=== PATIENT | male | born 1945 | race Caucasian/White ===

== ENCOUNTER → 2017-06-20 12:13 | Outpatient (CLI) | payer MEDICARE, SELFPAY ==
[2017-06-20 13:10] LABS: Basophils # 0.1 K/mm3 (0-0.2); Basophils % 1.2 % (0.1-2.0); Eosinophils # 0.4 K/mm3 (0.0-0.4); Eosinophils % 4.8 % (0.1-12.0); Hematocrit 44.7 % (42.0-52.0); Hemoglobin 14.5 g/dL (14.1-18.0); Lymphocytes # 2.6 K/mm3 (0.7-4.5); Lymphocytes % 34.3 K/mm3 (10-50); Mean Corpuscular HGB Conc 32.4 g/dL (31.8-35.4); Mean Corpuscular Hemoglobin 31.9 pg (27.0-31.2); Mean Corpuscular Volume 98.4 fl (80-94); Mean Platelet Volume 7.7 fl (7.4-10.4); Monocytes # 0.5 K/mm3 (0.1-1.0); Monocytes % 6.8 % (1.7-9.3); Neutrophils # 3.9 K/mm3 (1.8-7.8); Neutrophils % 52.9 % (37.0-80.0); Platelet Count 237 K/mm3 (142-424); Red Blood Count 4.54 M/mm3 (4.60-6.20); Red Cell Distribution Width 12.9 % (11.5-17.5); White Blood Count 7.4 K/mm3 (4.8-10.8)
[2017-06-20 14:25] LABS: Alanine Aminotransferase 46 U/L (12-78); Albumin Level 4.1 gm/dL (3.4-5.0); Albumin/Globulin Ratio 1.5 (1.1-1.8); Alkaline Phosphatase 57 U/L (46-116); Anion Gap 10.2 mEq/L (5-15); Aspartate Amino Transferase 19 U/L (15-37); Bilirubin,Total 0.4 mg/dL (0.2-1.0); Blood Urea Nitrogen 15 mg/dL (7-18); Calcium 9.1 mg/dL (8.5-10.1); Carbon Dioxide 32 mmol/L (21.0-32.0); Chloride 103 mmol/L (98-107); Chol/HDL Ratio 3.3 (1-3.5); Cholesterol 135 mg/dL (140-200); Creatinine,Serum 0.95 mg/dL (0.70-1.30); Estimated Glomerular Filt Rate 78 ml/min (>60); GFR (African American) 95 ML/MIN (>60); Globulin 2.8 gm/dl (1.3-3.2); Glucose 106 mg/dL (74-106); HDL Cholesterol 41 mg/dL (27-67); LDL Cholesterol 72 mg/dL (0-130); Potassium 4.2 mmoL/L (3.5-5.1); Sodium 141 mmol/L (136-145); Total Protein,Serum 6.9 gm/dL (6.4-8.2); Triglycerides 111 mg/dL (30-200); VLDL Cholesterol 22 mg/dL (0-40)
== END ==
PROVIDERS: Visit Provider Internal Medicine Adolescent Medicine
DX: R20.9 Unspecified disturbances of skin sensation (principal); R73.9 Hyperglycemia, unspecified; I25.10 Atherosclerotic heart disease of native coronary artery without angina pectoris
CPT/HCPCS: 36415; 80053; 80061; 83036; 85025

== ENCOUNTER → 2017-06-22 11:08 | Outpatient (CLI) | payer MEDICARE, OTHER, SELFPAY ==
--- NOTE | 2017-06-22 11:14 | MR_ITS ---
MR head/brain wo/w con Ordering Physician: Curtis Montes MD Patient Age: 72 years: Male HISTORY: ITS.REASON: FACIAL PARESTHESIAfacial paresthesia left jaw pain 1 week ago pain is improved TECHNIQUE: Precontrast Multiplanar FLAIR, T1, T2 weighted images along with axial diffusion/ADC imaging performed on 1.5 T. Siemens, MRI. Postcontrast imaging [id number] ProHance T1-weighted images axial & coronal plane performed COMPARISON :No previous head CT for relevant studies FINDINGS Diffusion images show no acute infarct or ischemia Postcontrast images show no abnormal areas of enhancement. No mass lesion. No subdural collection Mild diffuse cerebral atrophy. There are scattered small high signal foci throughout the cerebral hemispheres bilaterally as seen on both the sensitive FLAIR and T2 weighted images. These are diffusely scattered attending to be more subcortical and peripherally than typically seen for deep white matter disease. These are more numerous superiorly & with sparing of the temporal lobes. However I see no enhancing characteristics at these lesions to raise concern regarding other process or metastatic disease at these foci. Thus at this point more likely favor small vessel ischemic gliotic changes which has a right more peripheral distribution of the small vessel ischemic gliotic foci in this patient.. Is or history of vascular disease or vascular risk factors Also note slight increased signal of the central leanne bilaterally which most likely reflects some early white matter gliotic changes at the leanne, & extending the cerebellar peduncles bilateral.. No focal lacunar infarct. Although less likely, Minimal expression of Central pontine myelolysis changes could also yield similar pattern as might be considered if patient has history or risk factors to suggest such. Posterior fossa otherwise satisfactory. cerebellar hemisphere unremarkable well-maintained. CP angles are clear. IACs unremarkable. Increased signal, opacification of numerous mastoid air cells bilaterally particularly towards the mastoid tip region. This reflects mild/moderate bilateral mastoid effusion feature-slightly more evident on right. The paranasal sinuses are well-developed and clear. Orbits satisfactory/ unremarkable. Minor deviation nasal septum. Mid septum slight convex.. Laure bullosa of middle turbinate on right. . ===IMPRESSION ==== 1.. Scattered high signal foci throughout cerebral hemispheres bilaterally. These demonstrate slightly more peripheral distribution than typical seen before microangiopathic small vessel ischemic etiology however there is no enhancement nor other features]. Continue r favor small vessel disease etiology for these foci in this age patient.. 2. Also note slightly increased signal at the central leanne which most likely reflects similar small vessel ischemic gliotic changes as well.. (Unlikely Subtle central pontine myelolysis, although might be considered if appropriate history) 3. No mass lesion. No abnormal areas of enhancement. No territorial infarct. 4. Incidental Mild mastoid effusions bilaterally .
--- NOTE | 2017-06-22 12:21 | HMH.ITSHM ---
ATENOLOL ISOSORB MONO ER FOLI ACID LOSARTAN ATORVASTATIN ANORO ELLIPTA ACETAMINOPHIN BABY ASPIRIN MULTI VITAMIN
== END ==
PROVIDERS: PCP Internal Medicine Adolescent Medicine; Visit Provider Internal Medicine Adolescent Medicine
DX: R20.9 Unspecified disturbances of skin sensation (principal)
CPT/HCPCS: 70553; A9576

== ENCOUNTER → 2018-03-13 07:55 | Outpatient (CLI) | payer MEDICARE, OTHER, SELFPAY ==
--- NOTE | 2018-03-13 07:58 | CI_ITS ---
Cerebrovascular Exam Indications: 785.9 Bruit. IMPRESSIONS 1. The bilateral vertebral arteries are patent with normal antegrade flow. 2. Study suggests 20-49% stenosis involving the right internal carotid artery. No change from the study of 01-Jun-2016. 3. Study suggests 50-69% stenosis involving the right external carotid artery. No change from the study of 01-Jun-2016. 4. Study suggests 70-99% stenosis involving the left internal carotid artery. Disease progression from the study of 01-Jun-2016. 5. Study suggests 70-99% stenosis involving the left common carotid artery. Carotid duplex study. Complete study and Doppler flow study including spectral analysis, color and sheridan scale imaging. Height: Height: 167.6cm. Height: 66in. Weight: Weight: 68kg. Weight: 149.7lb. Body mass index: BMI: 24.2kg/m^2. Body surface area: BSA: 1.79m^2. Location: Vascular laboratory. Patient status: Outpatient. Tables: Arterial flow: + +--------+---------+ Location V sys V ed + +--------+---------+ Right CCA - proximal 44.8cm/s 13.4cm/s + +--------+---------+ Right CCA - distal 47.1cm/s 14.1cm/s + +--------+---------+ Right ECA 423cm/s -98.2cm/s + +--------+---------+ Right ICA - proximal 116cm/s 32.2cm/s + +--------+---------+ Right ICA - mid 130cm/s 33.8cm/s + +--------+---------+ Right ICA - distal 89.6cm/s 25.9cm/s + +--------+---------+ Right vertebral 80.8cm/s 24.7cm/s + +--------+---------+ Left CCA - proximal 324cm/s 33.4cm/s + +--------+---------+ Left CCA - mid 117cm/s 28.1cm/s + +--------+---------+ Left CCA - distal 91.2cm/s 18.2cm/s + +--------+---------+ Left ECA 140cm/s 18.2cm/s + +--------+---------+ Left ICA - proximal 254cm/s 53.3cm/s + +--------+---------+ Left ICA - mid 152cm/s 44.9cm/s + +--------+---------+ Left ICA - distal 123cm/s 42.1cm/s + +--------+---------+ Left vertebral 73cm/s 19.6cm/s + +--------+---------+ Velocity ratios: + + + + + + Right, V sys Right, V ed Left, V sys Left, V ed + + + + + + Max ICA/mid CCA 2.17 1.9 + + + + + + Max ICA/dist CCA 2.76 2.4 2.79 2.93 + + + + + + Distal ICA/mid CCA 1.05 1.5 + + + + + + (Report amended ) Electronically signed by: Tariq Castillo [id number]
== END ==
PROVIDERS: PCP Internal Medicine Adolescent Medicine; Visit Provider Internal Medicine
DX: E78.2 Mixed hyperlipidemia (principal); F17.200 Nicotine dependence, unspecified, uncomplicated; I10 Essential (primary) hypertension; I25.810 Atherosclerosis of coronary artery bypass graft(s) without angina pectoris; I73.9 Peripheral vascular disease, unspecified; I77.9 Disorder of arteries and arterioles, unspecified; R01.1 Cardiac murmur, unspecified; R09.89 Other specified symptoms and signs involving the circulatory and respiratory systems
CPT/HCPCS: 93880

== ENCOUNTER → 2018-07-15 10:05 | Outpatient (CLI) | payer MEDICARE, OTHER, SELFPAY ==
[2018-07-15 11:03] LABS: Basophils # 0.1 K/mm3 (0-0.2); Basophils % 0.8 % (0.1-2.0); Eosinophils # 0.4 K/mm3 (0.0-0.4); Eosinophils % 5.2 % (0.1-12.0); Hematocrit 41.5 % (42.0-52.0); Hemoglobin 13.8 g/dL (14.1-18.0); Lymphocytes # 2.5 K/mm3 (0.7-4.5); Mean Corpuscular HGB Conc 33.3 g/dL (31.8-35.4); Mean Corpuscular Hemoglobin 31.7 pg (27.0-31.2); Mean Corpuscular Volume 95.2 fl (80-94); Mean Platelet Volume 7.1 fl (7.4-10.4); Monocytes # 0.5 K/mm3 (0.1-1.0); Monocytes % 5.9 % (1.7-9.3); Neutrophils # 4.4 K/mm3 (1.8-7.8); Neutrophils % 56.2 % (37.0-80.0); Platelet Count 271 K/mm3 (142-424); Red Blood Count 4.36 M/mm3 (4.60-6.20); Red Cell Distribution Width 13.5 % (11.5-17.5); White Blood Count 7.8 K/mm3 (4.8-10.8)
[2018-07-15 11:58] LABS: Alanine Aminotransferase 42 U/L (12-78); Albumin Level 4.3 gm/dL (3.4-5.0); Albumin/Globulin Ratio 1.5 (1.1-1.8); Alkaline Phosphatase 57 U/L (46-116); Anion Gap 13.4 mEq/L (5-15); Aspartate Amino Transferase 24 U/L (15-37); Bilirubin,Total 0.5 mg/dL (0.2-1.0); Blood Urea Nitrogen 18 mg/dL (7-18); Calcium 9.9 mg/dL (8.5-10.1); Carbon Dioxide 30 mmol/L (21.0-32.0); Chloride 101 mmol/L (98-107); Chol/HDL Ratio 3.5 (1-3.5); Cholesterol 145 mg/dL (140-200); Creatinine,Serum 1.02 mg/dL (0.70-1.30); Estimated Glomerular Filt Rate 72 ml/min (>60); GFR (African American) 87 ML/MIN (>60); Globulin 2.9 gm/dl (1.3-3.2); Glucose 103 mg/dL (74-106); HDL Cholesterol 41 mg/dL (27-67); LDL Cholesterol 71 mg/dL (0-130); Potassium 4.4 mmoL/L (3.5-5.1); Sodium 140 mmol/L (136-145); Thyroid Stimulating Hormone 1.65 uIU/ml (0.358-3.740); Total Protein,Serum 7.2 gm/dL (6.4-8.2); Triglycerides 166 mg/dL (30-200); VLDL Cholesterol 33 mg/dL (0-40)
[2018-07-15 12:11] LABS: Erythrocyte Sedimentation Rate 11 mm/hr (0-20)
[2018-07-16 08:12] LABS: Vitamin B12 538 pg/mL (232-1245)
== END ==
PROVIDERS: Visit Provider Internal Medicine Adolescent Medicine
DX: M54.16 Radiculopathy, lumbar region (principal); R73.9 Hyperglycemia, unspecified; I10 Essential (primary) hypertension
CPT/HCPCS: 36415; 80053; 80061; 82607; 83036; 84443; 85025; 85651

== ENCOUNTER → 2018-07-22 08:56 | Outpatient (CLI) | payer MEDICARE, OTHER, SELFPAY ==
--- NOTE | 2018-07-22 09:07 | CT_ITS ---
CT angio abdomen/femoral INDICATION: Claudication, left-sided calf pain ITS.REASON: CLAUDICATION,PVD ORDERING PHYSICIAN: Curtis Montes MD PATIENT AGE: 73 years COMPARISON: None TECHNIQUE: Axial images are obtained following the bolus administration of 120 mg of Optiray 350 contrast. Sagittal and coronal reformatted images are reviewed as well. All CT scans at the facility use one or more dose reduction, viz: automated exposure control, ma/kV adjustment per patient size (including targeted exams where dose is matched to indication, i.e. head), or iterative reconstruction technique. FINDINGS: CT angiographic findings: Diffuse calcific atheromatous plaque is noted throughout. Moderate stenosis involves the ostium of the celiac artery of 50%. Severe stenosis involves the ostium of the superior mesenteric artery of 90% or greater. The inferior mesenteric artery is patent with high-grade stenosis at the ostium. Calcific plaque involves the proximal aspect of the right renal artery may be a stent in this area. No significant stenosis. There is high-grade stenosis at the ostium of the left renal artery of 70%. No evidence of aortic aneurysm. Severe atheromatous calcific plaque involves the iliac arteries. A patent stent is present at the proximal aspect of the right iliac. There is severe stenosis involving the right common femoral artery of 70%. Scattered atheromatous plaque with subsegmental stenoses involves the superficial femoral artery on the right with 70% stenosis involving the proximal right SFA short segment. There is 70% stenosis of the mid aspect of the right SFA and 75% short segment stenosis of the distal right SFA. Severe stenosis involves the distal right SFA proximal to the popliteal due to calcific plaque of 75-80%. Severe atheromatous changes involving the right popliteal and tibial peroneal trunk with scattered areas of 70-80% stenosis. Posterior tibial and dorsalis pedis arteries are patent at the ankle on the right. On the left there is a patent external iliac artery stent proximally. There is an area of 60-70% stenosis of the left common femoral artery. Segmental stenoses also involves the left superficial femoral artery with a longer area of high-grade stenosis involving the mid left SFA at 90%. This measures approximately 8 cm in length. The distal left SFA is occluded at Jimmy's canal with reconstitution of the popliteal with scattered segmental stenoses of the popliteal and tibial peroneal trunk. Severe stenosis involves the proximal tibial peroneal throughout the greater. Segmental stenoses involves the runoff vessels which are difficult to evaluate due to the small size. The posterior tibial artery is patent at the ankle on the left. Nonvascular findings: Bilateral renal cysts. Colonic diverticulosis. No evidence of diverticulitis Bilateral hernias containing fat. IMPRESSION: Abnormal CT angiogram of the abdominal aorta and bilateral runoffs. Significant arterial findings include: 1. 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 Severe calcific atherosclerotic changes of the lower extremities on both sides. There is severe left SFA long segment narrowing with occlusion distally with severe atherosclerotic changes of the tibial peroneal trunk on both sides. Severe stenosis of the right SFA and tibial peroneal trunk as well. Please see above for detailed description.
--- NOTE | 2018-07-22 09:37 | HMH.ITSHM ---
Current Home Medications as stated by this patient Lawrence Alonso or dental detail representative. []METOPROLOL,LOSATTIN,PLAVIX FLOIC ACID ATORVASTATIN,INHARANISA ASPIRIIN
== END ==
PROVIDERS: PCP Internal Medicine Adolescent Medicine; Visit Provider Internal Medicine Adolescent Medicine
DX: I70.213 Atherosclerosis of native arteries of extremities with intermittent claudication, bilateral legs (principal)
CPT/HCPCS: 75635; Q9967

== ENCOUNTER 2018-08-05 08:02 | Day surgery (SDC) | payer MEDICARE, OTHER, SELFPAY ==
[2018-08-05] VITALS (42 sets, daily range): BP systolic 91–180; BP diastolic 45–83; PULSE 53–69; RESP 16–20; TEMP 37.1; O2SAT 91–100; BMI 25.2
--- NOTE | 2018-08-05 | IR_ITS ---
DATE OF CATHETERIZATION:08/05/2018 10:47 AM PROCEDURE: 1. Left femoral arterial access 2. Left retrograde femoral angiogram 3. Catheter placement in the left common iliac artery 4. Left common iliac artery retrograde angiogram 5. Catheter placement in the abdominal aorta 6. Abdominal aortography with bilateral iliofemoral angiography 7. Bilateral iliofemoral runoff 8. Bare-metal stent deployment to the left common iliac artery INDICATION: 1. Peripheral artery disease 2. Coamo class III and IV claudication 3. 60 mm transstenotic gradient from the aorta to the left common femoral artery secondary to left common iliac artery stenosis Left common iliac artery stenosis Informed consent was obtained prior to the procedure. COMPLICATIONS: None ESTIMATED BLOOD LOSS: Blood loss less than 10 cc. TECHNIQUE:1% lidocaine used to anesthetize the right groin. The right femoral artery could not be accessed due to extensive and severe calcifications. At this point one percent lidocaine was then used to anesthetize the left groin and left femoral artery was accessed via the Seldinger technique. A 5 Chadian sheath was placed in the left femoral artery. Significant calcification was present which would not allow a J-wire to pass. An advantage wire was then used to traverse the iliofemoral system. Following this a JR4 catheter was advanced into the left common iliac artery where angiography was performed to determine the best route for passing the wire. After significant manipulation I was eventually able to pass the wire through the severe iliac artery stenosis. The pigtail catheter was in placed in the abdominal aorta and aortic pressure was measured. A 60 to 70 mm transstenotic gradient was identified. Following iliofemoral angiography and bilateral iliofemoral runoff 5 Chadian sheath was exchanged for a 6 Chadian sheath. Retrograde angiography was performed through the sheath and an 8 mm x 37 mm Medtronic EV 3 stents was deployed at 20 benito reducing the critical stenosis to 0%. Following this procedure no transstenotic gradient was identified. Closing ACT was 286 seconds. At the end of the procedure the patient transferred the postop holding are stable condition for sheath removal The distal abdominal aorta is severely calcified with no stenosis greater than 20% The right common iliac artery is severely calcified with the stent in its proximal through mid segment. This stent is widely patent with mild in-stent restenosis. The left common iliac artery has dense severe calcifications with severe ostial stenosis. The remaining stent has mild intimal hyperplasia with no significant stenosis greater than 30% Bilateral external iliac arteries are moderately calcified with no stenosis greater than 30% The right internal iliac artery is occluded while the left internal iliac artery has an ostial 80% stenosis but is patent. Distally the vessel has 90% tandem stenoses The right common iliac artery is severely densely calcified subtotally occluded with very scant antegrade flow supplying the SFA and profundus. The left common femoral artery has a distal 80% concentric stenosis proximal to the SFA The bilateral profunda femoris arteries are patent The bilateral superficial femoral arteries are severely densely calcified but are patent with slow antegrade flow the left popliteal artery appears to be subtotally occluded and densely calcified with collaterals from the profunda femoris. The right popliteal artery has 80% eccentric stenoses but is patent with antegrade flow. Distally the vasculature is severely diseased and calcified. With very slow antegrade flow to the foot Impression: Dense extensive calcification as described above Severe ostial left common iliac artery stenosis which was succes
[2018-08-05 09:05] LABS: Basophils # 0.1 K/mm3 (0-0.2); Basophils % 0.9 % (0.1-2.0); Eosinophils # 0.4 K/mm3 (0.0-0.4); Eosinophils % 6.1 % (0.1-12.0); Hematocrit 38.2 % (42.0-52.0); Hemoglobin 13.1 g/dL (14.1-18.0); Lymphocytes # 2.3 K/mm3 (0.7-4.5); Lymphocytes % 31.9 % (10-50); Mean Corpuscular HGB Conc 34.3 g/dL (31.8-35.4); Mean Corpuscular Hemoglobin 32.1 pg (27.0-31.2); Mean Corpuscular Volume 93.7 fl (80-94); Mean Platelet Volume 7.1 fl (7.4-10.4); Monocytes # 0.4 K/mm3 (0.1-1.0); Monocytes % 5.7 % (1.7-9.3); Neutrophils % 55.4 % (37.0-80.0); Platelet Count 260 K/mm3 (142-424); Red Blood Count 4.07 M/mm3 (4.60-6.20); Red Cell Distribution Width 13.3 % (11.5-17.5); White Blood Count 7.1 K/mm3 (4.8-10.8)
[2018-08-05 09:12] LABS: Anion Gap 10.5 mEq/L (5-15); Blood Urea Nitrogen 18 mg/dL (7-18); Calcium 9.4 mg/dL (8.5-10.1); Carbon Dioxide 31 mmol/L (21.0-32.0); Chloride 101 mmol/L (98-107); Creatinine Clearance Estimated 63 mL/min (50-200); Creatinine,Serum 1.06 mg/dL (0.70-1.30); Estimated Glomerular Filt Rate 69 ml/min (>60); GFR (African American) 83 ML/MIN (>60); Glucose 96 mg/dL (74-106); Potassium 3.5 mmoL/L (3.5-5.1); Sodium 139 mmol/L (136-145)
[2018-08-05 12:49] LABS: CATHL Activated Clotting Time 289 SEC (74-125)
--- NOTE | 2018-08-05 13:57 | HMH.PHACLD ---
Lawrence Alonso has received discharge medication counseling on the following medications: PATIENT ALREADY TAKING ASPIRIN, PLAVIX, METOPROLOL, LOSARTAN/HCTZ, AND ATORVASTATIN AT HOME. NO NEW HOME MEDICATIONS THIS TIME. PATIENT ASKED ABOUT PAIN MEDICATION DUE TO LEG PAIN AND BLOCKAGE. THIS WAS REFERRED ON TO [facility] WHO IS CALLING [facility].
== END 2018-08-05 19:40 | disposition home or self-care (01) ==
LOC: CATHLAB 08:03
PROVIDERS: PCP Internal Medicine Adolescent Medicine; Visit Provider Internal Medicine
DX: I70.213 Atherosclerosis of native arteries of extremities with intermittent claudication, bilateral legs (principal); I70.223 Atherosclerosis of native arteries of extremities with rest pain, bilateral legs; I70.92 Chronic total occlusion of artery of the extremities; Z95.820 Peripheral vascular angioplasty status with implants and grafts; I10 Essential (primary) hypertension; Z72.0 Tobacco use; I25.810 Atherosclerosis of coronary artery bypass graft(s) without angina pectoris; Z88.0 Allergy status to penicillin; Z88.8 Allergy status to other drugs, medicaments and biological substances; Z79.82 Long term (current) use of aspirin; Z79.51 Long term (current) use of inhaled steroids; Z79.899 Other long term (current) drug therapy; I77.1 Stricture of artery
CPT/HCPCS: 37221; 80048; 85025; 85347; 99152; 99153; C1725; C1769; C1876; C1894; J1644; J2720; Q9967

== ENCOUNTER → 2018-08-14 08:45 | Outpatient (CLI) | payer MEDICARE, OTHER, SELFPAY ==
[2018-08-14 09:13] LABS: Basophils # 0.1 K/mm3 (0-0.2); Basophils % 1.1 % (0.1-2.0); Eosinophils # 0.5 K/mm3 (0.0-0.4); Eosinophils % 6.9 % (0.1-12.0); Hematocrit 37.7 % (42.0-52.0); Hemoglobin 12.7 g/dL (14.1-18.0); Lymphocytes # 2.6 K/mm3 (0.7-4.5); Lymphocytes % 36.8 % (10-50); Mean Corpuscular HGB Conc 33.8 g/dL (31.8-35.4); Mean Corpuscular Hemoglobin 31.5 pg (27.0-31.2); Mean Corpuscular Volume 93.2 fl (80-94); Mean Platelet Volume 6.9 fl (7.4-10.4); Monocytes # 0.5 K/mm3 (0.1-1.0); Monocytes % 6.4 % (1.7-9.3); Neutrophils # 3.4 K/mm3 (1.8-7.8); Neutrophils % 48.9 % (37.0-80.0); Platelet Count 284 K/mm3 (142-424); Red Blood Count 4.04 M/mm3 (4.60-6.20); Red Cell Distribution Width 13.2 % (11.5-17.5); White Blood Count 7.1 K/mm3 (4.8-10.8)
[2018-08-14 11:20] LABS: Anion Gap 14.4 mEq/L (5-15); Blood Urea Nitrogen 16 mg/dL (7-18); Calcium 10.1 mg/dL (8.5-10.1); Carbon Dioxide 30 mmol/L (21.0-32.0); Chloride 100 mmol/L (98-107); Creatinine,Serum 0.93 mg/dL (0.70-1.30); Estimated Glomerular Filt Rate 80 ml/min (>60); GFR (African American) 97 ML/MIN (>60); Glucose 105 mg/dL (74-106); Potassium 4.4 mmoL/L (3.5-5.1); Sodium 140 mmol/L (136-145)
== END ==
PROVIDERS: Visit Provider Internal Medicine
DX: I25.10 Atherosclerotic heart disease of native coronary artery without angina pectoris (principal)
CPT/HCPCS: 36415; 80048; 85025

== ENCOUNTER 2019-09-05 23:43 | Emergency (ER) | payer MEDICARE, OTHER, SELFPAY ==
[2019-09-05 23:56] VITALS: BP 168/89; RESP 18; TEMP 36.6; O2SAT 98; BMI 24.2
--- NOTE | 2019-09-05 23:56 | ECG_ITS ---
APPROVED REPORT Exam: Resting ECG HR:78 bpm ECG Measurements Heart Rate 78 AXES ND 154 P 84 QRSd 98 QRS 70 QT 414 T 67 QTc 471 <Conclusion> Normal sinus rhythm with PAC'S Consider inferolateral ischemia Abnormal ECG Electronically signed by : Jason Menezes, 09/09/2019 08:51:39
[2019-09-06 00:28] VITALS: PULSE 70; PULSE 74
--- NOTE | 2019-09-06 00:43 | XR_ITS ---
PROCEDURE: XR CHEST 2V Patient Age:74Y CLINICAL HISTORY: shortness of air, dyspnea patient has COPD quit smoking regularly 1 year ago. 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 COMPARISON: CXR CHEST(2 VIEWS-NOT PORTABLE) from 03/02/2016 CXR CHEST(2 VIEWS-NOT PORTABLE) from 03/03/2016 FINDINGS: Upright PA and lateral chest performed. Nothing definitely acute. Lungs hyperexpansion with flattening of diaphragm evident of reflecting COPD. The slight blunting at the CP angles is similar to previous studies in reflect such as well. No focal consolidation or pneumonia on Only some scant linear scarring atelectasis towards lung bases most likely right. . A previous sternotomy, CABG. Heart normal size zack and mediastinal structures satisfactory Chest wall and T-spine satisfactory stable. Again the slight protruding protruding tip of sternum noted and likely correlates with the clinically palpable prominent right rib beneath the right breast IMPRESSION: Stable chest with nothing definitely acute COPD/hyperexpansion again noted. Sternotomy/CABG again noted Dictated by: Дмитрий He MD 09/06/2019 09:00 Electronically signed by Дмитрий He MD in [place] 09/06/2019 09:00
[2019-09-06 00:48] LABS: Basophils # 0.3 K/mm3 (0-0.2); Basophils % 2.3 % (0.1-2.0); Eosinophils # 1.5 K/mm3 (0.0-0.4); Eosinophils % 12.5 % (0.1-12.0); Hematocrit 45.8 % (42.0-52.0); Hemoglobin 15.5 g/dL (14.1-18.0); Lymphocytes % 25.3 % (10-50); Mean Corpuscular HGB Conc 33.8 g/dL (31.8-35.4); Mean Corpuscular Hemoglobin 33.6 pg (27.0-31.2); Mean Corpuscular Volume 99.4 fl (80-94); Mean Platelet Volume 7.5 fl (7.4-10.4); Monocytes # 0.7 K/mm3 (0.1-1.0); Monocytes % 6.2 % (1.7-9.3); Neutrophils # 6.4 K/mm3 (1.8-7.8); Neutrophils % 53.6 % (37.0-80.0); Platelet Count 243 K/mm3 (142-424); Red Blood Count 4.61 M/mm3 (4.60-6.20); Red Cell Distribution Width 13.9 % (11.5-17.5); White Blood Count 11.9 K/mm3 (4.8-10.8)
[2019-09-06 00:56] LABS: Alanine Aminotransferase 36 U/L (12-78); Albumin Level 5.2 g/dl (3.5-5.0); Albumin/Globulin Ratio 1.6 (1.1-1.8); Alkaline Phosphatase 73 U/L (38-126); Anion Gap 9.8 mEq/L (5-15); Aspartate Amino Transferase 41 U/L (17-59); Bilirubin,Total 0.4 mg/dl (0.2-1.3); Blood Urea Nitrogen 16 mg/dl (9-20); Calcium 10.3 mg/dl (8.4-10.2); Carbon Dioxide 33 mmol/L (22.0-30.0); Chloride 99 mmol/L (98-107); Creatinine Clearance Estimated 63 mL/min (50-200); Estimated Glomerular Filt Rate 95 ml/min (>60); GFR (African American) 115 ML/MIN (>60); Globulin 3.2 g/dL (1.3-3.2); Glucose 114 mg/dl (74-100); Potassium 3.8 mmoL/L (3.5-5.1); Sodium 138 mmol/L (136-145); Total Protein,Serum 8.4 g/dl (6.3-8.2)
--- NOTE | 2019-09-06 01:03 | HMH.EDSOB ---
ED Disposition Clinical Impression: Acute exacerbation of chronic obstructive airways disease Disposition: Home, Self-Care Condition on Discharge: Good Instructions: DI for Chronic Obstructive Pulmonary Disease Prescriptions: Azithromycin 250 mg PO DAILY 5 Days #6 tab Transmission Status: Pending to [id number] methylPREDNISolone [Medrol 4mg tab] 4 mg PO DIRECTED #21 tab Transmission Status: Pending to [id number] Referrals: Curtis Montes MD [Primary Care Provider] - - Critical Care Critical Care Time: No Attestation: On 09/05/19, the high probability of a clinically significant, sudden or life threatening deterioration of the following system(s) required my full and direct attention, intervention and personal management. The time I documented below is in addition to time spent performing reported procedures but includes the following listed in this critical care notation. Medical Decision Making - Medical Records Medical records reviewed: Yes: I reviewed the patient's medical records. - Ricardo Inquiry Pt receiving controlled substance: No Vital Signs: 09/05/19 23:56 09/06/19 00:28 Temperature 97.8 F Temperature Source Oral Pulse Rate 74 Respiratory Rate 18 Blood Pressure [Right Arm] 168/89 H Blood Pressure Mean [Right Arm] 115 Blood Pressure Source [Right Arm] Automatic Cuff Blood Pressure Position [Right Arm] Sitting 02 Sat by Pulse Oximetry 98 Oxygen Delivery Method Room Air - Lab Data Lab results reviewed: Yes: I reviewed the patient's lab results. Lab Results 09/06/19 00:02: WBC 11.9 H, RBC 4.61, Hgb 15.5, Hct 45.8, MCV 99.4 H, MCH 33.6 H, MCHC 33.8, RDW 13.9, Plt Count 243, MPV 7.5, Neut % (Auto) 53.6, Lymph % (Auto) 25.3, [place] % (Auto) 6.2, Eos % (Auto) 12.5 H, Baso % (Auto) 2.3 H, Neut # (Auto) 6.4, Lymph # (Auto) 3.0, [place] # (Auto) 0.7, Eos # (Auto) 1.5 H, Baso # (Auto) 0.3 H 09/06/19 00:02: Sodium 138, Potassium 3.8, Chloride 99, Carbon Dioxide 33 H, Anion Gap 9.8, BUN 16, Creatinine 0.80, Estimated Creat Clear 63, Estimated GFR 95, Est GFR ( Amer) 115, Glucose 114 H, Calcium 10.3 H, Total Bilirubin 0.4, AST 41, ALT 36, Alkaline Phosphatase 73, Total Protein 8.4 H, Albumin 5.2 H, Globulin 3.2, Albumin/Globulin Ratio 1.6 Result diagrams: 09/06/19 00:02 09/06/19 00:02 Orders (Tests/Meds): ED MEDICATIONS Generic Name Dose Route Start Last Admin Trade Name Freq PRN Reason Stop Dose Admin Sodium Chloride 1,000 mls @ 999 mls/hr 09/06/19 00:15 09/06/19 00:10 Sod Chlor 0.9% 1000ml Bag IV 09/06/19 01:15 999 mls/hr .Q1H1M RADHA Administration Sodium Chloride 10 ml 09/06/19 00:32 Sodium Chloride 0.9% 10ml Vial IV 10/06/19 00:31 NEEDED PRN dilute protonix Discontinued Medications Generic Name Dose Route Start Last Admin Trade Name Freq PRN Reason Stop Dose Admin Methylprednisolone Sodium Succinate 125 mg 09/06/19 00:07 09/06/19 00:09 Solu-Medrol 125mg/2ml Vial IV 09/06/19 00:08 125 mg ONCE ONE Administration Pantoprazole Sodium 40 mg 09/06/19 00:32 Protonix 40mg Vial IV 09/06/19 00:33 ONCE ONE ORDERS Category Date Time Status Chest XR 2 view (NOT portable) [XR chest 2V] Stat Exams 09/06/19 00:43 Ordered Comprehensive Metabolic Panel Stat Lab 09/06/19 00:02 Results Troponin I Q3H Lab 09/06/19 03:45 Ordered Troponin I Q3H Lab 09/06/19 06:45 Ordered Troponin I Stat Lab 09/06/19 00:02 Results - Radiology Data #1 Image(s): Chest Preliminary Findings: Normal/NAD - ECG Data Tracing #1 I reviewed this ECG and interpreted as documented below: Normal Sinus Rhythm: Yes Resp/SOB HPI - General Chief Complaint: Shortness of Breath/Dyspnea Stated Complaint: Difficulty breathing Time Seen by Provider: 09/06/19 01:04 Mode of Arrival: Family Vehicle Limitations: No Limitations Description of Symptoms (Recalled from ER Triage Doc. by RN): shortness of air
[2019-09-06 01:08] LABS: Troponin I 0.02 ng/ml (0.00-0.034)
[2019-09-06 01:28] VITALS: BP 174/71; PULSE 72; RESP 17; TEMP 36.6; O2SAT 98
== END 2019-09-06 01:31 | disposition home or self-care (01) ==
PROVIDERS: Emergency Provider Family Medicine; PCP Internal Medicine Adolescent Medicine
DX: J44.1 Chronic obstructive pulmonary disease with (acute) exacerbation (principal); I25.10 Atherosclerotic heart disease of native coronary artery without angina pectoris; Z95.1 Presence of aortocoronary bypass graft; Z87.891 Personal history of nicotine dependence; Z88.0 Allergy status to penicillin; Z79.899 Other long term (current) drug therapy
CPT/HCPCS: 71046; 80053; 84484; 85025; 93005; 96365; 96375; 99282; 99283

== ENCOUNTER → 2019-10-20 09:47 | Outpatient (CLI) | payer MEDICARE, OTHER, SELFPAY ==
[2019-10-20 10:30] VITALS: PULSE 75; PULSE 76
== END ==
PROVIDERS: PCP Internal Medicine Adolescent Medicine; Visit Provider Internal Medicine Adolescent Medicine
DX: J44.1 Chronic obstructive pulmonary disease with (acute) exacerbation (principal)
CPT/HCPCS: 94060; 94618; 94640; 94726; 94729

== ENCOUNTER → 2020-02-26 15:49 | Outpatient (CLI) | payer MEDICARE, OTHER, SELFPAY ==
--- NOTE | 2020-02-26 15:55 | XR_ITS ---
PROCEDURE: XR CHEST 2V CLINICAL HISTORY: COPD W/ ACUTE EXACERBATION COMPARISON: CR CXR CHEST(2 VIEWS-NOT PORTABLE) from 03/02/2016 CR CXR CHEST(2 VIEWS-NOT PORTABLE) from 03/03/2016 CR XR CHEST 2V from 09/06/2019 FINDINGS: Prior CABG. Normal heart size. COPD. Hyperexpansion of the lungs with eventration of the diaphragm. No lobar consolidation or collapse. There are surgical clips in the neck on the left. No acute bony abnormalities. IMPRESSION: COPD. No change with no acute finding Dictated by: Tariq Castillo MD 02/26/2020 16:18 Tariq Castillo MD in [place] 02/26/2020 16:18
== END ==
PROVIDERS: PCP Internal Medicine Adolescent Medicine; Visit Provider Internal Medicine Adolescent Medicine
DX: J44.1 Chronic obstructive pulmonary disease with (acute) exacerbation (principal)
CPT/HCPCS: 71046

== ENCOUNTER → 2020-02-27 10:05 | Outpatient (CLI) | payer MEDICARE, OTHER, SELFPAY ==
[2020-02-27 11:46] LABS: Basophils % 0.3 % (0.1-2.0); Eosinophils % 0.1 % (0.1-12.0); Hematocrit 48.1 % (42.0-52.0); Hemoglobin 15.8 g/dL (14.1-18.0); Lymphocytes # 1.2 K/mm3 (0.7-4.5); Lymphocytes % 11.7 % (10-50); Mean Corpuscular HGB Conc 32.9 g/dL (31.8-35.4); Mean Corpuscular Hemoglobin 31.9 pg (27.0-31.2); Mean Corpuscular Volume 97.1 fl (80-94); Mean Platelet Volume 7.3 fl (7.4-10.4); Monocytes # 0.3 K/mm3 (0.1-1.0); Monocytes % 2.8 % (1.7-9.3); Neutrophils # 8.8 K/mm3 (1.8-7.8); Neutrophils % 85.1 % (37.0-80.0); Platelet Count 351 K/mm3 (142-424); Red Blood Count 4.95 M/mm3 (4.60-6.20); Red Cell Distribution Width 13.6 % (11.5-17.5); White Blood Count 10.3 K/mm3 (4.8-10.8)
[2020-02-27 11:50] LABS: MANUAL DIFFERENTIAL MANUAL DIFFERENTIAL (MANUAL DIFF)
[2020-02-27 13:13] LABS: Erythrocyte Sedimentation Rate 7 mm/hr (0-20)
[2020-02-27 14:40] LABS: Alanine Aminotransferase 28 U/L (12-78); Alkaline Phosphatase 88 U/L (38-126); Anion Gap 14.7 mEq/L (5-15); Aspartate Amino Transferase 29 U/L (17-59); Bilirubin,Total 0.6 mg/dl (0.2-1.3); Blood Urea Nitrogen 15 mg/dl (9-20); Calcium 10.5 mg/dl (8.4-10.2); Carbon Dioxide 30 mmol/L (22.0-30.0); Chloride 96 mmol/L (98-107); Chol/HDL Ratio 2.6 (1-3.5); Cholesterol 155 mg/dl (140-200); Estimated Glomerular Filt Rate 95 ml/min (>60); GFR (African American) 115 ML/MIN (>60); Globulin 2.5 g/dL (1.3-3.2); Glucose 128 mg/dl (74-100); HDL Cholesterol 60 mg/dl (40-60); Potassium 4.7 mmoL/L (3.5-5.1); Sodium 136 mmol/L (136-145); Total Protein,Serum 7.5 g/dl (6.3-8.2); Triglycerides 64 mg/dl (30-150); VLDL Cholesterol 13 mg/dL (0-40)
[2020-02-27 14:43] LABS: Lymphocytes % 17 % (10-50); Neutrophils % 83 % (42-76); Platelet Estimate Normal; RBC Morphology Normal; Total Cells Counted 100
[2020-02-27 14:50] LABS: Direct LDL Cholesterol 85.21 mg/dL (100-129)
== END ==
PROVIDERS: Visit Provider Internal Medicine Adolescent Medicine
DX: L40.50 Arthropathic psoriasis, unspecified (principal); R73.9 Hyperglycemia, unspecified
CPT/HCPCS: 36415; 80053; 80061; 85007; 85025; 85651

== ENCOUNTER → 2020-03-02 09:10 | Outpatient (CLI) | payer MEDICARE, OTHER, SELFPAY | PROVIDERS: Visit Provider Internal Medicine Adolescent Medicine | DX: R73.9 Hyperglycemia, unspecified (principal) | CPT/HCPCS: 36415; 83036 ==

== ENCOUNTER → 2020-03-15 08:26 | Outpatient (CLI) | payer MEDICARE, OTHER, SELFPAY ==
--- NOTE | 2020-03-15 08:30 | CT_ITS ---
PROCEDURE: CT LUNG SCREENING CLINICAL INDICATION: H/O NICOTINE DEPENDENCE Former Smoker Quit smoking 1 year ago 75 pack year smoking history COMPARISON: No exams were available for comparison TECHNIQUE: The exam was performed on a GE Light Speed [address] scanner using 2.90 mGy CTDI. A low dose helical CT CHEST was performed on a multi-detector scanner. All CT scans at the facility use one or more dose reduction, viz: automated exposure control, ma/kV adjustment per patient size (including targeted exams where dose is matched to indication, i.e. head), or iterative reconstruction technique. The LDCT was performed in a facility that meets the criteria for the screening program. Data regarding this exam was submitted to ACR which is an approved registry. The order for this exam indicates that it came as a result of a lung cancer screening counseling shard decision-making visit that included all the elements required of such a visit including smoking cessation. The radiologist interpreting this exam meets the CMS criteria for the LDCT lung cancer screening program. The exam is reported using the Lung-RADS classification scale and reported to the ACR registry. NOTE: This study was performed for the specific purposes of lung cancer screening and is not an alternative to diagnostic chest CT. RADIATION DOSE: CTDI vol(CT dose Index-volume) = 2.90mG DLP (Dose Length Product) = 117.50 mGcm FINDINGS: COPD changes. There is a 4 mm sub solid nodular opacity in the left upper lobe medially. There is a faint area of ground-glass density in the lingula nonspecific. OTHER FINDINGS: Prior CABG. Degenerative changes thoracic spine. Atherosclerotic changes aorta. Extensive coronary artery calcification. There is scattered small nodes in the mediastinum. Small hypodensity is present in the right lobe of the liver inferiorly at 9 mm nonspecific. Cannot further evaluate on this exam. There is a left renal cyst at 3 cm. IMPRESSION: Lung-RADS Category 2 Benign Appearance or Behavior Follow-up: Continue annual screening with LDCT in 12 months Dictated by: Tariq Castillo MD 03/29/2020 09:48 Tariq Castillo MD in [place] 03/29/2020 09:48
== END ==
PROVIDERS: PCP Internal Medicine Adolescent Medicine; Visit Provider Internal Medicine Adolescent Medicine
DX: Z87.891 Personal history of nicotine dependence (principal); Z12.2 Encounter for screening for malignant neoplasm of respiratory organs

== ENCOUNTER → 2020-06-18 13:31 | Outpatient (CLI) | payer MEDICARE, OTHER, SELFPAY | PROVIDERS: PCP Internal Medicine Adolescent Medicine; Visit Provider Internal Medicine Adolescent Medicine | DX: I35.0 Nonrheumatic aortic (valve) stenosis (principal) | CPT/HCPCS: 93306 ==

== ENCOUNTER → 2020-09-07 09:36 | Outpatient (POV) | payer MEDICARE, OTHER, SELFPAY ==
[2020-09-07 09:55] LABS: Basophils # 0.1 K/mm3 (0-0.2); Basophils % 0.9 % (0.1-2.0); Eosinophils # 0.6 K/mm3 (0.0-0.4); Eosinophils % 6.2 % (0.1-12.0); Hematocrit 39.3 % (42.0-52.0); Hemoglobin 12.9 g/dL (14.1-18.0); Lymphocytes # 2.1 K/mm3 (0.7-4.5); Lymphocytes % 22.3 % (10-50); Mean Corpuscular HGB Conc 32.8 g/dL (31.8-35.4); Mean Corpuscular Hemoglobin 31.4 pg (27.0-31.2); Mean Corpuscular Volume 95.6 fl (80-94); Mean Platelet Volume 7.6 fl (7.4-10.4); Monocytes # 0.5 K/mm3 (0.1-1.0); Monocytes % 5.5 % (1.7-9.3); Platelet Count 267 K/mm3 (142-424); Red Blood Count 4.11 M/mm3 (4.60-6.20); Red Cell Distribution Width 14.5 % (11.5-17.5); White Blood Count 9.3 K/mm3 (4.8-10.8)
[2020-09-07 10:30] LABS: Chloride 102 mmol/L (98-107)
[2020-09-07 10:31] LABS: Potassium 4.4 mmoL/L (3.5-5.1); Sodium 141 mmol/L (136-145)
[2020-09-07 10:33] LABS: Alanine Aminotransferase 26 U/L (12-78); Alkaline Phosphatase 66 U/L (38-126); Anion Gap 13.4 mEq/L (5-15); Aspartate Amino Transferase 29 U/L (17-59); Bilirubin,Total 0.9 mg/dl (0.2-1.3); Blood Urea Nitrogen 21 mg/dl (9-20); Carbon Dioxide 30 mmol/L (22.0-30.0); Estimated Glomerular Filt Rate 65 ml/min (>60); GFR (African American) 79 ML/MIN (>60)
[2020-09-07 10:34] LABS: Albumin Level 4.6 g/dl (3.5-5.0); Albumin/Globulin Ratio 2.1 (1.1-1.8); Calcium 9.7 mg/dl (8.4-10.2); Globulin 2.2 g/dL (1.3-3.2); Glucose 103 mg/dl (74-100); Total Protein,Serum 6.8 g/dl (6.3-8.2)
== END ==
PROVIDERS: PCP Internal Medicine Adolescent Medicine; Visit Provider Dermatology
DX: I10 Essential (primary) hypertension (principal)
CPT/HCPCS: 36415; 80053; 85025

== ENCOUNTER → 2020-09-21 14:35 | Outpatient (POV) | payer MEDICARE, OTHER, SELFPAY | PROVIDERS: Visit Provider Dermatology | DX: Z00.00 Encounter for general adult medical examination without abnormal findings (principal) ==

== ENCOUNTER → 2020-09-27 06:55 | Outpatient (CLI) | payer MEDICARE, OTHER, SELFPAY ==
--- NOTE | 2020-09-27 06:56 | NM_ITS ---
APPROVED REPORT Exam: Nuclear Stress Test Indication: CAD, CABG, HTN, High cholesterol, Tobacco use, SOB, Fatigue Patient Location: Outpatient Stress Tech: Mare Cronin MS Tech:Linda Levi, ARRT, RT (R)(N) Ht: 5 ft 6 in Wt: 150 lbs HR: 63 bpm BP: 149/67 mmHg BSA: 1.77 m2 BMI: 24.2 History: CAD, CABG, HTN, High cholesterol, Tobacco use, SOB, Fatigue Procedure: Patient received a 0.4 mg of intravenous Lexiscan, resting heart rate 63 bpm, resting blood pressure 149/67 mmHg, with Lexiscan maximum heart rate achived was 80 bpm which is Less than 85 % of the maximum predicted heart rate and blood pressure was 120/61 mmHg. With Lexiscan, patient denied any complaint of chest pain. Electrocardiogram Resting electrocardiogram showed sinus rhythm, with Lexiscan there is less than 1.[address] segment depression noted from the baseline EKG. The EKG portion of the Lexiscan is nondiagnostic. Cardiac Stress and Resting SPECT Images: Cardiac Stress and Resting SPECT images were obtained using technetium 99m Myoview 32.3 mCi stress and 9.83 mCi at rest. Gated SPECT for analysis of segmental wall motion and calculation of the ejection fraction also done. Prone images were also obtained. Cardiac stress and rest SPECT images show uniform myocardial activity without segmental perfusion abnormality, computer derived ejection fraction is 48% with no regional wall motion abnormality, however there is transient ischemic dilatation of the left ventricle seen, raising the concerns for presence of balanced ischemia. Conclusion: 1. The EKG portion of the Lexiscan is nondiagnostic 2. No scintigraphic evidence of reversible ischemia seen, computer derived ejection fraction 48% with no regional wall motion abnormality, however there is transient ischemic dilatation of the left ventricle seen, raising the concerns for presence of balanced ischemia. 3. Other causes for transient ischemic dilatation include hypertensive heart disease, microvascular disease, diabetes mellitus. Clinical correlation is recommended. 4. Abnormal Lexiscan Myoview study. Electronically signed by : Sean Nicole, 09/27/2020 19:39:02
--- NOTE | 2020-09-27 06:56 | CA_ITS ---
APPROVED REPORT Exam: Pharmacologic Technologist: Mare Cronin, Ht: 5 ft 6 in Wt: 158 lbs BSA: 1.81 m2 HR: 63 bpm BP: 149/67 mmHg Medical History Medications: Aspirin,,,,, Losartan,,,,, FOLIC ACID,,,,, Albuterol,,,,, CloPIdogrel,,,,, Toprol XL,,,,, AtorvaASTATIN,,,,, Multivitamin,,,,, PantoprazLE,,,,, ANora ELIPTA,,,,, Stress Test Details Test: LEXISCAN HR Resting HR: 58 bpm Max Heart Rate (APMHR): 146.057704 bpm Max HR Achieved: 88 bpm Target HR (85% APMHR): 124.868727 bpm % of APMHR: 60.27 Recovery HR: 74 bpm BP Resting BP: 149/67 mmHg Max BP: 149/67 mmHg Recovery BP: 111.0/55.0 mmHg ECG Clinical Exercise duration: 04:01 min Highest Stage Achieved: Stress ECG Conclusion Lexiscan portion completed. Pt c/o shortness of breath during peak infusion. Symptoms: No CP (+)SOB during peak infusion. Resolved in recovery. Arrhythmias/Ectopy: Occ PVC Occ PAC. ST-T Changes: Greater than 1.5mm ST Depression. Conclusion: Images to follow. Test Summary RECOVERY 04:00 . . 75 . 111/ 55 . . Stage 1 . . . . . . . Myoview Injected Stage 1 01:00 . . 82 . . . . Stage 2 01:00 . . 85 . 120/ 61 . . Stage 3 01:00 . . 82 . 131/ 54 . . Stage 4 01:00 . . 81 . 118/ 52 . . Stage 4 01:01 . . 81 . 118/ 52 . Stop exercise at 04:01 RECOVERY 01:00 . . 80 . 110/ 57 . . RECOVERY 02:00 . . 75 . 112/ 60 . . RECOVERY 03:00 . . 76 . 118/ 56 . . RECOVERY 04:00 . . 75 . 111/ 55 . . Electronically signed by : Sean Nicole, 09/27/2020 19:26:42
--- NOTE | 2020-09-27 08:46 | HMH.ITSHM ---
Current Home Medications as stated by this patient Lawrence Alonso or customer account representative. []METOPROLOL CLOPIDOGREL LOSARTAN FOLIC ACID ATORVASTATIN ASA MULTIVITAMIN PANTOPRAZOLE ALVARADO STRINGER
[2020-09-27 18:17] LABS: Vitamin B12 424 pg/mL (239-931)
[2020-10-29 07:14] LABS: 1,25 Dihydroxy Vitamin D 45; 1,25-Dihydroxy, Vitamin D-2 <10; 1,25-Dihydroxy, Vitamin D-3 44
== END ==
PROVIDERS: PCP Internal Medicine Adolescent Medicine; Visit Provider Urology
DX: E78.5 Hyperlipidemia, unspecified (principal); I10 Essential (primary) hypertension; I25.10 Atherosclerotic heart disease of native coronary artery without angina pectoris; I73.9 Peripheral vascular disease, unspecified; I77.9 Disorder of arteries and arterioles, unspecified; R06.00 Dyspnea, unspecified; R42 Dizziness and giddiness; Z95.1 Presence of aortocoronary bypass graft
CPT/HCPCS: 78452; 82607; 82652; 93017; A9502; J2785

== ENCOUNTER → 2020-09-27 16:12 | Outpatient (CLI) | payer MEDICARE, OTHER, SELFPAY | PROVIDERS: Visit Provider Urology | DX: R06.02 Shortness of breath (principal); R42 Dizziness and giddiness; I10 Essential (primary) hypertension; I25.810 Atherosclerosis of coronary artery bypass graft(s) without angina pectoris | CPT/HCPCS: 78452; 82607; 82652; 93017; A9502; J2785 ==

== ENCOUNTER → 2020-10-26 10:05 | Outpatient (CLI) | payer MEDICARE, OTHER, SELFPAY ==
--- NOTE | 2020-10-26 10:05 | CA_ITS ---
APPROVED REPORT Anodiser: CT Laterality: Bilateral Indications: MIMI Risk Factors Hypertension: Hyperlipidemia Smoking Surgery/Intervention Carotid Stent: left Doppler Spectral Velocity Analysis ECA (R) 557.70/ cm/s ECA (L) 185.80/ cm/s dICA (R) 76.40/22.20 cm/s dICA (L) 92.50/28.90 cm/s Tom (R) 74.60/22.00 cm/s Tom (L) 79.70/23.00 cm/s pICA (R) 76.40/15.80 cm/s pICA (L) 82.30/29.90 cm/s dCCA (R) 39.70/12.00 cm/s dCCA (L) 85.40/17.00 cm/s pCCA (R) 63.60/8.20 cm/s pCCA (L) 65.50/15.40 cm/s Vert (R) 55.10/ cm/s Vert (L) 62.40/ cm/s ICA/CCA 1.90 ICA/CCA 1.10 Findings Duplex evaluation demonstrates stenosis of the right proximal internal carotid artery in the range of 20-49%. Duplex evaluation demonstrates stenosis of the left proximal internal carotid artery in the range of 20-49%. Duplex evaluation demonstrates >70-99% stenosis of the left Common Carotid Artery. Duplex evaluation demonstrates antegrade flow of the bilateral Vertebral Arteries. Conclusion Duplex evaluation demonstrates stenosis of the right proximal internal carotid artery in the range of 20-49%. Duplex evaluation demonstrates stenosis of the left proximal internal carotid artery in the range of 20-49%. Duplex evaluation demonstrates >70-99% stenosis of the left Common Carotid Artery. Duplex evaluation demonstrates antegrade flow of the bilateral Vertebral Arteries. Electronically signed by : Tariq Castillo MD 10/26/2020 16:32:37
== END ==
PROVIDERS: PCP Internal Medicine Adolescent Medicine; Visit Provider Urology
DX: R42 Dizziness and giddiness (principal)
CPT/HCPCS: 93880

== ENCOUNTER → 2020-11-08 15:32 | Outpatient (CLI) | payer MEDICARE, OTHER, SELFPAY ==
[2020-11-08 16:40] LABS: Blood Urea Nitrogen 14 mg/dl (9-20); Estimated Glomerular Filt Rate 82 ml/min (>60); GFR (African American) 100 ML/MIN (>60)
== END ==
PROVIDERS: Visit Provider Internal Medicine
DX: Z01.818 Encounter for other preprocedural examination (principal)
CPT/HCPCS: 82565; 84520

== ENCOUNTER → 2020-11-10 13:38 | Outpatient (CLI) | payer MEDICARE, OTHER, SELFPAY ==
--- NOTE | 2020-11-10 13:39 | CT_ITS ---
Procedure: CT ANGIO NECK CLINICAL HISTORY: Carotid artery disease, abn CNI MIMI Previous surgery on lt side Abnormal finding COMPARISON: XA CARBILAT CL carotid BI from 03/19/2018 TECHNIQUE: IV Contrast: 100ml Isovue 370 Axial images obtained with sagittal and coronal reformats. All CT scans at the facility use one or more dose reduction, viz: automated exposure control, ma/kV adjustment per patient size (including targeted exams where dose is matched to indication, i.e. head), or iterative reconstruction technique. FINDINGS: Calcific plaque is present involving the aortic arch. The right brachiocephalic artery shows no significant stenosis. Calcific plaque is present in the distal right brachiocephalic region. Right carotid: The proximal aspect of the left common carotid artery shows no significant stenosis. Moderate to severe amount of calcific plaque is present at the right distal common carotid/bulb region causing approximately 50 percent stenosis of the proximal ICA and 90 percent stenosis of the proximal external carotid. Left carotid: Calcific plaque is present at the ostium. There is dense calcific plaque in the mid aspect of the left common carotid artery medially with approximately 40 percent diameter stenosis. There has been prior left carotid endarterectomy with the lumen widely patent. There is some calcific plaque in the mid aspect of the left internal carotid with 30 percent stenosis. Calcific plaque is present within the vertebrals on both sides with severe stenosis involving the left vertebral at C6-C7 level. This stenosis is approximately 80-90 percent. There is a short segment of severe stenosis involving the right vertebral at the C1 level. This area of stenosis is approximately 80 percent. Scattered calcific plaque is present involving the intracranial vessels within the cavernous portion of the carotids as well as the supraclinoid portion of both carotids. There is mild dilatation of the proximal aspect of the right posterior communicating artery at approximately 3 by 1 mm. There is mild dilatation of the proximal left posterior communicating artery as well at 3 x 2 mm consistent with bilateral infundibulum I. no AVM or intracranial enhancing lesion is evident. Small amount fluid is present in the mastoid sinuses on both sides. IMPRESSION: There is diffuse atherosclerotic disease of the carotid and vertebral vessels with resulting 50 percent stenosis of the proximal right ICA, 90 percent stenosis of the proximal right external carotid, 40 percent diameter stenosis involving the mid aspect of the left common carotid and 30 percent stenosis of the mid aspect of the left ICA. There is 80-90 percent stenosis involving the left vertebral to C6-C7 level an 80 percent stenosis involving the right vertebral at the C1 level. Intracranial atherosclerotic changes Prominent proximal aspect of the posterior communicating artery on both sides which is felt to be due to infundibulum I as opposed to aneurysms. Six-month follow-up suggested to confirm stability. Dictated by: Tariq Casitllo MD 11/11/2020 09:58 Tariq Castillo MD in [place] 11/11/2020 09:58
== END ==
PROVIDERS: PCP Internal Medicine Adolescent Medicine; Visit Provider Urology
DX: I65.23 Occlusion and stenosis of bilateral carotid arteries (principal)
CPT/HCPCS: 70498; Q9967

== ENCOUNTER → 2021-04-19 14:20 | Outpatient (CLI) | payer MEDICARE, OTHER, SELFPAY ==
[2021-04-19 15:53] LABS: Alanine Aminotransferase 28 U/L (12-78); Albumin Level 4.5 g/dl (3.5-5.0); Alkaline Phosphatase 60 U/L (38-126); Aspartate Amino Transferase 32 U/L (17-59); Bilirubin,Direct 0.2 mg/dl (0.0-0.4); Bilirubin,Indirect 0.2 mg/dL (0.0-0.9); Bilirubin,Total 0.4 mg/dl (0.2-1.3); Bilirubin,Unconjugated 0.2 mg/dL (0.0-1.1); Chol/HDL Ratio 2.7 (1-3.5); Cholesterol 128 mg/dl (140-200); HDL Cholesterol 47 mg/dl (40-60); Total Protein,Serum 6.8 g/dl (6.3-8.2); Triglycerides 242 mg/dl (30-150); VLDL Cholesterol 48 mg/dL (0-40)
[2021-04-19 16:05] LABS: Direct LDL Cholesterol 66.12 mg/dL (100-129)
== END ==
PROVIDERS: Visit Provider Urology
DX: E78.2 Mixed hyperlipidemia (principal); I10 Essential (primary) hypertension; I25.810 Atherosclerosis of coronary artery bypass graft(s) without angina pectoris; I73.9 Peripheral vascular disease, unspecified; I77.9 Disorder of arteries and arterioles, unspecified; R06.00 Dyspnea, unspecified; Z95.1 Presence of aortocoronary bypass graft
CPT/HCPCS: 36415; 80061; 80076

== ENCOUNTER → 2021-05-10 11:35 | Outpatient (CLI) | payer MEDICARE, OTHER, SELFPAY | PROVIDERS: PCP Internal Medicine Adolescent Medicine; Visit Provider Nurse Practitioner | DX: U07.1 COVID-19 (principal) | CPT/HCPCS: C9803; U0003; U0005 ==

== ENCOUNTER → 2021-07-22 06:45 | Outpatient (CLI) | payer MEDICARE, OTHER, SELFPAY ==
--- NOTE | 2021-07-22 06:57 | CT_ITS ---
FINAL REPORT CLINICAL HISTORY: NICOTINE DEPENDENCE smoker, 1/2 ppd x 55 years. copd, CAD FINDINGS: CTDI vol (mGy): 2.[address] images of the chest were obtained using the low-dose protocol for screening. There has been interval development of several enlarged AP window lymph nodes measuring 18 mm as well as new left hilar adenopathy. On the lung window images, there is mild emphysematous change and scarring. A new, spiculated nodule is seen in the medial left lower lobe measuring 19 mm. There are several right renal masses including an 8 mm mass in the posterior right kidney which does not appear to be a simple cyst. There is mild, nonspecific left adrenal enlargement, favor adenoma. IMPRESSION: Lung RADS category 4 X. findings very worrisome for lung neoplasm with metastatic adenopathy. Recommend PET CT as well as CT-guided FNA. Reviewed, Interpreted and Dictated by Karri Roldan III, MD Transcribed by Rach Sotomayor Authenticated by Karri Roldan III, MD on 07/22/2021 09:18:47 AM [facility]
== END ==
PROVIDERS: PCP Internal Medicine Adolescent Medicine; Visit Provider Internal Medicine Adolescent Medicine
DX: Z87.891 Personal history of nicotine dependence (principal); Z12.2 Encounter for screening for malignant neoplasm of respiratory organs
CPT/HCPCS: 71271

== ENCOUNTER → 2021-08-23 10:10 | Outpatient (POV) | payer MEDICARE, OTHER, SELFPAY | PROVIDERS: Visit Provider Dermatology | DX: Z00.00 Encounter for general adult medical examination without abnormal findings (principal) ==

== ENCOUNTER → 2021-08-24 14:40 | Outpatient (CLI) | payer MEDICARE, OTHER, SELFPAY | PROVIDERS: PCP Internal Medicine Adolescent Medicine; Visit Provider Internal Medicine Pulmonary Disease | DX: Z01.812 Encounter for preprocedural laboratory examination (principal); Z11.52 Encounter for screening for COVID-19 | CPT/HCPCS: C9803; U0003; U0005 ==

== ENCOUNTER 2021-08-26 10:11 | Day surgery (SDC) | payer MEDICARE, OTHER, SELFPAY ==
[2021-08-24 09:47] VITALS: BMI 25.0
--- NOTE | 2021-08-24 09:48 | SUR.PREOP ---
During pre-op phone call pt stated that he was unaware that he needed to stop ASA and plavix 5 days prior to procedure. Pt states last time he took both was on 08/23/21 @ 0700. Made Dr[address] Finch's office aware of this. Criselda states she will speak to Dr. Finch when he comes back from rounds on the floor and call pt back.
[2021-08-26] VITALS (11 sets, daily range): BP systolic 122–177; BP diastolic 62–76; PULSE 68–76; RESP 16–18; TEMP 36.2–43; O2SAT 92–98
--- NOTE | 2021-08-26 11:01 | P.PN_ITS ---
[facility] [place] Anesthesia Checklist - Patient Identification Patient Identification: Arm Band - Structural Data Admitted From: Home Planned Operative Procedure/s: Bronchoscopy with EBUS Consent for Planned Operative Procedure(s) Verified: Yes Verified Documents: Surgical Consent, History and Physical - NPO Status Verified Time NPO: 00:00 - Additional verifications Anesthesia Reactions: No Hx Blood Transfusions: Yes Blood Transfusion Reaction: No - Airway Assessment C-Spine Mobility Assessed: Yes (mp2) TMJ Mobility Assessed: Yes Dentition: Edentulous - Neurological Assessment Level of Consciousness: Awake, Alert - Anesthesia Plan Anesthesia Risk discussed: Yes Anesthesia Plan: Verified ASA Class: III Anesthesia Type: General [facility] [place] History I have reviewed the patient's past medical history: Yes Medical History: Reports:: Chronic Obstructive Pulmonary Disease (COPD), Coronary Artery Disease, Hyperlipidemia, Hypertension, Peripheral Artery Disease Denies:: Cancer, Diabetes Mellitus Type 1, Diabetes Mellitus Type 2, MRSA, Seizures *Have you ever received a pneumonia vaccine?: Yes *Have you received a flu vaccine this season?: Yes Other Medical History: Reports: Anemia, Arthritis. Denies: Blood Transfusion Reaction Anesthesia experience/problems:: nac Laterality Cases: Bilateral: Carpal Tunnel Release Other Surgeries: Yes: Angioplasty, CABG, Cardiac Catheterization, Cardiac Surgery Amputation: No - *Social History Last grade of school completed: Advanced degree Smoking Status: Current every day smoker Tobacco Type: cigarettes # Packs/Day (cigarettes): 1 Alcohol Intake: never Alcohol Intake Frequency:: holidays/special occasions only Substance Use Type: denies use *Occupational Status:: retired Housing: house Household Members: spouse *Travel in the last 8 weeks: None Family Hx:: Coronary Artery Disease, Hyperlipidemia, Hypertension
--- NOTE | 2021-08-26 13:19 | HMH.BRONCH ---
- Procedure: Date: 08/26/21 Patient Date of :: 1945 Procedure Performed:: Bronchoscopy endobronchial ultrasound guided fine-needle aspirate Indications:: Mediastinal and hilar lymphadenopathy Performing Provider:: Lexis Finch MD Referring Provider:: : Curtis Montes MD Sedation:: General anesthesia Procedure:: Endobronchial ultrasound-guided fine-needle aspiration: Including EBUS scope was advanced the ET tube and lymph node surveillance was performed. Patient noted to lymphadenopathy at stations 10 L and neck conglomerate of mass and lymph node at 4L. No other specific lymphadenopathy is noted on lymph node surveillance. EBUS FNA was performed at stations 10 L and 4L. Total of 6 passes were performed at each station samples were sent in CytoLyt for cytological examination. Pathology not at bedside for pulmonary evaluation. Tolerated the procedure well with no immediate complications. F/U clinic in 7 days with the results Findings:: Please see the procedure note Recommendations:: Please see the procedure note Complications:: None Estimated blood obtained (mL): 10
--- NOTE | 2021-08-26 13:22 | P.PN_ITS ---
[facility] Anesthesia Record Part I Intake, IV Amount: 1,200 Estimated blood loss (mL): 0 Urine output (mL): 0 Blood Pressure: 122/65 SaO2: 98 Pulse Rate: 75 Respiratory Rate: 16 Temperature: 97.2 F Patient is:: Drowsy, Stable Stable to PACU at:: 13:20
--- NOTE | 2021-08-29 07:18 | HMH.ANESII ---
[facility] Anesthesia Record Part II Discharge Time: 13:50 Destination: Home PACU nurse assessment reviewed?: Yes Patient Condition:: Good Anesthesia Complications:: None Swallowing reflex intact?: Yes Cyanosis?: No Blood Pressure: 124/62 Pulse Rate: 73 Temperature: 97.2 F Mental Status: Alert & Oriented Pain level:: 0 Nausea and/or vomitting:: None Intake, IV Amount: 0
[2021-08-29 07:19] VITALS: BP 124/62; PULSE 73; TEMP 36.2
== END 2021-08-26 14:34 | disposition home or self-care (01) ==
LOC: OR 10:12
PROVIDERS: PCP Internal Medicine Adolescent Medicine; Visit Provider Internal Medicine Pulmonary Disease
DX: C34.32 Malignant neoplasm of lower lobe, left bronchus or lung (principal); R59.0 Localized enlarged lymph nodes; R91.1 Solitary pulmonary nodule; F17.210 Nicotine dependence, cigarettes, uncomplicated; J44.9 Chronic obstructive pulmonary disease, unspecified; Z95.1 Presence of aortocoronary bypass graft; Z79.02 Long term (current) use of antithrombotics/antiplatelets; I25.10 Atherosclerotic heart disease of native coronary artery without angina pectoris; Z95.5 Presence of coronary angioplasty implant and graft
CPT/HCPCS: 31652; 88173; 88305; 88342; J2405

== ENCOUNTER → 2021-09-01 14:31 | Outpatient (CLI) | payer MEDICARE, OTHER, SELFPAY ==
[2021-09-01 15:57] LABS: Basophils # 0.1 K/mm3 (0-0.2); Basophils % 1.2 % (0.1-2.0); Eosinophils # 0.2 K/mm3 (0.0-0.4); Eosinophils % 1.4 % (0.1-12.0); Hematocrit 36.3 % (42.0-52.0); Hemoglobin 12.1 g/dL (14.1-18.0); Lymphocytes # 1.9 K/mm3 (0.7-4.5); Lymphocytes % 15.7 % (10-50); Mean Corpuscular HGB Conc 33.5 g/dL (31.8-35.4); Mean Corpuscular Hemoglobin 29.6 pg (27.0-31.2); Mean Corpuscular Volume 88.4 fl (80-94); Mean Platelet Volume 7.4 fl (7.4-10.4); Monocytes # 0.8 K/mm3 (0.1-1.0); Monocytes % 6.6 % (1.7-9.3); Neutrophils # 8.9 K/mm3 (1.8-7.8); Neutrophils % 75.2 % (37.0-80.0); Platelet Count 413 K/mm3 (142-424); Red Cell Distribution Width 14.8 % (11.5-17.5); White Blood Count 11.8 K/mm3 (4.8-10.8)
[2021-09-01 16:41] LABS: Alanine Aminotransferase 26 U/L (12-78); Albumin Level 4.2 g/dl (3.5-5.0); Albumin/Globulin Ratio 1.8 (1.1-1.8); Alkaline Phosphatase 78 U/L (38-126); Anion Gap 13.2 mEq/L (5-15); Aspartate Amino Transferase 25 U/L (17-59); Bilirubin,Total 0.2 mg/dl (0.2-1.3); Blood Urea Nitrogen 13 mg/dl (9-20); Calcium 9.7 mg/dl (8.4-10.2); Carbon Dioxide 31 mmol/L (22.0-30.0); Chloride 95 mmol/L (98-107); Estimated Glomerular Filt Rate 94 ml/min (>60); GFR (African American) 114 ML/MIN (>60); Globulin 2.3 g/dL (1.3-3.2); Glucose 93 mg/dl (74-100); Potassium 4.2 mmoL/L (3.5-5.1); Sodium 135 mmol/L (136-145); Total Protein,Serum 6.5 g/dl (6.3-8.2)
== END ==
PROVIDERS: Visit Provider Internal Medicine Medical Oncology
DX: C34.92 Malignant neoplasm of unspecified part of left bronchus or lung (principal)
CPT/HCPCS: 36415; 80053; 85025

== ENCOUNTER → 2021-09-03 10:24 | Outpatient (CLI) | payer MEDICARE, OTHER, SELFPAY ==
--- NOTE | 2021-09-03 10:32 | MR_ITS ---
PROCEDURE INFORMATION: Exam: MR Head Without and With Contrast Exam date and time: 09/03/2021 10:41 AM Age: 76 years old Clinical indication: Lung cancer staging. TECHNIQUE: Imaging protocol: MR of the head without and with intravenous contrast. Contrast material: PROHANCE; Contrast volume: 14 ml; Contrast route: IV; COMPARISON: BRAINWW MR head/brain wo/w con 06/22/2017 11:45 AM FINDINGS: Brain: There are occasional nonspecific foci of high signal abnormality in the bagley radiata and centrum semiovale. These are best seen on the flair images. These foci may represent areas of gliosis, demyelination, and/or chronic ischemic change. There are chronic brainstem ischemic changes. Cerebral ventricles: Normal. No ventriculomegaly. Bones/joints: Unremarkable. Paranasal sinuses: Normal as visualized. No acute sinusitis. Mastoid air cells: There is moderate bilateral mastoid disease. Orbital cavities: Unremarkable. Soft tissues: Unremarkable. Other findings: There is no abnormal enhancement. IMPRESSION: 1. There are occasional nonspecific foci of high signal abnormality in the bagley radiata and centrum semiovale. These are best seen on the flair images. These foci may represent areas of gliosis, demyelination, and/or chronic ischemic change. No acute infarct is identified. 2. There are chronic brainstem ischemic changes. 3. There is moderate bilateral mastoid disease. 4. No intracranial masses or abnormal enhancement to suggest metastatic disease.
== END ==
PROVIDERS: PCP Internal Medicine Adolescent Medicine; Visit Provider Internal Medicine Medical Oncology
DX: C34.92 Malignant neoplasm of unspecified part of left bronchus or lung (principal); Z03.89 Encounter for observation for other suspected diseases and conditions ruled out
CPT/HCPCS: 70553; A9576

== ENCOUNTER 2021-09-06 08:56 | Outpatient (CLI) | payer MEDICARE, OTHER, SELFPAY ==
[2021-09-06] VITALS (13 sets, daily range): BP systolic 119–163; BP diastolic 43–65; PULSE 56–83; RESP 18; TEMP 36.4; O2SAT 97–98; BMI 24.7
[2021-09-06 09:47] LABS: Magnesium 1.7 mg/dl (1.6-2.3)
== END 2021-09-06 16:25 | disposition home or self-care (01) ==
LOC: INF 08:57
PROVIDERS: PCP Internal Medicine Adolescent Medicine; Visit Provider Internal Medicine Medical Oncology
DX: C34.92 Malignant neoplasm of unspecified part of left bronchus or lung (principal); Z51.11 Encounter for antineoplastic chemotherapy
CPT/HCPCS: 83735; 96413; 96415; 96417; J2469; J8501; J9060; J9181

== ENCOUNTER 2021-09-07 09:00 | Outpatient (CLI) | payer MEDICARE, OTHER, SELFPAY ==
[2021-09-07 09:10] VITALS: BP 135/53; PULSE 84; RESP 18; TEMP 36.4; O2SAT 98
[2021-09-07 09:50] VITALS: BP 138/51; PULSE 88; RESP 18; O2SAT 98
[2021-09-07 10:20] VITALS: BP 144/54; PULSE 82; RESP 18; O2SAT 97
[2021-09-07 10:50] VITALS: BP 152/50; PULSE 84; RESP 18; O2SAT 98
[2021-09-07 11:35] VITALS: BP 135/56; PULSE 87; RESP 18; O2SAT 97
== END 2021-09-07 11:35 | disposition home or self-care (01) ==
LOC: INF 09:01
PROVIDERS: PCP Internal Medicine Adolescent Medicine; Visit Provider Internal Medicine Medical Oncology
DX: Z51.11 Encounter for antineoplastic chemotherapy (principal); C34.92 Malignant neoplasm of unspecified part of left bronchus or lung
CPT/HCPCS: 96415; J9181

== ENCOUNTER 2021-09-08 08:51 | Outpatient (CLI) | payer MEDICARE, OTHER, SELFPAY ==
[2021-09-08] VITALS (8 sets, daily range): BP systolic 121–159; BP diastolic 55–75; PULSE 62–73; RESP 16; O2SAT 96
--- NOTE | 2021-09-08 13:37 | DIET.NUTRFU ---
contacted patient to review any dietary concerns. He had no issues. Denied any nausea or wt loss. Provided contact information if anything arises.
== END 2021-09-08 11:35 | disposition home or self-care (01) ==
LOC: INF 08:51
PROVIDERS: PCP Internal Medicine Adolescent Medicine; Visit Provider Internal Medicine Medical Oncology
DX: Z51.11 Encounter for antineoplastic chemotherapy (principal); C34.92 Malignant neoplasm of unspecified part of left bronchus or lung
CPT/HCPCS: 96413; 96415; J9181

== ENCOUNTER → 2021-09-22 13:57 | Outpatient (CLI) | payer MEDICARE, OTHER, SELFPAY ==
[2021-09-22 14:03] VITALS: BMI 24.8
--- NOTE | 2021-09-22 14:06 | PC.NURSE ---
1405 CBC/CMP labs collected per L AC x1 stick per Barak Valverde RN. Patient here for appointment with Dr. Vaughan.
[2021-09-22 14:18] LABS: Basophils % 1.6 % (0.1-2.0); Chloride 99 mmol/L (98-107); Eosinophils # 0.1 K/mm3 (0.0-0.4); Eosinophils % 6.2 % (0.1-12.0); Hematocrit 30.6 % (42.0-52.0); Hemoglobin 10.2 g/dL (14.1-18.0); Lymphocytes # 1.1 K/mm3 (0.7-4.5); Mean Corpuscular HGB Conc 33.3 g/dL (31.8-35.4); Mean Corpuscular Hemoglobin 29.3 pg (27.0-31.2); Mean Corpuscular Volume 88.2 fl (80-94); Mean Platelet Volume 8.1 fl (7.4-10.4); Monocytes # 0.3 K/mm3 (0.1-1.0); Monocytes % 16.1 % (1.7-9.3); Neutrophils # 0.1 K/mm3 (1.8-7.8); Platelet Count 327 K/mm3 (142-424); Red Blood Count 3.47 M/mm3 (4.60-6.20); Red Cell Distribution Width 17.7 % (11.5-17.5); Sodium 133 mmol/L (136-145); White Blood Count 1.6 K/mm3 (4.8-10.8)
[2021-09-22 14:19] LABS: Potassium 3.9 mmoL/L (3.5-5.1)
[2021-09-22 14:21] LABS: Alanine Aminotransferase 32 U/L (12-78); Alkaline Phosphatase 78 U/L (38-126); Aspartate Amino Transferase 32 U/L (17-59); Blood Urea Nitrogen 10 mg/dl (9-20); Creatinine Clearance Estimated 63 mL/min (50-200); Estimated Glomerular Filt Rate 94 ml/min (>60); GFR (African American) 114 ML/MIN (>60)
[2021-09-22 14:22] LABS: Albumin Level 4.2 g/dl (3.5-5.0); Albumin/Globulin Ratio 1.7 (1.1-1.8); Anion Gap 8.9 mEq/L (5-15); Bilirubin,Total 0.1 mg/dl (0.2-1.3); Calcium 9.2 mg/dl (8.4-10.2); Carbon Dioxide 29 mmol/L (22.0-30.0); Globulin 2.5 g/dL (1.3-3.2); Glucose 123 mg/dl (74-100); Total Protein,Serum 6.7 g/dl (6.3-8.2)
[2021-09-22 14:23] LABS: Neutrophils % 5.1 % (37.0-80.0)
[2021-09-22 14:24] LABS: MANUAL DIFFERENTIAL MANUAL DIFFERENTIAL (MANUAL DIFF)
[2021-09-22 17:05] LABS: Anisocytosis 1+; Eosinophils % 2 % (0-3); Hypochromasia 2+; Lymphocytes % 28 % (10-50); Microcytosis 1+; Monocytes % 7 % (2-9); Neutrophils % 63 % (42-76); Ovalocytes 1+; Platelet Estimate Normal; Total Cells Counted 100
== END ==
PROVIDERS: PCP Internal Medicine Adolescent Medicine; Visit Provider Internal Medicine Medical Oncology
DX: C34.92 Malignant neoplasm of unspecified part of left bronchus or lung (principal)
CPT/HCPCS: 36415; 80053; 85007; 85025

== ENCOUNTER 2021-09-27 10:17 | Outpatient (CLI) | payer MEDICARE, OTHER, SELFPAY ==
[2021-09-27] VITALS (13 sets, daily range): BP systolic 145–180; BP diastolic 60–94; PULSE 66–78; RESP 20; TEMP 36.7–36.9; O2SAT 95; BMI 25.3
[2021-09-27 10:45] LABS: Basophils # 0.1 K/mm3 (0-0.2); Basophils % 1.2 % (0.1-2.0); Eosinophils # 0.1 K/mm3 (0.0-0.4); Eosinophils % 1.2 % (0.1-12.0); Hematocrit 31.5 % (42.0-52.0); Hemoglobin 10.5 g/dL (14.1-18.0); Lymphocytes # 1.9 K/mm3 (0.7-4.5); Lymphocytes % 22.5 % (10-50); Mean Corpuscular HGB Conc 33.4 g/dL (31.8-35.4); Mean Corpuscular Hemoglobin 29.2 pg (27.0-31.2); Mean Corpuscular Volume 87.4 fl (80-94); Mean Platelet Volume 7.6 fl (7.4-10.4); Monocytes # 0.9 K/mm3 (0.1-1.0); Monocytes % 10.6 % (1.7-9.3); Neutrophils # 5.3 K/mm3 (1.8-7.8); Neutrophils % 64.5 % (37.0-80.0); Platelet Count 521 K/mm3 (142-424); Red Cell Distribution Width 18.3 % (11.5-17.5); White Blood Count 8.2 K/mm3 (4.8-10.8)
[2021-09-27 10:47] LABS: Chloride 96 mmol/L (98-107); Sodium 131 mmol/L (136-145)
[2021-09-27 10:48] LABS: Potassium 4.4 mmoL/L (3.5-5.1)
[2021-09-27 10:50] LABS: Alanine Aminotransferase 38 U/L (12-78); Albumin Level 4.4 g/dl (3.5-5.0); Albumin/Globulin Ratio 1.5 (1.1-1.8); Alkaline Phosphatase 77 U/L (38-126); Anion Gap 11.4 mEq/L (5-15); Aspartate Amino Transferase 47 U/L (17-59); Bilirubin,Total 0.4 mg/dl (0.2-1.3); Blood Urea Nitrogen 13 mg/dl (9-20); Carbon Dioxide 28 mmol/L (22.0-30.0); Creatinine Clearance Estimated 64 mL/min (50-200); Estimated Glomerular Filt Rate 110 ml/min (>60); GFR (African American) 133 ML/MIN (>60); Globulin 2.9 g/dL (1.3-3.2); Total Protein,Serum 7.3 g/dl (6.3-8.2)
[2021-09-27 10:51] LABS: Calcium 9.4 mg/dl (8.4-10.2); Glucose 134 mg/dl (74-100)
== END 2021-09-27 17:34 | disposition home or self-care (01) ==
LOC: INF 10:17
PROVIDERS: Visit Provider Internal Medicine Medical Oncology
DX: Z51.11 Encounter for antineoplastic chemotherapy (principal); C34.90 Malignant neoplasm of unspecified part of unspecified bronchus or lung
CPT/HCPCS: 80053; 85025; 96413; 96415; 96417; J2469; J9060; J9181

== ENCOUNTER 2021-09-28 10:13 | Outpatient (CLI) | payer MEDICARE, OTHER, SELFPAY ==
[2021-09-28 11:35] VITALS: BP 160/59; PULSE 75; RESP 18; TEMP 36.4; O2SAT 98
[2021-09-28 12:00] VITALS: BP 150/63; PULSE 74; RESP 18; O2SAT 99
[2021-09-28 12:30] VITALS: BP 167/66; PULSE 76; RESP 18; O2SAT 99
[2021-09-28 13:00] VITALS: BP 158/66; PULSE 70; RESP 17; O2SAT 98
[2021-09-28 13:05] VITALS: BP 155/61; PULSE 70; RESP 19; O2SAT 97
== END 2021-09-28 13:10 | disposition home or self-care (01) ==
LOC: INF 10:13
PROVIDERS: PCP Internal Medicine Adolescent Medicine; Visit Provider Internal Medicine Medical Oncology
DX: Z51.11 Encounter for antineoplastic chemotherapy (principal); C34.90 Malignant neoplasm of unspecified part of unspecified bronchus or lung
CPT/HCPCS: 96413; 96415; J9181

== ENCOUNTER 2021-09-29 09:41 | Outpatient (CLI) | payer MEDICARE, OTHER, SELFPAY ==
[2021-09-29] VITALS (8 sets, daily range): BP systolic 159–180; BP diastolic 56–72; PULSE 66–72; RESP 16; O2SAT 97
--- NOTE | 2021-10-05 10:50 | DIET.NUTRFU ---
Rd consulted d/t receiving chemo tx. Called via phone, no concerns. Eating habit about the same as before. i large meal and a bunch of snacks. Wt stable. Provider contact information for any future concerns
== END 2021-09-29 12:20 | disposition home or self-care (01) ==
LOC: INF 09:42
PROVIDERS: PCP Internal Medicine Adolescent Medicine; Visit Provider Internal Medicine Medical Oncology
DX: Z51.11 Encounter for antineoplastic chemotherapy (principal); C34.92 Malignant neoplasm of unspecified part of left bronchus or lung
CPT/HCPCS: 96413; 96415; J9181

== ENCOUNTER 2021-10-07 15:00 | Outpatient (RCR) | payer MEDICARE, OTHER, SELFPAY | END 2021-10-07 15:05 | disposition home or self-care (01) | LOC: PT 15:00 | PROVIDERS: PCP Internal Medicine Adolescent Medicine | DX: R53.1 Weakness (principal) | CPT/HCPCS: 97110; 97163 ==

== ENCOUNTER 2021-10-13 13:28 | Outpatient (CLI) | payer MEDICARE, OTHER, SELFPAY ==
[2021-10-13 13:35] VITALS: BMI 25.2
[2021-10-13 13:57] LABS: Basophils % 0.8 % (0.1-2.0); Eosinophils % 0.3 % (0.1-12.0); Hematocrit 22.6 % (42.0-52.0); Hemoglobin 7.6 g/dL (14.1-18.0); Lymphocytes # 0.5 K/mm3 (0.7-4.5); Lymphocytes % 68.6 % (10-50); Mean Corpuscular HGB Conc 33.5 g/dL (31.8-35.4); Mean Corpuscular Hemoglobin 28.6 pg (27.0-31.2); Mean Corpuscular Volume 85.4 fl (80-94); Mean Platelet Volume 7.7 fl (7.4-10.4); Monocytes # 0.1 K/mm3 (0.1-1.0); Monocytes % 18.6 % (1.7-9.3); Neutrophils # 0.1 K/mm3 (1.8-7.8); Platelet Count 224 K/mm3 (142-424); Red Blood Count 2.65 M/mm3 (4.60-6.20); Red Cell Distribution Width 20.7 % (11.5-17.5)
[2021-10-13 13:58] LABS: Neutrophils % 11.8 % (37.0-80.0)
[2021-10-13 14:01] LABS: Alanine Aminotransferase 22 U/L (12-78); Albumin Level 3.6 g/dl (3.5-5.0); Albumin/Globulin Ratio 1.4 (1.1-1.8); Alkaline Phosphatase 75 U/L (38-126); Anion Gap 10.6 mEq/L (5-15); Aspartate Amino Transferase 24 U/L (17-59); Bilirubin,Total < 0.1 mg/dl (0.2-1.3); Blood Urea Nitrogen 14 mg/dl (9-20); Calcium 8.8 mg/dl (8.4-10.2); Carbon Dioxide 28 mmol/L (22.0-30.0); Chloride 100 mmol/L (98-107); Creatinine Clearance Estimated 64 mL/min (50-200); Estimated Glomerular Filt Rate 94 ml/min (>60); GFR (African American) 114 ML/MIN (>60); Globulin 2.5 g/dL (1.3-3.2); Glucose 158 mg/dl (74-100); Potassium 3.6 mmoL/L (3.5-5.1); Sodium 135 mmol/L (136-145); Total Protein,Serum 6.1 g/dl (6.3-8.2)
[2021-10-13 14:07] LABS: White Blood Count 0.7 K/mm3 (4.8-10.8)
[2021-10-13 14:09] LABS: MANUAL DIFFERENTIAL MANUAL DIFFERENTIAL (MANUAL DIFF)
--- NOTE | 2021-10-13 14:32 | PC.NURSE ---
Kalina Miranda called RN at 1358 to report wbc-0.7. RN repeated and verified pt name, , and lab value. Result called to Dr. Lezama in specialty clinic-pt is there for appt. No new orders noted at this time.
[2021-10-13 15:00] LABS: Corrected White Blood Count 0.7 K/mm3 (4.8-10.8); Eosinophils % 1 % (0-3); Lymphocytes % 80 % (10-50); Monocytes % 10 % (2-9); Neutrophils % 7 % (42-76); Nucleated Red Blood Cells 4; Total Cells Counted 100
[2021-10-13 15:02] LABS: Acanthocytes 1+; Anisocytosis 1+; Ovalocytes 1+
[2021-10-13 15:03] LABS: Giant Platelets 1+; Platelet Estimate Normal
== END 2021-10-13 13:40 | disposition home or self-care (01) ==
LOC: INF 13:29
PROVIDERS: PCP Internal Medicine Adolescent Medicine; Visit Provider Internal Medicine Medical Oncology
DX: C34.90 Malignant neoplasm of unspecified part of unspecified bronchus or lung (principal)
CPT/HCPCS: 36415; 80053; 85007; 85025

== ENCOUNTER 2021-10-18 09:47 | Outpatient (CLI) | payer MEDICARE, OTHER, SELFPAY ==
[2021-10-18] VITALS (10 sets, daily range): BP systolic 131–195; BP diastolic 55–97; PULSE 60–87; RESP 18; TEMP 35.6–35.7; O2SAT 97; BMI 25.2
--- NOTE | 2021-10-18 10:10 | PC.NURSE ---
1005-notified with pt concern for gout;new orders to draw uric acid with repeat labs.
[2021-10-18 10:21] LABS: Basophils % 0.9 % (0.1-2.0); Eosinophils % 0.3 % (0.1-12.0); Hematocrit 26.4 % (42.0-52.0); Hemoglobin 9.1 g/dL (14.1-18.0); Lymphocytes # 0.8 K/mm3 (0.7-4.5); Lymphocytes % 23.8 % (10-50); Mean Corpuscular HGB Conc 34.4 g/dL (31.8-35.4); Mean Corpuscular Hemoglobin 30.2 pg (27.0-31.2); Mean Corpuscular Volume 87.7 fl (80-94); Mean Platelet Volume 6.6 fl (7.4-10.4); Monocytes # 0.5 K/mm3 (0.1-1.0); Monocytes % 15.6 % (1.7-9.3); Neutrophils # 1.9 K/mm3 (1.8-7.8); Neutrophils % 59.4 % (37.0-80.0); Platelet Count 461 K/mm3 (142-424); Red Blood Count 3.01 M/mm3 (4.60-6.20); Red Cell Distribution Width 22.6 % (11.5-17.5); White Blood Count 3.2 K/mm3 (4.8-10.8)
[2021-10-18 10:25] LABS: Chloride 103 mmol/L (98-107); Potassium 4.1 mmoL/L (3.5-5.1); Sodium 138 mmol/L (136-145)
[2021-10-18 10:28] LABS: Alanine Aminotransferase 21 U/L (12-78); Albumin Level 4.3 g/dl (3.5-5.0); Albumin/Globulin Ratio 1.5 (1.1-1.8); Alkaline Phosphatase 94 U/L (38-126); Anion Gap 10.1 mEq/L (5-15); Aspartate Amino Transferase 32 U/L (17-59); Bilirubin,Total 0.4 mg/dl (0.2-1.3); Blood Urea Nitrogen 12 mg/dl (9-20); Calcium 9.4 mg/dl (8.4-10.2); Carbon Dioxide 29 mmol/L (22.0-30.0); Creatinine Clearance Estimated 64 mL/min (50-200); Estimated Glomerular Filt Rate 94 ml/min (>60); GFR (African American) 114 ML/MIN (>60); Globulin 2.8 g/dL (1.3-3.2); Glucose 107 mg/dl (74-100); Total Protein,Serum 7.1 g/dl (6.3-8.2)
[2021-10-18 10:56] LABS: Uric Acid 3.7 mg/dl (3.5-8.5)
--- NOTE | 2021-10-18 11:10 | PC.NURSE ---
1110-notified with lab results and questioning about pt's right 4 th toes redness and sweelling with small cut; ok to proceed with chemo as long as wbc is normal, pt not running a fever and pt to see pcp this week.
--- NOTE | 2021-10-18 11:45 | PC.NURSE ---
1115-called to get an appointment with 's office;for pt to been seen about right foot; pt to see 10/19/21 at 1145.
== END 2021-10-18 14:35 | disposition home or self-care (01) ==
LOC: INF 09:48
PROVIDERS: PCP Internal Medicine Adolescent Medicine; Visit Provider Internal Medicine Medical Oncology
DX: Z51.11 Encounter for antineoplastic chemotherapy (principal); C34.90 Malignant neoplasm of unspecified part of unspecified bronchus or lung
CPT/HCPCS: 80053; 84550; 85025; 96413; 96415; 96417; J2469; J8501; J9045; J9181

== ENCOUNTER 2021-10-19 09:28 | Outpatient (CLI) | payer MEDICARE, OTHER, SELFPAY ==
[2021-10-19 10:15] VITALS: BP 142/98; PULSE 88; RESP 18; TEMP 36.1; O2SAT 97
[2021-10-19 10:30] VITALS: BP 131/59; PULSE 81; RESP 18
[2021-10-19 11:00] VITALS: BP 126/53; PULSE 79; RESP 18
[2021-10-19 11:30] VITALS: RESP 18
[2021-10-19 11:40] VITALS: BP 142/76; PULSE 81; RESP 18
== END 2021-10-19 11:40 | disposition home or self-care (01) ==
LOC: INF 09:30
PROVIDERS: PCP Internal Medicine Adolescent Medicine; Visit Provider Internal Medicine Medical Oncology
DX: Z51.11 Encounter for antineoplastic chemotherapy (principal); C34.92 Malignant neoplasm of unspecified part of left bronchus or lung
CPT/HCPCS: 96413; 96415; J9181

== ENCOUNTER 2021-10-20 09:43 | Outpatient (CLI) | payer MEDICARE, OTHER, SELFPAY ==
[2021-10-20 10:27] VITALS: BP 148/53; PULSE 81; RESP 18; TEMP 36.3; O2SAT 100
[2021-10-20 10:45] VITALS: BP 132/49; PULSE 62; RESP 18
[2021-10-20 11:00] VITALS: BP 127/46; PULSE 64; RESP 18
[2021-10-20 11:15] VITALS: BP 141/48; PULSE 66; RESP 18
[2021-10-20 11:30] VITALS: BP 142/49; PULSE 63; RESP 18
[2021-10-20 12:00] VITALS: BP 145/50; PULSE 63; RESP 18
== END 2021-10-20 12:00 | disposition home or self-care (01) ==
LOC: INF 09:43
PROVIDERS: PCP Internal Medicine Adolescent Medicine; Visit Provider Internal Medicine Medical Oncology
DX: Z51.11 Encounter for antineoplastic chemotherapy (principal); C34.90 Malignant neoplasm of unspecified part of unspecified bronchus or lung; Z45.2 Encounter for adjustment and management of vascular access device
CPT/HCPCS: 96413; 96415; J9181

== ENCOUNTER → 2021-10-25 10:46 | Outpatient (CLI) | payer MEDICARE, OTHER, SELFPAY ==
--- NOTE | 2021-10-25 10:47 | US_ITS ---
FINAL REPORT CLINICAL HISTORY: abdominal bruit; aaa screening FINDINGS: ULTRASOUND AORTA Limited sonographic images were obtained of the abdomen to evaluate the abdominal aorta and iliac vessels. The abdominal aorta measures up to 2.2 cm in greatest dimensions. The iliac vessels are within normal limits. IMPRESSION: No evidence of abdominal aortic aneurysm. Reviewed, Interpreted and Dictated by Jakub Jansen MD Transcribed by Mitchel Payne Authenticated and [facility]
--- NOTE | 2021-10-25 11:25 | CA_ITS ---
APPROVED REPORT EXAM: Comprehensive 2D, Doppler, and color-flow Echocardiogram Operating System Designer: Chastity Contreras RT(R) Ht: 5 ft 6 in Wt: 155lbs BSA: 1.79 BP: 101/62 mmHg Indications: COPD, Murmur, smoker, fatigue, HTN, hyperlipidemia, AAA, murmur, CAD, PAD, CABG, Small cell lung CA, undergoing chemo and radiation currently 2D Dimensions LVOT 2.02 cm (M/F) 1.5-2.5 LVEF (Ram's) 51.50 % M: 52 - 72 LV Volume 115.10 mL M: 62 - 150 LV Volume Index 64.30 mL/m2 M: 34 - 74 LA Volume 37.00 mL LA Volume Index 20.67 mL/m2 (M/F) 16-34 M-Mode Dimensions RVDd 2.17 cm (0.9-2.6) LA Diam 2.74 cm (1.9-4.0) LVDd 5.47 cm (3.5-5.7) Ao Diam 2.34 cm (2.0-3.7) LVDs 4.14 cm (3.5-5.7) IVSd 1.04 cm (0.6-1.1) PWd 1.25 cm (0.6-1.1) EF (Teich) 47.90% FS 24.30% EDV (Teich) 145.60 mL ESV (Teich) 75.90 mL LV Diastology E Decel Time 333.00 (160-240 msec) E/A Ratio 0.61 MED E' 5.00 (< 7 cm/sec) E'/MED E' Ratio 14.76 (>14) LAT E' 7.60 (<10 cm/sec) E/LAT E' Ratio 9.71 (>14) Aortic Valve LVOT Max 106.00 (70-110 cm/s) LVOT VTI 21.90 cm AoV Peak Moises. 270.00 (50-130 cm/s) AO Peak GR. 29.50 mmHg AO Mean GR. 14.40 (<5 mmHg) AO VTI 52.53 (18-25 cm) RELL (VTI) 1.34 (2.5-4.5 cm2) Mitral Valve MV A Velocity 121.00 (40-130 cm/s) E/A Ratio 0.61 MV Decel. Time 333.00 (160-240 ms) Left Ventricle Left atrium is mildly enlarged, left ventricle is normal size, mild concentric left ventricular hypertrophy, estimated ejection fraction 55% with no regional wall motion abnormality, grade 1 diastolic dysfunction seen without tissue Doppler evidence of reduced left atrial pressure. Right Ventricle Right atrium and right ventricle mildly enlarged with normal contractility. Aortic Valve Aortic valve is thickened and calcified mean gradient across aortic valve is 13 mmHg, valve area is 1.5 cm appearance mild aortic stenosis, there is no significant aortic insufficiency seen. Mitral Valve Mitral valve has mitral calcification, leaflets are minimally thickened, there is no mitral stenosis, there is mild mitral regurgitation. Tricuspid Valve Tricuspid valve grossly normal, there is mild tricuspid regurgitation, tricuspid regurgitation jet velocity is inadequate for calculation of the right ventricular systolic pressure. Pulmonic Valve Pulmonic valve is poorly visualized. Great Vessels Aortic root is normal size. Inferior vena cava is poorly visualized. Pericardium No significant pericardial effusion noted. Conclusion 1. Mild biatrial enlargement, normal left ventricular size, mild concentric left ventricular hypertrophy, estimated ejection [id number]% with no regional wall motion abnormality, grade 1 diastolic dysfunction seen without tissue Doppler evidence of raise left atrial pressure. 2. Thickened and calcified aortic valve with mild aortic stenosis, there is no significant aortic insufficiency. 3. Mild mitral and tricuspid regurgitation. 4. No significant pericardial effusion noted 5. Inferior vena cava is poorly visualized. Electronically signed by : Sean Nicole MD 10/25/2021 19:21:55
== END ==
PROVIDERS: PCP Internal Medicine Adolescent Medicine; Visit Provider Nurse Practitioner Family
DX: E78.2 Mixed hyperlipidemia (principal); F17.200 Nicotine dependence, unspecified, uncomplicated; I10 Essential (primary) hypertension; I25.810 Atherosclerosis of coronary artery bypass graft(s) without angina pectoris; I73.9 Peripheral vascular disease, unspecified; I77.9 Disorder of arteries and arterioles, unspecified; R01.1 Cardiac murmur, unspecified; R09.89 Other specified symptoms and signs involving the circulatory and respiratory systems; Z95.1 Presence of aortocoronary bypass graft
CPT/HCPCS: 76770; 93306

== ENCOUNTER 2021-10-26 09:40 | Outpatient (CLI) | payer MEDICARE, OTHER, SELFPAY ==
[2021-10-26 09:45] VITALS: BMI 25.8
[2021-10-26 10:21] LABS: Basophils % 1.1 % (0.1-2.0); Eosinophils # 0.1 K/mm3 (0.0-0.4); Eosinophils % 1.2 % (0.1-12.0); Hemoglobin 9.1 g/dL (14.1-18.0); Lymphocytes # 0.4 K/mm3 (0.7-4.5); Lymphocytes % 10.1 % (10-50); Mean Corpuscular HGB Conc 31.4 g/dL (31.8-35.4); Mean Corpuscular Hemoglobin 29.6 pg (27.0-31.2); Mean Corpuscular Volume 94.3 fl (80-94); Mean Platelet Volume 8.1 fl (7.4-10.4); Monocytes # 0.1 K/mm3 (0.1-1.0); Monocytes % 1.4 % (1.7-9.3); Neutrophils # 3.5 K/mm3 (1.8-7.8); Neutrophils % 86.3 % (37.0-80.0); Platelet Count 334 K/mm3 (142-424); Red Blood Count 3.08 M/mm3 (4.60-6.20); Red Cell Distribution Width 23.1 % (11.5-17.5); White Blood Count 4.1 K/mm3 (4.8-10.8)
[2021-10-26 10:24] LABS: MANUAL DIFFERENTIAL MANUAL DIFFERENTIAL (MANUAL DIFF)
[2021-10-26 10:29] LABS: Alanine Aminotransferase 27 U/L (12-78); Albumin Level 4.4 g/dl (3.5-5.0); Albumin/Globulin Ratio 1.7 (1.1-1.8); Alkaline Phosphatase 69 U/L (38-126); Aspartate Amino Transferase 45 U/L (17-59); Bilirubin,Total 0.8 mg/dl (0.2-1.3); Blood Urea Nitrogen 38 mg/dl (9-20); Calcium 9.5 mg/dl (8.4-10.2); Carbon Dioxide 22 mmol/L (22.0-30.0); Chloride 103 mmol/L (98-107); Creatinine Clearance Estimated 60 mL/min (50-200); Estimated Glomerular Filt Rate 65 ml/min (>60); GFR (African American) 79 ML/MIN (>60); Globulin 2.6 g/dL (1.3-3.2); Glucose 86 mg/dl (74-100); Sodium 134 mmol/L (136-145)
[2021-10-26 10:49] LABS: Lymphocytes % 10 % (10-50); Monocytes % 3 % (2-9); Neutrophils % 87 % (42-76); Platelet Estimate Normal; RBC Morphology Normal; Total Cells Counted 100
[2021-10-26 11:00] VITALS: BP 124/51; PULSE 67; RESP 18; O2SAT 99
[2021-10-26 12:05] VITALS: BP 145/55; PULSE 63; RESP 18; O2SAT 98
[2021-10-26 15:17] LABS: Adenovirus F 40/41, stool Not Detected (NotDetected); Astrovirus Not Detected (NotDetected); Campylobacter Not Detected (NotDetected); Clostridium Difficile A/B, PCR Not Detected (NotDetected); Cryptosporidium Not Detected (NotDetected); Cyclospora Cayetanesis Not Detected (NotDetected); Entamoeba histolytica Not Detected (NotDetected); Enteroaggregative E coli Not Detected (NotDetected); Enteropathogenic E coli Not Detected (NotDetected); Enterotoxigenic E coli Not Detected (NotDetected); Giardia lamblia Not Detected (NotDetected); Norovirus Not Detected (NotDetected); Plesimonas Shigalloides, PCR Not Detected (NotDetected); Rotavirus A Not Detected (NotDetected); Salmonella, PCR Not Detected (NotDetected); Sapovirus Not Detected (NotDetected); Shiga-like toxin E coli Not Detected (NotDetected); Shigella Enterovasive E coli Not Detected (NotDetected); Vibrio Cholerae Not Detected (NotDetected); Vibrio, PCR Not Detected (NotDetected); Yersinia Entercolitica, PCR Not Detected (NotDetected)
== END 2021-10-26 12:05 | disposition home or self-care (01) ==
LOC: INF 09:41
PROVIDERS: PCP Internal Medicine Adolescent Medicine; Visit Provider Internal Medicine Medical Oncology
DX: C34.90 Malignant neoplasm of unspecified part of unspecified bronchus or lung (principal); R19.7 Diarrhea, unspecified; E86.0 Dehydration
CPT/HCPCS: 80053; 85007; 85025; 87506; 96360

== ENCOUNTER 2021-11-03 13:06 | Outpatient (CLI) | payer MEDICARE, OTHER, SELFPAY ==
[2021-11-03 13:10] VITALS: BMI 25.2
--- NOTE | 2021-11-03 13:15 | PC.NURSE ---
pt here for venipuncture to collect blood for labs as ordered per md. venipuncture performed per hunter shanks rn to rt ac, blood obtained and specimen sent to lab for analysis. pt to attend md appt in clinic and return next week for planned chemo tx.
[2021-11-03 13:30] LABS: Basophils % 0.4 % (0.1-2.0); Eosinophils % 6.9 % (0.1-12.0); Lymphocytes # 0.3 K/mm3 (0.7-4.5); Lymphocytes % 57.2 % (10-50); Mean Corpuscular Hemoglobin 29.8 pg (27.0-31.2); Mean Corpuscular Volume 87.7 fl (80-94); Mean Platelet Volume 7.7 fl (7.4-10.4); Monocytes # 0.1 K/mm3 (0.1-1.0); Neutrophils # 0.1 K/mm3 (1.8-7.8); Neutrophils % 24.5 % (37.0-80.0); Red Blood Count 2.32 M/mm3 (4.60-6.20); Red Cell Distribution Width 22.9 % (11.5-17.5)
[2021-11-03 13:35] LABS: Alanine Aminotransferase 23 U/L (12-78); Albumin Level 4.1 g/dl (3.5-5.0); Albumin/Globulin Ratio 1.6 (1.1-1.8); Alkaline Phosphatase 79 U/L (38-126); Anion Gap 11.7 mEq/L (5-15); Aspartate Amino Transferase 25 U/L (17-59); Blood Urea Nitrogen 17 mg/dl (9-20); Calcium 9.4 mg/dl (8.4-10.2); Carbon Dioxide 29 mmol/L (22.0-30.0); Chloride 100 mmol/L (98-107); Creatinine Clearance Estimated 64 mL/min (50-200); Estimated Glomerular Filt Rate 82 ml/min (>60); GFR (African American) 100 ML/MIN (>60); Globulin 2.6 g/dL (1.3-3.2); Glucose 115 mg/dl (74-100); Potassium 3.7 mmoL/L (3.5-5.1); Sodium 137 mmol/L (136-145); Total Protein,Serum 6.7 g/dl (6.3-8.2)
[2021-11-03 13:37] LABS: Bilirubin,Total < 0.1 mg/dl (0.2-1.3)
[2021-11-03 13:39] LABS: White Blood Count 0.5 K/mm3 (4.8-10.8)
[2021-11-03 13:40] LABS: Hematocrit 20.3 % (42.0-52.0); Hemoglobin 6.9 g/dL (14.1-18.0); Platelet Count 34 K/mm3 (142-424)
[2021-11-03 13:41] LABS: MANUAL DIFFERENTIAL MANUAL DIFFERENTIAL (MANUAL DIFF)
--- NOTE | 2021-11-03 13:41 | PC.NURSE ---
Kalina Miranda called RN at 1334 to report wbc-0.5, hgb-6.9, hct-20.3, plt-34. RN repeated and verified pt name, , and lab values. Results called to Dr. Emilia Vaughan, no new orders received at this time.
[2021-11-03 13:57] LABS: Eosinophils % 12 % (0-3); Lymphocytes % 76 % (10-50); Monocytes % 4 % (2-9); Neutrophils % 8 % (42-76); Total Cells Counted 25
[2021-11-03 13:58] LABS: Acanthocytes 1+; Ovalocytes 1+; Platelet Estimate Marked Decrease
--- NOTE | 2021-11-03 14:31 | PC.NURSE ---
reviewed pt labs and ordered pt to receive a transfusion of 1 unit of blood. pt returned to outpt setting to get type and crossmatch performed. pt to return tomorrow for transfusion. venipuncture performed per lab staff, blood obtained and confirmation stick performed as well. pt ambulated self with to car.
== END 2021-11-03 13:18 | disposition home or self-care (01) ==
LOC: INF 13:07
PROVIDERS: PCP Internal Medicine Adolescent Medicine; Visit Provider Internal Medicine Medical Oncology
DX: C34.92 Malignant neoplasm of unspecified part of left bronchus or lung (principal)
CPT/HCPCS: 36415; 80053; 85007; 85025; 86850

== ENCOUNTER 2021-11-04 09:39 | Outpatient (CLI) | payer MEDICARE, OTHER, SELFPAY ==
[2021-11-04] VITALS (10 sets, daily range): BP systolic 130–165; BP diastolic 59–80; PULSE 68–74; RESP 16–18; TEMP 35.6–36.1; O2SAT 96–98; BMI 24.7
--- NOTE | 2021-11-04 10:27 | PC.NURSE ---
1023 - BLOOD TRANSFUSION STARTED AT 100 ML/HR AT THIS TIME.
--- NOTE | 2021-11-04 10:58 | PC.NURSE ---
1053 - INCREASED RATE TO 150 ML/HR AT THIS TIME.
--- NOTE | 2021-11-04 11:57 | PC.NURSE ---
1123 - INCREASED RATE TO 200 ML/HR AT THIS TIME.
--- NOTE | 2021-11-04 12:42 | PC.NURSE ---
INCREASED RATE TO 250 ML/HR AT 1153.
[2021-11-04 13:39] LABS: Hematocrit 27.1 % (42.0-52.0); Hemoglobin 9.5 g/dL (14.1-18.0)
== END 2021-11-04 13:37 | disposition home or self-care (01) ==
LOC: INF 09:39
PROVIDERS: PCP Internal Medicine Adolescent Medicine; Visit Provider Internal Medicine Medical Oncology
DX: C34.92 Malignant neoplasm of unspecified part of left bronchus or lung (principal)
CPT/HCPCS: 36430; 85014; 85018; P9016

== ENCOUNTER 2021-11-08 09:37 | Outpatient (CLI) | payer MEDICARE, OTHER, SELFPAY ==
[2021-11-08 09:38] VITALS: BMI 24.7
[2021-11-08 10:34] LABS: Basophils % 0.1 % (0.1-2.0); Eosinophils % 2.2 % (0.1-12.0); Hematocrit 25.9 % (42.0-52.0); Lymphocytes # 0.5 K/mm3 (0.7-4.5); Lymphocytes % 30.1 % (10-50); Mean Corpuscular HGB Conc 34.6 g/dL (31.8-35.4); Mean Corpuscular Hemoglobin 30.6 pg (27.0-31.2); Mean Corpuscular Volume 88.3 fl (80-94); Monocytes # 0.3 K/mm3 (0.1-1.0); Monocytes % 16.4 % (1.7-9.3); Neutrophils # 0.8 K/mm3 (1.8-7.8); Neutrophils % 51.2 % (37.0-80.0); Platelet Count 61 K/mm3 (142-424); Red Blood Count 2.93 M/mm3 (4.60-6.20); Red Cell Distribution Width 23.2 % (11.5-17.5); White Blood Count 1.6 K/mm3 (4.8-10.8)
[2021-11-08 10:49] LABS: Chloride 103 mmol/L (98-107); Potassium 4.4 mmoL/L (3.5-5.1); Sodium 138 mmol/L (136-145)
[2021-11-08 10:52] LABS: Alanine Aminotransferase 21 U/L (12-78); Albumin Level 4.3 g/dl (3.5-5.0); Albumin/Globulin Ratio 1.7 (1.1-1.8); Alkaline Phosphatase 88 U/L (38-126); Anion Gap 12.4 mEq/L (5-15); Aspartate Amino Transferase 29 U/L (17-59); Bilirubin,Total 0.5 mg/dl (0.2-1.3); Carbon Dioxide 27 mmol/L (22.0-30.0); Creatinine Clearance Estimated 63 mL/min (50-200); Estimated Glomerular Filt Rate 110 ml/min (>60); GFR (African American) 133 ML/MIN (>60); Globulin 2.5 g/dL (1.3-3.2); Glucose 107 mg/dl (74-100); Total Protein,Serum 6.8 g/dl (6.3-8.2)
[2021-11-08 10:59] LABS: Blood Urea Nitrogen 14 mg/dl (9-20)
== END 2021-11-08 11:25 | disposition home or self-care (01) ==
LOC: INF 09:38
PROVIDERS: PCP Internal Medicine Adolescent Medicine; Visit Provider Internal Medicine Medical Oncology
DX: C34.92 Malignant neoplasm of unspecified part of left bronchus or lung (principal)
CPT/HCPCS: 36415; 80053; 85025

== ENCOUNTER 2021-11-15 08:57 | Outpatient (CLI) | payer MEDICARE, OTHER, SELFPAY ==
[2021-11-15] VITALS (8 sets, daily range): BP systolic 151–168; BP diastolic 62–77; PULSE 66–76; RESP 18; TEMP 36.6; O2SAT 97–98; BMI 24.7
[2021-11-15 09:32] LABS: Basophils % 0.9 % (0.1-2.0); Chloride 103 mmol/L (98-107); Eosinophils % 0.7 % (0.1-12.0); Hematocrit 29.5 % (42.0-52.0); Hemoglobin 9.6 g/dL (14.1-18.0); Lymphocytes # 0.5 K/mm3 (0.7-4.5); Mean Corpuscular HGB Conc 32.7 g/dL (31.8-35.4); Mean Corpuscular Hemoglobin 31.6 pg (27.0-31.2); Mean Corpuscular Volume 96.4 fl (80-94); Mean Platelet Volume 8.5 fl (7.4-10.4); Monocytes # 0.3 K/mm3 (0.1-1.0); Monocytes % 9.8 % (1.7-9.3); Neutrophils # 2.1 K/mm3 (1.8-7.8); Neutrophils % 72.7 % (37.0-80.0); Platelet Count 231 K/mm3 (142-424); Red Blood Count 3.06 M/mm3 (4.60-6.20); Red Cell Distribution Width 25.2 % (11.5-17.5)
[2021-11-15 09:33] LABS: Sodium 138 mmol/L (136-145)
[2021-11-15 09:35] LABS: Alanine Aminotransferase 27 U/L (12-78); Alkaline Phosphatase 75 U/L (38-126); Aspartate Amino Transferase 40 U/L (17-59); Bilirubin,Total 0.2 mg/dl (0.2-1.3); Blood Urea Nitrogen 13 mg/dl (9-20); Carbon Dioxide 27 mmol/L (22.0-30.0); Creatinine Clearance Estimated 63 mL/min (50-200); Estimated Glomerular Filt Rate 131 ml/min (>60); GFR (African American) 159 ML/MIN (>60)
[2021-11-15 09:36] LABS: Albumin Level 4.4 g/dl (3.5-5.0); Albumin/Globulin Ratio 1.7 (1.1-1.8); Calcium 9.6 mg/dl (8.4-10.2); Globulin 2.6 g/dL (1.3-3.2); Glucose 129 mg/dl (74-100)
== END 2021-11-15 12:55 | disposition home or self-care (01) ==
LOC: INF 08:58
PROVIDERS: PCP Internal Medicine Adolescent Medicine; Visit Provider Internal Medicine Medical Oncology
DX: Z51.11 Encounter for antineoplastic chemotherapy (principal); C34.92 Malignant neoplasm of unspecified part of left bronchus or lung
CPT/HCPCS: 80053; 85025; 96413; 96415; 96417; J2469; J8501; J9045; J9181

== ENCOUNTER 2021-11-16 08:58 | Outpatient (CLI) | payer MEDICARE, OTHER, SELFPAY ==
[2021-11-16 09:13] VITALS: BP 155/46; PULSE 78; RESP 18; TEMP 36.6; O2SAT 98
[2021-11-16 09:50] VITALS: BP 158/61; PULSE 75; RESP 18; O2SAT 98
[2021-11-16 10:20] VITALS: BP 151/58; PULSE 75; RESP 18; O2SAT 98
[2021-11-16 10:50] VITALS: BP 144/57; PULSE 72; RESP 18; O2SAT 99
[2021-11-16 11:20] VITALS: BP 145/51; PULSE 76; RESP 18; O2SAT 98
[2021-11-16 11:40] VITALS: BP 146/55; PULSE 74; RESP 18; O2SAT 99
== END 2021-11-16 11:40 | disposition home or self-care (01) ==
LOC: INF 08:59
PROVIDERS: PCP Internal Medicine Adolescent Medicine; Visit Provider Internal Medicine Medical Oncology
DX: Z51.11 Encounter for antineoplastic chemotherapy (principal); C34.92 Malignant neoplasm of unspecified part of left bronchus or lung
CPT/HCPCS: 96413; J9181

== ENCOUNTER 2021-11-17 08:48 | Outpatient (CLI) | payer MEDICARE, OTHER, SELFPAY ==
[2021-11-17 09:28] VITALS: BP 140/76; PULSE 72; RESP 18; TEMP 36.2; O2SAT 97
[2021-11-17 10:00] VITALS: BP 135/75; PULSE 63; RESP 18
[2021-11-17 10:30] VITALS: BP 135/51; PULSE 71; RESP 18
[2021-11-17 11:00] VITALS: BP 146/59; PULSE 72; RESP 18
[2021-11-17 11:05] VITALS: RESP 18
[2021-11-17 11:15] VITALS: BP 129/44; PULSE 74; RESP 18; O2SAT 97
== END 2021-11-17 11:15 | disposition home or self-care (01) ==
LOC: INF 08:49
PROVIDERS: PCP Internal Medicine Adolescent Medicine; Visit Provider Internal Medicine Medical Oncology
DX: Z51.11 Encounter for antineoplastic chemotherapy (principal); C34.92 Malignant neoplasm of unspecified part of left bronchus or lung
CPT/HCPCS: 96413; J9181

== ENCOUNTER 2021-11-22 13:30 | Outpatient (CLI) | payer MEDICARE, OTHER, SELFPAY ==
[2021-11-22 13:35] VITALS: BMI 24.7
[2021-11-22 13:45] VITALS: BP 117/55; PULSE 83; RESP 18; O2SAT 96
[2021-11-22 13:56] LABS: Albumin/Globulin Ratio 1.7 (1.1-1.8); Chloride 103 mmol/L (98-107); Globulin 2.3 g/dL (1.3-3.2); Glucose 109 mg/dl (74-100); Potassium 3.6 mmoL/L (3.5-5.1); Total Protein,Serum 6.3 g/dl (6.3-8.2)
[2021-11-22 13:57] LABS: Alanine Aminotransferase 25 U/L (12-78); Alkaline Phosphatase 71 U/L (38-126); Anion Gap 8.6 mEq/L (5-15); Aspartate Amino Transferase 29 U/L (17-59); Bilirubin,Total 0.9 mg/dl (0.2-1.3); Blood Urea Nitrogen 30 mg/dl (9-20); Calcium 9.2 mg/dl (8.4-10.2); Carbon Dioxide 28 mmol/L (22.0-30.0); Creatinine Clearance Estimated 63 mL/min (50-200); Estimated Glomerular Filt Rate 94 ml/min (>60); GFR (African American) 114 ML/MIN (>60); Sodium 136 mmol/L (136-145)
[2021-11-22 14:01] LABS: Basophils % 0.4 % (0.1-2.0); Eosinophils # 0.1 K/mm3 (0.0-0.4); Eosinophils % 2.2 % (0.1-12.0); Hematocrit 26.7 % (42.0-52.0); Hemoglobin 8.7 g/dL (14.1-18.0); Lymphocytes # 0.3 K/mm3 (0.7-4.5); Lymphocytes % 9.9 % (10-50); Mean Corpuscular HGB Conc 32.7 g/dL (31.8-35.4); Mean Corpuscular Hemoglobin 32.3 pg (27.0-31.2); Mean Corpuscular Volume 98.7 fl (80-94); Mean Platelet Volume 7.5 fl (7.4-10.4); Neutrophils # 2.3 K/mm3 (1.8-7.8); Neutrophils % 86.4 % (37.0-80.0); Platelet Count 205 K/mm3 (142-424); Red Blood Count 2.71 M/mm3 (4.60-6.20); White Blood Count 2.6 K/mm3 (4.8-10.8)
[2021-11-22 14:15] LABS: Red Cell Distribution Width 25.1 % (11.5-17.5)
[2021-11-22 14:16] LABS: MANUAL DIFFERENTIAL MANUAL DIFFERENTIAL (MANUAL DIFF)
[2021-11-22 14:57] VITALS: BP 121/61; PULSE 68; RESP 18
[2021-11-22 14:58] LABS: Eosinophils % 1 % (0-3); Lymphocytes % 12 % (10-50); Neutrophils % 86 % (42-76); Platelet Estimate Normal; RBC Morphology Normal; Total Cells Counted 100
== END 2021-11-22 14:57 | disposition home or self-care (01) ==
LOC: INF 13:31
PROVIDERS: PCP Internal Medicine Adolescent Medicine; Visit Provider Internal Medicine Medical Oncology
DX: C34.92 Malignant neoplasm of unspecified part of left bronchus or lung (principal); E86.0 Dehydration
CPT/HCPCS: 80053; 85007; 85025; 96360

== ENCOUNTER 2021-12-05 09:47 | Outpatient (CLI) | payer MEDICARE, OTHER, SELFPAY ==
[2021-12-05 09:51] VITALS: BMI 24.5
[2021-12-05 10:24] LABS: Alanine Aminotransferase 33 U/L (12-78); Albumin Level 3.6 g/dl (3.5-5.0); Albumin/Globulin Ratio 1.3 (1.1-1.8); Alkaline Phosphatase 90 U/L (38-126); Anion Gap 11.5 mEq/L (5-15); Aspartate Amino Transferase 32 U/L (17-59); Blood Urea Nitrogen 10 mg/dl (9-20); Calcium 9.3 mg/dl (8.4-10.2); Carbon Dioxide 27 mmol/L (22.0-30.0); Chloride 102 mmol/L (98-107); Creatinine Clearance Estimated 62 mL/min (50-200); Estimated Glomerular Filt Rate 110 ml/min (>60); GFR (African American) 133 ML/MIN (>60); Globulin 2.7 g/dL (1.3-3.2); Glucose 110 mg/dl (74-100); Potassium 3.5 mmoL/L (3.5-5.1); Sodium 137 mmol/L (136-145); Total Protein,Serum 6.3 g/dl (6.3-8.2)
[2021-12-05 10:26] LABS: Bilirubin,Total < 0.1 mg/dl (0.2-1.3)
[2021-12-05 10:30] LABS: Basophils % 0.5 % (0.1-2.0); Eosinophils % 1.2 % (0.1-12.0); Hematocrit 22.5 % (42.0-52.0); Hemoglobin 7.3 g/dL (14.1-18.0); Lymphocytes # 0.6 K/mm3 (0.7-4.5); Lymphocytes % 18.9 % (10-50); Mean Corpuscular HGB Conc 32.5 g/dL (31.8-35.4); Mean Corpuscular Hemoglobin 33.4 pg (27.0-31.2); Mean Corpuscular Volume 102.8 fl (80-94); Mean Platelet Volume 8.8 fl (7.4-10.4); Monocytes # 0.4 K/mm3 (0.1-1.0); Monocytes % 12.6 % (1.7-9.3); Neutrophils % 66.9 % (37.0-80.0); Platelet Count 153 K/mm3 (142-424); Red Blood Count 2.19 M/mm3 (4.60-6.20)
[2021-12-05 10:51] LABS: Red Cell Distribution Width 25.3 % (11.5-17.5)
[2021-12-05 11:50] VITALS: BP 148/58; PULSE 73; RESP 16; TEMP 36.4; O2SAT 97
== END 2021-12-05 12:55 | disposition home or self-care (01) ==
LOC: INF 09:47
PROVIDERS: PCP Internal Medicine Adolescent Medicine; Visit Provider Internal Medicine Medical Oncology
DX: C34.92 Malignant neoplasm of unspecified part of left bronchus or lung (principal); E86.0 Dehydration
CPT/HCPCS: 36415; 80053; 85025; 96360

== ENCOUNTER 2021-12-12 08:55 | Outpatient (CLI) | payer MEDICARE, OTHER, SELFPAY ==
[2021-12-12 08:59] VITALS: BMI 24.2
--- NOTE | 2021-12-12 09:13 | PC.NURSE ---
pt here for repeat labs as ordered per md today. venipuncture performed to lt ac and blood drawn per order. specimen sent to lab for analysis. will await results to determine poc.
[2021-12-12 09:21] LABS: Eosinophils % 0.7 % (0.1-12.0); Hematocrit 25.3 % (42.0-52.0); Hemoglobin 7.8 g/dL (14.1-18.0); Lymphocytes # 0.5 K/mm3 (0.7-4.5); Lymphocytes % 16.2 % (10-50); Mean Corpuscular HGB Conc 30.9 g/dL (31.8-35.4); Mean Corpuscular Hemoglobin 32.6 pg (27.0-31.2); Mean Corpuscular Volume 105.6 fl (80-94); Mean Platelet Volume 9.2 fl (7.4-10.4); Monocytes # 0.3 K/mm3 (0.1-1.0); Monocytes % 9.5 % (1.7-9.3); Neutrophils # 2.4 K/mm3 (1.8-7.8); Neutrophils % 72.6 % (37.0-80.0); Platelet Count 318 K/mm3 (142-424); White Blood Count 3.4 K/mm3 (4.8-10.8)
[2021-12-12 09:23] LABS: Red Cell Distribution Width 26.1 % (11.5-17.5)
[2021-12-12 09:27] LABS: Alanine Aminotransferase 28 U/L (12-78); Albumin Level 3.8 g/dl (3.5-5.0); Albumin/Globulin Ratio 1.6 (1.1-1.8); Alkaline Phosphatase 83 U/L (38-126); Anion Gap 11.2 mEq/L (5-15); Aspartate Amino Transferase 29 U/L (17-59); Blood Urea Nitrogen 8 mg/dl (9-20); Carbon Dioxide 27 mmol/L (22.0-30.0); Chloride 105 mmol/L (98-107); Creatinine Clearance Estimated 61 mL/min (50-200); Estimated Glomerular Filt Rate 110 ml/min (>60); GFR (African American) 133 ML/MIN (>60); Globulin 2.4 g/dL (1.3-3.2); Glucose 169 mg/dl (74-100); Potassium 3.2 mmoL/L (3.5-5.1); Sodium 140 mmol/L (136-145); Total Protein,Serum 6.2 g/dl (6.3-8.2)
[2021-12-12 09:28] LABS: Bilirubin,Total < 0.1 mg/dl (0.2-1.3)
== END 2021-12-12 09:40 | disposition home or self-care (01) ==
LOC: INF 08:56
PROVIDERS: PCP Internal Medicine Adolescent Medicine; Visit Provider Internal Medicine Medical Oncology
DX: C34.92 Malignant neoplasm of unspecified part of left bronchus or lung (principal)
CPT/HCPCS: 36415; 80053; 85025

== ENCOUNTER → 2022-01-02 08:08 | Outpatient (CLI) | payer MEDICARE, OTHER, SELFPAY ==
[2022-01-02 08:12] VITALS: BMI 24.2
--- NOTE | 2022-01-02 08:24 | PC.NURSE ---
20g PIV initiated to left forearm (per 2 attempts) for CT scan. PIV left in place for CT. Labs drawn. Pt tolerated well.
[2022-01-02 08:25] VITALS: O2SAT 98
[2022-01-02 08:29] LABS: Basophils # 0.1 K/mm3 (0-0.2); Basophils % 1.1 % (0.1-2.0); Eosinophils # 0.5 K/mm3 (0.0-0.4); Eosinophils % 8.2 % (0.1-12.0); Hemoglobin 13.1 g/dL (14.1-18.0); Lymphocytes # 0.8 K/mm3 (0.7-4.5); Lymphocytes % 12.3 % (10-50); Mean Corpuscular HGB Conc 31.9 g/dL (31.8-35.4); Mean Corpuscular Hemoglobin 34.9 pg (27.0-31.2); Mean Corpuscular Volume 109.3 fl (80-94); Mean Platelet Volume 7.9 fl (7.4-10.4); Monocytes # 0.5 K/mm3 (0.1-1.0); Neutrophils # 4.3 K/mm3 (1.8-7.8); Neutrophils % 70.4 % (37.0-80.0); Platelet Count 224 K/mm3 (142-424); Red Blood Count 3.75 M/mm3 (4.60-6.20); Red Cell Distribution Width 19.8 % (11.5-17.5); White Blood Count 6.1 K/mm3 (4.8-10.8)
[2022-01-02 08:36] LABS: Alanine Aminotransferase 32 U/L (12-78); Albumin Level 5.1 g/dl (3.5-5.0); Albumin/Globulin Ratio 1.6 (1.1-1.8); Alkaline Phosphatase 71 U/L (38-126); Anion Gap 17.1 mEq/L (5-15); Aspartate Amino Transferase 77 U/L (17-59); Bilirubin,Total 1.1 mg/dl (0.2-1.3); Blood Urea Nitrogen 12 mg/dl (9-20); Calcium 9.5 mg/dl (8.4-10.2); Carbon Dioxide 28 mmol/L (22.0-30.0); Chloride 96 mmol/L (98-107); Creatinine Clearance Estimated 61 mL/min (50-200); Estimated Glomerular Filt Rate 110 ml/min (>60); GFR (African American) 133 ML/MIN (>60); Globulin 3.2 g/dL (1.3-3.2); Glucose 93 mg/dl (74-100); Potassium 5.1 mmoL/L (3.5-5.1); Sodium 136 mmol/L (136-145); Total Protein,Serum 8.3 g/dl (6.3-8.2)
--- NOTE | 2022-01-02 08:45 | CT_ITS ---
FINAL REPORT TECHNIQUE: Pre and post contrast axial imaging of the chest was obtained. Reformatted images were also obtained and reviewed. This study was performed with techniques to keep radiation doses as low as reasonably achievable (ALARA). Individualized dose reduction techniques using automated exposure control or adjustment of mA and/or kV according to the patient's size were employed. CLINICAL HISTORY: LUNG CANCER FINDINGS: There are postoperative changes of CABG. Previously noted AP window lymph node and left hilar adenopathy has significantly decreased in size. Also decrease in size is a spiculated left lower lobe lesion now measuring 11 mm. There is new linear density in the posterior right middle lobe seen on image number [id number] of series 8. There are mild changes of centrilobular emphysema. IMPRESSION: Improved mediastinal and left hilar adenopathy with decreased size of left lower lobe mass. New, posterior right middle lobe density, favor atelectasis. Reviewed, Interpreted and Dictated by Jakub Jansen MD Transcribed by Rach Sotomayor Authenticated and [facility]
--- NOTE | 2022-01-02 08:45 | CT_ITS ---
FINAL REPORT TECHNIQUE: Pre and post contrast axial imaging of the abdomen and pelvis was obtained. Reformatted images were also obtained and reviewed. This study was performed with techniques to keep radiation doses as low as reasonably achievable (ALARA). Individualized dose reduction techniques using automated exposure control or adjustment of mA and/or kV according to the patient's size were employed. CLINICAL HISTORY: LUNG CANCER FINDINGS: The liver is normal in size and attenuation. The spleen is unremarkable. The adrenals are normal. The pancreas is unremarkable. Pre contrast imaging demonstrates vascular calcifications seen in the renal hilum. Dense vascular calcification is noted of the abdominal aorta and iliac vessels. Postcontrast imaging demonstrates tiny benign cysts in the liver measuring up 8 mm. The gallbladder is present. There is bilateral adrenal hyperplasia. Benign-appearing renal cysts are seen measuring up to 3.2 cm in diameter, several appear to represent complex, benign cysts. There is extensive sigmoid diverticulosis. Mild wall thickening is seen of the sigmoid colon which may be due to colitis. The appendix is not visualized. There is trace free fluid in the pelvis. A bladder is unremarkable. There is no adenopathy. IMPRESSION: Adrenal hyperplasia. Benign-appearing renal cysts. Mucosal thickening of the sigmoid colon likely due to colitis. Reviewed, Interpreted and Dictated by Jakub Jansen MD Transcribed by Rach Sotomayor Authenticated and [facility]
== END ==
PROVIDERS: PCP Internal Medicine Adolescent Medicine; Visit Provider Internal Medicine Medical Oncology
DX: C34.92 Malignant neoplasm of unspecified part of left bronchus or lung (principal); Z03.89 Encounter for observation for other suspected diseases and conditions ruled out
CPT/HCPCS: 36415; 71270; 74178; 80053; 85025; Q9967

== ENCOUNTER → 2022-03-11 11:00 | Outpatient (CLI) | payer MEDICARE, OTHER, SELFPAY ==
[2022-03-11 11:39] LABS: Basophils % 0.7 % (0.1-2.0); Hematocrit 41.2 % (42.0-52.0); Hemoglobin 12.5 g/dL (14.1-18.0); Lymphocytes # 0.5 K/mm3 (0.7-4.5); Lymphocytes % 11.7 % (10-50); Mean Corpuscular HGB Conc 30.4 g/dL (31.8-35.4); Mean Corpuscular Hemoglobin 30.8 pg (27.0-31.2); Mean Corpuscular Volume 101.2 fl (80-94); Mean Platelet Volume 7.1 fl (7.4-10.4); Monocytes # 0.4 K/mm3 (0.1-1.0); Monocytes % 9.8 % (1.7-9.3); Neutrophils # 3.1 K/mm3 (1.8-7.8); Neutrophils % 76.8 % (37.0-80.0); Platelet Count 173 K/mm3 (142-424); Red Blood Count 4.07 M/mm3 (4.60-6.20); Red Cell Distribution Width 14.8 % (11.5-17.5); White Blood Count 4.1 K/mm3 (4.8-10.8)
[2022-03-11 13:48] LABS: Chloride 99 mmol/L (98-107)
[2022-03-11 13:49] LABS: Potassium 4.6 mmoL/L (3.5-5.1); Sodium 136 mmol/L (136-145)
[2022-03-11 13:51] LABS: Blood Urea Nitrogen 23 mg/dl (9-20); Estimated Glomerular Filt Rate 82 ml/min (>60); GFR (African American) 100 ML/MIN (>60)
[2022-03-11 13:52] LABS: Alanine Aminotransferase 26 U/L (12-78); Albumin Level 4.6 g/dl (3.5-5.0); Albumin/Globulin Ratio 1.8 (1.1-1.8); Alkaline Phosphatase 73 U/L (38-126); Anion Gap 13.6 mEq/L (5-15); Aspartate Amino Transferase 37 U/L (17-59); Bilirubin,Total 0.3 mg/dl (0.2-1.3); Calcium 9.8 mg/dl (8.4-10.2); Carbon Dioxide 28 mmol/L (22.0-30.0); Globulin 2.5 g/dL (1.3-3.2); Glucose 85 mg/dl (74-100); Total Protein,Serum 7.1 g/dl (6.3-8.2)
== END ==
PROVIDERS: PCP Internal Medicine Adolescent Medicine; Visit Provider Nurse Practitioner Family
DX: R11.0 Nausea (principal); R05.1 Acute cough; C34.92 Malignant neoplasm of unspecified part of left bronchus or lung
CPT/HCPCS: 36415; 80053; 85025

== ENCOUNTER → 2022-03-20 11:50 | Outpatient (CLI) | payer MEDICARE, OTHER, SELFPAY ==
--- NOTE | 2022-03-20 11:53 | XR_ITS ---
FINAL REPORT CLINICAL HISTORY: COUGH, APPLE PT HAS SMALL CELL LUNG CANCER COMPARISON: 01/02/2022 FINDINGS: 2 views of the chest were obtained . Patient is status post median sternotomy. The heart is normal in size. The mediastinum is within normal limits. The lungs are hyperexpanded consistent with COPD. There is no pneumothorax. Osseous structures are unremarkable. IMPRESSION: COPD without acute cardiopulmonary process. Reviewed, Interpreted and Dictated by Karri Roldan III, MD Transcribed by Rach Sotomayor Authenticated and [facility]
== END ==
PROVIDERS: PCP Nurse Practitioner Family; Visit Provider Nurse Practitioner Family
DX: R06.09 Other forms of dyspnea (principal); R05.1 Acute cough
CPT/HCPCS: 71046

== ENCOUNTER → 2022-03-30 09:00 | Outpatient (CLI) | payer MEDICARE, OTHER, SELFPAY ==
--- NOTE | 2022-03-30 09:07 | CT_ITS ---
FINAL REPORT TECHNIQUE: Axial CT images of the abdomen and pelvis were obtained before and after the administration of IV contrast. Oral contrast was administered.This study was performed with techniques to keep radiation doses as low as reasonably achievable (ALARA). Individualized dose reduction techniques using automated exposure control or adjustment of mA and/or kV according to the patient''s size were employed. CLINICAL HISTORY: LUNG CANCER FINDINGS: Abdomen: The heart is normal in size. There are several, small hepatic cysts which are stable from prior exam. No new hepatic mass is seen. . The spleen is unremarkable. There is mild adrenal enlargement, favor hyperplasia, stable from prior exam. The pancreas has an unremarkable appearance. There are multiple bilateral renal cysts which are visually stable. The aorta is normal in caliber. There is no free fluid or adenopathy. No new mass or abnormal fluid collection is seen. Precontrast images demonstrate no evidence of nephrolithiasis. Pelvis: The appendix is normal. There is widespread sigmoid diverticulosis. There are bilateral inguinal hernias containing fat. The urinary bladder is unremarkable. No inflammatory process is seen. There is no adenopathy. There is no evidence of bowel obstruction. There is a small lytic focus of the right L5 vertebral body which is stable but of uncertain significance. There is no new bony abnormality. IMPRESSION: No evidence of acute intra-abdominal process. Reviewed, Interpreted and Dictated by Karri Roldan III, MD Transcribed by Rach Sotomayor Authenticated and [facility]
--- NOTE | 2022-03-30 09:07 | CT_ITS ---
FINAL REPORT TECHNIQUE: Axial imaging of the chest was obtained with and without contrast. Reformatted images were also obtained and reviewed. Low-dose technique was utilized. CLINICAL HISTORY: LUNG CANCER COMPARISON: 01/02/2022 FINDINGS: There are small mediastinal lymph nodes. There is no adenopathy. Patient is status post median sternotomy. There is no axillary mass or adenopathy. There are mild emphysematous changes. Again seen is a left lower lobe nodule measuring 12 mm, previously measured 11 mm. Slight difference may be due to imaging variation. There are multifocal ground-glass opacities some of which are stable, some of which are worse. There are multiple new, small right lung nodules measuring less than 5 mm of uncertain etiology. Favor infectious/inflammatory over neoplastic. There is no pleural or pericardial effusion. IMPRESSION: Multifocal ground-glass opacities, some of which are worse from prior exam. Multiple, new, small right lung nodules measuring less than 5 mm. Favor infectious/inflammatory over neoplastic. Findings could be further evaluated with follow-up CT in 3 months. Reviewed, Interpreted and Dictated by Karri Roldan III, MD Transcribed by Rach Sotomayor Authenticated and [facility]
== END ==
PROVIDERS: PCP Nurse Practitioner Family; Visit Provider Internal Medicine Medical Oncology
DX: C34.32 Malignant neoplasm of lower lobe, left bronchus or lung (principal); Z03.89 Encounter for observation for other suspected diseases and conditions ruled out
CPT/HCPCS: 71270; 74178; Q9967

== ENCOUNTER → 2022-06-16 13:06 | Outpatient (CLI) | payer MEDICARE, OTHER, SELFPAY ==
--- NOTE | 2022-06-16 13:12 | XR_ITS ---
FINAL REPORT CLINICAL HISTORY: COPD EXACERBATION. hx lung cancer. COMPARISON: 03/20/2022 FINDINGS: PA and lateral views of the chest were obtained. The cardiac silhouette is normal. The patient is status post median sternotomy. There are changes of emphysema and evidence of old granulomatous disease. The lungs are otherwise clear. There is no pleural effusion or pneumothorax. No acute osseous abnormality is identified. IMPRESSION: No radiographic evidence of acute cardiac or pulmonary disease. Reviewed, Interpreted and Dictated by Yas Coe MD Transcribed by Bernadette Nolasco Authenticated and [facility]
== END ==
PROVIDERS: PCP Internal Medicine Adolescent Medicine; Visit Provider Physician Assistant
DX: J44.1 Chronic obstructive pulmonary disease with (acute) exacerbation (principal)
CPT/HCPCS: 71046

== ENCOUNTER 2022-06-23 13:20 | Outpatient (CLI) | payer MEDICARE, OTHER, SELFPAY ==
[2022-06-23 13:35] VITALS: BMI 25.4
[2022-06-23 13:59] LABS: Chloride 101 mmol/L (98-107); Potassium 3.5 mmoL/L (3.5-5.1); Sodium 137 mmol/L (136-145)
[2022-06-23 14:02] LABS: Alanine Aminotransferase 25 U/L (12-78); Albumin Level 4.5 g/dl (3.5-5.0); Albumin/Globulin Ratio 1.4 (1.1-1.8); Alkaline Phosphatase 90 U/L (38-126); Anion Gap 11.5 mEq/L (5-15); Aspartate Amino Transferase 27 U/L (17-59); Bilirubin,Total 0.5 mg/dl (0.2-1.3); Blood Urea Nitrogen 19 mg/dl (9-20); Calcium 9.2 mg/dl (8.4-10.2); Carbon Dioxide 28 mmol/L (22.0-30.0); Creatinine Clearance Estimated 64 mL/min (50-200); Estimated Glomerular Filt Rate 82 ml/min (>60); GFR (African American) 99 ML/MIN (>60); Globulin 3.2 g/dL (1.3-3.2); Glucose 110 mg/dl (74-100); Total Protein,Serum 7.7 g/dl (6.3-8.2)
[2022-06-23 14:07] LABS: Basophils # 0.1 K/mm3 (0-0.2); Basophils % 0.9 % (0.1-2.0); Eosinophils # 1.1 K/mm3 (0.0-0.4); Eosinophils % 10.5 % (0.1-12.0); Hematocrit 42.1 % (42.0-52.0); Hemoglobin 13.7 g/dL (14.1-18.0); Lymphocytes # 0.7 K/mm3 (0.7-4.5); Mean Corpuscular HGB Conc 32.5 g/dL (31.8-35.4); Mean Corpuscular Hemoglobin 30.3 pg (27.0-31.2); Mean Corpuscular Volume 93.2 fl (80-94); Mean Platelet Volume 7.3 fl (7.4-10.4); Monocytes # 0.8 K/mm3 (0.1-1.0); Monocytes % 8.2 % (1.7-9.3); Neutrophils # 7.5 K/mm3 (1.8-7.8); Neutrophils % 73.4 % (37.0-80.0); Platelet Count 307 K/mm3 (142-424); Red Blood Count 4.52 M/mm3 (4.60-6.20); Red Cell Distribution Width 16.2 % (11.5-17.5); White Blood Count 10.2 K/mm3 (4.8-10.8)
== END 2022-06-23 14:00 | disposition home or self-care (01) ==
LOC: INF 13:21
PROVIDERS: PCP Internal Medicine Adolescent Medicine; Visit Provider Internal Medicine Medical Oncology
DX: C34.92 Malignant neoplasm of unspecified part of left bronchus or lung (principal)
CPT/HCPCS: 36415; 80053; 85025

== ENCOUNTER → 2022-06-26 08:52 | Outpatient (CLI) | payer MEDICARE, OTHER, SELFPAY ==
--- NOTE | 2022-06-26 08:57 | CT_ITS ---
FINAL REPORT TECHNIQUE: Postcontrast axial images through the abdomen and pelvis were performed. Oral contrast was administered. This study was performed with techniques to keep radiation doses as low as reasonably achievable, (ALARA). Individualized dose reduction techniques using automated exposure control or adjustment of mA and/or kV according to the patient's size were employed. CLINICAL HISTORY: LUNG CANCER, followup COMPARISON: March 2022 FINDINGS: Abdomen: There are several small hepatic cysts. There is mild nonspecific gallbladder wall thickening. The spleen is unremarkable. Bilateral adrenal gland enlargement is stable and favors adenomas or hyperplasia. The pancreas is unremarkable. There are multiple bilateral renal cysts many of which do not appear to represent simple cysts better stable as compared to prior. The aorta is normal in caliber. No free fluid or adenopathy is identified. No findings for mechanical bowel obstruction are identified. Pelvis: The appendix is normal. There is diverticulosis of the sigmoid colon. The urinary bladder is unremarkable. No free fluid, free air, abscess or adenopathy is identified. There are bilateral inguinal hernias containing fat. There is a 5 mm lytic lesion in the right side of L5 of uncertain significance that is stable from prior. IMPRESSION: No acute process identified. Stable exam. Reviewed, Interpreted and Dictated by Karri Roldan III, MD Transcribed by Mitchel Payne Authenticated and [facility]
--- NOTE | 2022-06-26 08:57 | CT_ITS ---
FINAL REPORT TECHNIQUE: After the administration of intravenous contrast, axial images through the chest were performed by computed tomography.This study was performed with techniques to keep radiation doses as low as reasonably achievable, (ALARA). Individualized dose reduction techniques using automated exposure control or adjustment of mA and/or kV according to the patient''s size were employed. CLINICAL HISTORY: LUNG CANCER followup COMPARISON: March 2022 FINDINGS: There has been sternotomy. There is no axillary adenopathy. There are small mediastinal lymph nodes. The heart size is normal. There is no pericardial or pleural effusion. There are moderate changes of emphysema. A 5 mm right upper lobe nodule on image 13 previously measured 2 mm. An 11 mm left lower lobe nodule previously measured 11 mm. There is a new 5 mm nodule in the lateral left lower lobe. There are multiple other pulmonary nodules many of which are stable. IMPRESSION: Multiple pulmonary nodules some of which are stable while others are new and/or worse. Findings are nonspecific and could be inflammatory or neoplastic. Recommend follow-up CT or PET-CT. Reviewed, Interpreted and Dictated by Karri Roldan III, MD Transcribed by Mitchel Payne Authenticated and [facility]
== END ==
PROVIDERS: PCP Internal Medicine Adolescent Medicine; Visit Provider Internal Medicine Medical Oncology
DX: C34.92 Malignant neoplasm of unspecified part of left bronchus or lung (principal)
CPT/HCPCS: 71260; 74177; Q9967

== ENCOUNTER 2022-07-12 09:33 | Day surgery (SDC) | payer MEDICARE, OTHER, SELFPAY ==
[2022-07-12] VITALS (20 sets, daily range): BP systolic 125–222; BP diastolic 64–86; PULSE 70–85; RESP 16–20; TEMP 36.1–36.6; O2SAT 77–100; BMI 25.0
--- NOTE | 2022-07-12 07:07 | IR_ITS ---
APPROVED REPORT Patient Location: Outpatient PROCEDURES Left heart catheterization Left ventriculogram Selective coronary angiogram Left internal mammary angiography INDICATION Coronary artery disease, Angina pectoris, History of coronary bypass surgery Informed consent was obtained prior to the procedure. COMPLICATIONS None Estimated Blood Loss: Less than 10 mls TECHNIQUE One percent lidocaine used to anesthetize the right groin. The right femoral artery was accessed via the Seldinger technique and a 5 Swiss sheath was placed in the right femoral artery. A JL 4, JR4 catheter were used to perform left heart catheterization, left ventriculogram selective coronary angiography as well as nonselective engagement of the left internal mammary artery. At the end of the procedure the patient was transferred to the postop holding area in stable condition for sheath removal. ANGIOGRAPHIC RESULTS The left main artery Normal The left anterior descending artery Has a proximal concentric 90% stenosis followed by 2 diagonal arteries with 1 diagonal artery having a proximal 90% stenosis and an additional 2 mm diagonal artery being patent with minimal disease. The circumflex artery Socrates is rise to ramus intermedius which was moderate in size and has a proximal eccentric 60% stenosis the circumflex artery has a proximal eccentric 40 to 50% stenosis The right coronary artery Ostially occluded The EUBANKS ventriculogram reveals Normal 65% The left ventricular end-diastolic pressure 10 mmHg FRIAS to LAD is patent Both saphenous vein grafts are known to be occluded from previous angiography IMPRESSION Coronary disease as described above Normal ejection fraction Normal left ventricular end-diastolic pressure Patent FRIAS to LAD 2 occluded saphenous vein graft known to be occluded from previous heart cath PLAN 1. Patient has coronary artery disease which could be stented if angina becomes absolutely recalcitrant. The angiogram is not changed in the last couple of years. The proximal LAD could be stented which would supply the diagonal arteries however I do favor medical management at this time. Likewise the ramus intermedius could be stented but this is probably not producing the angina although it is possible. I do recommend medical management of both of these lesions at this time and trying to further maximize antianginal medications. If angina becomes absolutely recalcitrant he will be brought back to the C[facility]adder will undergo LAD stenting as well as ramus intermedius stent 2. Aggressive risk factor modification 3. Aggressive antianginal medication Electronically signed by : Servando Davila MD 07/12/2022 13:37:13
[2022-07-12 10:32] LABS: Anion Gap 7.9 mEq/L (5-15); Basophils # 0.1 K/mm3 (0-0.2); Basophils % 0.9 % (0.1-2.0); Blood Urea Nitrogen 14 mg/dl (9-20); Calcium 9.1 mg/dl (8.4-10.2); Carbon Dioxide 32 mmol/L (22.0-30.0); Chloride 98 mmol/L (98-107); Creatinine Clearance Estimated 62 mL/min (50-200); Eosinophils # 0.7 K/mm3 (0.0-0.4); Eosinophils % 10.3 % (0.1-12.0); Estimated Glomerular Filt Rate 94 ml/min (>60); GFR (African American) 114 ML/MIN (>60); Glucose 109 mg/dl (74-100); Hematocrit 43.4 % (42.0-52.0); Hemoglobin 13.2 g/dL (14.1-18.0); Lymphocytes % 14.4 % (10-50); Mean Corpuscular HGB Conc 30.3 g/dL (31.8-35.4); Mean Corpuscular Hemoglobin 28.7 pg (27.0-31.2); Mean Corpuscular Volume 94.8 fl (80-94); Mean Platelet Volume 6.6 fl (7.4-10.4); Monocytes # 0.5 K/mm3 (0.1-1.0); Monocytes % 6.9 % (1.7-9.3); Neutrophils # 4.6 K/mm3 (1.8-7.8); Neutrophils % 67.6 % (37.0-80.0); Platelet Count 294 K/mm3 (142-424); Potassium 3.9 mmoL/L (3.5-5.1); Red Blood Count 4.58 M/mm3 (4.60-6.20); Sodium 134 mmol/L (136-145); White Blood Count 6.8 K/mm3 (4.8-10.8)
[2022-07-12 12:28] LABS: CATHL Activated Clotting Time 322 SEC (74-125)
== END 2022-07-12 15:15 | disposition home or self-care (01) ==
LOC: CATHLAB 09:34
PROVIDERS: PCP Internal Medicine Adolescent Medicine; Visit Provider Internal Medicine
DX: E78.2 Mixed hyperlipidemia (principal); I10 Essential (primary) hypertension; I70.213 Atherosclerosis of native arteries of extremities with intermittent claudication, bilateral legs; I77.1 Stricture of artery; J44.9 Chronic obstructive pulmonary disease, unspecified; R06.09 Other forms of dyspnea; R94.30 Abnormal result of cardiovascular function study, unspecified; Z85.118 Personal history of other malignant neoplasm of bronchus and lung; Z95.1 Presence of aortocoronary bypass graft; I25.118 Atherosclerotic heart disease of native coronary artery with other forms of angina pectoris; I25.719 Atherosclerosis of autologous vein coronary artery bypass graft(s) with unspecified angina pectoris; I25.82 Chronic total occlusion of coronary artery
CPT/HCPCS: 80048; 85025; 85347; 93459; 99152; C1725; C1769; C1894; J1644; Q9967

== ENCOUNTER → 2022-07-13 11:54 | Outpatient (CLI) | payer MEDICARE, OTHER, SELFPAY ==
--- NOTE | 2022-07-13 12:02 | XR_ITS ---
FINAL REPORT CLINICAL HISTORY: SOB, hx lung cancer LLL COMPARISON: 06/16/2022 FINDINGS: PA and lateral views of the chest were obtained. The cardiac silhouette is within normal limits. The patient is status post median sternotomy. No focal infiltrate is identified. There is underlying emphysema. There is no pleural effusion or pneumothorax. No acute osseous abnormality is identified. IMPRESSION: No radiographic evidence of acute cardiac or pulmonary disease. Reviewed, Interpreted and Dictated by Yas Coe MD Transcribed by Bernadette Nolasco Authenticated and [facility]
== END ==
PROVIDERS: PCP Internal Medicine Adolescent Medicine; Visit Provider Internal Medicine Pulmonary Disease
DX: R06.02 Shortness of breath (principal)
CPT/HCPCS: 71046

== ENCOUNTER → 2022-07-17 08:23 | Outpatient (CLI) | payer MEDICARE, OTHER, SELFPAY | PROVIDERS: PCP Internal Medicine Adolescent Medicine; Visit Provider Nurse Practitioner Family | DX: E78.2 Mixed hyperlipidemia (principal); I10 Essential (primary) hypertension; I20.8 Other forms of angina pectoris; I73.9 Peripheral vascular disease, unspecified; I77.9 Disorder of arteries and arterioles, unspecified; J44.9 Chronic obstructive pulmonary disease, unspecified; R06.09 Other forms of dyspnea; R94.30 Abnormal result of cardiovascular function study, unspecified; Z85.118 Personal history of other malignant neoplasm of bronchus and lung; Z95.1 Presence of aortocoronary bypass graft | CPT/HCPCS: 93306 ==

== ENCOUNTER → 2022-07-19 09:40 | Outpatient (CLI) | payer MEDICARE, OTHER, SELFPAY ==
[2022-07-19 10:03] LABS: Adenovirus,PCR Not Detected (NotDetected); Bordetella Pertussis Not Detected (NotDetected); Chlamydophila Pneumoniae, PCR Not Detected (NotDetected); Coronavirus 19, PCR Not Detected (NotDetected); Coronavirus 229E Not Detected (NotDetected); Coronavirus NL63 Not Detected (NotDetected); Coronavirus OC43 Not Detected (NotDetected); Coronovirus HKU1,PCR Not Detected (NotDetected); Human Metapneumovirus Not Detected (NotDetected); Influenza A, PCR Not Detected (NotDetected); Influenza AH1, 2009 Not Detected (NotDetected); Influenza AH1, PCR Not Detected (NotDetected); Influenza AH3,PCR Not Detected (NotDetected); Influenza B, PCR Not Detected (NotDetected); Mycoplasma Pneumoniae, PCR Not Detected (NotDetected); Parainfluenza 1, PCR Not Detected (NotDetected); Parainfluenza 2, PCR Not Detected (NotDetected); Parainfluenza 3, PCR Not Detected (NotDetected); Parainfluenza 4, PCR Not Detected (NotDetected); Respiratory Syncytial Virus Not Detected (NotDetected); Rhinovirus/Enterovirus Not Detected (NotDetected)
== END ==
PROVIDERS: PCP Internal Medicine Adolescent Medicine; Visit Provider Nurse Practitioner
DX: Z20.828 Contact with and (suspected) exposure to other viral communicable diseases (principal); R06.09 Other forms of dyspnea
CPT/HCPCS: 87581; 87632; 87798; C9803; U0003; U0005

== ENCOUNTER 2022-08-18 11:08 | Day surgery (SDC) | payer MEDICARE, OTHER, SELFPAY ==
[2022-08-16 12:41] VITALS: BMI 24.2
[2022-08-18 11:32] VITALS: BP 158/63; PULSE 78; RESP 18; TEMP 36.2; O2SAT 97
--- NOTE | 2022-08-18 11:32 | EXP.ANES.CKL ---
[facility] Disclaimer: The information contained in this section may have been updated after the patient was seen, as this information can be updated by other users. Medical History Abdominal bruit Allergic rhinitis CAD (coronary artery disease) Cardiac murmur Carotid artery disease Chronic cough Claudication COPD (chronic obstructive pulmonary disease) COPD exacerbation COPD mixed type Dyspnea on exertion Hearing Loss Hemoptysis Impacted cerumen Laceration of right ear canal Lung nodule Peripheral arterial disease Small cell lung cancer Smoker Smoking greater than 30 pack years Surgical History H/O angioplasty History of cardiac cath History of carpal tunnel release Family History Other Asthma Social History Smoking Status: Former smoker alcohol intake: never substance use type: denies use current occupational status: retired Travel in the last 8 weeks: Inside the [place] household members: spouse housing: house [facility] Anesthesia Checklist Patient Identification Patient Identification: Arm Band and Verbal (Name & ) Structural Data Admitted From: Home Planned Operative Procedure/s: Colonoscopy Consent for Planned Operative Procedure(s) Verified: Yes NPO Status Verified Time NPO: 00:00 Additional verifications Anesthesia Reactions: No Hx Blood Transfusions: Yes Blood Transfusion Reaction: No Airway Assessment C-Spine Mobility Assessed: Yes TMJ Mobility Assessed: Yes Dentition: Edentulous Neurological Assessment Level of Consciousness: Awake Hx Seizures: No Numbness or tingling in extremities: No Anesthesia Plan Anesthesia Risk discussed: Yes Anesthesia Plan: Verified ASA Class: III Anesthesia Type: MAC
[2022-08-18 12:11] VITALS: O2SAT 97
--- NOTE | 2022-08-18 12:36 | HMH.SCOPE ---
Procedure: Date: 08/18/22 Patient Date of :: 1945 Procedure Performed:: Proctosigmoidoscopy Indications:: Patient is a 77-year-old with history of small cell lung cancer referred by Dr. Curtis Montes for colonoscopy. Patient apparently does have a family history of colon cancer in his mother. He had undergone colonoscopy with Dr. Stiles in 2004 and had diverticulosis. He had undergone Cologuard testing which was positive and Dr. Stiles performed a colonoscopy on 09/18/2016. He had findings consistent with right-sided NSAID induced colopathy and had a polyp in the descending and rectosigmoid colon measuring 6 to 7 mm. It was recommended he undergo follow-up colonoscopy in 5 years given family history and findings of polyps. Performing Provider:: Karri Alarcon MD Referring Provider:: Curtis Montes MD Sedation:: MAC sedation Procedure:: Patient history was obtained and appropriate physical examination was performed. Patient's medications and allergies were reviewed. Informed consent was obtained after explaining the benefits, alternatives, and risks of the procedure including, but not limited to, bleeding, perforation, missed lesions, and adverse reaction to anesthesia medications. Patient was transported to endoscopy procedure room. Patient was connected to monitoring devices. Throughout the procedure the patient's blood pressure, pulse, and oxygen saturations were monitored continuously. Patient identification and planned procedure were verified by the staff. Patient was positioned in lateral decubitus position. Digital anorectal exam was performed. Variable stiffness Olympus colonoscope was inserted. With difficulty it was only able to be advanced to the distal sigmoid colon as he had profound diverticulosis. Procedure was carried out for about 20 minutes and despite multiple efforts and manipulation of the colonoscope it could not be advanced at this time due to his significant chronic diverticular disease. Due to potential for possible perforation with continued instrumentation of the colon the colonoscope was withdrawn. Findings:: Severe diverticulosis Recommendations:: May consider contrast enema with Cologuard testing. May consider colonoscopy with gastroenterology. Complications:: None immediately apparent Estimated blood obtained (mL): 0
[2022-08-18 12:40] VITALS: BP 91/38; PULSE 66; RESP 14; TEMP 36.6; O2SAT 95
[2022-08-18 12:50] VITALS: BP 123/47; PULSE 63; RESP 15; O2SAT 96
[2022-08-18 13:00] VITALS: BP 124/72; PULSE 60; RESP 16; O2SAT 95
[2022-08-18 13:10] VITALS: BP 141/68; PULSE 60; RESP 16; O2SAT 96
== END 2022-08-18 13:20 | disposition home or self-care (01) ==
PROVIDERS: PCP Internal Medicine Adolescent Medicine; Visit Provider Surgery
PROC: 0DJD8ZZ Inspection of Lower Intestinal Tract, Via Natural or Artificial Opening Endoscopic (ICD-10-PCS; principal; 2022-08-18 12:30)
DX: Z12.11 Encounter for screening for malignant neoplasm of colon (principal); Z86.010 Personal history of colon polyps; K57.30 Diverticulosis of large intestine without perforation or abscess without bleeding; Z79.899 Other long term (current) drug therapy; Z80.0 Family history of malignant neoplasm of digestive organs
CPT/HCPCS: 45330; J2704

== ENCOUNTER → 2022-08-25 10:36 | Outpatient (CLI) | payer MEDICARE, OTHER, SELFPAY ==
--- NOTE | 2022-08-25 10:36 | FL_ITS ---
FINAL REPORT CLINICAL HISTORY: DIVERTICULITIS - UNSUCESSFUL SCOPE FINDINGS: BARIUM ENEMA HISTORY: Incomplete colonoscopy. PROCEDURE: Barium contrast was instilled into the patient's colon via a rectal tube, using gravity drip. Spot and overhead films were performed. A total of 31 images were saved. FINDINGS: [place] film is unremarkable. Mucosal detail is limited by retained stool. There is scattered diverticular disease, predominantly in the sigmoid colon. There are no constricting or obstructing lesions identified to the level of the cecum. The appendix fills with contrast. FLUOROSCOPY TIME: 1 minute 32 seconds IMPRESSION: No constricting or obstructing lesions to the level of the cecum. Diverticulosis. Reviewed, Interpreted and Dictated by Carol Jolly MD Transcribed by Brisa Pedroza PA-C Authenticated and [facility]
== END ==
PROVIDERS: PCP Internal Medicine Adolescent Medicine; Visit Provider Surgery
DX: K57.92 Diverticulitis of intestine, part unspecified, without perforation or abscess without bleeding (principal)
CPT/HCPCS: 74270

== ENCOUNTER 2022-09-01 09:27 | Inpatient (IN) | payer MEDICARE, OTHER, SELFPAY ==
[2022-09-01] VITALS (12 sets, daily range): BP systolic 99–145; BP diastolic 36–69; PULSE 72–102; RESP 16–20; TEMP 36.4–39.3; O2SAT 88–99; BMI 24.2; BMI 24.0
--- NOTE | 2022-09-01 09:40 | HMH.EDGENADL ---
Discharge Plan Disposition Patient Disposition: Admitted As Inpatient Clinical Impressions Clinical Impression: Cellulitis of lower leg, LO (acute kidney injury) Discharge ED Provider: Christianne Ling General Adult HPI General Chief complaint: PAIN Stated complaint: RT leg inflammation w/pain, possible dehydration Time Seen by Provider: 09/01/22 09:40 History of Present Illness HPI narrative: Patient is a 77-year-old male present with right lower extremity erythema and pain. States that he was playing golf for the last 5 days and then yesterday evening began feeling relatively sick feeling significant pain in his right lower extremities and having severe chills to the point where he turned on the fireplace. Was very warm last night outside. Patient states that the pain has significantly worsened overnight and this morning noticed that there is significant erythema his right lower extremity is not exactly sure when the erythema began. No significant swelling in the right lower extremity. No dyspnea or shortness of breath or chest pain. He does have a history of lung cancer but is no longer on any radiation or chemotherapy. He is not on any immunosuppressants and has no immune suppressing diseases. States he still having significant chills and pain is severe. Additionally does have peripheral arterial disease but has not had any changes in sensation motor functioning temperature or color to his distal foot. Related Data Home Medications Medication Instructions Recorded Confirmed albuterol sulfate 90 mcg/actuation 2 puff inhalation Q4-6H PRN copd 08/27/17 08/18/22 aerosol inhaler (Ventolin HFA) aspirin 81 mg tablet,delayed 81 mg PO DAILY Blood thinner 08/27/17 08/18/22 release (Adult Low Dose Aspirin) folic acid 1 mg tablet 1 mg PO DAILY Supplement 08/27/17 08/18/22 multivitamin 1 tab PO QAM Supplement 08/27/17 08/18/22 acetaminophen 300 mg-codeine 30 mg 1 tab PO Q12H PRN pain 04/11/21 08/18/22 tablet fluticasone fur. 100 mcg-umeclid 1 inh inhalation DAILY COPD 09/06/21 08/18/22 62.5 mcg-vilant 25 mcg inhalat.powder mirtazapine 7.5 mg tablet 7.5 mg PO DAILY Depression 04/17/22 08/18/22 albuterol sulfate 1.25 mg/3 mL 1.25 mg inhalation Q6H PRN copd 07/10/22 08/18/22 solution for nebulization azelastine 205.5 mcg (0.15 %) 2 spray intranasal BID allergies 08/18/22 08/18/22 nasal spray fluticasone propionate 50 2 spray intranasal DAILY allergies 08/18/22 08/18/22 mcg/actuation nasal spray,suspension (Flonase Allergy Relief) isosorbide mononitrate 30 mg 30 mg PO DAILY htn 08/18/22 08/18/22 tablet,extended release 24 hr metoprolol succinate 100 mg 100 mg PO DAILY htn 08/18/22 08/18/22 tablet,extended release 24 hr montelukast 10 mg tablet 10 mg PO DAILY allergies 08/18/22 08/18/22 Previous Rx's Medication Instructions Recorded pantoprazole 40 mg tablet,delayed 40 mg PO DAILY GERD #90 tabs 02/20/22 release atorvastatin 80 mg tablet 80 mg PO DAILY HLD #90 tabs 03/27/22 clopidogrel 75 mg tablet 75 mg PO DAILY Blood thinner #30 05/08/22 tabs ipratropium 0.5 mg-albuterol 3 mg 3 ml inhalation QID PRN shortness 06/29/22 (2.5 mg base)/3 mL nebulization of breath or wheezing 90 days #270 soln mL cetirizine 10 mg capsule (Zyrtec) 10 mg PO DAILY PRN allergic 08/04/22 symptoms #30 caps Allergies Allergy/AdvReac Type Severity Reaction Status Date / Time Penicillins Allergy Intermediate I-ITCHING; Verified 07/19/22 09:17 SWELLING Antihistamines - Ethanolamine Allergy Unknown Unknown Verified 07/19/22 09:17 allergy reaction doxycycline AdvReac Mild Rash Verified 07/19/22 09:17 [facility] Disclaimer: The information contained in this section may have been updated after the patient was seen, as this information can be updated by other users. Medical History Abdominal bruit Allergic rhinitis CAD (coronary artery disease) Cardiac murmur Carotid artery disease Chroni
--- NOTE | 2022-09-01 09:48 | CA_ITS ---
FINAL REPORT TECHNIQUE: Color Doppler, duplex Doppler and compression sonography of the right lower extremity venous system was performed. CLINICAL HISTORY: RLE swelling, erythema knee down, PAD, lung CA,copd FINDINGS: There is no evidence of deep venous thrombosis from the level of the groin to the calf. The veins are patent and compressible. IMPRESSION: No evidence of deep venous thrombosis right lower extremity. Reviewed, Interpreted and Dictated by Karri Roldan III, MD Transcribed by Bernadette Nolasco [facility]henticated [facility]
--- NOTE | 2022-09-01 09:48 | XR_ITS ---
FINAL REPORT CLINICAL HISTORY: infection, r/o gas COMPARISON: None FINDINGS: Two views of the right tibia/fibula were obtained. There is no acute fracture or dislocation. There is mild degenerative change. There are multiple small radiodense foreign bodies in the proximal lower leg. Diffuse vascular calcifications are noted. IMPRESSION: No acute bony abnormality. Multiple small radiodense foreign bodies proximal lower leg. Reviewed, Interpreted and Dictated by Karri Roldan III, MD Transcribed by Nichelle Pearson Authenticated and [facility]
--- NOTE | 2022-09-01 10:00 | EXP.PHA.CONS ---
Pharmacy Consult Date: 09/01/22 Time: 10:00 Referring provider: DR. MARTINEZ Reason for Consult:: VANCOMYCIN DOSING Allergies Allergy/AdvReac Type Severity Reaction Status Date / Time Penicillins Allergy Intermediate I-ITCHING; Verified 07/19/22 09:17 SWELLING Antihistamines - Ethanolamine Allergy Unknown Unknown Verified 07/19/22 09:17 allergy reaction doxycycline AdvReac Mild Rash Verified 07/19/22 09:17 Home Medications Medication Instructions Recorded Confirmed Type albuterol sulfate 90 mcg/actuation 2 puff inhalation Q4-6H PRN copd 08/27/17 08/18/22 History aerosol inhaler (Ventolin HFA) aspirin 81 mg tablet,delayed 81 mg PO DAILY Blood thinner 08/27/17 08/18/22 History release (Adult Low Dose Aspirin) folic acid 1 mg tablet 1 mg PO DAILY Supplement 08/27/17 08/18/22 History multivitamin 1 tab PO QAM Supplement 08/27/17 08/18/22 History acetaminophen 300 mg-codeine 30 mg 1 tab PO Q12H PRN pain 04/11/21 08/18/22 History tablet fluticasone fur. 100 mcg-umeclid 1 inh inhalation DAILY COPD 09/06/21 08/18/22 History 62.5 mcg-vilant 25 mcg inhalat.powder pantoprazole 40 mg tablet,delayed 40 mg PO DAILY GERD #90 tabs 02/20/22 08/18/22 Rx release atorvastatin 80 mg tablet 80 mg PO DAILY HLD #90 tabs 03/27/22 08/18/22 Rx mirtazapine 7.5 mg tablet 7.5 mg PO DAILY Depression 04/17/22 08/18/22 History clopidogrel 75 mg tablet 75 mg PO DAILY Blood thinner #30 05/08/22 08/18/22 Rx tabs ipratropium 0.5 mg-albuterol 3 mg 3 ml inhalation QID PRN shortness 06/29/22 08/18/22 Rx (2.5 mg base)/3 mL nebulization of breath or wheezing 90 days #270 soln mL albuterol sulfate 1.25 mg/3 mL 1.25 mg inhalation Q6H PRN copd 07/10/22 08/18/22 History solution for nebulization cetirizine 10 mg capsule (Zyrtec) 10 mg PO DAILY PRN allergic 08/04/22 08/18/22 Rx symptoms #30 caps azelastine 205.5 mcg (0.15 %) 2 spray intranasal BID allergies 08/18/22 08/18/22 History nasal spray fluticasone propionate 50 2 spray intranasal DAILY allergies 08/18/22 08/18/22 History mcg/actuation nasal spray,suspension (Flonase Allergy Relief) isosorbide mononitrate 30 mg 30 mg PO DAILY htn 08/18/22 08/18/22 History tablet,extended release 24 hr metoprolol succinate 100 mg 100 mg PO DAILY htn 08/18/22 08/18/22 History tablet,extended release 24 hr montelukast 10 mg tablet 10 mg PO DAILY allergies 08/18/22 08/18/22 History New Prescriptions to Start Prescriptions: Height: 1.68 m Weight: 68.039 kg Laboratory Results:: USED PREVIOUS SRCR FOR FIRST DOSE. Medical History: Medical History Abdominal bruit Allergic rhinitis CAD (coronary artery disease) Cardiac murmur Carotid artery disease Chronic cough Claudication COPD (chronic obstructive pulmonary disease) COPD exacerbation COPD mixed type Dyspnea on exertion Hearing Loss Hemoptysis Impacted cerumen Laceration of right ear canal Lung nodule Peripheral arterial disease Small cell lung cancer Smoker Smoking greater than 30 pack years Assessment and Plan Assessment and plan all Dx Assessment and Plan for all problems:: Pharmacokinetic dosing service Objective: Patient: Floor: Age: 77 yo Serum creatinine: 1 mg/dL Height: 66.1 Inches Weight (kg): 68 Assessment: IBW (kg): 64.03 Dosing wt(kg): 68 Estimated Creatinine clearance (ml/min): 56.9 CRCL method: Cockcroft and Gault using ibw(default). Drug selected: Vancomycin Loading dose (mg): 0 Vd (liters): 54.4 (factor used: 0.8 L/kg) Shahriar (hr-1): 0.052 Half life (hrs): 13.33 Recommended dose: 1250 mg Interval: 18 hrs Infusion time (hrs): 2.0 Predicted peak (mcg/mL): 35.9 Predicted trough (mcg/mL): 15.62 Total body weight is being used for vancomycin dosing. Recommendations: Give Vancomycin 1250 mg q 18 hrs wi
--- NOTE | 2022-09-01 10:16 | PC.NURSE ---
Family at . Devi Aguero RN at to start IV
--- NOTE | 2022-09-01 10:32 | PC.NURSE ---
2nd Blood Culture obtained from RT forearm and sent to lab
[2022-09-01 10:43] LABS: Basophils % 0.2 % (0.1-2.0); Eosinophils # 0.1 K/mm3 (0.0-0.4); Eosinophils % 0.7 % (0.1-12.0); Hemoglobin 11.3 g/dL (14.1-18.0); Lymphocytes # 0.3 K/mm3 (0.7-4.5); Mean Corpuscular HGB Conc 32.2 g/dL (31.8-35.4); Mean Corpuscular Hemoglobin 28.5 pg (27.0-31.2); Mean Corpuscular Volume 88.3 fl (80-94); Mean Platelet Volume 8.3 fl (7.4-10.4); Monocytes # 0.3 K/mm3 (0.1-1.0); Monocytes % 2.4 % (1.7-9.3); Neutrophils # 13.3 K/mm3 (1.8-7.8); Neutrophils % 94.7 % (37.0-80.0); Platelet Count 247 K/mm3 (142-424); Red Blood Count 3.97 M/mm3 (4.60-6.20); Red Cell Distribution Width 18.1 % (11.5-17.5); White Blood Count 14.1 K/mm3 (4.8-10.8)
[2022-09-01 10:45] LABS: MANUAL DIFFERENTIAL MANUAL DIFFERENTIAL (MANUAL DIFF)
[2022-09-01 10:57] LABS: Alanine Aminotransferase 48 U/L (12-78); Albumin Level 4.4 g/dl (3.5-5.0); Albumin/Globulin Ratio 1.3 (1.1-1.8); Alkaline Phosphatase 42 U/L (38-126); Anion Gap 24.5 mEq/L (5-15); Aspartate Amino Transferase 78 U/L (17-59); Bilirubin,Total 1.2 mg/dl (0.2-1.3); Blood Urea Nitrogen 24 mg/dl (9-20); Calcium 8.6 mg/dl (8.4-10.2); Carbon Dioxide 21 mmol/L (22.0-30.0); Chloride 95 mmol/L (98-107); Creatinine Clearance Estimated 40 mL/min (50-200); Estimated Glomerular Filt Rate 46 ml/min (>60); GFR (African American) 55 ML/MIN (>60); Globulin 3.3 g/dL (1.3-3.2); Glucose 151 mg/dl (74-100); Potassium 5.5 mmoL/L (3.5-5.1); Sodium 135 mmol/L (136-145); Total Protein,Serum 7.7 g/dl (6.3-8.2)
[2022-09-01 11:03] LABS: C-Reactive Protein 117.6 mg/L (0-4)
[2022-09-01 11:09] LABS: Burr Cells 1+; Hypochromasia 1+; Lymphocytes % 6 % (10-50); Monocytes % 2 % (2-9); Neutrophils % 77 % (42-76); Ovalocytes 1+; Total Cells Counted 100
[2022-09-01 11:10] LABS: Platelet Estimate Normal
[2022-09-01 11:16] LABS: Lactic Acid 5.1 mmol/L (0.7-2.1)
--- NOTE | 2022-09-01 11:16 | PC.NURSE ---
lab called critical lactic of 5.1, aware
--- NOTE | 2022-09-01 11:17 | PC.NURSE ---
spoke to care management for bed assignment.
--- NOTE | 2022-09-01 11:17 | PC.NURSE ---
paged for Dr Montes, advised Lisa would call back
--- NOTE | 2022-09-01 11:20 | PC.NURSE ---
covid swab sent to lab; pt given a bag for all of his belongings. family at BS. no other needs at this time, call jon within reach
[2022-09-01 11:21] LABS: Coronavirus 19, PCR Not Detected (NotDetected); Influenza A, PCR Not Detected (NotDetected); Influenza B, PCR Not Detected (NotDetected)
--- NOTE | 2022-09-01 11:37 | PC.NURSE ---
Addendum entered by Balbir Truong RN 09/01/22 11:38: verbal order from MD for 4mg morphine IV to be given to patient for pain management after scan. Original Note: verbal order from MD for 4mg morphine to be given to patient for pain management after scan.
--- NOTE | 2022-09-01 11:47 | PC.NURSE ---
Dr Ling speaking with Lisa for Dr Montes for admission
--- NOTE | 2022-09-01 11:58 | PC.NURSE ---
Report received from Balbir. Requested temporary bridge orders to be placed, she stated she would notify
--- NOTE | 2022-09-01 12:11 | PC.NURSE ---
Notified by ER that activity and diet order was placed
--- NOTE | 2022-09-01 12:13 | PC.NURSE ---
Dr. Ling speaking with patient at this time regarding POC
--- NOTE | 2022-09-01 12:33 | PC.NURSE ---
patient arrived by stretcher from ED
--- NOTE | 2022-09-01 13:46 | CT_ITS ---
FINAL REPORT TECHNIQUE: Axial images of the head were obtained without contrast. Coronal reformatted images were also obtained. This study was performed with techniques to keep radiation doses as low as reasonably achievable (ALARA). Individualized dose reduction techniques using automated exposure control or adjustment of mA and/or kV according to the patient's size were employed. CLINICAL HISTORY: MS changes COMPARISON: None FINDINGS: There is mild generalized age appropriate atrophy. There is no evidence of intracranial hemorrhage or mass. The ventricular size is within normal limits. There is no evidence of shift of the midline structures. No skull abnormality is seen on the bone window images. There is opacification of several mastoid air cells bilaterally. IMPRESSION: No acute intracranial abnormality. Reviewed, Interpreted and Dictated by Karri Roldan III, MD Transcribed by Nichelle Pearson Authenticated and [facility]
--- NOTE | 2022-09-01 13:47 | XR_ITS ---
FINAL REPORT CLINICAL HISTORY: fever, sepsis w/u COMPARISON: 07/13/2022 FINDINGS: A single portable view of the chest was obtained. The heart size and pulmonary vascularity are within normal limits. There is evidence of prior median sternotomy. There are mild left lung opacities worrisome for pneumonia. The bony thorax is intact. IMPRESSION: Findings worrisome for pneumonia. Reviewed, Interpreted and Dictated by Karri Roldan III, MD Transcribed by Nichelle Pearson Authenticated and [facility]
--- NOTE | 2022-09-01 13:51 | EXP.HP ---
History of Present Illness *Admission Date: 09/01/22 *Reason for visit:: Fever/confusion *History of present illness: 77-year-old male with history of severe COPD, cardiac atherosclerosis and peripheral atherosclerosis, ex heavy smoker, status post lung cancer treatment with chemotherapy and radiation therapy is currently out of therapy with no noted disease and is in the surveillance phase, who was feeling good over the past week, playing golf and doing some yard work, when yesterday evening he began to feel very tired and lost his appetite and could not eat supper. He reports that he became very chilled and even turned on his fireplace even though it was very warm outside. This morning he became even more chilled and feverish and weak. Was brought to the emergency department. He is unclear about how he got to the ER. His is not with him at this point-she went home to get medications-and he is unable to really complete sentences which is a very unusual finding for him. He reports that his leg has been somewhat painful and tender over the past 24 hours but has not really looked at it. In the ER he was found to meet sepsis criteria with high lactate, high WBC counts, elevated creatinine and source of infection was found to be his right anterior holt. She was admitted for further observation and vancomycin was started in the ER. [facility] Disclaimer: The information contained in this section may have been updated after the patient was seen, as this information can be updated by other users. Medical History Abdominal bruit Allergic rhinitis CAD (coronary artery disease) Cardiac murmur Carotid artery disease Chronic cough Claudication COPD (chronic obstructive pulmonary disease) COPD exacerbation COPD mixed type Dyspnea on exertion Hearing Loss Hemoptysis Impacted cerumen Laceration of right ear canal Lung nodule Peripheral arterial disease Small cell lung cancer Smoker Smoking greater than 30 pack years Surgical History (Updated 09/01/22 @ 13:03 by Esha Alvares RN) H/O angioplasty H/O endarterectomy History of cardiac cath History of carpal tunnel release Status post insertion of iliac artery stent Family History Other Asthma Social History (Updated 09/01/22 @ 13:04 by Esha Alvares RN) Smoking Status: Former smoker alcohol intake: never substance use type: denies use current occupational status: retired Travel in the last 8 weeks: Inside the [place] household members: spouse housing: house caffeine: Yes Review of Systems Review of Systems Review of systems:: pertinent systems reviewed and negative unless documented below Meds Home Medications and Allergies Home Medications Medication Instructions Recorded Confirmed Type albuterol sulfate 90 mcg/actuation 2 puff inhalation Q4-6H PRN copd 08/27/17 08/18/22 History aerosol inhaler (Ventolin HFA) aspirin 81 mg tablet,delayed 81 mg PO DAILY Blood thinner 08/27/17 08/18/22 History release (Adult Low Dose Aspirin) folic acid 1 mg tablet 1 mg PO DAILY Supplement 08/27/17 09/01/22 History multivitamin 1 tab PO QAM Supplement 08/27/17 08/18/22 History acetaminophen 300 mg-codeine 30 mg 1 tab PO Q12H PRN pain 04/11/21 08/18/22 History tablet fluticasone fur. 100 mcg-umeclid 1 inh inhalation DAILY COPD 09/06/21 09/01/22 History 62.5 mcg-vilant 25 mcg inhalat.powder pantoprazole 40 mg tablet,delayed 40 mg PO DAILY GERD #90 tabs 02/20/22 09/01/22 Rx release atorvastatin 80 mg tablet 80 mg PO DAILY HLD #90 tabs 03/27/22 09/01/22 Rx mirtazapine 7.5 mg tablet 7.5 mg PO DAILY Depression 04/17/22 08/18/22 History clopidogrel 75 mg tablet 75 mg PO DAILY Blood thinner #30 05/08/22 09/01/22 Rx tabs ipratropium 0.5 mg-albuterol 3 mg 3 ml inhalation QID PRN shortness 06/29/22 09/01/22 Rx (2.5 mg base)/3 mL nebulization of breath or wheezing 90 days #270
--- NOTE | 2022-09-01 13:58 | EXP.SEPSISRE ---
[facility] Tissue Perfusion Eval Sepsis Re-Evaluation Performed: Yes Date Performed: 09/01/22 Time Performed: 13:58
[2022-09-01 14:40] LABS: Reflex Lactic Add Lactic Reflex
--- NOTE | 2022-09-01 14:42 | [facility].PHAINT1 ---
Pharmacy Intervention Comments: MEDICATION RECONCILIATION COMPLETED ON PATIENT USING EXTERNAL FILL HISTORY FROM PHARMACY AND LIST FROM PULMONOLOGY OFFICE. -JOSH SPRINGERD
[2022-09-01 15:02] LABS: Thyroid Stimulating Hormone 3.46 uIU/mL (0.465-4.68)
[2022-09-01 15:21] LABS: Vitamin B12 363 pg/mL (239-931)
[2022-09-01 15:23] LABS: Ammonia < 9 umol/L (9-30)
[2022-09-01 15:24] LABS: Lactic Acid Follow Up (RFLX 1) 3.8 mmol/L (0.7-2.1)
--- NOTE | 2022-09-01 16:02 | PC.NURSE ---
Pt is alert and oriented x4 with occasional moments of confusion. Lungs are clear, he remains on RA and tolerating well. Bowel sounds active x4. Abdomen is slightly distended. He reports having a poor appetite. He is very [place], hearing aid noted to left ear. Erythema noted to RLE holt from below the knee to top of his foot. Pics on chart. +1 pedal pulses noted bilaterally. Urinal at bedside, patient instructed on the need for a specimen. is at bedside. Bed is locked and in the lowest position, call light is within reach.
[2022-09-01 17:10] LABS: Reflex Lactic (2 hrs) Add Lactic Reflex
[2022-09-01 17:53] LABS: Lactic Acid Follow up (RFLX 2) 2.5 mmol/L (0.7-2.1)
--- NOTE | 2022-09-01 20:43 | PC.NURSE ---
Patient's temp orally 102.8. dr carson paged via air control electronics operator.
--- NOTE | 2022-09-01 20:48 | PC.NURSE ---
new orders from dr carson for tylenol 650mg po every 6 hrs as needed and motrin 400 mg po every 8 hrs as needed.
[2022-09-01 21:53] LABS: Microscopic, Urine URINE MICROSCOPIC (MICROSCOPIC)
[2022-09-01 22:20] LABS: Appearance,Urine CLEAR (Clear); Bilirubin,Urine Negative (Negative); Blood, Urine 1+ (Negative); Color,Urine YELLOW (Yellow); Glucose,Urine (UA) Negative (Negative); Ketones,Urine Negative (Negative); Leukocyte Esterase,Urine Negative (Negative); Nitrate,Urine Negative (Negative); PH,Urine 5.5 (5.0-8.5); Protein,Urine 1+ (Negative); Specific Gravity, Urine 1.025 (1.005-1.030); Urobilinogen,Urine 0.2 EU/dl (0.2)
[2022-09-01 23:04] LABS: Squamous Epithelial Cell,Urine Occasional #/hpf (0-5); WBC,Urine Occasional #/hpf (0-3)
--- NOTE | 2022-09-01 23:07 | PC.NURSE ---
Dr Johnson paged for positive blood cultures: see micro.
--- NOTE | 2022-09-02 03:21 | PC.NURSE ---
PATIENT GOT UP OOB. DID NOT USE CALL [facility]. wAS INCONTINENT LARGE AMT OF BROWN SEMI LIQUID STOOL ALL OVER THE FLOOR., RECEIVED BATH. LINENS CHANGED. DURING BATH SRNA FOUND AN ULCERATION ON INNER ASPECT OF 4TH TOE ON RIGHT FOOT. pATIENT STATES HAS BEEN BATTLING THID ULCERATION FOR 1-2 YRS.
[2022-09-02 04:00] VITALS: BMI 24.2
[2022-09-02 04:39] VITALS: BP 97/54; PULSE 78
[2022-09-02 06:03] VITALS: TEMP 36.6
[2022-09-02 07:58] VITALS: BP 111/58; PULSE 72; RESP 17; TEMP 36.6; O2SAT 98
--- NOTE | 2022-09-02 09:13 | EXP.ACUTE.PN ---
Subjective *Date: 09/02/22 *Time: 09:13 Interval history: Patient slept well overnight. His reports that he is much clearer vis-?-vis mental status this morning. He also gives me a history that a couple nights ago after he his leg was hurting he took a couple of Tylenol 3 that he had leftover from his cancer pain syndrome when he was actively being treated for lung cancer. Medical Exam Vital signs and Labs for Last 24 Hours: Vital Signs Temp Pulse Pulse Resp BP BP Pulse Ox 09/02/22 07:58 97.9 F 72 17 111/58 L 98 09/02/22 06:03 97.9 F 09/02/22 04:39 78 97/54 L 09/01/22 11:42 96 09/01/22 22:20 96 09/01/22 22:20 99.4 F 09/01/22 20:00 102.8 F H 102 H 18 99/52 L 88 L 09/01/22 20:00 88 L 09/01/22 16:00 98.6 F 102 H 18 111/69 89 L 09/01/22 14:18 100.2 F H 73 18 121/58 L 96 09/01/22 12:51 97.9 F 72 16 120/63 09/01/22 12:01 79 120/60 97 09/01/22 11:31 72 19 120/63 99 09/01/22 11:01 77 135/55 L 98 09/01/22 10:30 78 20 100/36 L 09/01/22 10:01 75 20 123/56 L 09/01/22 09:28 97.5 F L 82 16 145/65 H 96 Intake and Output 09/01/22 09/02/22 09/02/22 19:59 03:59 11:59 Intake Total 1575 / 3744 1100 / 3744 1069 / 3744 Output Total 50 / 50 Balance 1575 / 3694 1050 / 3694 1069 / 3694 Intake: Intake, Oral Amount 240 / 480 240 / 480 Intake, Total IV Amount 1575 / 3264 860 / 3264 829 / 3264 0.9 % Sodium Chloride 1000ML 1, 1575 / 3114 810 / 3114 729 / 3114 000 ml @ 100 mls/hr IV .Q10H [facility] Rx#:[id number] Clindamycin Phosphate/D5w 900 50 / 50 mg In 50 ml @ 100 mls/hr IV Q8H [facility] Rx#:[id number] Clindamycin Phosphate/D5w 900 100 / 100 mg In 50 ml @ 100 mls/hr IV Q8H [facility] Rx#:[id number] Output: Output, Urine Amount 50 / 50 Other: Number of Unmeasured Voids 1 Number of Bowel Movements 1 1 Weight 149 lb 1 oz 150 lb 11.2 oz Patient Weight 09/02/22 11:59 Weight 150 lb 11.2 oz Laboratory Results - last 24 hr 09/01/22 10:30: WBC 14.1 H, RBC 3.97 L, Hgb 11.3 L, Hct 35.0 L, MCV 88.3, MCH 28.5, MCHC 32.2, RDW 18.1 H, Plt Count 247, MPV 8.3, Neut % (Auto) 94.7 H, Lymph % (Auto) 2.0 L, [place] % (Auto) 2.4, Eos % (Auto) 0.7, Baso % (Auto) 0.2, Neut # (Auto) 13.3 H, Lymph # (Auto) 0.3 L, [place] # (Auto) 0.3, Eos # (Auto) 0.1, Baso # (Auto) 0.0, Total Counted 100, Neutrophils % (Manual) 77 H, Band Neutrophils % 15.0 H, Lymphocytes % (Manual) 6 L, Monocytes % (Manual) 2, Platelet Estimate Normal, Hypochromasia 1+, Ovalocytes 1+, [place] Cells 1+ 09/01/22 10:30: Sodium 135 L, Potassium 5.5 H, Chloride 95 L, Carbon Dioxide 21 L, Anion Gap 24.5 H, BUN 24 H, Creatinine 1.50 H, Estimated Creat Clear 40, Estimated GFR 46 L, Est GFR ( Amer) 55 L, Glucose 151 H, Calcium 8.6, Total Bilirubin 1.2, AST 78 H, ALT 48, Alkaline Phosphatase 42, C-Reactive Protein 117.6 H, Total Protein 7.7, Albumin 4.4, Globulin 3.3 H, Albumin/Globulin Ratio 1.3 09/01/22 10:30: Lactate 5.1 H 09/01/22 10:30: Vitamin B12 363, TSH 3.46 09/01/22 11:16: SARS-CoV-2 (PCR) Not detected, Influenza A Untype (PCR) Not detected, Influenza Type B (PCR) Not detected 09/01/22 15:04: Ammonia < 9 L 09/01/22 15:04: Lactate 3.8 H 09/01/22 17:20: Lactate 2.5 H 09/01/22 20:30: Urine Color Yellow, Urine Appearance Clear, Urine pH 5.5, Ur Specific [place] 1.025, Urine Protein 1+, Urine Glucose (UA) Negative, Urine Ketones Negative, Urine Blood 1+, Urine Nitrate Negative, Urine Bilirubin Negative, Urine Urobilinogen 0.2, Ur Leukocyte Esterase Negative, Urine RBC 3-5, Urine WBC Occasional, Ur Squamous Epith Cells Occasional, Urine Bacteria None I & O for Labs for Last 24 Hours: Intake & Output 08/30/22 08/31/22 09/01/22 09/02/22 11:59 11:59 11:59 11:59 Intake Total 3744 / 3744 Output Total 50 / 50 Balance 3694 / 3694 Weight 150 lb 150 lb 11.2 oz Microbiology Reports for the Last 24
[2022-09-02 09:46] LABS: Basophils % 0.3 % (0.1-2.0); Eosinophils # 0.1 K/mm3 (0.0-0.4); Eosinophils % 0.8 % (0.1-12.0); Hematocrit 32.7 % (42.0-52.0); Hemoglobin 10.2 g/dL (14.1-18.0); Lymphocytes # 0.4 K/mm3 (0.7-4.5); Lymphocytes % 4.6 % (10-50); Mean Corpuscular HGB Conc 31.1 g/dL (31.8-35.4); Mean Corpuscular Hemoglobin 28.1 pg (27.0-31.2); Mean Corpuscular Volume 90.3 fl (80-94); Mean Platelet Volume 8.2 fl (7.4-10.4); Monocytes # 0.2 K/mm3 (0.1-1.0); Monocytes % 2.4 % (1.7-9.3); Platelet Count 175 K/mm3 (142-424); Red Blood Count 3.62 M/mm3 (4.60-6.20); Red Cell Distribution Width 18.2 % (11.5-17.5); White Blood Count 9.7 K/mm3 (4.8-10.8)
[2022-09-02 09:49] LABS: MANUAL DIFFERENTIAL MANUAL DIFFERENTIAL (MANUAL DIFF)
[2022-09-02 10:18] LABS: Anisocytosis 1+; Hypochromasia 1+; Lymphocytes % 8 % (10-50); Monocytes % 3 % (2-9); Neutrophils % 89 % (42-76); Platelet Estimate Normal; Total Cells Counted 100
[2022-09-02 10:47] LABS: Anion Gap 18.6 mEq/L (5-15); Blood Urea Nitrogen 34 mg/dl (9-20); Calcium 7.5 mg/dl (8.4-10.2); Carbon Dioxide 21 mmol/L (22.0-30.0); Chloride 99 mmol/L (98-107); Creatinine Clearance Estimated 55 mL/min (50-200); Estimated Glomerular Filt Rate 65 ml/min (>60); GFR (African American) 79 ML/MIN (>60); Glucose 108 mg/dl (74-100); Potassium 3.6 mmoL/L (3.5-5.1); Sodium 135 mmol/L (136-145)
--- NOTE | 2022-09-02 15:18 | PC.NURSE ---
pts bed alarm is on and functioning. pt has made multiple attempts to get up independently. his gait is unsteady and he is confused.
--- NOTE | 2022-09-02 15:25 | PC.NURSE ---
sputum specimen collected
[2022-09-02 15:37] VITALS: BP 103/51; PULSE 77; RESP 18; TEMP 36.6; O2SAT 95
--- NOTE | 2022-09-02 17:24 | PC.NURSE ---
pt has tolerated RA well this afternoon. He denies any SOA. saturation is stable >95%. confusion continues however pt is easily redirectable. bed alarm still in place.
[2022-09-02 20:00] VITALS: BP 92/48; PULSE 80; RESP 18; TEMP 37.7; O2SAT 92
[2022-09-03] VITALS (7 sets, daily range): BP systolic 117–133; BP diastolic 53–64; PULSE 72–88; RESP 16–18; TEMP 36.5–37.3; O2SAT 93–98; BMI 25.6
--- NOTE | 2022-09-03 03:58 | PC.NURSE ---
PATIENT HAS RESTED IN BED THIS SHIFT. MEDICATED WITH TYLENOL FOR RLE PAIN AT SHIFT CHANGE, NO FURTHER C/O PAIN VOICED. REMAINS MILDLY CONFUSED.
[2022-09-03 08:17] LABS: Blood Urea Nitrogen 28 mg/dl (9-20); Calcium 7.4 mg/dl (8.4-10.2); Carbon Dioxide 22 mmol/L (22.0-30.0); Chloride 101 mmol/L (98-107); Creatinine Clearance Estimated 64 mL/min (50-200); Estimated Glomerular Filt Rate 94 ml/min (>60); GFR (African American) 114 ML/MIN (>60); Glucose 98 mg/dl (74-100); Sodium 137 mmol/L (136-145)
--- NOTE | 2022-09-03 08:47 | EXP.ACUTE.PN ---
Subjective *Date: 09/03/22 *Time: 08:47 Interval history: Patient does not feel good because he had significant diarrhea and is actually been incontinent of stool. He reports that it started almost as soon as he got into the hospital. Denies blood. Denies fevers. Breathing is better, he was able to cough up a fairly significant mucus amount earlier this morning from his chest. Medical Exam Vital signs and Labs for Last 24 Hours: Vital Signs Temp Pulse Resp BP Pulse Ox 09/03/22 07:58 98.1 F 78 16 124/62 93 L 09/03/22 06:50 98 09/03/22 04:00 99.2 F 88 18 124/64 94 L 09/02/22 20:00 92 L 09/02/22 20:00 99.9 F H 80 18 92/48 L 92 L 09/02/22 15:37 97.8 F 77 18 103/51 L 95 Intake and Output 09/02/22 09/03/22 09/03/22 19:59 03:59 11:59 Intake Total 480 / 2698 2218 / 2698 Output Total 0 / 0 0 / 0 0 / 0 Balance 480 / 2698 0 / 2698 2218 / 2698 Intake: Intake, Oral Amount 480 / 540 60 / 540 Intake, Total IV Amount 2158 / 2158 0.9 % Sodium Chloride 1000ML 1, 1719 / 1719 000 ml @ 100 mls/hr IV .Q10H [facility] Rx#:[id number] Clindamycin Phosphate/D5w 900 439 / 439 mg In 50 ml @ 100 mls/hr IV Q8H [facility] Rx#:[id number] Output: Output, Urine Amount 0 / 0 0 / 0 0 / 0 Other: Number of Unmeasured Voids 1 0 1 Number of Bowel Movements 1 2 1 Weight 159 lb 8 oz Patient Weight 09/03/22 11:59 Weight 159 lb 8 oz Laboratory Results - last 24 hr 09/02/22 09:35: WBC 9.7 D, RBC 3.62 L, Hgb 10.2 L, Hct 32.7 L, MCV 90.3, MCH 28.1, MCHC 31.1 L, RDW 18.2 H, Plt Count 175 D, MPV 8.2, Neut % (Auto) 92.0 H, Lymph % (Auto) 4.6 L, [place] % (Auto) 2.4, Eos % (Auto) 0.8, Baso % (Auto) 0.3, Neut # (Auto) 9.0 H, Lymph # (Auto) 0.4 L, [place] # (Auto) 0.2, Eos # (Auto) 0.1, Baso # (Auto) 0.0, Total Counted 100, Neutrophils % (Manual) 89 H, Lymphocytes % (Manual) 8 L, Monocytes % (Manual) 3, Platelet Estimate Normal, Hypochromasia 1+, Anisocytosis 1+ 09/02/22 09:35: Sodium 135 L, Potassium 3.6 D, Chloride 99, Carbon Dioxide 21 L, Anion Gap 18.6 H, BUN 34 H D, Creatinine 1.10 D, Estimated Creat Clear 55, Estimated GFR 65, Est GFR ( Amer) 79 D, Glucose 108 H D, Calcium 7.5 L 09/03/22 07:37: Sodium 137, Potassium 3.0 L, Chloride 101, Carbon Dioxide 22, Anion Gap 17.0 H, BUN 28 H, Creatinine 0.80 D, Estimated Creat Clear 64, Estimated GFR 94, Est GFR ( Amer) 114 D, Glucose 98, Calcium 7.4 L I & O for Labs for Last 24 Hours: Intake & Output 08/31/22 09/01/22 09/02/22 09/03/22 11:59 11:59 11:59 11:59 Intake Total 3744 / 3744 2698 / 2698 Output Total 50 / 50 0 / 0 Balance 3694 / 3694 2698 / 2698 Weight 150 lb 150 lb 11.2 oz 159 lb 8 oz Microbiology Reports for the Last 24 Hours: Microbiology 09/02/22 00:00 Sputum - Expectorated Sputum Gram Stain - Final 09/02/22 00:00 Sputum - Expectorated Sputum Sputum Culture - Preliminary Gram Negative Rods 09/01/22 10:30 Blood Blood Culture - Preliminary Gram Positive Cocci 09/01/22 10:30 Blood Blood Culture - Preliminary Gram Positive Cocci Constitutional: Present no acute distress Respiratory: Present rhonchi and normal respiratory effort Comment:: In right base., Good air movement, no crackles Cardiac: Present Reg Rate and Rhythm GI: Present normal bowel sounds; Absent tenderness Extremities: Present normal inspection and full ROM Skin: Present intact and erythema Comment:: On right holt is improving. No spreading redness, redness area is smaller and less intense Neuro: Present Grossly Intact and moves all extremities Assessment and Plan *Assessment and plan (1) Cellulitis of lower leg: Status: Acute Category: Medical Code(s): L03.119 - Cellulitis of unspecified part of limb (2) LO (acute kidney injury): Status: Acute Category: Medical Code(s): N17.9 -
[2022-09-03 11:34] LABS: Adenovirus F 40/41, stool Not Detected (NotDetected); Astrovirus Not Detected (NotDetected); Campylobacter Not Detected (NotDetected); Clostridium Difficile A/B, PCR Not Detected (NotDetected); Cryptosporidium Not Detected (NotDetected); Cyclospora Cayetanesis Not Detected (NotDetected); Entamoeba histolytica Not Detected (NotDetected); Enteroaggregative E coli Not Detected (NotDetected); Enteropathogenic E coli Not Detected (NotDetected); Enterotoxigenic E coli Not Detected (NotDetected); Giardia lamblia Not Detected (NotDetected); Plesimonas Shigalloides, PCR Not Detected (NotDetected); Rotavirus A Not Detected (NotDetected); Salmonella, PCR Not Detected (NotDetected); Sapovirus Not Detected (NotDetected); Shiga-like toxin E coli Not Detected (NotDetected); Shigella Enterovasive E coli Not Detected (NotDetected); Vibrio Cholerae Not Detected (NotDetected); Vibrio, PCR Not Detected (NotDetected); Yersinia Entercolitica, PCR Not Detected (NotDetected)
[2022-09-03 13:25] LABS: Norovirus Detected (NotDetected)
--- NOTE | 2022-09-03 18:40 | PC.NURSE ---
MEDICATED WITH TYLENOL AND MOTRIN ONE TIME EACH THIS SHIFT WITH GOOD EFFECTIVENESS. DIARRHEA PANEL POSITIVE FOR [place]. NO ACUTE CHANGES
[2022-09-04] VITALS: BP 142/71; PULSE 82; RESP 18; TEMP 36.7; O2SAT 96
[2022-09-04 04:00] VITALS: BP 110/45; BP 110/46; PULSE 74; RESP 16; TEMP 36.9; O2SAT 93; BMI 25.1
[2022-09-04 07:11] LABS: Anion Gap 10.4 mEq/L (5-15); Blood Urea Nitrogen 18 mg/dl (9-20); Calcium 7.8 mg/dl (8.4-10.2); Carbon Dioxide 20 mmol/L (22.0-30.0); Chloride 112 mmol/L (98-107); Creatinine Clearance Estimated 63 mL/min (50-200); Estimated Glomerular Filt Rate 131 ml/min (>60); GFR (African American) 159 ML/MIN (>60); Glucose 83 mg/dl (74-100); Potassium 3.4 mmoL/L (3.5-5.1); Sodium 139 mmol/L (136-145)
[2022-09-04 07:12] LABS: Basophils % 0.1 % (0.1-2.0); Eosinophils # 0.1 K/mm3 (0.0-0.4); Eosinophils % 0.4 % (0.1-12.0); Hematocrit 29.5 % (42.0-52.0); Hemoglobin 9.4 g/dL (14.1-18.0); Lymphocytes # 0.8 K/mm3 (0.7-4.5); Lymphocytes % 5.9 % (10-50); Mean Corpuscular HGB Conc 31.8 g/dL (31.8-35.4); Mean Corpuscular Hemoglobin 27.7 pg (27.0-31.2); Mean Platelet Volume 8.9 fl (7.4-10.4); Monocytes # 0.6 K/mm3 (0.1-1.0); Neutrophils # 12.4 K/mm3 (1.8-7.8); Neutrophils % 89.7 % (37.0-80.0); Platelet Count 156 K/mm3 (142-424); Red Blood Count 3.39 M/mm3 (4.60-6.20); Red Cell Distribution Width 18.3 % (11.5-17.5); White Blood Count 13.9 K/mm3 (4.8-10.8)
[2022-09-04 07:20] LABS: MANUAL DIFFERENTIAL MANUAL DIFFERENTIAL (MANUAL DIFF)
[2022-09-04 08:00] VITALS: BP 166/67; PULSE 84; RESP 20; TEMP 36.4; O2SAT 96
--- NOTE | 2022-09-04 08:50 | EXP.ACUTE.PN ---
Subjective *Date: 09/04/22 *Time: 08:50 Interval history: Patient's main concern today is his diarrhea. He is very embarrassed about his need to have nurses help clean him after his liquid stools and he reports that he is very anxious about it. His also endorses that he is very anxious. Otherwise he is afebrile, feels like his breathing is better and has good urine output. Medical Exam Vital signs and Labs for Last 24 Hours: Vital Signs Temp Pulse Resp BP Pulse Ox 09/04/22 04:00 98.4 F 74 16 110/45 L 93 L 09/04/22 00:00 98.0 F 82 18 142/71 H 96 09/04/22 04:00 98.4 F 74 16 110/46 L 93 L 09/03/22 20:00 98.2 F 73 18 133/63 97 09/03/22 20:00 95 09/03/22 15:08 97.8 F 72 16 122/53 L 94 L 09/03/22 11:04 97.7 F 74 18 117/58 L 97 09/03/22 10:14 17 Intake and Output 09/03/22 09/04/22 09/04/22 19:59 03:59 11:59 Intake Total 480 / 1905 1425 / 1905 Output Total 0 / 0 0 / 0 0 / 0 Balance 480 / 1905 0 / 1905 1425 / 1905 Intake: Intake, Oral Amount 480 / 480 Intake, Total IV Amount 1425 / 1425 0.9 % Sodium Chloride 1000ML 1, 1425 / 1425 000 ml @ 100 mls/hr IV .Q10H [facility] Rx#:[id number] Output: Output, Urine Amount 0 / 0 0 / 0 0 / 0 Other: Number of Unmeasured Voids 1 1 1 Number of Bowel Movements 1 1 Weight 156 lb 5 oz Patient Weight 09/04/22 11:59 Weight 156 lb 5 oz Laboratory Results - last 24 hr 09/03/22 11:30: Stl Aeromonas (PCR) Not detected, Stl C. cayetanensis PCR Not detected, Stool Rotavirus (PCR) Not detected, Stl Adenov F 40/41 PCR Not detected, Stool Astrovirus (PCR) Not detected, Stool Campylobacter PCR Not detected, Stl C.difficile Tox PCR Not detected, Stool Cryptosporidium PCR Not detected, Stl E.coli Shiga Tox PCR Not detected, Stool E coli O157 PCR Not detected, Stl Enterotoxigenic E PCR Not detected, Stool EPEC (PCR) Not detected, Stool EAEC (PCR) Not detected, Stl E. histolytica PCR Not detected, Stool Giardia Lamblia PCR Not detected, Stool Salmonella PCR Not detected, Stool Sapovirus (PCR) Not detected, Stl P. shigelloides PCR Not detected, Stl Shigella/EIEC PCR Not detected, St Y.enterocolitica PCR Not detected, Stool Vibrio (PCR) Not detected, Stl Vibrio cholerae PCR Not detected, Stl Norovirus GI/GII PCR Detected A 09/04/22 06:30: WBC 13.9 H D, RBC 3.39 L, Hgb 9.4 L, Hct 29.5 L, MCV 87.0, MCH 27.7, MCHC 31.8, RDW 18.3 H, Plt Count 156, MPV 8.9, Neut % (Auto) 89.7 H, Lymph % (Auto) 5.9 L, [place] % (Auto) 4.0, Eos % (Auto) 0.4, Baso % (Auto) 0.1, Neut # (Auto) 12.4 H, Lymph # (Auto) 0.8, [place] # (Auto) 0.6, Eos # (Auto) 0.1, Baso # (Auto) 0.0 09/04/22 06:30: Sodium 139, Potassium 3.4 L, Chloride 112 H, Carbon Dioxide 20 L, Anion Gap 10.4, BUN 18 D, Creatinine 0.60 L D, Estimated Creat Clear 63, Estimated GFR 131, Est GFR ( Amer) 159 D, Glucose 83, Calcium 7.8 L I & O for Labs for Last 24 Hours: Intake & Output 09/01/22 09/02/22 09/03/22 09/04/22 11:59 11:59 11:59 11:59 Intake Total 3744 / 3744 2697 / 2697 Output Total 50 / 50 0 / 0 0 / 0 Balance 3694 / 3694 2697 / 2697 Weight 150 lb 150 lb 11.2 oz 159 lb 8 oz 156 lb 5 oz Microbiology Reports for the Last 24 Hours: Microbiology 09/03/22 10:10 Sputum - Expectorated Sputum Gram Stain - Final 09/03/22 10:10 Sputum - Expectorated Sputum Sputum Culture - Preliminary 09/02/22 00:00 Sputum - Expectorated Sputum Gram Stain - Final 09/02/22 00:00 Sputum - Expectorated Sputum Sputum Culture - Preliminary Gram Negative Rods 09/01/22 10:30 Blood Blood Culture - Preliminary Gram Positive Cocci 09/01/22 10:30 Blood Blood Culture - Preliminary Gram Positive Cocci Constitutional: Present no acute distress Respiratory: Present rhonchi and normal respiratory effort Comment:: In right base., Good air movement, no crackles Cardiac:
[2022-09-04 08:55] LABS: Lymphocytes % 8 % (10-50); Monocytes % 5 % (2-9); Neutrophils % 87 % (42-76); Platelet Estimate Normal; RBC Morphology Normal; Total Cells Counted 100
--- NOTE | 2022-09-04 09:00 | EXP.PHA.CONS ---
Pharmacy Consult Date: 09/04/22 Time: 09:00 Referring provider: DR. HOFF Reason for Consult:: VANCOMYCIN DOSING Allergies Allergy/AdvReac Type Severity Reaction Status Date / Time Penicillins Allergy Intermediate I-ITCHING; Verified 07/19/22 09:17 SWELLING Antihistamines - Ethanolamine Allergy Unknown Unknown Verified 07/19/22 09:17 allergy reaction [place] nut Allergy Rash Verified 09/01/22 13:20 doxycycline AdvReac Mild Rash Verified 07/19/22 09:17 Home Medications Medication Instructions Recorded Confirmed Type albuterol sulfate 90 mcg/actuation 2 puff inhalation Q4HP PRN 08/27/17 09/01/22 History aerosol inhaler (Ventolin HFA) Shortness Of Breath aspirin 81 mg tablet,delayed 81 mg PO DAILY HEART HEALTH 08/27/17 09/01/22 History release (Adult Low Dose Aspirin) folic acid 1 mg tablet 1 mg PO DAILY Supplement 08/27/17 09/01/22 History atorvastatin 80 mg tablet 80 mg PO DAILY HLD #90 tabs 03/27/22 09/01/22 Rx albuterol sulfate 1.25 mg/3 mL 1.25 mg inhalation Q6HP PRN 07/10/22 09/01/22 History solution for nebulization Shortness Of Breath fluticasone propionate 50 2 spray intranasal DAILY allergies 08/18/22 09/01/22 History mcg/actuation nasal spray,suspension (Flonase Allergy Relief) isosorbide mononitrate 30 mg 30 mg PO DAILY Hypertension 08/18/22 09/01/22 History tablet,extended release 24 hr metoprolol succinate 100 mg 100 mg PO DAILY Hypertension 08/18/22 09/01/22 History tablet,extended release 24 hr clopidogrel 75 mg tablet 75 mg PO DAILY PLATELET INHIBITOR 09/01/22 09/01/22 History fluticasone fur. 100 mcg-umeclid 1 inh inhalation DAILY COPD 09/01/22 09/01/22 History 62.5 mcg-vilant 25 mcg inhalat.powder (Trelegy Ellipta) mirtazapine 15 mg tablet 7.5 mg PO HS MOOD 09/01/22 09/01/22 History pantoprazole 40 mg tablet,delayed 40 mg PO DAILY Acid reflux 09/01/22 09/01/22 History release New Prescriptions to Start Prescriptions: Height: 1.68 m Weight: 70.902 kg Laboratory Results:: Laboratory Results - last 24 hr 09/03/22 11:30: Stl Aeromonas (PCR) Not detected, Stl C. cayetanensis PCR Not detected, Stool Rotavirus (PCR) Not detected, Stl Adenov F 40/41 PCR Not detected, Stool Astrovirus (PCR) Not detected, Stool Campylobacter PCR Not detected, Stl C.difficile Tox PCR Not detected, Stool Cryptosporidium PCR Not detected, Stl E.coli Shiga Tox PCR Not detected, Stool E coli O157 PCR Not detected, Stl Enterotoxigenic E PCR Not detected, Stool EPEC (PCR) Not detected, Stool EAEC (PCR) Not detected, Stl E. histolytica PCR Not detected, Stool Giardia Lamblia PCR Not detected, Stool Salmonella PCR Not detected, Stool Sapovirus (PCR) Not detected, Stl P. shigelloides PCR Not detected, Stl Shigella/EIEC PCR Not detected, St Y.enterocolitica PCR Not detected, Stool Vibrio (PCR) Not detected, Stl Vibrio cholerae PCR Not detected, Stl Norovirus GI/GII PCR Detected A 09/04/22 06:30: WBC 13.9 H D, RBC 3.39 L, Hgb 9.4 L, Hct 29.5 L, MCV 87.0, MCH 27.7, MCHC 31.8, RDW 18.3 H, Plt Count 156, MPV 8.9, Neut % (Auto) 89.7 H, Lymph % (Auto) 5.9 L, [place] % (Auto) 4.0, Eos % (Auto) 0.4, Baso % (Auto) 0.1, Neut # (Auto) 12.4 H, Lymph # (Auto) 0.8, [place] # (Auto) 0.6, Eos # (Auto) 0.1, Baso # (Auto) 0.0, Total Counted 100, Neutrophils % (Manual) 87 H, Lymphocytes % (Manual) 8 L, Monocytes % (Manual) 5, Platelet Estimate Normal, RBC Morphology Normal 09/04/22 06:30: Sodium 139, Potassium 3.4 L, Chloride 112 H, Carbon Dioxide 20 L, Anion Gap 10.4, BUN 18 D, Creatinine 0.60 L D, Estimated Creat Clear 63, Estimated GFR 131, Est GFR ( Amer) 159 D, Glucose 83, Calcium 7.8 L Medical History: Medical History Abdominal bruit Allergic rhinitis CAD (coronary artery disease) Cardiac murmur Carotid artery disease Chronic cough Claudication COPD (chronic obstructive pulmonary disease) COPD exacerbation COPD mixed type Dyspnea on exertion Hearing Loss Hemoptysis Impacted cerumen Laceration of
[2022-09-04 10:47] VITALS: BMI 25.1
[2022-09-04 12:00] VITALS: BP 125/61; PULSE 85; RESP 20; TEMP 37.1; O2SAT 99
[2022-09-04 15:57] VITALS: BP 142/70; PULSE 79; RESP 18; TEMP 36.9; O2SAT 96
--- NOTE | 2022-09-04 18:27 | PC.NURSE ---
pt has 20g RFA with NS at 100ml/hr. prior 20g in the LFA infiltrated, little swelling noted, with no c/o pain per pt. A&Ox4. RA, Had 2L NC for 30 minutes near 1100 r/t to soa/anxiety after ambulating back from the bathroom. Besson recommended a lower residue diet and lamotil r/t frequent episodes of diarrhea, pt has had a poor appetite. ambulates with assist to the bathroom. 1+ pitting edema and redness noted in the RLE.
[2022-09-04 20:00] VITALS: BP 144/64; PULSE 83; RESP 20; TEMP 37.1; O2SAT 94
[2022-09-05] VITALS (10 sets, daily range): BP systolic 130–177; BP diastolic 64–77; PULSE 70–96; RESP 16–20; TEMP 36.4–37.1; O2SAT 88–100; BMI 25.7
--- NOTE | 2022-09-05 04:29 | PC.NURSE ---
Pt calls out stating he feels SOA, RA sat 88% stating he had just used the urinal. Pt placed on 2 L nc, sat up to 96%. Rechecked pt after 30 mins and removed nc, RA sat 90% and pt stating he feels SOA. 2 L nc reapplied at this time.
[2022-09-05 06:11] LABS: Basophils % 0.3 % (0.1-2.0); Eosinophils # 0.1 K/mm3 (0.0-0.4); Eosinophils % 0.4 % (0.1-12.0); Hematocrit 30.3 % (42.0-52.0); Hemoglobin 9.3 g/dL (14.1-18.0); Lymphocytes # 0.6 K/mm3 (0.7-4.5); Lymphocytes % 5.2 % (10-50); Mean Corpuscular HGB Conc 30.6 g/dL (31.8-35.4); Mean Corpuscular Hemoglobin 28.5 pg (27.0-31.2); Mean Corpuscular Volume 92.9 fl (80-94); Mean Platelet Volume 8.8 fl (7.4-10.4); Monocytes # 0.6 K/mm3 (0.1-1.0); Monocytes % 5.1 % (1.7-9.3); Neutrophils # 9.8 K/mm3 (1.8-7.8); Neutrophils % 88.9 % (37.0-80.0); Platelet Count 114 K/mm3 (142-424); Red Blood Count 3.27 M/mm3 (4.60-6.20); Red Cell Distribution Width 18.3 % (11.5-17.5); White Blood Count 11.1 K/mm3 (4.8-10.8)
[2022-09-05 06:23] LABS: MANUAL DIFFERENTIAL MANUAL DIFFERENTIAL (MANUAL DIFF)
[2022-09-05 06:31] LABS: Anion Gap 19.7 mEq/L (5-15); Blood Urea Nitrogen 12 mg/dl (9-20); Calcium 7.5 mg/dl (8.4-10.2); Carbon Dioxide 17 mmol/L (22.0-30.0); Chloride 106 mmol/L (98-107); Creatinine Clearance Estimated 65 mL/min (50-200); Estimated Glomerular Filt Rate 131 ml/min (>60); GFR (African American) 159 ML/MIN (>60); Glucose 68 mg/dl (74-100); Potassium 3.7 mmoL/L (3.5-5.1); Sodium 139 mmol/L (136-145)
[2022-09-05 06:55] LABS: Anisocytosis 1+; Hypochromasia 1+; Lymphocytes % 4 % (10-50); Macrocytosis 1+; Monocytes % 6 % (2-9); Neutrophils % 90 % (42-76); Ovalocytes 1+; Platelet Estimate Slight Decrease; Total Cells Counted 100
--- NOTE | 2022-09-05 08:21 | CA_ITS ---
FINAL REPORT TECHNIQUE: Color Doppler, duplex Doppler and compression sonography of the right lower extremity venous system was performed. CLINICAL HISTORY: leg swelling, redness, erythema knee down, Lung CA Pt on lovenox. Venous doppler negative COMPARISON: 09/01/2022 FINDINGS: There is no evidence of deep venous thrombosis from the level of the groin to the calf. There is superficial venous thrombus of a venous varicosity near the ankle. The veins are otherwise patent and compressible. IMPRESSION: No evidence of deep venous thrombosis right lower extremity. Reviewed, Interpreted and Dictated by Karri Roldan III, MD Transcribed by Bernadette Nolasco Authenticated and [facility]
--- NOTE | 2022-09-05 08:27 | EXP.ACUTE.PN ---
Subjective *Date: 09/05/22 *Time: 08:27 Interval history: Overall patient is states that he feels some better, did require some oxygen through the night because of low sats and some dyspnea. He notes this has improved. He is little concerned about the appearance of his right leg. Medical Exam Vital signs and Labs for Last 24 Hours: Vital Signs Temp Pulse Resp BP Pulse Ox 09/05/22 06:14 99 09/05/22 04:00 98.1 F 96 H 20 177/77 H 96 09/05/22 04:25 95 09/05/22 04:20 90 L 09/05/22 03:50 88 L 09/05/22 00:00 95 09/04/22 20:00 94 L 09/05/22 00:00 97.5 F L 79 18 151/71 H 95 09/04/22 20:00 98.7 F 83 20 144/64 H 94 L 09/04/22 15:57 98.4 F 79 18 142/70 H 96 09/04/22 12:00 98.8 F 85 20 125/61 99 Intake and Output 09/04/22 09/05/22 09/05/22 19:59 03:59 11:59 Intake Total 1036 / 1036 Output Total 0 / 1000 200 / 1000 800 / 1000 Balance 1036 / 36 -200 / 36 -800 / 36 Intake: Intake, Oral Amount 480 / 480 Intake, Total IV Amount 556 / 556 0.9 % Sodium Chloride 1000ML 1, 256 / 256 000 ml @ 100 mls/hr IV .Q10H RADHA Rx#:[id number] Ceftriaxone 1 gm 1 gm In 0.9 % 50 / 50 Sodium Chloride 50 ml @ 100 mls /hr IV DAILY RADHA Rx#:[id number] Vancomycin/Water For Inj (Peg) 250 / 250 1.25 gm In 250 ml @ 125 mls/hr IV Q18H RADHA Rx#:[id number] Output: Output, Urine Amount 0 / 1000 200 / 1000 800 / 1000 Other: Number of Unmeasured Voids 1 Number of Bowel Movements 4 Weight 160 lb 6.4 oz Patient Weight 09/05/22 11:59 Weight 160 lb 6.4 oz Laboratory Results - last 24 hr 09/04/22 06:30: Total Counted 100, Neutrophils % (Manual) 87 H, Lymphocytes % (Manual) 8 L, Monocytes % (Manual) 5, Platelet Estimate Normal, RBC Morphology Normal 09/05/22 05:27: WBC 11.1 H, RBC 3.27 L, Hgb 9.3 L, Hct 30.3 L, MCV 92.9, MCH 28.5, MCHC 30.6 L, RDW 18.3 H, Plt Count 114 L D, MPV 8.8, Neut % (Auto) 88.9 H, Lymph % (Auto) 5.2 L, [place] % (Auto) 5.1, Eos % (Auto) 0.4, Baso % (Auto) 0.3, Neut # (Auto) 9.8 H, Lymph # (Auto) 0.6 L, [place] # (Auto) 0.6, Eos # (Auto) 0.1, Baso # (Auto) 0.0, Total Counted 100, Neutrophils % (Manual) 90 H, Lymphocytes % (Manual) 4 L, Monocytes % (Manual) 6, Platelet Estimate Slight decrease, Hypochromasia 1+, Anisocytosis 1+, Macrocytosis 1+, Ovalocytes 1+ 09/05/22 05:27: Sodium 139, Potassium 3.7, Chloride 106, Carbon Dioxide 17 L, Anion Gap 19.7 H, BUN 12 D, Creatinine 0.60 L, Estimated Creat Clear 65, Estimated GFR 131, Est GFR ( Amer) 159, Glucose 68 L, Calcium 7.5 L I & O for Labs for Last 24 Hours: Intake & Output 09/02/22 09/03/22 09/04/22 09/05/22 11:59 11:59 11:59 11:59 Intake Total 3744 / 3744 2698 / 2698 2385 / 2385 1036 / 1036 Output Total 50 / 50 0 / 0 0 / 0 1000 / 1000 Balance 3694 / 3694 2698 / 2698 2385 / 2385 36 / 36 Weight 150 lb 11.2 oz 159 lb 8 oz 156 lb 4.924 oz 160 lb 6.4 oz Microbiology Reports for the Last 24 Hours: Microbiology 09/03/22 10:10 Sputum - Expectorated Sputum Gram Stain - Final 09/03/22 10:10 Sputum - Expectorated Sputum Sputum Culture - Preliminary 09/02/22 00:00 Sputum - Expectorated Sputum Gram Stain - Final 09/02/22 00:00 Sputum - Expectorated Sputum Sputum Culture - Final Escherichia coli 09/01/22 10:30 Blood Blood Culture - Preliminary Strep pyogenes (grp a) 09/01/22 10:30 Blood Blood Culture - Preliminary Strep pyogenes (grp a) Comment:: Patient is alert. Talkative. Pleasant. Anterior lung nation are clear, he is has some rhonchi in the posterior nation. Heart rate regular. Abdomen soft. His right leg does have increasing redness more than yesterday, with a red spot on the medial aspect of the right heel just below the right malleolus. It is somewhat tender. Assessment and Plan *Assessment and plan (1) Cellulitis of lower le
--- NOTE | 2022-09-05 08:52 | EXP.PHA.PN ---
Subjective *Date: 09/05/22 *Time: 08:52 Medical Exam Vital signs and Labs for Last 24 Hours: Vital Signs Temp Pulse Resp BP Pulse Ox 09/05/22 08:00 97.7 F 89 18 176/76 H 99 09/05/22 06:14 99 09/05/22 04:00 98.1 F 96 H 20 177/77 H 96 09/05/22 04:25 95 09/05/22 04:20 90 L 09/05/22 03:50 88 L 09/05/22 00:00 95 09/04/22 20:00 94 L 09/05/22 00:00 97.5 F L 79 18 151/71 H 95 09/04/22 20:00 98.7 F 83 20 144/64 H 94 L 09/04/22 15:57 98.4 F 79 18 142/70 H 96 09/04/22 12:00 98.8 F 85 20 125/61 99 Intake and Output 09/04/22 09/05/22 09/05/22 23:59 07:59 15:59 Intake Total 796 / 2941 60 / 60 Output Total 0 / 200 1000 / 1000 Balance 796 / 2741 -1000 / -940 60 / -940 Intake: Intake, Oral Amount 240 / 960 60 / 60 Intake, Total IV Amount 6 1980 0.9 % Sodium Chloride 1000ML 1, 256 / 1681 000 ml @ 100 mls/hr IV .Q10H RADHA Rx#:[id number] Ceftriaxone 1 gm 1 gm In 0.9 % 50 / 50 Sodium Chloride 50 ml @ 100 mls /hr IV DAILY RADHA Rx#:[id number] Vancomycin/Water For Inj (Peg) 250 / 250 1.25 gm In 250 ml @ 125 mls/hr IV Q18H RADHA Rx#:[id number] Output: Output, Urine Amount 0 / 200 1000 / 1000 Other: Weight 72.756 kg Patient Weight 09/05/22 23:59 Weight 72.756 kg Laboratory Results - last 24 hr 09/04/22 06:30: Total Counted 100, Neutrophils % (Manual) 87 H, Lymphocytes % (Manual) 8 L, Monocytes % (Manual) 5, Platelet Estimate Normal, RBC Morphology Normal 09/05/22 05:27: WBC 11.1 H, RBC 3.27 L, Hgb 9.3 L, Hct 30.3 L, MCV 92.9, MCH 28.5, MCHC 30.6 L, RDW 18.3 H, Plt Count 114 L D, MPV 8.8, Neut % (Auto) 88.9 H, Lymph % (Auto) 5.2 L, [place] % (Auto) 5.1, Eos % (Auto) 0.4, Baso % (Auto) 0.3, Neut # (Auto) 9.8 H, Lymph # (Auto) 0.6 L, [place] # (Auto) 0.6, Eos # (Auto) 0.1, Baso # (Auto) 0.0, Total Counted 100, Neutrophils % (Manual) 90 H, Lymphocytes % (Manual) 4 L, Monocytes % (Manual) 6, Platelet Estimate Slight decrease, Hypochromasia 1+, Anisocytosis 1+, Macrocytosis 1+, Ovalocytes 1+ 09/05/22 05:27: Sodium 139, Potassium 3.7, Chloride 106, Carbon Dioxide 17 L, Anion Gap 19.7 H, BUN 12 D, Creatinine 0.60 L, Estimated Creat Clear 65, Estimated GFR 131, Est GFR ( Amer) 159, Glucose 68 L, Calcium 7.5 L I & O for Labs for Last 24 Hours: Intake & Output 09/02/22 09/03/22 09/04/22 09/05/22 23:59 23:59 23:59 23:59 Intake Total 2649 / 2649 2698 / 2698 2941 / 2941 60 / 60 Output Total 0 / 0 0 / 0 0 / 200 1000 / 1000 Balance 2649 / 2649 2698 / 2698 2941 / 2741 -940 / -940 Weight 68.356 kg 72.348 kg 70.9 kg 72.756 kg Microbiology Reports for the Last 24 Hours: Microbiology 09/03/22 10:10 Sputum - Expectorated Sputum Gram Stain - Final 09/03/22 10:10 Sputum - Expectorated Sputum Sputum Culture - Preliminary 09/02/22 00:00 Sputum - Expectorated Sputum Gram Stain - Final 09/02/22 00:00 Sputum - Expectorated Sputum Sputum Culture - Final Escherichia coli 09/01/22 10:30 Blood Blood Culture - Preliminary Strep pyogenes (grp a) 09/01/22 10:30 Blood Blood Culture - Preliminary Strep pyogenes (grp a) The patient's infection will respond to the chosen ABx?: Yes (GROUP B STREP IN BLOOD CULTURE X2, SENSITIVE.) Is the patient receiving the right drug, dose, and route?: Yes Could a more targeted ABx be ordered?: No
--- NOTE | 2022-09-05 16:28 | PC.NURSE ---
Pt was SOB this AM upon assessment. With breath sounds deminished and crackles. Dr Montes was notifed and fluids were stopped and IV lasix was given. Pt has since voided 3000ml and back on Room air. Pt states he feels much better and not Short of Breath. He is stating around 93 on RA upon assesment. Pt is resting comfortable in bed this afternoon.
[2022-09-05 22:10] LABS: Vancomycin,Trough 7.4 ug/mL (5.0-10.0)
--- NOTE | 2022-09-05 22:55 | PC.NURSE ---
Cynthia Jacobo states it is ok to give 2200 dose Vancomycin at this time.
[2022-09-06] VITALS: BP 118/57; PULSE 65; RESP 16; TEMP 36.4; O2SAT 90
[2022-09-06 02:53] LABS: Vancomycin,Peak 14.6 ug/ml (11-39)
[2022-09-06 04:00] VITALS: BP 141/72; PULSE 68; RESP 16; TEMP 36.7; O2SAT 91; BMI 24.4
--- NOTE | 2022-09-06 05:52 | PC.NURSE ---
Pt has c/o pain in his right leg 2x t/o shift requiring prn medication. Pt has remained on ra t/o shift with sats >90%. Call light within reach.
[2022-09-06 06:43] LABS: Basophils % 0.2 % (0.1-2.0); Eosinophils # 0.1 K/mm3 (0.0-0.4); Eosinophils % 1.5 % (0.1-12.0); Hematocrit 28.3 % (42.0-52.0); Hemoglobin 9.4 g/dL (14.1-18.0); Lymphocytes # 0.8 K/mm3 (0.7-4.5); Lymphocytes % 8.7 % (10-50); Mean Corpuscular HGB Conc 33.3 g/dL (31.8-35.4); Mean Corpuscular Hemoglobin 28.1 pg (27.0-31.2); Mean Corpuscular Volume 84.3 fl (80-94); Mean Platelet Volume 8.9 fl (7.4-10.4); Monocytes # 0.7 K/mm3 (0.1-1.0); Monocytes % 7.8 % (1.7-9.3); Neutrophils # 7.6 K/mm3 (1.8-7.8); Neutrophils % 81.8 % (37.0-80.0); Platelet Count 146 K/mm3 (142-424); Red Blood Count 3.36 M/mm3 (4.60-6.20); Red Cell Distribution Width 18.7 % (11.5-17.5); White Blood Count 9.4 K/mm3 (4.8-10.8)
[2022-09-06 07:03] LABS: Anion Gap 16.4 mEq/L (5-15); Blood Urea Nitrogen 12 mg/dl (9-20); Calcium 7.8 mg/dl (8.4-10.2); Carbon Dioxide 24 mmol/L (22.0-30.0); Chloride 99 mmol/L (98-107); Creatinine Clearance Estimated 61 mL/min (50-200); Estimated Glomerular Filt Rate 131 ml/min (>60); GFR (African American) 159 ML/MIN (>60); Glucose 76 mg/dl (74-100); Potassium 3.4 mmoL/L (3.5-5.1); Sodium 136 mmol/L (136-145)
[2022-09-06 08:00] VITALS: BP 166/84; PULSE 80; RESP 18; TEMP 36.7; O2SAT 93
--- NOTE | 2022-09-06 08:22 | EXP.ACUTE.PN ---
Subjective *Date: 09/06/22 *Time: 08:22 Interval history: Patient feels very good. His breathing is much better after diuresis yesterday. Slept well and he and his report that his mental status is back to normal. Continues to have right-sided leg swelling but less pain. Medical Exam Vital signs and Labs for Last 24 Hours: Vital Signs Temp Pulse Resp BP Pulse Ox FiO2 09/06/22 08:00 98.1 F 80 18 166/84 H 93 L 09/06/22 04:00 98.1 F 68 16 141/72 H 91 L 09/06/22 00:00 90 L 09/06/22 00:00 97.6 F 65 16 118/57 L 90 L 09/05/22 20:00 98.6 F 70 16 155/67 H 96 09/05/22 20:23 28 09/05/22 16:00 98.8 F 78 18 130/64 94 L 09/05/22 12:00 98.3 F 82 20 146/77 H 100 Intake and Output 09/05/22 09/06/22 09/06/22 19:59 03:59 11:59 Intake Total 300 / 1731 1431 / 1731 Output Total 2350 / 2850 400 / 2850 100 / 2850 Balance -2050 / -1119 1031 / -1119 -100 / -1119 Intake: Intake, Oral Amount 300 / 300 Intake, Total IV Amount 1431 / 1431 0.9 % Sodium Chloride 1000ML 1, 1134 / 1134 000 ml @ 100 mls/hr IV .Q10H RADHA Rx#:[id number] Clindamycin Phosphate/D5w 900 50 / 50 mg In 50 ml @ 100 mls/hr IV Q8H RADHA Rx#:[id number] Vancomycin/Water For Inj (Peg) 247 / 247 1.25 gm In 250 ml @ 125 mls/hr IV Q18H RADHA Rx#:[id number] Output: Output, Urine Amount 2350 / 2850 400 / 2850 100 / 2850 Other: Number of Unmeasured Voids 1 Number of Bowel Movements 1 1 Weight 151 lb 14.4 oz Patient Weight 09/06/22 11:59 Weight 151 lb 14.4 oz Laboratory Results - last 24 hr 09/05/22 21:08: Vancomycin Trough 7.4 09/06/22 02:15: Vancomycin Peak 14.6 09/06/22 06:21: WBC 9.4, RBC 3.36 L, Hgb 9.4 L, Hct 28.3 L, MCV 84.3, MCH 28.1, MCHC 33.3, RDW 18.7 H, Plt Count 146 D, MPV 8.9, Neut % (Auto) 81.8 H, Lymph % (Auto) 8.7 L, [place] % (Auto) 7.8, Eos % (Auto) 1.5, Baso % (Auto) 0.2, Neut # (Auto) 7.6, Lymph # (Auto) 0.8, [place] # (Auto) 0.7, Eos # (Auto) 0.1, Baso # (Auto) 0.0 09/06/22 06:21: Sodium 136, Potassium 3.4 L, Chloride 99, Carbon Dioxide 24, Anion Gap 16.4 H, BUN 12, Creatinine 0.60 L, Estimated Creat Clear 61, Estimated GFR 131, Est GFR ( Amer) 159, Glucose 76, Calcium 7.8 L I & O for Labs for Last 24 Hours: Intake & Output 09/03/22 09/04/22 09/05/22 09/06/22 11:59 11:59 11:59 11:59 Intake Total 2698 / 2698 2385 / 2385 1096 / 1096 1731 / 1731 Output Total 0 / 0 0 / 0 2150 / 2150 2850 / 2850 Balance 2698 / 2698 2385 / 2385 -1054 / -1054 -1119 / -1119 Weight 159 lb 8 oz 156 lb 4.924 oz 160 lb 6.4 oz 151 lb 14.4 oz Microbiology Reports for the Last 24 Hours: Microbiology 09/03/22 10:10 Sputum - Expectorated Sputum Gram Stain - Final 09/03/22 10:10 Sputum - Expectorated Sputum Sputum Culture - Preliminary Comment:: Patient is alert. Talkative. Pleasant. Anterior lung nation are clear, he is has some rhonchi in the posterior nation. Heart rate regular. Abdomen soft. His right leg does have redness more than yesterday, with a red spot on the medial aspect of the right heel just below the right malleolus. It is somewhat tender. Assessment and Plan *Assessment and plan (1) Cellulitis of lower leg: Status: Acute Category: Medical Code(s): L03.119 - Cellulitis of unspecified part of limb (2) LO (acute kidney injury): Status: Acute Category: Medical Code(s): N17.9 - Acute kidney failure, unspecified (3) Mental status alteration: Status: Acute Category: Medical Code(s): R41.82 - Altered mental status, unspecified (4) SIRS due to infectious process with acute organ dysfunction: Status: Acute Category: Medical Code(s): A41.9 - Sepsis, unspecified organism; R65.20 - Severe sepsis without septic shock (5) COPD (chronic obstructive pulmonary disease): Status: Chronic Category: Medical Code(s): J44.9 -
--- NOTE | 2022-09-06 10:35 | EXP.PHA.CONS ---
Pharmacy Consult Date: 09/06/22 Time: 10:35 Referring provider: DR. HOFF Reason for Consult:: VANCOMYCIN TROUGH/PEAK LEVELS Allergies Allergy/AdvReac Type Severity Reaction Status Date / Time Penicillins Allergy Intermediate I-ITCHING; Verified 07/19/22 09:17 SWELLING Antihistamines - Ethanolamine Allergy Unknown Unknown Verified 07/19/22 09:17 allergy reaction [place] nut Allergy Rash Verified 09/01/22 13:20 doxycycline AdvReac Mild Rash Verified 07/19/22 09:17 Home Medications Medication Instructions Recorded Confirmed Type albuterol sulfate 90 mcg/actuation 2 puff inhalation Q4HP PRN 08/27/17 09/01/22 History aerosol inhaler (Ventolin HFA) Shortness Of Breath aspirin 81 mg tablet,delayed 81 mg PO DAILY HEART HEALTH 08/27/17 09/01/22 History release (Adult Low Dose Aspirin) folic acid 1 mg tablet 1 mg PO DAILY Supplement 08/27/17 09/01/22 History atorvastatin 80 mg tablet 80 mg PO DAILY HLD #90 tabs 03/27/22 09/01/22 Rx albuterol sulfate 1.25 mg/3 mL 1.25 mg inhalation Q6HP PRN 07/10/22 09/01/22 History solution for nebulization Shortness Of Breath fluticasone propionate 50 2 spray intranasal DAILY allergies 08/18/22 09/01/22 History mcg/actuation nasal spray,suspension (Flonase Allergy Relief) isosorbide mononitrate 30 mg 30 mg PO DAILY Hypertension 08/18/22 09/01/22 History tablet,extended release 24 hr metoprolol succinate 100 mg 100 mg PO DAILY Hypertension 08/18/22 09/01/22 History tablet,extended release 24 hr clopidogrel 75 mg tablet 75 mg PO DAILY PLATELET INHIBITOR 09/01/22 09/01/22 History fluticasone fur. 100 mcg-umeclid 1 inh inhalation DAILY COPD 09/01/22 09/01/22 History 62.5 mcg-vilant 25 mcg inhalat.powder (Trelegy Ellipta) mirtazapine 15 mg tablet 7.5 mg PO HS MOOD 09/01/22 09/01/22 History pantoprazole 40 mg tablet,delayed 40 mg PO DAILY Acid reflux 09/01/22 09/01/22 History release New Prescriptions to Start Prescriptions: Height: 1.68 m Weight: 68.901 kg Laboratory Results:: Laboratory Results - last 24 hr 09/05/22 21:08: Vancomycin Trough 7.4 09/06/22 02:15: Vancomycin Peak 14.6 09/06/22 06:21: WBC 9.4, RBC 3.36 L, Hgb 9.4 L, Hct 28.3 L, MCV 84.3, MCH 28.1, MCHC 33.3, RDW 18.7 H, Plt Count 146 D, MPV 8.9, Neut % (Auto) 81.8 H, Lymph % (Auto) 8.7 L, [place] % (Auto) 7.8, Eos % (Auto) 1.5, Baso % (Auto) 0.2, Neut # (Auto) 7.6, Lymph # (Auto) 0.8, [place] # (Auto) 0.7, Eos # (Auto) 0.1, Baso # (Auto) 0.0 09/06/22 06:21: Sodium 136, Potassium 3.4 L, Chloride 99, Carbon Dioxide 24, Anion Gap 16.4 H, BUN 12, Creatinine 0.60 L, Estimated Creat Clear 61, Estimated GFR 131, Est GFR ( Amer) 159, Glucose 76, Calcium 7.8 L Medical History: Medical History Abdominal bruit Allergic rhinitis CAD (coronary artery disease) Cardiac murmur Carotid artery disease Chronic cough Claudication COPD (chronic obstructive pulmonary disease) COPD exacerbation COPD mixed type Dyspnea on exertion Hearing Loss Hemoptysis Impacted cerumen Laceration of right ear canal Lung nodule Peripheral arterial disease Small cell lung cancer Smoker Smoking greater than 30 pack years Assessment and Plan Assessment and plan all Dx Assessment and Plan for all problems:: BASED ON PATIENT FACTORS AND VANCOMYCIN TROUGH/PEAKS LEVELS OF 7.4/14.6 RESPECTIVELY, RECOMMEND CHANGING VANCOMYCIN DOSING INTERVAL TO Q12H. DOSE WILL REMAIN THE SAME AT 1,250MG. CALCULATED AUC IS 579.0. PHARMACY WILL CONTINUE TO MONITOR. -MORGAN SOARES PHARMD
--- NOTE | 2022-09-06 10:49 | HMH.PTWOUND ---
Rehab Inpt Wound Evaluation Rehab IP Wound Evaluation Start: 09/06/22 10:35 Freq: Status: Active Protocol: Document 09/06/22 10:35 CHRISTEL (Rec: 09/06/22 10:49 CHRISTEL [id number]) Rehab PT Wound Assessment Subjective Subjective 77 yowm who presented to hospital with R LE cellulitis, LO, and poss sepsis upon adm . He reports no c/o pain at rest or with mobility currently. He does have mild tenderness to palpation throughout R ankle and foot, 1 /. He reports he is generally independent with all mobility at home without AD, lives with , 1 step to enter the home. He presents this am with 1+ pitting edema to R lower leg and 3+ pitting edema to R ankle and foot. Increased R medial ankle erythema. Blood cultures from 09/01/22 were positive for group A strep. Plan/Recommendation Comment Pt was instructed in ankle pumps to aid LE circulation and given a double layer size D tubigrip compression sleeve to decrease R LE pitting edema . Pt instructed in wear schedule for tubigrip. No current open sores noted and no weeping or drainge. Pt and spouse agree with treatment and will follow-up as needed as outpatient in the Lymphedema clinic. Eval Complexity Eval Charge Codes 66898 - Moderate Complexity PHYSICIAN CERTIFICATION: I certify the specified therapy services for Lawrence Alonso are required, authorized, and reviewed every 30 days.
[2022-09-06 11:31] VITALS: BP 123/54; PULSE 76; RESP 18; TEMP 36.8; O2SAT 95
--- NOTE | 2022-09-06 13:01 | XR_ITS ---
FINAL REPORT CLINICAL HISTORY: Confirm PICC line placement COMPARISON: 09/01/2022 FINDINGS: SINGLE-VIEW CHEST The heart size is normal. The patient is status post median sternotomy. The lungs are hyperinflated consistent with COPD. Left PICC line tip terminates in the upper SVC. There is no pneumothorax. IMPRESSION: PICC line as above. Reviewed, Interpreted and Dictated by Karri Roldan III, MD Transcribed by Bernadette Nolasco Authenticated and [facility]
--- NOTE | 2022-09-06 14:17 | DIET.NUTRFU ---
Meal intake for lunch showed some improvement, consumed 1/2 sandwich and 1/2 banana. Continued to have 2 BM today but not as loose. Plans to discharge with PICC line for ABT tx. Reviewed meal intake at home, he was drinking 3 Ensure/week and taking remeron for about 3 months and feels appetite has improved. Encouraged yogurt during and after ABT tx is completed. Provided ensure during visit. He did drink the Boost clear yesterday for additional calories and protein
--- NOTE | 2022-09-06 15:55 | EXP.DC.SUM ---
General Admission date:: 09/01/22 Discharge date: 09/06/22 HPI HPI HPI: 77-year-old male with history of severe COPD, cardiac atherosclerosis and peripheral atherosclerosis, ex heavy smoker, status post lung cancer treatment with chemotherapy and radiation therapy is currently out of therapy with no noted disease and is in the surveillance phase, who was feeling good over the past week, playing golf and doing some yard work, when yesterday evening he began to feel very tired and lost his appetite and could not eat supper. He reports that he became very chilled and even turned on his fireplace even though it was very warm outside. This morning he became even more chilled and feverish and weak. Was brought to the emergency department. He is unclear about how he got to the ER. His is not with him at this point-she went home to get medications-and he is unable to really complete sentences which is a very unusual finding for him. He reports that his leg has been somewhat painful and tender over the past 24 hours but has not really looked at it. In the ER he was found to meet sepsis criteria with high lactate, high WBC counts, elevated creatinine and source of infection was found to be his right anterior holt. She was admitted for further observation and vancomycin was started in the ER. Hospital Course Hospital Course Hospital Course: Patient was admitted, placed on broad-spectrum antibiotics with vancomycin initially but this was stopped because of his acute kidney injury. LO resolved with fluids and treatment for sepsis. I started clindamycin because of the gram-positive probability from the right leg. However sputum culture grew E. coli and we added ceftriaxone for this coverage. Clindamycin was stopped because of diarrhea but this turned out to be norovirus. It resolved spontaneously. Blood culture showed strep pyogenes in both bottles, most likely from the skin infection. Given patient's penicillin allergy Invanz was started for both E. coli and gram-positive coverage Concern was for the development of necrotizing fasciitis and although patient had absolutely no clinical evidence of this during his hospital stay -we will arrange aggressive intravenous and p.o. antibiotic therapy and close follow-up to make sure that he does not develop fasciitis in the near future. Patient improved in regards to mental status, lung issues, etc. And he will be discharged home today on Invanz intravenously through a PICC line that was placed today and clindamycin 3 times daily for the next 7 days. I will follow him as an outpatient as well physical therapy for lymphedema and swelling and the infusion department nurses tomorrow. Exam Data for Last 24 hours Vital signs and Labs for Last 24 Hours: Temp Pulse Resp BP Pulse Ox FiO2 98.2 F 76 18 123/54 L 95 28 09/06/22 11:31 09/06/22 11:31 09/06/22 11:09/06/22 11:09/06/22 11:09/05/22 20:23 Laboratory Results - last 24 hr 09/05/22 21:08: Vancomycin Trough 7.4 09/06/22 02:15: Vancomycin Peak 14.6 09/06/22 06:21: WBC 9.4, RBC 3.36 L, Hgb 9.4 L, Hct 28.3 L, MCV 84.3, MCH 28.1, MCHC 33.3, RDW 18.7 H, Plt Count 146 D, MPV 8.9, Neut % (Auto) 81.8 H, Lymph % (Auto) 8.7 L, Desha % (Auto) 7.8, Eos % (Auto) 1.5, Baso % (Auto) 0.2, Neut # (Auto) 7.6, Lymph # (Auto) 0.8, Desha # (Auto) 0.7, Eos # (Auto) 0.1, Baso # (Auto) 0.0 09/06/22 06:21: Sodium 136, Potassium 3.4 L, Chloride 99, Carbon Dioxide 24, Anion Gap 16.4 H, BUN 12, Creatinine 0.60 L, Estimated Creat Clear 61, Estimated GFR 131, Est GFR ( Amer) 159, Glucose 76, Calcium 7.8 L I & O for Last 24 hours: Intake & Output 09/04/22 09/05/22 09/06/22 09/07/22 11:59 11:59 11:59 11:59 Intake Total 2385 / 2385 1096 / 1096 1731 / 1731 Output Total 0 / 0 2150 / 2150 2850 / 2850 Balance 2385 / 2385 -1054 / -1054 -1119 / -1119 Weight 156 lb 4.924 oz 160 lb 6.4 oz 151 lb 14.4 oz Microbiology Reports for the Last 24 Hours
--- NOTE | 2022-09-06 16:47 | PC.NURSE ---
per Jana PICC line ok to use
--- NOTE | 2022-09-07 12:28 | CARE MANAGER ---
Patient's states he is doing well and denies any questions or concerns. He is getting ready to come to [facility] for infusion and did machine operator picker prescription yesterday. Aware of follow up appointment with MD on 09/13. JYOTI Main
== END 2022-09-06 18:17 | disposition home or self-care (01) | DRG 871 ==
LOC: ER 11:20 → 2ND 11:46
PROVIDERS: Admitting Provider Internal Medicine Adolescent Medicine; Emergency Provider Student in an Organized Health Care Education/Training Program; PCP Internal Medicine Adolescent Medicine; Visit Provider Internal Medicine Adolescent Medicine
DX: A40.1 Sepsis due to streptococcus, group B (principal); J15.5 Pneumonia due to Escherichia coli; A08.11 Acute gastroenteropathy due to Norwalk agent; L03.115 Cellulitis of right lower limb; N17.9 Acute kidney failure, unspecified; J44.0 Chronic obstructive pulmonary disease with (acute) lower respiratory infection; C34.90 Malignant neoplasm of unspecified part of unspecified bronchus or lung; I25.10 Atherosclerotic heart disease of native coronary artery without angina pectoris; I73.9 Peripheral vascular disease, unspecified; Z87.891 Personal history of nicotine dependence; E87.6 Hypokalemia; E83.51 Hypocalcemia
CPT/HCPCS: 36569; 36410; 36415; 70450; 71045; 73590; 80048; 80053; 80202; 81001; 82140; 82607; 83605; 84443; 85007; 85025; 86140; 87040; 87070; 87077; 87186; 87205; 87506; 87636; 93971; 94640; 99285; C1751; C9803; J0696; J1335; J3370; U0003; U0005

== ENCOUNTER 2022-09-07 12:59 | Outpatient (CLI) | payer MEDICARE, OTHER, SELFPAY ==
[2022-09-07 13:07] VITALS: BP 123/67; PULSE 84; RESP 18; TEMP 36.6; O2SAT 96
[2022-09-07 13:55] VITALS: BP 130/76; PULSE 81; RESP 18; O2SAT 97
== END 2022-09-07 14:00 | disposition home or self-care (01) ==
LOC: INF 13:00
PROVIDERS: PCP Internal Medicine Adolescent Medicine; Visit Provider Internal Medicine Adolescent Medicine
DX: L03.115 Cellulitis of right lower limb (principal); Z45.2 Encounter for adjustment and management of vascular access device
CPT/HCPCS: 96365; J1335

== ENCOUNTER 2022-09-08 12:46 | Outpatient (CLI) | payer MEDICARE, OTHER, SELFPAY ==
[2022-09-08 13:20] VITALS: BP 131/58; PULSE 74; RESP 18; TEMP 36.6
[2022-09-08 13:50] VITALS: BP 139/69; PULSE 69; RESP 16
== END 2022-09-08 14:05 | disposition home or self-care (01) ==
LOC: INF 12:48
PROVIDERS: PCP Internal Medicine Adolescent Medicine; Visit Provider Internal Medicine Adolescent Medicine
DX: L03.115 Cellulitis of right lower limb (principal)
CPT/HCPCS: 96365; J1335

== ENCOUNTER 2022-09-09 13:24 | Outpatient (CLI) | payer MEDICARE, OTHER, SELFPAY ==
[2022-09-09 13:25] VITALS: BP 134/60; PULSE 73; RESP 18; TEMP 36.6; O2SAT 97
--- NOTE | 2022-09-09 14:11 | PC.NURSE ---
notified Dr Montes that pt was in room 200. Dr Montes requested that pt pulses be checked/dopplered on r foot. LAST REPAIRER HELPER present on r foot, DPA present as well. unable to position pt to doppler peroneal. aware.
== END 2022-09-09 14:20 | disposition home or self-care (01) ==
PROVIDERS: PCP Internal Medicine Adolescent Medicine; Visit Provider Internal Medicine Adolescent Medicine
DX: L03.115 Cellulitis of right lower limb (principal); Z45.2 Encounter for adjustment and management of vascular access device
CPT/HCPCS: 96365; J1335

== ENCOUNTER 2022-09-10 12:53 | Outpatient (CLI) | payer MEDICARE, OTHER, SELFPAY ==
[2022-09-10 13:10] VITALS: BP 126/57; PULSE 66; RESP 18; O2SAT 97
--- NOTE | 2022-09-10 13:16 | PC.NURSE ---
pulses dopplered in r leg. + in CENTER CONSULTANT and DPA. no change in swelling from previous assessment on 09/09. Notified Dr Montes at [id number]
[2022-09-10 13:45] VITALS: BP 110/76; PULSE 64; RESP 18
== END 2022-09-10 13:45 | disposition home or self-care (01) ==
LOC: INF 12:54
PROVIDERS: PCP Internal Medicine Adolescent Medicine; Visit Provider Internal Medicine Adolescent Medicine
DX: L03.115 Cellulitis of right lower limb (principal); Z45.2 Encounter for adjustment and management of vascular access device
CPT/HCPCS: 96365; J1335

== ENCOUNTER 2022-09-11 14:03 | Outpatient (CLI) | payer MEDICARE, OTHER, SELFPAY | END 2022-09-11 15:10 | disposition home or self-care (01) | LOC: INF 14:04 | PROVIDERS: PCP Internal Medicine Adolescent Medicine; Visit Provider Internal Medicine Adolescent Medicine | DX: L03.115 Cellulitis of right lower limb (principal); Z45.2 Encounter for adjustment and management of vascular access device | CPT/HCPCS: 96365; J1335 ==

== ENCOUNTER 2022-09-12 14:01 | Outpatient (CLI) | payer MEDICARE, OTHER, SELFPAY ==
[2022-09-12 14:30] VITALS: BP 137/58; PULSE 59; RESP 18; TEMP 36.7; O2SAT 99
[2022-09-12 15:18] VITALS: BP 148/61; PULSE 56; RESP 18; O2SAT 98
== END 2022-09-12 15:18 | disposition home or self-care (01) ==
PROVIDERS: PCP Internal Medicine Adolescent Medicine; Visit Provider Internal Medicine Adolescent Medicine
DX: L03.115 Cellulitis of right lower limb (principal); Z45.2 Encounter for adjustment and management of vascular access device
CPT/HCPCS: 96365; J1335

== ENCOUNTER 2022-09-13 14:06 | Outpatient (CLI) | payer MEDICARE, OTHER, SELFPAY ==
[2022-09-13 14:40] VITALS: BP 128/75; PULSE 72; RESP 18; O2SAT 99
[2022-09-13 15:11] VITALS: BP 131/76; PULSE 74; RESP 18
== END 2022-09-13 15:12 | disposition home or self-care (01) ==
LOC: INF 14:07
PROVIDERS: PCP Internal Medicine Adolescent Medicine; Visit Provider Internal Medicine Adolescent Medicine
DX: L03.115 Cellulitis of right lower limb (principal); Z45.2 Encounter for adjustment and management of vascular access device
CPT/HCPCS: 96365; J1335

== ENCOUNTER 2022-09-14 13:32 | Outpatient (CLI) | payer MEDICARE, OTHER, SELFPAY ==
[2022-09-14 13:53] VITALS: BP 127/52; PULSE 62; RESP 18; O2SAT 95
[2022-09-14 14:45] VITALS: BP 127/50; PULSE 57; RESP 18
== END 2022-09-14 14:45 | disposition home or self-care (01) ==
LOC: INF 13:33
PROVIDERS: PCP Internal Medicine Adolescent Medicine; Visit Provider Internal Medicine Adolescent Medicine
DX: L03.115 Cellulitis of right lower limb (principal); Z45.2 Encounter for adjustment and management of vascular access device
CPT/HCPCS: 96365; J1335

== ENCOUNTER → 2022-09-15 13:55 | Outpatient (CLI) | payer MEDICARE, OTHER, SELFPAY ==
[2022-09-15 14:24] VITALS: BP 120/60; PULSE 62; RESP 18; O2SAT 95
[2022-09-15 15:05] VITALS: BP 125/47; PULSE 59; RESP 18
== END | disposition home or self-care (01) ==
PROVIDERS: PCP Internal Medicine Adolescent Medicine; Visit Provider Internal Medicine Adolescent Medicine
DX: L03.115 Cellulitis of right lower limb (principal); Z45.2 Encounter for adjustment and management of vascular access device
CPT/HCPCS: 96365; J1335

== ENCOUNTER → 2022-09-16 08:44 | Outpatient (CLI) | payer MEDICARE, OTHER, SELFPAY ==
--- NOTE | 2022-09-16 | MR_ITS ---
PROCEDURE INFORMATION: Exam: MR Right Lower Extremity Other Than Joint Without Contrast; Foot Exam date and time: 09/16/2022 8:51 AM Age: 77 years old Clinical indication: Cellulitis; Foot; Right; Additional info: Cellulitis of right foot. Swelling. Started September 01. TECHNIQUE: Imaging protocol: Magnetic resonance imaging of the right lower extremity without contrast. Exam focused on the foot. COMPARISON: 1. CR XR TIBIA FIBULA RT 2V 09/01/2022 9:56 AM 2. CA VENOUS DOPPLER LE RT 09/05/2022 9:15 AM 3. CA VENOUS DOPPLER LE RT 09/01/2022 10:51 AM FINDINGS: Limitations: Motion artifact. Bones/joints: There is no evidence of osteomyelitis. There is no acute fracture or dislocation. No aggressive bone lesions are present. An os trigonum accessory bone is present along the dorsal aspect of the talus. The ossicle has a normal appearance. There is no evidence of posterior impingement. 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 LIGAMENTS: Lisfranc ligament: Unremarkable. No evidence of tear. TENDONS: Flexor tendons of foot: Unremarkable. No evidence of tear. Tibialis posterior tendon: Unremarkable as visualized. Peroneal tendons: Unremarkable as visualized. Extensor tendons of foot: Unremarkable. No evidence of tear. Tibialis anterior tendon: Unremarkable as visualized. Achilles tendon: There is no tear or significant tendinosis involving the Achilles tendon. Tarsal canal (Sinus tarsi): Abnormal signal intensity material nearly obliterates the fat in the sinus tarsi. The cervical ligament is poorly defined and may be partially torn. The appearance suggests sinus tarsi syndrome. Tarsal tunnel: Unremarkable. Soft tissues: There is a prominent amount of edema in the subcutaneous fat. There is no soft tissue gas or focal fluid collection in the soft tissues to suggest an abscess. Mild atrophy of the abductor digiti minimi muscle suggests possible entrapment of the inferior calcaneal nerve (Willard nerve). Plantar fascia: Unremarkable as visualized. IMPRESSION: 1. No abscess or osteomyelitis. 2. Severe subcutaneous edema consistent with cellulitis. 3. Findings suggestive of sinus tarsi syndrome. 4. 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 5. 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
--- NOTE | 2022-09-16 | MR_ITS ---
PROCEDURE INFORMATION: Exam: MR Right Lower Extremity Joint Without Contrast; Ankle Exam date and time: 09/16/2022 8:51 AM Age: 77 years old Clinical indication: Cellulitis; Ankle; Right; Additional info: Cellulitis of right foot. Swelling. Started on September 01 TECHNIQUE: Imaging protocol: Magnetic resonance imaging of the right lower extremity without contrast. Exam focused on the ankle. COMPARISON: 1. CR XR TIBIA FIBULA RT 2V 09/01/2022 9:56 AM 2. CA VENOUS DOPPLER LE RT 09/05/2022 9:15 AM 3. CA VENOUS DOPPLER LE RT 09/01/2022 10:51 AM FINDINGS: Limitations: Motion artifact. Bones/joints: There is no evidence of osteomyelitis. There is no acute fracture or dislocation. No aggressive bone lesions are present. An os trigonum accessory bone is present along the dorsal aspect of the talus. The ossicle has a normal appearance. There is no evidence of posterior impingement. A 2 mm focus of full-thickness cartilage loss involves the anterior aspect of the tibial plafond medial to the midline (series 7/image 50). LIGAMENTS: Distal tibiofibular syndesmosis: Unremarkable. No tear. Anterior talofibular ligament: Unremarkable. No tear. Posterior talofibular ligament: Unremarkable. No tear. Calcaneofibular ligament: Unremarkable. No tear. Deltoid ligament complex: Unremarkable. No tear. TENDONS: Flexor tendons of foot: Unremarkable as visualized. Tibialis posterior tendon: Unremarkable as visualized. Peroneal tendons: Unremarkable as visualized. Extensor tendons of foot: Unremarkable as visualized. Tibialis anterior tendon: Unremarkable. Achilles tendon: There is no tear or significant tendinosis involving the Achilles tendon. Tarsal canal (Sinus tarsi): Abnormal signal intensity material nearly obliterates the fat in the sinus tarsi. The cervical ligament is poorly defined and may be partially torn. The appearance suggests sinus tarsi syndrome. Tarsal tunnel: Unremarkable. Soft tissues: There is a prominent amount of edema in the subcutaneous fat. There is no soft tissue gas or focal fluid collection in the soft tissues to suggest an abscess. Mild atrophy of the abductor digiti minimi muscle suggests possible entrapment of the inferior calcaneal nerve (Willard nerve). Plantar fascia: Unremarkable. IMPRESSION: 1. No abscess or osteomyelitis. 2. Severe subcutaneous edema consistent with cellulitis. 3. Findings suggestive of sinus tarsi syndrome. 4. 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
== END ==
PROVIDERS: PCP Internal Medicine Adolescent Medicine; Visit Provider Internal Medicine Adolescent Medicine
DX: L03.115 Cellulitis of right lower limb (principal)
CPT/HCPCS: 73718; 73721

== ENCOUNTER 2022-09-16 11:40 | Outpatient (CLI) | payer MEDICARE, OTHER, SELFPAY ==
[2022-09-16 11:57] VITALS: BMI 22.4
[2022-09-16 12:33] LABS: Chloride 96 mmol/L (98-107); Potassium 3.9 mmoL/L (3.5-5.1); Sodium 135 mmol/L (136-145)
[2022-09-16 12:35] LABS: Basophils % 0.3 % (0.1-2.0); Eosinophils # 0.1 K/mm3 (0.0-0.4); Eosinophils % 1.8 % (0.1-12.0); Hematocrit 29.6 % (42.0-52.0); Hemoglobin 9.4 g/dL (14.1-18.0); Lymphocytes # 0.8 K/mm3 (0.7-4.5); Lymphocytes % 11.8 % (10-50); Mean Corpuscular HGB Conc 31.9 g/dL (31.8-35.4); Mean Corpuscular Hemoglobin 26.8 pg (27.0-31.2); Mean Corpuscular Volume 83.9 fl (80-94); Mean Platelet Volume 7.8 fl (7.4-10.4); Monocytes # 0.5 K/mm3 (0.1-1.0); Monocytes % 7.4 % (1.7-9.3); Neutrophils # 5.6 K/mm3 (1.8-7.8); Neutrophils % 78.7 % (37.0-80.0); Platelet Count 348 K/mm3 (142-424); Red Blood Count 3.53 M/mm3 (4.60-6.20); Red Cell Distribution Width 19.3 % (11.5-17.5); White Blood Count 7.1 K/mm3 (4.8-10.8)
[2022-09-16 12:36] LABS: Anion Gap 12.9 mEq/L (5-15); Blood Urea Nitrogen 9 mg/dl (9-20); Calcium 8.7 mg/dl (8.4-10.2); Carbon Dioxide 30 mmol/L (22.0-30.0); Creatinine Clearance Estimated 56 mL/min (50-200); Estimated Glomerular Filt Rate 110 ml/min (>60); GFR (African American) 133 ML/MIN (>60); Glucose 109 mg/dl (74-100)
[2022-09-16 13:13] LABS: Erythrocyte Sedimentation Rate 124 mm/hr (0-20)
--- NOTE | 2022-09-16 14:03 | PC.NURSE ---
Dr Montes notified of lab results
== END 2022-09-16 13:29 | disposition home or self-care (01) ==
PROVIDERS: PCP Internal Medicine Adolescent Medicine; Visit Provider Internal Medicine Adolescent Medicine
DX: E86.0 Dehydration (principal); L03.115 Cellulitis of right lower limb; Z45.2 Encounter for adjustment and management of vascular access device
CPT/HCPCS: 73718; 73721; 80048; 85025; 85651; 96360; 96365; G0463; J1335

== ENCOUNTER → 2022-09-18 19:32 | Outpatient (CLI) | payer MEDICARE, OTHER, SELFPAY | PROVIDERS: PCP Internal Medicine Adolescent Medicine; Visit Provider Nurse Practitioner Family | DX: M79.671 Pain in right foot; S91.101A Unspecified open wound of right great toe without damage to nail, initial encounter; B37.89 Other sites of candidiasis | CPT/HCPCS: 87070; 87106; 87205 ==

== ENCOUNTER → 2022-09-20 11:15 | Outpatient (CLI) | payer MEDICARE, OTHER, SELFPAY ==
--- NOTE | 2022-09-20 11:18 | CT_ITS ---
FINAL REPORT CLINICAL HISTORY: bilateral occipital neuralgia cognitive changes COMPARISON: 09/01/2022 FINDINGS: Mild atrophy. No cortical edema is present. There is no mass or hemorrhage. Ventricles are normal. Bone windows show no skull fracture or obvious obstructive lesion. IMPRESSION: 1. No acute intracranial abnormality or obvious mass. 2. Atrophy Reviewed, Interpreted and Dictated by Carol Jolly MD Transcribed by Valeria Boyle Authenticated and [facility]
== END ==
PROVIDERS: PCP Internal Medicine Adolescent Medicine; Visit Provider Internal Medicine Adolescent Medicine
DX: M54.81 Occipital neuralgia (principal); R41.89 Other symptoms and signs involving cognitive functions and awareness
CPT/HCPCS: 70450

== ENCOUNTER 2022-09-21 10:18 | Outpatient (RCR) | payer MEDICARE, OTHER, SELFPAY ==
--- NOTE | 2022-09-21 16:44 | HMH.PTOPWND ---
Rehab Outpt Wound Evaluation Rehab OP Wound Evaluation Start: 09/21/22 14:55 Freq: Status: Active Protocol: Document 09/21/22 16:24 PHORMELITON (Rec: 09/21/22 16:44 PHORNE [id number]) E-signed By Gordo Delatorre, PT Subjective/History History History This is the initial PT eval for Lawrence Alonso, 77 yowm who presents with R lower leg wound, edema, skin discoloration, and pain x ~ 4 wks with indsious onset of symptoms. He was recently hospitalized with cellulitis, sepsis, norovirus x ~ 6 days and with 14 days of IV abx. Blood cultures were positive for Strep A during hospitalization. He reports significant pain is his worst problem and he has R medial ankle wound. He has PMH of PAD , COPD, carotid endarterectomy , B LE arterial stents, SCLC with chemo and XRT. He reports since his hospital stay he had loss of appetite and his reports several episodes of episodes where he kind of blacks out, and he talks to people who aren't there since he was in the hospital. He had recent head CT which shows cerebral atrophy only, R ankle MRI which shows cellulitis without osteomyelitis, and wound culture of his R 4th toe that is growing unknown variety of yeast. Subjective Subjective Pain throughout R lower leg 7/ 10 currently, 10/10 at worst. 3/4 TTP noted around medial R ankle. Significant discoloration with black superficial tissue throughout the medial R lower leg and large amts of blanchable erythema. 2+ pitting edema noted to R foot only. During treatment pt had a syncopal type episode lasting ~ 15-30
== END 2022-09-21 10:20 | disposition home or self-care (01) ==
LOC: PT 10:18
PROVIDERS: PCP Internal Medicine Adolescent Medicine; Visit Provider Internal Medicine Adolescent Medicine
DX: I73.9 Peripheral vascular disease, unspecified (principal); M79.661 Pain in right lower leg; L03.115 Cellulitis of right lower limb
CPT/HCPCS: 97163; 97597

== ENCOUNTER 2022-09-21 11:22 | Emergency (ER) | payer MEDICARE, OTHER, SELFPAY ==
[2022-09-21] VITALS (8 sets, daily range): BP systolic 94–168; BP diastolic 46–76; PULSE 44–56; RESP 15–18; TEMP 36.4; O2SAT 94–99; BMI 22.8
--- NOTE | 2022-09-21 11:28 | ECG_ITS ---
APPROVED REPORT Exam: Resting ECG HR:44 bpm ECG Measurements Heart Rate 44 AXES DC 145 P 1 QRSd 109 QRS 59 QT 499 T 71 QTc 448 Conclusion SINUS BRADYCARDIA MINIMAL ST DEPRESSION [0.025+ mV ST DEPRESSION] BORDERLINE ECG UNCONFIRMED REPORT Electronically signed by : Curtis Montes MD 09/21/2022 13:29:24
--- NOTE | 2022-09-21 11:33 | HMH.EDSYNC ---
Discharge Plan Disposition Patient Disposition: Home, Self-Care Condition: Good Prescriptions Prescriptions: No Action aspirin [Adult Low Dose Aspirin] 81 mg tablet,delayed release (DR/EC) 81 mg PO DAILY folic acid 1 mg tablet 1 mg PO DAILY albuterol sulfate [Ventolin HFA] 90 mcg/actuation HFA aerosol inhaler 2 puff IH Q4HP PRN (Reason: Shortness Of Breath) albuterol sulfate 1.25 mg/3 mL solution for nebulization 1.25 mg inhalation Q6HP PRN (Reason: Shortness Of Breath) Label Comments: USE 1 VIAL IN NEBULIZER EVERY 6 HOURS NEEDED FOR SHORTNESS OF BREATH FOR WHEEZING atorvastatin 80 mg tablet 80 mg PO DAILY Qty: 90 3RF isosorbide mononitrate 30 mg tablet extended release 24 hr 30 mg PO DAILY metoprolol succinate 100 mg tablet extended release 24 hr 100 mg PO DAILY fluticasone propionate [Flonase Allergy Relief] 50 mcg/actuation spray,suspension 2 spray intranasal DAILY Rx Instructions: administer into each nostril ertapenem [Invanz] 1 gram recon soln 1 g IV Q24H clopidogrel 75 mg tablet 75 mg PO DAILY Label Comments: TAKE 1 TABLET BY MOUTH ONCE DAILY FOR BLOOD THINNER pantoprazole 40 mg tablet,delayed release (DR/EC) 40 mg PO DAILY Label Comments: TAKE 1 TABLET BY MOUTH ONCE DAILY mirtazapine 15 mg tablet 7.5 mg PO HS Trelegy Ellipta 100-62.5-25 mcg blister with device 1 inh INHALATION DAILY Label Comments: INHALE 1 PUFF BY MOUTH ONCE DAILY FOR 90 DAYS Referrals Follow up/Referrals: Provider,Referral, MD [Referring] - See instructions Activity Restrictions/Add. Instructions Additional Instructions/Restrictions: Reduce your metoprolol to one half. If your tablets have a scoring line cut the tablet in half and only take 1/2/day for the next few days. If your tablet does not have a line, then call your procurement assistant and they will call in a new prescription for 50 mg. Please return to the emergency department immediately if you feel worse in any way. Follow-up with your procurement assistant even if you feel better within about 1 week. Clinical Impressions Clinical Impression: Syncope, vasovagal, Bradycardia, sinus Instructions Patient Instructions: DI for Syncope in Adults (Fainting) Discharge ED Provider: Nolan Epps Syncope [facility] General Chief Complaint: Syncope Stated Complaint: syncope Time Seen by Provider: 09/21/22 11:33 Mode of Arrival: Wheelchair Source of Information: Patient and Spouse History of Present Illness HPI narrative: The patient presents to the emergency department from physical therapy department because the patient sustained a syncopal episode. This was a witnessed episode and lasted approximately 15 seconds. This occurred while the patient right lower leg wound was being debrided. The patient states that he was experiencing severe pain from the debridement just prior to the syncopal episode. He feels well now. He noticed a warm feeling just prior to his syncopal episode. MD complaint: loss of consciousness Related Data Home Medications Medication Instructions Recorded Confirmed albuterol sulfate 90 mcg/actuation 2 puff inhalation Q4HP PRN 08/27/17 09/18/22 aerosol inhaler (Ventolin HFA) Shortness Of Breath aspirin 81 mg tablet,delayed 81 mg PO DAILY [facility] 08/27/17 09/18/22 release (Adult Low Dose Aspirin) folic acid 1 mg tablet 1 mg PO DAILY Supplement 08/27/17 09/18/22 albuterol sulfate 1.25 mg/3 mL 1.25 mg inhalation Q6HP PRN 07/10/22 09/18/22 solution for nebulization Shortness Of Breath fluticasone propionate 50 2 spray intranasal DAILY allergies 08/18/22 09/18/22 mcg/actuation nasal spray,suspension (Flonase Allergy Relief) isosorbide mononitrate 30 mg 30 mg PO DAILY Hypertension 08/18/22 09/18/22 tablet,extended release 24 hr metoprolol succinate 100 mg 100 mg PO DAILY Hypertension 08/18/22 09/18/22 tablet,extended release 24 hr clopido
--- NOTE | 2022-09-21 11:55 | PC.NURSE ---
Pt assisted to bedside commode. Large BM. Pt tolerated pivoting.
[2022-09-21 12:09] LABS: Basophils % 0.3 % (0.1-2.0); Eosinophils # 0.4 K/mm3 (0.0-0.4); Eosinophils % 4.6 % (0.1-12.0); Hemoglobin 9.9 g/dL (14.1-18.0); Lymphocytes # 0.7 K/mm3 (0.7-4.5); Lymphocytes % 7.9 % (10-50); Mean Corpuscular Hemoglobin 26.8 pg (27.0-31.2); Mean Corpuscular Volume 86.3 fl (80-94); Mean Platelet Volume 7.6 fl (7.4-10.4); Monocytes # 0.5 K/mm3 (0.1-1.0); Monocytes % 5.1 % (1.7-9.3); Neutrophils # 7.3 K/mm3 (1.8-7.8); Neutrophils % 82.1 % (37.0-80.0); Platelet Count 383 K/mm3 (142-424); Red Blood Count 3.71 M/mm3 (4.60-6.20); Red Cell Distribution Width 19.1 % (11.5-17.5); White Blood Count 8.9 K/mm3 (4.8-10.8)
--- NOTE | 2022-09-21 12:28 | PC.NURSE ---
IVF'S INFUSING, WARM BLANKET PROVIDED. NO NEEDS AT THIS TIME. AT BEDSIDE
--- NOTE | 2022-09-21 12:58 | PC.NURSE ---
DR ROLAND AT BEDSIDE TO REEVALUATE PT
--- NOTE | 2022-09-21 14:04 | PC.NURSE ---
ROUNDED ON PT, ADDITIONAL WARM BLANKET PROVIDED. AT BEDSIDE. NO NEEDS AT THIS TIME
--- NOTE | 2022-09-21 14:22 | PC.NURSE ---
pt ambulated approx 50ft in room with some pain with the ankle with wound. Denies any other issues at this time. Pt states he is ok to go home. at bs
== END 2022-09-21 14:35 | disposition home or self-care (01) ==
PROVIDERS: Emergency Provider Emergency Medicine; PCP Internal Medicine Adolescent Medicine
DX: R55 Syncope and collapse (principal); R00.1 Bradycardia, unspecified; I25.10 Atherosclerotic heart disease of native coronary artery without angina pectoris; J44.9 Chronic obstructive pulmonary disease, unspecified; I73.9 Peripheral vascular disease, unspecified; Z87.891 Personal history of nicotine dependence
CPT/HCPCS: 85025; 93005; 96360; 99284; 99285

== ENCOUNTER → 2022-09-25 09:56 | Outpatient (CLI) | payer MEDICARE, OTHER, SELFPAY ==
--- NOTE | 2022-09-25 10:02 | US_ITS ---
FINAL REPORT CLINICAL HISTORY: Decreased pulses in lower extremities, cellulitis RLE, previous smoker, peripheral stents, bilateral claudication. FINDINGS: ANKLE-BRACHIAL PRESSURE INDICES Pressure indices are as follows: RIGHT LOWER EXTREMITY: Ankle-brachial pressure index: 0.41 LEFT LOWER EXTREMITY: Ankle-brachial pressure index: 0.56 IMPRESSION: Moderate peripheral vascular disease. Reviewed, Interpreted and Dictated by Karri Roldan III, MD Transcribed by Rach Sotomayor Authenticated and [facility]
== END ==
PROVIDERS: PCP Internal Medicine Adolescent Medicine; Visit Provider Nurse Practitioner Family
DX: I73.9 Peripheral vascular disease, unspecified (principal)
CPT/HCPCS: 93923

== ENCOUNTER → 2022-09-26 11:54 | Outpatient (CLI) | payer MEDICARE, OTHER, SELFPAY ==
[2022-09-26 14:03] LABS: Vitamin B12 663 pg/mL (239-931)
[2022-09-30 12:10] LABS: Vitamin B1 162.1 nmol/L (66.5-200.0)
== END ==
PROVIDERS: PCP Internal Medicine Adolescent Medicine; Visit Provider Nurse Practitioner Family
DX: G93.40 Encephalopathy, unspecified (principal)
CPT/HCPCS: 36415; 82607; 84425

== ENCOUNTER 2022-09-27 13:30 | Observation (INO) | payer MEDICARE, OTHER, SELFPAY ==
[2022-09-27] VITALS (41 sets, daily range): BP systolic 62–164; BP diastolic 32–82; PULSE 55–80; RESP 12–20; TEMP 36.4; O2SAT 91–100; BMI 22.6; BMI 22.8
--- NOTE | 2022-09-27 07:05 | IR_ITS ---
APPROVED REPORT Patient Location: Outpatient PROCEDURES Left femoral arterial retrograde angiogram Catheter placed in the abdominal aorta Abdominal aortography Repositioning the catheter abdominal aorta Bilateral iliofemoral runoff Angioplasty followed by drug-coated balloon angioplasty of the right superficial femoral artery INDICATION Alger claudication class V, Right foot ulcers, Limb threatening ischemia, Peripheral artery disease, Right SFA high-grade stenosis Informed consent was obtained prior to the procedure. COMPLICATIONS None Estimated Blood Loss: Less than 10 mls TECHNIQUE 1% lidocaine used to anesthetize the left femoral groin. The left femoral artery was accessed via the Seldinger technique. A 5 Solomon Islander sheath was placed in the right femoral artery. Using an advantage wire a pigtail catheter was advanced to the abdominal aorta and abdominal aortography was performed. The catheter was then repositioned and bilateral iliofemoral foot was performed. Following this a 5 [place] Islander rim catheter was placed in the right common iliac artery and the advantage wire was placed distally into the right SFA. 5 [place] Islander sheath was exchanged and a 45 cm destination sheath was advanced. The destination sheath would not go beyond 2 cm in the proximal right common iliac artery. After the sheath did make the turn in the aortic bifurcation therapeutic heparin was administered giving a therapeutic ACT. A 7 mm x 20 mm balloon was deployed at 6 benito reducing the critical high-grade focal calcified stenosis in the proximal SFA. Following this a 7 mm x 40 mm drug-coated balloon was deployed at 8 benito for 3 minutes to further treat the critical stenosis. Excellent angiographic results were obtained with wide patency of the right superficial femoral artery at the end the procedure. Repeat angiography of the right popliteal artery demonstrated severe dense calcifications which is subtotally occluded and fills distally via extensive pregeniculate collaterals. At the end of the procedure the apparatus was removed the long 6 [place] Islander sheath was exchanged for short 6 [place] Islander sheath and the patient was transferred the postop putting in stable condition ANGIOGRAPHIC RESULTS Distal abdominal aorta is extensively calcified with nonflow limiting atheromatous plaque Bilateral common iliac have stents which are patent. Right external iliac artery stent is patent. Left external iliac artery has an eccentric 50% stenosis Bilateral common femoral arteries are patent but calcified Bilateral profunda femoris arteries are patent Right superficial femoral artery has a proximal calcified napkin ring 90% stenosis and is then patent with diffuse calcification. At Jimmy's canal the vessel was subtotally occluded due to dense calcifications. The popliteal artery is occluded at the pre and post geniculate level. There is three-vessel runoff below the knee from pregeniculate collateralization. Left superficial femoral artery is extensively calcified and subtotally occluded at Jimmy's canal. There is extensive calcification throughout the left popliteal artery. There is poor contrast visualization below the SFA on the left side likely due to sheath operating the left external iliac artery IMPRESSION Severe to critical napkin ring stenosis in the proximal right SFA Successful drug-coated balloon angioplasty to the proximal right SFA critical disease reduced to less than 10% producing excellent angiographic results and significantly improving inline flow distally Chronically subtotally occluded distal right SFA and right popliteal artery with extensive pregeniculate collaterals which provide three-vessel runoff below the right knee Subt
[2022-09-27 10:53] LABS: Basophils % 0.4 % (0.1-2.0); Eosinophils # 0.5 K/mm3 (0.0-0.4); Eosinophils % 4.6 % (0.1-12.0); Hematocrit 33.7 % (42.0-52.0); Hemoglobin 10.3 g/dL (14.1-18.0); Lymphocytes # 0.9 K/mm3 (0.7-4.5); Lymphocytes % 9.7 % (10-50); Mean Corpuscular HGB Conc 30.6 g/dL (31.8-35.4); Mean Corpuscular Hemoglobin 26.5 pg (27.0-31.2); Mean Corpuscular Volume 86.7 fl (80-94); Mean Platelet Volume 7.3 fl (7.4-10.4); Monocytes # 0.4 K/mm3 (0.1-1.0); Monocytes % 4.5 % (1.7-9.3); Neutrophils # 7.8 K/mm3 (1.8-7.8); Neutrophils % 80.7 % (37.0-80.0); Platelet Count 388 K/mm3 (142-424); Red Blood Count 3.88 M/mm3 (4.60-6.20); Red Cell Distribution Width 19.2 % (11.5-17.5); White Blood Count 9.7 K/mm3 (4.8-10.8)
[2022-09-27 10:56] LABS: Blood Urea Nitrogen 10 mg/dl (9-20); Calcium 8.7 mg/dl (8.4-10.2); Carbon Dioxide 28 mmol/L (22.0-30.0); Chloride 95 mmol/L (98-107); Creatinine Clearance Estimated 56 mL/min (50-200); Estimated Glomerular Filt Rate 131 ml/min (>60); GFR (African American) 159 ML/MIN (>60); Glucose 106 mg/dl (74-100); Sodium 133 mmol/L (136-145)
[2022-09-27 12:06] LABS: INR 1.01 (0.9-1.1); Prothrombin Time 10.9 seconds (10.1-12.5)
--- NOTE | 2022-09-27 13:13 | SUR.PHASEII ---
MD notified of pt drop in BP after protamine administration and pt complained of pain in his legs, MD came to assess, stated to give 500ml of fluid bolus and 10mg of percocet, see mar for details.
[2022-09-27 13:33] LABS: CATHL Activated Clotting Time 252 SEC (74-125)
--- NOTE | 2022-09-27 13:39 | SUR.PHASEII ---
Pt vomited up percocets, 4mg of zofran given per VO from MD
--- NOTE | 2022-09-27 13:43 | SUR.PHASEII ---
stated to give 4mg of morphine for patients pain
--- NOTE | 2022-09-27 14:33 | HMH.PHAINT1 ---
Pharmacy Intervention Comments: MEDICATION RECONCILIATION COMPLETED USING EXTERNAL FILL HISTORY FROM OUTSIDE PHARMACY AND MED LIST FROM RECENT CARDIOLOGY OFFICE VISIT
--- NOTE | 2022-09-27 14:51 | PC.NURSE ---
arrived to floor by stretcher from microbiological laboratory technician
[2022-09-27 15:37] LABS: Coronavirus 19, PCR Not Detected (NotDetected); Influenza A, PCR Not Detected (NotDetected); Influenza B, PCR Not Detected (NotDetected)
--- NOTE | 2022-09-27 18:41 | PC.NURSE ---
pt has rested since arriving to floor, educated on lying flat until 2029, verbalized understanding, pulse palpable in left foot, doppler use to obtain pulse in right foot, L femoral cath site with dressing in place, no drainage of hematoma noted, no pain reported this shift
[2022-09-28] VITALS: BP 145/52; PULSE 53; PULSE 55; RESP 16; TEMP 37.1; O2SAT 92
--- NOTE | 2022-09-28 03:00 | PC.NURSE ---
pt given tylenol at 0236 for pain in right leg, pt reports decrease in pain.
[2022-09-28 04:00] VITALS: BP 153/60; PULSE 56; PULSE 70; RESP 18; TEMP 36.7; O2SAT 92; BMI 22.9
[2022-09-28 08:00] VITALS: BP 175/82; PULSE 69; PULSE 70; RESP 18; TEMP 36.3; O2SAT 96
--- NOTE | 2022-09-28 08:10 | EXP.HPDC ---
General Admission date:: 09/27/22 Discharge date: 09/28/22 *Admission Date: 09/27/22 *Chief complaint: Leg pain, status post angioplasty of SFA. *History of present illness: 77-year-old male with recent strep pyogenes cellulitis and sepsis. Since that time he had some pain and swelling in the foot. Has been seen by podiatry. MRI showed no evidence of osteomyelitis, cellulitis has improved but patient had persistent pain and podiatry ordered JUSTICE which was markedly abnormal, transitioned over to cardiology care who did a leg catheterization procedure yesterday and did a balloon angioplasty. Please see cardiology notes for details. Patient did well and felt better in regards to pain afterwards. Given his significant calcified vessels appropriate Angio-Seal devices were not able to be deployed and patient required overnight observation stay to lay flat and monitor for bleeding from the site. Please see cardiology notes for details [facility] Disclaimer: The information contained in this section may have been updated after the patient was seen, as this information can be updated by other users. Medical History Abdominal bruit Abnormal ankle brachial index (JUSTICE) Allergic rhinitis CAD (coronary artery disease) Cardiac murmur Carotid artery disease Chronic cough Claudication Claudication COPD (chronic obstructive pulmonary disease) COPD exacerbation COPD mixed type Dyspnea on exertion Hearing Loss Hemoptysis Impacted cerumen Laceration of right ear canal Lung nodule Non-healing wound PAD (peripheral artery disease) Peripheral arterial disease Small cell lung cancer Smoker Smoking greater than 30 pack years Surgical History H/O angioplasty H/O endarterectomy History of cardiac cath History of carpal tunnel release Status post insertion of iliac artery stent Family History Other Asthma Social History (Updated 09/27/22 @ 10:19 by Joan Rosenberg RN) Smoking Status: Former smoker alcohol intake: current substance use type: denies use current occupational status: retired Travel in the last 8 weeks: None household members: spouse housing: house marital status: caffeine: Yes Exam Data for Last 24 hours Vital signs and Labs for Last 24 Hours: Temp Pulse Resp BP Pulse Ox 98.1 F 56 L 18 153/60 H 92 L 09/28/22 04:00 09/28/22 04:00 09/28/22 04:00 09/28/22 04:00 09/28/22 04:00 Laboratory Results - last 24 hr 09/27/22 10:15: WBC 9.7, RBC 3.88 L, Hgb 10.3 L, Hct 33.7 L, MCV 86.7, MCH 26.5 L, MCHC 30.6 L, RDW 19.2 H, Plt Count 388, MPV 7.3 L, Neut % (Auto) 80.7 H, Lymph % (Auto) 9.7 L, [place] % (Auto) 4.5, Eos % (Auto) 4.6, Baso % (Auto) 0.4, Neut # (Auto) 7.8, Lymph # (Auto) 0.9, [place] # (Auto) 0.4, Eos # (Auto) 0.5 H, Baso # (Auto) 0.0 09/27/22 10:15: PT 10.9, INR 1.01 09/27/22 10:15: Sodium 133 L, Potassium 4.0, Chloride 95 L, Carbon Dioxide 28, Anion Gap 14.0, BUN 10, Creatinine 0.60 L, Estimated Creat Clear 56, Estimated GFR 131, Est GFR ( Amer) 159, Glucose 106 H, Calcium 8.7 09/27/22 12:38: Activated Clotting Time 252 H* 09/27/22 15:30: SARS-CoV-2 (PCR) Not detected, Influenza A Untype (PCR) Not detected, Influenza Type B (PCR) Not detected I & O for Last 24 hours: Intake & Output 09/25/22 09/26/22 09/27/22 09/28/22 11:59 11:59 11:59 11:59 Output Total 1150 / 1150 Balance -1150 / -1150 Weight 140 lb 142 lb 12.8 oz Constitutional Constitutional: no acute distress *Routine HEENT Exam Head: Present normocephalic Eye: Present EOMI and PERRL ENT: Present mucous membranes dry and oropharynx clear *Routine Neck Exam Neck: Present supple; Absent lymphadenopathy *Routine Respiratory Exam Respiratory: Present CTA bilaterally *Routine Cardiovascular Exam Cardiovascular: Present RRR *Routine Abdominal Exam Abdominal: Present soft and distended
--- NOTE | 2022-09-28 08:48 | PC.NURSE ---
Pt's bp of 175/82 P: 69 Simon called to see if he would like the patient to get any meds before he is leaving today.
--- NOTE | 2022-09-28 09:08 | HMH.PHACL ---
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 DISCUSSED ATORVASTATIN 80 MG HS, ASPIRIN DR 81 MG DAILY, PLAVIX 75 MG DAILY, AND METOPROLOL SUCCINATE 50 MG DAILY.
--- NOTE | 2022-09-28 10:19 | EXP.CARD.PN ---
Subjective Subjective Date: 09/28/22 Time: 09:00 Principal diagnosis: PAD Interval history: This is a 77-year-old white gentleman who presented to the hospital for an outpatient runoff. The patient had successful angioplasty to the right SFA. The left external iliac artery was left alone and left he was to have [place] claudication 5 or 6. The patient will be on aspirin and Plavix for dual antiplatelet therapy. He states his pain in his lower extremities has improved significantly. He denies any chest pain or pressure. Denies any shortness of breath or edema. He denies any fever, chills, nausea, vomiting, diarrhea, PND orthopnea. runoff shows: Severe to critical napkin ring stenosis in the proximal right SFA Successful drug-coated balloon angioplasty to the proximal right SFA critical disease reduced to less than 10% producing excellent angiographic results and significantly improving inline flow distally Chronically subtotally occluded distal right SFA and right popliteal artery with extensive pregeniculate collaterals which provide three-vessel runoff below the right knee Subtotally occluded left SFA with poor angiographic runoff distally likely due to sheath obturation at the left external iliac artery PLAN 1. Continue medical management 2. At this time I do not recommend any manipulation of the left external iliac artery unless patient has [place] claudication class IV 5 or 6 3. Continue supportive care of the right lower extremity ulcer 4. Increasing inflow to the right leg should significantly improve the likelihood of ulcer healing.? Only in the event of limb threatening ischemia when I consider opening the right popliteal artery.? If this artery were going to be opened an right groin antegrade approach would be most appropriate 5. Continue risk factor modification 6. Consider hyperbaric chamber Exam Data for Last 24 hours Vital signs and Labs for Last 24 Hours: Temp Pulse Resp BP Pulse Ox 97.3 F L 69 18 175/82 H 96 09/28/22 08:00 09/28/22 08:00 09/28/22 08:00 09/28/22 08:00 09/28/22 08:00 Laboratory Results - last 24 hr 09/27/22 10:15: WBC 9.7, RBC 3.88 L, Hgb 10.3 L, Hct 33.7 L, MCV 86.7, MCH 26.5 L, MCHC 30.6 L, RDW 19.2 H, Plt Count 388, MPV 7.3 L, Neut % (Auto) 80.7 H, Lymph % (Auto) 9.7 L, [place] % (Auto) 4.5, Eos % (Auto) 4.6, Baso % (Auto) 0.4, Neut # (Auto) 7.8, Lymph # (Auto) 0.9, [place] # (Auto) 0.4, Eos # (Auto) 0.5 H, Baso # (Auto) 0.0 09/27/22 10:15: PT 10.9, INR 1.01 09/27/22 10:15: Sodium 133 L, Potassium 4.0, Chloride 95 L, Carbon Dioxide 28, Anion Gap 14.0, BUN 10, Creatinine 0.60 L, Estimated Creat Clear 56, Estimated GFR 131, Est GFR ( Amer) 159, Glucose 106 H, Calcium 8.7 09/27/22 12:38: Activated Clotting Time 252 H* 09/27/22 15:30: SARS-CoV-2 (PCR) Not detected, Influenza A Untype (PCR) Not detected, Influenza Type B (PCR) Not detected I & O for Last 24 hours: Intake & Output 09/25/22 09/26/22 09/27/22 09/28/22 23:59 23:59 23:59 23:59 Intake Total 0 / 0 Output Total 700 / 1150 450 / 450 Balance -700 / -1150 -450 / -450 Weight 142 lb 142 lb 12.8 oz Constitutional Constitutional: no acute distress and average body habitus *Routine HEENT Exam Head: Present normocephalic and atraumatic ENT: Present mucous membranes moist *Routine Neck Exam Neck: Present supple, full ROM and normal carotid upstroke; Absent JVD, carotid bruit or lymphadenopathy *Routine Respiratory Exam Respiratory: Present CTA bilaterally, normal respiratory effort, able to speak in complete sentences and symmetric chest movement *Routine Cardiovascular Exam Cardiovascular: Present RRR, Normal S1 and Normal S2; Absent murmur or gallop *Routine Abdominal Exam Abdominal: Present soft and normoactive bowel sounds; Absent tenderness, distended or organomegaly *Routine Extremities Exam Extremities: Present full ROM; Absent cyanosis, clubbing or edema *Routine Skin Exam Skin: Present warm 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
--- NOTE | 2022-09-28 10:41 | PC.NURSE ---
COURTESY TECH NOTE; ROUNDED ON PT 0825, PT DENIED NEED FOR ASSISTANCE WITH RESTROOM, DRINK, AND NEED TO REPOSITION IN BED. CALL LIGHT WITHIN REACH, NO FURTHER REQUESTS AT THIS TIME MELLO FOY
--- NOTE | 2022-09-29 13:32 | CARE MANAGER ---
Spoke with patient for post-discharge phone interview, no issues noted.
== END 2022-09-28 10:36 | disposition home or self-care (01) ==
LOC: 2ND 13:30
PROVIDERS: Internal Medicine; Admitting Provider Internal Medicine Adolescent Medicine; PCP Internal Medicine Adolescent Medicine; Visit Provider Internal Medicine Adolescent Medicine
DX: I70.235 Atherosclerosis of native arteries of right leg with ulceration of other part of foot; L97.512 Non-pressure chronic ulcer of other part of right foot with fat layer exposed; I77.1 Stricture of artery; Z95.1 Presence of aortocoronary bypass graft; M19.071 Primary osteoarthritis, right ankle and foot; I70.92 Chronic total occlusion of artery of the extremities; I11.0 Hypertensive heart disease with heart failure; I25.10 Atherosclerotic heart disease of native coronary artery without angina pectoris; Z79.899 Other long term (current) drug therapy; J44.9 Chronic obstructive pulmonary disease, unspecified; I25.810 Atherosclerosis of coronary artery bypass graft(s) without angina pectoris
CPT/HCPCS: G0378; 37224; 80048; 85025; 85347; 85610; 87635; 87636; 99152; 99153; C1725; C1766; C1769; C1894; C9803; J1644; J2405; J2720; Q9967; U0003; U0005

== ENCOUNTER → 2022-10-05 07:41 | Outpatient (CLI) | payer MEDICARE, OTHER, SELFPAY ==
--- NOTE | 2022-10-05 07:48 | CT_ITS ---
FINAL REPORT TECHNIQUE: After the administration of oral and intravenous contrast, axial images were obtained through the abdomen and pelvis by computed tomography. The study was performed with techniques to keep radiation dose as low as reasonably achievable, (ALARA). Individual dose reduction techniques using automated exposure control or adjustment of mA and/or kV according to the patient's size were employed. CLINICAL HISTORY: LUNG CANCER COMPARISON: 06/26/2022 FINDINGS: Abdomen: The lung bases are clear. There are multiple decreased attenuation cysts in the liver unchanged since the prior exam of 06/26. A few small gallstones are noted in the gallbladder.. The spleen and pancreas appear unremarkable. The bilateral adrenal enlargement, more prominent on the left than on the right, remains present and most likely represents either adenomas or adrenal hyperplasia. Multiple cysts are once again noted in the kidneys, unchanged. There is dense vascular calcification noted in the abdominal aorta. Bilateral iliac artery stents are present. The aorta is normal in caliber. There is no free fluid or adenopathy. Pelvis: The appendix is not identified. The urinary bladder is unremarkable. Extensive diverticulosis is noted in the sigmoid colon. There is no free fluid or adenopathy. The small right L5 area of low-density is unchanged since the prior CT of June 26. IMPRESSION: No acute intra-abdominal process. Small gallstones present in the gallbladder. No significant change noted since the prior CT of June 26, 2022. Reviewed, Interpreted and Dictated by Jakub Jansen MD Transcribed by Loreto Gonzalez Authenticated and [facility]
--- NOTE | 2022-10-05 08:03 | CT_ITS ---
FINAL REPORT TECHNIQUE: Routine axial images were obtained from the lung apices to below the diaphragm following IV contrast administration. Individualized dose reduction techniques using automated exposure control or adjustment of the mA and/or kV according to the patient size were employed. CLINICAL HISTORY: LUNG CANCER COMPARISON: 06/26/2022 FINDINGS: Mild centrilobular emphysema is once again noted. The 5 mm right upper lobe nodule noted on the prior CT of June 26 is stable in appearance. There are 2 new nodules, immediately adjacent, in the posterior left upper lobe measuring up to 6 mm in diameter. These are best seen on images 16 and 17 of series 4. The previously mentioned 11 density in the left lower lobe seen on the prior exam now measures 8 mm, with associated adjacent stranding. No new infiltrates or effusions are identified. No significant hilar or mediastinal adenopathy is present. IMPRESSION: 5 mm right upper lobe nodule noted previously is stable. Two new small nodules measuring up to 6 mm in the posterior left upper lobe since the prior exam. Previously mentioned left lower lobe 11 mm density now measures 8 mm. Reviewed, Interpreted and Dictated by Jakub Jansen MD Transcribed by Loreto Gonzalez Authenticated and [facility]
== END ==
PROVIDERS: PCP Internal Medicine Adolescent Medicine; Visit Provider Internal Medicine Medical Oncology
DX: R06.02 Shortness of breath (principal); C34.92 Malignant neoplasm of unspecified part of left bronchus or lung
CPT/HCPCS: 71260; 74177; Q9967

== ENCOUNTER → 2022-10-09 16:34 | Outpatient (CLI) | payer MEDICARE, OTHER, SELFPAY ==
[2022-10-09 17:56] LABS: Basophils % 0.4 % (0.1-2.0); Eosinophils # 0.4 K/mm3 (0.0-0.4); Hematocrit 30.5 % (42.0-52.0); Hemoglobin 9.8 g/dL (14.1-18.0); Lymphocytes % 11.6 % (10-50); Mean Corpuscular Hemoglobin 26.6 pg (27.0-31.2); Mean Corpuscular Volume 83.2 fl (80-94); Mean Platelet Volume 7.4 fl (7.4-10.4); Monocytes # 0.7 K/mm3 (0.1-1.0); Monocytes % 8.4 % (1.7-9.3); Neutrophils # 6.4 K/mm3 (1.8-7.8); Neutrophils % 74.5 % (37.0-80.0); Platelet Count 294 K/mm3 (142-424); Red Blood Count 3.67 M/mm3 (4.60-6.20); Red Cell Distribution Width 18.6 % (11.5-17.5); White Blood Count 8.6 K/mm3 (4.8-10.8)
[2022-10-09 18:11] LABS: Alanine Aminotransferase 24 U/L (12-78); Alkaline Phosphatase 97 U/L (38-126); Anion Gap 15.7 mEq/L (5-15); Aspartate Amino Transferase 31 U/L (17-59); Bilirubin,Total 0.3 mg/dl (0.2-1.3); Blood Urea Nitrogen 18 mg/dl (9-20); Calcium 8.9 mg/dl (8.4-10.2); Carbon Dioxide 28 mmol/L (22.0-30.0); Chloride 89 mmol/L (98-107); Estimated Glomerular Filt Rate 131 ml/min (>60); GFR (African American) 159 ML/MIN (>60); Globulin 3.9 g/dL (1.3-3.2); Glucose 80 mg/dl (74-100); Potassium 4.7 mmoL/L (3.5-5.1); Sodium 128 mmol/L (136-145); Total Protein,Serum 7.9 g/dl (6.3-8.2)
[2022-10-09 18:15] LABS: C-Reactive Protein 10.7 mg/L (0-4)
[2022-10-09 18:47] LABS: Erythrocyte Sedimentation Rate 100 mm/hr (0-20)
== END ==
PROVIDERS: PCP Internal Medicine Adolescent Medicine; Visit Provider Podiatrist
DX: Z51.89 Encounter for other specified aftercare (principal); Z85.118 Personal history of other malignant neoplasm of bronchus and lung
CPT/HCPCS: 80053; 85025; 85651; 86140

== ENCOUNTER 2022-10-18 10:55 | Outpatient (CLI) | payer MEDICARE, OTHER, SELFPAY | END 2022-10-18 11:10 | disposition home or self-care (01) | LOC: INF 10:56 | PROVIDERS: PCP Internal Medicine Adolescent Medicine; Visit Provider Internal Medicine Medical Oncology | DX: Z45.2 Encounter for adjustment and management of vascular access device (principal) | CPT/HCPCS: G0463 ==

== ENCOUNTER → 2022-10-26 14:34 | Outpatient (CLI) | payer MEDICARE, OTHER, SELFPAY ==
--- NOTE | 2022-10-26 | CA_ITS ---
FINAL REPORT CLINICAL HISTORY: .pad with hx-bypass stentings and recent angioplasty, cellulitis, Lung CA, Edema FINDINGS: Color Doppler, duplex Doppler and compression sonography of the bilateral lower extremities was performed. There is no evidence of deep venous thrombosis from the level of the groin to the calf. The deep veins are patent and compressible. IMPRESSION: No evidence of deep venous thrombosis bilateral lower extremities. Reviewed, Interpreted and Dictated by Karri Roldan III, MD Transcribed by Bernadette Nolasco Authenticated and [facility]
== END ==
PROVIDERS: PCP Internal Medicine Adolescent Medicine; Visit Provider Nurse Practitioner Family
DX: R60.0 Localized edema (principal)
CPT/HCPCS: 93970

== ENCOUNTER → 2022-11-03 13:00 | Outpatient (CLI) | payer MEDICARE, OTHER, SELFPAY ==
[2022-11-03 13:45] LABS: Anion Gap 14.8 mEq/L (5-15); Blood Urea Nitrogen 13 mg/dl (9-20); Calcium 9.1 mg/dl (8.4-10.2); Carbon Dioxide 25 mmol/L (22.0-30.0); Chloride 97 mmol/L (98-107); Estimated Glomerular Filt Rate 110 ml/min (>60); GFR (African American) 133 ML/MIN (>60); Glucose 89 mg/dl (74-100); Potassium 3.8 mmoL/L (3.5-5.1); Sodium 133 mmol/L (136-145)
[2022-11-03 13:48] LABS: Basophils % 0.2 % (0.1-2.0); Eosinophils # 0.4 K/mm3 (0.0-0.4); Eosinophils % 5.4 % (0.1-12.0); Hematocrit 30.2 % (42.0-52.0); Hemoglobin 10.3 g/dL (14.1-18.0); Lymphocytes # 0.8 K/mm3 (0.7-4.5); Lymphocytes % 9.8 % (10-50); Mean Corpuscular HGB Conc 34.3 g/dL (31.8-35.4); Mean Corpuscular Volume 84.6 fl (80-94); Mean Platelet Volume 6.3 fl (7.4-10.4); Monocytes # 0.6 K/mm3 (0.1-1.0); Monocytes % 7.3 % (1.7-9.3); Neutrophils % 77.2 % (37.0-80.0); Platelet Count 254 K/mm3 (142-424); Red Blood Count 3.57 M/mm3 (4.60-6.20); Red Cell Distribution Width 17.6 % (11.5-17.5); White Blood Count 7.8 K/mm3 (4.8-10.8)
== END ==
PROVIDERS: Surgery; PCP Nurse Practitioner Family
DX: R60.9 Edema, unspecified (principal)
CPT/HCPCS: 36415; 80048; 85025

== ENCOUNTER 2023-01-03 08:32 | Outpatient (CLI) | payer MEDICARE, OTHER, SELFPAY ==
[2023-01-03 08:30] VITALS: BMI 24.7
--- NOTE | 2023-01-03 08:50 | CT_ITS ---
FINAL REPORT TECHNIQUE: Axial CT images of the abdomen and pelvis were obtained before and after the administration of IV contrast. Oral contrast was administered.This study was performed with techniques to keep radiation doses as low as reasonably achievable (ALARA). Individualized dose reduction techniques using automated exposure control or adjustment of mA and/or kV according to the patient's size were employed. CLINICAL HISTORY: LUNG CANCER COMPARISON: 10/05/2022 FINDINGS: Abdomen: There is a new focus of linear density in the left lung base, likely scar or atelectasis. The heart is normal in size. There are multiple low-attenuation foci in the liver which have an appearance most compatible with hepatic cysts, which are stable. Gallstones are once again noted in the gallbladder. . The spleen is unremarkable. There is mild adrenal hyperplasia present bilaterally, unchanged. The pancreas has an unremarkable appearance. There are multiple bilateral nonenhancing low densities in the kidneys, compatible with multiple bilateral cysts. These are more prominent in the left kidney than the right. There is another density in the left kidney measuring 9 mm in diameter, best seen on image #19 of series 9, that may represent a small adenoma. There is dense vascular calcification of the aorta and abdominal vessels. There is no free fluid or adenopathy. No mass or abnormal fluid collection is seen. Pelvis: The appendix is not well visualized. The urinary bladder is unremarkable. Bilateral iliac stents are present. There is mild right inguinal stranding that may be the sequela of prior surgery. There is no evidence of mass or adenopathy. There is no evidence of bowel obstruction. IMPRESSION: No acute intra-abdominal process. Multiple bilateral renal cysts are once again noted, and gallstones are present in the gallbladder, also unchanged. Reviewed, Interpreted and Dictated by Jakub Jansen MD Transcribed by Loreto Gonzalez Authenticated and [facility]
--- NOTE | 2023-01-03 08:50 | CT_ITS ---
FINAL REPORT TECHNIQUE: Before and after the administration of intravenous contrast, axial images through the chest were performed by computed tomography. This study was performed with techniques to keep radiation doses as low as reasonably achievable, (ALARA). Individualized dose reduction techniques using automated exposure control or adjustment of mA and/or kV according to the patient's size were employed. CLINICAL HISTORY: LUNG CANCER COMPARISON: 10/05/2022 FINDINGS: CT CHEST WITH AND WITHOUT CONTRAST: When compared to the prior exam of September 2022, the 2 nodules in the medial left upper lobe remain present. The larger more medial nodule now measures 12.3 mm, was 6 mm on the prior exam, best seen on image #18 of series 4. The smaller more lateral nodule remains unchanged in appearance. The right upper lobe nodule noted previously is stable as well. There is an abnormal opacity in the left suprahilar region, also stable, and likely post inflammatory. No evidence of mediastinal or hilar adenopathy is noted. There is new linear density present in the left lung base when compared to the prior exam, with an appearance most suggestive of scar or atelectasis. IMPRESSION: One of the left upper lobe nodules noted on the previous CT is significantly larger, now measuring 12.3 mm in diameter. The significant increase in size is concerning for recurrent neoplasm. This lesion may not be amenable to biopsy secondary to its size, and PET CT might be helpful for further evaluation. Reviewed, Interpreted and Dictated by Jakub Jansen MD Transcribed by Loreto Gonzalez Authenticated and [facility]
[2023-01-03 09:22] LABS: Basophils % 0.4 % (0.1-2.0); Eosinophils # 0.7 K/mm3 (0.0-0.4); Eosinophils % 10.9 % (0.1-12.0); Hematocrit 38.5 % (42.0-52.0); Hemoglobin 11.9 g/dL (14.1-18.0); Lymphocytes # 1.1 K/mm3 (0.7-4.5); Lymphocytes % 16.5 % (10-50); Mean Corpuscular HGB Conc 30.8 g/dL (31.8-35.4); Mean Corpuscular Hemoglobin 26.4 pg (27.0-31.2); Mean Corpuscular Volume 85.7 fl (80-94); Mean Platelet Volume 7.6 fl (7.4-10.4); Monocytes # 0.5 K/mm3 (0.1-1.0); Monocytes % 7.4 % (1.7-9.3); Neutrophils # 4.2 K/mm3 (1.8-7.8); Neutrophils % 64.8 % (37.0-80.0); Platelet Count 225 K/mm3 (142-424); Red Blood Count 4.49 M/mm3 (4.60-6.20); Red Cell Distribution Width 18.2 % (11.5-17.5); White Blood Count 6.5 K/mm3 (4.8-10.8)
[2023-01-03 09:27] LABS: Alanine Aminotransferase 28 U/L (12-78); Albumin Level 4.4 g/dl (3.5-5.0); Albumin/Globulin Ratio 1.1 (1.1-1.8); Alkaline Phosphatase 94 U/L (38-126); Anion Gap 13.2 mEq/L (5-15); Aspartate Amino Transferase 40 U/L (17-59); Bilirubin,Total 0.4 mg/dl (0.2-1.3); Blood Urea Nitrogen 19 mg/dl (9-20); Calcium 9.5 mg/dl (8.4-10.2); Carbon Dioxide 27 mmol/L (22.0-30.0); Chloride 102 mmol/L (98-107); Creatinine Clearance Estimated 62 mL/min (50-200); Estimated Glomerular Filt Rate 94 ml/min (>60); GFR (African American) 114 ML/MIN (>60); Globulin 3.9 g/dL (1.3-3.2); Glucose 101 mg/dl (74-100); Potassium 4.2 mmoL/L (3.5-5.1); Sodium 138 mmol/L (136-145); Total Protein,Serum 8.3 g/dl (6.3-8.2)
== END 2023-01-03 08:45 | disposition home or self-care (01) ==
LOC: RAD 08:32
PROVIDERS: PCP Nurse Practitioner Family; Visit Provider Internal Medicine Medical Oncology
DX: Z85.118 Personal history of other malignant neoplasm of bronchus and lung (principal); C34.92 Malignant neoplasm of unspecified part of left bronchus or lung
CPT/HCPCS: 36415; 71270; 74178; 80053; 85025; Q9967

== ENCOUNTER 2023-02-25 09:03 | Inpatient (IN) | payer MEDICARE, OTHER, SELFPAY ==
[2023-02-25] VITALS (34 sets, daily range): BP systolic 73–193; BP diastolic 37–74; PULSE 62–99; RESP 14–21; TEMP 36.5–36.9; O2SAT 88–99; BMI 24.2; BMI 25.0
--- NOTE | 2023-02-25 09:21 | HMH.EDGENADL ---
Discharge Plan Disposition Patient Disposition: Admitted Chief Complaint: Abdominal Pain Prescriptions Prescriptions: No Action Trelegy Ellipta 100-62.5-25 mcg blister with device 1 inh inhalation DAILY 90 Days Qty: 90 2RF isosorbide mononitrate 60 mg tablet extended release 24 hr 60 mg PO DAILY metoprolol tartrate 25 mg tablet 50 mg PO DAILY aspirin [Adult Low Dose Aspirin] 81 mg tablet,delayed release (DR/EC) 81 mg PO DAILY folic acid 1 mg tablet 1 mg PO DAILY albuterol sulfate [Ventolin HFA] 90 mcg/actuation HFA aerosol inhaler 2 puff IH Q6HP PRN (Reason: Shortness Of Breath) albuterol sulfate 1.25 mg/3 mL solution for nebulization 1.25 mg inhalation Q6HP PRN (Reason: Shortness Of Breath Or Wheezing) Patient Comments: USE 1 VIAL IN NEBULIZER EVERY 6 HOURS NEEDED FOR SHORTNESS OF BREATH FOR WHEEZING multivitamin Tablet 1 tab PO DAILY clopidogrel 75 mg tablet See Rx Instructions .ROUTE .COMPLEX Qty: 90 3RF Dose Instruction: TAKE 1 TABLET BY MOUTH ONCE DAILY FOR BLOOD THINNER Rx Instructions: TAKE 1 TABLET BY MOUTH ONCE DAILY FOR BLOOD THINNER fluticasone propionate [Flonase Allergy Relief] 50 mcg/actuation spray,suspension 2 spray intranasal DAILY Rx Instructions: administer into each nostril pantoprazole 40 mg tablet,delayed release (DR/EC) 40 mg PO DAILY Patient Comments: TAKE 1 TABLET BY MOUTH ONCE DAILY mirtazapine 15 mg tablet 7.5 mg PO HS Trelegy Ellipta 100-62.5-25 mcg blister with device 1 inh INHALATION DAILY Patient Comments: INHALE 1 PUFF BY MOUTH ONCE DAILY FOR 90 DAYS atorvastatin 80 mg tablet 80 mg PO DAILY clonazepam 0.5 mg tablet 0.5 mg PO HS PRN (Reason: sleep) Qty: 10 0RF Rx Instructions: administer 30 minutes before bedtime Referrals Follow up/Referrals: Curtis Montes MD [Primary Care Provider] - See instructions Clinical Impressions Clinical Impression: Cecum perforation, Acute abdomen, Sepsis Instructions Patient Instructions: DI for Acute Abdominal Pain Discharge ED Provider: Pedro Lewis General Adult HPI General Chief complaint: Abdominal Pain Stated complaint: lower side pain,abd pain, vomiting Time Seen by Provider: 02/25/23 09:07 History of Present Illness HPI narrative: 77-year-old male, history of hypertension, hyperlipidemia, PAD, CAD status post CABG, COPD presenting with abdominal pain. Patient states that abdominal pain started last night, 02/24 in the late evening. Took 2 Tylenol, this was able to help him go to sleep, but he woke up early this a.m. on 02/25 with acute abdominal pain. Was initially 4 out of 10, now 6 or 7 out of 10. Sore, does not radiate. Not made worse by anything in particular, including food. Not made better by anything in particular. Not associated with urinary symptoms, GI symptoms, but patient has had decreased p.o. intake today due to lack of appetite. Denies fevers or chills, abdominal surgical history, or any other concerns. Related Data Home Medications Medication Instructions Recorded Confirmed albuterol sulfate 90 mcg/actuation 2 puff inhalation Q6HP PRN 08/27/17 01/18/23 aerosol inhaler (Ventolin HFA) Shortness Of Breath aspirin 81 mg tablet,delayed 81 mg PO DAILY Heart health 08/27/17 01/18/23 release (Adult Low Dose Aspirin) folic acid 1 mg tablet 1 mg PO DAILY Supplement 08/27/17 01/18/23 albuterol sulfate 1.25 mg/3 mL 1.25 mg inhalation Q6HP PRN 07/10/22 01/18/23 solution for nebulization Shortness Of Breath Or Wheezing fluticasone propionate 50 2 spray intranasal DAILY Allergies 08/18/22 01/18/23 mcg/actuation nasal spray,suspension (Flonase Allergy Relief) fluticasone fur. 100 mcg-umeclid 1 inh inhalation DAILY COPD 09/01/22 01/18/23 62.5 mcg-vilant 25 mcg inhalat.powder (Trelegy Ellipta) mirtazapine 15 mg tablet 7.5 mg PO HS Mood 09/01/22 01/18/23 pantoprazo
[2023-02-25 09:39] LABS: Microscopic, Urine URINE MICROSCOPIC (MICROSCOPIC)
[2023-02-25 09:40] LABS: Appearance,Urine CLEAR (Clear); Bilirubin,Urine Negative (Negative); Blood, Urine Negative (Negative); Color,Urine YELLOW (Yellow); Glucose,Urine (UA) Negative (Negative); Ketones,Urine Negative (Negative); Leukocyte Esterase,Urine Negative (Negative); Nitrate,Urine Negative (Negative); PH,Urine 6.5 (5.0-8.5); Protein,Urine 1+ (Negative); Urobilinogen,Urine 0.2 EU/dl (0.2)
[2023-02-25 10:03] LABS: Squamous Epithelial Cell,Urine Occasional #/hpf (0-5); WBC,Urine Occasional #/hpf (0-3)
[2023-02-25 10:32] LABS: Basophils % 0.2 % (0.1-2.0); Eosinophils # 0.1 K/mm3 (0.0-0.4); Eosinophils % 0.8 % (0.1-12.0); Hematocrit 33.9 % (42.0-52.0); Hemoglobin 11.1 g/dL (14.1-18.0); Lymphocytes # 0.4 K/mm3 (0.7-4.5); Lymphocytes % 2.5 % (10-50); Mean Corpuscular HGB Conc 32.7 g/dL (31.8-35.4); Mean Corpuscular Hemoglobin 27.6 pg (27.0-31.2); Mean Corpuscular Volume 84.4 fl (80-94); Mean Platelet Volume 7.7 fl (7.4-10.4); Monocytes # 0.5 K/mm3 (0.1-1.0); Monocytes % 3.1 % (1.7-9.3); Neutrophils # 15.1 K/mm3 (1.8-7.8); Neutrophils % 93.4 % (37.0-80.0); Platelet Count 269 K/mm3 (142-424); Red Blood Count 4.01 M/mm3 (4.60-6.20); Red Cell Distribution Width 18.4 % (11.5-17.5); White Blood Count 16.2 K/mm3 (4.8-10.8)
[2023-02-25 10:40] LABS: MANUAL DIFFERENTIAL MANUAL DIFFERENTIAL (MANUAL DIFF)
[2023-02-25 10:42] LABS: Alanine Aminotransferase 34 U/L (12-78); Albumin Level 4.3 g/dl (3.5-5.0); Albumin/Globulin Ratio 1.2 (1.1-1.8); Alkaline Phosphatase 107 U/L (38-126); Anion Gap 16.2 mEq/L (5-15); Aspartate Amino Transferase 36 U/L (17-59); Bilirubin,Total 0.6 mg/dl (0.2-1.3); Blood Urea Nitrogen 18 mg/dl (9-20); Calcium 9.1 mg/dl (8.4-10.2); Carbon Dioxide 26 mmol/L (22.0-30.0); Chloride 99 mmol/L (98-107); Creatinine Clearance Estimated 60 mL/min (50-200); Estimated Glomerular Filt Rate 110 ml/min (>60); GFR (African American) 133 ML/MIN (>60); Globulin 3.7 g/dL (1.3-3.2); Glucose 146 mg/dl (74-100); Lipase 37 U/L (23-300); Potassium 4.2 mmoL/L (3.5-5.1); Sodium 137 mmol/L (136-145)
--- NOTE | 2023-02-25 10:56 | CT_ITS ---
PROCEDURE INFORMATION: Exam: CT Abdomen And Pelvis With Contrast Exam date and time: 02/25/2023 12:12 PM Age: 77 years old Clinical indication: Abdominal pain; Additional info: Rlq pain and guarding <24h. History of lung CA TECHNIQUE: Imaging protocol: Computed tomography of the abdomen and pelvis with contrast. Radiation optimization: All CT scans at this facility use at least one of these dose optimization techniques: automated exposure control; mA and/or kV adjustment per patient size (includes targeted exams where dose is matched to clinical indication); or iterative reconstruction. Contrast material: ISOVUE; Contrast volume: 75 ml; Contrast route: IV; REPORTING DATA: Count of CT and Cardiac NM exams in prior 12 months: This patient has received 10 known [address]s and 0 known cardiac nuclear medicine studies in the 12 months prior to the current study. COMPARISON: CT ABDOMEN PELVIS WO/W CON 01/03/2023 9:42 AM FINDINGS: Liver: Subcentimeter hypodensities throughout the liver are too small to accurately characterize, but not substantially changed, therefore likely benign. Subcentimeter hyperenhancing foci throughout the liver also small to accurately characterize Gallbladder and bile ducts: Gallbladder is distended without radiopaque cholelithiasis. No biliary ductal dilation. Pancreas: No peripancreatic fluid stranding. No main pancreatic ductal dilation. Spleen: No splenomegaly. Adrenal glands: The adrenal glands are normal. Kidneys and ureters: Scattered subcentimeter hypodensities in both kidneys are too small to accurately characterize. There are variably-sized renal cysts. Nephrograms are symmetric. No nephrolithiasis or hydroureteronephrosis on either side. No solid lesions Stomach and bowel: There are moderate inflammatory changes encompassing the cecum and proximal ascending colon. Scattered colonic diverticula noted. Appendix: A normal appendix is identified. Intraperitoneal space: There is no evidence of free intraperitoneal or pelvic fluid. Vasculature: The aorta demonstrates severe atherosclerotic calcification. Severe stenosis at superior mesenteric artery origin Lymph nodes: No lymphadenopathy. Urinary bladder: Urinary bladder is unremarkable. Urinary bladder is unremarkable. Reproductive: Prostate is enlarged. Bones/joints: No definitive osseous lesions. Soft tissues: Unremarkable. IMPRESSION: 1. Moderate inflammatory changes encompassing the cecum and proximal ascending colon suspicious for infectios/inflammatory colitis/diverticulitis. Appendix is normal As an underlying colonic malignancy cannot be excluded, a follow-up examination after a course of treatment is recommended if clinically warranted. 2. Severe aortoiliac atherosclerosis COMMENTS: Consistent with the [employer]'s Incidental Findings Committee white paper (J Am Benjie Radiol 2018): Any incidental renal lesion less than 1 cm or classified as too small to characterize, or any incidental cystic renal lesion characterized as simple-appearing, is likely benign. No follow-up imaging is recommended for these lesions per consensus recommendations based on imaging criteria.
[2023-02-25 11:03] LABS: Coronavirus 19, PCR Not Detected (NotDetected); Influenza A, PCR Not Detected (NotDetected); Influenza B, PCR Not Detected (NotDetected)
--- NOTE | 2023-02-25 11:08 | PC.NURSE ---
pt to ct
[2023-02-25 11:27] LABS: Lymphocytes % 4 % (10-50); Monocytes % 5 % (2-9); Neutrophils % 91 % (42-76); Total Cells Counted 100
[2023-02-25 11:32] LABS: Hypochromasia 1+; Platelet Estimate Normal
--- NOTE | 2023-02-25 13:28 | EXP.GEN.HP ---
HPI HPI HPI: 77yo man presents with RLQ abdominal pain since last night. He admits to progressively worsening pain that awakened him out of sleep. Worse with time. Pain medicine makes it some better but now it hurts on both sides of the abdomen. Never had any episodes like this in the past. Incomplete colonoscopy in the past. Last BM yesterday. [facility] Disclaimer: The information contained in this section may have been updated after the patient was seen, as this information can be updated by other users. Medical History Abdominal bruit Abnormal ankle brachial index (JUSTICE) Allergic rhinitis CAD (coronary artery disease) Cardiac murmur Carotid artery disease Chronic cough Claudication Claudication COPD (chronic obstructive pulmonary disease) COPD exacerbation COPD mixed type Dyspnea on exertion Hearing Loss Hemoptysis Impacted cerumen Laceration of right ear canal Lung nodule Non-healing wound PAD (peripheral artery disease) Peripheral arterial disease PVD (peripheral vascular disease) Small cell lung cancer Smoker Smoking greater than 30 pack years Surgical History H/O angioplasty H/O endarterectomy History of cardiac cath History of carpal tunnel release Status post insertion of iliac artery stent Family History Other Asthma Social History Smoking Status: Never smoker alcohol intake: current substance use type: denies use current occupational status: retired Travel in the last 8 weeks: None household members: spouse housing: house marital status: caffeine: Yes Review of Systems Review of Systems Review of systems:: pertinent systems reviewed and negative unless documented below *Cardiovascular Cardiovascular: Denies chest pain at rest, Denies chest pain with activity and Reports claudication *Respiratory Respiratory: Reports system reviewed and no additional complaints, except as documented *Gastrointestinal Gastrointestinal: Reports system reviewed and no additional complaints, except as documented Meds Home Medications and Allergies Home Medications Medication Instructions Recorded Confirmed Type albuterol sulfate 90 mcg/actuation 2 puff inhalation Q6HP PRN 08/27/17 01/18/23 History aerosol inhaler (Ventolin HFA) Shortness Of Breath aspirin 81 mg tablet,delayed 81 mg PO DAILY Heart health 08/27/17 01/18/23 History release (Adult Low Dose Aspirin) folic acid 1 mg tablet 1 mg PO DAILY Supplement 08/27/17 01/18/23 History albuterol sulfate 1.25 mg/3 mL 1.25 mg inhalation Q6HP PRN 07/10/22 01/18/23 History solution for nebulization Shortness Of Breath Or Wheezing fluticasone propionate 50 2 spray intranasal DAILY Allergies 08/18/22 01/18/23 History mcg/actuation nasal spray,suspension (Flonase Allergy Relief) fluticasone fur. 100 mcg-umeclid 1 inh inhalation DAILY COPD 09/01/22 01/18/23 History 62.5 mcg-vilant 25 mcg inhalat.powder (Trelegy Ellipta) mirtazapine 15 mg tablet 7.5 mg PO HS Mood 09/01/22 01/18/23 History pantoprazole 40 mg tablet,delayed 40 mg PO DAILY Acid reflux 09/01/22 01/18/23 History release multivitamin 1 tab PO DAILY Supplement 09/25/22 01/18/23 History atorvastatin 80 mg tablet 80 mg PO DAILY High cholesterol 09/27/22 01/18/23 History clonazepam 0.5 mg tablet 0.5 mg PO HS PRN sleep #10 tabs 09/28/22 01/18/23 Rx fluticasone fur. 100 mcg-umeclid 1 inh inhalation DAILY 90 days #90 01/18/23 01/18/23 Rx 62.5 mcg-vilant 25 mcg ea inhalat.powder (Trelegy Ellipta) isosorbide mononitrate 60 mg 60 mg PO DAILY 01/18/23 01/18/23 History tablet,extended release 24 hr metoprolol tartrate 25 mg tablet 50 mg PO DAILY 01/18/23 01/18/23 History clopidogrel 75 mg tablet See Rx Instructions .Route 02/07/23 Rx .COMPLEX #90 tabs New Prescriptions to Start Prescriptions: Allergies
--- NOTE | 2023-02-25 13:45 | PC.NURSE ---
pt was shave from upper chest area to lower abdomen and tape was taken around area shaved to collect loose hairs placed in a pt gown and non skid socks now waiting to go to surgery
--- NOTE | 2023-02-25 15:03 | P.PNANES_ITS ---
[facility] Disclaimer: The information contained in this section may have been updated after the patient was seen, as this information can be updated by other users. Medical History Abdominal bruit Abnormal ankle brachial index (JUSTICE) Allergic rhinitis CAD (coronary artery disease) Cardiac murmur Carotid artery disease Chronic cough Claudication Claudication COPD (chronic obstructive pulmonary disease) COPD exacerbation COPD mixed type Dyspnea on exertion Hearing Loss Hemoptysis Impacted cerumen Laceration of right ear canal Lung nodule Non-healing wound PAD (peripheral artery disease) Peripheral arterial disease PVD (peripheral vascular disease) Small cell lung cancer Smoker Smoking greater than 30 pack years Surgical History H/O angioplasty H/O endarterectomy History of cardiac cath History of carpal tunnel release Status post insertion of iliac artery stent Family History Other Asthma Social History Smoking Status: Never smoker alcohol intake: current substance use type: denies use current occupational status: retired Travel in the last 8 weeks: None household members: spouse housing: house marital status: caffeine: Yes [facility] Anesthesia Checklist Patient Identification Patient Identification: Arm Band, Family and Verbal (Name & ) Structural Data Admitted From: Emergency Dept Planned Operative Procedure/s: Expl. Laparotomy Consent for Planned Operative Procedure(s) Verified: Yes Verified Documents: Surgical Consent and History and Physical NPO Status Verified Time NPO: 09:00 Chart Verification Results Verified: CBC, BMP, ECG and Chest Xray Additional verifications Patient : No Anesthesia Reactions: No Hx Blood Transfusions: Yes Blood Transfusion Reaction: No Cephalosporin Allergy: No Cardiovascular Assessment Heart Sounds: S1 & S2 Pulse Rhythm: Irregular Peripheral Edema: No Airway Assessment Mallampati Score:: Class II C-Spine Mobility Assessed: Yes TMJ Mobility Assessed: Yes Dentition: Edentulous Neurological Assessment Level of Consciousness: Awake (Profoundly [place]), Alert, Appropriate and Follows Commands Hx Seizures: No Numbness or tingling in extremities: No Anesthesia Plan Anesthesia Risk discussed: Yes Anesthesia Plan: Verified ASA Class: III Anesthesia Type: General
--- NOTE | 2023-02-25 16:24 | P.OP_ITS ---
Date of procedure: 02/25/23 Pre-op Diagnosis:: Colitis, acute abdomen Post-op Diagnosis:: Ischemic right colon with microperforation Procedure performed:: Exploratory Laparotomy with Right hemicolectomy Surgeon:: Servando Dasilva MD [employer]IL[employer]AT[employer] SUPERVISOR:: Other (Jenny Zayas) Anesthesia: GETA Estimated blood loss (mL): 100 Operative findings:: Ischemic right colon Operative note:: Patient taken to the operating room and placed in the supine position. General anesthesia instituted without complication. Abdomen was prepped and draped in usual sterile fashion and a brief surgical pause was performed. I began the procedure with a midline laparotomy incision. I dissected down through the subcutaneous tissue to the fascia and the fascia was opened with cautery and the peritoneum opened bluntly. I placed a [place]. I then began the mobilization of the right colon by dividing the white line of Toldt on the right side and mobilizing the hepatic flexure. I was able to visualize the duodenum and it was swept out of the way. I then dissected around the ileocolic vessels and clamped them. The right colon was ischemic with evidence of microperforation with purulence surrounding the cecum. I then divided the ileocolic vessels and suture-ligated both sides. I then used a Enseal device and divided the mesentery up to the terminal ileum. Terminal ileum was then divided with a LELA 75 stapler. I then divided the transverse colon with a LELA 75 stapler as well. Both ends appeared healthy and well vascularized and there was punctate bleeding at the staple line. I decided to perform a arps-tu-coxq anastomosis. Using 3-0 Nurolon I sutured the terminal ileum to the transverse colon. I then made 2 small enterotomies. I then performed a stapled [id number] anastomosis with the LELA stapler. I closed the common enterotomy with a layer of 3-0 chromic suture and a layer of interrupted Nurolon Lembert sutures. I then closed the common mesenteric defect with 3-0 Nurolon in [id number] fashion. I then did a thorough examination of the abdomen and there were no other concerning processes. I irrigated with warm saline and closed the fascia with #1 looped PDS suture x2 and multiple #1 interrupted Vicryl's. I irrigated the subcu space and closed with skin apurva and a sterile dressing was applied. He tolerated the procedure very well and was awoken from anesthesia and transferred to the PACU in stable condition. Condition: stable Disposition: floor Specimens:: Right colectomy Complications:: None
--- NOTE | 2023-02-25 16:46 | P.PNANES_ITS ---
[facility] Anesthesia Record Part I Anesthesia Record I Intake, IV Amount: 1,500 Hydration: Adequate Estimated blood loss (mL): 100 Urine output (mL): 250 Blood Products used (#): none Blood Pressure: 128/65 SaO2: 94 Pulse Rate: 79 Airway Patency: Patent Respiratory Rate: 16 Temperature: 97.7 F Patient is:: Awake (Talking) Stable to PACU at:: 16:20
--- NOTE | 2023-02-25 16:53 | PC.NURSE ---
arrived from surgery by frank
--- OUTSIDE RECORDS SUMMARY | 2023-02-25 16:53 | XMS_ITS | Clinical Summary ---
Author Name Unknown Address [address] [place] [address] Phone Organization [facility] Address [address] [place] [phone] Phone Care Team Providers Care Art Psychotherapist Name Role Phone Pino Pope Unavailable Unavailable Conditions or Problems No information available. Medications No information available. Medications Administered No information available. Allergies, Adverse Reactions, Alerts No information available. Results No information available. Plan of Care No information available. Procedures No information available. Vital Signs No information available. Immunizations No information available. Advance Directives No information available.
--- NOTE | 2023-02-25 18:14 | PC.WOUNDNOTE ---
wound to right inner ankle 3.5 cm/3cm
--- NOTE | 2023-02-25 18:15 | PC.WOUNDNOTE ---
3cm x 2 cm wound to right holt
[2023-02-26] VITALS (9 sets, daily range): BP systolic 104–183; BP diastolic 45–84; PULSE 74–100; RESP 14–22; TEMP 36.6–36.9; O2SAT 91–100; BMI 25.6
--- NOTE | 2023-02-26 01:38 | PC.NURSE ---
Handed off report to JYOTI Chadwick,
--- NOTE | 2023-02-26 06:45 | PC.NURSE ---
TANK CALIBRATOR pump cleared, 6mg morphine cleared for shift
[2023-02-26 07:00] LABS: Basophils % 0.1 % (0.1-2.0); Eosinophils % 0.1 % (0.1-12.0); Lymphocytes # 0.6 K/mm3 (0.7-4.5); Lymphocytes % 5.4 % (10-50); Mean Corpuscular HGB Conc 33.2 g/dL (31.8-35.4); Mean Corpuscular Hemoglobin 28.3 pg (27.0-31.2); Mean Corpuscular Volume 85.2 fl (80-94); Mean Platelet Volume 8.1 fl (7.4-10.4); Monocytes # 0.6 K/mm3 (0.1-1.0); Monocytes % 5.3 % (1.7-9.3); Neutrophils # 9.3 K/mm3 (1.8-7.8); Neutrophils % 89.1 % (37.0-80.0); Platelet Count 206 K/mm3 (142-424); Red Blood Count 3.09 M/mm3 (4.60-6.20); Red Cell Distribution Width 18.7 % (11.5-17.5); White Blood Count 10.4 K/mm3 (4.8-10.8)
[2023-02-26 07:07] LABS: Hematocrit 26.3 % (42.0-52.0); Hemoglobin 8.7 g/dL (14.1-18.0)
[2023-02-26 07:08] LABS: MANUAL DIFFERENTIAL MANUAL DIFFERENTIAL (MANUAL DIFF)
[2023-02-26 07:14] LABS: Anion Gap 12.8 mEq/L (5-15); Blood Urea Nitrogen 16 mg/dl (9-20); Calcium 7.9 mg/dl (8.4-10.2); Carbon Dioxide 24 mmol/L (22.0-30.0); Chloride 103 mmol/L (98-107); Creatinine Clearance Estimated 64 mL/min (50-200); Estimated Glomerular Filt Rate 110 ml/min (>60); GFR (African American) 133 ML/MIN (>60); Glucose 109 mg/dl (74-100); Potassium 3.8 mmoL/L (3.5-5.1); Sodium 136 mmol/L (136-145)
[2023-02-26 07:26] LABS: Anisocytosis 1+; Lymphocytes % 3 % (10-50); Monocytes % 8 % (2-9); Neutrophils % 89 % (42-76); Platelet Estimate Normal; RBC Morphology NO; Total Cells Counted 100
[2023-02-26 07:27] LABS: Ovalocytes 1+
--- NOTE | 2023-02-26 08:54 | EXP.MED.CON ---
History of Present Illness *Admission Date: 02/25/23 *Reason for visit:: Abdominal pain *History of present illness: Mr. Zeb lam is a 77-year-old male with history of hypertension, hyperlipidemia, PAD, CAD status post CABG, COPD presenting with abdominal pain. States the pain began night before admission. Took some Tylenol with improvement in his pain and ability to sleep. However woke early in the morning with acute worsening. Progressed from a 4 out of 10 to a 7 out of 10. Did not radiate. Poor p.o. intake due to pain. No diarrhea but was having some nausea. Came to the ER for further evaluation because of the character and onset of the his pain. Denies any fever or chills. On evaluation in the ER, found to have inflammatory changes encompassing the cecum and proximal ascending colon. Concern for possible perforation, infection, underlying malignancy. Surgery was consulted and patient was taken urgently to the ER for evaluation. Partial colectomy of the cecum performed. Admitted to surgery after procedure. Medicine consulted for comanagement of patient. On my evaluation this morning, patient has pain but it is somewhat improving. States it gets to burning at times and the KETTLE ROOM HELPER pump does help. No nausea or vomiting. No flatus as of yet. Afebrile overnight. Sitting on bedside. [facility] Disclaimer: The information contained in this section may have been updated after the patient was seen, as this information can be updated by other users. Medical History Abdominal bruit Abnormal ankle brachial index (JUSTICE) Allergic rhinitis CAD (coronary artery disease) Cardiac murmur Carotid artery disease Chronic cough Claudication Claudication COPD (chronic obstructive pulmonary disease) COPD exacerbation COPD mixed type Dyspnea on exertion Hearing Loss Hemoptysis Hyperlipidemia Hypertension Impacted cerumen Laceration of right ear canal Lung nodule Non-healing wound PAD (peripheral artery disease) Peripheral arterial disease PVD (peripheral vascular disease) Small cell lung cancer Smoker Smoking greater than 30 pack years Surgical History (Updated 02/26/23 @ 19:51 by Lawrence Fitzgerald MD) H/O angioplasty H/O endarterectomy History of cardiac cath History of carpal tunnel release S/P femoral-popliteal bypass surgery Status post insertion of iliac artery stent Family History Other Asthma Social History (Updated 02/25/23 @ 18:34 by Yue Sierra RN) Smoking Status: Never smoker alcohol intake: current substance use type: denies use current occupational status: retired Travel in the last 8 weeks: None household members: spouse housing: house marital status: caffeine: Yes Review of Systems Review of Systems Review of systems (narrative): 14 point review of systems performed, pertinent positives and negatives as per HPI Exam Data for Last 24 hours Vital signs and Labs for Last 24 Hours: Temp Pulse Resp BP Pulse Ox O2 Del Method O2 Flow Rate 98.3 F 85 22 104/45 L 95 Nasal Cannula 2 02/26/23 08:00 02/26/23 08:00 02/26/23 08:00 02/26/23 08:00 02/26/23 08:00 02/26/23 08:00 02/26/23 06:40 Laboratory Results - last 24 hr 02/25/23 09:07: Urine Color Yellow, Urine Appearance Clear, Urine pH 6.5, Ur Specific [place] 1.020, Urine Protein 1+, Urine Glucose (UA) Negative, Urine Ketones Negative, Urine Blood Negative, Urine Nitrate Negative, Urine Bilirubin Negative, Urine Urobilinogen 0.2, Ur Leukocyte Esterase Negative, Urine RBC None, Urine WBC Occasional, Ur Squamous Epith Cells Occasional, Urine Bacteria None 02/25/23 10:21: WBC 16.2 H, RBC 4.01 L, Hgb 11.1 L, Hct 33.9 L, MCV 84.4, MCH 27.6, MCHC 32.7, RDW 18.4 H, Plt Count 269, MPV 7.7, Neut % (Auto) 93.4 H, Lymph % (Auto) 2.5 L, [place] % (Auto) 3.1, Eos % (Auto) 0.8, Baso % (Auto) 0.2, Neut # (Auto) 15.1 H, Lymph # (Auto) 0.4 L, [place] # (Auto) 0.5, Eos # (Auto) 0.1, Baso #
--- NOTE | 2023-02-26 10:13 | HMH.PHAINT1 ---
Pharmacy Intervention Comments: Med reconciliation completed using pharmacy fill history, md office list, patient interview, and patient-made home list. Pt brought an anoro to the hospital but states that he has switched from anoro to trelegy
--- NOTE | 2023-02-26 10:43 | HMH.PTEV ---
Physical Therapy Evaluation Rehab PT IP Evaluation Start: 02/25/23 16:49 Freq: ONCE Status: Active Protocol: Document 02/26/23 10:37 CHRISTEL (Rec: 02/26/23 10:43 PHOIVETTE [id number]) Subjective/History History History 77 yowm adm to [facility] with abdominal pain now S/P ex-lap with partial colectomy. He reports he lives with , 1 EUGENE the home, and he is generally independent with all mobility and ADLs without an AD. Subjective Subjective Pt reports expected post-op pain this am. Agrees to mobility assessment. New diagnosis of cancer in past 12 No months? Rehab PT IP Eval Objective Appearance Patient Behavior Appropriate Patient Orientation Person,Place,Time Difficulty following instructions none Speech Pattern Clear Ambulation Patient Able to Ambulate Yes Ambulation Observation IP General Gait Pattern Observation Shuffling Step Ambulation Distance (feet) 10 Ambulation Assistive Device None Ambulation Ability Contact Guard/Hand Hold Balance Ability to Arise Able, uses arms to help Sitting Balance Steady, safe Standing Balance Steady, wide stance Dynamic Sitting Balance Ability Good Transfers Bed Transfer Ability Contact Guard/Hand Hold Chair Transfer Ability Contact Guard/Hand Hold Sit to Stand Bed Transfer Ability Contact Guard/Hand Hold Sit to Stand Chair Transfer Ability Contact Guard/Hand Hold Rehab PT IP prob,goals,plan Problems Date of Evaluation: 02/26/23 PT IP Problems Bed Mobility,Transfers,Gait Rehab Potential Rehab Potential Good Plan PT Intervention Plan Bed Mobility,Transfers,Gait, Therapeutic Exercise PT Plan Frequency Daily Duration LOS Discharge Goals Bed Transfer Ability Supervision/Stand by Sit to Stand Chair Transfer Ability Supervision/Stand by Ambulation Assistive Device None Ambulation Distance (feet) 40 Discharge Plan PT Discharge Plan Pt is appropriate to return home once medically stable for d/c. Eval Complexity Eval Charge Codes 51372 - High Complexity PHYSICIAN CERTIFICATION: I certify the specified therapy services for Lawrence Alonso are required, authorized, and reviewed every 30 days.
--- NOTE | 2023-02-26 12:04 | EXP.SURG.PN ---
Subjective Narrative: Patient is postoperative day #1 after right hemicolectomy for ischemic colitis. Doing quite well. No nausea. Pain controlled. Exam Data for Last 24 hours Vital signs and Labs for Last 24 Hours: Temp Pulse Resp BP Pulse Ox O2 Del Method O2 Flow Rate 98.3 F 83 16 144/58 H 92 L Nasal Cannula 2 02/26/23 08:00 02/26/23 10:00 02/26/23 10:00 02/26/23 10:00 02/26/23 10:00 02/26/23 10:00 02/26/23 10:00 Laboratory Results - last 24 hr 02/25/23 11:00: SARS-CoV-2 (PCR) Not detected, Influenza A Untype (PCR) Not detected, Influenza Type B (PCR) Not detected 02/26/23 06:09: WBC 10.4 D, RBC 3.09 L, Hgb 8.7 L D, Hct 26.3 L, MCV 85.2, MCH 28.3, MCHC 33.2, RDW 18.7 H, Plt Count 206, MPV 8.1, Neut % (Auto) 89.1 H, Lymph % (Auto) 5.4 L, [place] % (Auto) 5.3, Eos % (Auto) 0.1, Baso % (Auto) 0.1, Neut # (Auto) 9.3 H, Lymph # (Auto) 0.6 L, [place] # (Auto) 0.6, Eos # (Auto) 0.0, Baso # (Auto) 0.0, Total Counted 100, Neutrophils % (Manual) 89 H, Lymphocytes % (Manual) 3 L, Monocytes % (Manual) 8, Platelet Estimate Normal, RBC Morphology No, Anisocytosis 1+, Ovalocytes 1+, Sodium 136, Potassium 3.8, Chloride 103, Carbon Dioxide 24, Anion Gap 12.8, BUN 16, Creatinine 0.70, Estimated Creat Clear 64, Estimated GFR 110, Est GFR ( Amer) 133, Glucose 109 H D, Calcium 7.9 L I & O for Last 24 hours: Intake & Output 02/24/23 02/25/23 02/26/23 02/27/23 11:59 11:59 11:59 11:59 Intake Total 3703 / 3703 Output Total 1250 / 1250 Balance 2453 / 2453 Weight 150 lb 159 lb 7 oz *Routine Abdominal Exam Abdominal: Present soft Comments: Dressing dry. Incision clean dry and intact. Progress Note: A&P Assessment and plan (1) Abdominal pain: Status: Acute (2) PAD (peripheral artery disease): Status: Acute Assessment and Plan Assessment and Plan for All Diagnoses:: DC Metcalf catheter.
--- NOTE | 2023-02-26 12:43 | PC.NURSE ---
removed vega catheter, pt trying to use urinal at this time
[2023-02-27] VITALS (9 sets, daily range): BP systolic 95–156; BP diastolic 60–71; PULSE 16–115; RESP 14–19; TEMP 36.6–36.7; O2SAT 91–98; BMI 25.6
--- NOTE | 2023-02-27 06:22 | ECG_ITS ---
APPROVED REPORT Exam: Resting ECG HR:124 bpm ECG Measurements Heart Rate 124 AXES QRSd 110 QRS 71 QT 323 T -9 QTc 397 Conclusion ATRIAL FIBRILLATION WITH RAPID VENTRICULAR RESPONSE NONSPECIFIC ST & T-WAVE ABNORMALITY ABNORMAL ECG UNCONFIRMED REPORT Electronically signed by : Curtis Montes MD 02/27/2023 20:10:19
--- NOTE | 2023-02-27 06:36 | PC.NURSE ---
At 0600 when sitting on the side of the bed to use the urinal pt noted to go into Atrial Fib RVR with HR sustaining 130-160. Pt c/o SOB and a fluttering feeling in the chest. EKG obtained and confirmed Atrial Fib, Romero SUPPORT ARCHITECT notified and stated to give metoprolol PO dose early.
--- NOTE | 2023-02-27 06:43 | PC.NURSE ---
WET PAN OPERATOR dose cleared, 10.5mg given this shift.
[2023-02-27 07:33] LABS: Basophils % 0.2 % (0.1-2.0); Eosinophils # 0.2 K/mm3 (0.0-0.4); Eosinophils % 1.7 % (0.1-12.0); Hematocrit 28.8 % (42.0-52.0); Hemoglobin 9.5 g/dL (14.1-18.0); Lymphocytes # 0.5 K/mm3 (0.7-4.5); Mean Corpuscular HGB Conc 33.1 g/dL (31.8-35.4); Mean Corpuscular Hemoglobin 28.3 pg (27.0-31.2); Mean Corpuscular Volume 85.4 fl (80-94); Mean Platelet Volume 8.5 fl (7.4-10.4); Monocytes # 0.5 K/mm3 (0.1-1.0); Monocytes % 5.2 % (1.7-9.3); Neutrophils # 7.6 K/mm3 (1.8-7.8); Neutrophils % 86.8 % (37.0-80.0); Platelet Count 205 K/mm3 (142-424); Red Blood Count 3.37 M/mm3 (4.60-6.20); Red Cell Distribution Width 18.5 % (11.5-17.5); White Blood Count 8.8 K/mm3 (4.8-10.8)
[2023-02-27 07:35] LABS: MANUAL DIFFERENTIAL MANUAL DIFFERENTIAL (MANUAL DIFF)
[2023-02-27 07:40] LABS: Alanine Aminotransferase 21 U/L (12-78); Albumin Level 3.4 g/dl (3.5-5.0); Albumin/Globulin Ratio 1.1 (1.1-1.8); Alkaline Phosphatase 78 U/L (38-126); Anion Gap 14.6 mEq/L (5-15); Aspartate Amino Transferase 35 U/L (17-59); Bilirubin,Total 0.4 mg/dl (0.2-1.3); Blood Urea Nitrogen 12 mg/dl (9-20); Calcium 8.1 mg/dl (8.4-10.2); Carbon Dioxide 23 mmol/L (22.0-30.0); Chloride 105 mmol/L (98-107); Creatinine Clearance Estimated 64 mL/min (50-200); Estimated Glomerular Filt Rate 131 ml/min (>60); GFR (African American) 159 ML/MIN (>60); Globulin 3.2 g/dL (1.3-3.2); Glucose 88 mg/dl (74-100); Magnesium 1.8 mg/dl (1.6-2.3); Potassium 3.6 mmoL/L (3.5-5.1); Sodium 139 mmol/L (136-145); Total Protein,Serum 6.6 g/dl (6.3-8.2)
[2023-02-27 07:55] LABS: Eosinophils % 3 % (0-3); Lymphocytes % 2 % (10-50); Monocytes % 4 % (2-9); Neutrophils % 91 % (42-76); Total Cells Counted 100
[2023-02-27 07:56] LABS: Anisocytosis 1+; Microcytosis 1+; Platelet Estimate Normal
[2023-02-27 07:57] LABS: Hypochromasia 1+; Ovalocytes 1+
--- NOTE | 2023-02-27 08:12 | EXP.SURG.PN ---
Subjective Narrative: Patient states he had a rough night . Describes significant bloating which he attributes to surgical gas . Not passing gas. On clear liquid diet. Since 0630 monitor has shown significant irregular tachycardia (cardiology consult pending). Exam Data for Last 24 hours Vital signs and Labs for Last 24 Hours: Temp Pulse Resp BP Pulse Ox O2 Del Method O2 Flow Rate 97.9 F 115 H 17 95/60 L 96 Nasal Cannula 2 02/27/23 07:44 02/27/23 07:44 02/27/23 07:44 02/27/23 07:44 02/27/23 07:44 02/27/23 07:44 02/27/23 07:44 Laboratory Results - last 24 hr 02/27/23 05:53: WBC 8.8, RBC 3.37 L, Hgb 9.5 L, Hct 28.8 L, MCV 85.4, MCH 28.3, MCHC 33.1, RDW 18.5 H, Plt Count 205, MPV 8.5, Neut % (Auto) 86.8 H, Lymph % (Auto) 6.0 L, [place] % (Auto) 5.2, Eos % (Auto) 1.7, Baso % (Auto) 0.2, Neut # (Auto) 7.6, Lymph # (Auto) 0.5 L, [place] # (Auto) 0.5, Eos # (Auto) 0.2, Baso # (Auto) 0.0, Total Counted 100, Neutrophils % (Manual) 91 H, Lymphocytes % (Manual) 2 L, Monocytes % (Manual) 4, Eosinophils % (Manual) 3, Platelet Estimate Normal, Hypochromasia 1+, Anisocytosis 1+, Microcytosis 1+, Ovalocytes 1+, Sodium 139, Potassium 3.6, Chloride 105, Carbon Dioxide 23, Anion Gap 14.6, BUN 12, Creatinine 0.60 L, Estimated Creat Clear 64, Estimated GFR 131, Est GFR ( Amer) 159, Glucose 88, Calcium 8.1 L, Magnesium 1.8, Total Bilirubin 0.4, AST 35, ALT 21 D, Alkaline Phosphatase 78, Total Protein 6.6, Albumin 3.4 L, Globulin 3.2, Albumin/Globulin Ratio 1.1 I & O for Last 24 hours: Intake & Output 11/11/23 11/12/23 11/13/23 11/14/23 11:59 11:59 11:59 11:59 Intake Total 3703 / 3703 1565 / 1565 Output Total 1250 / 1250 2250 / 2250 Balance 2453 / 2453 -685 / -685 Weight 150 lb 159 lb 7 oz 159 lb 7.013 oz *Routine Abdominal Exam Comments: Distended. Dressing intact. Progress Note: A&P Assessment and plan (1) Abdominal pain: Status: Acute (2) S/P right hemicolectomy: Status: Acute (3) Ischemic colitis: Status: Acute (4) Hx of coronary artery bypass graft: Status: Chronic (5) H/O: lung cancer: Status: Acute (6) CAD (coronary artery disease): Status: Acute (7) PAD (peripheral artery disease): Status: Acute (8) COPD (chronic obstructive pulmonary disease): Status: Chronic Assessment and Plan Assessment and Plan for All Diagnoses:: NPO for significant pos-operative ileus. May have few ice chips. Needs close monitoring to evaluate for possible anastomotic leak.
--- NOTE | 2023-02-27 09:26 | CA_ITS ---
APPROVED REPORT EXAM: Comprehensive 2D, Doppler, and color-flow Echocardiogram Dispatch Associate: Radha Rogel RVT Ht: 5 ft 6 in Wt: 159lbs BSA: 1.81 BP: 104/45 mmHg Indications: ABN EKG,A-FIB,CAD,CABG,COPD,HTN,HLD,,MURMUR TDS-PT S/P BOWEL SURGERY 2D Dimensions LVOT 2.38 cm (M/F) 1.5-2.5 LA Volume 73.40 mL LA Volume Index 40.33 mL/m2 (M/F) 16-34 M-Mode Dimensions RVDd 2.50 cm (0.9-2.6) LA Diam 3.94 cm (1.9-4.0) LVDd 4.50 cm (3.5-5.7) Ao Diam 3.64 cm (2.0-3.7) LVDs 3.10 cm (3.5-5.7) IVSd 1.83 cm (0.6-1.1) PWd 0.75 cm (0.6-1.1) EF (Teich) 59.00% FS 31.10% EDV (Teich) 92.40 mL TAPSE 2.04 (<1.7) ESV (Teich) 37.90 mL LV Diastology E Decel Time 227.00 (160-240 msec) E/A Ratio 0.7 MED E' 6.60 (< 7 cm/sec) E'/MED E' Ratio 16.09 (>14) LAT E' 7.40 (<10 cm/sec) E/LAT E' Ratio 14.35 (>14) Aortic Valve LVOT Max 100.00 (70-110 cm/s) LVOT VTI 20.01 cm AoV Peak Moises. 300.00 (50-130 cm/s) AO Peak GR. 35.90 mmHg AO Mean GR. 21.90 (<5 mmHg) AO VTI 66.38 (18-25 cm) RELL (VTI) 1.34 (2.5-4.5 cm2) Mitral Valve MV E Max Moises. 106.00 (40-130 cm/s) MV A Velocity 143.00 (40-130 cm/s) E/A Ratio 0.74 MV Decel. Time 227.00 (160-240 ms) MV PHT 66.00 ms Pulmonary Valve PV Peak Velocity 82.00 (50-150 cm/s) Left Ventricle The left ventricle is normal size. Left ventricular systolic function is mild to moderately decreased. There is marked increase in LV wall thickness (IVSd 1.6 cm). There is mild to moderate global hypokinesis present. There is severe hypokinesis of the mid to distal septal LV wall. Grade 2 diastolic dysfunction is present. LVEF is 40%. Right Ventricle The right ventricle is normal size. The right ventricular systolic function is normal. Atria Left atrium is moderately dilated. The right atrium size is normal. Aortic Valve The aortic valve leaflets are moderately thickened. There is moderate aortic stenosis. AV area is 1.2 cm2. Mean AV gradient is 24 mmHg. Max AV gradient is 40 mmHg. Peak velocity 3.2 m/s. Trace aortic regurgitation. Mitral Valve The MV leaflets are mildly thickened. No evidence of mitral valve stenosis. Mild mitral regurgitation. Tricuspid Valve The tricuspid valve leaflets are thin and pliable. Trace tricuspid regurgitation. There is insufficient TR jet to estimate RVSP. Pulmonic Valve The pulmonary valve is normal in structure. Trace pulmonic regurgitation. Great Vessels The aortic root is normal in size. The ascending aorta is normal in size. IVC is normal in size and collapses >50% with inspiration. Pericardium There is no pericardial effusion. Other Information Study Quality: Fair Conclusion Mild to moderate reduction in LV systolic function (LVEF 40%). Markedly increased LV wall thickness - IVSd 1.7 cm. Moderate moderate aortic stenosis. AV area is 1.2 cm2. Mean AV gradient is 24 mmHg. Max AV gradient is 40 mmHg. Peak velocity 3.2 m/s. Mild MR. Electronically signed by : Mainsha Gonzalez MD 02/27/2023 19:02:36
--- NOTE | 2023-02-27 13:02 | EXP.CARD.CON ---
History of Present Illness History of Present Illness Consult date: 02/27/23 Requesting physician: Lawrence Fitzgerald Consult reason: atrial fibrillation Chief complaint: abdominal pain History of present illness: 77-year-old male with a past medical history of hypertension, hyperlipidemia, PAD, CAD status post CABG and COPD is s/p partial colectomy of cecum for ischemic colitis. Patient presented to emergency department on 02/25/2023 with complaints of generalized abdominal pain 7 out of 10 x 24 hours. Patient reports that at that time nothing really made the pain better or worse including eating. Patient states had decreased appetite and denies having a history of fever, chills, nausea or vomiting. A CT abdomen and pelvis with contrast was obtained which showed moderate inflammatory changes encompassing the cecum and proximal ascending colon suspicious for infectious/inflammatory colitis/diverticulitis and severe aortoiliac atherosclerosis. Patient was taken to OR from the emergency department and then was admitted postop. During hospital stay patient developed A-fib with RVR with a rate in the 120s. Of note, patient had not been receiving his home dose of metoprolol during hospital stay. Patient denies a history of A-fib. Patient denies chest pain or shortness of breath. Patient's home dose of metoprolol was restarted with rate improvement. Upon examination this morning patient was A-fib with a rate in the low 100s. Patient was given 5 of Lopressor and an additional 50 mg of metoprolol p.o. and is currently normal sinus rhythm with a rate in the 70s. Echocardiogram is pending. [facility] Disclaimer: The information contained in this section may have been updated after the patient was seen, as this information can be updated by other users. Medical History Abdominal bruit Abnormal ankle brachial index (JUSTICE) Allergic rhinitis CAD (coronary artery disease) Cardiac murmur Carotid artery disease Chronic cough Claudication Claudication COPD (chronic obstructive pulmonary disease) COPD exacerbation COPD mixed type Dyspnea on exertion Hearing Loss Hemoptysis Hyperlipidemia Hypertension Impacted cerumen Laceration of right ear canal Lung nodule Non-healing wound PAD (peripheral artery disease) Peripheral arterial disease PVD (peripheral vascular disease) Small cell lung cancer Smoker Smoking greater than 30 pack years Surgical History (Updated 02/26/23 @ 19:51 by Lawrence Fitzgerald MD) H/O angioplasty H/O endarterectomy History of cardiac cath History of carpal tunnel release S/P femoral-popliteal bypass surgery Status post insertion of iliac artery stent Family History Other Asthma Social History (Updated 02/25/23 @ 18:34 by Yue Sierra RN) Smoking Status: Never smoker alcohol intake: current substance use type: denies use current occupational status: retired Travel in the last 8 weeks: None household members: spouse housing: house marital status: caffeine: Yes Review of Systems Review of Systems Review of systems:: pertinent systems reviewed and negative unless documented below *Gastrointestinal Gastrointestinal: Reports abdominal pain Exam Data for Last 24 hours Vital signs and Labs for Last 24 Hours: Temp Pulse Resp BP Pulse Ox O2 Del Method O2 Flow Rate 98.0 F 82 19 100/65 L 98 Nasal Cannula 2 02/27/23 11:32 02/27/23 11:32 02/27/23 11:32 02/27/23 11:32 02/27/23 11:32 02/27/23 12:32 02/27/23 12:32 Laboratory Results - last 24 hr 02/27/23 05:53: WBC 8.8, RBC 3.37 L, Hgb 9.5 L, Hct 28.8 L, MCV 85.4, MCH 28.3, MCHC 33.1, RDW 18.5 H, Plt Count 205, MPV 8.5, Neut % (Auto) 86.8 H, Lymph % (Auto) 6.0 L, [place] % (Auto) 5.2, Eos % (Auto) 1.7, Baso % (Auto) 0.2, Neut # (Auto) 7.6, Lymph # (Auto) 0.5 L, [place] # (Auto) 0.5, Eos # (Auto) 0.2, Baso # (Auto) 0.0, Total Counted 100, Neutrophils % (Manual) 91 H, Lymphocytes % (
--- NOTE | 2023-02-27 15:16 | EXP.PN ---
Subjective *Date: 02/27/23 *Time: 15:16 Interval history: Patient seen and evaluated at the bedside. he sill has abdominal pain, discussed with at bedside, Patient denied chest pain nausea vomiting diarrhea constipation dysuria fevers chills shortness of breath. Exam Data for Last 24 hours Vital signs and Labs for Last 24 Hours: Temp Pulse Resp BP Pulse Ox O2 Del Method O2 Flow Rate 98.0 F 82 19 100/65 L 98 Nasal Cannula 2 02/27/23 11:32 02/27/23 11:32 02/27/23 11:32 02/27/23 11:32 02/27/23 11:32 02/27/23 12:32 02/27/23 12:32 Laboratory Results - last 24 hr 02/27/23 05:53: WBC 8.8, RBC 3.37 L, Hgb 9.5 L, Hct 28.8 L, MCV 85.4, MCH 28.3, MCHC 33.1, RDW 18.5 H, Plt Count 205, MPV 8.5, Neut % (Auto) 86.8 H, Lymph % (Auto) 6.0 L, [place] % (Auto) 5.2, Eos % (Auto) 1.7, Baso % (Auto) 0.2, Neut # (Auto) 7.6, Lymph # (Auto) 0.5 L, [place] # (Auto) 0.5, Eos # (Auto) 0.2, Baso # (Auto) 0.0, Total Counted 100, Neutrophils % (Manual) 91 H, Lymphocytes % (Manual) 2 L, Monocytes % (Manual) 4, Eosinophils % (Manual) 3, Platelet Estimate Normal, Hypochromasia 1+, Anisocytosis 1+, Microcytosis 1+, Ovalocytes 1+, Sodium 139, Potassium 3.6, Chloride 105, Carbon Dioxide 23, Anion Gap 14.6, BUN 12, Creatinine 0.60 L, Estimated Creat Clear 64, Estimated GFR 131, Est GFR ( Amer) 159, Glucose 88, Calcium 8.1 L, Magnesium 1.8, Total Bilirubin 0.4, AST 35, ALT 21 D, Alkaline Phosphatase 78, Total Protein 6.6, Albumin 3.4 L, Globulin 3.2, Albumin/Globulin Ratio 1.1 Temp Pulse Resp BP Pulse Ox O2 Del Method O2 Flow Rate 98.3 F 85 22 104/45 L 95 Nasal Cannula 2 02/26/23 08:00 02/26/23 08:00 02/26/23 08:00 02/26/23 08:00 02/26/23 08:00 02/26/23 08:00 02/26/23 06:40 Laboratory Results - last 24 hr 02/25/23 09:07: Urine Color Yellow, Urine Appearance Clear, Urine pH 6.5, Ur Specific [place] 1.020, Urine Protein 1+, Urine Glucose (UA) Negative, Urine Ketones Negative, Urine Blood Negative, Urine Nitrate Negative, Urine Bilirubin Negative, Urine Urobilinogen 0.2, Ur Leukocyte Esterase Negative, Urine RBC None, Urine WBC Occasional, Ur Squamous Epith Cells Occasional, Urine Bacteria None 02/25/23 10:21: WBC 16.2 H, RBC 4.01 L, Hgb 11.1 L, Hct 33.9 L, MCV 84.4, MCH 27.6, MCHC 32.7, RDW 18.4 H, Plt Count 269, MPV 7.7, Neut % (Auto) 93.4 H, Lymph % (Auto) 2.5 L, [place] % (Auto) 3.1, Eos % (Auto) 0.8, Baso % (Auto) 0.2, Neut # (Auto) 15.1 H, Lymph # (Auto) 0.4 L, [place] # (Auto) 0.5, Eos # (Auto) 0.1, Baso # (Auto) 0.0, Total Counted 100, Neutrophils % (Manual) 91 H, Lymphocytes % (Manual) 4 L, Monocytes % (Manual) 5, Platelet Estimate Normal, Hypochromasia 1+, Sodium 137, Potassium 4.2, Chloride 99, Carbon Dioxide 26, Anion Gap 16.2 H, BUN 18, Creatinine 0.70, Estimated Creat Clear 60, Estimated GFR 110, Est GFR ( Amer) 133, Glucose 146 H, Calcium 9.1, Total Bilirubin 0.6, AST 36, ALT 34, Alkaline Phosphatase 107, Total Protein 8.0, Albumin 4.3, Globulin 3.7 H, Albumin/Globulin Ratio 1.2, Lipase 37 02/25/23 11:00: SARS-CoV-2 (PCR) Not detected, Influenza A Untype (PCR) Not detected, Influenza Type B (PCR) Not detected 02/26/23 06:09: WBC 10.4 D, RBC 3.09 L, Hgb 8.7 L D, Hct 26.3 L, MCV 85.2, MCH 28.3, MCHC 33.2, RDW 18.7 H, Plt Count 206, MPV 8.1, Neut % (Auto) 89.1 H, Lymph % (Auto) 5.4 L, [place] % (Auto) 5.3, Eos % (Auto) 0.1, Baso % (Auto) 0.1, Neut # (Auto) 9.3 H, Lymph # (Auto) 0.6 L, [place] # (Auto) 0.6, Eos # (Auto) 0.0, Baso # (Auto) 0.0, Total Counted 100, Neutrophils % (Manual) 89 H, Lymphocytes % (Manual) 3 L, Monocytes % (Manual) 8, Platelet Estimate Normal, RBC Morphology No, Anisocytosis 1+, Ovalocytes 1+, Sodium 136, Potassium 3.8, Chloride 103, Carbon Dioxide 24, Anion Gap 12.8, BUN 16, Creatinine 0.70, Estimated Creat Clear 64, Estimated GFR 110, Est GFR ( Amer) 133, Glucose 109 H D, Calcium 7.9 L I & O for Last 24 hours: Intake & Output 02/24/23 02/25/23 02/26/23 02/27/23 23:59 23:59 23:59 23:59 Intake Total 1560
--- NOTE | 2023-02-27 17:07 | PC.NURSE ---
A&OX4. HAS BEEN ON 2LNC MAJORITY OF SHIFT, WEANED TO RA AT THIS TIME, TOLERATING WELL. PT HAS BEEN UP TO CHAIR AND AMBULATING IN ROOM THIS SHIFT. HAS BURPED SOME BUT STILL HAS HAD NO GAS AND CONTINUES TO FEEL BLOATED, BUT STATES IT IS SLIGHTLY BETTER THAN THIS MORNING. DRESSING IN PLACE TO ABD, CDI. DRESSING ALSO IN PLACE TO R FOOT, CDI. PT STATES HIS HAS BEEN ASSISTING WITH DRESSING CHANGES. MEDIHONEY AT BEDSIDE. RECEIVING IV ABX PER JUN. PT HAS BEEN ICE CHIPS ONLY THIS SHIFT FOR BOWEL REST. NEW IV PLACED THIS SHIFT ALSO, PT TOLERATED WELL. PT CONVERTED TO NSR ON TELE, RUNNING MID 70S AFTER ADMINISTRATION OF METOPROLOL PER CARDIOLOGY. NO OTHER NEEDS OR C/O NOTED THUS FAR, RESTING COMFORTABLY IN BED, VSS.
--- NOTE | 2023-02-27 18:07 | PC.NURSE ---
PT AMBULATED WITH WALKER AND STANDBY ASSISTANCE TO THE END OF HALLWAY AND BACK, TOLERATED WELL.
--- NOTE | 2023-02-27 19:04 | PC.NURSE ---
LEGAL RECORDS MANAGER CLEARED, 5MG ADMINISTERED THIS SHIFT.
[2023-02-28] VITALS (9 sets, daily range): BP systolic 108–181; BP diastolic 45–81; PULSE 60–87; RESP 16–18; TEMP 36.3–36.9; O2SAT 91–100; BMI 26.0
--- NOTE | 2023-02-28 03:10 | PC.NURSE ---
Pt is alert and oriented x4, Pt began the shift on RA and has since required 2L of O2 due to O2 sats. Pt midline incision dressing is clean and intact. Pt right leg remains swollen and wrapped in gauze. Pt has C/O of restlessness, toradol given and Pt has been resting well. Pt denies pain and remains on a WINDOW CLEANER with morphine for pain, Pt denies needs at this time.
--- NOTE | 2023-02-28 06:03 | PC.NURSE ---
REFUSE AND RECYCLING WORKER cleared. 3.5 mg administered this shift.
--- NOTE | 2023-02-28 07:18 | EXP.SURG.PN ---
Subjective Patient reports: feels better, flatus and no bowel movement Narrative: The patient states that he definitely feel(s) better than yesterday . He has passed a small amount of flatus but does continue to burp up air . Exam Data for Last 24 hours Vital signs and Labs for Last 24 Hours: Temp Pulse Resp BP Pulse Ox O2 Del Method O2 Flow Rate 97.6 F 62 16 142/80 H 99 Nasal Cannula 2 02/28/23 04:00 02/28/23 04:00 02/28/23 04:00 02/28/23 04:00 02/28/23 04:00 02/28/23 06:37 02/28/23 06:37 Laboratory Results - last 24 hr 02/27/23 05:53: WBC 8.8, RBC 3.37 L, Hgb 9.5 L, Hct 28.8 L, MCV 85.4, MCH 28.3, MCHC 33.1, RDW 18.5 H, Plt Count 205, MPV 8.5, Neut % (Auto) 86.8 H, Lymph % (Auto) 6.0 L, [place] % (Auto) 5.2, Eos % (Auto) 1.7, Baso % (Auto) 0.2, Neut # (Auto) 7.6, Lymph # (Auto) 0.5 L, [place] # (Auto) 0.5, Eos # (Auto) 0.2, Baso # (Auto) 0.0, Total Counted 100, Neutrophils % (Manual) 91 H, Lymphocytes % (Manual) 2 L, Monocytes % (Manual) 4, Eosinophils % (Manual) 3, Platelet Estimate Normal, Hypochromasia 1+, Anisocytosis 1+, Microcytosis 1+, Ovalocytes 1+, Sodium 139, Potassium 3.6, Chloride 105, Carbon Dioxide 23, Anion Gap 14.6, BUN 12, Creatinine 0.60 L, Estimated Creat Clear 64, Estimated GFR 131, Est GFR ( Amer) 159, Glucose 88, Calcium 8.1 L, Magnesium 1.8, Total Bilirubin 0.4, AST 35, ALT 21 D, Alkaline Phosphatase 78, Total Protein 6.6, Albumin 3.4 L, Globulin 3.2, Albumin/Globulin Ratio 1.1 I & O for Last 24 hours: Intake & Output 02/25/23 02/26/23 02/27/2323 11:59 11:59 11:59 11:59 Intake Total 3703 / 3703 1805 / 1805 723 / 723 Output Total 1250 / 1250 2250 / 2250 400 / 400 Balance 2453 / 2453 -445 / -445 323 / 323 Weight 150 lb 159 lb 7 oz 159 lb 7.013 oz 162 lb 3.2 oz Constitutional Constitutional: no acute distress *Routine Respiratory Exam Respiratory: Absent respiratory distress *Routine Cardiovascular Exam Cardiovascular: Absent tachycardia *Routine Abdominal Exam Comments: Incision healing without evidence of infection Progress Note: A&P Assessment and plan (1) Postoperative ileus: Status: Acute Assessment and plan: Beginning to show evidence of slow resolution Continue sips/chips for now Limited clear liquids without carbonation likely later today (2) S/P right hemicolectomy: Status: Acute Assessment and plan: Increase ambulation Increase incentive spirometer use Increase use of SCDs (3) Ischemic colitis: Status: Acute
[2023-02-28 07:38] LABS: Alanine Aminotransferase 21 U/L (12-78); Albumin Level 3.5 g/dl (3.5-5.0); Albumin/Globulin Ratio 1.1 (1.1-1.8); Alkaline Phosphatase 73 U/L (38-126); Anion Gap 12.6 mEq/L (5-15); Aspartate Amino Transferase 34 U/L (17-59); Bilirubin,Total 0.5 mg/dl (0.2-1.3); Blood Urea Nitrogen 16 mg/dl (9-20); Calcium 8.4 mg/dl (8.4-10.2); Carbon Dioxide 25 mmol/L (22.0-30.0); Chloride 104 mmol/L (98-107); Creatinine Clearance Estimated 65 mL/min (50-200); Estimated Glomerular Filt Rate 110 ml/min (>60); GFR (African American) 133 ML/MIN (>60); Globulin 3.3 g/dL (1.3-3.2); Glucose 73 mg/dl (74-100); Potassium 3.6 mmoL/L (3.5-5.1); Sodium 138 mmol/L (136-145); Total Protein,Serum 6.8 g/dl (6.3-8.2)
--- NOTE | 2023-02-28 09:48 | EXP.CARD.PN ---
Subjective Subjective Date: 02/28/23 Time: 08:00 Principal diagnosis: Colitis, postop Interval history: Patient resting this morning. Denies any chest pain, shortness of breath, palpitations. Morning labs reviewed. Patient has remained in normal sinus rhythm since yesterday. Exam Data for Last 24 hours Vital signs and Labs for Last 24 Hours: Temp Pulse Resp BP Pulse Ox O2 Del Method O2 Flow Rate 98.1 F 76 17 181/69 H 95 Room Air 2 02/28/23 08:00 02/28/23 08:00 02/28/23 08:00 02/28/23 08:00 02/28/23 08:00 02/28/23 08:00 02/28/23 06:37 Laboratory Results - last 24 hr 02/28/23 06:10: Sodium 138, Potassium 3.6, Chloride 104, Carbon Dioxide 25, Anion Gap 12.6, BUN 16 D, Creatinine 0.70, Estimated Creat Clear 65, Estimated GFR 110, Est GFR ( Amer) 133, Glucose 73 L, Calcium 8.4, Total Bilirubin 0.5, AST 34, ALT 21, Alkaline Phosphatase 73, Total Protein 6.8, Albumin 3.5, Globulin 3.3 H, Albumin/Globulin Ratio 1.1 I & O for Last 24 hours: Intake & Output 02/25/23 02/26/23 02/27/23 02/28/23 23:59 23:59 23:59 23:59 Intake Total 1560 / 1560 2983 / 3708 965 / 1025 723 / 723 Output Total 0 / 850 2950 / 2950 550 / 950 650 / 650 Balance 1560 / 710 33 / 758 415 / 75 73 / 73 Weight 155 lb 4 oz 159 lb 7 oz 159 lb 7.013 oz 162 lb 3.2 oz Constitutional Constitutional: no acute distress *Routine Respiratory Exam Respiratory: Present CTA bilaterally and symmetric chest movement *Routine Cardiovascular Exam Cardiovascular: Present RRR, Normal S1 and Normal S2 *Routine Abdominal Exam Abdominal: Present soft and normoactive bowel sounds; Absent tenderness *Routine Extremities Exam Extremities: Present full ROM and normal capillary refill; Absent edema *Routine Skin Exam Skin: Present intact, dry and warm Detailed Neck Exam: Thyroids Thyroid: Absent bruit Progress Note: A&P Assessment and plan (1) Postoperative ileus: Status: Acute (2) S/P right hemicolectomy: Status: Acute (3) Ischemic colitis: Status: Acute Assessment and Plan Assessment and Plan for All Diagnoses:: Paroxysmal atrial fibrillation Chadsvasc score of 4 -Currently normal sinus rhythm with a rate in the 70s. Continue metoprolol 50 mg daily. -Echocardiogram 02/27/2023: Mild to moderate reduction in LV systolic function 40%, markedly increased LV wall thickness, moderate AAS, mild MR. -Continue Lovenox for now 02/28/2023: Patient has remained in normal sinus rhythm since yesterday afternoon. We will transition patient to Xarelto 20 mg p.o. daily. Recommend discharging patient home with a 2-week event monitor to further evaluate for A-fib. Continue metoprolol succinate ER 50 mg p.o. daily. New Dx of HFrEF-no signs of volume overload at this time Grade 2? -Mild to moderate reduction in systolic function noted on most recent echo, EF 40%. EF was normal for 2022 per [facility] read. -Start Entresto 24/26 mg p.o. twice daily, Jardiance 10 mg p.o. daily, Aldactone 25 mg p.o. daily and continue beta-natalio as above. -Patient will need a stress test outpatient to further evaluate for ischemic change Coronary artery disease History of coronary artery bypass graft -[facility]-medical management 06/2022 -Continue Plavix 75 mg daily, atorvastatin 80 mg daily, metoprolol succinate ER 50 mg daily Ischemic colitis Status post right hemicolectomy Severe stenosis of SMA -CT abdomen pelvis with contrast 02/25/2023: The aorta demonstrates severe atherosclerotic calcification and severe stenosis at the superior mesenteric artery origin. -Patient will need further evaluation of SMA stenosis on an outpatient basis. History of peripheral artery disease -09/2022 angiogram with runoff- drug-coated balloon angioplasty to proximal right SFA. Chronically occluded distal right SFA and right popliteal artery with collaterals which are provide three-vessel runoff below the right knee. Chronically occluded left SFA with poor angiographic runoff distally lik
--- NOTE | 2023-02-28 10:27 | P.PNANES_ITS ---
[facility] Anesthesia Record Part II Anesthesia Record Part II Discharge Time: 16:45 Destination: Second Floor PACU nurse assessment reviewed?: Yes Patient Condition:: Good Anesthesia Complications:: None Swallowing reflex intact?: Yes Airway Patency: Patent Cyanosis?: No Blood Pressure: 134/64 SaO2: 99 Respiratory Rate: 17 Pulse Rate: 83 Temperature: 97.7 F Mental Status: Alert & Oriented Pain level:: 0 Nausea and/or vomitting:: None Intake, IV Amount: 0 Hydration: Adequate
--- NOTE | 2023-02-28 17:24 | EXP.PN ---
Subjective *Date: 02/28/23 *Time: 17:24 Interval history: Patient seen and evaluated at the bedside. he sill has abdominal pain, discussed with at bedside, Patient denied chest pain nausea vomiting diarrhea constipation dysuria fevers chills shortness of breath. Exam Data for Last 24 hours Vital signs and Labs for Last 24 Hours: Temp Pulse Resp BP Pulse Ox O2 Del Method O2 Flow Rate 98.1 F 78 16 156/81 H 91 L Room Air 3 02/28/23 15:53 02/28/23 15:53 02/28/23 15:53 02/28/23 15:53 02/28/23 15:53 02/28/23 15:53 02/28/23 11:00 Laboratory Results - last 24 hr 02/28/23 06:10: Sodium 138, Potassium 3.6, Chloride 104, Carbon Dioxide 25, Anion Gap 12.6, BUN 16 D, Creatinine 0.70, Estimated Creat Clear 65, Estimated GFR 110, Est GFR ( Amer) 133, Glucose 73 L, Calcium 8.4, Total Bilirubin 0.5, AST 34, ALT 21, Alkaline Phosphatase 73, Total Protein 6.8, Albumin 3.5, Globulin 3.3 H, Albumin/Globulin Ratio 1.1 Temp Pulse Resp BP Pulse Ox O2 Del Method O2 Flow Rate 98.3 F 85 22 104/45 L 95 Nasal Cannula 2 02/26/23 08:00 02/26/23 08:00 02/26/23 08:00 02/26/23 08:00 02/26/23 08:00 02/26/23 08:00 02/26/23 06:40 Laboratory Results - last 24 hr 02/25/23 09:07: Urine Color Yellow, Urine Appearance Clear, Urine pH 6.5, Ur Specific [place] 1.020, Urine Protein 1+, Urine Glucose (UA) Negative, Urine Ketones Negative, Urine Blood Negative, Urine Nitrate Negative, Urine Bilirubin Negative, Urine Urobilinogen 0.2, Ur Leukocyte Esterase Negative, Urine RBC None, Urine WBC Occasional, Ur Squamous Epith Cells Occasional, Urine Bacteria None 02/25/23 10:21: WBC 16.2 H, RBC 4.01 L, Hgb 11.1 L, Hct 33.9 L, MCV 84.4, MCH 27.6, MCHC 32.7, RDW 18.4 H, Plt Count 269, MPV 7.7, Neut % (Auto) 93.4 H, Lymph % (Auto) 2.5 L, [place] % (Auto) 3.1, Eos % (Auto) 0.8, Baso % (Auto) 0.2, Neut # (Auto) 15.1 H, Lymph # (Auto) 0.4 L, [place] # (Auto) 0.5, Eos # (Auto) 0.1, Baso # (Auto) 0.0, Total Counted 100, Neutrophils % (Manual) 91 H, Lymphocytes % (Manual) 4 L, Monocytes % (Manual) 5, Platelet Estimate Normal, Hypochromasia 1+, Sodium 137, Potassium 4.2, Chloride 99, Carbon Dioxide 26, Anion Gap 16.2 H, BUN 18, Creatinine 0.70, Estimated Creat Clear 60, Estimated GFR 110, Est GFR ( Amer) 133, Glucose 146 H, Calcium 9.1, Total Bilirubin 0.6, AST 36, ALT 34, Alkaline Phosphatase 107, Total Protein 8.0, Albumin 4.3, Globulin 3.7 H, Albumin/Globulin Ratio 1.2, Lipase 37 02/25/23 11:00: SARS-CoV-2 (PCR) Not detected, Influenza A Untype (PCR) Not detected, Influenza Type B (PCR) Not detected 02/26/23 06:09: WBC 10.4 D, RBC 3.09 L, Hgb 8.7 L D, Hct 26.3 L, MCV 85.2, MCH 28.3, MCHC 33.2, RDW 18.7 H, Plt Count 206, MPV 8.1, Neut % (Auto) 89.1 H, Lymph % (Auto) 5.4 L, [place] % (Auto) 5.3, Eos % (Auto) 0.1, Baso % (Auto) 0.1, Neut # (Auto) 9.3 H, Lymph # (Auto) 0.6 L, [place] # (Auto) 0.6, Eos # (Auto) 0.0, Baso # (Auto) 0.0, Total Counted 100, Neutrophils % (Manual) 89 H, Lymphocytes % (Manual) 3 L, Monocytes % (Manual) 8, Platelet Estimate Normal, RBC Morphology No, Anisocytosis 1+, Ovalocytes 1+, Sodium 136, Potassium 3.8, Chloride 103, Carbon Dioxide 24, Anion Gap 12.8, BUN 16, Creatinine 0.70, Estimated Creat Clear 64, Estimated GFR 110, Est GFR ( Amer) 133, Glucose 109 H D, Calcium 7.9 L I & O for Last 24 hours: Intake & Output 02/25/23 02/26/23 02/27/23 02/28/23 23:59 23:59 23:59 23:59 Intake Total 1560 / 1560 2983 / 3708 965 / 1025 723 / 723 Output Total 0 / 850 2950 / 2950 550 / 950 650 / 650 Balance 1560 / 710 33 / 758 415 / 75 73 / 73 Weight 70.42 kg 72.32 kg 72.32 kg 73.573 kg Intake & Output 02/23/23 02/24/23 02/25/23 02/26/23 23:59 23:59 23:59 23:59 Intake Total 1560 / 1560 2143 / 2143 Output Total 0 / 850 1250 / 1250 Balance 1560 / 710 893 / 893 Weight 70.42 kg 72.32 kg Constitutional Constitutional: no acute distress and average body habitus *Routine HEENT Exam Head: Present normocephalic and atraumatic
[2023-03-01 04:00] VITALS: BP 141/66; PULSE 71; RESP 16; TEMP 36.4; O2SAT 95; BMI 25.7
--- NOTE | 2023-03-01 05:26 | PC.NURSE ---
Patient has had a good night complained of pain early in the shift but has not complained since. Was asleep at the beginning of the shift but did get up and walk the halls in the middle of the shift. No complaints of nausea. No other issues noted
[2023-03-01 06:32] LABS: Alanine Aminotransferase 21 U/L (12-78); Albumin Level 3.4 g/dl (3.5-5.0); Albumin/Globulin Ratio 1.1 (1.1-1.8); Alkaline Phosphatase 71 U/L (38-126); Anion Gap 15.3 mEq/L (5-15); Aspartate Amino Transferase 36 U/L (17-59); Bilirubin,Total 0.5 mg/dl (0.2-1.3); Blood Urea Nitrogen 16 mg/dl (9-20); Calcium 8.4 mg/dl (8.4-10.2); Carbon Dioxide 22 mmol/L (22.0-30.0); Chloride 104 mmol/L (98-107); Creatinine Clearance Estimated 65 mL/min (50-200); Estimated Glomerular Filt Rate 94 ml/min (>60); GFR (African American) 114 ML/MIN (>60); Globulin 3.2 g/dL (1.3-3.2); Glucose 81 mg/dl (74-100); Potassium 3.3 mmoL/L (3.5-5.1); Sodium 138 mmol/L (136-145); Total Protein,Serum 6.6 g/dl (6.3-8.2)
[2023-03-01 08:00] VITALS: BP 148/63; PULSE 68; RESP 18; TEMP 36.6; O2SAT 92
--- NOTE | 2023-03-01 08:20 | EXP.SURG.PN ---
Subjective Narrative: Patient states that he had a rough night . He describes some abdominal pain mostly in the lower abdomen. He is passing some gas. He is taking some clear liquids. Exam Data for Last 24 hours Vital signs and Labs for Last 24 Hours: Temp Pulse Resp BP Pulse Ox O2 Del Method O2 Flow Rate 98 F 68 18 148/63 H 92 L Room Air 3 03/01/23 08:00 03/01/23 08:00 03/01/23 08:00 03/01/23 08:00 03/01/23 08:00 03/01/23 08:00 02/28/23 11:00 Laboratory Results - last 24 hr 03/01/23 06:15: Sodium 138, Potassium 3.3 L, Chloride 104, Carbon Dioxide 22, Anion Gap 15.3 H, BUN 16, Creatinine 0.80, Estimated Creat Clear 65, Estimated GFR 94, Est GFR ( Amer) 114, Glucose 81, Calcium 8.4, Total Bilirubin 0.5, AST 36, ALT 21, Alkaline Phosphatase 71, Total Protein 6.6, Albumin 3.4 L, Globulin 3.2, Albumin/Globulin Ratio 1.1 I & O for Last 24 hours: Intake & Output 02/26/23 02/27/23 02/28/23 03/01/23 11:59 11:59 11:59 11:59 Intake Total 3703 / 3703 1805 / 1805 723 / 723 Output Total 1250 / 1250 2250 / 2250 650 / 650 300 / 300 Balance 2453 / 2453 -445 / -445 73 / 73 -300 / -300 Weight 159 lb 7 oz 159 lb 7.013 oz 162 lb 3.2 oz 160 lb *Routine Abdominal Exam Abdominal: Present soft Comments: Appears nondistended. Abdomen is soft with minor incisional tenderness. Incision clean dry and intact. Progress Note: A&P Assessment and plan (1) Abdominal pain: Status: Acute (2) S/P right hemicolectomy: Status: Acute (3) Ischemic colitis: Status: Acute (4) Hx of coronary artery bypass graft: Status: Chronic (5) H/O: lung cancer: Status: Acute (6) CAD (coronary artery disease): Status: Acute (7) PAD (peripheral artery disease): Status: Acute (8) COPD (chronic obstructive pulmonary disease): Status: Chronic Assessment and Plan Assessment and Plan for All Diagnoses:: Likely slowly resolving ileus. I would not perform follow-up CT scan as of yet. I will check an acute abdominal series however to assess his bowel gas pattern.
--- NOTE | 2023-03-01 08:23 | XR_ITS ---
FINAL REPORT CLINICAL HISTORY: ABDOMINAL PAIN COMPARISON: None FINDINGS: A PA view of the chest was obtained. There is evidence of a prior midline sternotomy. The cardiac and mediastinal silhouettes are within normal limits. The lungs are clear. There is no free air beneath the diaphragm. Upright and supine views of the abdomen reveal surgical apurva over the mid abdomen and pelvis, as well as the presence of bilateral iliac stents. There is moderate distention of multiple loops of small bowel measuring up to 3.4 cm in diameter. There are no pathologic calcifications. No acute osseous abnormalities identified. IMPRESSION: Moderate distention of multiple loops of small bowel as described, favor postoperative ileus. Reviewed, Interpreted and Dictated by Jakub Jansen MD Transcribed by Loreto Gonzalez Authenticated and [facility]
--- NOTE | 2023-03-01 10:07 | EXP.PHA.PN ---
Subjective *Date: 03/01/23 *Time: 10:07 Medical Exam Vital signs and Labs for Last 24 Hours: Vital Signs Temp Pulse Pulse Resp BP Pulse Ox O2 Del Method 03/01/23 09:00 Room Air 03/01/23 08:00 98 F 68 18 148/63 H 92 L Room Air 03/01/23 06:57 Room Air 03/01/23 05:00 Room Air 03/01/23 04:00 97.6 F 71 16 141/66 H 95 Room Air 03/01/23 03:00 Room Air 03/01/23 01:00 Room Air 02/28/23 23:00 Room Air 02/28/23 21:00 Room Air 02/28/23 20:00 Room Air 02/28/23 20:00 98.4 F 87 16 135/57 L 91 L Room Air 02/28/23 19:00 Room Air 02/28/23 16:00 60 02/28/23 17:00 Room Air 02/28/23 15:53 98.1 F 78 16 156/81 H 91 L Room Air 02/28/23 12:00 70 02/28/23 13:00 Room Air 02/28/23 11:00 Nasal Cannula 02/28/23 11:48 97.4 F L 70 17 108/45 L 91 L Room Air 02/28/23 10:28 17 O2 Flow Rate 03/01/23 09:00 03/01/23 08:00 03/01/23 06:57 03/01/23 05:00 03/01/23 04:00 03/01/23 03:00 03/01/23 01:00 02/28/23 23:00 02/28/23 21:00 02/28/23 20:00 02/28/23 20:00 02/28/23 19:00 02/28/23 16:00 02/28/23 17:00 02/28/23 15:53 02/28/23 12:00 02/28/23 13:00 02/28/23 11:00 3 02/28/23 11:48 02/28/23 10:28 Intake and Output 02/28/23 03/01/23 03/01/23 23:59 07:59 15:59 Output Total 300 / 300 Balance -300 / -300 Output: Output, Urine Amount 300 / 300 Other: Number of Unmeasured Voids 0 Weight 72.575 kg Patient Weight 03/01/23 23:59 Weight 72.575 kg Laboratory Results - last 24 hr 03/01/23 06:15: Sodium 138, Potassium 3.3 L, Chloride 104, Carbon Dioxide 22, Anion Gap 15.3 H, BUN 16, Creatinine 0.80, Estimated Creat Clear 65, Estimated GFR 94, Est GFR ( Amer) 114, Glucose 81, Calcium 8.4, Total Bilirubin 0.5, AST 36, ALT 21, Alkaline Phosphatase 71, Total Protein 6.6, Albumin 3.4 L, Globulin 3.2, Albumin/Globulin Ratio 1.1 I & O for Labs for Last 24 Hours: Intake & Output 02/26/23 02/27/23 02/28/23 03/01/23 23:59 23:59 23:59 23:59 Intake Total 2983 / 3708 965 / 1025 723 / 723 Output Total 2950 / 2950 550 / 950 650 / 650 300 / 300 Balance 33 / 758 415 / 75 73 / 73 -300 / -300 Weight 72.32 kg 72.32 kg 73.573 kg 72.575 kg The patient's infection will respond to the chosen ABx?: Yes Is the patient receiving the right drug, dose, and route?: Yes Could a more targeted ABx be ordered?: No (WBC DECREASED TO WNL, NO GROWTH IN BLD CX.)
--- NOTE | 2023-03-01 13:41 | EXP.PN ---
Subjective *Date: 03/01/23 *Time: 13:44 Interval history: Patient seen and evaluated at the bedside. 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 Exam Data for Last 24 hours Vital signs and Labs for Last 24 Hours: Temp Pulse Resp BP Pulse Ox O2 Del Method O2 Flow Rate 98 F 68 18 148/63 H 92 L Room Air 3 03/01/23 08:00 03/01/23 08:00 03/01/23 08:00 03/01/23 08:00 03/01/23 08:00 03/01/23 13:00 02/28/23 11:00 Laboratory Results - last 24 hr 03/01/23 06:15: Sodium 138, Potassium 3.3 L, Chloride 104, Carbon Dioxide 22, Anion Gap 15.3 H, BUN 16, Creatinine 0.80, Estimated Creat Clear 65, Estimated GFR 94, Est GFR ( Amer) 114, Glucose 81, Calcium 8.4, Total Bilirubin 0.5, AST 36, ALT 21, Alkaline Phosphatase 71, Total Protein 6.6, Albumin 3.4 L, Globulin 3.2, Albumin/Globulin Ratio 1.1 Temp Pulse Resp BP Pulse Ox O2 Del Method O2 Flow Rate 98 F 68 18 148/63 H 92 L Room Air 3 03/01/23 08:00 03/01/23 08:00 03/01/23 08:00 03/01/23 08:00 03/01/23 08:00 03/01/23 08:00 02/28/23 11:00 Laboratory Results - last 24 hr 03/01/23 06:15: Sodium 138, Potassium 3.3 L, Chloride 104, Carbon Dioxide 22, Anion Gap 15.3 H, BUN 16, Creatinine 0.80, Estimated Creat Clear 65, Estimated GFR 94, Est GFR ( Amer) 114, Glucose 81, Calcium 8.4, Total Bilirubin 0.5, AST 36, ALT 21, Alkaline Phosphatase 71, Total Protein 6.6, Albumin 3.4 L, Globulin 3.2, Albumin/Globulin Ratio 1.1 I & O for Last 24 hours: Intake & Output 02/26/23 02/27/23 02/28/23 03/01/23 23:59 23:59 23:59 23:59 Intake Total 2983 / 3708 965 / 1025 723 / 723 420 / 420 Output Total 2950 / 2950 550 / 950 650 / 650 300 / 300 Balance 33 / 758 415 / 75 73 / 73 120 / 120 Weight 72.32 kg 72.32 kg 73.573 kg 72.575 kg Intake & Output 02/26/23 02/27/23 02/28/23 03/01/23 11:59 11:59 11:59 11:59 Intake Total 3703 / 3703 1805 / 1805 723 / 723 Output Total 1250 / 1250 2250 / 2250 650 / 650 300 / 300 Balance 2453 / 2453 -445 / -445 73 / 73 -300 / -300 Weight 159 lb 7 oz 159 lb 7.013 oz 162 lb 3.2 oz 160 lb *Routine Abdominal Exam Abdominal: Present soft Comments: Appears nondistended. Abdomen is soft with minor incisional tenderness. Incision clean dry and intact. Assessment and Plan *Assessment and plan (1) Abdominal pain: Status: Acute Category: Medical Code(s): R10.9 - Unspecified abdominal pain (2) S/P right hemicolectomy: Status: Acute Category: Surgical Code(s): Z90.49 - Acquired absence of other specified parts of digestive tract (3) Ischemic colitis: Status: Acute Category: Medical Code(s): K55.9 - Vascular disorder of intestine, unspecified (4) Hx of coronary artery bypass graft: Status: Chronic Category: Surgical Code(s): Z95.1 - Presence of aortocoronary bypass graft (5) H/O: lung cancer: Status: Acute Category: Medical Code(s): Z85.118 - Personal history of other malignant neoplasm of bronchus and lung (6) CAD (coronary artery disease): Status: Acute Qualifiers: Coronary Disease-Associated Artery/Lesion type: bypass graft [place] vs. transplanted heart: [place] heart Associated angina: without angina Qualified Code(s): I25.810 - Atherosclerosis of coronary artery bypass graft(s) without angina pectoris Category: Medical Code(s): I25.10 - Atherosclerotic heart disease of [place] coronary artery without angina pectoris (7) PAD (peripheral artery disease): Status: Acute Category: Medical Code(s): I73.9 - Peripheral vascular disease, unspecified (8) COPD (chronic obstructive pulmonary disease): Status: Chronic Qualifiers: COPD type: unspecified COPD Qualified Code(s): J44.9 - Chronic obstructive pulmonary disease, unspecified Category
[2023-03-01 15:16] VITALS: BP 142/61; PULSE 74; RESP 18; TEMP 36.6; O2SAT 94
--- NOTE | 2023-03-01 18:31 | PC.NURSE ---
Pt A&Ox4, pt has ambulated through the diaz several times this shift, tolerated well. Patient has complained of pain 2 times this shift, treated per MAR. Pt lung sounds clear. Abdominal incision clean and dry, open to air. Pt has complained that it is sore. Pt did not receive full dose of flagyl due to IV going bad, multiple attempts to get new one, including ultrasound attempt. Pt is passing some gas.
[2023-03-01 20:00] VITALS: BP 175/77; PULSE 75; RESP 17; TEMP 36.4; O2SAT 96
[2023-03-02] VITALS (14 sets, daily range): BP systolic 56–173; BP diastolic 30–74; PULSE 62–131; RESP 16–20; TEMP 36.4–36.7; O2SAT 92–100; BMI 27.5
--- NOTE | 2023-03-02 06:45 | EXP.SURG.PN ---
Subjective Narrative: Patient have issues with IV access overnight. Tolerating clear liquids without nausea. He states he has passed lots of gas . No bowel movement. Acute abdominal series yesterday showed findings consistent with postoperative ileus. Exam Data for Last 24 hours Vital signs and Labs for Last 24 Hours: Temp Pulse Resp BP Pulse Ox O2 Del Method O2 Flow Rate 97.6 F 70 18 173/74 H 95 Room Air 3 03/02/23 04:00 03/02/23 04:00 03/02/23 04:00 03/02/23 04:00 03/02/23 04:00 03/02/23 06:33 02/28/23 11:00 I & O for Last 24 hours: Intake & Output 02/27/23 02/28/23 03/01/23 03/02/23 11:59 11:59 11:59 11:59 Intake Total 1805 / 1805 723 / 723 1034 / 1034 Output Total 2250 / 2250 650 / 650 300 / 300 0 / 0 Balance -445 / -445 73 / 73 -300 / -300 1034 / 1034 Weight 159 lb 7.013 oz 162 lb 3.2 oz 160 lb 171 lb 3.2 oz *Routine Abdominal Exam Abdominal: Present soft; Absent tenderness Progress Note: A&P Assessment and plan (1) Abdominal pain: Status: Acute (2) S/P right hemicolectomy: Status: Acute (3) Ischemic colitis: Status: Acute (4) Hx of coronary artery bypass graft: Status: Chronic (5) H/O: lung cancer: Status: Acute (6) CAD (coronary artery disease): Status: Acute (7) PAD (peripheral artery disease): Status: Acute (8) COPD (chronic obstructive pulmonary disease): Status: Chronic Assessment and Plan Assessment and Plan for All Diagnoses:: I will go ahead and give him full liquids at this time. Hopeful discharge soon
--- NOTE | 2023-03-02 07:33 | ECG_ITS ---
APPROVED REPORT Exam: Resting ECG HR:131 bpm ECG Measurements Heart Rate 131 AXES QRSd 114 QRS 63 QT 304 T 27 QTc 381 Conclusion ATRIAL FIBRILLATION WITH RAPID VENTRICULAR RESPONSE WITH ABERRANT CONDUCTION OR VENTRICULAR PREMATURE COMPLEXES MODERATE INTRAVENTRICULAR CONDUCTION DELAY [110+ ms QRS DURATION] NONSPECIFIC ST & T-WAVE ABNORMALITY ABNORMAL RHYTHM ECG UNCONFIRMED REPORT Electronically signed by : Curtis Montes MD 03/02/2023 16:07:32
--- NOTE | 2023-03-02 07:45 | XR_ITS ---
FINAL REPORT TECHNIQUE: Single view chest CLINICAL HISTORY: sob COMPARISON: 09/01/2022 FINDINGS: A single view of the chest was obtained. The heart is at the upper limits of normal. Patient is status post median sternotomy. There is chronic scarring. The lungs are otherwise clear. There is no pneumothorax. Osseous structures are unremarkable. IMPRESSION: No acute cardiopulmonary process. Reviewed, Interpreted and Dictated by Jakub Jansen MD Transcribed by Rach Sotomayor Authenticated and . [facility]
--- NOTE | 2023-03-02 08:04 | PC.NURSE ---
0734-THIS RN MADE AWARE OF PATIENT C/O CHEST PAIN. ENTERED ROOM TO ASSESS PT. FULL SET VITAL SIGNS OBTAINED. STAT EKG OBTAINED. 0738- MD TYSON MADE AWARE OF PT SYMPTOMS AND VITALS SIGNS. NS BOLUS 250 ML/HR, STAT CXRAY, STAT TROPONINS. 0742- MD Nina FONSECA MADE AWARE OF PT CONDITION. V/O FOR 200MCG PHENYLEPHRINE IV PUSH AND 10 MG IV DILTIAZEM. 0745- MD TYSON MADE AWARE OF CARDIOLOGY RECOMMENDATIONS. THIS RN INSTRUCTED TO HOLD OFF ON ADMINISTRATION OF IV DILT AND IV PHENYLEPHERINE UNTIL BOLUS COMPLETED.
[2023-03-02 08:51] LABS: Troponin I 0.46 ng/ml (0.00-0.034)
--- NOTE | 2023-03-02 12:28 | PC.NURSE ---
courtesy tech note: patient rounded on. patient resting in bed. call light w/in reach
[2023-03-02 14:59] LABS: Troponin I 1.57 ng/ml (0.00-0.034)
--- NOTE | 2023-03-02 15:12 | EXP.PN ---
Subjective *Date: 03/03/23 *Time: 16:38 Interval history: seen at bedside, called by RN for BP. arrived at bedside, patient is sitting in bed, complaining of dull chest pain, patientdenied Exam Data for Last 24 hours Vital signs and Labs for Last 24 Hours: Temp Pulse Resp BP Pulse Ox O2 Del Method O2 Flow Rate 97.6 F 131 H 18 56/30 L 92 L Room Air 3 03/02/23 11:14 03/02/23 08:00 03/02/23 07:50 03/02/23 07:50 03/02/23 07:50 03/02/23 11:00 02/28/23 11:00 Laboratory Results - last 24 hr 03/02/23 08:06: Troponin I 0.46 H 03/02/23 13:42: Troponin I 1.57 H I & O for Last 24 hours: Intake & Output 02/27/23 02/28/23 03/01/23 03/02/23 23:59 23:59 23:59 23:59 Intake Total 965 / 1025 723 / 723 904 / 904 610 / 610 Output Total 550 / 950 650 / 650 300 / 300 0 / 0 Balance 415 / 75 73 / 73 604 / 604 610 / 610 Weight 72.32 kg 73.573 kg 72.575 kg 77.655 kg Assessment and Plan *Assessment and plan (1) Abdominal pain: Status: Acute Category: Medical Code(s): R10.9 - Unspecified abdominal pain (2) S/P right hemicolectomy: Status: Acute Category: Surgical Code(s): Z90.49 - Acquired absence of other specified parts of digestive tract (3) Ischemic colitis: Status: Acute Category: Medical Code(s): K55.9 - Vascular disorder of intestine, unspecified (4) Hx of coronary artery bypass graft: Status: Chronic Category: Surgical Code(s): Z95.1 - Presence of aortocoronary bypass graft (5) H/O: lung cancer: Status: Acute Category: Medical Code(s): Z85.118 - Personal history of other malignant neoplasm of bronchus and lung (6) CAD (coronary artery disease): Status: Acute Qualifiers: Coronary Disease-Associated Artery/Lesion type: bypass graft [place] vs. transplanted heart: [place] heart Associated angina: without angina Qualified Code(s): I25.810 - Atherosclerosis of coronary artery bypass graft(s) without angina pectoris Category: Medical Code(s): I25.10 - Atherosclerotic heart disease of [place] coronary artery without angina pectoris (7) PAD (peripheral artery disease): Status: Acute Category: Medical Code(s): I73.9 - Peripheral vascular disease, unspecified (8) COPD (chronic obstructive pulmonary disease): Status: Chronic Qualifiers: COPD type: unspecified COPD Qualified Code(s): J44.9 - Chronic obstructive pulmonary disease, unspecified Category: Medical Code(s): J44.9 - Chronic obstructive pulmonary disease, unspecified Plan Patient is a 77-year-old male with a history of hypertension hyperlipidemia, CAD status post CABG who presents to the hospital due to abdominal distention, abdominal pain. Medicine has been consulted for medical management. Assessment Abdominal pain, status post hemicolectomy Ischemic colitis CAD PAD Hypertension COPD Plan Pain control, repeat xrays does show post operative ileus cardiology consulted for Afib RVR, on metoprolol advance as tolerated per primary team Ambulate as tolerated Up to chair Continue antibiotics with cefepime and flagyl Continue Lipitor, aspirin, Plavix Continue metoprolol, isosorbide, mirtazapine, montelukast, Trelegy inhaler, DuoNebs every 6 hours as needed DVT prophylaxis-Per primary team
--- NOTE | 2023-03-02 16:03 | DIET.NUTRFU ---
Ptarobert was advnced to full liquid diet today, tolerating better. He has been on clear liquids or NPO since admit on 02/25 secondary to sx. Will add ensure with meals to help meet nutritional needs. Patient is not noted to have BM during stay, lots of gas noted. Acute abdominal series yesterday showed findings consistent with postoperative ileus.
--- NOTE | 2023-03-02 18:55 | PC.NURSE ---
Pt HR and BP has remained stable since moving to Step Down. Has c/o some discomfort to abdomen. Midline incision is FARIDEH. No drainage noted. Medications administered per mar. Call light within reach.
[2023-03-03] VITALS (15 sets, daily range): BP systolic 85–150; BP diastolic 48–74; PULSE 51–80; RESP 14–18; TEMP 36.3–36.9; O2SAT 91–98; BMI 27.3
--- NOTE | 2023-03-03 03:41 | PC.NURSE ---
VS stable. 2LNC added as patient would drop to 87-88% oxygen saturation while sleeping. Abdominal pain reported, prn pain medication given with relief noted. Abdomen soft, bowel sounds active. Some bleeding noted after patient began to cough. Site intact and quickly stopped bleeding. Dressing applied and no other episodes of bleeding noted.
--- NOTE | 2023-03-03 10:22 | P.PN_ITS ---
Subjective Narrative: No acute events overnight. He is now in sinus rhythm with heart rate of 78. He denies chest pain. He reports that he feels a lot better today, about 80% well . He has passed lots of flatus but has not had a bowel movement, although he feels that he will have one soon. He is tolerating his full liquid diet wit hout issues today. He did have vomiting yesterday during his episode of atrial fibrillation. He would like to get up and walk. The nurses note that he had some old bloody drainage from his wound where he thought he may have popped a staple when he was coughing. No further drainage today. Exam Data for Last 24 hours Vital signs and Labs for Last 24 Hours: Temp Pulse Resp BP Pulse Ox O2 Del Method O2 Flow Rate 98.4 F 70 16 136/62 98 Room Air 2 03/03/23 07:46 03/03/23 08:00 03/03/23 06:00 03/03/23 06:00 03/03/23 06:00 03/03/23 07:42 03/03/23 06:31 Laboratory Results - last 24 hr 03/02/23 13:42: Troponin I 1.57 H I & O for Last 24 hours: Intake & Output 02/28/23 03/01/23 03/02/23 03/03/23 23:59 23:59 23:59 23:59 Intake Total 723 / 723 904 / 904 950 / 950 200 / 200 Output Total 650 / 650 300 / 300 1575 / 1575 200 / 200 Balance 73 / 73 604 / 604 -625 / -625 0 / 0 Weight 162 lb 3.2 oz 160 lb 171 lb 3.2 oz 170 lb 6.4 oz Constitutional Constitutional: no acute distress and cooperative *Routine Respiratory Exam Respiratory: Present CTA bilaterally; Absent accessory muscle use *Routine Cardiovascular Exam Cardiovascular: Present RRR and Normal S1 Comments: Sinus rhythm on monitor *Routine Abdominal Exam Abdominal: Present soft; Absent distended Comments: Absent bowel sounds. Midline incision with apurva without surrounding erythema. There is a small amount of old bloody drainage on an ABD pad and on his clothing. I tried to express more drainage from the wound but is not able to. There may be 1 staple missing from the upper part of the wound. Progress Note: A&P Assessment and plan (1) Abdominal pain: Status: Acute (2) S/P right hemicolectomy: Status: Acute Assessment and plan: Postoperative ileus. He is tolerating diet, but does not have good bowel sounds. Repeat KUB in the morning. If he has a favorable x-ray and bowel sounds, can advance diet. Continue with full liquids for now. He may have expressed a small hematoma while coughing, but he does not seem to have any residual. I do not feel that he had any signs of fascial dehiscence on my exam today. Continue dressing to wound as needed for any drainage. Okay to continue Eliquis (this will serve as DVT plexus). Okay to ambulate in halls from my standpoint if okay with cardiology and hospitalist service. Encourage pulmonary toilet (I-S was only 1500).He has apparently converted to sinus rhythm. Appreciate consultants further management of atrial fibrillation.Did not have CBC and CMP yesterday. Check CBC and CMP now, and tomorrow. He was hypokalemic the day before last and I would like to make sure his electrolytes are optimized so does not predispose to further arrhythmia. (3) Ischemic colitis: Status: Acute (4) Hx of coronary artery bypass graft: Status: Chronic (5) H/O: lung cancer: Status: Acute (6) CAD (coronary artery disease): Status: Acute (7) PAD (peripheral artery disease): Status: Acute (8) COPD (chronic obstructive pulmonary disease): Status: Chronic
[2023-03-03 10:42] LABS: Basophils % 0.2 % (0.1-2.0); Eosinophils # 0.6 K/mm3 (0.0-0.4); Eosinophils % 7.3 % (0.1-12.0); Hemoglobin 10.3 g/dL (14.1-18.0); Lymphocytes # 0.5 K/mm3 (0.7-4.5); Lymphocytes % 5.8 % (10-50); Mean Corpuscular HGB Conc 33.1 g/dL (31.8-35.4); Mean Corpuscular Hemoglobin 27.5 pg (27.0-31.2); Mean Platelet Volume 9.2 fl (7.4-10.4); Monocytes # 0.5 K/mm3 (0.1-1.0); Monocytes % 5.5 % (1.7-9.3); Neutrophils % 81.2 % (37.0-80.0); Platelet Count 291 K/mm3 (142-424); Red Blood Count 3.74 M/mm3 (4.60-6.20); Red Cell Distribution Width 18.8 % (11.5-17.5); White Blood Count 8.6 K/mm3 (4.8-10.8)
[2023-03-03 10:44] LABS: Chloride 103 mmol/L (98-107); Potassium 3.3 mmoL/L (3.5-5.1); Sodium 138 mmol/L (136-145)
[2023-03-03 10:47] LABS: Alanine Aminotransferase 31 U/L (12-78); Albumin Level 3.3 g/dl (3.5-5.0); Albumin/Globulin Ratio 1.1 (1.1-1.8); Alkaline Phosphatase 62 U/L (38-126); Anion Gap 10.3 mEq/L (5-15); Aspartate Amino Transferase 48 U/L (17-59); Bilirubin,Total 0.2 mg/dl (0.2-1.3); Blood Urea Nitrogen 12 mg/dl (9-20); Carbon Dioxide 28 mmol/L (22.0-30.0); Creatinine Clearance Estimated 69 mL/min (50-200); Estimated Glomerular Filt Rate 82 ml/min (>60); GFR (African American) 99 ML/MIN (>60); Globulin 2.9 g/dL (1.3-3.2); Glucose 175 mg/dl (74-100); Total Protein,Serum 6.2 g/dl (6.3-8.2)
--- NOTE | 2023-03-03 16:44 | EXP.PN ---
Subjective *Date: 03/03/23 *Time: 16:44 Interval history: Patient seen and evaluated at the bedside. 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 Exam Data for Last 24 hours Vital signs and Labs for Last 24 Hours: Temp Pulse Resp BP Pulse Ox O2 Del Method O2 Flow Rate 97.8 F 69 18 92/49 L 91 L Room Air 2 03/03/23 11:55 03/03/23 13:00 03/03/23 13:00 03/03/23 13:00 03/03/23 13:00 03/03/23 15:00 03/03/23 06:31 Laboratory Results - last 24 hr 03/03/23 10:15: WBC 8.6, RBC 3.74 L, Hgb 10.3 L, Hct 31.0 L, MCV 83.0, MCH 27.5, MCHC 33.1, RDW 18.8 H, Plt Count 291, MPV 9.2, Neut % (Auto) 81.2 H, Lymph % (Auto) 5.8 L, [place] % (Auto) 5.5, Eos % (Auto) 7.3, Baso % (Auto) 0.2, Neut # (Auto) 7.0, Lymph # (Auto) 0.5 L, [place] # (Auto) 0.5, Eos # (Auto) 0.6 H, Baso # (Auto) 0.0, Sodium 138, Potassium 3.3 L, Chloride 103, Carbon Dioxide 28, Anion Gap 10.3, BUN 12, Creatinine 0.90, Estimated Creat Clear 69, Estimated GFR 82, Est GFR ( Amer) 99, Glucose 175 H, Calcium 8.0 L, Total Bilirubin 0.2, AST 48 D, ALT 31 D, Alkaline Phosphatase 62, Total Protein 6.2 L, Albumin 3.3 L, Globulin 2.9, Albumin/Globulin Ratio 1.1 Temp Pulse Resp BP Pulse Ox O2 Del Method O2 Flow Rate 98 F 68 18 148/63 H 92 L Room Air 3 03/01/23 08:00 03/01/23 08:00 03/01/23 08:00 03/01/23 08:00 03/01/23 08:00 03/01/23 08:00 02/28/23 11:00 Laboratory Results - last 24 hr 03/01/23 06:15: Sodium 138, Potassium 3.3 L, Chloride 104, Carbon Dioxide 22, Anion Gap 15.3 H, BUN 16, Creatinine 0.80, Estimated Creat Clear 65, Estimated GFR 94, Est GFR ( Amer) 114, Glucose 81, Calcium 8.4, Total Bilirubin 0.5, AST 36, ALT 21, Alkaline Phosphatase 71, Total Protein 6.6, Albumin 3.4 L, Globulin 3.2, Albumin/Globulin Ratio 1.1 I & O for Last 24 hours: Intake & Output 02/28/23 03/01/23 03/02/23 03/03/23 23:59 23:59 23:59 23:59 Intake Total 723 / 723 904 / 904 950 / 950 980 / 980 Output Total 650 / 650 300 / 300 1575 / 1575 200 / 200 Balance 73 / 73 604 / 604 -625 / -625 780 / 780 Weight 73.573 kg 72.575 kg 77.655 kg 77.292 kg Intake & Output 02/26/23 02/27/23 02/28/23 03/01/23 11:59 11:59 11:59 11:59 Intake Total 3703 / 3703 1805 / 1805 723 / 723 Output Total 1250 / 1250 2250 / 2250 650 / 650 300 / 300 Balance 2453 / 2453 -445 / -445 73 / 73 -300 / -300 Weight 159 lb 7 oz 159 lb 7.013 oz 162 lb 3.2 oz 160 lb *Routine Abdominal Exam Abdominal: Present soft Comments: Appears nondistended. Abdomen is soft with minor incisional tenderness. Incision clean dry and intact. Assessment and Plan *Assessment and plan (1) Abdominal pain: Status: Acute Category: Medical Code(s): R10.9 - Unspecified abdominal pain (2) S/P right hemicolectomy: Status: Acute Category: Surgical Code(s): Z90.49 - Acquired absence of other specified parts of digestive tract (3) Ischemic colitis: Status: Acute Category: Medical Code(s): K55.9 - Vascular disorder of intestine, unspecified (4) Hx of coronary artery bypass graft: Status: Chronic Category: Surgical Code(s): Z95.1 - Presence of aortocoronary bypass graft (5) H/O: lung cancer: Status: Acute Category: Medical Code(s): Z85.118 - Personal history of other malignant neoplasm of bronchus and lung (6) CAD (coronary artery disease): Status: Acute Qualifiers: Coronary Disease-Associated Artery/Lesion type: bypass graft [place] vs. transplanted heart: [place] heart Associated angina: without angina Qualified Code(s): I25.810 - Atherosclerosis of coronary artery bypass graft(s) without angina pectoris Category: Medical Code(s): I25.10 - Atherosclerotic heart disease of [place] coronary artery without angina pectoris (7) PAD (peripheral artery
--- NOTE | 2023-03-03 18:53 | PC.NURSE ---
Increased drainage noted from pt's incision site noted. MD Leary notified. DSG placed to abdomen. Decrease ambulation overnight and notify her of changes. Labs also discussed. New orders received to give K+ 60 meq total IV.
[2023-03-04] VITALS (10 sets, daily range): BP systolic 107–167; BP diastolic 44–82; PULSE 60–80; RESP 16–18; TEMP 36.4–37.2; O2SAT 94–96; BMI 27.3
--- NOTE | 2023-03-04 06:00 | XR_ITS ---
PROCEDURE INFORMATION: Exam: XR Abdomen Exam date and time: 03/04/2023 5:48 AM Age: 77 years old Clinical indication: Abdominal pain; Additional info: Follow up ileus TECHNIQUE: Imaging protocol: Radiologic exam of the abdomen. Views: Frontal supine view of the abdomen. 1 View. COMPARISON: CR XR ACUTE ABDOMEN SERIES 03/01/2023 9:47 AM FINDINGS: Gastrointestinal tract: Mildly dilated loops of bowel in the left abdomen may represent ileus or obstruction. No significant change.. Bones/joints: Median sternotomy IMPRESSION: Mildly dilated loops of bowel in the left abdomen may represent ileus or obstruction. No significant change..
[2023-03-04 07:46] LABS: Basophils % 0.2 % (0.1-2.0); Eosinophils # 0.7 K/mm3 (0.0-0.4); Eosinophils % 9.2 % (0.1-12.0); Hematocrit 28.9 % (42.0-52.0); Hemoglobin 9.5 g/dL (14.1-18.0); Lymphocytes # 0.7 K/mm3 (0.7-4.5); Lymphocytes % 9.7 % (10-50); Mean Corpuscular Hemoglobin 27.2 pg (27.0-31.2); Mean Corpuscular Volume 82.5 fl (80-94); Mean Platelet Volume 8.2 fl (7.4-10.4); Monocytes # 0.5 K/mm3 (0.1-1.0); Monocytes % 6.4 % (1.7-9.3); Neutrophils # 5.5 K/mm3 (1.8-7.8); Neutrophils % 74.5 % (37.0-80.0); Platelet Count 286 K/mm3 (142-424); Red Blood Count 3.51 M/mm3 (4.60-6.20); White Blood Count 7.4 K/mm3 (4.8-10.8)
[2023-03-04 07:50] LABS: Alanine Aminotransferase 24 U/L (12-78); Albumin Level 3.1 g/dl (3.5-5.0); Albumin/Globulin Ratio 1.1 (1.1-1.8); Alkaline Phosphatase 60 U/L (38-126); Anion Gap 8.7 mEq/L (5-15); Aspartate Amino Transferase 41 U/L (17-59); Bilirubin,Total 0.3 mg/dl (0.2-1.3); Blood Urea Nitrogen 11 mg/dl (9-20); Calcium 7.7 mg/dl (8.4-10.2); Carbon Dioxide 28 mmol/L (22.0-30.0); Chloride 103 mmol/L (98-107); Creatinine Clearance Estimated 69 mL/min (50-200); Estimated Glomerular Filt Rate 110 ml/min (>60); GFR (African American) 133 ML/MIN (>60); Globulin 2.9 g/dL (1.3-3.2); Glucose 100 mg/dl (74-100); Potassium 3.7 mmoL/L (3.5-5.1); Sodium 136 mmol/L (136-145)
--- NOTE | 2023-03-04 08:02 | CT_ITS ---
PROCEDURE INFORMATION: Exam: CT Abdomen Without Contrast Exam date and time: 03/04/2023 8:29 AM Age: 77 years old Clinical indication: Other: Increased drainage, swelling at incision site; Prior surgery; Surgery date: 3-7 days post-operative; Surgery type: Bowel obstruction; Additional info: Increase in drainage/fluid TECHNIQUE: Imaging protocol: Computed tomography of the abdomen without contrast. Radiation optimization: All CT scans at this facility use at least one of these dose optimization techniques: automated exposure control; mA and/or kV adjustment per patient size (includes targeted exams where dose is matched to clinical indication); or iterative reconstruction. REPORTING DATA: Count of CT and Cardiac NM exams in prior 12 months: This patient has received 11 known CTs and 0 known cardiac nuclear medicine studies in the 12 months prior to the current study. COMPARISON: CT ABDOMEN PELVIS W CON 02/25/2023 12:12 PM FINDINGS: Tubes, catheters and devices: Sutures in the midline. Air adjacent to the sutures consistent with recent surgery series 3, image 45. Lungs: Consolidation in both lower lobes may represent atelectasis or pneumonia..Impression . Pleural spaces: Mild bilateral pleural effusions. . Heart: There is calcification of the mitral valve annulus. There is calcification of the aortic valve annulus. Liver: Normal. No mass. Gallbladder and bile ducts: Normal. No calcified stones. No ductal dilation. Pancreas: Normal. No ductal dilation. Spleen: Normal. No splenomegaly. Adrenal glands: Normal. No mass. Kidneys and ureters: Multiple simple cysts in both kidneys. . No follow-up imaging recommended . Stomach and bowel: There is a small air-fluid collection medial to the cecum 2.7 x 1.5 cm. Series 3, image 55. Findings may reflect small abscess or hematoma.. Mild inflammatory changes around the cecum. Sutures in the cecum consistent with recent surgery . Diverticulosis of the rectosigmoid. No diverticulitis Intraperitoneal space: Pneumoperitoneum and multiple locations in the upper abdomen consistent with recent surgery.. Mild amount of free fluid in the pelvis Vasculature: Unremarkable. No abdominal aortic aneurysm. Lymph nodes: Unremarkable. No enlarged lymph nodes. Bones/joints: Unremarkable. No acute fracture. No dislocation. Soft tissues: See Stomach and bowel finding. IMPRESSION: 1. Pneumoperitoneum and multiple locations in the upper abdomen consistent with recent surgery.. 2. There is a small air-fluid collection medial to the cecum 2.7 x 1.5 cm. Series 3, image 55. Findings may reflect small abscess or hematoma.. 3. Mild bilateral pleural effusions. . 4. Sutures in the midline. Air adjacent to the sutures consistent with recent surgery series 3, image 45. 5. Mild inflammatory changes around the cecum. Sutures in the cecum consistent with recent surgery . COMMENTS: Consistent with the [employer]'s Incidental Findings Committee white paper (J Am Benjie Radiol 2018): Any incidental renal lesion less than 1 cm or classified as too small to characterize, or any incidental cystic renal lesion characterized as simple-appearing, is likely benign. No follow-up imaging is recommended for these lesions per consensus recommendations based on imaging criteria.
--- NOTE | 2023-03-04 13:56 | EXP.PN ---
Subjective *Date: 03/04/23 *Time: 13:56 Interval history: Patient seen and evaluated at the bedside. at bedside, No BM since surgery, Patient denied chest pain nausea vomiting diarrhea constipation dysuria fevers chills shortness of breath. Exam Data for Last 24 hours Vital signs and Labs for Last 24 Hours: Temp Pulse Resp BP Pulse Ox O2 Del Method O2 Flow Rate 97.6 F 62 16 107/44 L 94 L Room Air 2 03/04/23 11:34 03/04/23 11:34 03/04/23 11:34 03/04/23 11:34 03/04/23 11:34 03/04/23 13:00 03/03/23 19:50 Laboratory Results - last 24 hr 03/04/23 07:22: WBC 7.4, RBC 3.51 L, Hgb 9.5 L, Hct 28.9 L, MCV 82.5, MCH 27.2, MCHC 33.0, RDW 19.0 H, Plt Count 286, MPV 8.2, Neut % (Auto) 74.5, Lymph % (Auto) 9.7 L, Sac % (Auto) 6.4, Eos % (Auto) 9.2, Baso % (Auto) 0.2, Neut # (Auto) 5.5, Lymph # (Auto) 0.7, Sac # (Auto) 0.5, Eos # (Auto) 0.7 H, Baso # (Auto) 0.0, Sodium 136, Potassium 3.7, Chloride 103, Carbon Dioxide 28, Anion Gap 8.7, BUN 11, Creatinine 0.70 D, Estimated Creat Clear 69, Estimated GFR 110, Est GFR ( Amer) 133 D, Glucose 100 D, Calcium 7.7 L, Total Bilirubin 0.3, AST 41, ALT 24, Alkaline Phosphatase 60, Total Protein 6.0 L, Albumin 3.1 L, Globulin 2.9, Albumin/Globulin Ratio 1.1 Temp Pulse Resp BP Pulse Ox O2 Del Method O2 Flow Rate 98 F 68 18 148/63 H 92 L Room Air 3 03/01/23 08:00 03/01/23 08:00 03/01/23 08:00 03/01/23 08:00 03/01/23 08:00 03/01/23 08:00 02/28/23 11:00 Laboratory Results - last 24 hr 03/01/23 06:15: Sodium 138, Potassium 3.3 L, Chloride 104, Carbon Dioxide 22, Anion Gap 15.3 H, BUN 16, Creatinine 0.80, Estimated Creat Clear 65, Estimated GFR 94, Est GFR ( Amer) 114, Glucose 81, Calcium 8.4, Total Bilirubin 0.5, AST 36, ALT 21, Alkaline Phosphatase 71, Total Protein 6.6, Albumin 3.4 L, Globulin 3.2, Albumin/Globulin Ratio 1.1 I & O for Last 24 hours: Intake & Output 03/01/23 03/02/23 03/03/23 03/04/23 23:59 23:59 23:59 23:59 Intake Total 904 / 904 950 / 950 1730 / 1730 200 / 200 Output Total 300 / 300 1575 / 1575 600 / 800 800 / 800 Balance 604 / 604 -625 / -625 1130 / 930 -600 / -600 Weight 72.575 kg 77.655 kg 77.292 kg 77.337 kg Intake & Output 02/26/23 02/27/23 02/28/23 03/01/23 11:59 11:59 11:59 11:59 Intake Total 3703 / 3703 1805 / 1805 723 / 723 Output Total 1250 / 1250 2250 / 2250 650 / 650 300 / 300 Balance 2453 / 2453 -445 / -445 73 / 73 -300 / -300 Weight 159 lb 7 oz 159 lb 7.013 oz 162 lb 3.2 oz 160 lb *Routine Abdominal Exam Abdominal: Present soft Comments: Appears nondistended. Abdomen is soft with minor incisional tenderness. Incision clean dry and intact. Assessment and Plan *Assessment and plan (1) Abdominal pain: Status: Acute Category: Medical Code(s): R10.9 - Unspecified abdominal pain (2) S/P right hemicolectomy: Status: Acute Category: Surgical Code(s): Z90.49 - Acquired absence of other specified parts of digestive tract (3) Ischemic colitis: Status: Acute Category: Medical Code(s): K55.9 - Vascular disorder of intestine, unspecified (4) Hx of coronary artery bypass graft: Status: Chronic Category: Surgical Code(s): Z95.1 - Presence of aortocoronary bypass graft (5) H/O: lung cancer: Status: Acute Category: Medical Code(s): Z85.118 - Personal history of other malignant neoplasm of bronchus and lung (6) CAD (coronary artery disease): Status: Acute Qualifiers: Coronary Disease-Associated Artery/Lesion type: bypass graft [place] vs. transplanted heart: [place] heart Associated angina: without angina Qualified Code(s): I25.810 - Atherosclerosis of coronary artery bypass graft(s) without angina pectoris Category: Medical Code(s): I25.10 - Atherosclerotic heart disease of [place] coronary artery without angina pectoris (7) PAD (peripheral artery disease): Status: Acut
--- NOTE | 2023-03-04 16:05 | EXP.SURG.PN ---
Subjective Narrative: I was called by his nurse overnight for a large gush of salmon-colored fluid from wound. She dressed the wound with an ABD, and it has been dry today. Patient has had some coughing for which he has not really splinted with his pillow. He reports he is passing lots of flatus but no bowel movement yet. He has minimal pain that is controlled on oral pain meds. Reports he is eating about 50% of his diet, but denies nausea or vomiting. A noncontrast CT scan to evaluate for fascial dehiscence/evisceration as the cause for large issue of serous fluid did not show any defect in the fascia. I spoke to the radiologist and also reviewed the report. There was incidental finding of very small fluid collection in the right lower quadrant. Exam Data for Last 24 hours Vital signs and Labs for Last 24 Hours: Temp Pulse Resp BP Pulse Ox O2 Del Method O2 Flow Rate 97.8 F 79 16 151/64 H 95 Room Air 2 03/04/23 15:49 03/04/23 15:49 03/04/23 15:49 03/04/23 15:49 03/04/23 15:49 03/04/23 15:49 03/03/23 19:50 Laboratory Results - last 24 hr 03/04/23 07:22: WBC 7.4, RBC 3.51 L, Hgb 9.5 L, Hct 28.9 L, MCV 82.5, MCH 27.2, MCHC 33.0, RDW 19.0 H, Plt Count 286, MPV 8.2, Neut % (Auto) 74.5, Lymph % (Auto) 9.7 L, [place] % (Auto) 6.4, Eos % (Auto) 9.2, Baso % (Auto) 0.2, Neut # (Auto) 5.5, Lymph # (Auto) 0.7, [place] # (Auto) 0.5, Eos # (Auto) 0.7 H, Baso # (Auto) 0.0, Sodium 136, Potassium 3.7, Chloride 103, Carbon Dioxide 28, Anion Gap 8.7, BUN 11, Creatinine 0.70 D, Estimated Creat Clear 69, Estimated GFR 110, Est GFR ( Amer) 133 D, Glucose 100 D, Calcium 7.7 L, Total Bilirubin 0.3, AST 41, ALT 24, Alkaline Phosphatase 60, Total Protein 6.0 L, Albumin 3.1 L, Globulin 2.9, Albumin/Globulin Ratio 1.1 I & O for Last 24 hours: Intake & Output 03/01/23 03/02/23 03/03/23 03/04/23 23:59 23:59 23:59 23:59 Intake Total 904 / 904 950 / 950 1730 / 1730 920 / 920 Output Total 300 / 300 1575 / 1575 600 / 800 800 / 800 Balance 604 / 604 -625 / -625 1130 / 930 120 / 120 Weight 160 lb 171 lb 3.2 oz 170 lb 6.4 oz 170 lb 8 oz Constitutional Constitutional: no acute distress *Routine Cardiovascular Exam Cardiovascular: Present RRR Comments: Patient was off monitor when I was in the room, but I palpated his radial pulse and the rate was regular. *Routine Abdominal Exam Abdominal: Present normoactive bowel sounds; Absent tenderness Comments: Mildly distended. Midline wound with apurva was dressed with ABD pad which is completely dry. No erythema. I do not palpate any fluctuance under the wound. Progress Note: A&P Assessment and plan (1) Abdominal pain: Status: Acute (2) S/P right hemicolectomy: Status: Acute Assessment and plan: Postoperative day #7 status post 02/25/2023 ileocecectomy for ischemic bowel with perforation. As noted in the HPI, he has had some serous drainage from his wound. CT scan confirmed no fascial dehiscence. I spoke with radiologist and reviewed the images. The fascia is a little indistinct on series 3, image 61. He did not have any palpable seroma under the wound, and none was seen on CT scan suspect the fascia may not be completely watertight but I expect this to resolve with time. He has bowel sounds today and continues to pass flatus. Will advance to general diet. Labs yesterday showed hypokalemia, which I repleted with 60 mEq of IV KCl. Potassium today is 3.7. Other labs are stable. He continues to be in sinus rhythm. Continue ambulation, Lovenox, pulmonary toilet. (3) Ischemic colitis: Status: Acute (4) Hx of coronary artery bypass graft: Status: Chronic (5) H/O: lung cancer: Status: Acute (6) CAD (coronary artery disease): Status: Acute (7) PAD (peripheral artery disease): Status: Acute (8) COPD (chronic obstructive pulmonary disease): Status: Chronic
[2023-03-05] VITALS (9 sets, daily range): BP systolic 130–158; BP diastolic 66–88; PULSE 66–95; RESP 18; TEMP 36.5–37; O2SAT 92–96; BMI 27.8
--- NOTE | 2023-03-05 07:49 | EXP.SURG.PN ---
Subjective Narrative: Patient feels well. He had been advanced to a regular diet yesterday evening. He has tolerated this without issue. He states he still has not moved his bowels however interestingly. He had an episode of drainage of appreciable amount of salmon-colored drainage from his incision yesterday evening. This prompted CT scan of the abdomen. This reveals findings of pneumoperitoneum, small air-fluid collection medial to the cecum measuring 2.7 x 1.5 cm. Exam Data for Last 24 hours Vital signs and Labs for Last 24 Hours: Temp Pulse Resp BP Pulse Ox O2 Del Method O2 Flow Rate 97.9 F 92 H 18 150/88 H 92 L Room Air 2 03/05/23 04:00 03/05/23 06:22 03/05/23 04:00 03/05/23 04:00 03/05/23 04:00 03/05/23 07:00 03/03/23 19:50 Laboratory Results - last 24 hr 03/04/23 07:22: Sodium 136, Potassium 3.7, Chloride 103, Carbon Dioxide 28, Anion Gap 8.7, BUN 11, Creatinine 0.70 D, Estimated Creat Clear 69, Estimated GFR 110, Est GFR ( Amer) 133 D, Glucose 100 D, Calcium 7.7 L, Total Bilirubin 0.3, AST 41, ALT 24, Alkaline Phosphatase 60, Total Protein 6.0 L, Albumin 3.1 L, Globulin 2.9, Albumin/Globulin Ratio 1.1 I & O for Last 24 hours: Intake & Output 03/02/23 03/03/23 03/04/23 03/05/23 11:59 11:59 11:59 11:59 Intake Total 1274 / 1514 1020 / 1020 1850 / 1850 630 / 630 Output Total 0 / 0 1775 / 1775 1200 / 1200 0 / 0 Balance 1274 / 1514 -755 / -755 650 / 650 630 / 630 Weight 171 lb 3.2 oz 170 lb 6.4 oz 170 lb 8 oz 173 lb 7 oz *Routine Abdominal Exam Abdominal: Present soft; Absent tenderness Comments: No evidence of any drainage at this time. Findings of small palpable hematoma in the upper incision. No evidence of any hematoma or fascial dehiscence. Progress Note: A&P Assessment and plan (1) Abdominal pain: Status: Acute (2) S/P right hemicolectomy: Status: Acute (3) Ischemic colitis: Status: Acute (4) Hx of coronary artery bypass graft: Status: Chronic (5) H/O: lung cancer: Status: Acute (6) CAD (coronary artery disease): Status: Acute (7) PAD (peripheral artery disease): Status: Acute (8) COPD (chronic obstructive pulmonary disease): Status: Chronic Assessment and Plan Assessment and Plan for All Diagnoses:: Patient likely has some degree of ongoing ileus. Given findings on CT scan and prolonged ileus concern for possible small contained anastomotic leak. Would plan for noninterventional management of this at this time. Fluid drainage likely transient spontaneous evacuation of liquefied hematoma given findings on physical exam and imaging.
--- NOTE | 2023-03-05 11:30 | EXP.ACUTE.PN ---
Subjective *Date: 03/05/23 *Time: 11:33 Interval history: Ambulating around the halls, stable on room air. Passing flatus. No bowel movement yet. No nausea or vomiting. Tolerating regular diet. Afebrile. Medical Exam Vital signs and Labs for Last 24 Hours: Vital Signs Temp Pulse Pulse Resp BP Pulse Ox O2 Del Method 03/05/23 11:10 Room Air 03/05/23 11:17 97.7 F 80 18 138/75 96 Room Air 03/05/23 08:00 90 03/05/23 09:00 Room Air 03/05/23 08:00 Room Air 03/05/23 08:00 98.0 F 83 18 147/69 H 94 L Room Air 03/05/23 04:00 97.9 F 78 18 150/88 H 92 L Room Air 03/05/23 07:00 Room Air 03/05/23 06:22 92 H 03/05/23 06:22 95 H 03/05/23 04:00 70 03/05/23 04:47 Room Air 03/05/23 03:00 Room Air 03/05/23 01:00 Room Air 03/05/23 00:00 70 03/05/23 00:00 98.3 F 66 18 130/66 95 Room Air 03/04/23 23:00 Room Air 03/04/23 21:00 Room Air 03/04/23 20:00 94 L Room Air 03/04/23 20:00 80 03/04/23 21:02 78 03/04/23 21:02 77 03/04/23 20:00 98.6 F 80 18 153/82 H 94 L Room Air 03/04/23 18:54 Room Air 03/04/23 16:00 65 03/04/23 17:00 Room Air 03/04/23 15:49 97.8 F 79 16 151/64 H 95 Room Air 03/04/23 15:00 Room Air 03/04/23 12:00 60 03/04/23 13:00 Room Air 03/04/23 11:34 97.6 F 62 16 107/44 L 94 L Room Air Intake and Output 03/04/23 03/05/23 03/05/23 23:59 07:59 15:59 Intake Total 270 / 1190 240 / 240 Output Total 0 / 800 0 / 0 Balance 270 / 390 0 / 240 240 / 240 Intake: Intake, Oral Amount 270 / 990 240 / 240 Output: Output, Urine Amount 0 / 800 0 / 0 Other: Number of Voids 0 Number of Unmeasured Voids 1 Weight 78.67 kg Patient Weight 03/05/23 23:59 Weight 78.67 kg I & O for Labs for Last 24 Hours: Intake & Output 03/02/23 03/03/23 03/04/23 03/05/23 23:59 23:59 23:59 23:59 Intake Total 950 / 950 1730 / 1730 1190 / 1190 240 / 240 Output Total 1575 / 1575 600 / 800 800 / 800 0 / 0 Balance -625 / -625 1130 / 930 390 / 390 240 / 240 Weight 77.655 kg 77.292 kg 77.337 kg 78.67 kg Constitutional: Present no acute distress and average body habitus Head: Present atraumatic and normocephalic ENT: Present normal exam Respiratory: Present wheezes and normal respiratory effort; Absent rhonchi or crackles Cardiac: Present Reg Rate and Rhythm GI: Present soft and normal bowel sounds; Absent distention or tenderness Extremities: Present normal inspection and full ROM Skin: Present intact; Absent erythema Neuro: Present Grossly Intact, alert, awake, oriented x 3 and moves all extremities Assessment and Plan *Assessment and plan (1) Postoperative ileus: Status: Acute Category: Medical Code(s): K91.89 - Other postprocedural complications and disorders of digestive system; K56.7 - Ileus, unspecified (2) S/P right hemicolectomy: Status: Acute Category: Surgical Code(s): Z90.49 - Acquired absence of other specified parts of digestive tract (3) Ischemic colitis: Status: Acute Category: Medical Code(s): K55.9 - Vascular disorder of intestine, unspecified (4) Hx of coronary artery bypass graft: Status: Chronic Category: Surgical Code(s): Z95.1 - Presence of aortocoronary bypass graft (5) H/O: lung cancer: Status: Acute Category: Medical Code(s): Z85.118 - Personal history of other malignant neoplasm of bronchus and lung (6) CAD (coronary artery disease): Status: Acute Qualifiers: Coronary Disease-Associated Artery/Lesion type: bypass graft [place] vs. transplanted heart: [place] heart Associated angina: without angina Qualified Code(s): I25.810 - Atherosclerosis of coronary artery bypass graft(s) without angina pectoris Category: Medical Code(s): I25.10 - [place]
--- NOTE | 2023-03-05 15:10 | EXP.SURG.PN ---
Subjective Narrative: Came by to see the patient after lunch. He ate a significant amount of regular diet at lunchtime. Has no nausea. However he did develop some significant abdominal distention. He states that he is passing less gas than he had been. Exam Data for Last 24 hours Vital signs and Labs for Last 24 Hours: Temp Pulse Resp BP Pulse Ox O2 Del Method O2 Flow Rate 98.0 F 79 18 148/67 H 96 Room Air 2 03/05/23 15:09 03/05/23 15:09 03/05/23 15:09 03/05/23 15:09 03/05/23 15:09 03/05/23 15:09 03/03/23 19:50 I & O for Last 24 hours: Intake & Output 03/03/23 03/04/23 03/05/23 03/06/23 11:59 11:59 11:59 11:59 Intake Total 1020 / 1020 1850 / 1850 870 / 870 480 / 480 Output Total 1775 / 1775 1200 / 1200 0 / 0 Balance -755 / -755 650 / 650 870 / 870 480 / 480 Weight 170 lb 6.4 oz 170 lb 8 oz 173 lb 7 oz *Routine Abdominal Exam Abdominal: Present distended Progress Note: A&P Assessment and plan (1) Postoperative ileus: Status: Acute Assessment and plan: Probable prolonged postoperative ileus. However, given the prolonged nature I will plan to make him n.p.o. after midnight tonight for consideration of contrast imaging such as either Gastrografin enema or oral contrast CT scan. (2) S/P right hemicolectomy: Status: Acute (3) Ischemic colitis: Status: Acute (4) Hx of coronary artery bypass graft: Status: Chronic (5) H/O: lung cancer: Status: Acute (6) CAD (coronary artery disease): Status: Acute (7) PAD (peripheral artery disease): Status: Acute (8) COPD (chronic obstructive pulmonary disease): Status: Chronic
--- NOTE | 2023-03-05 18:39 | PC.NURSE ---
A&OX4. PT HAS TOLERATED RA WELL THROUGHOUT SHIFT. RESPIRATIONS REGULAR AND UNLABORED. LUNG SOUNDS BILATERALLY CLEAR. NO COUGH NOTED. +3 PITTING EDEMA NOTED TO RLE. +2 PITTING EDEMA NOTED TO LLE. INSTRUCTED PT TO ELEVATE FEET MUCH POSSIBLE HE HAS KEPT THEM DOWN MOST OF THE SHIFT. PAIN REPORTED TWICE THIS SHIFT. PAIN MEDS ADMINISTERED PER MAR. ON REASSESSMENT, PAIN WAS TOLERABLE. SOFT, TENDER, DISTENDED ABDOMEN WITH HYPOACTIVE BOWEL SOUNDS NOTED. PT REPORTS PASSING FLATUS BUT NO BM YET. VOIDS PER URINAL AND BATHROOM INDEPENDENTLY WITH CLEAR YELLOW URINE NOTED. HAND STEVEDORING SUPERINTENDENT EQUAL. +2 PULSES NOTED THROUGHOUT. HAS REMAINED AT BEDSIDE THROUGHOUT SHIFT. DRESSING NOTED TO MIDLINE OF ABDOMEN. CDI. DRESSING CHANGED TODAY. UPPER PORTION OF INCISION IS INFLAMMED AND RED. BOTTOM PART OF INCISION LOOKS GOOD. MIDLINE IV NOTED TO L UPPER ARM. DRESSING CHANGED TODAY. PT RECEIVED SHOWER TODAY AND TOLERATED WELL. PT HAS AMBULATED SEVERAL TIMES IN HIS ROOM AND IN THE HALLWAY THIS SHIFT. BED IN LOWEST POSITION. CALL LIGHT WITHIN REACH. VSS. PT HAS USED INCENTIVE SPIROMETER 10 TIMES EVERY HOUR WHILE AWAKE.
[2023-03-06] VITALS (7 sets, daily range): BP systolic 121–188; BP diastolic 60–82; PULSE 70–100; RESP 16–18; TEMP 36.6–37.1; O2SAT 93–96; BMI 27.3
--- NOTE | 2023-03-06 05:45 | PC.NURSE ---
Patient left floor with x-ray at this time.
--- NOTE | 2023-03-06 05:57 | PC.NURSE ---
Patient arrived back to floor from x-ray at this time.
--- NOTE | 2023-03-06 06:00 | XR_ITS ---
PROCEDURE INFORMATION: Exam: XR Complete Acute Abdomen Series Including Chest Exam date and time: 03/06/2023 5:37 AM Age: 77 years old Clinical indication: Other: Distension; Additional info: Abdominal distension TECHNIQUE: Imaging protocol: Radiologic exam. Complete acute abdomen series, including 2 or more views of the abdomen and a single view chest. COMPARISON: CT ABDOMEN WO CON 03/04/2023 8:29 AM FINDINGS: Tubes, catheters and devices: Lungs: The lungs are mildly hyperinflated, no consolidation. Pleural spaces: Normal. No pleural effusions. No pneumothorax. Heart/Mediastinum: Post operative changes of CABG. Gastrointestinal tract: Mild gaseous distention of small bowel loops in the left abdomen. Intraperitoneal space: Numerous anastomotic clips throughout the upper abdomen. Vasculature: The aorta demonstrates moderate atherosclerotic calcification. Bilateral hilar prominence appears vascular. Bilateral iliac artery stents. Bones/joints: Median sternotomy wires are present. Degenerative changes of the spine. There is a mild scoliosis. Soft tissues: Surgical clips right inguinal region. Surgical changes with multiple midline surgical clips. IMPRESSION: Nonspecific bowel gas pattern, appearance suggesting postoperative ileus.
[2023-03-06 06:08] LABS: Basophils % 0.2 % (0.1-2.0); Eosinophils # 0.5 K/mm3 (0.0-0.4); Eosinophils % 6.7 % (0.1-12.0); Hematocrit 28.3 % (42.0-52.0); Hemoglobin 9.3 g/dL (14.1-18.0); Lymphocytes # 0.6 K/mm3 (0.7-4.5); Lymphocytes % 8.6 % (10-50); Mean Corpuscular HGB Conc 32.9 g/dL (31.8-35.4); Mean Corpuscular Hemoglobin 27.1 pg (27.0-31.2); Mean Corpuscular Volume 82.3 fl (80-94); Mean Platelet Volume 7.9 fl (7.4-10.4); Monocytes # 0.5 K/mm3 (0.1-1.0); Monocytes % 6.1 % (1.7-9.3); Neutrophils # 5.8 K/mm3 (1.8-7.8); Neutrophils % 78.4 % (37.0-80.0); Platelet Count 264 K/mm3 (142-424); Red Blood Count 3.44 M/mm3 (4.60-6.20); White Blood Count 7.4 K/mm3 (4.8-10.8)
[2023-03-06 06:39] LABS: Anion Gap 10.6 mEq/L (5-15); Blood Urea Nitrogen 13 mg/dl (9-20); Calcium 8.1 mg/dl (8.4-10.2); Carbon Dioxide 29 mmol/L (22.0-30.0); Chloride 99 mmol/L (98-107); Creatinine Clearance Estimated 69 mL/min (50-200); Estimated Glomerular Filt Rate 110 ml/min (>60); GFR (African American) 133 ML/MIN (>60); Glucose 101 mg/dl (74-100); Magnesium 1.5 mg/dl (1.6-2.3); Potassium 3.6 mmoL/L (3.5-5.1); Sodium 135 mmol/L (136-145)
--- NOTE | 2023-03-06 07:35 | EXP.ACUTE.PN ---
Subjective *Date: 03/06/23 *Time: 12:10 Interval history: No nausea or vomiting overnight. Patient does complain of some increased minor distention of his belly. Still no bowel movement. Tolerating room air. Tolerating p.o. intake. Afebrile and hemodynamically stable Medical Exam Vital signs and Labs for Last 24 Hours: Vital Signs Temp Pulse Pulse Resp BP Pulse Ox O2 Del Method 03/05/23 20:00 Room Air 03/06/23 05:00 Room Air 03/06/23 03:00 Room Air 03/05/23 23:00 Room Air 03/05/23 21:00 Room Air 03/06/23 04:00 80 03/06/23 04:00 97.8 F 78 16 145/74 H 96 Room Air 03/06/23 00:00 90 03/06/23 00:00 97.8 F 84 18 188/80 H 94 L Room Air 03/05/23 20:00 90 03/05/23 20:00 98.6 F 80 18 158/71 H 95 Room Air 03/05/23 18:37 Room Air 03/05/23 17:15 Room Air 03/05/23 16:00 80 03/05/23 15:00 Room Air 03/05/23 15:09 98.0 F 79 18 148/67 H 96 Room Air 03/05/23 13:10 Room Air 03/05/23 12:00 70 03/05/23 11:10 Room Air 03/05/23 11:17 97.7 F 80 18 138/75 96 Room Air 03/05/23 08:00 90 03/05/23 09:00 Room Air 03/05/23 08:00 Room Air 03/05/23 08:00 98.0 F 83 18 147/69 H 94 L Room Air Intake and Output 03/05/23 03/05/23 03/06/23 15:59 23:59 07:59 Intake Total 720 / 1260 540 / 1260 Output Total 225 / 225 225 / 225 Balance 720 / 1035 315 / 1035 -225 / -225 Intake: Intake, Oral Amount 720 / 960 240 / 960 Intake, Total IV Amount 300 / 300 Cefepime HCl 2 gm In 0.9 % 100 / 100 Sodium Chloride 100 ml @ 200 mls/hr IV Q12H [facility] Rx#:[id number] Metronidaz/Sod Chl 500 mg In 200 / 200 100 ml @ 100 mls/hr IV Q8H [facility] Rx#:[id number] Output: Output, Urine Amount 225 / 225 225 / 225 Other: Number of Unmeasured Voids 1 1 Weight 77.383 kg Patient Weight 03/06/23 23:59 Weight 77.383 kg Laboratory Results - last 24 hr 03/06/23 05:38: WBC 7.4, RBC 3.44 L, Hgb 9.3 L, Hct 28.3 L, MCV 82.3, MCH 27.1, MCHC 32.9, RDW 19.0 H, Plt Count 264, MPV 7.9, Neut % (Auto) 78.4, Lymph % (Auto) 8.6 L, [place] % (Auto) 6.1, Eos % (Auto) 6.7, Baso % (Auto) 0.2, Neut # (Auto) 5.8, Lymph # (Auto) 0.6 L, [place] # (Auto) 0.5, Eos # (Auto) 0.5 H, Baso # (Auto) 0.0, Sodium 135 L, Potassium 3.6, Chloride 99, Carbon Dioxide 29, Anion Gap 10.6, BUN 13, Creatinine 0.70, Estimated Creat Clear 69, Estimated GFR 110, Est GFR ( Amer) 133, Glucose 101 H, Calcium 8.1 L, Magnesium 1.5 L I & O for Labs for Last 24 Hours: Intake & Output 03/03/23 03/04/23 03/05/23 03/06/23 23:59 23:59 23:59 23:59 Intake Total 1730 / 1730 1190 / 1190 1260 / 1260 Output Total 600 / 800 800 / 800 225 / 225 225 / 225 Balance 1130 / 930 390 / 390 1035 / 1035 -225 / -225 Weight 77.292 kg 77.337 kg 78.67 kg 77.383 kg Constitutional: Present no acute distress and average body habitus Head: Present atraumatic and normocephalic ENT: Present normal exam Respiratory: Present wheezes and normal respiratory effort; Absent rhonchi or crackles Cardiac: Present Reg Rate and Rhythm GI: Present soft, tenderness (Minor, nonfocal. Surgical incisions appear healthy) and normal bowel sounds; Absent distention Extremities: Present normal inspection and full ROM Skin: Present intact; Absent erythema Neuro: Present Grossly Intact, alert, awake, oriented x 3 and moves all extremities Assessment and Plan *Assessment and plan (1) Postoperative ileus: Status: Acute Category: Medical Code(s): K91.89 - Other postprocedural complications and disorders of digestive system; K56.7 - Ileus, unspecified (2) S/P right hemicolectomy: Status: Acute Category: Surgical Code(s): Z90.49 - Acquired absence of other specified parts of digestive tract (3) Ischemic colitis: Status: Acute Category: Medical Code(s): K55.9 - Vascular disorder of intest
--- NOTE | 2023-03-06 07:50 | FL_ITS ---
FINAL REPORT CLINICAL HISTORY: Fluoro time: 2.48, DAP: 3607.94 S/P Right colon resection. R/o Leak/obstruction 240ml Gastrographin used FINDINGS: GASTROGRAFIN ENEMA. HISTORY: Recent partial colon resection with abnormal CT. Pneumoperitoneum. Constipation. PROCEDURE: The patient was catheterized the usual fashion per rectum. Gastrografin was introduced in a retrograde fashion. 28 spot andoverhead films were obtained. FINDINGS: [employer] Judge film is unremarkable. Examination is limited secondary to a large amount of stool throughout the colon as well as a redundant colon. The anastomosis in the right abdomen is patent. No obvious extravasation of contrast was demonstrated during the exam. No constricting lesion is identified. Fluoro time: 2 minutes 48 seconds DAP: 3607.94 uGy.m2 IMPRESSION: Extensive stool throughout the colon without obvious leak identified. If clinical concerns persist for small leak, consider CT of the abdomen and pelvis with rectal contrast. Films reviewed , interpreted and dictated by Dr. Roldan. Transcribed by Дмитрий Eastman PA-C. Reviewed, Interpreted and Dictated by Karri Roldan III, MD Transcribed by KIMBERLYN Ron Authenticated and [facility]
--- NOTE | 2023-03-06 08:03 | EXP.SURG.PN ---
Subjective Narrative: Patient ate significant amount of dinner yesterday evening. He had some pain. This acutely resolved when he was transported to x-ray. He denies any nausea. Passing some gas but not a significant amount. No bowel movement. Exam Data for Last 24 hours Vital signs and Labs for Last 24 Hours: Temp Pulse Resp BP Pulse Ox O2 Del Method O2 Flow Rate 97.9 F 80 17 140/60 93 L Room Air 2 03/06/23 07:37 03/06/23 07:37 03/06/23 07:37 03/06/23 07:37 03/06/23 07:37 03/06/23 07:37 03/03/23 19:50 Laboratory Results - last 24 hr 03/06/23 05:38: WBC 7.4, RBC 3.44 L, Hgb 9.3 L, Hct 28.3 L, MCV 82.3, MCH 27.1, MCHC 32.9, RDW 19.0 H, Plt Count 264, MPV 7.9, Neut % (Auto) 78.4, Lymph % (Auto) 8.6 L, [place] % (Auto) 6.1, Eos % (Auto) 6.7, Baso % (Auto) 0.2, Neut # (Auto) 5.8, Lymph # (Auto) 0.6 L, [place] # (Auto) 0.5, Eos # (Auto) 0.5 H, Baso # (Auto) 0.0, Sodium 135 L, Potassium 3.6, Chloride 99, Carbon Dioxide 29, Anion Gap 10.6, BUN 13, Creatinine 0.70, Estimated Creat Clear 69, Estimated GFR 110, Est GFR ( Amer) 133, Glucose 101 H, Calcium 8.1 L, Magnesium 1.5 L I & O for Last 24 hours: Intake & Output 03/03/23 03/04/23 03/05/23 03/06/23 11:59 11:59 11:59 11:59 Intake Total 1020 / 1020 1850 / 1850 870 / 870 1020 / 1020 Output Total 1775 / 1775 1200 / 1200 0 / 0 450 / 450 Balance -755 / -755 650 / 650 870 / 870 570 / 570 Weight 170 lb 6.4 oz 170 lb 8 oz 173 lb 7 oz 170 lb 9.6 oz *Routine Abdominal Exam Abdominal: Present distended Progress Note: A&P Assessment and plan (1) Postoperative ileus: Status: Acute Assessment and plan: Patient has prolonged ileus versus possible early postoperative obstruction. I will see if he can undergo Gastrografin enema for diagnostic and possibly therapeutic purposes on distal pathology and the remaining colon at the anastomosis. This may be therapeutic as well. If it is not diagnostic may follow this up with a CT scan with added oral contrast as a triple contrast CT scan. Hopefully does not need repeat laparotomy. (2) S/P right hemicolectomy: Status: Acute (3) Ischemic colitis: Status: Acute (4) Hx of coronary artery bypass graft: Status: Chronic (5) H/O: lung cancer: Status: Acute (6) CAD (coronary artery disease): Status: Acute (7) PAD (peripheral artery disease): Status: Acute (8) COPD (chronic obstructive pulmonary disease): Status: Chronic
--- NOTE | 2023-03-06 11:07 | DIET.NUTRFU ---
Patient ate a good dinner, NPO again this AM for Gastroenteritis enema. Still waiting on BM. sips cand chips will be started when return to unit. Patient will benefit from supplements when appropriate.
--- NOTE | 2023-03-06 12:01 | CT_ITS ---
FINAL REPORT TECHNIQUE: Postcontrast axial images through the abdomen and pelvis were performed. This study was performed with techniques to keep radiation doses as low as reasonably achievable, (ALARA). Individualized dose reduction techniques using automated exposure control or adjustment of mA and/or kV according to the patient's size were employed. CLINICAL HISTORY: ABDOMINAL PAIN, OBSTIPATION COMPARISON: February 25, 2023 FINDINGS: Abdomen: There is a small left pleural effusion. There is left basilar atelectasis or scarring. There are small hepatic cysts. There is mild gallbladder wall thickening. The spleen is unremarkable. The adrenals are normal. The pancreas is unremarkable. Renal cysts are noted. The aorta is normal in caliber. There is diffuse vascular calcification. No free fluid or adenopathy is identified. No findings for mechanical bowel obstruction are identified. There are postoperative changes in the anterior abdomen pelvis with a small amount of air in the abdomen wall. Pelvis: There has been interval postoperative change in the right side of the pelvis. There is a focus of air and fluid measuring 32 x 17 mm that may resent a postoperative seroma or hematoma. Early abscess cannot be excluded. There is diverticulosis of the sigmoid colon. There are bilateral fat-containing inguinal hernias. There is postoperative change in the right inguinal region. IMPRESSION: Interval postoperative change in the right side of the pelvis with an adjacent focus of air and fluid measuring up to 32 mm. Findings may reflect postoperative seroma or hematoma but early abscess cannot be excluded. Follow-up CT may be helpful. Reviewed, Interpreted and Dictated by Karri Roldan III, MD Transcribed by Mitchel Payne Authenticated and [facility]
--- NOTE | 2023-03-06 16:18 | PC.NURSE ---
Pt alert&oriented x4, pt has complained of pain this shift 2 times, medicated per MAR. Pt has went off the floor with radiology twice this shift for testing via wheelchair. Pt has had no other complaints. Dressing to abdomen changed with serosanguineous drainage noted, 4x4, ABD pad, and tape applied, middle of incision is red. Dressing changed to right foot under supervision, completed per request by patient. Pt has had 2 large BM this shift, passing gas. Pt abdomen soft and tender. Bowel sounds active from previous assessment. Midline IV to left upper arm intact and clean. Pt has ambulated to and from bathroom independently throughout shift. Pt has been NPO through shift.
[2023-03-07] VITALS: BP 125/67; PULSE 70; PULSE 80; RESP 17; TEMP 36.7; O2SAT 95
[2023-03-07 04:00] VITALS: BP 129/62; PULSE 70; PULSE 91; RESP 17; TEMP 37; O2SAT 91; BMI 27.5
[2023-03-07 06:24] LABS: Basophils % 0.4 % (0.1-2.0); Eosinophils # 0.4 K/mm3 (0.0-0.4); Eosinophils % 6.1 % (0.1-12.0); Hematocrit 29.5 % (42.0-52.0); Hemoglobin 9.5 g/dL (14.1-18.0); Lymphocytes # 0.7 K/mm3 (0.7-4.5); Lymphocytes % 11.6 % (10-50); Mean Corpuscular HGB Conc 32.2 g/dL (31.8-35.4); Mean Corpuscular Hemoglobin 26.7 pg (27.0-31.2); Mean Corpuscular Volume 82.9 fl (80-94); Mean Platelet Volume 8.2 fl (7.4-10.4); Monocytes # 0.4 K/mm3 (0.1-1.0); Monocytes % 6.8 % (1.7-9.3); Neutrophils # 4.7 K/mm3 (1.8-7.8); Platelet Count 273 K/mm3 (142-424); Red Blood Count 3.56 M/mm3 (4.60-6.20); Red Cell Distribution Width 19.1 % (11.5-17.5); White Blood Count 6.2 K/mm3 (4.8-10.8)
[2023-03-07 06:34] LABS: Alanine Aminotransferase 21 U/L (12-78); Albumin Level 3.3 g/dl (3.5-5.0); Albumin/Globulin Ratio 1.1 (1.1-1.8); Alkaline Phosphatase 83 U/L (38-126); Anion Gap 10.2 mEq/L (5-15); Aspartate Amino Transferase 28 U/L (17-59); Bilirubin,Total 0.5 mg/dl (0.2-1.3); Blood Urea Nitrogen 11 mg/dl (9-20); Carbon Dioxide 28 mmol/L (22.0-30.0); Chloride 98 mmol/L (98-107); Creatinine Clearance Estimated 69 mL/min (50-200); Estimated Glomerular Filt Rate 110 ml/min (>60); GFR (African American) 133 ML/MIN (>60); Glucose 85 mg/dl (74-100); Magnesium 1.7 mg/dl (1.6-2.3); Potassium 3.2 mmoL/L (3.5-5.1); Sodium 133 mmol/L (136-145); Total Protein,Serum 6.3 g/dl (6.3-8.2)
[2023-03-07 08:00] VITALS: BP 167/73; PULSE 70; PULSE 78; RESP 18; TEMP 36.6; O2SAT 93
--- NOTE | 2023-03-07 08:31 | EXP.SURG.PN ---
Subjective Patient reports: no new complaints Narrative: The patient states that he feels fine and is requesting discharge home. Exam Data for Last 24 hours Vital signs and Labs for Last 24 Hours: Temp Pulse Resp BP Pulse Ox O2 Del Method O2 Flow Rate 98.6 F 91 H 17 129/62 91 L Room Air 2 03/07/23 04:00 03/07/23 04:00 03/07/23 04:00 03/07/23 04:00 03/07/23 04:00 03/07/23 05:00 03/03/23 19:50 Laboratory Results - last 24 hr 03/07/23 05:43: WBC 6.2, RBC 3.56 L, Hgb 9.5 L, Hct 29.5 L, MCV 82.9, MCH 26.7 L, MCHC 32.2, RDW 19.1 H, Plt Count 273, MPV 8.2, Neut % (Auto) 75.0, Lymph % (Auto) 11.6, [place] % (Auto) 6.8, Eos % (Auto) 6.1, Baso % (Auto) 0.4, Neut # (Auto) 4.7, Lymph # (Auto) 0.7, [place] # (Auto) 0.4, Eos # (Auto) 0.4, Baso # (Auto) 0.0, Sodium 133 L, Potassium 3.2 L, Chloride 98, Carbon Dioxide 28, Anion Gap 10.2, BUN 11, Creatinine 0.70, Estimated Creat Clear 69, Estimated GFR 110, Est GFR ( Amer) 133, Glucose 85, Calcium 8.0 L, Magnesium 1.7 D, Total Bilirubin 0.5, AST 28 D, ALT 21, Alkaline Phosphatase 83, Total Protein 6.3, Albumin 3.3 L, Globulin 3.0, Albumin/Globulin Ratio 1.1 I & O for Last 24 hours: Intake & Output 03/04/23 03/05/23 03/06/23 03/07/23 11:59 11:59 11:59 11:59 Intake Total 1850 / 1850 870 / 870 1020 / 1020 300 / 300 Output Total 1200 / 1200 0 / 0 450 / 450 0 / 0 Balance 650 / 650 870 / 870 570 / 570 300 / 300 Weight 170 lb 8 oz 173 lb 7 oz 170 lb 9.6 oz 171 lb 4.434 oz Radiology Reports for the Last 24 Hours: CT scan dated March 06, 2023-IMPRESSION: Interval postoperative change in the right side of the pelvis with an adjacent focus of air and fluid measuring up to 32 mm. Findings may reflect postoperative seroma or hematoma but early abscess cannot be excluded. Follow-up CT may be helpful. Constitutional Constitutional: no acute distress *Routine Respiratory Exam Respiratory: Absent respiratory distress *Routine Cardiovascular Exam Cardiovascular: Absent tachycardia *Routine Abdominal Exam Abdominal: Present soft Comments: [place] intact. Mild inflammatory blush with minimal seepage of fluid noted at superior margin of incision. Progress Note: A&P Assessment and plan (1) Postoperative ileus: Status: Acute Assessment and plan: Essentially resolved (2) S/P right hemicolectomy: Status: Acute Assessment and plan: Small focus of fluid/air in right pelvis noted on yesterday's CT most likely postoperative in nature. Decision on interval CT scan in the outpatient setting pending patient's symptomatology/'s physical exam findings. (3) Ischemic colitis: Status: Acute
--- NOTE | 2023-03-07 08:35 | EXP.DC.SUM ---
General Admission date:: 02/25/23 Discharge date: 03/07/23 HPI HPI HPI: Mr. Alonso is a 77-year-old male with history of hypertension, hyperlipidemia, PAD, CAD status post CABG, COPD presenting with abdominal pain. States the pain began night before admission. Took some Tylenol with improvement in his pain and ability to sleep. However woke early in the morning with acute worsening. Progressed from a 4 out of 10 to a 7 out of 10. Did not radiate. Poor p.o. intake due to pain. No diarrhea but was having some nausea. Came to the ER for further evaluation because of the character and onset of the his pain. Denies any fever or chills. On evaluation in the ER, found to have inflammatory changes encompassing the cecum and proximal ascending colon. Concern for possible perforation, infection, underlying malignancy. Surgery was consulted and patient was taken urgently to the ER for evaluation. Partial colectomy of the cecum performed. Admitted to surgery after procedure. Medicine consulted for comanagement of patient. On my evaluation this morning, patient has pain but it is somewhat improving. States it gets to burning at times and the BIRD RAISER pump does help. No nausea or vomiting. No flatus as of yet. Afebrile overnight. Sitting on bedside. Hospital Course Hospital Course Hospital Course: Patient is a 77-year-old male with a history of hypertension hyperlipidemia, CAD status post CABG who presents to the hospital due to abdominal distention, abdominal pain. Medicine has been consulted for medical management. Status post partial colectomy with end-to-end anastomosis on 02/25. Patient has been slow to resume normal bowel function. At this point he is tolerating p.o. intake, having bowel movements. Stable to discharge home. Will have close follow-up with surgery. Problems addressed as follows: Abdominal pain, status post hemicolectomy Postoperative ileus -Patient presented with abdominal pain, imaging identified perforated cecum concern for ischemic colitis. Taken for surgery with identification of ischemic right colon with microperforation. Exploratory laparotomy performed with right hemicolectomy. [id number] anastomosis created. Patient had slow resolution of bowel function. Was monitored for extensive period of time due to slow progression. Multiple images showed development of hematoma or seroma near surgical site but no concern for infection. Treated empirically with course of antibiotics for 7 days. Tolerating advancement in diet and finally having bowel movements over the last 24 hours prior to discharge home. Plan for close follow-up with surgery. No signs of dehiscence or anastomotic leak on serial images. A-fib CAD/PAD Heart failure with reduced ejection fraction Hypertension Patient developed uncontrolled A-fib during admission. Cardiology was consulted. Adjustments were made to his regimen. He has been controlled in sinus rhythm with an increase in metoprolol. Will transition back to extended release metoprolol at discharge. Continue Jardiance 10 mg daily, Plavix 75 mg daily, Xarelto 20 mg daily, Entresto 24/26 mg twice daily, spironolactone 25 mg daily, and metoprolol COPD: Continue inhalers per home regimen. Stable on RA during admission. Stable for discharge home. Tolerating diet. Having bowel movements. Spent 30 minutes in discharge counseling, discussion with subspecialists, documentation, chart review, and direct care with patient. Exam Data for Last 24 hours Vital signs and Labs for Last 24 Hours: Temp Pulse Resp BP Pulse Ox O2 Del Method O2 Flow Rate 98.6 F 91 H 17 129/62 91 L Room Air 2 03/07/23 04:00 03/07/23 04:00 03/07/23 04:00 03/07/23 04:00 03/07/23 04:00 03/07/23 05:00 03/03/23 19:50 Laboratory Results - last 24 hr 03/07/23 05:43: WBC 6.2, RBC 3.56 L, Hgb 9.5 L, Hct 29.5 L, MCV 82.9, MCH 26.7 L, MCHC 32.2, RDW 19.1 H, Plt Count 273, MPV 8.2, Neut % (Auto) 75.0, Lymph
--- NOTE | 2023-03-09 14:20 | CARE MANAGER ---
Contacted patient's related to hospital discharge. She states he is doing well. She is aware of follow up appointments and is changing his dressing as instructed. JYOTI Main
== END 2023-03-07 13:54 | disposition home or self-care (01) | DRG 329 ==
LOC: ER 13:49 → 2ND 16:00
PROVIDERS: Internal Medicine; Student in an Organized Health Care Education/Training Program; Surgery; Admitting Provider Internal Medicine Adolescent Medicine; Emergency Provider Emergency Medicine; PCP Internal Medicine Adolescent Medicine; Visit Provider Internal Medicine Adolescent Medicine
PROC: 0DTF0ZZ Resection of Right Large Intestine, Open Approach (ICD-10-PCS; CPT 49000; principal; 2023-02-25 14:30)
DX: K55.9 Vascular disorder of intestine, unspecified (principal); K63.1 Perforation of intestine (nontraumatic); K91.89 Other postprocedural complications and disorders of digestive system; K56.7 Ileus, unspecified; I50.20 Unspecified systolic (congestive) heart failure; L76.32 Postprocedural hematoma of skin and subcutaneous tissue following other procedure; L76.34 Postprocedural seroma of skin and subcutaneous tissue following other procedure; I73.9 Peripheral vascular disease, unspecified; I25.10 Atherosclerotic heart disease of native coronary artery without angina pectoris; J44.9 Chronic obstructive pulmonary disease, unspecified; Z85.118 Personal history of other malignant neoplasm of bronchus and lung; Z79.82 Long term (current) use of aspirin; E78.5 Hyperlipidemia, unspecified; Z95.1 Presence of aortocoronary bypass graft; I48.0 Paroxysmal atrial fibrillation; I65.23 Occlusion and stenosis of bilateral carotid arteries; I34.0 Nonrheumatic mitral (valve) insufficiency; I11.0 Hypertensive heart disease with heart failure; Y84.8 Other medical procedures as the cause of abnormal reaction of the patient, or of later complication, without mention of misadventure at the time of the procedure
CPT/HCPCS: 44140; 36410; 36415; 71045; 74018; 74021; 74150; 74177; 74270; 80048; 80053; 81001; 83690; 83735; 84484; 85007; 85025; 87636; 88307; 93005; 93306; 94640; 96374; 97110; 97116; 97163; 97530; 99291; J2405; Q9967

== ENCOUNTER → 2023-03-15 08:01 | Outpatient (CLI) | payer MEDICARE, OTHER, SELFPAY ==
--- NOTE | 2023-03-15 08:01 | NM_ITS ---
APPROVED REPORT Exam: Nuclear Stress Test Indication: DYSRHYTHMIA, HTN, HYPERLIPIDEMIA, A-FIB, SOB,PALPITATIONS Patient Location: Outpatient Stress Tech: Ashleigh Murrieta DC Tech:TUNDE Stanley RT (R)(N)(M) Ht: 5 ft 6 in Wt: 145 lbs HR: 65 bpm BP: 167/49 mmHg BSA: 1.74 m2 Rhythm: NSR, frequent PVCs TID: 1.08 BMI: 23.4 History: DYSRHYTHMIA, HTN, HYPERLIPIDEMIA, A-FIB, SOB,PALPITATIONS S/P COLON SURGERY, PT COULD NOT LAY PRONE Procedure: Patient received 0.4 mg of intravenous Lexiscan, resting heart rate 65 bpm, resting blood pressure 167/49 mmHg, with Lexiscan maximum heart rate achieved was 76 bpm which is % of the maximum predicted heart rate and blood pressure was 91/47 mmHg. With Lexiscan, patient denied any complaint of chest pain. Cardiac Stress and Resting SPECT Images: Cardiac Stress and Resting SPECT images were obtained using technetium 99m Myoview 31.4 mCi stress and 10.55 mCi at rest. The patient could not lie on his abdomen. Therefore, prone stress imaging could not be performed. Resting and stress imaging in supine position demonstrate a large sized, severe, fixed perfusion defect in the inferior and inferoseptal LV arenas. Gated imaging demonstrates moderate reduction in global LV systolic function. There is severe hypokinesis of the basal inferior and inferoseptal LV arenas. LVEF is calculated at 37%. However, the LVEF may be inaccurate in the setting of frequent PVCs. Conclusion: Large sized, severe, fixed perfusion defect in the inferior and inferoseptal LV arenas. No evidence of reversible ischemia. Gated imaging demonstrates moderate reduction in global LV systolic function. There is severe hypokinesis of the basal inferior and inferoseptal LV arenas. LVEF is calculated at 37%. However, the LVEF may be inaccurate in the setting of frequent PVCs. Of note, the patient had frequent PVCs at baseline and after administration of Lexiscan. Electronically signed by : Manisha Gonzalez MD 03/18/2023 23:45:04
--- NOTE | 2023-03-15 09:31 | CA_ITS ---
APPROVED REPORT Exam: Pharmacologic Technologist: Ashleigh Moore, Ht: 5 ft 6 in Wt: 147 lbs BSA: 1.75 m2 HR: 65 bpm BP: 167/49 mmHg Rhythm: NSR, PVCs Medical History Medications: Pantoprazole,,,,, Atorvastatin,,,,, Flonase,,,,, FOLIC ACID,,,,, Albuterol,,,,, SpirOnolactone,,,,, Mirtazapine,,,,, DOcusate Sodium,,,,, RIvaROXABAN,,,,, EnTRESTO,,,,, MonteKULAST,,,,, Metoprolol Succinate ER,,,,, Stress Test Details Test: LEXISCAN Reason for pharmacologic stress test: physical limitation. HR Resting HR: 73 bpm Max Heart Rate (APMHR): 144 bpm Max HR Achieved: 88 bpm Target HR (85% APMHR): 122 bpm % of APMHR: 61 Recovery HR: 80 bpm BP Resting BP: 167.0/49.0 mmHg Max BP: 167.0/49.0 mmHg Recovery BP: 129.0/59.0 mmHg ECG Resting ECG: NSR, frequent PVCs, borderline IVCD Stress ECG: No significant ST changes Arrhythmia: Frequent PVCs, 1 ventricular couplet Clinical Exercise duration: 04:01 min Highest Stage Achieved: Stress ECG Conclusion Symptoms: Mild SOA, chest discomfort, stomach & head discomfort. Arrhythmias/Ectopy: Frequent PVCs, [address]-T Changes: No significant ST changes Conclusion: Frequent PVCs are noted at baseline and after administration of Lexiscan. Unremarkable Lexiscan stress test. Myoview images are reported separately. Test Summary REST . . . . . . . Resting REST 03:44 . . 73 . 167/ 49 . . Stage 1 01:00 . . 80 . . . . Stage 2 01:00 . . 82 . . . . Stage 3 01:00 . . 82 . 91/ 47 . . Stage 4 01:00 . . 82 . 106/ 44 . . Stage 4 01:01 . . 82 . 106/ 44 . Stop exercise at 04:01 RECOVERY 01:00 . . 74 . 104/ 51 . . RECOVERY 02:00 . . 77 . 104/ 51 . . RECOVERY 03:00 . . 75 . 96/ 54 . . RECOVERY 03:49 . . 79 . 129/ 59 . . Electronically signed by : Manisha Gonzalez MD 03/18/2023 23:40:58
== END ==
PROVIDERS: PCP Internal Medicine Adolescent Medicine; Visit Provider Internal Medicine
DX: I25.10 Atherosclerotic heart disease of native coronary artery without angina pectoris (principal); I73.9 Peripheral vascular disease, unspecified; J44.9 Chronic obstructive pulmonary disease, unspecified; Z85.118 Personal history of other malignant neoplasm of bronchus and lung; Z95.1 Presence of aortocoronary bypass graft
CPT/HCPCS: 78452; 93017; 93018; A9502; J2785

== ENCOUNTER 2023-03-16 14:06 | Outpatient (CLI) | payer MEDICARE, OTHER, SELFPAY | END 2023-03-16 14:19 | disposition home or self-care (01) | LOC: INF 14:08 | PROVIDERS: PCP Internal Medicine Adolescent Medicine; Visit Provider Surgery | DX: S31.109D Unspecified open wound of abdominal wall, unspecified quadrant without penetration into peritoneal cavity, subsequent encounter (principal); T14.8XXA Other injury of unspecified body region, initial encounter; Z48.00 Encounter for change or removal of nonsurgical wound dressing | CPT/HCPCS: G0463 ==

== ENCOUNTER → 2023-03-17 12:08 | Outpatient (CLI) | payer MEDICARE, OTHER, SELFPAY | PROVIDERS: PCP Internal Medicine Adolescent Medicine; Visit Provider Surgery | DX: S31.109D Unspecified open wound of abdominal wall, unspecified quadrant without penetration into peritoneal cavity, subsequent encounter (principal); T14.8XXA Other injury of unspecified body region, initial encounter; Z48.00 Encounter for change or removal of nonsurgical wound dressing | CPT/HCPCS: G0463 ==

== ENCOUNTER → 2023-03-18 12:36 | Outpatient (CLI) | payer MEDICARE, OTHER, SELFPAY | PROVIDERS: PCP Internal Medicine Adolescent Medicine; Visit Provider Surgery | DX: S31.109D Unspecified open wound of abdominal wall, unspecified quadrant without penetration into peritoneal cavity, subsequent encounter (principal); T14.8XXA Other injury of unspecified body region, initial encounter; Z48.00 Encounter for change or removal of nonsurgical wound dressing | CPT/HCPCS: G0463 ==

== ENCOUNTER 2023-03-19 13:29 | Outpatient (CLI) | payer MEDICARE, OTHER, SELFPAY | END 2023-03-19 13:48 | disposition home or self-care (01) | LOC: INF 13:30 | PROVIDERS: Visit Provider Surgery | DX: S31.109D Unspecified open wound of abdominal wall, unspecified quadrant without penetration into peritoneal cavity, subsequent encounter (principal); T14.8XXA Other injury of unspecified body region, initial encounter; Z48.00 Encounter for change or removal of nonsurgical wound dressing | CPT/HCPCS: G0463 ==

== ENCOUNTER 2023-03-20 13:12 | Outpatient (CLI) | payer MEDICARE, OTHER, SELFPAY | END 2023-03-20 13:25 | disposition home or self-care (01) | LOC: INF 13:13 | PROVIDERS: PCP Internal Medicine Adolescent Medicine; Visit Provider Internal Medicine Medical Oncology | DX: S31.109D Unspecified open wound of abdominal wall, unspecified quadrant without penetration into peritoneal cavity, subsequent encounter (principal); T14.8XXA Other injury of unspecified body region, initial encounter; Z48.00 Encounter for change or removal of nonsurgical wound dressing | CPT/HCPCS: G0463 ==

== ENCOUNTER 2023-03-21 13:58 | Outpatient (CLI) | payer MEDICARE, OTHER, SELFPAY | END 2023-03-21 14:10 | disposition home or self-care (01) | LOC: INF 13:59 | PROVIDERS: Visit Provider Surgery | DX: T14.8XXA Other injury of unspecified body region, initial encounter (principal) | CPT/HCPCS: G0463 ==

== ENCOUNTER → 2023-03-22 09:10 | Outpatient (CLI) | payer MEDICARE, OTHER, SELFPAY ==
[2023-03-22 14:52] LABS: Adenovirus F 40/41, stool Not Detected (NotDetected); Astrovirus Not Detected (NotDetected); Campylobacter Not Detected (NotDetected); Cryptosporidium Not Detected (NotDetected); Cyclospora Cayetanesis Not Detected (NotDetected); Entamoeba histolytica Not Detected (NotDetected); Enteroaggregative E coli Not Detected (NotDetected); Enteropathogenic E coli Not Detected (NotDetected); Enterotoxigenic E coli Not Detected (NotDetected); Giardia lamblia Not Detected (NotDetected); Norovirus Not Detected (NotDetected); Plesimonas Shigalloides, PCR Not Detected (NotDetected); Rotavirus A Not Detected (NotDetected); Salmonella, PCR Not Detected (NotDetected); Shiga-like toxin E coli Not Detected (NotDetected); Shigella Enterovasive E coli Not Detected (NotDetected); Vibrio Cholerae Not Detected (NotDetected); Vibrio, PCR Not Detected (NotDetected); Yersinia Entercolitica, PCR Not Detected (NotDetected)
[2023-03-27 08:57] LABS: Clostridium Difficile A/B, PCR Detected (NotDetected); Sapovirus Not Detected (NotDetected)
== END ==
PROVIDERS: PCP Surgery; Visit Provider Surgery
DX: R19.7 Diarrhea, unspecified (principal); A04.72 Enterocolitis due to Clostridium difficile, not specified as recurrent
CPT/HCPCS: 87506

== ENCOUNTER 2023-03-22 11:23 | Outpatient (CLI) | payer MEDICARE, OTHER, SELFPAY ==
--- NOTE | 2023-03-22 11:42 | PC.NURSE ---
03/22/23 1135 pt presents to outpt infusion dept to have blood drawn for labs. Venipuncture performed to pts lt fa x 2 sticks using butterfly access needle and blood drawn for labs as ordered per md. Specimens sent to lab for analysis. Site secured with gauze and coban once needle was withdrawn.
[2023-03-22 11:58] LABS: Basophils % 0.5 % (0.1-2.0); Eosinophils # 0.9 K/mm3 (0.0-0.4); Hematocrit 34.4 % (42.0-52.0); Hemoglobin 10.8 g/dL (14.1-18.0); Lymphocytes # 1.2 K/mm3 (0.7-4.5); Lymphocytes % 16.5 % (10-50); Mean Corpuscular HGB Conc 31.5 g/dL (31.8-35.4); Mean Corpuscular Volume 82.4 fl (80-94); Mean Platelet Volume 7.8 fl (7.4-10.4); Monocytes # 0.7 K/mm3 (0.1-1.0); Monocytes % 9.2 % (1.7-9.3); Neutrophils # 4.4 K/mm3 (1.8-7.8); Neutrophils % 61.8 % (37.0-80.0); Platelet Count 323 K/mm3 (142-424); Red Blood Count 4.18 M/mm3 (4.60-6.20); Red Cell Distribution Width 18.1 % (11.5-17.5); White Blood Count 7.1 K/mm3 (4.8-10.8)
[2023-03-22 12:00] LABS: Chloride 103 mmol/L (98-107); Sodium 137 mmol/L (136-145)
[2023-03-22 12:01] LABS: Potassium 3.8 mmoL/L (3.5-5.1)
[2023-03-22 12:03] LABS: Alanine Aminotransferase 26 U/L (12-78); Albumin Level 4.3 g/dl (3.5-5.0); Albumin/Globulin Ratio 1.2 (1.1-1.8); Alkaline Phosphatase 93 U/L (38-126); Anion Gap 13.8 mEq/L (5-15); Aspartate Amino Transferase 32 U/L (17-59); Bilirubin,Total 0.5 mg/dl (0.2-1.3); Blood Urea Nitrogen 17 mg/dl (9-20); Carbon Dioxide 24 mmol/L (22.0-30.0); Estimated Glomerular Filt Rate 82 ml/min (>60); GFR (African American) 99 ML/MIN (>60); Globulin 3.5 g/dL (1.3-3.2); Total Protein,Serum 7.8 g/dl (6.3-8.2)
[2023-03-22 12:04] LABS: Calcium 8.9 mg/dl (8.4-10.2); Glucose 120 mg/dl (74-100)
== END 2023-03-22 11:48 | disposition home or self-care (01) ==
LOC: INF 11:24
PROVIDERS: PCP Internal Medicine Adolescent Medicine; Visit Provider Surgery
DX: R19.7 Diarrhea, unspecified (principal); I25.810 Atherosclerosis of coronary artery bypass graft(s) without angina pectoris
CPT/HCPCS: 36415; 80053; 85025

== ENCOUNTER 2023-03-23 14:01 | Outpatient (CLI) | payer MEDICARE, OTHER, SELFPAY | END 2023-03-23 14:10 | disposition home or self-care (01) | LOC: INF 14:02 | PROVIDERS: PCP Internal Medicine Adolescent Medicine; Visit Provider Surgery | DX: Z48.01 Encounter for change or removal of surgical wound dressing (principal) | CPT/HCPCS: G0463 ==

== ENCOUNTER → 2023-03-24 11:24 | Outpatient (CLI) | payer MEDICARE, OTHER, SELFPAY | PROVIDERS: PCP Internal Medicine Adolescent Medicine; Visit Provider Surgery | DX: S31.109D Unspecified open wound of abdominal wall, unspecified quadrant without penetration into peritoneal cavity, subsequent encounter (principal); T14.8XXA Other injury of unspecified body region, initial encounter; Z48.00 Encounter for change or removal of nonsurgical wound dressing | CPT/HCPCS: G0463 ==

== ENCOUNTER 2023-03-25 12:46 | Outpatient (CLI) | payer MEDICARE, OTHER, SELFPAY | END 2023-03-25 13:06 | disposition home or self-care (01) | LOC: INF 12:48 | PROVIDERS: PCP Internal Medicine Adolescent Medicine; Visit Provider Surgery | DX: S31.109D Unspecified open wound of abdominal wall, unspecified quadrant without penetration into peritoneal cavity, subsequent encounter (principal); T14.8XXA Other injury of unspecified body region, initial encounter; Z48.00 Encounter for change or removal of nonsurgical wound dressing | CPT/HCPCS: G0463 ==

== ENCOUNTER 2023-03-26 11:46 | Outpatient (CLI) | payer MEDICARE, OTHER, SELFPAY ==
[2023-03-26 11:51] VITALS: BMI 22.7
[2023-03-26 12:00] VITALS: BP 99/68; PULSE 71; RESP 18; TEMP 37.2; O2SAT 97
[2023-03-26 12:26] LABS: Basophils % 0.1 % (0.1-2.0); Eosinophils # 0.1 K/mm3 (0.0-0.4); Eosinophils % 0.4 % (0.1-12.0); Hematocrit 32.5 % (42.0-52.0); Hemoglobin 10.5 g/dL (14.1-18.0); Lymphocytes # 0.9 K/mm3 (0.7-4.5); Lymphocytes % 5.1 % (10-50); Mean Corpuscular HGB Conc 32.4 g/dL (31.8-35.4); Mean Corpuscular Hemoglobin 26.3 pg (27.0-31.2); Mean Corpuscular Volume 81.2 fl (80-94); Mean Platelet Volume 8.3 fl (7.4-10.4); Monocytes # 0.8 K/mm3 (0.1-1.0); Monocytes % 4.7 % (1.7-9.3); Neutrophils # 15.9 K/mm3 (1.8-7.8); Neutrophils % 89.6 % (37.0-80.0); Platelet Count 271 K/mm3 (142-424); Red Blood Count 4.01 M/mm3 (4.60-6.20); Red Cell Distribution Width 18.4 % (11.5-17.5); White Blood Count 17.8 K/mm3 (4.8-10.8)
[2023-03-26 12:27] LABS: MANUAL DIFFERENTIAL MANUAL DIFFERENTIAL (MANUAL DIFF)
[2023-03-26 12:30] VITALS: BP 101/64; PULSE 74
[2023-03-26 12:31] LABS: Chloride 99 mmol/L (98-107); Sodium 135 mmol/L (136-145)
[2023-03-26 12:32] LABS: Potassium 3.8 mmoL/L (3.5-5.1)
[2023-03-26 12:35] LABS: Anion Gap 14.8 mEq/L (5-15); Blood Urea Nitrogen 22 mg/dl (9-20); Calcium 9.1 mg/dl (8.4-10.2); Carbon Dioxide 25 mmol/L (22.0-30.0); Creatinine Clearance Estimated 52 mL/min (50-200); Estimated Glomerular Filt Rate 65 ml/min (>60); GFR (African American) 79 ML/MIN (>60); Glucose 128 mg/dl (74-100)
[2023-03-26 13:06] LABS: Hypochromasia 1+; Lymphocytes % 6 % (10-50); Monocytes % 7 % (2-9); Neutrophils % 87 % (42-76); Ovalocytes 1+; Platelet Estimate Normal; Total Cells Counted 100
[2023-03-26 13:10] VITALS: BP 107/64; PULSE 81
== END 2023-03-26 13:10 | disposition home or self-care (01) ==
LOC: INF 11:47
PROVIDERS: PCP Internal Medicine Adolescent Medicine; Visit Provider Surgery
DX: R11.10 Vomiting, unspecified (principal); S31.109D Unspecified open wound of abdominal wall, unspecified quadrant without penetration into peritoneal cavity, subsequent encounter; T14.8XXA Other injury of unspecified body region, initial encounter; Z48.00 Encounter for change or removal of nonsurgical wound dressing; E86.0 Dehydration
CPT/HCPCS: 80048; 85007; 85025; 96360; 96375; G0463

== ENCOUNTER 2023-03-27 14:06 | Outpatient (CLI) | payer MEDICARE, OTHER, SELFPAY | END 2023-03-27 14:25 | disposition home or self-care (01) | LOC: INF 14:07 | PROVIDERS: Visit Provider Surgery | DX: Z48.01 Encounter for change or removal of surgical wound dressing (principal) | CPT/HCPCS: G0463 ==

== ENCOUNTER 2023-03-28 13:41 | Outpatient (CLI) | payer MEDICARE, OTHER, SELFPAY | END 2023-03-28 13:50 | disposition home or self-care (01) | LOC: INF 13:42 | PROVIDERS: Visit Provider Surgery | DX: Z48.01 Encounter for change or removal of surgical wound dressing (principal) | CPT/HCPCS: G0463 ==

== ENCOUNTER 2023-03-29 10:51 | Outpatient (CLI) | payer MEDICARE, OTHER, SELFPAY | END 2023-03-29 11:07 | disposition home or self-care (01) | LOC: INF 10:52 | PROVIDERS: PCP Internal Medicine Adolescent Medicine; Visit Provider Surgery | DX: Z48.01 Encounter for change or removal of surgical wound dressing (principal) | CPT/HCPCS: G0463 ==

== ENCOUNTER 2023-03-30 15:06 | Outpatient (CLI) | payer MEDICARE, OTHER, SELFPAY | END 2023-03-30 15:27 | disposition home or self-care (01) | LOC: INF 15:07 | PROVIDERS: PCP Internal Medicine Adolescent Medicine; Visit Provider Surgery | DX: S31.109D Unspecified open wound of abdominal wall, unspecified quadrant without penetration into peritoneal cavity, subsequent encounter (principal); Z48.00 Encounter for change or removal of nonsurgical wound dressing | CPT/HCPCS: G0463 ==

== ENCOUNTER → 2023-03-31 15:45 | Outpatient (CLI) | payer MEDICARE, OTHER, SELFPAY | PROVIDERS: PCP Internal Medicine Adolescent Medicine; Visit Provider Internal Medicine Adolescent Medicine | DX: Z48.01 Encounter for change or removal of surgical wound dressing (principal) | CPT/HCPCS: G0463 ==

== ENCOUNTER → 2023-04-01 15:15 | Outpatient (CLI) | payer MEDICARE, OTHER, SELFPAY | PROVIDERS: Visit Provider Surgery | DX: Z48.01 Encounter for change or removal of surgical wound dressing (principal) | CPT/HCPCS: G0463 ==

== ENCOUNTER 2023-04-02 09:14 | Inpatient (IN) | payer MEDICARE, OTHER, SELFPAY ==
[2023-04-02] VITALS (11 sets, daily range): BP systolic 134–173; BP diastolic 50–85; PULSE 78–89; RESP 16–20; TEMP 36.8–37.2; O2SAT 90–97; BMI 20.9; BMI 22.6
--- NOTE | 2023-04-02 09:38 | CT_ITS ---
FINAL REPORT TECHNIQUE: After the administration of intravenous contrast, axial images were obtained through the abdomen and pelvis by computed tomography. This study was performed with technique to keep radiation doses as low as reasonably achievable, (ALARA). Individualized dose reduction techniques using automated exposure control or adjustment of the MA and/or KV according to the patient's size were employed. CLINICAL HISTORY: postop intractable n/v/belching, inability to PO COMPARISON: 03/06/2023 FINDINGS: Abdomen: The lung bases are clear. There are small benign hepatic cysts. Gallbladder is present. The spleen is unremarkable. The adrenals are normal. The pancreas is unremarkable. There are a multitude of benign renal cysts. The kidneys otherwise enhance appropriately. The aorta is normal in caliber. There is no free fluid or adenopathy. Pelvis: There are postoperative changes within the ascending colon which could be due to partial colonic resection. There is diverticulosis without evidence of diverticulitis. Mild stranding is seen in the bilateral inguinal regions. This may be postoperative on the right. The urinary bladder is unremarkable. There is no free fluid or adenopathy. IMPRESSION: Bilateral renal cysts. Partial resection of the ascending colon. Diverticulosis without evidence of diverticulitis. Reviewed, Interpreted and Dictated by Jakub Jansen MD Transcribed by Rach Sotomayor Authenticated and [facility]
--- NOTE | 2023-04-02 09:38 | CT_ITS ---
FINAL REPORT TECHNIQUE: Postcontrast axial images of the chest were performed in a CTA protocol. This study was performed with techniques to keep radiation doses as low as reasonably achievable, (ALARA). Individualized dose reduction technique using automated exposure control or adjustment of mA and/or kV according to the patient's size were employed. CLINICAL HISTORY: cough, SOA, resp failure COMPARISON: 01/03/2023 FINDINGS: There is streak artifact from median sternotomy wires. There are small mediastinal lymph nodes in the AP window. The heart is normal in size. No adenopathy is identified. No pleural or pericardial effusion is identified. The thoracic aorta is normal in caliber with no focal aneurysm or dissection identified. There is no filling defect to suggest pulmonary embolism. There is new, posterior left upper lobe and left base dense consolidation. Previously seen nodules in the medial left lower lobe were not visualized and may be obscured. There is worsening airspace and lingular opacity at the left lung base likely due to progressive pneumonia. There is moderate centrilobular emphysema. IMPRESSION: No evidence for PE on this exam. New left upper lobe infiltrate. Worsening airspace and lingular opacities at the left lung base likely due to progressing pneumonia. Previously seen nodules not identified and may be obscured. Reviewed, Interpreted and Dictated by Jakub Jansen MD Transcribed by Rach Sotomayor Authenticated and [facility]
[2023-04-02 09:42] LABS: Coronavirus 19, PCR Not Detected (NotDetected); Influenza A, PCR Not Detected (NotDetected); Influenza B, PCR Not Detected (NotDetected)
[2023-04-02 09:49] LABS: Basophils % 0.1 % (0.1-2.0); Eosinophils # 0.2 K/mm3 (0.0-0.4); Eosinophils % 0.8 % (0.1-12.0); Hematocrit 33.3 % (42.0-52.0); Hemoglobin 10.8 g/dL (14.1-18.0); Lymphocytes # 0.7 K/mm3 (0.7-4.5); Lymphocytes % 2.9 % (10-50); Mean Corpuscular HGB Conc 32.5 g/dL (31.8-35.4); Mean Corpuscular Hemoglobin 26.8 pg (27.0-31.2); Mean Corpuscular Volume 82.3 fl (80-94); Mean Platelet Volume 9.1 fl (7.4-10.4); Monocytes # 0.4 K/mm3 (0.1-1.0); Monocytes % 1.7 % (1.7-9.3); Neutrophils # 21.2 K/mm3 (1.8-7.8); Neutrophils % 94.5 % (37.0-80.0); Platelet Count 356 K/mm3 (142-424); Red Blood Count 4.04 M/mm3 (4.60-6.20); Red Cell Distribution Width 18.1 % (11.5-17.5)
[2023-04-02] MEDS: LACTATED RINGERS 1000ML 1,000 ML 999 ML IV (09:50)
[2023-04-02] MEDS: SODIUM CHLORIDE 0.9% 25ML BAG 25 ML IV (09:50)
[2023-04-02] MEDS: PROMETHAZINE HCL 25MG/ML 1ML VIAL 25 MG IV (09:50)
[2023-04-02 09:54] LABS: Lactic Acid 2.6 mmol/L (0.7-2.1)
--- NOTE | 2023-04-02 09:55 | HMH.EDGENADL ---
Discharge Plan Disposition Patient Disposition: Admitted Condition: Good Clinical Impressions Clinical Impression: C. difficile colitis, Sepsis, Pneumonia, Respiratory failure Discharge ED Provider: Lorenza Mahajan General Adult HPI General Chief complaint: Nausea/Vomiting/Diarrhea Stated complaint: sent from [facility] possible bowel obstruction Time Seen by Provider: 04/02/23 09:23 Mode of Arrival: Ambulatory Source of Information: Patient Limitations: No Limitations Description of Symptoms (Recalled from ER Triage Doc. by RN): pt reports not eating or drinking and nausea since having a bowel obstruction with a part of his colon removed on 02/25/23, also reports productive cough since surgery, also states he has had increased shortness of breath this am, diagnosed with c diff and is on day 5 of oral vanc, hx of lung cancer last radiation treatment 02/06/23 History of Present Illness HPI narrative: This patient is a 77-year-old male with a history of lung ca with last radiation 02/06/23, paroxysmal atrial fibrillation, CAD, PAD, and COPD as well as recent hemicolectomy for ischemic colitis (02/25/23) with nonhealing surgical wound, postop ileus, and recent dx of C diff colitis on day 5 of oral vancomycin presenting to the ED for evaluation with concern for intractable nausea and vomiting, belching, hiccups, indigestion, and inability to tolerate oral intake. He has had unintentional weight loss of 10 pounds over the last week. He states that overall he is generally weak and is not feeling well. His also notes he has been coughing up a lot of thick, sheridan sputum. He also been feeling more short of breath. He was seen by his primary care provider who referred him here for further evaluation and management with concern that he could potentially be dehydrated or have another obstructive process. Patient denies any other concerns or complaints at this time. Related Data Home Medications Medication Instructions Recorded Confirmed albuterol sulfate 90 mcg/actuation 2 puff inhalation QIDP PRN 08/27/17 04/02/23 aerosol inhaler (Ventolin HFA) Shortness Of Breath folic acid 1 mg tablet 1 mg PO DAILY Supplement 08/27/17 04/02/23 fluticasone propionate 50 2 spray intranasal DAILY Allergies 08/18/22 04/02/23 mcg/actuation nasal spray,suspension (Flonase Allergy Relief) mirtazapine 15 mg tablet 7.5 mg PO HS 09/01/22 04/02/23 multivitamin 1 tab PO DAILY Supplement 09/25/22 04/02/23 montelukast 10 mg tablet 10 mg PO HS 02/25/23 04/02/23 potassium chloride 10 mEq 10 meq PO DAILY 02/25/23 04/02/23 tablet,extended release Previous Rx's Medication Instructions Recorded fluticasone fur. 100 mcg-umeclid 1 inh inhalation DAILY 90 days #90 01/18/23 62.5 mcg-vilant 25 mcg ea inhalat.powder (Trelegy Ellipta) docusate sodium 100 mg capsule 100 mg PO BID PRN Constipation 30 03/07/23 days #60 caps pantoprazole 40 mg tablet,delayed 40 mg PO DAILY Acid reflux #90 tabs 03/12/23 release vancomycin 250 mg capsule 125 mg PO QID 10 days #20 caps 03/27/23 atorvastatin 80 mg tablet 80 mg PO HS #30 tabs 04/02/23 isosorbide mononitrate 30 mg 30 mg PO DAILY #90 tabs 04/02/23 tablet,extended release 24 hr metoprolol succinate 50 mg 50 mg PO DAILY #90 tabs 04/02/23 tablet,extended release 24 hr rivaroxaban 20 mg tablet 20 mg PO HS #30 tabs 04/02/23 spironolactone 25 mg tablet 25 mg PO DAILY 30 days #30 tabs 04/02/23 valsartan 40 mg tablet 40 mg PO DAILY #30 tabs 04/02/23 Allergies Allergy/AdvReac Type Severity Reaction Status Date / Time Penicillins Allergy Intermediate I-ITCHING; Verified 04/02/23 09:45 SWELLING Antihistamines - Ethanolamine Allergy Unknown Unknown Verified 04/02/23 09:45 allergy reaction [place] nut Allergy Rash Verified 04/02/23 09:45 doxycycline AdvReac Mild Rash Verified 04/02/23 09:45 [facility] Disclaimer: The information contained in this section may have been updated after the patient was seen, as this information can be updated by other users. Medical History Abdominal bruit Abnormal ankle brachial index (JUSTICE) Allergic rhinitis CAD (coronary artery disease) Cardiac murmur Carotid artery disease Cecum perforation Chronic cough Claudication Claudication COPD (chronic obstructive pulmonary disease) COPD exacerbation COPD mixed type Dyspnea on exertion Hearing Loss Hearing loss, bilateral Hemoptysis Hyperlipidemia Hypertension Impacted cerumen Laceration of right ear canal Lung nodule Non-healing wound PAD (peripheral artery disease) Peripheral arterial disease PVD (peripheral vascular disease) Small cell lung cancer Smoker Smoking greater than 30 pack years Surgical History H/O angioplasty H/O endarterectomy History of cardiac cath History of carpal tunnel release S/P femoral-popliteal bypass surgery S/P right hemicolectomy Status post insertion of iliac artery stent Family History Other Asthma Social History (Updated 04/02/23 @ 14:19 by Mary Werner RN) Smoking Status: Never smoker alcohol intake: current substance use type: denies use current occupational status: retired Travel in the last 8 weeks: None household members: spouse housing: house marital status: caffeine: Yes ROS Obtained: Yes All systems reviewed & no additional complaints except as documented Physical Exam General General appearance: alert and in no apparent distress Head Head exam: atraumatic and normocephalic Eye Eye exam: Present normal appearance, PERRL and EOMI ENT ENT exam: Present normal exam, normal oropharynx, mucous membranes moist and normal external ear exam Neck Neck exam: Present normal inspection, full ROM and trachea midline; Absent tenderness Chest Chest inspection: Present normal inspection and symmetric chest wall rise; Absent tenderness Respiratory Respiratory exam: Present normal lung sounds bilaterally; Absent respiratory distress, wheezes, stridor or accessory muscle use Cardiovascular Cardiovascular exam: Present regular rate and normal rhythm Abdominal Exam Abdominal exam: Present soft, tenderness (Mild generalized) and other (Incisions clean and dry without surrounding erythema, purulence, or abnormal drainage. Packing in place); Absent distention, guarding, rebound or rigidity Extremities Exam Extremities exam: Present normal inspection, full ROM and normal capillary refill; Absent tenderness or edema Back Exam Back exam: Present normal inspection and full ROM; Absent tenderness Neurological Exam Neurological exam: Present alert, oriented X3, CN II-XII intact and normal gait; Absent motor sensory deficit Psychiatric Psychiatric exam: Present normal affect and normal mood Skin Skin exam: Present warm and dry Medical Decision Making Medical Records Medical records reviewed: Yes I reviewed the patient's medical records. Ricardo Inquiry Pt receiving controlled substance: No Vital Signs: 04/02/23 09:15 04/02/23 10:01 04/02/23 11:00 Temperature 98.2 F Temperature Source Oral Pulse Rate 82 78 Pulse Rate [Left Radial] 82 Respiratory Rate 20 Blood Pressure 151/50 H 151/69 H Blood Pressure [Right Arm] 147/54 H Blood Pressure Mean 83 85 Blood Pressure Mean [Right Arm] 85 Blood Pressure Source Blood Pressure Source [Right Arm] Automatic Cuff Blood Pressure Position Blood Pressure Position [Right Arm] Sitting 02 Sat by Pulse Oximetry 92 L 90 L 97 Oxygen Delivery Method Room Air Oxygen Flow Rate (LPM) 04/02/23 11:30 04/02/23 12:00 04/02/23 12:30 Temperature Temperature Source Pulse Rate 86 79 Pulse Rate [Left Radial] Respiratory Rate Blood Pressure 151/69 H 149/57 H 157/60 H Blood Pressure [Right Arm] Blood Pressure Mean 84 88 Blood Pressure Mean [Right Arm] Blood Pressure Source Blood Pressure Source [Right Arm] Blood Pressure Position Blood Pressure Position [Right Arm] 02 Sat by Pulse Oximetry 92 L 94 L 90 L Oxygen Delivery Method Nasal Cannula Nasal Cannula Oxygen Flow Rate (LPM) 2 2 04/02/23 13:00 04/02/23 13:43 Temperature 98.5 F Temperature Source Oral Pulse Rate 89 82 Pulse Rate [Left Radial] Respiratory Rate 18 Blood Pressure 173/75 H 171/68 H Blood Pressure [Right Arm] Blood Pressure Mean Blood Pressure Mean [Right Arm] Blood Pressure Source Automatic Cuff Blood Pressure Source [Right Arm] Blood Pressure Position Sitting Blood Pressure Position [Right Arm] 02 Sat by Pulse Oximetry 96 Oxygen Delivery Method Nasal Cannula Nasal Cannula Oxygen Flow Rate (LPM) 2 2 Lab Data Lab results reviewed: Yes I reviewed the patient's lab results. Lab Results 04/02/23 09:27: WBC 22.4 H*, RBC 4.04 L, Hgb 10.8 L, Hct 33.3 L, MCV 82.3, MCH 26.8 L, MCHC 32.5, RDW 18.1 H, Plt Count 356, MPV 9.1, Neut % (Auto) 94.5 H, Lymph % (Auto) 2.9 L, [place] % (Auto) 1.7, Eos % (Auto) 0.8, Baso % (Auto) 0.1, Neut # (Auto) 21.2 H, Lymph # (Auto) 0.7, [place] # (Auto) 0.4, Eos # (Auto) 0.2, Baso # (Auto) 0.0, Total Counted 100, Neutrophils % (Manual) 90 H, Band Neutrophils % 2.0, Lymphocytes % (Manual) 4 L, Monocytes % (Manual) 4, Platelet Estimate Normal, Hypochromasia 1+, Anisocytosis 3+, Microcytosis 2+, Acanthocytes (Spur) 1+, Lactate 2.6 H 04/02/23 09:30: SARS-CoV-2 (PCR) Not detected, Influenza A Untype (PCR) Not detected, Influenza Type B (PCR) Not detected 04/02/23 09:50: VBG pH 7.37, VBG pCO2 39.1, VBG pO2 49.6 H, VBG HCO3 22.2 L, VBG Total CO2 23.4, VBG O2 Saturation 79.0 H, VBG Base Excess -3.0 L 04/02/23 10:20: Sodium 137, Potassium 4.0, Chloride 101, Carbon Dioxide 23, Anion Gap 17.0 H, BUN 34 H, Creatinine 0.90, Estimated Creat Clear 52, Estimated GFR 82, Est GFR ( Amer) 99, Glucose 115 H, Calcium 8.8, Phosphorus 3.5, Magnesium 2.0, Total Bilirubin 0.7, AST 89 H, ALT 65, Alkaline Phosphatase 171 H, Total Protein 7.9, Albumin 3.8, Globulin 4.1 H, Albumin/Globulin Ratio 0.9 L, Lipase 49 04/02/23 12:55: Urine Color Yellow, Urine Appearance Clear, Urine pH 6.5, Ur Specific [place] 1.010, Urine Protein Negative, Urine Glucose (UA) Negative, Urine Ketones Negative, Urine Blood Negative, Urine Nitrate Negative, Urine Bilirubin Negative, Urine Urobilinogen 0.2, Ur Leukocyte Esterase Negative 04/02/23 09:27 04/02/23 10:20 Orders (Tests/Meds): ED MEDICATIONS Generic Name Dose Route Start Last Admin Trade Name Freq PRN Reason Stop Dose Admin Lactated Ringer's 1,000 mls @ 75 mls/hr 04/02/23 13:15 04/02/23 13:24 Lactated Ringer's 1000 Ml Bag IV 05/02/23 13:14 75 mls/hr .[id number] RADHA Administration Vancomycin HCl 125 mg 04/02/23 11:11 04/02/23 13:17 Vancomycin Hcl 50mg/Ml 150ml Kit PO 04/12/23 11:10 Not Given QID RADHA Discontinued Medications Generic Name Dose Route Start Last Admin Trade Name Susana PRN Reason Stop Dose Admin Lactated Ringer's 1,000 mls @ 999 mls/hr 04/02/23 09:39 04/02/23 09:50 Lactated Ringer's 1000 Ml Bag IV 04/02/23 10:39 999 mls/hr .Q1H1M ONE Administration Metronidazole 500 mg in 100 mls @ 100 mls/hr 04/02/23 11:12 04/02/23 11:41 Flagyl 500mg/100ml Ivpb IV 04/02/23 12:11 100 mls/hr ONCE ONE Administration Cefepime HCl 2 gm/ Sodium 100 mls @ 200 mls/hr 04/02/23 11:12 04/02/23 12:34 Chloride IV 04/02/23 11:41 200 mls/hr ONCE ONE Administration Iopamidol 70 ml 04/02/23 11:10 04/02/23 11:14 Iopamidol-370 (76%);100ml Bottle IV 04/02/23 11:11 70 ml ONCE ONE Administration Morphine Sulfate 4 mg 04/02/23 13:20 04/02/23 13:27 Morphine 4mg/Ml Syringe IV 04/02/23 13:21 4 mg ONCE ONE Administration Ondansetron HCl 4 mg 04/02/23 13:20 04/02/23 13:26 Ondansetron 4mg/2ml Vial IV 04/02/23 13:21 4 mg ONCE ONE Administration Promethazine HCl 25 mg 04/02/23 09:39 04/02/23 09:50 Promethazine Hcl 25mg/Ml 1ml Vial IV 04/02/23 09:40 25 mg ONCE ONE Administration Sodium Chloride 25 ml 04/02/23 09:39 04/02/23 09:50 Sodium Chloride 0.9% 25ml Bag IV 04/02/23 09:40 25 ml ONCE ONE Administration Sodium Chloride 50 ml 04/02/23 11:10 04/02/23 11:14 0.9 % Sodium Chloride 50 Ml Vial IV 04/02/23 11:11 50 ml ONCE ONE Administration Sodium Chloride 10 ml 04/02/23 11:10 04/02/23 11:14 Sodium Chloride 0.9% 10ml Syr (Rad Only) IV 04/02/23 11:11 10 ml ONCE ONE Administration ORDERS Category Date Time Status CT abdomen pelvis w con Stat Cat Scan 04/02/23 09:[address] angio chest PE protocol Stat Cat Scan 04/02/23 09:38 Completed Complete Blood Count Auto Diff AMLAB Lab 04/03/23 06:00 Ordered Complete Blood Count Auto Diff Stat Lab 04/02/23 09:27 Completed Comprehensive Metabolic Panel AMLAB Lab 04/03/23 06:00 Ordered Comprehensive Metabolic Panel Stat Lab 04/02/23 10:20 Completed Lactic Acid Follow Up (RFLX 1) Stat Lab 04/02/23 14:15 Completed Lactic Acid Stat Lab 04/02/23 09:27 Completed Lipase Stat Lab 04/02/23 10:20 Completed Magnesium AMLAB Lab 04/03/23 06:00 Ordered Magnesium Stat Lab 04/02/23 10:20 Completed Phosphorous Stat Lab 04/02/23 10:20 Completed Rapid PCR Covid and Flu A/B Stat Lab 04/02/23 09:30 Completed UA [Urinalysis and Microscopic] Stat Lab 04/02/23 12:55 Results Blood Culture Stat Micro 04/02/23 10:20 Ordered Venous Blood Gas Stat RT 04/02/23 09:50 Completed ECG initial Besson Routine Y 04/02/23 11:29 Completed ECG Data Tracing #1: I reviewed this ECG and interpreted as documented below: Normal sinus rhythm with a ventricular rate of [address] changes concerning for ischemia. ECG initial impression date: 04/02/23 ECG initial impression time: 11:32 Medical Decision Narrative: In summary, this patient is a 77-year-old male presenting to the Emergency Department for evaluation of intractable nausea, poor oral intake, general weakness, cough, and shortness of breath. Differential diagnoses considered include but are not limited to bowel obstruction, postoperative infection, fulminant C. difficile colitis, sepsis, dehydration, malnutrition. Ruling out the most morbid conditions drove assessment. It should be noted patient's history includes lung cancer previously on radiation, CAD, PAD, COPD, and C. difficile colitis with recent colectomy which may or may not be at goal therapy. This complicates all aspects of care by increasing patient's risk for morbidity. I reviewed patient's past medical records and noted his recent admission as per HPI. On exam, the patient is very ill-appearing with cachexia, general weakness, abdominal tenderness, cough, and hypoxia. Workup included evaluation including lactic and blood cultures as well as CT chest, abdomen, and pelvis. He was given a bolus of IV fluids, as he appears clinically dry. He was also given IV Zofran. I independently interpreted CT scan prior to the radiologist read and noted concerns for pneumonia but no other obvious acute concerns at this time. Please see their read for final interpretation. Labs were obtained that demonstrated significant leukocytosis. At this time, high concerns for sepsis given pneumonia, C. difficile, tachypnea, hypoxia, and overall clinical condition. On reassessment, patient is complaining of some chronic pain but is otherwise resting comfortably. He continues to require 2 L nasal cannula. Given concerns for possible fulminant C. difficile as well as sepsis with pneumonia, patient was given oral vancomycin, IV cefepime, and IV Flagyl. At this time, feel he would benefit from admission for continued monitoring. I called and had an interactive discussion with Dr. Fitzgerald who graciously admitted the patient for further evaluation and management. Critical Care Critical Care Time Critical Care Time: No
[2023-04-02 10:07] LABS: White Blood Count 22.4 K/mm3 (4.8-10.8)
[2023-04-02 10:08] LABS: MANUAL DIFFERENTIAL MANUAL DIFFERENTIAL (MANUAL DIFF)
--- NOTE | 2023-04-02 10:13 | PC.NURSE ---
provided pt with urinal to collect urine sample.
--- NOTE | 2023-04-02 10:13 | PC.NURSE ---
lab at bedside collecting blood for blood cultures.
--- NOTE | 2023-04-02 10:14 | PC.NURSE ---
pt placed on 2L NC. 02 noted at 89-90% on RA. ER aware.
[2023-04-02 10:16] LABS: VBG HCO3 22.2 mmol/L (23-30); VBG PCO2 39.1 mmol/L (35-51); VBG PH 7.37 mmol/L (7.31-7.41); VBG PO2 49.6 mmol/L (28-40); VBG Total CO2 23.4 mmol/L (23-27)
[2023-04-02 10:50] LABS: Lymphocytes % 4 % (10-50); Monocytes % 4 % (2-9); Neutrophils % 90 % (42-76); Total Cells Counted 100
[2023-04-02 10:51] LABS: Anisocytosis 3+; Hypochromasia 1+; Microcytosis 2+; Platelet Estimate Normal
[2023-04-02 10:52] LABS: Chloride 101 mmol/L (98-107); Sodium 137 mmol/L (136-145)
[2023-04-02 10:52] LABS: Acanthocytes 1+
[2023-04-02 10:54] LABS: Alanine Aminotransferase 65 U/L (12-78); Alkaline Phosphatase 171 U/L (38-126); Aspartate Amino Transferase 89 U/L (17-59); Bilirubin,Total 0.7 mg/dl (0.2-1.3); Blood Urea Nitrogen 34 mg/dl (9-20); Carbon Dioxide 23 mmol/L (22.0-30.0); Creatinine Clearance Estimated 52 mL/min (50-200); Estimated Glomerular Filt Rate 82 ml/min (>60); GFR (African American) 99 ML/MIN (>60)
[2023-04-02 10:55] LABS: Albumin Level 3.8 g/dl (3.5-5.0); Albumin/Globulin Ratio 0.9 (1.1-1.8); Calcium 8.8 mg/dl (8.4-10.2); Globulin 4.1 g/dL (1.3-3.2); Glucose 115 mg/dl (74-100); Lipase 49 U/L (23-300); Phosphorous 3.5 mg/dl (2.5-4.5); Total Protein,Serum 7.9 g/dl (6.3-8.2)
--- NOTE | 2023-04-02 10:58 | PC.NURSE ---
pt refuses another stick for cultures , 1 set collected
--- NOTE | 2023-04-02 11:02 | PC.NURSE ---
Eileen from lab attempted to obtain blood cx. After multiple sticks she was only obtain 1 set. Myself and Sylvain Vinson at BS to attempt to draw second set. Stuck pt 1 time with 23g butterfly and got flash. Was not able to get enough blood for cx. Pt refuses to be stuck again stating enough is enough . Dr. Mahajan and Charge nurse notified.
--- NOTE | 2023-04-02 11:06 | PC.NURSE ---
Pt gone to RAD via stretcher
[2023-04-02] MEDS: IOPAMIDOL-370 (76%);100ML BOTTLE 70 ML IV (11:14)
[2023-04-02] MEDS: SODIUM CHLORIDE 0.9% 10ML SYR (RAD ONLY) 10 ML IV (11:14)
[2023-04-02] MEDS: 0.9 % SODIUM CHLORIDE 50 ML VIAL IV (11:14)
--- NOTE | 2023-04-02 11:25 | PC.NURSE ---
Pt has returned to room from RAD
--- NOTE | 2023-04-02 11:29 | ECG_ITS ---
APPROVED REPORT Exam: Resting ECG HR:85 bpm ECG Measurements Heart Rate 85 AXES MI 163 P 82 QRSd 111 QRS 77 QT 401 T 90 QTc 443 Conclusion SINUS RHYTHM WITH OCCASIONAL VENTRICULAR PREMATURE COMPLEXES MODERATE INTRAVENTRICULAR CONDUCTION DELAY [110+ ms QRS DURATION] MODERATE ST DEPRESSION [0.05+ mV ST DEPRESSION] ABNORMAL ECG UNCONFIRMED REPORT Electronically signed by : Curtis Montes MD 04/02/2023 14:43:44
--- NOTE | 2023-04-02 11:32 | PC.NURSE ---
came out and said pt's nose is bleeding. applied pressure to bridge of his nose for approximately 1 minute and bleeding was controlled after relieving pressure.
--- NOTE | 2023-04-02 11:34 | PC.NURSE ---
reminded pt for need for urine sample. states he is still unable to go.
[2023-04-02] MEDS: METRONIDAZ/SOD CHL 500 MG/100 ML PIGGYBACK 100 MG IV ×2 (11:41→18:59)
--- NOTE | 2023-04-02 11:44 | PC.NURSE ---
CALLED PHARMACY FOR VANC AND CEFEPIME
[2023-04-02] MEDS: CEFEPIME HCL 2 GM in 0.9 % SODIUM CHLORIDE 100 ML IV ×2 (12:34→22:08)
[2023-04-02] MEDS: VANCOMYCIN HCL 50MG/ML 150ML KIT 125 MG PO ×2 (12:47→17:29)
[2023-04-02 12:58] LABS: Microscopic, Urine URINE MICROSCOPIC (MICROSCOPIC)
--- NOTE | 2023-04-02 13:07 | PC.NURSE ---
Dr. Mahajan at BS to update pt/visitor on POC
[2023-04-02 13:10] LABS: Appearance,Urine CLEAR (Clear); Bilirubin,Urine Negative (Negative); Blood, Urine Negative (Negative); Color,Urine YELLOW (Yellow); Glucose,Urine (UA) Negative (Negative); Ketones,Urine Negative (Negative); Leukocyte Esterase,Urine Negative (Negative); Nitrate,Urine Negative (Negative); PH,Urine 6.5 (5.0-8.5); Protein,Urine Negative (Negative); Urobilinogen,Urine 0.2 EU/dl (0.2)
--- NOTE | 2023-04-02 13:15 | PC.NURSE ---
CALLED PHARMACY TO RESCHEDULE VANC.
[2023-04-02] MEDS: LACTATED RINGERS 1000ML 1,000 ML 75 ML IV (13:24)
[2023-04-02] MEDS: ONDANSETRON 4MG/2ML VIAL 4 MG IV (13:26)
[2023-04-02] MEDS: MORPHINE 4MG/ML SYRINGE 4 MG IV (13:27)
[2023-04-02 13:34] LABS: Reflex Lactic Add Lactic Reflex
--- NOTE | 2023-04-02 13:42 | PC.NURSE ---
CALLED REPORT TO SUZETTE MONTES
--- NOTE | 2023-04-02 14:02 | PC.NURSE ---
arrived by w/c from ED
--- OUTSIDE RECORDS SUMMARY | 2023-04-02 14:22 | XMS_ITS | Clinical Summary ---
Author Name Unknown Address [address] [place] [address] Phone Organization [facility] Address [address] [place] [address] Phone Care Team Providers [employer] [place] [employer] Supervisor Name Role Phone Unavailable Unavailable Conditions or Problems No information available. Medications No information available. Medications Administered No information available. Allergies, Adverse Reactions, Alerts No information available. Results No information available. Plan of Care No information available. Procedures No information available. Vital Signs No information available. Immunizations No information available. Advance Directives No information available.
--- NOTE | 2023-04-02 14:30 | HMH.PHAINT1 ---
Pharmacy Intervention Comments: HOME MEDICATION LIST VERIFIED USING LIST FROM OUTPATIENT PHARMACY AND MOST RECENT H DISCHARGE
[2023-04-02 14:37] LABS: Lactic Acid Follow Up (RFLX 1) 1.8 mmol/L (0.7-2.1)
--- NOTE | 2023-04-02 14:45 | PC.WOUNDNOTE ---
open areas noted to abdomen
[2023-04-02 15:43] LABS: Squamous Epithelial Cell,Urine Occasional #/hpf (0-5); WBC,Urine Occasional #/hpf (0-3)
--- NOTE | 2023-04-02 17:34 | PC.NURSE ---
PT IS RESTING IN BED. ALERT AND ORIENTED X4. CAHTO. LUNG SOUNDS CLEAR. ABDOMEN SOFT/NON TENDER WITH ACTIVE BOWEL SOUNDS. PT STATES APPETITE HAS BEEN VERY POOR AND A 10 LB WT LOSS IN THE LAST WEEK. DRESSING TO THE ABDOMEN WAS CHANGED THIS SHIFT. OPEN AREAS WAS PACKED WITH 2X2'S AND REINFORCED WITH 4X4 AND TAPE. DRESSING NOTED TO WOUND ON THE RLE THAT PT HAS HAD FOR SEVERAL MONTHS. PT'S FAMILY REQUESTED FOR STAFF NOT TO REMOVE DRESSING B/C IT WAS CHANGED TODAY ALREADY AND SHE DOES NOT HAVE THE MEDICINE HERE AT THE HOSPITAL THAT SHE APPLIES TO WOUND WITH EACH DRESSING CHANGE. WILL CONTINUE TO MONITOR.
--- NOTE | 2023-04-02 18:33 | P.HP_ITS ---
History of Present Illness *Admission Date: 04/02/23 *Reason for visit:: nausea *History of present illness: Mr. King is a 77-year-old male with history of lung cancer status postradiation 02/06/2023, paroxysmal A-fib, CAD, PAD, COPD. Recently underwent hemicolectomy with end-to-end anastomosis secondary to cecal perforation from ischemic colitis on 02/25/2023. Developed postop ileus with prolonged hospitalization. Had been on antibiotics during that timeframe. Recently over the past week has been diagnosed with C. difficile colitis and started on oral vancomycin 5 days ago. Presents to the ER today because of intractable nausea and vomiting. Having increased belching. Poor p.o. intake and inability to tolerate fluids today. Patient has noted a weight loss over the past week as well approximately 10 pounds. He has felt more weak and required significant assistance at home from his . Additionally his reports that over the past week he has developed more productive cough with thick [place] sputum. Increased shortness of breath. Workup in the ER significant for oxygen requirement of 2 L, chest imaging with pneumonia, elevated white count. Medicine consulted for admission. Patient noted to have a white count of 22,000, normal kidney function but elevated BUN at 34. Oxygen requirement of 2 L is new for him. States he is feeling better after arriving to the floor and having been started on nausea medication and IV fluids. Afebrile at this time. Denies any blood in vomit or stool. Has been having approximately 1 stool daily that is generally soft or loose. [facility] Disclaimer: The information contained in this section may have been updated after the patient was seen, as this information can be updated by other users. Medical History Abdominal bruit Abnormal ankle brachial index (JUSTICE) Allergic rhinitis CAD (coronary artery disease) Cardiac murmur Carotid artery disease Cecum perforation Chronic cough Claudication Claudication COPD (chronic obstructive pulmonary disease) COPD exacerbation COPD mixed type Dyspnea on exertion Hearing Loss Hearing loss, bilateral Hemoptysis Hyperlipidemia Hypertension Impacted cerumen Laceration of right ear canal Lung nodule Non-healing wound PAD (peripheral artery disease) Peripheral arterial disease PVD (peripheral vascular disease) Small cell lung cancer Smoker Smoking greater than 30 pack years Surgical History H/O angioplasty H/O endarterectomy History of cardiac cath History of carpal tunnel release S/P femoral-popliteal bypass surgery S/P right hemicolectomy Status post insertion of iliac artery stent Family History Asthma Social History Smoking Status: Never smoker alcohol intake: current substance use type: denies use current occupational status: retired Travel in the last 8 weeks: None household members: spouse housing: house marital status: caffeine: Yes Review of Systems Review of Systems Review of systems (narrative): 14 point review of systems performed, pertinent positives and negatives as per [facility] Meds Home Medications and Allergies Home Medications Medication Instructions Recorded Confirmed Type albuterol sulfate 90 mcg/actuation 2 puff inhalation QIDP PRN 08/27/17 04/02/23 History aerosol inhaler (Ventolin HFA) Shortness Of Breath folic acid 1 mg tablet 1 mg PO DAILY Supplement 08/27/17 04/02/23 History fluticasone propionate 50 2 spray intranasal DAILY Allergies 08/18/22 04/02/23 History mcg/actuation nasal spray,suspension (Flonase Allergy Relief) mirtazapine 15 mg tablet 7.5 mg PO HS 09/01/22 04/02/23 History multivitamin 1 tab PO DAILY Supplement 09/25/22 04/02/23 History fluticasone fur. 100 mcg-umeclid 1 inh inhalation DAILY 90 days #90 01/18/23 04/02/23 Rx 62.5 mcg-vilant 25 mcg ea inhalat.powder (Trelegy Ellipta) montelukast 10 mg tablet 10 mg PO HS 02/25/23 04/02/23 History potassium chloride 10 mEq 10 meq PO DAILY 02/25/23 04/02/23 History tablet,extended release docusate sodium 100 mg capsule 100 mg PO BID PRN Constipation 30 03/07/23 04/02/23 Rx days #60 caps pantoprazole 40 mg tablet,delayed 40 mg PO DAILY Acid reflux #90 tabs 03/12/23 04/02/23 Rx release vancomycin 250 mg capsule 125 mg PO QID 10 days #20 caps 03/27/23 04/02/23 Rx atorvastatin 80 mg tablet 80 mg PO HS #30 tabs 04/02/23 Rx isosorbide mononitrate 30 mg 30 mg PO DAILY #90 tabs 04/02/23 Rx tablet,extended release 24 hr metoprolol succinate 50 mg 50 mg PO DAILY #90 tabs 04/02/23 Rx tablet,extended release 24 hr rivaroxaban 20 mg tablet 20 mg PO HS #30 tabs 04/02/23 Rx spironolactone 25 mg tablet 25 mg PO DAILY 30 days #30 tabs 04/02/23 Rx valsartan 40 mg tablet 40 mg PO DAILY #30 tabs 04/02/23 Rx New Prescriptions to Start Prescriptions: Allergies Allergy/AdvReac Type Severity Reaction Status Date / Time Penicillins Allergy Intermediate I-ITCHING; Verified 04/02/23 09:45 SWELLING Antihistamines - Ethanolamine Allergy Unknown Unknown Verified 04/02/23 09:45 allergy reaction [place] nut Allergy Rash Verified 04/02/23 09:45 doxycycline AdvReac Mild Rash Verified 04/02/23 09:45 Exam Data for Last 24 hours Vital signs and Labs for Last 24 Hours: Temp Pulse Resp BP Pulse Ox O2 Del Method O2 Flow Rate 98.4 F 84 18 171/85 H 95 Nasal Cannula 2 04/02/23 15:39 04/02/23 15:39 04/02/23 15:39 04/02/23 15:39 04/02/23 15:39 04/02/23 17:00 04/02/23 17:00 Laboratory Results - last 24 hr 04/02/23 09:27: WBC 22.4 H*, RBC 4.04 L, Hgb 10.8 L, Hct 33.3 L, MCV 82.3, MCH 26.8 L, MCHC 32.5, RDW 18.1 H, Plt Count 356, MPV 9.1, Neut % (Auto) 94.5 H, Lymph % (Auto) 2.9 L, [place] % (Auto) 1.7, Eos % (Auto) 0.8, Baso % (Auto) 0.1, Neut # (Auto) 21.2 H, Lymph # (Auto) 0.7, [place] # (Auto) 0.4, Eos # (Auto) 0.2, Baso # (Auto) 0.0, Total Counted 100, Neutrophils % (Manual) 90 H, Band Neutrophils % 2.0, Lymphocytes % (Manual) 4 L, Monocytes % (Manual) 4, Platelet Estimate Normal, Hypochromasia 1+, Anisocytosis 3+, Microcytosis 2+, Acanthocytes (Spur) 1+, Lactate 2.6 H 04/02/23 09:30: SARS-CoV-2 (PCR) Not detected, Influenza A Untype (PCR) Not detected, Influenza Type B (PCR) Not detected 04/02/23 09:50: VBG pH 7.37, VBG pCO2 39.1, VBG pO2 49.6 H, VBG HCO3 22.2 L, VBG Total CO2 23.4, VBG O2 Saturation 79.0 H, VBG Base Excess -3.0 L 04/02/23 10:20: Sodium 137, Potassium 4.0, Chloride 101, Carbon Dioxide 23, Anion Gap 17.0 H, BUN 34 H, Creatinine 0.90, Estimated Creat Clear 52, Estimated GFR 82, Est GFR ( Amer) 99, Glucose 115 H, Calcium 8.8, Phosphorus 3.5, Magnesium 2.0, Total Bilirubin 0.7, AST 89 H, ALT 65, Alkaline Phosphatase 171 H , Total Protein 7.9, Albumin 3.8, Globulin 4.1 H, Albumin/Globulin Ratio 0.9 L, Lipase 49 04/02/23 12:55: Urine Color Yellow, Urine Appearance Clear, Urine pH 6.5, Ur Specific [place] 1.010, Urine Protein Negative, Urine Glucose (UA) Negative, Urine Ketones Negative, Urine Blood Negative, Urine Nitrate Negative, Urine Bilirubin Negative, Urine Urobilinogen 0.2, Ur Leukocyte Esterase Negative, Urine RBC None, Urine WBC Occasional, Ur Squamous Epith Cells Occasional, Urine Bacteria None 04/02/23 14:15: Lactate 1.8 I & O for Last 24 hours: Intake & Output 03/30/23 03/31/23 04/01/23 04/02/23 23:59 23:59 23:59 23:59 Weight 63.503 kg Constitutional Constitutional: no acute distress, average body habitus and cooperative *Routine HEENT Exam Head: Present normocephalic Eye: Present EOMI and PERRL ENT: Present mucous membranes moist *Routine Neck Exam Neck: Present supple; Absent lymphadenopathy *Routine Respiratory Exam Respiratory: Present prolonged expiratory phase, wheezes, crackles (Right lower base) and normal respiratory effort; Absent rhonchi *Routine Cardiovascular Exam Cardiovascular: Present RRR *Routine Abdominal Exam Abdominal: Present soft, normoactive bowel sounds and tenderness (Diffuse nonfocal); Absent distended *Routine Rectal Exam Rectal:: deferred *Routine Genitalia Exam Genitalia:: deferred *Routine Extremities Exam Extremities: Absent cyanosis, clubbing or edema *Routine Skin Exam Skin: Present warm; Absent rash *Routine Neurological Exam Neurological: Present alert, oriented X3 and moving all extremities; Absent altered mental status Assessment and Plan *Assessment and plan (1) Sepsis: Status: Acute Category: Medical Code(s): A41.9 - Sepsis, unspecified organism (2) C. difficile colitis: Status: Acute Category: Medical Code(s): A04.72 - Enterocolitis due to Clostridium difficile, not specified as recurrent (3) Pneumonia: Status: Acute Category: Medical Code(s): J18.9 - Pneumonia, unspecified organism (4) Respiratory failure: Status: Acute Category: Medical Code(s): J96.90 - Respiratory failure, unspecified, unspecified whether with hypoxia or hypercapnia (5) CAD (coronary artery disease): Status: Acute Qualifiers: Coronary Disease-Associated Artery/Lesion type: bypass graft [place] vs. transplanted heart: [place] heart Associated angina: without angina Qualified Code(s): I25.810 - Atherosclerosis of coronary artery bypass graft(s) without angina pectoris Category: Medical Code(s): I25.10 - Atherosclerotic heart disease of [place] coronary artery without angina pectoris (6) PAD (peripheral artery disease): Status: Acute Category: Medical Code(s): I73.9 - Peripheral vascular disease, unspecified (7) COPD (chronic obstructive pulmonary disease): Status: Chronic Qualifiers: COPD type: unspecified COPD Qualified Code(s): J44.9 - Chronic obstructive pulmonary disease, unspecified Category: Medical Code(s): J44.9 - Chronic obstructive pulmonary disease, unspecified (8) Hx of coronary artery bypass graft: Status: Chronic Category: Surgical Code(s): Z95.1 - Presence of aortocoronary bypass graft (9) Paroxysmal atrial fibrillation: Status: Acute Category: Medical Code(s): I48.0 - Paroxysmal atrial fibrillation Plan 77-year-old male with protracted course of abdominal issues over the past month, presents to the ER with nausea and vomiting. Found to meet sepsis criteria with leukocytosis, persistent infection with pneumonia and C. difficile, and tachypnea. Discussed case with ER physician, request admission for IV antibiotics, p.o. antibiotics, IV fluids and further management. Medicine agreed to admit. Problems addressed as follows: Sepsis Pneumonia COPD -CT reviewed, left upper lobe airspace disease. -Initiated on IV antibiotics in the ER, continue cefepime 2 g every 12 hours and Flagyl 500 mg every 8 hours IV. -DuoNebs every 6 hours scheduled. Continue home Trelegy. -Supplemental oxygen as needed, goal saturation greater 90%. Currently on 2 L. -Blood culture obtained, sputum sample pending -Leukocytosis of 22,000. Repeat CBC ordered for the morning. C. difficile colitis -Continues to have nausea, poor p.o. intake. Increase vancomycin to 250 mg every 6 hours p.o. -Initiate probiotic and fiber supplement -Zofran 4 mg every 8 hours as needed for nausea -Imaging of abdomen did not show fulminant disease. Having bowel movements. CAD/PAD/hypertension: Continue metoprolol 50 g extended release daily, valsartan 40 mg daily, isosorbide mononitrate 30 mg daily, and Xarelto 20 mg daily. Will hold Lipitor 80 mg nightly due to GI symptoms Sleep disorder: Continue mirtazapine 7.5 mg nightly Full code Regular diet Xarelto 20 mg daily
[2023-04-02] MEDS: VANCOMYCIN HCL 50MG/ML 150ML KIT 250 MG PO (21:09)
[2023-04-02] MEDS: RIVAROXABAN 20 MG 20 EACH PO (21:09)
[2023-04-02] MEDS: MIRTAZAPINE 15 MG TABLET 7.5 MG PO (21:10)
[2023-04-02] MEDS: MORPHINE 2MG/ML SYRINGE 2 MG IV (21:52)
[2023-04-03] VITALS (8 sets, daily range): BP systolic 138–156; BP diastolic 59–80; PULSE 72–98; RESP 16–20; TEMP 36.4–38; O2SAT 93–96; BMI 22.5
[2023-04-03] MEDS: METRONIDAZ/SOD CHL 500 MG/100 ML PIGGYBACK 100 MG IV ×3 (02:04→18:00)
[2023-04-03 07:25] LABS: Eosinophils # 0.2 K/mm3 (0.0-0.4); Eosinophils % 1.4 % (0.1-12.0); Hematocrit 27.4 % (42.0-52.0); Lymphocytes % 7.8 % (10-50); Mean Corpuscular Hemoglobin 26.8 pg (27.0-31.2); Mean Corpuscular Volume 81.4 fl (80-94); Mean Platelet Volume 7.6 fl (7.4-10.4); Monocytes # 0.6 K/mm3 (0.1-1.0); Monocytes % 4.9 % (1.7-9.3); Neutrophils % 85.9 % (37.0-80.0); Platelet Count 276 K/mm3 (142-424); Red Blood Count 3.37 M/mm3 (4.60-6.20); Red Cell Distribution Width 18.2 % (11.5-17.5); White Blood Count 12.9 K/mm3 (4.8-10.8)
[2023-04-03 07:28] LABS: MANUAL DIFFERENTIAL MANUAL DIFFERENTIAL (MANUAL DIFF)
[2023-04-03 07:31] LABS: Chloride 101 mmol/L (98-107); Potassium 3.6 mmoL/L (3.5-5.1); Sodium 136 mmol/L (136-145)
[2023-04-03 07:33] LABS: Alanine Aminotransferase 61 U/L (12-78); Aspartate Amino Transferase 68 U/L (17-59); Blood Urea Nitrogen 20 mg/dl (9-20); Creatinine Clearance Estimated 56 mL/min (50-200); Estimated Glomerular Filt Rate 94 ml/min (>60); GFR (African American) 114 ML/MIN (>60)
[2023-04-03 07:34] LABS: Albumin Level 3.1 g/dl (3.5-5.0); Albumin/Globulin Ratio 0.9 (1.1-1.8); Alkaline Phosphatase 143 U/L (38-126); Anion Gap 12.6 mEq/L (5-15); Bilirubin,Total 0.5 mg/dl (0.2-1.3); Calcium 8.2 mg/dl (8.4-10.2); Carbon Dioxide 26 mmol/L (22.0-30.0); Globulin 3.6 g/dL (1.3-3.2); Glucose 92 mg/dl (74-100); Magnesium 1.8 mg/dl (1.6-2.3); Total Protein,Serum 6.7 g/dl (6.3-8.2)
[2023-04-03 08:29] LABS: Eosinophils % 1 % (0-3); Hypochromasia 1+; Lymphocytes % 11 % (10-50); Monocytes % 2 % (2-9); Neutrophils % 86 % (42-76); Platelet Estimate Normal; Total Cells Counted 100
[2023-04-03] MEDS: ISOSORBIDE MONO 30MG TAB.ER.24H 30 MG PO (09:18)
[2023-04-03] MEDS: CALCIUM POLYCARBOPHIL 625MG TAB 625 MG PO ×2 (09:18→21:48)
[2023-04-03] MEDS: IRBESARTAN 75MG TABLET 37.5 MG PO (09:19)
[2023-04-03] MEDS: LACTOBACILLUS PROBIOTIC COMB CAPSULE 1 CAP PO (09:19)
[2023-04-03] MEDS: METOPROLOL SUCCINATE XL 50MG TABLET 50 MG PO (09:19)
[2023-04-03] MEDS: VANCOMYCIN HCL 50MG/ML 150ML KIT 250 MG PO ×4 (09:26→21:49)
--- NOTE | 2023-04-03 10:09 | ECG_ITS ---
APPROVED REPORT Exam: Resting ECG HR:84 bpm ECG Measurements Heart Rate 84 AXES NC 151 P 84 QRSd 111 QRS 78 QT 395 T 74 QTc 436 Conclusion SINUS RHYTHM MODERATE INTRAVENTRICULAR CONDUCTION DELAY [110+ ms QRS DURATION] MODERATE ST DEPRESSION [0.05+ mV ST DEPRESSION] ABNORMAL ECG UNCONFIRMED REPORT Electronically signed by : Curtis Montes MD 04/04/2023 18:40:57
[2023-04-03] MEDS: MORPHINE 2MG/ML SYRINGE 2 MG IV (11:03)
[2023-04-03] MEDS: CEFEPIME HCL 2 GM in 0.9 % SODIUM CHLORIDE 100 ML IV ×2 (11:03→22:01)
[2023-04-03 11:05] LABS: Troponin I < 0.01 ng/ml (0.00-0.034)
[2023-04-03] MEDS: FLUTICASONE/UMECLIDIN/VILANTER 100/62.5/25MCG INHALER 1 PUFF IH (11:50)
--- NOTE | 2023-04-03 15:16 | PC.WOUNDNOTE ---
open area noted to rle
--- NOTE | 2023-04-03 15:49 | PC.NURSE ---
PT IS RESTING IN BED. ALERT AND ORIENTED X4. PT TOLERATED SITTING UP IN THE CHAIR FOR SEVERAL HOURS THIS SHIFT. TOLERATED TAKING A SHOWER. DRESSING TO THE ABDOMEN AND RLE EXTREMITY CHANGED THIS SHIFT. LUNG SOUNDS CLEAR. NO SWELLING NOTED TO BLE. ABDOMEN SOFT/NON TENDER WITH ACTIVE BOWEL SOUNDS. WILL CONTINUE TO MONITOR.
--- NOTE | 2023-04-03 16:07 | EXP.PN ---
Subjective *Date: 04/03/23 *Time: 16:07 Interval history: s seen and evaluated at the bedside. denies chest pain, shortness of breath, nausea, vomiting, abdominal pain. Patient does not have any complaints at this time. feels better overall Exam Data for Last 24 hours Vital signs and Labs for Last 24 Hours: Temp Pulse Resp BP Pulse Ox O2 Del Method O2 Flow Rate 98.5 F 98 H 20 156/70 H 95 Room Air 2 04/03/23 08:00 04/03/23 08:00 04/03/23 08:00 04/03/23 08:00 04/03/23 08:00 04/03/23 14:59 04/02/23 18:48 Laboratory Results - last 24 hr 04/03/23 06:53: WBC 12.9 H D, RBC 3.37 L, Hgb 9.0 L D, Hct 27.4 L, MCV 81.4, MCH 26.8 L, MCHC 33.0, RDW 18.2 H, Plt Count 276, MPV 7.6, Neut % (Auto) 85.9 H, Lymph % (Auto) 7.8 L, [place] % (Auto) 4.9, Eos % (Auto) 1.4, Baso % (Auto) 0.0 L, Neut # (Auto) 11.0 H, Lymph # (Auto) 1.0, [place] # (Auto) 0.6, Eos # (Auto) 0.2, Baso # (Auto) 0.0, Total Counted 100, Neutrophils % (Manual) 86 H, Lymphocytes % (Manual) 11, Monocytes % (Manual) 2, Eosinophils % (Manual) 1, Platelet Estimate Normal, Hypochromasia 1+, Sodium 136, Potassium 3.6, Chloride 101, Carbon Dioxide 26, Anion Gap 12.6, BUN 20 D, Creatinine 0.80, Estimated Creat Clear 56, Estimated GFR 94, Est GFR ( Amer) 114, Glucose 92, Calcium 8.2 L, Magnesium 1.8, Total Bilirubin 0.5, AST 68 H, ALT 61, Alkaline Phosphatase 143 H, Total Protein 6.7, Albumin 3.1 L D, Globulin 3.6 H, Albumin/Globulin Ratio 0.9 L 04/03/23 10:33: Troponin I < 0.01 I & O for Last 24 hours: Intake & Output 03/31/23 04/01/23 04/02/23 04/03/23 23:59 23:59 23:59 23:59 Intake Total 640 / 640 Output Total 0 / 0 0 / 0 Balance 0 / 320 640 / 640 Weight 63.503 kg 63.5 kg Constitutional Constitutional: no acute distress *Routine HEENT Exam Head: Present normocephalic Eye: Present EOMI and PERRL ENT: Present mucous membranes moist *Routine Neck Exam Neck: Present supple; Absent lymphadenopathy *Routine Respiratory Exam Respiratory: Present CTA bilaterally *Routine Cardiovascular Exam Cardiovascular: Present RRR *Routine Abdominal Exam Abdominal: Present soft and normoactive bowel sounds; Absent tenderness *Routine Extremities Exam Extremities: Absent cyanosis, clubbing or edema *Routine Skin Exam Skin: Present warm; Absent rash *Routine Neurological Exam Neurological: Present alert and oriented X3 Assessment and Plan *Assessment and plan (1) Sepsis: Status: Acute Category: Medical Code(s): A41.9 - Sepsis, unspecified organism (2) C. difficile colitis: Status: Acute Category: Medical Code(s): A04.72 - Enterocolitis due to Clostridium difficile, not specified as recurrent (3) Pneumonia: Status: Acute Category: Medical Code(s): J18.9 - Pneumonia, unspecified organism (4) Respiratory failure: Status: Acute Category: Medical Code(s): J96.90 - Respiratory failure, unspecified, unspecified whether with hypoxia or hypercapnia (5) CAD (coronary artery disease): Status: Acute Qualifiers: Coronary Disease-Associated Artery/Lesion type: bypass graft [place] vs. transplanted heart: [place] heart Associated angina: without angina Qualified Code(s): I25.810 - Atherosclerosis of coronary artery bypass graft(s) without angina pectoris Category: Medical Code(s): I25.10 - Atherosclerotic heart disease of [place] coronary artery without angina pectoris (6) PAD (peripheral artery disease): Status: Acute Category: Medical Code(s): I73.9 - Peripheral vascular disease, unspecified (7) COPD (chronic obstructive pulmonary disease): Status: Chronic Qualifiers: COPD type: unspecified COPD Qualified Code(s): J44.9 - Chronic obstructive pulmonary disease, unspecified Category: Medical Code(s): J44.9 - Chronic obstructive pulmonary disease, unspecified (8) Hx of coronary artery bypass graft: Status: Chronic Category: Surgical Code(s): Z95.1 - Presence of aortocoronary bypass graft (9) Paroxysmal atrial fibrillation: Status: Acute Category: Medical Code(s): I48.0 - Paroxysmal atrial fibrillation Plan 77-year-old male with protracted course of abdominal issues over the past month, presents to the ER with nausea and vomiting. Found to meet sepsis criteria with leukocytosis, persistent infection with pneumonia and C. difficile, and tachypnea. Discussed case with ER physician, request admission for IV antibiotics, p.o. antibiotics, IV fluids and further management. Medicine agreed to admit. Problems addressed as follows: Sepsis Pneumonia COPD -CT reviewed, left upper lobe airspace disease. -Initiated on IV antibiotics in the ER, continue cefepime and Flagyl -DuoNebs every 6 hours scheduled. Continue home Trelegy. -Supplemental oxygen as needed, goal saturation greater 90%. Currently on 2 L. -Blood culture obtained, sputum sample pending C. difficile colitis Increase vancomycin to 250 mg every 6 hours p.o. -Initiate probiotic and fiber supplement -Zofran 4 mg every 8 hours as needed for nausea -Imaging of abdomen did not show fulminant disease. Having bowel movements. CAD/PAD/hypertension: Continue metoprolol 50 g extended release daily, valsartan 40 mg daily, isosorbide mononitrate 30 mg daily, and Xarelto 20 mg daily. Will hold Lipitor 80 mg nightly due to GI symptoms Sleep disorder: Continue mirtazapine 7.5 mg nightly Full code Regular diet Xarelto 20 mg daily Plan - continue IV abx and monitor CBC, BMP, potential dc 1-2 days pending clinical imrpvement
[2023-04-03] MEDS: RIVAROXABAN 10MG TABLET 20 MG PO (18:00)
[2023-04-03] MEDS: IPRATROPIUM/ALBUTEROL 3 ML NEB IH ×2 (18:26→23:01)
[2023-04-03] MEDS: MIRTAZAPINE 15 MG TABLET 7.5 MG PO (21:48)
[2023-04-03] MEDS: PANTOPRAZOLE 40MG TABLET 40 MG PO (21:48)
[2023-04-03] MEDS: ATORVASTATIN 40MG TABLET 80 MG PO (21:50)
[2023-04-04] MEDS: METRONIDAZ/SOD CHL 500 MG/100 ML PIGGYBACK 100 MG IV ×2 (00:30→08:09)
[2023-04-04 04:00] VITALS: BP 113/57; PULSE 76; RESP 16; O2SAT 93; BMI 23.1
[2023-04-04 06:07] VITALS: PULSE 64; PULSE 67
[2023-04-04] MEDS: IPRATROPIUM/ALBUTEROL 3 ML NEB IH ×2 (06:07→11:20)
[2023-04-04] MEDS: FLUTICASONE/UMECLIDIN/VILANTER 100/62.5/25MCG INHALER 1 PUFF IH (06:07)
[2023-04-04 06:10] VITALS: O2SAT 92
[2023-04-04 08:00] VITALS: BP 127/67; PULSE 85; RESP 18; TEMP 36.7; O2SAT 91
[2023-04-04] MEDS: METOPROLOL SUCCINATE XL 50MG TABLET 50 MG PO (08:05)
[2023-04-04] MEDS: LACTOBACILLUS PROBIOTIC COMB CAPSULE 1 CAP PO (08:05)
[2023-04-04] MEDS: SACUBITRIL/VALSARTAN 24-26MG TABLET 1 EACH PO (08:05)
[2023-04-04] MEDS: ISOSORBIDE MONO 30MG TAB.ER.24H 30 MG PO (08:05)
[2023-04-04] MEDS: VANCOMYCIN HCL 50MG/ML 150ML KIT 250 MG PO ×2 (08:06→12:22)
[2023-04-04] MEDS: CALCIUM POLYCARBOPHIL 625MG TAB 625 MG PO (08:35)
[2023-04-04 10:05] LABS: Chloride 101 mmol/L (98-107)
[2023-04-04 10:06] LABS: Potassium 3.3 mmoL/L (3.5-5.1); Sodium 136 mmol/L (136-145)
[2023-04-04 10:09] LABS: Anion Gap 13.3 mEq/L (5-15); Blood Urea Nitrogen 15 mg/dl (9-20); Calcium 8.2 mg/dl (8.4-10.2); Carbon Dioxide 25 mmol/L (22.0-30.0); Creatinine Clearance Estimated 58 mL/min (50-200); Eosinophils # 0.2 K/mm3 (0.0-0.4); Eosinophils % 1.6 % (0.1-12.0); Estimated Glomerular Filt Rate 94 ml/min (>60); GFR (African American) 114 ML/MIN (>60); Glucose 120 mg/dl (74-100); Hematocrit 29.1 % (42.0-52.0); Hemoglobin 9.4 g/dL (14.1-18.0); Lymphocytes # 0.7 K/mm3 (0.7-4.5); Lymphocytes % 6.8 % (10-50); Mean Corpuscular HGB Conc 32.5 g/dL (31.8-35.4); Mean Corpuscular Hemoglobin 26.7 pg (27.0-31.2); Mean Corpuscular Volume 82.3 fl (80-94); Mean Platelet Volume 7.6 fl (7.4-10.4); Monocytes # 0.4 K/mm3 (0.1-1.0); Monocytes % 4.4 % (1.7-9.3); Neutrophils # 8.3 K/mm3 (1.8-7.8); Neutrophils % 87.1 % (37.0-80.0); Platelet Count 280 K/mm3 (142-424); Red Blood Count 3.53 M/mm3 (4.60-6.20); Red Cell Distribution Width 18.4 % (11.5-17.5); White Blood Count 9.5 K/mm3 (4.8-10.8)
[2023-04-04] MEDS: CEFEPIME HCL 2 GM in 0.9 % SODIUM CHLORIDE 100 ML IV (10:17)
[2023-04-04 10:18] LABS: MANUAL DIFFERENTIAL MANUAL DIFFERENTIAL (MANUAL DIFF)
[2023-04-04 11:20] VITALS: PULSE 76; PULSE 78
--- NOTE | 2023-04-04 11:38 | EXP.DC.SUM ---
General Admission date:: 04/02/23 Discharge date: 04/04/23 HPI HPI HPI: Mr. King is a 77-year-old male with history of lung cancer status postradiation 02/06/2023, paroxysmal A-fib, CAD, PAD, COPD. Recently underwent hemicolectomy with end-to-end anastomosis secondary to cecal perforation from ischemic colitis on 02/25/2023. Developed postop ileus with prolonged hospitalization. Had been on antibiotics during that timeframe. Recently over the past week has been diagnosed with C. difficile colitis and started on oral vancomycin 5 days ago. Presents to the ER today because of intractable nausea and vomiting. Having increased belching. Poor p.o. intake and inability to tolerate fluids today. Patient has noted a weight loss over the past week as well approximately 10 pounds. He has felt more weak and required significant assistance at home from his . Additionally his reports that over the past week he has developed more productive cough with thick [place] sputum. Increased shortness of breath. Workup in the ER significant for oxygen requirement of 2 L, chest imaging with pneumonia, elevated white count. Medicine consulted for admission. Patient noted to have a white count of 22,000, normal kidney function but elevated BUN at 34. Oxygen requirement of 2 L is new for him. States he is feeling better after arriving to the floor and having been started on nausea medication and IV fluids. Afebrile at this time. Denies any blood in vomit or stool. Has been having approximately 1 stool daily that is generally soft or loose. Hospital Course Hospital Course Hospital Course: Patient was seen and evaluated at the bedside on the day of discharge. Patient is stable for discharge. Patient wishes to be discharged. All patient questions were answered and patient was given time to ask questions. Patient was discharged in stable condition. Patient understands that she can return to ER in case of any sudden changes in health. Total time spent on DC - 38 mins 77-year-old male with protracted course of abdominal issues over the past month, presents to the ER with nausea and vomiting. Found to meet sepsis criteria with leukocytosis, persistent infection with pneumonia and C. difficile, and tachypnea. Discussed case with ER physician, request admission for IV antibiotics, p.o. antibiotics, IV fluids and further management. Medicine agreed to admit. Problems addressed as follows: Sepsis - resolved Pneumonia - improved COPD DC on PO levoflox and Falgyl f/u with PCP as OP in 1 -2 weeks C. difficile colitis Increase vancomycin to 250 mg every 6 hours p.o. DC on PO vanc for 10 days CAD/PAD/hypertension: Continue metoprolol 50 g extended release daily, valsartan 40 mg daily, isosorbide mononitrate 30 mg daily, and Xarelto 20 mg daily. Will hold Lipitor 80 mg nightly due to GI symptoms Sleep disorder: Continue mirtazapine 7.5 mg nightly Full code Regular diet Xarelto 20 mg daily Exam Data for Last 24 hours Vital signs and Labs for Last 24 Hours: Temp Pulse Resp BP Pulse Ox O2 Del Method O2 Flow Rate 98.0 F 78 18 127/67 91 L Room Air 3 04/04/23 08:00 04/04/23 11:20 04/04/23 08:00 04/04/23 08:00 04/04/23 08:00 04/04/23 08:00 04/04/23 06:10 Laboratory Results - last 24 hr 04/04/23 09:41: WBC 9.5 D, RBC 3.53 L, Hgb 9.4 L, Hct 29.1 L, MCV 82.3, MCH 26.7 L, MCHC 32.5, RDW 18.4 H, Plt Count 280, MPV 7.6, Neut % (Auto) 87.1 H, Lymph % (Auto) 6.8 L, [place] % (Auto) 4.4, Eos % (Auto) 1.6, Baso % (Auto) 0.0 L, Neut # (Auto) 8.3 H, Lymph # (Auto) 0.7, [place] # (Auto) 0.4, Eos # (Auto) 0.2, Baso # (Auto) 0.0, Sodium 136, Potassium 3.3 L, Chloride 101, Carbon Dioxide 25, Anion Gap 13.3, BUN 15, Creatinine 0.80, Estimated Creat Clear 58, Estimated GFR 94, Est GFR ( Amer) 114, Glucose 120 H, Calcium 8.2 L I & O for Last 24 hours: Intake & Output 04/01/23 04/02/23 04/03/23 04/04/23 23:59 23:59 23:59 23:59 Intake Total 1843 / 1843 200 / 200 Output Total 0 / 0 0 / 0 450 / 450 Balance 0 / 320 184 / 184 -250 / -250 Weight 63.503 kg 63.5 kg 65.363 kg Constitutional Constitutional: no acute distress *Routine HEENT Exam Head: Present normocephalic Eye: Present EOMI and PERRL ENT: Present mucous membranes moist *Routine Neck Exam Neck: Present supple; Absent lymphadenopathy *Routine Respiratory Exam Respiratory: Present CTA bilaterally *Routine Cardiovascular Exam Cardiovascular: Present RRR *Routine Abdominal Exam Abdominal: Present soft and normoactive bowel sounds; Absent tenderness *Routine Extremities Exam Extremities: Absent cyanosis, clubbing or edema *Routine Skin Exam Skin: Present warm; Absent rash *Routine Neurological Exam Neurological: Present alert and oriented X3 Results Data Completed and Pending Labs on day of discharge: Labs from last 24 hours 04/04/23 09:41 WBC 9.5 D RBC 3.53 L Hgb 9.4 L Hct 29.1 L MCV 82.3 MCH 26.7 L MCHC 32.5 RDW 18.4 H Plt Count 280 MPV 7.6 Neut % (Auto) 87.1 H Lymph % (Auto) 6.8 L [place] % (Auto) 4.4 Eos % (Auto) 1.6 Baso % (Auto) 0.0 L Neut # (Auto) 8.3 H Lymph # (Auto) 0.7 [place] # (Auto) 0.4 Eos # (Auto) 0.2 Baso # (Auto) 0.0 Sodium 136 Potassium 3.3 L Chloride 101 Carbon Dioxide 25 Anion Gap 13.3 BUN 15 Creatinine 0.80 Estimated Creat Clear 58 Estimated GFR 94 Est GFR ( Amer) 114 Glucose 120 H Calcium 8.2 L DS: Diagnosis Discharge Diagnosis (1) Sepsis: Status: Acute Code(s): A41.9 - Sepsis, unspecified organism (2) C. difficile colitis: Status: Acute Code(s): A04.72 - Enterocolitis due to Clostridium difficile, not specified as recurrent (3) Pneumonia: Status: Acute Code(s): J18.9 - Pneumonia, unspecified organism (4) Respiratory failure: Status: Acute Code(s): J96.90 - Respiratory failure, unspecified, unspecified whether with hypoxia or hypercapnia (5) CAD (coronary artery disease): Status: Acute Code(s): I25.10 - Atherosclerotic heart disease of [place] coronary artery without angina pectoris Qualifiers: Coronary Disease-Associated Artery/Lesion type: bypass graft [place] vs. transplanted heart: [place] heart Associated angina: without angina Qualified Code(s): I25.810 - Atherosclerosis of coronary artery bypass graft(s) without angina pectoris (6) PAD (peripheral artery disease): Status: Acute Code(s): I73.9 - Peripheral vascular disease, unspecified (7) COPD (chronic obstructive pulmonary disease): Status: Chronic Code(s): J44.9 - Chronic obstructive pulmonary disease, unspecified Qualifiers: COPD type: unspecified COPD Qualified Code(s): J44.9 - Chronic obstructive pulmonary disease, unspecified (8) Hx of coronary artery bypass graft: Status: Chronic Code(s): Z95.1 - Presence of aortocoronary bypass graft (9) Paroxysmal atrial fibrillation: Status: Acute Code(s): I48.0 - Paroxysmal atrial fibrillation Meds Home Medications and Allergies Home Medications Medication Instructions Recorded Confirmed Type albuterol sulfate 90 mcg/actuation 2 puff inhalation QIDP PRN 08/27/17 04/02/23 History aerosol inhaler (Ventolin HFA) Shortness Of Breath folic acid 1 mg tablet 1 mg PO DAILY Supplement 08/27/17 04/02/23 History fluticasone propionate 50 2 spray intranasal DAILY Allergies 08/18/22 04/02/23 History mcg/actuation nasal spray,suspension (Flonase Allergy Relief) mirtazapine 15 mg tablet 7.5 mg PO HS 09/01/22 04/02/23 History multivitamin 1 tab PO DAILY Supplement 09/25/22 04/02/23 History fluticasone fur. 100 mcg-umeclid 1 inh inhalation DAILY 90 days #90 01/18/23 04/02/23 Rx 62.5 mcg-vilant 25 mcg ea inhalat.powder (Trelegy Ellipta) montelukast 10 mg tablet 10 mg PO HS 02/25/23 04/02/23 History potassium chloride 10 mEq 10 meq PO DAILY 02/25/23 04/02/23 History tablet,extended release docusate sodium 100 mg capsule 100 mg PO BID PRN Constipation 30 03/07/23 04/02/23 Rx days #60 caps pantoprazole 40 mg tablet,delayed 40 mg PO DAILY Acid reflux #90 tabs 03/12/23 04/02/23 Rx release atorvastatin 80 mg tablet 80 mg PO HS #30 tabs 04/02/23 04/03/23 Rx isosorbide mononitrate 30 mg 30 mg PO DAILY #90 tabs 04/02/23 04/03/23 Rx tablet,extended release 24 hr metoprolol succinate 50 mg 50 mg PO DAILY #90 tabs 04/02/23 04/03/23 Rx tablet,extended release 24 hr rivaroxaban 20 mg tablet 20 mg PO HS #30 tabs 04/02/23 04/03/23 Rx spironolactone 25 mg tablet 25 mg PO DAILY 30 days #30 tabs 04/02/23 04/03/23 Rx levofloxacin 250 mg tablet 250 mg PO Q24H #10 tabs 04/04/23 Rx metronidazole 500 mg tablet 500 mg PO TID 10 days #30 tabs 04/04/23 Rx sacubitril 24 mg-valsartan 26 mg 1 tab PO BID 30 days #60 tabs 04/04/23 Rx tablet (Entresto) vancomycin 50 mg/mL oral solution 250 mg (5 mL) PO QID 10 days #200 04/04/23 Rx (Firvanq) mL New Prescriptions to Start Prescriptions: levofloxacin Danielito,Abraham metronidazole Danielito,Abraham sacubitril-valsartan [Entresto] Danielito,Abraham vancomycin [Firvanq] Abraham Esteves Allergies Allergy/AdvReac Type Severity Reaction Status Date / Time Penicillins Allergy Intermediate I-ITCHING; Verified 04/02/23 09:45 SWELLING Antihistamines - Ethanolamine Allergy Unknown Unknown Verified 04/02/23 09:45 allergy reaction [place] nut Allergy Rash Verified 04/02/23 09:45 doxycycline AdvReac Mild Rash Verified 04/02/23 09:45 Discharge Plan Disposition Patient Disposition: Home, Self-Care Condition: Good Discharge Order Discharge Orders: Discharge Order (Routine); Ordered 04/04/23 Ordered By: Abraham Esteves Follow up Plan Follow up with: Curtis Montes MD [Primary Care Provider] - 04/10/23 10:45 am (appointment with Joan ) Prescriptions/Medication Reconciliation: New vancomycin [Firvanq] 50 mg/mL Recon Soln 250 mg PO QID 10 Days Qty: 200 0RF Entresto 24-26 mg Tablet 1 tab PO BID 30 Days Qty: 60 0RF metronidazole 500 mg tablet 500 mg PO TID 10 Days Qty: 30 0RF levofloxacin 250 mg tablet 250 mg PO Q24H Qty: 10 0RF Continued Trelegy Ellipta 100-62.5-25 mcg blister with device 1 inh inhalation DAILY 90 Days Qty: 90 2RF folic acid 1 mg tablet 1 mg PO DAILY albuterol sulfate [Ventolin HFA] 90 mcg/actuation HFA aerosol inhaler 2 puff IH QIDP PRN (Reason: Shortness Of Breath) multivitamin Tablet 1 tab PO DAILY pantoprazole 40 mg tablet,delayed release (DR/EC) 40 mg PO DAILY Qty: 90 1RF Patient Comments: TAKE 1 TABLET BY MOUTH ONCE DAILY atorvastatin 80 mg tablet 80 mg PO HS Qty: 30 5RF isosorbide mononitrate 30 mg tablet extended release 24 hr 30 mg PO DAILY Qty: 90 5RF metoprolol succinate 50 mg tablet extended release 24 hr 50 mg PO DAILY Qty: 90 3RF rivaroxaban 20 mg tablet 20 mg PO HS Qty: 30 5RF spironolactone 25 mg tablet 25 mg PO DAILY 30 Days Qty: 30 0RF fluticasone propionate [Flonase Allergy Relief] 50 mcg/actuation spray,suspension 2 spray intranasal DAILY Rx Instructions: administer into each nostril potassium chloride 10 mEq tablet extended release 10 meq PO DAILY Patient Comments: TAKE 1 TABLET BY MOUTH ONCE DAILY montelukast 10 mg tablet 10 mg PO HS Patient Comments: TAKE 1 TABLET BY MOUTH ONCE DAILY docusate sodium 100 mg Capsule 100 mg PO BID PRN (Reason: Constipation) 30 Days Qty: 60 0RF mirtazapine 15 mg tablet 7.5 mg PO HS Discontinued vancomycin 250 mg capsule 125 mg PO QID 10 Days Qty: 20 0RF valsartan 40 mg tablet 40 mg PO DAILY Qty: 30 2RF Problem Reconciliation Problems Reviewed?: Yes Patient Discharge Instructions ACTIVITY: Ambulate as tolerated DIET: continue same diet Patient Instructions: DI for Pneumonia -- Adult, DI for Sepsis -- Adult, DI for Colitis, Clostridium difficile Infection Providers Primary Care Provider: Curtis Montes Admit Provider: Lawrence Fitzgerald Attending Provider: Lawrence Fitzgerald
[2023-04-04 11:54] LABS: Eosinophils % 1 % (0-3); Lymphocytes % 19 % (10-50); Monocytes % 3 % (2-9); Neutrophils % 77 % (42-76); Platelet Estimate Normal; RBC Morphology Normal; Total Cells Counted 100
[2023-04-04] MEDS: POTASSIUM CHLORIDE 20MEQ TAB 20 MEQ PO (12:22)
== END 2023-04-04 01:43 | disposition home or self-care (01) | DRG 871 ==
LOC: ER 13:09 → 2ND 13:42
PROVIDERS: Internal Medicine; Admitting Provider Internal Medicine Adolescent Medicine; Emergency Provider Emergency Medicine; PCP Internal Medicine Adolescent Medicine; Visit Provider Internal Medicine Adolescent Medicine
DX: A41.9 Sepsis, unspecified organism (principal); J18.9 Pneumonia, unspecified organism; J96.90 Respiratory failure, unspecified, unspecified whether with hypoxia or hypercapnia; A04.72 Enterocolitis due to Clostridium difficile, not specified as recurrent; J44.0 Chronic obstructive pulmonary disease with (acute) lower respiratory infection; I48.0 Paroxysmal atrial fibrillation; I25.10 Atherosclerotic heart disease of native coronary artery without angina pectoris; I73.9 Peripheral vascular disease, unspecified; Z95.1 Presence of aortocoronary bypass graft; I10 Essential (primary) hypertension
CPT/HCPCS: 36415; 71275; 74177; 80048; 80053; 81001; 82803; 83605; 83690; 83735; 84100; 84484; 85007; 85025; 87040; 87070; 87205; 87636; 93005; 94640; 99285; G0463; J2405; Q9967

== ENCOUNTER 2023-04-10 11:39 | Outpatient (CLI) | payer MEDICARE, OTHER, SELFPAY ==
[2023-04-10 11:48] VITALS: BMI 21.6
[2023-04-10 12:05] LABS: Basophils % 0.2 % (0.1-2.0); Eosinophils # 0.1 K/mm3 (0.0-0.4); Eosinophils % 1.8 % (0.1-12.0); Hemoglobin 12.1 g/dL (14.1-18.0); Lymphocytes # 0.8 K/mm3 (0.7-4.5); Lymphocytes % 10.4 % (10-50); Mean Corpuscular HGB Conc 31.8 g/dL (31.8-35.4); Mean Corpuscular Volume 81.7 fl (80-94); Monocytes # 0.4 K/mm3 (0.1-1.0); Monocytes % 5.1 % (1.7-9.3); Neutrophils # 6.2 K/mm3 (1.8-7.8); Neutrophils % 82.6 % (37.0-80.0); Platelet Count 381 K/mm3 (142-424); Red Blood Count 4.65 M/mm3 (4.60-6.20); Red Cell Distribution Width 18.8 % (11.5-17.5); White Blood Count 7.6 K/mm3 (4.8-10.8)
[2023-04-10 12:12] VITALS: BP 140/72; PULSE 77; RESP 18; TEMP 36.9; O2SAT 97
[2023-04-10] MEDS: ONDANSETRON 4MG/2ML VIAL 4 MG IV (12:12)
[2023-04-10] MEDS: 0.9 % SODIUM CHLORIDE 1000ML 1,000 ML 999 ML IV (12:12)
[2023-04-10 12:16] LABS: Chloride 100 mmol/L (98-107); Potassium 5.6 mmoL/L (3.5-5.1); Sodium 132 mmol/L (136-145)
[2023-04-10 12:19] LABS: Anion Gap 16.6 mEq/L (5-15); Blood Urea Nitrogen 16 mg/dl (9-20); Calcium 8.6 mg/dl (8.4-10.2); Carbon Dioxide 21 mmol/L (22.0-30.0); Creatinine Clearance Estimated 54 mL/min (50-200); Estimated Glomerular Filt Rate 94 ml/min (>60); GFR (African American) 114 ML/MIN (>60); Glucose 127 mg/dl (74-100); Magnesium 1.8 mg/dl (1.6-2.3)
[2023-04-10 13:20] VITALS: BP 141/74; PULSE 76; RESP 18; TEMP 37; O2SAT 97
== END 2023-04-10 13:25 | disposition home or self-care (01) ==
LOC: INF 11:40
PROVIDERS: PCP Internal Medicine Adolescent Medicine; Visit Provider Internal Medicine Adolescent Medicine
DX: A04.72 Enterocolitis due to Clostridium difficile, not specified as recurrent (principal); E86.0 Dehydration; R11.2 Nausea with vomiting, unspecified
CPT/HCPCS: 80048; 83735; 85025; 96360; J2405

== ENCOUNTER 2023-04-13 10:33 | Outpatient (CLI) | payer MEDICARE, OTHER, SELFPAY ==
[2023-04-13 10:38] VITALS: BMI 21.3
--- NOTE | 2023-04-13 10:41 | PC.NURSE ---
cbc and bmp drawn per MD order via butterfly needle in right hand. needle removed and coban applied. pt tolerated well.
[2023-04-13 10:55] LABS: Basophils % 0.3 % (0.1-2.0); Eosinophils # 0.3 K/mm3 (0.0-0.4); Eosinophils % 3.4 % (0.1-12.0); Hematocrit 39.1 % (42.0-52.0); Hemoglobin 12.4 g/dL (14.1-18.0); Lymphocytes % 11.9 % (10-50); Mean Corpuscular HGB Conc 31.7 g/dL (31.8-35.4); Mean Corpuscular Hemoglobin 26.2 pg (27.0-31.2); Mean Corpuscular Volume 82.7 fl (80-94); Monocytes # 0.4 K/mm3 (0.1-1.0); Monocytes % 5.2 % (1.7-9.3); Neutrophils # 6.7 K/mm3 (1.8-7.8); Neutrophils % 79.2 % (37.0-80.0); Platelet Count 389 K/mm3 (142-424); Red Blood Count 4.72 M/mm3 (4.60-6.20); Red Cell Distribution Width 18.5 % (11.5-17.5); White Blood Count 8.5 K/mm3 (4.8-10.8)
[2023-04-13 10:58] LABS: Chloride 102 mmol/L (98-107); Potassium 3.7 mmoL/L (3.5-5.1); Sodium 137 mmol/L (136-145)
[2023-04-13 11:01] LABS: Anion Gap 16.7 mEq/L (5-15); Blood Urea Nitrogen 14 mg/dl (9-20); Calcium 8.9 mg/dl (8.4-10.2); Carbon Dioxide 22 mmol/L (22.0-30.0); Creatinine Clearance Estimated 53 mL/min (50-200); Estimated Glomerular Filt Rate 94 ml/min (>60); GFR (African American) 114 ML/MIN (>60); Glucose 109 mg/dl (74-100)
== END 2023-04-13 10:48 | disposition home or self-care (01) ==
LOC: LAB 10:34
PROVIDERS: PCP Nurse Practitioner Family; Visit Provider Nurse Practitioner Family
DX: A04.72 Enterocolitis due to Clostridium difficile, not specified as recurrent (principal); E87.5 Hyperkalemia; E87.1 Hypo-osmolality and hyponatremia
CPT/HCPCS: 36415; 80048; 85025

== ENCOUNTER 2023-05-02 10:29 | Outpatient (CLI) | payer MEDICARE, OTHER, SELFPAY ==
--- NOTE | 2023-05-02 10:34 | CT_ITS ---
FINAL REPORT TECHNIQUE: After the administration of intravenous contrast, axial images through the chest were performed by computed tomography.This study was performed with techniques to keep radiation doses as low as reasonably achievable, (ALARA). Individualized dose reduction techniques using automated exposure control or adjustment of mA and/or kV according to the patient''s size were employed. CLINICAL HISTORY: LUNG CANCER COMPARISON: 04/02/2023 and 01/03/2023 FINDINGS: Mild mediastinal adenopathy is again identified. AP window node measures 16 mm, stable since prior. Note is made of moderate emphysema. There is persistent but partially improved posterior left upper lobe consolidation. Left suprahilar consolidation is identified, favor posttreatment change. There are persistent left lower lobe nodules. Nodule in the superior segment of the left lower lobe measures 9 mm, previously measured 8 mm. Other left lower lobe nodules are partially improved. Limited images of the upper abdomen demonstrate small hepatic cysts and bilateral renal cysts. IMPRESSION: Partially improved posterior left upper lobe pneumonia. Slightly improved nodules in the superior segment of the left lower lobe which are nonspecific but worrisome for neoplasm. Other left lower lobe nodules are partially improved. Recommend additional follow-up CT. Reviewed, Interpreted and Dictated by Karri Roldan III, MD Transcribed by Bernadette Nolasco Authenticated and [facility]
[2023-05-02] MEDS: SODIUM CHLORIDE 0.9% 10ML SYR (RAD ONLY) 10 ML IV (11:36)
[2023-05-02] MEDS: IOPAMIDOL-370 (76%);100ML BOTTLE 75 ML IV (11:36)
== END 2023-05-02 23:59 ==
LOC: RAD 10:30
PROVIDERS: PCP Nurse Practitioner Family; Visit Provider Internal Medicine Medical Oncology
DX: C34.92 Malignant neoplasm of unspecified part of left bronchus or lung (principal)
CPT/HCPCS: 71260; Q9967

== ENCOUNTER 2023-05-31 06:43 | Inpatient (IN) | payer MEDICARE, OTHER, SELFPAY ==
[2023-05-31] VITALS (28 sets, daily range): BP systolic 103–153; BP diastolic 45–76; PULSE 78–97; RESP 13–23; TEMP 36.3–36.8; O2SAT 89–100; BMI 21.3; BMI 21.7
[2023-05-31] MEDS: ONDANSETRON 4MG/2ML VIAL 4 MG IV (07:11)
--- NOTE | 2023-05-31 07:11 | CT_ITS ---
FINAL REPORT CLINICAL HISTORY: abd pain, melena, h/o ischemic bowel COMPARISON: Abdominal CT dated 04/02/2023 FINDINGS: CTA ABDOMEN AND PELVIS: There are diffuse severe vascular calcifications noted in the abdomen and pelvis, which makes evaluation more difficult. There is severe calcified plaque noted in the abdominal aorta. Severe calcified plaque is present involving the proximal celiac axis with high-grade stenosis. There is also heavily calcified plaque involving the origin of the superior mesenteric artery, with several proximal stenoses of at least 70%. The more distal superior mesenteric artery is of small caliber. The proximal inferior mesenteric artery is patent, but distal to the origin the JAKOB is very small caliber. There is heavily calcified plaque involving the proximal renal arteries bilaterally, with moderate to severe stenosis. There are bilateral common and external iliac stents present, which are patent. There is severe calcified plaque involving the iliac arteries with multiple areas of stenosis. There is a right femoral artery graft, which is patent. ABDOMEN AND PELVIS: There are multiple nodules present in the lung bases, also seen on the prior CT of March 2023, partially improved on the left side. These are likely inflammatory or infectious, and may be related to mycobacterial or fungal disease. The liver, spleen, and pancreas are unchanged in appearance and unremarkable. Multiple bilateral renal cysts are once again identified. There is a small left adrenal nodule present, favor adenoma, stable. There is once again evidence noted of prior surgery involving the right colon. No new mass or free fluid is identified in the abdomen or pelvis. Extensive sigmoid diverticulosis is once again identified without acute inflammatory change. IMPRESSION: Diffuse severe vascular calcifications involving the proximal celiac axis, origin of the superior mesenteric artery, proximal JAKOB, bilateral renal arteries, stable since the prior CT of March. Bilateral common and external arterial stents, patent. There is also a right femoral arterial graft, also patent. Reviewed, Interpreted and Dictated by Karri Roldan III, MD Transcribed by Loreto Gonzalez Authenticated and [facility]
[2023-05-31] MEDS: LACTATED RINGERS 1000ML 1,000 ML 999 ML IV (07:15)
--- NOTE | 2023-05-31 07:16 | ED_ITS ---
Discharge Plan Disposition Patient Disposition: Admitted Prescriptions Prescriptions: No Action folic acid 1 mg tablet 1 mg PO DAILY albuterol sulfate [Ventolin HFA] 90 mcg/actuation HFA aerosol inhaler 2 puff IH QIDP PRN (Reason: Shortness Of Breath) multivitamin Tablet 1 tab PO DAILY Trelegy Ellipta 100-62.5-25 mcg blister with device 1 inh inhalation DAILY 90 Days Qty: 90 2RF valsartan 40 mg tablet 40 mg PO DAILY oxycodone 10 mg tablet 10 mg PO BID PRN (Reason: pain (scale score 7-10)) Qty: 60 0RF pantoprazole 40 mg tablet,delayed release (DR/EC) 40 mg PO DAILY Qty: 90 1RF Patient Comments: TAKE 1 TABLET BY MOUTH ONCE DAILY atorvastatin 80 mg tablet 80 mg PO HS Qty: 30 5RF isosorbide mononitrate 30 mg tablet extended release 24 hr 30 mg PO DAILY Qty: 90 5RF metoprolol succinate 50 mg tablet extended release 24 hr 50 mg PO DAILY Qty: 90 3RF rivaroxaban 20 mg tablet 20 mg PO HS Qty: 30 5RF spironolactone 25 mg tablet 25 mg PO DAILY 90 Days Qty: 90 3RF aspirin [Adult Aspirin Regimen] 81 mg tablet,delayed release (DR/EC) 81 mg PO DAILY Qty: 30 5RF fluticasone propionate [Flonase Allergy Relief] 50 mcg/actuation spray,suspension 2 spray intranasal DAILY Rx Instructions: administer into each nostril montelukast 10 mg tablet 10 mg PO HS Patient Comments: TAKE 1 TABLET BY MOUTH ONCE DAILY mirtazapine 15 mg tablet 7.5 mg PO HS Referrals Follow up/Referrals: Curtis Montes MD [Primary Care Provider] - See instructions Clinical Impressions Clinical Impression: Nausea vomiting and diarrhea, Acute upper gastrointestinal bleeding, Acute blood loss anemia, Type 2 WI (myocardial infarction) Instructions Patient Instructions: DI for Diarrhea and Traveler's Diarrhea -- Adult, DI for Diarrhea and Traveler's Diarrhea -- Child, DI for Nausea -- Adult, DI for Nausea -- Child Discharge ED Provider: Christianne Ling General Adult HPI General Chief complaint: Nausea/Vomiting/Diarrhea Stated complaint: Vomiting,Diarrhea Time Seen by Provider: 05/31/23 07:06 Mode of Arrival: Ambulatory Source of Information: Patient Limitations: No Limitations Description of Symptoms (Recalled from ER Triage Doc. by RN): Patient states he finished treatment for cdiff a few days ago started having large loose BM yesterday along with nausea and vomiting of dark emesis. History of Present Illness HPI narrative: Patient is a 78-year-old male presents today with nausea vomiting diarrhea. St ates that his vomit and his stool has been black. Patient was diagnosed with ischemic colitis in February 2023 ultimately had a colectomy and had this complicated by C. difficile colitis for which she has recently completed therapy. Surgery was done initially by Dr. Dasilva but he has been following Dr. Alarcon since that surgical intervention. Patient has been doing well up until few days ago when symptoms stated above worsen. No history of any liver disease he has not been taking any NSAIDs that he is aware of no history of peptic ulcer disease. Does have some abdominal pain in the right lower quadrant but it is not severe. No sudden component of this abdominal discomfort. Does appear more pale according to his is at the bedside. No fevers chills or any other symptoms. She did bring in a stool sample for testing. Related Data Home Medications Medication Instructions Recorded Confirmed albuterol sulfate 90 mcg/actuation 2 puff inhalation QIDP PRN 08/27/17 05/24/23 aerosol inhaler (Ventolin HFA) Shortness Of Breath folic acid 1 mg tablet 1 mg PO DAILY Supplement 08/27/17 05/24/23 fluticasone propionate 50 2 spray intranasal DAILY Allergies 08/18/22 05/24/23 mcg/actuation nasal spray,suspension (Flonase Allergy Relief) mirtazapine 15 mg tablet 7.5 mg PO HS 09/01/22 05/24/23 multivitamin 1 tab PO DAILY Supplement 09/25/22 05/24/23 montelukast 10 mg tablet 10 mg PO HS 02/25/23 05/24/23 valsartan 40 mg tablet 40 mg PO DAILY 04/24/23 05/24/23 Previous Rx's Medication Instructions Recorded pantoprazole 40 mg tablet,delayed 40 mg PO DAILY Acid reflux #90 tabs 03/12/23 release atorvastatin 80 mg tablet 80 mg PO HS #30 tabs 04/02/23 isosorbide mononitrate 30 mg 30 mg PO DAILY #90 tabs 04/02/23 tablet,extended release 24 hr metoprolol succinate 50 mg 50 mg PO DAILY #90 tabs 04/02/23 tablet,extended release 24 hr rivaroxaban 20 mg tablet 20 mg PO HS #30 tabs 04/02/23 oxycodone 10 mg tablet 10 mg PO BID PRN pain (scale score 04/24/23 7-10) #60 tabs spironolactone 25 mg tablet 25 mg PO DAILY 90 days #90 tabs 05/04/23 fluticasone fur. 100 mcg-umeclid 1 inh inhalation DAILY 90 days #90 05/15/23 62.5 mcg-vilant 25 mcg ea inhalat.powder (Trelegy Ellipta) aspirin 81 mg tablet,delayed 81 mg PO DAILY #30 tabs 05/23/23 release (Adult Aspirin Regimen) Allergies Allergy/AdvReac Type Severity Reaction Status Date / Time Penicillins Allergy Intermediate I-ITCHING; Verified 05/24/23 10:49 SWELLING Antihistamines - Ethanolamine Allergy Unknown Unknown Verified 05/24/23 10:49 allergy reaction [facility] Allergy Rash Verified 05/24/23 10:49 doxycycline AdvReac Mild Rash Verified 05/24/23 10:49 [facility] Disclaimer: The information contained in this section may have been updated after the patient was seen, as this information can be updated by other users. Medical History Abdominal bruit Abnormal ankle brachial index (JUSTICE) Allergic rhinitis C. difficile colitis CAD (coronary artery disease) Cardiac murmur Carotid artery disease Cecum perforation Chronic cough Claudication Claudication COPD (chronic obstructive pulmonary disease) COPD exacerbation COPD mixed type Dyspnea on exertion H/O: lung cancer Hearing Loss Hearing loss, bilateral Hemoptysis Hyperlipidemia Hypertension Impacted cerumen Incurved toenail Laceration of right ear canal Lung nodule Non-healing wound Nonhealing nonsurgical wound PAD (peripheral artery disease) Pain around toenail, left foot Paroxysmal atrial fibrillation Peripheral arterial disease Pneumonia PVD (peripheral vascular disease) Respiratory failure Sepsis Small cell lung cancer Smoker Smoking greater than 30 pack years Surgical History H/O angioplasty H/O endarterectomy History of cardiac cath History of carpal tunnel release Hx of coronary artery bypass graft S/P femoral-popliteal bypass surgery S/P right hemicolectomy Status post insertion of iliac artery stent Family History Other Asthma Social History Smoking Status: Never smoker alcohol intake: current substance use type: denies use current occupational status: retired Travel in the last 8 weeks: None household members: spouse housing: house marital status: caffeine: Yes ROS Obtained: Yes All systems reviewed & no additional complaints except as documented Physical Exam General General appearance: other (Ill-appearing and pale) Respiratory Respiratory exam: Present normal lung sounds bilaterally Cardiovascular Cardiovascular exam: Present tachycardia Abdominal Exam Abdominal exam: Present soft and tenderness (Right lower quadrant tenderness to palpation but abdomen is soft without any rebound or guarding) Neurological Exam Neurological exam: Present alert and oriented X3 Medical Decision Making Ricardo Inquiry Pt receiving controlled substance: No Ricardo was queried for this patient: No Vital Signs: 05/31/23 06:58 05/31/23 07:30 05/31/23 08:10 Temperature 98.1 F Temperature Source Oral Pulse Rate 94 H 91 H Pulse Rate [Left Radial] 97 H Respiratory Rate 18 18 16 TAR Vitals Timing Blood Pressure 153/76 H 103/60 L Blood Pressure [Right Arm] 144/71 H Blood Pressure Mean 101 78 Blood Pressure Mean [Right Arm] 95 Blood Pressure Source Blood Pressure Position 02 Sat by Pulse Oximetry 100 98 98 Oxygen Delivery Method Room Air 05/31/23 08:18 05/31/23 09:38 05/31/23 08:38 Temperature 98.0 F Temperature Source Oral Pulse Rate 94 H 83 89 Pulse Rate [Left Radial] Respiratory Rate 16 16 13 TAR Vitals Timing Pre-Blood Vitals Blood Pressure 115/45 L 136/58 L 135/56 L Blood Pressure [Right Arm] Blood Pressure Mean 68 84 Blood Pressure Mean [Right Arm] Blood Pressure Source Automatic Cuff Blood Pressure Position Supine 02 Sat by Pulse Oximetry 98 93 L 91 L Oxygen Delivery Method 05/31/23 09:01 Temperature Temperature Source Pulse Rate Pulse Rate [Left Radial] Respiratory Rate 19 TAR Vitals Timing Blood Pressure 150/59 H Blood Pressure [Right Arm] Blood Pressure Mean Blood Pressure Mean [Right Arm] Blood Pressure Source Blood Pressure Position 02 Sat by Pulse Oximetry 93 L Oxygen Delivery Method Lab Data Lab results reviewed: Yes I reviewed the patient's lab results. Lab Results 05/31/23 07:00: Stool Occult Blood Positive A 05/31/23 07:09: WBC 9.7, RBC 2.47 L, Hgb 6.8 L*, Hct 20.2 L*, MCV 81.6, MCH 27.3, MCHC 33.5, RDW 22.3 H, Plt Count 219, MPV 7.7, Neut % (Auto) 83.0 H, Lymph % (Auto) 11.2, [place] % (Auto) 5.4, Eos % (Auto) 0.3, Baso % (Auto) 0.1, Neut # (Auto) 8.1 H, Lymph # (Auto) 1.1, [place] # (Auto) 0.5, Eos # (Auto) 0.0, Baso # (Auto) 0.0, PT 23.6 H, INR 2.31 H, APTT 37.0 H, Sodium 137, Potassium 3.9, Chloride 106, Carbon Dioxide 23, Anion Gap 11.9, BUN 41 H, Creatinine 0.80, Estimated Creat Clear 52, Estimated GFR 94, Est GFR ( Amer) 113, Glucose 136 H, Calcium 8.5, Phosphorus 4.0, Magnesium 1.8, Total Bilirubin 1.0, AST 489 H*, ALT 294 H, Alkaline Phosphatase 81, Troponin I 0.05 H, Total Protein 6.4, Albumin 3.3 L, Globulin 3.1, Albumin/Globulin Ratio 1.1, Lipase 94 05/31/23 07:40: Blood Type AB Positive, Antibody Screen Negative, Crossmatch (AHG) See Detail 05/31/23 07:09 05/31/23 07:09 Orders (Tests/Meds): ED MEDICATIONS Generic Name Dose Route Start Last Admin Trade Name Freq PRN Reason Stop Dose Admin Sodium Chloride 250 mls @ 25 mls/hr 05/31/23 07:30 Sod Chlor 0.9% 250ml Bag IV 06/01/23 07:29 .Q10H RADHA Discontinued Medications Generic Name Dose Route Start Last Admin Trade Name Freq PRN Reason Stop Dose Admin Lactated Ringer's 1,000 mls @ 999 mls/hr 05/31/23 07:15 05/31/23 07:15 Lactated Ringer's 1000 Ml Bag IV 05/31/23 08:15 999 mls/hr .Q1H1M RADHA Administration Iopamidol 100 ml 05/31/23 08:07 05/31/23 08:09 Iopamidol-370 (76%);100ml Bottle IV 05/31/23 08:08 100 ml ONCE ONE Administration Morphine Sulfate 2 mg 05/31/23 07:11 05/31/23 08:46 Morphine 4mg/Ml Syringe IV 05/31/23 07:12 2 mg ONCE ONE Administration Ondansetron HCl 4 mg 05/31/23 07:11 05/31/23 07:11 Ondansetron 4mg/2ml Vial IV 05/31/23 07:12 4 mg ONCE ONE Administration Prothrombin Complex Concent (Human) 2,000 unit 05/31/23 09:00 05/31/23 09:27 Kcentra 500 Unit Vial IV 05/31/23 09:01 2,000 unit ONCE ONE Administration Sodium Chloride 50 ml 05/31/23 08:07 05/31/23 08:09 0.9 % Sodium Chloride 50 Ml Vial IV 05/31/23 08:08 50 ml ONCE ONE Administration Sodium Chloride 10 ml 05/31/23 08:07 05/31/23 08:09 Sodium Chloride 0.9% 10ml Syr (Rad Only) IV 05/31/23 08:08 10 ml ONCE ONE Administration ORDERS Category Date Time Status Transfuse RBC's [Red Blood Cells] Stat [facility] 05/31/23 07:40 Results Type and Screen Stat [facility] 05/31/23 07:[address] angio abdomen pelvis Stat Cat Scan 05/31/23 07:11 Taken CBC w/Auto Diff [Complete Blood Count Auto Diff] Stat Lab 05/31/23 07:09 Completed CMP [Comprehensive Metabolic Panel] Stat Lab 05/31/23 07:09 Completed Diarrhea 23 Panel, PCR Stat Lab 05/31/23 07:13 Ordered Lipase Stat Lab 05/31/23 07:09 Completed Magnesium Stat Lab 05/31/23 07:09 Completed Occult Blood,Stool Stat Lab 05/31/23 07:00 Completed Occult Blood,Stool Stat Lab 05/31/23 07:13 Ordered PT/PTT Stat Lab 05/31/23 07:09 Completed Phosphorous Stat Lab 05/31/23 07:09 Completed Trop I [Troponin I] Stat Lab 05/31/23 07:09 Completed Troponin I Q3H Lab 05/31/23 11:15 Ordered Troponin I Q3H Lab 05/31/23 14:15 Ordered ECG Data Tracing #1: I reviewed this ECG and interpreted as documented below: Ventricular rate of 91 there is diffuse subendocardial ischemia with ST depressions in the anterior lateral precordial leads in the high lateral precordial leads there is no definitive ST elevations anywhere some mild ST elevations in aVR is unlikely that this is a left main occlusion in this particular setting most likely demand ischemia secondary to patient's ongoing blood losses and critical anemia. No other conduction abnormalities noted there is normal axis. Medical Decision Narrative: Patient is a 78-year-old male with nausea vomiting diarrhea with emesis and stool that are black. Primary concern is an upper gastrointestinal bleed. He is not on any NSAIDs and has no history of esophageal varices or liver disease. Will send out type and screen with anticipation of possible blood transfusion as appears pale. Will test the stool for blood and sent once again. Additional concerns with his history of ischemic colitis would be that he has ischemic bowel again and will get a CT angio of the abdomen and pelvis for further evaluation of this. His abdominal exam is reassuring and this is less likely than his previous presentation. Lastly this could be a viral etiology and gastroenteritis presentation. IV fluids pain medicine nausea medicine have been administered while his workup is pending and I will reassess this patient once that is complete. Reassessment 9:44 AM patient did have some chest pain that developed while in th e emergency department see EKG read which did show subendocardial ischemia the symptoms are improving with administration of blood. This is consistent with a type II WI no evidence of ST elevation WI and no concern at the moment for type I WI. Given the fact that patient had significant ongoing bleeding and blood loss with a hemoglobin that went from 12 down to less than 7 this is a profound loss of blood over short period time and all of his symptoms are secondary to this blood loss. Abdominal exam is relatively benign with some mild tenderness CTA was performed which I personally interpreted which shows no acute abnormality there are some calcifications but no obvious extravasation there is chronic and severe and stable vascular calcifications and multiple mesenteric vessels. However given the fact that the patient had a life-threatening gastrointestinal bleed I discussed the risk and benefits of reversal of his rivaroxaban with his family and we decided but shared decision making to reversed using Kcentra. This was administered in the emergency department. Patient significantly proved from a clinical standpoint looks much better after several hours of observation he has had 1 unit of emergency blood but has been given 3 more units have been typed and crossed. 1 L of normal saline also administered as well. Patient's vital signs improved heart rate now in the 80s blood pressure is normal. I discussed the case with Dr. Lockwood and with the patient and the patient would like to stay here for further evaluation and treatment will close the loop with Dr. Lockwood and admit the patient to hospital medicine for further evaluation and treatment. Critical Care Critical Care Time Critical Care Time: Yes Attestation: On 05/31/23, the high probability of a clinically significant, sudden or life threatening deterioration of the following system(s) required my full and direct attention, intervention and personal management. The time I documented below is in addition to time spent performing reported procedures but includes the following listed in this critical care notation. Total Time Total Critical Care Time: 65
[2023-05-31 07:19] LABS: Basophils % 0.1 % (0.1-2.0); Eosinophils % 0.3 % (0.1-12.0); Lymphocytes # 1.1 K/mm3 (0.7-4.5); Lymphocytes % 11.2 % (10-50); Mean Corpuscular HGB Conc 33.5 g/dL (31.8-35.4); Mean Corpuscular Hemoglobin 27.3 pg (27.0-31.2); Mean Corpuscular Volume 81.6 fl (80-94); Mean Platelet Volume 7.7 fl (7.4-10.4); Monocytes # 0.5 K/mm3 (0.1-1.0); Monocytes % 5.4 % (1.7-9.3); Neutrophils # 8.1 K/mm3 (1.8-7.8); Platelet Count 219 K/mm3 (142-424); Red Blood Count 2.47 M/mm3 (4.60-6.20); Red Cell Distribution Width 22.3 % (11.5-17.5); White Blood Count 9.7 K/mm3 (4.8-10.8)
[2023-05-31 07:21] LABS: Hematocrit 20.2 % (42.0-52.0); Hemoglobin 6.8 g/dL (14.1-18.0)
[2023-05-31 07:33] LABS: Occult Blood,Stool Positive (Negative)
[2023-05-31 07:34] LABS: Chloride 106 mmol/L (98-107); Sodium 137 mmol/L (136-145)
[2023-05-31 07:35] LABS: Potassium 3.9 mmoL/L (3.5-5.1)
[2023-05-31 07:37] LABS: Alanine Aminotransferase 294 U/L (12-78); Albumin Level 3.3 g/dl (3.5-5.0); Albumin/Globulin Ratio 1.1 (1.1-1.8); Alkaline Phosphatase 81 U/L (38-126); Anion Gap 11.9 mEq/L (5-15); Aspartate Amino Transferase 489 U/L (17-59); Blood Urea Nitrogen 41 mg/dl (9-20); Calcium 8.5 mg/dl (8.4-10.2); Carbon Dioxide 23 mmol/L (22.0-30.0); Creatinine Clearance Estimated 52 mL/min (50-200); Estimated Glomerular Filt Rate 94 ml/min (>60); GFR (African American) 113 ML/MIN (>60); Globulin 3.1 g/dL (1.3-3.2); Glucose 136 mg/dl (74-100); Lipase 94 U/L (23-300); Magnesium 1.8 mg/dl (1.6-2.3); Total Protein,Serum 6.4 g/dl (6.3-8.2)
[2023-05-31 07:42] LABS: INR 2.31 (0.9-1.1); Prothrombin Time 23.6 seconds (10.1-12.5)
[2023-05-31] MEDS: SODIUM CHLORIDE 0.9% 10ML SYR (RAD ONLY) 10 ML IV (08:09)
[2023-05-31] MEDS: IOPAMIDOL-370 (76%);100ML BOTTLE 100 ML IV (08:09)
[2023-05-31] MEDS: 0.9 % SODIUM CHLORIDE 50 ML VIAL IV (08:09)
--- NOTE | 2023-05-31 08:10 | PC.NURSE ---
ordered for 1 unit PRBC emergent release d/t pt symptomatic anemia. Lab notified and arrived with unit #[id number]. Pt verified and blood verified with Devi Aguero RN. Blood started at 0810 and finished at 0904
--- NOTE | 2023-05-31 08:15 | ECG_ITS ---
APPROVED REPORT Exam: Resting ECG HR:91 bpm ECG Measurements Heart Rate 91 AXES OR 172 P 78 QRSd 109 QRS 87 QT 400 T 123 QTc 449 Conclusion SINUS RHYTHM WITH OCCASIONAL VENTRICULAR PREMATURE COMPLEXES MARKED ST DEPRESSION, CONSIDER SUBENDOCARDIAL INJURY [0.2+ mV ST DEPRESSION] ACUTE [place] UNCONFIRMED REPORT Electronically signed by : Curtis Montes MD 05/31/2023 19:57:22
--- NOTE | 2023-05-31 08:23 | PC.NURSE ---
Dr Ling speaking with Dr Rice
[2023-05-31 08:41] LABS: Troponin I 0.05 ng/ml (0.00-0.034)
[2023-05-31] MEDS: MORPHINE 4MG/ML SYRINGE 2 MG IV ×2 (08:46→10:12)
[2023-05-31] MEDS: KCENTRA 2000 UNIT IV (09:27)
--- NOTE | 2023-05-31 09:55 | PC.NURSE ---
paged dr vargas he is in surgery at this time
--- NOTE | 2023-05-31 10:00 | PC.NURSE ---
attempted to call Dr. Esteves and received no answer. Dr. Ling at BS to update on POC.
--- NOTE | 2023-05-31 10:00 | PC.NURSE ---
dr vargas responded to dr allan via text
--- NOTE | 2023-05-31 10:35 | PC.NURSE ---
called care management for admission
--- NOTE | 2023-05-31 11:36 | PC.NURSE ---
Report called to Gay MONTES
[2023-05-31 12:04] LABS: Troponin I 0.06 ng/ml (0.00-0.034)
--- NOTE | 2023-05-31 12:43 | HMH.PHAINT1 ---
Pharmacy Intervention Comments: home medicaiton list verified using list form outpatient pharmacy and pt interview
--- OUTSIDE RECORDS SUMMARY | 2023-05-31 13:11 | XMS_ITS | Clinical Summary ---
Author Name Unknown Address [address] [place] [address] Phone Organization [facility] Address [address] [place] [address] Phone Care Team Providers Care Junior Analyst Name Role Phone Unavailable Unavailable Conditions or Problems No information available. Medications No information available. Medications Administered No information available. Allergies, Adverse Reactions, Alerts No information available. Results No information available. Plan of Care No information available. Procedures No information available. Vital Signs No information available. Immunizations No information available. Advance Directives No information available.
[2023-05-31 13:23] LABS: Hematocrit 27.6 % (42.0-52.0)
[2023-05-31 13:31] LABS: Hemoglobin 9.6 g/dL (14.1-18.0)
[2023-05-31] MEDS: MORPHINE 2MG/ML SYRINGE 2 MG IV (14:59)
--- NOTE | 2023-05-31 15:10 | P.CONS_ITS ---
History of Present Illness *Admission Date: 05/31/23 *Reason for visit:: Hematemesis/melena/bright red blood per rectum *History of present illness: This is a 78-year-old gentleman with multiple comorbid medical conditions and complex surgical history who presented to the emergency department with a 2-day complaint of nausea, vomiting, and diarrhea. He reports that initially dark brown vomit was noted. This was followed by very dark diarrhea that then turned a little bright red . Please see HPI forwarded below from emergency department. He has received 2 units packed red blood cells with an initial excellent response. Forwarded from emergency department evaluation: HPI narrative: Patient is a 78-year-old male presents today with nausea vomiting diarrhea. States that his vomit and his stool has been black. Patient was diagnosed with ischemic colitis in February 2023 ultimately had a colectomy and had this complicated by C. difficile colitis for which she has recently completed therapy. Surgery was done initially by Dr. Dasilva but he has been following Dr. Alarcon since that surgical intervention. Patient has been doing well up until few days ago when symptoms stated above worsen. No history of any liver disease he has not been taking any NSAIDs that he is aware of no history of peptic ulcer disease. Does have some abdominal pain in the right lower quadrant but it is not severe. No sudden component of this abdominal discomfort. Does appear more pale according to his is at the bedside. No fevers chills or any other symptoms. She did bring in a stool sample for testing. [facility] Disclaimer: The information contained in this section may have been updated after the patient was seen, as this information can be updated by other users. Medical History Abdominal bruit Abnormal ankle brachial index (JUSTICE) Allergic rhinitis C. difficile colitis CAD (coronary artery disease) Cardiac murmur Carotid artery disease Cecum perforation Chronic cough Claudication Claudication COPD (chronic obstructive pulmonary disease) COPD exacerbation COPD mixed type Dyspnea on exertion H/O: lung cancer Hearing Loss Hearing loss, bilateral Hemoptysis Hyperlipidemia Hypertension Impacted cerumen Incurved toenail Laceration of right ear canal Lung nodule Non-healing wound Nonhealing nonsurgical wound PAD (peripheral artery disease) Pain around toenail, left foot Paroxysmal atrial fibrillation Peripheral arterial disease Pneumonia PVD (peripheral vascular disease) Respiratory failure Sepsis Small cell lung cancer Smoker Smoking greater than 30 pack years Surgical History H/O angioplasty H/O endarterectomy History of cardiac cath History of carpal tunnel release Hx of coronary artery bypass graft S/P femoral-popliteal bypass surgery S/P right hemicolectomy Status post insertion of iliac artery stent Family History Other Asthma Social History (Updated 05/31/23 @ 12:38 by Gay Kelly RN) Smoking Status: Never smoker alcohol intake: current substance use type: denies use current occupational status: retired Travel in the last 8 weeks: None household members: spouse housing: house marital status: caffeine: Yes Meds Home Medications and Allergies Home Medications Medication Instructions Recorded Confirmed Type albuterol sulfate 90 mcg/actuation 2 puff inhalation QIDP PRN 08/27/17 05/31/23 History aerosol inhaler (Ventolin HFA) Shortness Of Breath folic acid 1 mg tablet 1 mg PO DAILY Supplement 08/27/17 05/31/23 History fluticasone propionate 50 2 spray intranasal DAILY 08/18/22 05/31/23 History mcg/actuation nasal spray,suspension (Flonase Allergy Relief) mirtazapine 15 mg tablet 7.5 mg PO HS 09/01/22 05/31/23 History multivitamin 1 tab PO DAILY Supplement 09/25/22 05/31/23 History montelukast 10 mg tablet 10 mg PO HS 02/25/23 05/31/23 History pantoprazole 40 mg tablet,delayed 40 mg PO DAILY Acid reflux #90 tabs 03/12/23 05/31/23 Rx release atorvastatin 80 mg tablet 80 mg PO HS #30 tabs 04/02/23 05/31/23 Rx isosorbide mononitrate 30 mg 30 mg PO DAILY #90 tabs 04/02/23 05/31/23 Rx tablet,extended release 24 hr metoprolol succinate 50 mg 50 mg PO DAILY #90 tabs 04/02/23 05/31/23 Rx tablet,extended release 24 hr rivaroxaban 20 mg tablet 20 mg PO HS #30 tabs 04/02/23 05/31/23 Rx spironolactone 25 mg tablet 25 mg PO DAILY 90 days #90 tabs 05/04/23 05/31/23 Rx fluticasone fur. 100 mcg-umeclid 1 inh inhalation DAILY 90 days #90 05/15/23 05/31/23 Rx 62.5 mcg-vilant 25 mcg ea inhalat.powder (Trelegy Ellipta) aspirin 81 mg tablet,delayed 81 mg PO DAILY #30 tabs 05/23/23 05/31/23 Rx release (Adult Aspirin Regimen) cetirizine 10 mg tablet 10 mg PO DAILY 05/31/23 05/31/23 History oxycodone 10 mg tablet 10 mg PO BIDP PRN pain (scale 05/31/23 05/31/23 History score 7-10) New Prescriptions to Start Prescriptions: Allergies Allergy/AdvReac Type Severity Reaction Status Date / Time Penicillins Allergy Intermediate I-ITCHING; Verified 05/31/23 12:23 SWELLING Antihistamines - Ethanolamine Allergy Unknown Unknown Verified 05/31/23 12:23 allergy reaction [place] nut Allergy Rash Verified 05/31/23 12:23 doxycycline AdvReac Mild Rash Verified 05/31/23 12:23 Exam (Inpt) Vital signs and Labs for Last 24 Hours: Temp Pulse Resp BP Pulse Ox O2 Del Method 97.8 F 89 16 124/56 L 96 Room Air 05/31/23 12:16 05/31/23 12:16 05/31/23 12:16 05/31/23 12:16 05/31/23 12:12 05/31/23 13:49 Laboratory Results - last 24 hr 05/31/23 07:00: Stool Occult Blood Positive A 05/31/23 07:09: WBC 9.7, RBC 2.47 L, Hgb 6.8 L*, Hct 20.2 L*, MCV 81.6, MCH 27.3, MCHC 33.5, RDW 22.3 H, Plt Count 219, MPV 7.7, Neut % (Auto) 83.0 H, Lymph % (Auto) 11.2, [place] % (Auto) 5.4, Eos % (Auto) 0.3, Baso % (Auto) 0.1, Neut # (Auto) 8.1 H, Lymph # (Auto) 1.1, [place] # (Auto) 0.5, Eos # (Auto) 0.0, Baso # (Auto) 0.0, PT 23.6 H, INR 2.31 H, APTT 37.0 H, Sodium 137, Potassium 3.9, Chloride 106, Carbon Dioxide 23, Anion Gap 11.9, BUN 41 H, Creatinine 0.80, Estimated Creat Clear 52, Estimated GFR 94, Est GFR ( Amer) 113, Glucose 136 H, Calcium 8.5, Phosphorus 4.0, Magnesium 1.8, Total Bilirubin 1.0, AST 489 H*, ALT 294 H, Alkaline Phosphatase 81, Troponin I 0.05 H, Total Protein 6.4, Albumin 3.3 L, Globulin 3.1, Albumin/Globulin Ratio 1.1, Lipase 94 05/31/23 07:40: Blood Type AB Positive, Antibody Screen Negative, Crossmatch (AHG) See Detail 05/31/23 11:35: Troponin I 0.06 H 05/31/23 13:15: Hgb 9.6 L D, Hct 27.6 L I & O for Labs for Last 24 Hours: Intake & Output 05/29/23 05/30/23 05/31/23 06/01/23 11:59 11:59 11:59 11:59 Intake Total 250 / 250 Output Total 200 / 200 0 / 0 Balance 50 / 50 0 / 0 Weight 132 lb 134 lb 4 oz Constitutional: no acute distress Respiratory: Absent respiratory distress Cardiac: Absent Tachycardia GI: Present soft Results Labs 05/31/23 13:15 05/31/23 07:09 Labs: Laboratory Results - last 24 hr 05/31/23 07:00: Stool Occult Blood Positive A 05/31/23 07:09: WBC 9.7, RBC 2.47 L, Hgb 6.8 L*, Hct 20.2 L*, MCV 81.6, MCH 27.3, MCHC 33.5, RDW 22.3 H, Plt Count 219, MPV 7.7, Neut % (Auto) 83.0 H, Lymph % (Auto) 11.2, [place] % (Auto) 5.4, Eos % (Auto) 0.3, Baso % (Auto) 0.1, Neut # (Auto) 8.1 H, Lymph # (Auto) 1.1, [place] # (Auto) 0.5, Eos # (Auto) 0.0, Baso # (Auto) 0.0, PT 23.6 H, INR 2.31 H, APTT 37.0 H, Sodium 137, Potassium 3.9, Chloride 106, Carbon Dioxide 23, Anion Gap 11.9, BUN 41 H, Creatinine 0.80, Estimated Creat Clear 52, Estimated GFR 94, Est GFR ( Amer) 113, Glucose 136 H, Calcium 8.5, Phosphorus 4.0, Magnesium 1.8, Total Bilirubin 1.0, AST 489 H*, ALT 294 H, Alkaline Phosphatase 81, Troponin I 0.05 H, Total Protein 6.4, Albumin 3.3 L, Globulin 3.1, Albumin/Globulin Ratio 1.1, Lipase 94 05/31/23 07:40: Blood Type AB Positive, Antibody Screen Negative, Crossmatch (AHG) See Detail 05/31/23 11:35: Troponin I 0.06 H 05/31/23 13:15: Hgb 9.6 L D, Hct 27.6 L Assessment and Plan *Assessment and plan (1) Acute upper gastrointestinal bleeding: Status: Acute Category: Medical Code(s): K92.2 - Gastrointestinal hemorrhage, unspecified Plan: Continue serial hemoglobin/hematocrit Transfuse as needed Continue proton pump inhibition NPO after midnight for esophagogastroduodenoscopy tomorrow morning I have discussed the risks and benefits including, but not limited to: Bleeding Infection Damage to surrounding tissue Inherent risks of sedation The patient agrees to proceed. (2) Acute blood loss anemia: Status: Acute Category: Medical Code(s): D62 - Acute posthemorrhagic anemia Plan: (See #1 above) (3) Coagulopathy: Status: Acute Category: Medical Code(s): D68.9 - Coagulation defect, unspecified Plan: Note presenting INR of 2.31 on the patient that his not take Coumadin. He is on Xarelto which is being held for now. FFP ordered per primary service Elevated INR possibly secondary to hepatic insult Continue management as per primary service
[2023-05-31 15:47] LABS: Troponin I 0.13 ng/ml (0.00-0.034)
--- NOTE | 2023-05-31 18:06 | P.HP_ITS ---
History of Present Illness *Admission Date: 05/31/23 *Reason for visit:: blackk colored stools *History of present illness: Patient is a 89-year-old male with past medical history of ischemic colitis who presents to the hospital due to black bloody stools. According to the patient he was recently started on aspirin, he is currently also on Xarelto for his ischemic colitis. He recently started noticing black-colored stools, he also has associated nausea, he had vomiting which seems to have blood as well. Patient otherwise denies chest pain shortness of breath nausea vomiting diarrhea constipation dysuria fever chills. He has abdominal discomfort PFSH [facility] Disclaimer: The information contained in this section may have been updated after the patient was seen, as this information can be updated by other users. Medical History Abdominal bruit Abnormal ankle brachial index (JUSTICE) Allergic rhinitis C. difficile colitis CAD (coronary artery disease) Cardiac murmur Carotid artery disease Cecum perforation Chronic cough Claudication Claudication COPD (chronic obstructive pulmonary disease) COPD exacerbation COPD mixed type Dyspnea on exertion H/O: lung cancer Hearing Loss Hearing loss, bilateral Hemoptysis Hyperlipidemia Hypertension Impacted cerumen Incurved toenail Laceration of right ear canal Lung nodule Non-healing wound Nonhealing nonsurgical wound PAD (peripheral artery disease) Pain around toenail, left foot Paroxysmal atrial fibrillation Peripheral arterial disease Pneumonia PVD (peripheral vascular disease) Respiratory failure Sepsis Small cell lung cancer Smoker Smoking greater than 30 pack years Surgical History H/O angioplasty H/O endarterectomy History of cardiac cath History of carpal tunnel release Hx of coronary artery bypass graft S/P femoral-popliteal bypass surgery S/P right hemicolectomy Status post insertion of iliac artery stent Family History Other Asthma Social History (Updated 05/31/23 @ 12:38 by Gay Kelly RN) Smoking Status: Never smoker alcohol intake: current substance use type: denies use current occupational status: retired Travel in the last 8 weeks: None household members: spouse housing: house marital status: caffeine: Yes Review of Systems Review of Systems Review of systems (narrative): as per [facility] Meds Home Medications and Allergies Home Medications Medication Instructions Recorded Confirmed Type albuterol sulfate 90 mcg/actuation 2 puff inhalation QIDP PRN 08/27/17 05/31/23 History aerosol inhaler (Ventolin HFA) Shortness Of Breath folic acid 1 mg tablet 1 mg PO DAILY Supplement 08/27/17 05/31/23 History fluticasone propionate 50 2 spray intranasal DAILY 08/18/22 05/31/23 History mcg/actuation nasal spray,suspension (Flonase Allergy Relief) mirtazapine 15 mg tablet 7.5 mg PO HS 09/01/22 05/31/23 History multivitamin 1 tab PO DAILY Supplement 09/25/22 05/31/23 History montelukast 10 mg tablet 10 mg PO HS 02/25/23 05/31/23 History pantoprazole 40 mg tablet,delayed 40 mg PO DAILY Acid reflux #90 tabs 03/12/23 05/31/23 Rx release atorvastatin 80 mg tablet 80 mg PO HS #30 tabs 04/02/23 05/31/23 Rx isosorbide mononitrate 30 mg 30 mg PO DAILY #90 tabs 04/02/23 05/31/23 Rx tablet,extended release 24 hr metoprolol succinate 50 mg 50 mg PO DAILY #90 tabs 04/02/23 05/31/23 Rx tablet,extended release 24 hr rivaroxaban 20 mg tablet 20 mg PO HS #30 tabs 04/02/23 05/31/23 Rx spironolactone 25 mg tablet 25 mg PO DAILY 90 days #90 tabs 05/04/23 05/31/23 Rx fluticasone fur. 100 mcg-umeclid 1 inh inhalation DAILY 90 days #90 05/15/23 05/31/23 Rx 62.5 mcg-vilant 25 mcg ea inhalat.powder (Trelegy Ellipta) aspirin 81 mg tablet,delayed 81 mg PO DAILY #30 tabs 05/23/23 05/31/23 Rx release (Adult Aspirin Regimen) cetirizine 10 mg tablet 10 mg PO DAILY 05/31/23 05/31/23 History oxycodone 10 mg tablet 10 mg PO BIDP PRN pain (scale 05/31/23 05/31/23 History score 7-10) New Prescriptions to Start Prescriptions: Allergies Allergy/AdvReac Type Severity Reaction Status Date / Time Penicillins Allergy Intermediate I-ITCHING; Verified 05/31/23 12:23 SWELLING Antihistamines - Ethanolamine Allergy Unknown Unknown Verified 05/31/23 12:23 allergy reaction [place] nut Allergy Rash Verified 05/31/23 12:23 doxycycline AdvReac Mild Rash Verified 05/31/23 12:23 Exam Data for Last 24 hours Vital signs and Labs for Last 24 Hours: Temp Pulse Resp BP Pulse Ox O2 Del Method 97.9 F 88 16 146/66 H 92 L Room Air 05/31/23 16:00 05/31/23 16:00 05/31/23 16:00 05/31/23 16:00 05/31/23 16:00 05/31/23 17:45 Laboratory Results - last 24 hr 05/31/23 07:00: Stool Occult Blood Positive A 05/31/23 07:09: WBC 9.7, RBC 2.47 L, Hgb 6.8 L*, Hct 20.2 L*, MCV 81.6, MCH 27.3, MCHC 33.5, RDW 22.3 H, Plt Count 219, MPV 7.7, Neut % (Auto) 83.0 H, Lymph % (Auto) 11.2, [place] % (Auto) 5.4, Eos % (Auto) 0.3, Baso % (Auto) 0.1, Neut # (Auto) 8.1 H, Lymph # (Auto) 1.1, [place] # (Auto) 0.5, Eos # (Auto) 0.0, Baso # (Auto) 0.0, PT 23.6 H, INR 2.31 H, APTT 37.0 H, Sodium 137, Potassium 3.9, Chloride 106, Carbon Dioxide 23, Anion Gap 11.9, BUN 41 H, Creatinine 0.80, Estimated Creat Clear 52, Estimated GFR 94, Est GFR ( Amer) 113, Glucose 136 H, Calcium 8.5, Phosphorus 4.0, Magnesium 1.8, Total Bilirubin 1.0, AST 489 H*, ALT 294 H, Alkaline Phosphatase 81, Troponin I 0.05 H, Total Protein 6.4, Albumin 3.3 L, Globulin 3.1, Albumin/Globulin Ratio 1.1, Lipase 94 05/31/23 07:40: Blood Type AB Positive, Antibody Screen Negative, Crossmatch (AHG) See Detail 05/31/23 11:35: Troponin I 0.06 H 05/31/23 13:15: Hgb 9.6 L D, Hct 27.6 L 05/31/23 14:58: Troponin I 0.13 H I & O for Last 24 hours: Intake & Output 05/28/23 05/29/23 05/30/23 05/31/23 23:59 23:59 23:59 23:59 Intake Total 250.31 / 250.31 Output Total 200 / 200 Balance 50.31 / 50.31 Weight 60.895 kg Constitutional Constitutional: no acute distress *Routine HEENT Exam Head: Present normocephalic Eye: Present EOMI and PERRL ENT: Present mucous membranes moist *Routine Neck Exam Neck: Present supple; Absent lymphadenopathy *Routine Respiratory Exam Respiratory: Present CTA bilaterally *Routine Cardiovascular Exam Cardiovascular: Present RRR *Routine Abdominal Exam Abdominal: Present soft and normoactive bowel sounds; Absent tenderness *Routine Rectal Exam Rectal:: deferred *Routine Genitalia Exam Genitalia:: deferred *Routine Extremities Exam Extremities: Absent cyanosis, clubbing or edema *Routine Skin Exam Skin: Present warm; Absent rash *Routine Neurological Exam Neurological: Present alert and oriented X3 Assessment and Plan *Assessment and plan (1) Acute upper gastrointestinal bleeding: Status: Acute Category: Medical Code(s): K92.2 - Gastrointestinal hemorrhage, unspecified (2) Acute blood loss anemia: Status: Acute Category: Medical Code(s): D62 - Acute posthemorrhagic anemia (3) Type 2 WV (myocardial infarction): Status: Acute Category: Medical Code(s): I21.A1 - Myocardial infarction type 2 (4) Nausea vomiting and diarrhea: Status: Acute Category: Medical Code(s): R11.2 - Nausea with vomiting, unspecified; R19.7 - Diarrhea, unspecified (5) Coagulopathy: Status: Acute Category: Medical Code(s): D68.9 - Coagulation defect, unspecified (6) Ischemic colitis: Status: Chronic Category: Medical Code(s): K55.9 - Vascular disorder of intestine, unspecified Plan Assessment and plan Melanotic stools GIB Anemia likely anemia of blood loss Coagulopathy Start IV PPI Status post 2 units packed red blood cells Status post Kcentra Status post 2 units FFP Hold antiplatelets anticoagulants General surgery consulted, plan for EGD tomorrow N.p.o. after midnight Monitor hemoglobin, replace if hemoglobin less than 7 IV fluid therapy Transaminitis - monitor Elevated troponin - trending up - consult Cardiology DM ISS
[2023-05-31] MEDS: 0.9 % SODIUM CHLORIDE 1000ML 1,000 ML 75 ML IV (18:29)
[2023-05-31 20:20] LABS: Hematocrit 23.5 % (42.0-52.0)
[2023-05-31] MEDS: SODIUM CHLORIDE 0.9% 10ML FLUSH SYRINGE 10 ML IV (20:47)
[2023-05-31] MEDS: OXYCODONE 10MG W/APAP 325MG TABLET 1 EACH PO (20:47)
[2023-05-31] MEDS: PANTOPRAZOLE 40MG VIAL 40 MG IV (20:47)
--- NOTE | 2023-05-31 22:18 | PC.NURSE ---
PATIENT REPORTS THAT HE FEELS BETTER SINCE RECEIVING BLOOD PRODUCTS EARLIER TODAY. DENIES HEMATEMESIS, OR RECTAL BLEEDING. WILL CONTINUE TO MONITOR. VITAL SIGNS STABLE AT THIS TIME. HR 98.
[2023-06-01] VITALS (28 sets, daily range): BP systolic 102–161; BP diastolic 53–85; PULSE 71–90; RESP 16–18; TEMP 36.2–36.9; O2SAT 90–100; BMI 21.7
[2023-06-01 01:01] LABS: Occult Blood,Stool Positive (Negative)
[2023-06-01 01:04] LABS: Adenovirus F 40/41, stool Not Detected (NotDetected); Astrovirus Not Detected (NotDetected); Campylobacter Not Detected (NotDetected); Cryptosporidium Not Detected (NotDetected); Cyclospora Cayetanesis Not Detected (NotDetected); Entamoeba histolytica Not Detected (NotDetected); Enteroaggregative E coli Not Detected (NotDetected); Enteropathogenic E coli Not Detected (NotDetected); Enterotoxigenic E coli Not Detected (NotDetected); Giardia lamblia Not Detected (NotDetected); Norovirus Not Detected (NotDetected); Plesimonas Shigalloides, PCR Not Detected (NotDetected); Rotavirus A Not Detected (NotDetected); Salmonella, PCR Not Detected (NotDetected); Sapovirus Not Detected (NotDetected); Shiga-like toxin E coli Not Detected (NotDetected); Shigella Enterovasive E coli Not Detected (NotDetected); Vibrio Cholerae Not Detected (NotDetected); Vibrio, PCR Not Detected (NotDetected); Yersinia Entercolitica, PCR Not Detected (NotDetected)
--- NOTE | 2023-06-01 05:52 | PC.NURSE ---
NPO SINCE MN FOR EGD. VSs STABLE. NO EVIDENCE OF GI BLEED AT THIS TIME.
[2023-06-01 06:20] LABS: INR 1.43 (0.9-1.1); Prothrombin Time 15.1 seconds (10.1-12.5)
[2023-06-01 06:26] LABS: Chloride 109 mmol/L (98-107)
[2023-06-01 06:27] LABS: Potassium 3.8 mmoL/L (3.5-5.1); Sodium 138 mmol/L (136-145)
[2023-06-01 06:29] LABS: Blood Urea Nitrogen 38 mg/dl (9-20); Creatinine Clearance Estimated 54 mL/min (50-200); Estimated Glomerular Filt Rate 131 ml/min (>60); GFR (African American) 158 ML/MIN (>60)
[2023-06-01 06:30] LABS: Anion Gap 5.8 mEq/L (5-15); Carbon Dioxide 27 mmol/L (22.0-30.0); Glucose 80 mg/dl (74-100)
--- NOTE | 2023-06-01 06:36 | PC.NURSE ---
0635 PATIENT TRANSFERED TO THE OR VIA BED.
--- NOTE | 2023-06-01 07:34 | HMH.SCOPE ---
Procedure: Date: 06/01/23 Patient Date of :: 1945 Procedure Performed:: Esophagogastroduodenoscopy with biopsy, epinephrine injection, and resolution 360 clip placement Indications:: Gastrointestinal hemorrhage Performing Provider:: Kyle Rice MD Referring Provider:: . Sedation:: Monitored anesthesia care Procedure:: After informed consent was obtained the patient was taken to the endoscopy suite. Sedation ensued after the patient was transferred to the left lateral decubitus position. Pulse, blood pressure, and oxygen saturation were monitored throughout the procedure. The endoscope was advanced beyond the duodenal bulb. Retroflexion within the gastric lumen was accomplished. The gastroscope was carefully removed and the patient was transferred to recovery in stable condition. Please see findings and specimens below for detail. Findings:: Large volume clot in proximal/mid gastric body Severe patchy gastritis Multiple punctate and linear ulcerations throughout proximal and mid gastric body Focal ulceration with active sanguinous ooze controlled with epinephrine injection and Resolution 360 clip placement Note: 9 mL of epinephrine injected in/around punctate bleeding ulceration in mid/distal gastric body prior to placement of Resolution 360 clip. Specimens:: Antral biopsy Recommendations:: Continue proton pump inhibition Repeat esophagogastroduodenoscopy in 6-8 weeks Follow-up pathology Complications:: No immediate Estimated blood obtained (mL): 1 Colonoscopy Component Colonoscopy Component Was a colonoscopy performed during today's procedure?: No
--- NOTE | 2023-06-01 08:04 | EXP.ANES.CKL ---
[facility] Disclaimer: The information contained in this section may have been updated after the patient was seen, as this information can be updated by other users. Medical History Abdominal bruit Abnormal ankle brachial index (JUSTICE) Allergic rhinitis C. difficile colitis CAD (coronary artery disease) Cardiac murmur Carotid artery disease Cecum perforation Chronic cough Claudication Claudication COPD (chronic obstructive pulmonary disease) COPD exacerbation COPD mixed type Dyspnea on exertion H/O: lung cancer Hearing Loss Hearing loss, bilateral Hemoptysis Hyperlipidemia Hypertension Impacted cerumen Incurved toenail Laceration of right ear canal Lung nodule Non-healing wound Nonhealing nonsurgical wound PAD (peripheral artery disease) Pain around toenail, left foot Paroxysmal atrial fibrillation Peripheral arterial disease Pneumonia PVD (peripheral vascular disease) Respiratory failure Sepsis Small cell lung cancer Smoker Smoking greater than 30 pack years Surgical History H/O angioplasty H/O endarterectomy History of cardiac cath History of carpal tunnel release Hx of coronary artery bypass graft S/P femoral-popliteal bypass surgery S/P right hemicolectomy Status post insertion of iliac artery stent Family History Other Asthma Social History (Updated 05/31/23 @ 12:38 by Gay Kelly RN) Smoking Status: Never smoker alcohol intake: current substance use type: denies use current occupational status: retired Travel in the last 8 weeks: None household members: spouse housing: house marital status: caffeine: Yes [facility] Anesthesia Checklist Patient Identification Patient Identification: Arm Band Structural Data Admitted From: Inpatient Planned Operative Procedure/s: EGD Consent for Planned Operative Procedure(s) Verified: Yes Verified Documents: Surgical Consent and History and Physical NPO Status Verified Time NPO: 00:00 Additional verifications Anesthesia Reactions: No Hx Blood Transfusions: Yes Blood Transfusion Reaction: No Airway Assessment Mallampati Score:: Class II C-Spine Mobility Assessed: Yes TMJ Mobility Assessed: Yes Dentition: Edentulous Neurological Assessment Level of Consciousness: Awake and Alert Anesthesia Plan Anesthesia Risk discussed: Yes Anesthesia Plan: Verified ASA Class: III Anesthesia Type: MAC
[2023-06-01] MEDS: PANTOPRAZOLE 40MG VIAL 40 MG IV ×2 (08:22→20:02)
[2023-06-01] MEDS: 0.9 % SODIUM CHLORIDE 1000ML 1,000 ML 75 ML IV (08:22)
[2023-06-01 09:11] LABS: Basophils % 0.1 % (0.1-2.0); Eosinophils # 0.1 K/mm3 (0.0-0.4); Eosinophils % 0.8 % (0.1-12.0); Hematocrit 24.4 % (42.0-52.0); Hemoglobin 8.2 g/dL (14.1-18.0); Lymphocytes # 1.1 K/mm3 (0.7-4.5); Mean Corpuscular HGB Conc 33.6 g/dL (31.8-35.4); Mean Corpuscular Hemoglobin 29.4 pg (27.0-31.2); Mean Corpuscular Volume 87.5 fl (80-94); Monocytes # 0.6 K/mm3 (0.1-1.0); Monocytes % 4.6 % (1.7-9.3); Neutrophils # 10.2 K/mm3 (1.8-7.8); Neutrophils % 85.5 % (37.0-80.0); Platelet Count 176 K/mm3 (142-424); Red Blood Count 2.79 M/mm3 (4.60-6.20); Red Cell Distribution Width 21.8 % (11.5-17.5)
[2023-06-01 09:19] LABS: MANUAL DIFFERENTIAL MANUAL DIFFERENTIAL (MANUAL DIFF)
[2023-06-01] MEDS: ONDANSETRON 4MG/2ML VIAL 4 MG IV (09:33)
--- NOTE | 2023-06-01 10:19 | P.CONCA_ITS ---
History of Present Illness History of Present Illness Consult date: 06/01/23 Requesting physician: Abraham Esteves Chief complaint: black stools and vomit History of present illness: This is a 78-year-old white male with past medical history of paroxysmal atrial fibrillation on Xarelto, HFrEF with EF of 40%, coronary artery disease s/p CABG, ischemic colitis status post colectomy complicated with c-diff infection, known severe stenosis of the SMA, PAD and carotid artery stenosis presented to hospital with complaints of 3 days of black/bloody stools and bloody vomit. Patiently recently finished antibiotics after developing C. difficile status post colectomy for ischemic colitis in February 2023. Of note patient is on Xarelto for history of A-fib. He recently was started back on aspirin per his vascular surgeon for peripheral artery disease. Upon presentation to emergency department labs were as follow: WBC 9.7, hemoglobin 6.8, hematocrit 20.2, platelets 219, sodium 137, potassium 3.9, creatinine 0.8, AST 489, ALT 294 and troponin 0.05 trending up to 0.13. Stool was positive for occult blood. Initial EKG showed sinus rhythm at a rate of [address] depression concerning for subendocardial injury. Patient did report some mild chest pain in ER that resolved with blood transfusions. Reports has had no more chest pain since administration of blood. A CTA of abdomen pelvis was obtained which showed diffuse vascular calcifications which are known and stable since prior CT in March. No acute process was identified. Due to the extent of GI bleed and low hemoglobin, ER physician gave patient Kcentra and began blood transfusions. Patient was admitted for acute GI bleed. Patient underwent EDG this morning for gastrointestinal hemorrhage which revealed a large volume clot in the proximal to mid gastric body with severe patchy gastritis and multiple punctate and linear ulcerations throughout the proximal and mid gastric body. A focal ulceration with active sanguinous ooze was controlled with epinephrine injection and resolution 360 clip placement. Cardiology was asked to evaluate for elevated troponins. This morning patient is status post procedure resting comfortably with at bedside. Patient denies symptoms of chest pain or shortness of breath this morning. [facility] Disclaimer: The information contained in this section may have been updated after the patient was seen, as this information can be updated by other users. Medical History Abdominal bruit Abnormal ankle brachial index (JUSTICE) Allergic rhinitis C. difficile colitis CAD (coronary artery disease) Cardiac murmur Carotid artery disease Cecum perforation Chronic cough Claudication Claudication COPD (chronic obstructive pulmonary disease) COPD exacerbation COPD mixed type Dyspnea on exertion H/O: lung cancer Hearing Loss Hearing loss, bilateral Hemoptysis Hyperlipidemia Hypertension Impacted cerumen Incurved toenail Laceration of right ear canal Lung nodule Non-healing wound Nonhealing nonsurgical wound PAD (peripheral artery disease) Pain around toenail, left foot Paroxysmal atrial fibrillation Peripheral arterial disease Pneumonia PVD (peripheral vascular disease) Respiratory failure Sepsis Small cell lung cancer Smoker Smoking greater than 30 pack years Surgical History H/O angioplasty H/O endarterectomy History of cardiac cath History of carpal tunnel release Hx of coronary artery bypass graft S/P femoral-popliteal bypass surgery S/P right hemicolectomy Status post insertion of iliac artery stent Family History Other Asthma Social History (Updated 05/31/23 @ 12:38 by Gay Kelly RN) Smoking Status: Never smoker alcohol intake: current substance use type: denies use current occupational status: retired Travel in the last 8 weeks: None household members: spouse housing: house marital status: caffeine: Yes Review of Systems Review of Systems Review of systems:: pertinent systems reviewed and negative unless documented below *Cardiovascular Cardiovascular: Reports chest pain and Reports dyspnea *Respiratory Respiratory: Reports dyspnea *Gastrointestinal Gastrointestinal: Reports hematemesis, Reports melena and Reports nausea Exam Data for Last 24 hours Vital signs and Labs for Last 24 Hours: Temp Pulse Resp BP Pulse Ox O2 Del Method O2 Flow Rate 98 F 76 16 137/69 99 Nasal Cannula 2 06/01/23 09:30 06/01/23 09:30 06/01/23 09:30 06/01/23 09:30 06/01/23 09:30 06/01/23 09:55 06/01/23 09:55 FiO2 2 06/01/23 09:00 Laboratory Results - last 24 hr 05/31/23 07:40: Blood Type AB Positive, Antibody Screen Negative, Crossmatch (AHG) See Detail 05/31/23 11:35: Troponin I 0.06 H 05/31/23 13:15: Hgb 9.6 L D, Hct 27.6 L 05/31/23 14:58: Troponin I 0.13 H 05/31/23 20:16: Hgb 8.0 L D, Hct 23.5 L 06/01/23 00:43: Stool Occult Blood Positive A 06/01/23 05:17: PT 15.1 H, INR 1.43 H, Sodium 138, Potassium 3.8, Chloride 109 H , Carbon Dioxide 27, Anion Gap 5.8, BUN 38 H, Creatinine 0.60 L D, Estimated Creat Clear 54, Estimated GFR 131, Est GFR ( Amer) 158 D, Glucose 80 D, Calcium 8.0 L 06/01/23 08:57: WBC 12.0 H, RBC 2.79 L, Hgb 8.2 L, Hct 24.4 L, MCV 87.5, MCH 29.4, MCHC 33.6, RDW 21.8 H, Plt Count 176, MPV 9.0, Neut % (Auto) 85.5 H, Lymph % (Auto) 9.0 L, [place] % (Auto) 4.6, Eos % (Auto) 0.8, Baso % (Auto) 0.1, Neut # (Auto) 10.2 H, Lymph # (Auto) 1.1, [place] # (Auto) 0.6, Eos # (Auto) 0.1, Baso # (Auto) 0.0 I & O for Last 24 hours: Intake & Output 05/29/23 05/30/23 05/31/23 06/01/23 23:59 23:59 23:59 23:59 Intake Total 520.31 / 917.31 397 / 397 Output Total 200 / 200 0 / 0 Balance 320.31 / 717.31 397 / 397 Weight 134 lb 4 oz 135 lb 3.2 oz Constitutional Constitutional: no acute distress *Routine Respiratory Exam Respiratory: Present CTA bilaterally and symmetric chest movement *Routine Cardiovascular Exam Cardiovascular: Present RRR, Normal S1 and Normal S2 *Routine Abdominal Exam Abdominal: Present soft and normoactive bowel sounds; Absent tenderness *Routine Extremities Exam Extremities: Present full ROM and normal capillary refill; Absent edema *Routine Skin Exam Skin: Present intact, dry and warm Detailed Neck Exam: Thyroids Thyroid: Absent bruit Meds Home Medications and Allergies Home Medications Medication Instructions Recorded Confirmed Type albuterol sulfate 90 mcg/actuation 2 puff inhalation QIDP PRN 08/27/17 05/31/23 History aerosol inhaler (Ventolin HFA) Shortness Of Breath folic acid 1 mg tablet 1 mg PO DAILY Supplement 08/27/17 05/31/23 History fluticasone propionate 50 2 spray intranasal DAILY 08/18/22 05/31/23 History mcg/actuation nasal spray,suspension (Flonase Allergy Relief) mirtazapine 15 mg tablet 7.5 mg PO HS 09/01/22 05/31/23 History multivitamin 1 tab PO DAILY Supplement 09/25/22 05/31/23 History montelukast 10 mg tablet 10 mg PO HS 02/25/23 05/31/23 History pantoprazole 40 mg tablet,delayed 40 mg PO DAILY Acid reflux #90 tabs 03/12/23 05/31/23 Rx release atorvastatin 80 mg tablet 80 mg PO HS #30 tabs 04/02/23 05/31/23 Rx isosorbide mononitrate 30 mg 30 mg PO DAILY #90 tabs 04/02/23 05/31/23 Rx tablet,extended release 24 hr metoprolol succinate 50 mg 50 mg PO DAILY #90 tabs 04/02/23 05/31/23 Rx tablet,extended release 24 hr rivaroxaban 20 mg tablet 20 mg PO HS #30 tabs 04/02/23 05/31/23 Rx spironolactone 25 mg tablet 25 mg PO DAILY 90 days #90 tabs 05/04/23 05/31/23 Rx fluticasone fur. 100 mcg-umeclid 1 inh inhalation DAILY 90 days #90 05/15/23 05/31/23 Rx 62.5 mcg-vilant 25 mcg ea inhalat.powder (Trelegy Ellipta) aspirin 81 mg tablet,delayed 81 mg PO DAILY #30 tabs 05/23/23 05/31/23 Rx release (Adult Aspirin Regimen) cetirizine 10 mg tablet 10 mg PO DAILY 05/31/23 05/31/23 History oxycodone 10 mg tablet 10 mg PO BIDP PRN pain (scale 05/31/23 05/31/23 History score 7-10) New Prescriptions to Start Prescriptions: Allergies Allergy/AdvReac Type Severity Reaction Status Date / Time Penicillins Allergy Intermediate I-ITCHING; Verified 05/31/23 12:23 SWELLING Antihistamines - Ethanolamine Allergy Unknown Unknown Verified 05/31/23 12:23 allergy reaction [place] nut Allergy Rash Verified 05/31/23 12:23 doxycycline AdvReac Mild Rash Verified 05/31/23 12:23 Assessment and Plan *Assessment and plan (1) Acute upper gastrointestinal bleeding: Status: Acute Category: Medical Code(s): K92.2 - Gastrointestinal hemorrhage, unspecified (2) Acute blood loss anemia: Status: Acute Category: Medical Code(s): D62 - Acute posthemorrhagic anemia (3) Type 2 GA (myocardial infarction): Status: Acute Category: Medical Code(s): I21.A1 - Myocardial infarction type 2 (4) Ischemic colitis: Status: Chronic Category: Medical Code(s): K55.9 - Vascular disorder of intestine, unspecified (5) Paroxysmal atrial fibrillation: Status: Acute Category: Medical Code(s): I48.0 - Paroxysmal atrial fibrillation (6) CAD (coronary artery disease): Status: Acute Qualifiers: Associated angina: without angina Coronary Disease-Associated Artery/Lesion type: bypass graft [place] vs. transplanted heart: [place] heart Qualified Code(s): I25.810 - Atherosclerosis of coronary artery bypass graft(s) without angina pectoris Category: Medical Code(s): I25.10 - Atherosclerotic heart disease of [place] coronary artery without angina pectoris (7) Vasculopathy: Status: Acute Category: Medical Code(s): I99.9 - Unspecified disorder of circulatory system Plan History of coronary artery disease History of CABG Acute myocardial injury/Type II GA -Patient presented with acute GI bleed and developed chest pain during event that resolved with blood transfusions -Troponin elevated from 0.05-0.13 during event -EKG with sinus rhythm at a rate of [address] depression concerning for subendocardial injury -This is most likely a type II NSTEMI, no plan for intervention at this time -Continue patient on metoprolol. No Dapt at this time due to acute GI bleed. NO statin due to transaminitis -Will repeat echo to evaluate for any new wall motion abnormalities -Medical management heart cath June 2022 Acute upper gastrointestinal bleeding Acute blood loss -Hemoglobin 6.8 trending up to 2:09 units of packed red blood cells were transfused and 1 unit of FFP -Patient was given Kcentra in ER -Status post EDG with clipping, see procedure report Transaminitis -AST 489, ALT 294. -Hold statin Paroxysmal atrial fibrillation Chadsvasc score of 4 -Currently normal sinus rhythm with a rate in the 70s. Continue metoprolol 50 mg daily. -Resume Xarelto 20 mg daily, monitor for bleeding History of ischemic colitis February 2023 Status post right hemicolectomy Severe stenosis of SMA -CT abdomen pelvis with contrast 02/25/2023: The aorta demonstrates severe atherosclerotic calcification and severe stenosis at the superior mesenteric artery origin. -Repeat CT abdomen pelvis with contrast 05/31/2023 shows no acute changes. -Rather evaluation of SMA stenosis to be done outpatient History of peripheral artery disease -09/2022 angiogram with runoff- drug-coated balloon angioplasty to proximal right SFA. Chronically occluded distal right SFA and right popliteal artery with collaterals which are provide three-vessel runoff below the right knee. Chronically occluded left SFA with poor angiographic runoff distally likely due to sheath obturation of the left external iliac artery. History of bare-metal stent left iliac per Dr. Davila 2018, right femoral endarterectomy 09/23/[address] Morales. sees vascular Dr. Rankin. Carotid artery stenosis -October 2020 20 to 49% bilateral ICA -History of left carotid endarterectomy April 2018. 50% R ICA 30% LICA on neck CTA -Follows with Dr. [place] CV summary 06/01/2023: Patient is currently cardiovascularly stable. More than likely suffered from an acute myocardial injury secondary to acute blood loss. Will obtain a repeat echocardiogram to check for any new wall motion abnormalities. Restart Xarelto 20 mg daily for A-fib on Sunday if hemodynamically stable, monitor closely for bleeding. Please contact Dr. Davila over the weekend for any additional concerns.
--- NOTE | 2023-06-01 10:54 | EXP.PN ---
Subjective *Date: 06/01/23 *Time: 10:54 Interval history: patient was seen and evaluated at the bedside. No reported acute events overnight, HE had EGD this morning, denies chest pain, shortness of breath, nausea, vomiting, abdominal pain. Exam Data for Last 24 hours Vital signs and Labs for Last 24 Hours: Temp Pulse Resp BP Pulse Ox O2 Del Method O2 Flow Rate 98 F 76 16 137/69 99 Nasal Cannula 2 06/01/23 09:30 06/01/23 09:30 06/01/23 09:30 06/01/23 09:30 06/01/23 09:30 06/01/23 09:55 06/01/23 09:55 FiO2 2 06/01/23 09:00 Laboratory Results - last 24 hr 05/31/23 07:40: Blood Type AB Positive, Antibody Screen Negative, Crossmatch (AHG) See Detail 05/31/23 11:35: Troponin I 0.06 H 05/31/23 13:15: Hgb 9.6 L D, Hct 27.6 L 05/31/23 14:58: Troponin I 0.13 H 05/31/23 20:16: Hgb 8.0 L D, Hct 23.5 L 06/01/23 00:43: Stool Occult Blood Positive A 06/01/23 05:17: PT 15.1 H, INR 1.43 H, Sodium 138, Potassium 3.8, Chloride 109 H, Carbon Dioxide 27, Anion Gap 5.8, BUN 38 H, Creatinine 0.60 L D, Estimated Creat Clear 54, Estimated GFR 131, Est GFR ( Amer) 158 D, Glucose 80 D, Calcium 8.0 L 06/01/23 08:57: WBC 12.0 H, RBC 2.79 L, Hgb 8.2 L, Hct 24.4 L, MCV 87.5, MCH 29.4, MCHC 33.6, RDW 21.8 H, Plt Count 176, MPV 9.0, Neut % (Auto) 85.5 H, Lymph % (Auto) 9.0 L, [place] % (Auto) 4.6, Eos % (Auto) 0.8, Baso % (Auto) 0.1, Neut # (Auto) 10.2 H, Lymph # (Auto) 1.1, [place] # (Auto) 0.6, Eos # (Auto) 0.1, Baso # (Auto) 0.0 I & O for Last 24 hours: Intake & Output 05/29/23 05/30/23 05/31/23 06/01/23 23:59 23:59 23:59 23:59 Intake Total 520.31 / 917.31 397 / 397 Output Total 200 / 200 0 / 0 Balance 320.31 / 717.31 397 / 397 Weight 60.895 kg 61.326 kg Constitutional Constitutional: no acute distress *Routine HEENT Exam Head: Present normocephalic Eye: Present EOMI and PERRL ENT: Present mucous membranes moist *Routine Neck Exam Neck: Present supple; Absent lymphadenopathy *Routine Respiratory Exam Respiratory: Present CTA bilaterally *Routine Cardiovascular Exam Cardiovascular: Present RRR *Routine Abdominal Exam Abdominal: Present soft and normoactive bowel sounds; Absent tenderness *Routine Extremities Exam Extremities: Absent cyanosis, clubbing or edema *Routine Skin Exam Skin: Present warm; Absent rash *Routine Neurological Exam Neurological: Present alert and oriented X3 Assessment and Plan *Assessment and plan (1) Acute upper gastrointestinal bleeding: Status: Acute Category: Medical Code(s): K92.2 - Gastrointestinal hemorrhage, unspecified (2) Acute blood loss anemia: Status: Acute Category: Medical Code(s): D62 - Acute posthemorrhagic anemia (3) Type 2 [place] (myocardial infarction): Status: Acute Category: Medical Code(s): I21.A1 - Myocardial infarction type 2 (4) Nausea vomiting and diarrhea: Status: Acute Category: Medical Code(s): R11.2 - Nausea with vomiting, unspecified; R19.7 - Diarrhea, unspecified (5) Coagulopathy: Status: Acute Category: Medical Code(s): D68.9 - Coagulation defect, unspecified (6) Ischemic colitis: Status: Chronic Category: Medical Code(s): K55.9 - Vascular disorder of intestine, unspecified Plan Assessment and plan Melanotic stools GIB Anemia likely anemia of blood loss Coagulopathy Start IV PPI Status post 2 units packed red blood cells Status post Kcentra Status post 2 units FFP Hold antiplatelets anticoagulants General surgery consulted, s/p EGD, did show PUD, continue IV PPI clear liquid diet ordered Monitor hemoglobin, replace if hemoglobin less than 7 IV fluid therapy Transaminitis - monitor Elevated troponin - trending up - consult Cardiology - likely demand ischemia DM ISS
--- NOTE | 2023-06-01 10:59 | CA_ITS ---
APPROVED REPORT EXAM: Comprehensive 2D, Doppler, and color-flow Echocardiogram Stitch Bonding Machine Tender: Mary Blackwell RDCS Ht: 5 ft 6 in Wt: 135lbs BSA: 1.69 BP: 146/66 mmHg Indications: elevated troponin, CAD, h/o AF, COPD, smoker, HTN, hyperlipidemia, h/o lung cancer M-Mode Dimensions RVDd 1.29 cm (0.9-2.6) LA Diam 3.66 cm (1.9-4.0) LVDd 6.26 cm (3.5-5.7) LVDs 4.90 cm (3.5-5.7) IVSd 0.84 cm (0.6-1.1) PWd 0.72 cm (0.6-1.1) EF (Teich) 43.10% FS 21.70% EDV (Teich) 198.30 mL ESV (Teich) 112.80 mL LV Diastology E Decel Time 283 (160-240 msec) E/A Ratio 0.7 Aortic Valve RELL Index 0.79 cm2/m2 AoV Peak Moises. 298.0 (50-130 cm/s) AO Peak GR. 35.40 mmHg AO Mean GR. 17.30 (<5 mmHg) AO VTI 53.1 (18-25 cm) RELL (VTI) 1.36 (2.5-4.5 cm2) Mitral Valve MV E Max Moises. 108.0 (40-130 cm/s) MV A Velocity 155.0 (40-130 cm/s) E/A Ratio 0.70 MV PHT 83.0 ms Left Ventricle The left ventricle is normal size. The left ventricular systolic function is normal. The left ventricular ejection fraction is within the normal range. There is increased LV wall thickness. There is normal LV segmental wall motion. Diastolic function is indeterminate. LVEF is 55%. Right Ventricle The right ventricle is mildly dilated. The right ventricular systolic function is normal. Atria The left atrium size is normal. The right atrium size is normal. There is no Doppler evidence of interatrial shunt. Aortic Valve The aortic valve is moderately thickened. Mild to moderate aortic stenosis. RELL by continuity equation 1.4 cm???. Peak velocity 3.0 m/s. Mean AV gradient 18 mmHg. Max AV gradient 36 mmHg. DI=0.62. SVi=41 ml/m2. Mild aortic regurgitation. Mitral Valve Moderate mitral annular calcification. The mitral valve leaflets are mildly thickened. No evidence of mitral valve stenosis. Mean MV gradient 4 mmHg (HR 77 bpm). Mild mitral regurgitation. Tricuspid Valve The tricuspid valve leaflets are thin and pliable. Trace tricuspid regurgitation. RVSP is normal. Pulmonic Valve The pulmonary valve is normal in structure. Mild pulmonic regurgitation. Great Vessels The aortic root is not well-visualized. IVC is normal in size and collapses >50% with inspiration. Pericardium There is no pericardial effusion. Other Information Study Quality: Fair Conclusion Normal biventricular systolic function. Mild RV dilation. Moderately thickened AV. Mild AI. Mild to moderate (RELL by continuity equation 1.4 cm???. Peak velocity 3.0 m/s. Mean AV gradient 18 mmHg. Max AV gradient 36 mmHg. DI=0.62. SVi=41 ml/m2) Mild MR. Mild PI. Electronically signed by : Manisha Gonzalez MD 06/05/2023 12:20:33
[2023-06-01 11:09] LABS: Lymphocytes % 11 % (10-50); Monocytes % 4 % (2-9); Neutrophils % 85 % (42-76); Platelet Estimate Normal; RBC Morphology Normal; Total Cells Counted 100
[2023-06-01] MEDS: MORPHINE 2MG/ML SYRINGE 2 MG IV (14:22)
--- NOTE | 2023-06-01 16:58 | PC.NURSE ---
Pt aox 4, up with assist times one, pain meds given once this shift, 20g LETICIA ns @ 75 ml/ hr, 20g r hand sl, egd done today see results, possible d/c on sunday or sunday.
[2023-06-01] MEDS: SODIUM CHLORIDE 0.9% 10ML FLUSH SYRINGE 10 ML IV (20:02)
[2023-06-01] MEDS: OXYCODONE 10MG W/APAP 325MG TABLET 1 EACH PO (20:02)
[2023-06-01 21:21] LABS: Basophils % 0.2 % (0.1-2.0); Eosinophils # 0.1 K/mm3 (0.0-0.4); Eosinophils % 0.8 % (0.1-12.0); Lymphocytes % 12.7 % (10-50); Mean Corpuscular HGB Conc 33.3 g/dL (31.8-35.4); Mean Corpuscular Hemoglobin 29.5 pg (27.0-31.2); Mean Corpuscular Volume 88.6 fl (80-94); Mean Platelet Volume 10.1 fl (7.4-10.4); Monocytes # 0.4 K/mm3 (0.1-1.0); Monocytes % 4.9 % (1.7-9.3); Neutrophils # 6.2 K/mm3 (1.8-7.8); Neutrophils % 81.4 % (37.0-80.0); Platelet Count 152 K/mm3 (142-424); Red Blood Count 2.37 M/mm3 (4.60-6.20); Red Cell Distribution Width 22.5 % (11.5-17.5); White Blood Count 7.6 K/mm3 (4.8-10.8)
--- NOTE | 2023-06-01 21:31 | PC.NURSE ---
2119 LAB CALLED WITH CRITICAL H&H: 7 AND 21. JULISA ELY NOTIFIED
[2023-06-02] VITALS (7 sets, daily range): BP systolic 118–147; BP diastolic 51–76; PULSE 67–93; RESP 14–20; TEMP 36.4–37.1; O2SAT 92–96; BMI 22.2
[2023-06-02] MEDS: 0.9 % SODIUM CHLORIDE 1000ML 1,000 ML 75 ML IV (00:14)
[2023-06-02 02:19] LABS: Hemoglobin 7.9 g/dL (14.1-18.0)
--- NOTE | 2023-06-02 03:03 | PC.NURSE ---
PATIENT RECEIVED 1 UNIT PRBCs COMPLETED AT [facility]. NO S/S OF ADVERSE EFFECTS. 2 HR POST TRANSFUSION H&H WAS 7.9 AND 24. JHOANA N.P. AWARE. VITAL SIGNS STABLE. NO C/O PAIN OR DISCOMFORT. NO REPORTS OF BLOODY STOOLS OR HEMATEMESIS. REMAINS ON CONTACT ENTERIC PRECAUTIONS DUE TO C DIFF.
[2023-06-02] MEDS: PANTOPRAZOLE 40MG VIAL 40 MG IV (08:40)
[2023-06-02] MEDS: OXYCODONE 10MG W/APAP 325MG TABLET 1 EACH PO (09:15)
[2023-06-02 09:30] LABS: Basophils % 0.3 % (0.1-2.0); Lymphocytes # 0.8 K/mm3 (0.7-4.5); Mean Corpuscular HGB Conc 33.7 g/dL (31.8-35.4); Mean Corpuscular Volume 87.7 fl (80-94); Monocytes # 0.3 K/mm3 (0.1-1.0); Red Cell Distribution Width 21.1 % (11.5-17.5)
[2023-06-02 09:44] LABS: Eosinophils # 0.1 K/mm3 (0.0-0.4); Eosinophils % 1.5 % (0.1-12.0); Hematocrit 30.3 % (42.0-52.0); Lymphocytes % 10.2 % (10-50); Mean Corpuscular Hemoglobin 29.5 pg (27.0-31.2); Monocytes % 4.2 % (1.7-9.3); Neutrophils # 6.8 K/mm3 (1.8-7.8); Neutrophils % 83.8 % (37.0-80.0); Platelet Count 165 K/mm3 (142-424); Red Blood Count 3.46 M/mm3 (4.60-6.20); White Blood Count 8.1 K/mm3 (4.8-10.8)
[2023-06-02 10:02] LABS: Hemoglobin 10.2 g/dL (14.1-18.0)
--- NOTE | 2023-06-02 12:27 | P.DS_ITS ---
General Admission date:: 05/31/23 Discharge date: 06/02/23 HPI HPI HPI: Patient is a 89-year-old male with past medical history of ischemic colitis who presents to the hospital due to black bloody stools. According to the patient he was recently started on aspirin, he is currently also on Xarelto for his ischemic colitis. He recently started noticing black-colored stools, he also has associated nausea, he had vomiting which seems to have blood as well. Patient otherwise denies chest pain shortness of breath nausea vomiting diarrhea constipation dysuria fever chills. He has abdominal discomfort Hospital Course Hospital Course Hospital Course: Patient was seen and evaluated at the bedside on the day of discharge. Patient wishes to be discharged. All patient questions were answered and patient was given time to ask questions. Patient was discharged in stable condition. Patient understands that she can return to ER in case of any sudden changes in health. Total time spent on DC - 38 mins Melanotic stools - resolved GIB - resolved Anemia likely anemia of blood loss - improved Coagulopathy - resolved DC on Protonix BID hold ASA at DC, ok to resume xarelto Transaminitis - monitor Elevated troponin - ACS ruled out, demand ischemia DM ISS Exam Data for Last 24 hours Vital signs and Labs for Last 24 Hours: Temp Pulse Resp BP Pulse Ox O2 Del Method O2 Flow Rate 98.7 F 77 20 147/51 H 96 Room Air 2 06/02/23 11:26 06/02/23 11:26 06/02/23 11:26 06/02/23 11:26 06/02/23 11:26 06/02/23 11:26 06/01/23 09:55 FiO2 2 06/01/23 09:00 Laboratory Results - last 24 hr 05/31/23 07:40: Blood Type AB Positive, Antibody Screen Negative, Crossmatch (AHG) See Detail 06/01/23 21:09: WBC 7.6 D, RBC 2.37 L, Hgb 7.0 L, Hct 21.0 L, MCV 88.6, MCH 29.5, MCHC 33.3, RDW 22.5 H, Plt Count 152, MPV 10.1, Neut % (Auto) 81.4 H, Lymph % (Auto) 12.7, [place] % (Auto) 4.9, Eos % (Auto) 0.8, Baso % (Auto) 0.2, Neut # (Auto) 6.2, Lymph # (Auto) 1.0, [place] # (Auto) 0.4, Eos # (Auto) 0.1, Baso # (Auto) 0.0 06/02/23 02:09: Hgb 7.9 L D, Hct 24.0 L 06/02/23 09:15: WBC 8.1, RBC 3.46 L D, Hgb 10.2 L D, Hct 30.3 L, MCV 87.7, MCH 29.5, MCHC 33.7, RDW 21.1 H, Plt Count 165, MPV 9.0, Neut % (Auto) 83.8 H, Lymph % (Auto) 10.2, [place] % (Auto) 4.2, Eos % (Auto) 1.5, Baso % (Auto) 0.3, Neut # (Auto) 6.8, Lymph # (Auto) 0.8, [place] # (Auto) 0.3, Eos # (Auto) 0.1, Baso # (Auto) 0.0 I & O for Last 24 hours: Intake & Output 05/30/23 05/31/23 06/01/23 06/02/23 23:59 23:59 23:59 23:59 Intake Total 520.31 / 917.31 1237 / 1787 1340 / 1340 Output Total 200 / 200 0 / 0 400 / 400 Balance 320.31 / 717.31 1237 / 1787 940 / 940 Weight 60.895 kg 61.36 kg 62.823 kg Constitutional Constitutional: no acute distress *Routine HEENT Exam Head: Present normocephalic Eye: Present EOMI and PERRL ENT: Present mucous membranes moist *Routine Neck Exam Neck: Present supple; Absent lymphadenopathy *Routine Respiratory Exam Respiratory: Present CTA bilaterally *Routine Cardiovascular Exam Cardiovascular: Present RRR *Routine Abdominal Exam Abdominal: Present soft and normoactive bowel sounds; Absent tenderness *Routine Extremities Exam Extremities: Absent cyanosis, clubbing or edema *Routine Skin Exam Skin: Present warm; Absent rash *Routine Neurological Exam Neurological: Present alert and oriented X3 Results Data Completed and Pending Labs on day of discharge: Labs from last 24 hours 06/02/23 06/02/23 06/01/23 09:15 02:09 21:09 WBC 8.1 7.6 D RBC 3.46 L D 2.37 L Hgb 10.2 L D 7.9 L D 7.0 L Hct 30.3 L 24.0 L 21.0 L MCV 87.7 88.6 MCH 29.5 29.5 MCHC 33.7 33.3 RDW 21.1 H 22.5 H Plt Count 165 152 MPV 9.0 10.1 Neut % (Auto) 83.8 H 81.4 H Lymph % (Auto) 10.2 12.7 [place] % (Auto) 4.2 4.9 Eos % (Auto) 1.5 0.8 Baso % (Auto) 0.3 0.2 Neut # (Auto) 6.8 6.2 Lymph # (Auto) 0.8 1.0 [place] # (Auto) 0.3 0.4 Eos # (Auto) 0.1 0.1 Baso # (Auto) 0.0 0.0 Blood Type Antibody Screen Crossmatch ([facility]) 05/31/23 07:40 WBC RBC Hgb Hct MCV MCH MCHC RDW Plt Count MPV Neut % (Auto) Lymph % (Auto) [place] % (Auto) Eos % (Auto) Baso % (Auto) Neut # (Auto) Lymph # (Auto) [place] # (Auto) Eos # (Auto) Baso # (Auto) Blood Type AB Positive Antibody Screen Negative Crossmatch ([facility]) See Detail DS: Diagnosis Discharge Diagnosis (1) Acute upper gastrointestinal bleeding: Status: Acute Code(s): K92.2 - Gastrointestinal hemorrhage, unspecified (2) Acute blood loss anemia: Status: Acute Code(s): D62 - Acute posthemorrhagic anemia (3) Type 2 [place] (myocardial infarction): Status: Acute Code(s): I21.A1 - Myocardial infarction type 2 (4) Ischemic colitis: Status: Chronic Code(s): K55.9 - Vascular disorder of intestine, unspecified (5) Paroxysmal atrial fibrillation: Status: Acute Code(s): I48.0 - Paroxysmal atrial fibrillation (6) CAD (coronary artery disease): Status: Acute Code(s): I25.10 - Atherosclerotic heart disease of [place] coronary artery without angina pectoris Qualifiers: Coronary Disease-Associated Artery/Lesion type: bypass graft [place] vs. transplanted heart: [place] heart Associated angina: without angina Qualified Code(s): I25.810 - Atherosclerosis of coronary artery bypass graft(s) without angina pectoris (7) Vasculopathy: Status: Acute Code(s): I99.9 - Unspecified disorder of circulatory system Meds Home Medications and Allergies Home Medications Medication Instructions Recorded Confirmed Type albuterol sulfate 90 mcg/actuation 2 puff inhalation QIDP PRN 08/27/17 05/31/23 History aerosol inhaler (Ventolin HFA) Shortness Of Breath folic acid 1 mg tablet 1 mg PO DAILY Supplement 08/27/17 05/31/23 History fluticasone propionate 50 2 spray intranasal DAILY 08/18/22 05/31/23 History mcg/actuation nasal spray,suspension (Flonase Allergy Relief) mirtazapine 15 mg tablet 7.5 mg PO HS 09/01/22 05/31/23 History multivitamin 1 tab PO DAILY Supplement 09/25/22 05/31/23 History montelukast 10 mg tablet 10 mg PO HS 02/25/23 05/31/23 History atorvastatin 80 mg tablet 80 mg PO HS #30 tabs 04/02/23 05/31/23 Rx isosorbide mononitrate 30 mg 30 mg PO DAILY #90 tabs 04/02/23 05/31/23 Rx tablet,extended release 24 hr metoprolol succinate 50 mg 50 mg PO DAILY #90 tabs 04/02/23 05/31/23 Rx tablet,extended release 24 hr rivaroxaban 20 mg tablet 20 mg PO HS #30 tabs 04/02/23 05/31/23 Rx spironolactone 25 mg tablet 25 mg PO DAILY 90 days #90 tabs 05/04/23 05/31/23 Rx fluticasone fur. 100 mcg-umeclid 1 inh inhalation DAILY 90 days #90 05/15/23 05/31/23 Rx 62.5 mcg-vilant 25 mcg ea inhalat.powder (Trelegy Ellipta) aspirin 81 mg tablet,delayed 81 mg PO DAILY #30 tabs 05/23/23 05/31/23 Rx release (Adult Aspirin Regimen) cetirizine 10 mg tablet 10 mg PO DAILY 05/31/23 05/31/23 History oxycodone 10 mg tablet 10 mg PO BIDP PRN pain (scale 05/31/23 05/31/23 History score 7-10) pantoprazole 40 mg tablet,delayed 40 mg PO BID Acid reflux #90 tabs 06/02/23 05/31/23 Rx release New Prescriptions to Start Prescriptions: Allergies Allergy/AdvReac Type Severity Reaction Status Date / Time Penicillins Allergy Intermediate I-ITCHING; Verified 05/31/23 12:23 SWELLING Antihistamines - Ethanolamine Allergy Unknown Unknown Verified 05/31/23 12:23 allergy reaction [place] nut Allergy Rash Verified 05/31/23 12:23 doxycycline AdvReac Mild Rash Verified 05/31/23 12:23 Discharge Plan Disposition Patient Disposition: Home, Self-Care Condition: Good Discharge Order Discharge Orders: Discharge Order (Routine); Ordered 06/02/23 Ordered By: Abraham Esteves Follow up Plan Follow up with: Curtis Montes MD [Primary Care Provider] - 06/06/23 12:15 pm Kyle Rice MD [Staff Physician] - 06/06/23 11:15 am Prescriptions/Medication Reconciliation: Continued folic acid 1 mg tablet 1 mg PO DAILY albuterol sulfate [Ventolin HFA] 90 mcg/actuation HFA aerosol inhaler 2 puff IH QIDP PRN (Reason: Shortness Of Breath) multivitamin Tablet 1 tab PO DAILY Trelegy Ellipta 100-62.5-25 mcg blister with device 1 inh inhalation DAILY 90 Days Qty: 90 2RF atorvastatin 80 mg tablet 80 mg PO HS Qty: 30 5RF isosorbide mononitrate 30 mg tablet extended release 24 hr 30 mg PO DAILY Qty: 90 5RF metoprolol succinate 50 mg tablet extended release 24 hr 50 mg PO DAILY Qty: 90 3RF rivaroxaban 20 mg tablet 20 mg PO HS Qty: 30 5RF spironolactone 25 mg tablet 25 mg PO DAILY 90 Days Qty: 90 3RF fluticasone propionate [Flonase Allergy Relief] 50 mcg/actuation spray,suspension 2 spray intranasal DAILY Rx Instructions: administer into each nostril montelukast 10 mg tablet 10 mg PO HS Patient Comments: TAKE 1 TABLET BY MOUTH ONCE DAILY cetirizine 10 mg tablet 10 mg PO DAILY Patient Comments: TAKE 1 TABLET BY MOUTH ONCE DAILY oxycodone 10 mg tablet 10 mg PO BIDP PRN (Reason: pain (scale score 7-10)) mirtazapine 15 mg tablet 7.5 mg PO HS Changed pantoprazole 40 mg tablet,delayed release (DR/EC) 40 mg PO BID Qty: 90 1RF Patient Comments: TAKE 1 TABLET BY MOUTH ONCE DAILY Held aspirin [Adult Aspirin Regimen] 81 mg tablet,delayed release (DR/EC) 81 mg PO DAILY Qty: 30 5RF Hold Instructions: Resume on 06/09/23. Problem Reconciliation Problems Reviewed?: Yes Patient Discharge Instructions ACTIVITY: Ambulate as tolerated DIET: advance to your usual diet Patient Instructions: DI for Gastrointestinal Bleeding Providers Primary Care Provider: Curtis Montes Admit Provider: Abraham Esteves Attending Provider: Abraham Esteves
--- NOTE | 2023-06-02 14:42 | P.PN_ITS ---
Subjective Patient reports: no new complaints and tolerating a regular diet Narrative: Denies hematochizia, melena, hematemesis. Exam Data for Last 24 hours Vital signs and Labs for Last 24 Hours: Temp Pulse Resp BP Pulse Ox O2 Del Method O2 Flow Rate 98.7 F 70 20 147/51 H 96 Room Air 2 06/02/23 11:26 06/02/23 12:00 06/02/23 11:26 06/02/23 11:26 06/02/23 11:26 06/02/23 12:41 06/01/23 09:55 FiO2 2 06/01/23 09:00 Laboratory Results - last 24 hr 05/31/23 07:40: Blood Type AB Positive, Antibody Screen Negative, Crossmatch (AHG) See Detail 06/01/23 21:09: WBC 7.6 D, RBC 2.37 L, Hgb 7.0 L, Hct 21.0 L, MCV 88.6, MCH 29.5, MCHC 33.3, RDW 22.5 H, Plt Count 152, MPV 10.1, Neut % (Auto) 81.4 H, Lymph % (Auto) 12.7, [place] % (Auto) 4.9, Eos % (Auto) 0.8, Baso % (Auto) 0.2, Neut # (Auto) 6.2, Lymph # (Auto) 1.0, [place] # (Auto) 0.4, Eos # (Auto) 0.1, Baso # (Auto) 0.0 06/02/23 02:09: Hgb 7.9 L D, Hct 24.0 L 06/02/23 09:15: WBC 8.1, RBC 3.46 L D, Hgb 10.2 L D, Hct 30.3 L, MCV 87.7, MCH 29.5, MCHC 33.7, RDW 21.1 H, Plt Count 165, MPV 9.0, Neut % (Auto) 83.8 H, Lymph % (Auto) 10.2, [place] % (Auto) 4.2, Eos % (Auto) 1.5, Baso % (Auto) 0.3, Neut # ( Auto) 6.8, Lymph # (Auto) 0.8, [place] # (Auto) 0.3, Eos # (Auto) 0.1, Baso # (Auto) 0.0 I & O for Last 24 hours: Intake & Output 05/30/23 05/31/23 06/01/23 06/02/23 23:59 23:59 23:59 23:59 Intake Total 520.31 / 917.31 1237 / 1787 1775 / 1775 Output Total 200 / 200 0 / 0 400 / 400 Balance 320.31 / 717.31 1237 / 1787 1375 / 1375 Weight 134 lb 4 oz 135 lb 4.41 oz 138 lb 8 oz Constitutional Constitutional: no acute distress and cooperative *Routine Abdominal Exam Comments: soft, NTND. midline incisional hernia is soft and reducible. Progress Note: A&P Assessment and plan (1) Acute upper gastrointestinal bleeding: Status: Acute Assessment and plan: Stable Hgb. No further signs of bleeding s/p EGD yesterday showing multiple punctate and linear ulcers of proximal and mid stomach, and an area of active oozing that improved after epinephrine injection and clipping. Ok to resume Xarelto, hold ASA and other ulcerogenics such as steroids/NSAIDs x 2 weeks, and f/u with DR. Rice in 2 weeks. BID PPI. Discussed plan with patient and his family. (2) Acute blood loss anemia: Status: Acute (3) Type 2 [place] (myocardial infarction): Status: Acute (4) Ischemic colitis: Status: Chronic (5) Paroxysmal atrial fibrillation: Status: Acute (6) CAD (coronary artery disease): Status: Acute (7) Vasculopathy: Status: Acute
--- NOTE | 2023-06-04 12:47 | CARE MANAGER ---
Contacted patient's who states that he is doing better. He is holding his aspirin and is aware of follow up appointments. Denies questions or concerns. JYOTI Main
[2023-06-05 10:49] LABS: Clostridium Difficile A/B, PCR Detected (NotDetected)
--- NOTE | 2023-06-05 11:14 | PC.NURSE ---
STOOL PANEL RESULTS + FOR C-DIFF. CONTACTED DR. HOFF WHICH IS PT'S PCP. PT HAS APPOINTMENT 06/06/2023. WILL ADDRESS AT THAT TIME PER DR. HOFF
== END 2023-06-02 15:06 | disposition home or self-care (01) | DRG 377 ==
LOC: ER 09:42 → 2ND 13:09
PROVIDERS: Nurse Practitioner Critical Care Medicine; Surgery; Admitting Provider Internal Medicine; Emergency Provider Student in an Organized Health Care Education/Training Program; PCP Internal Medicine Adolescent Medicine; Visit Provider Internal Medicine
PROC: 0DJ08ZZ Inspection of Upper Intestinal Tract, Via Natural or Artificial Opening Endoscopic (ICD-10-PCS; CPT 43235; principal; 2023-06-01 07:00)
DX: K29.71 Gastritis, unspecified, with bleeding (principal); I21.A1 Myocardial infarction type 2; D62 Acute posthemorrhagic anemia; K55.9 Vascular disorder of intestine, unspecified; I50.20 Unspecified systolic (congestive) heart failure; I25.10 Atherosclerotic heart disease of native coronary artery without angina pectoris; I99.9 Unspecified disorder of circulatory system; Z95.1 Presence of aortocoronary bypass graft; I73.9 Peripheral vascular disease, unspecified; I48.91 Unspecified atrial fibrillation; J44.9 Chronic obstructive pulmonary disease, unspecified
CPT/HCPCS: 43255; 43239; 36415; 74174; 80048; 80053; 82272; 83690; 83735; 84100; 84484; 85007; 85014; 85018; 85025; 85610; 85730; 86850; 87507; 88305; 93005; 93306; 99291; G0328; J2405; J7168; P9016; P9017; Q9967

== ENCOUNTER 2023-06-06 11:45 | Outpatient (CLI) | payer MEDICARE, OTHER, SELFPAY ==
--- NOTE | 2023-06-06 12:05 | PC.NURSE ---
1159-collected labs via venipuncture stick x 2 in right hand with butterfly needle; pt to d/c home
[2023-06-06 12:22] LABS: Hematocrit 34.9 % (42.0-52.0); Hemoglobin 10.9 g/dL (14.1-18.0)
== END 2023-06-06 12:05 | disposition home or self-care (01) ==
LOC: LAB 11:46 → INF 11:48
PROVIDERS: PCP Internal Medicine Adolescent Medicine; Visit Provider Surgery
DX: D64.9 Anemia, unspecified (principal)
CPT/HCPCS: 36415; 85014; 85018

== ENCOUNTER 2023-06-10 13:25 | Outpatient (CLI) | payer MEDICARE, OTHER, SELFPAY ==
[2023-06-10 13:25] VITALS: BP 126/84; RESP 16; TEMP 37; O2SAT 95; BMI 22.2
[2023-06-10] MEDS: PROMETHAZINE HCL 25MG/ML 1ML VIAL 25 MG IV (13:51)
[2023-06-10] MEDS: 0.9 % SODIUM CHLORIDE 1000ML 1,000 ML 500 ML IV (13:51)
[2023-06-10] MEDS: SODIUM CHLORIDE 0.9% 25ML BAG 25 ML IV (13:52)
[2023-06-10 14:31] LABS: Basophils % 0.1 % (0.1-2.0); Eosinophils # 0.1 K/mm3 (0.0-0.4); Eosinophils % 0.4 % (0.1-12.0); Hematocrit 32.9 % (42.0-52.0); Hemoglobin 10.3 g/dL (14.1-18.0); Lymphocytes % 5.4 % (10-50); Mean Corpuscular HGB Conc 31.3 g/dL (31.8-35.4); Mean Corpuscular Volume 92.7 fl (80-94); Monocytes # 0.9 K/mm3 (0.1-1.0); Monocytes % 5.1 % (1.7-9.3); Neutrophils # 16.1 K/mm3 (1.8-7.8); Platelet Count 328 K/mm3 (142-424); Red Blood Count 3.55 M/mm3 (4.60-6.20); Red Cell Distribution Width 20.2 % (11.5-17.5); White Blood Count 18.1 K/mm3 (4.8-10.8)
[2023-06-10 14:39] LABS: Chloride 102 mmol/L (98-107); Potassium 3.6 mmoL/L (3.5-5.1); Sodium 136 mmol/L (136-145)
[2023-06-10 14:42] LABS: Alanine Aminotransferase 67 U/L (12-78); Albumin Level 3.9 g/dl (3.5-5.0); Albumin/Globulin Ratio 1.1 (1.1-1.8); Alkaline Phosphatase 94 U/L (38-126); Anion Gap 6.6 mEq/L (5-15); Aspartate Amino Transferase 32 U/L (17-59); Bilirubin,Total 1.1 mg/dl (0.2-1.3); Blood Urea Nitrogen 17 mg/dl (9-20); Calcium 8.8 mg/dl (8.4-10.2); Carbon Dioxide 31 mmol/L (22.0-30.0); Creatinine Clearance Estimated 55 mL/min (50-200); Estimated Glomerular Filt Rate 94 ml/min (>60); GFR (African American) 113 ML/MIN (>60); Globulin 3.4 g/dL (1.3-3.2); Glucose 112 mg/dl (74-100); Total Protein,Serum 7.3 g/dl (6.3-8.2)
[2023-06-10 14:49] LABS: MANUAL DIFFERENTIAL MANUAL DIFFERENTIAL (MANUAL DIFF)
[2023-06-10 16:05] LABS: Hypochromasia 1+; Lymphocytes % 13 % (10-50); Monocytes % 1 % (2-9); Neutrophils % 86 % (42-76); Platelet Estimate Normal; Target Cells 1+; Total Cells Counted 100
== END 2023-06-10 23:59 ==
LOC: INF 13:28
PROVIDERS: PCP Internal Medicine Adolescent Medicine; Visit Provider Internal Medicine Adolescent Medicine
DX: K92.2 Gastrointestinal hemorrhage, unspecified (principal)
CPT/HCPCS: 80053; 85007; 85025; 96360; 96375

== ENCOUNTER 2023-06-10 15:14 | Emergency (ER) | payer MEDICARE, OTHER, SELFPAY ==
[2023-06-10 15:16] VITALS: BP 163/71; PULSE 75; RESP 18; TEMP 36.9; O2SAT 98; BMI 20.9
--- NOTE | 2023-06-10 15:45 | PC.NURSE ---
Dr. Medina at bedside
[2023-06-10 15:46] VITALS: BP 172/71; PULSE 73; O2SAT 99
--- NOTE | 2023-06-10 15:51 | CT_ITS ---
PROCEDURE INFORMATION: Exam: CT Abdomen And Pelvis With Contrast Exam date and time: 06/10/2023 4:05 PM Age: 78 years old Clinical indication: Abdominal pain; Generalized; Additional info: C diff, diffuse pain TECHNIQUE: Imaging protocol: Computed tomography of the abdomen and pelvis with contrast. Radiation optimization: All CT scans at this facility use at least one of these dose optimization techniques: automated exposure control; mA and/or kV adjustment per patient size (includes targeted exams where dose is matched to clinical indication); or iterative reconstruction. Contrast material: ISOVUE; Contrast volume: 75 ml; Contrast route: IV; COMPARISON: CT ANGIO ABDOMEN PELVIS 05/31/2023 8:03 AM FINDINGS: Lungs: Mild patchy bronchiolitis at the lung bases, stable. Liver: There are few small hypodensities within the liver too small to adequately characterize but statistically likely representing small liver cysts. Gallbladder and bile ducts: Normal. No calcified stones. No ductal dilation. Pancreas: Unremarkable. Main pancreatic duct is not significantly dilated. Spleen: Normal. No splenomegaly. Adrenal glands: Normal. No mass. Kidneys and ureters: Multiple bilateral renal cysts relatively stable. Kidneys are otherwise unremarkable. Stomach and bowel: Partial right hemicolectomy. Multiple diverticuli sigmoid colon. No evidence of diverticulitis or segmental colitis. Appendix: No evidence of appendicitis. Intraperitoneal space: Unremarkable. No free air. No significant fluid collection. Vasculature: Extensive atherosclerotic calcifications throughout the abdominal aorta iliac vessels and mesenteric branches resulting in narrowing at the origin of multiple mesenteric vessels. Lymph nodes: Unremarkable. No enlarged lymph nodes. Urinary bladder: Unremarkable as visualized. Reproductive: Prostate gland is mildly enlarged. Bones/joints: Unremarkable. No acute fracture. Soft tissues: Stable postsurgical changes right groin site. Stable diastasis of the upper abdominal wall above the umbilicus. IMPRESSION: 1. Distal colonic diverticulosis. No evidence of acute diverticulitis or colitis. 2. Extensive atherosclerotic changes resulting in narrowing of multiple vessels including mesenteric branches. 3. Mild bibasilar bronchiolitis, unchanged. 4. Additional chronic findings as above.
--- NOTE | 2023-06-10 15:52 | HMH.EDGENADL ---
Discharge Plan Disposition Patient Disposition: Home, Self-Care Chief Complaint: Nausea/Vomiting/Diarrhea Prescriptions Prescriptions: No Action folic acid 1 mg tablet 1 mg PO DAILY albuterol sulfate [Ventolin HFA] 90 mcg/actuation HFA aerosol inhaler 2 puff IH QIDP PRN (Reason: Shortness Of Breath) multivitamin Tablet 1 tab PO DAILY Trelegy Ellipta 100-62.5-25 mcg blister with device 1 inh inhalation DAILY 90 Days Qty: 90 2RF atorvastatin 80 mg tablet 80 mg PO HS Qty: 30 5RF isosorbide mononitrate 30 mg tablet extended release 24 hr 30 mg PO DAILY Qty: 90 5RF metoprolol succinate 50 mg tablet extended release 24 hr 50 mg PO DAILY Qty: 90 3RF rivaroxaban 20 mg tablet 20 mg PO HS Qty: 30 5RF spironolactone 25 mg tablet 25 mg PO DAILY 90 Days Qty: 90 3RF aspirin [Adult Aspirin Regimen] 81 mg tablet,delayed release (DR/EC) 81 mg PO DAILY Qty: 30 5RF Hold Instructions: Resume on 06/09/23. fluticasone propionate [Flonase Allergy Relief] 50 mcg/actuation spray,suspension 2 spray intranasal DAILY Rx Instructions: administer into each nostril montelukast 10 mg tablet 10 mg PO HS Patient Comments: TAKE 1 TABLET BY MOUTH ONCE DAILY cetirizine 10 mg tablet 10 mg PO DAILY Patient Comments: TAKE 1 TABLET BY MOUTH ONCE DAILY oxycodone 10 mg tablet 10 mg PO BIDP PRN (Reason: pain (scale score 7-10)) pantoprazole 40 mg tablet,delayed release (DR/EC) 40 mg PO BID Qty: 90 1RF Patient Comments: TAKE 1 TABLET BY MOUTH ONCE DAILY mirtazapine 15 mg tablet 7.5 mg PO HS Referrals Follow up/Referrals: Curtis Hoff MD [Primary Care Provider] - See instructions Activity Restrictions/Add. Instructions Additional Instructions/Restrictions: At this time it was felt you are safe to be discharged home. If new or worsening symptoms please do not hesitate to return the emergency department. If symptoms persist please follow-up with your family doctor as you are able this week as discussed. Clinical Impressions Clinical Impression: Abdominal pain, Atherosclerosis Instructions Patient Instructions: DI for Diarrhea and Traveler's Diarrhea -- Adult, DI for Diarrhea and Traveler's Diarrhea -- Child, DI for Nausea -- Adult, DI for Nausea -- Child Discharge ED Provider: Matthew Medina General Adult HPI General Chief complaint: Nausea/Vomiting/Diarrhea Stated complaint: sent by DR. Hoff for leukocytosis Time Seen by Provider: 06/10/23 15:24 Mode of Arrival: Wheelchair Limitations: No Limitations Description of Symptoms (Recalled from ER Triage Doc. by RN): PT HERE PRIOR TO ED VISIT FOR OUTPT INFUSION FOR IVF'S AND PHENERGAN. LABS DRAWN PRIOR TO ED VISIT, LABS DISCUSSED WITH DR HOFF, PCP. DR HOFF WANTS PT EVALUATED. CURRENTLY TREATED FOR C-DIFF. PT REPORTS NAUSEA History of Present Illness HPI narrative: Patient is a 78-year-old male with past medical history of previous C. difficile colitis, previous hernia surgery who presents emergency department for evaluation of not feeling well, nausea, abdominal pain. Patient was previously diagnosed with C. difficile colitis where he completed medical therapy, had 2 to 3-week interval resolution of symptoms. Since Sunday he has had nausea, abdominal pain. Over the last 24 hours he has developed nonbloody diarrhea which has been partially responsive to Imodium. No chest pain. No other acute complaints at this time. He presented to outpatient infusion where he had crystalloid bolus, Phenergan, hematologic labs obtained under the direction of Dr. Hoff, due to having significant leukocytosis he presents here for continued evaluation. Related Data Home Medications Medication Instructions Recorded Confirmed albuterol sulfate 90 mcg/actuation 2 puff inhalation QIDP PRN 08/27/17 06/06/23 aerosol inhaler (Ventolin HFA) Shortness Of Breath folic acid 1 mg tablet 1 mg PO DAILY Supplement 08/27/17 06/06/23 fluticasone propionate 50 2 spray intranasal DAILY 08/18/22 06/06/23 mcg/actuation nasal spray,suspension (Flonase Allergy Relief) mirtazapine 15 mg tablet 7.5 mg PO HS 09/01/22 06/06/23 multivitamin 1 tab PO DAILY Supplement 09/25/22 06/06/23 montelukast 10 mg tablet 10 mg PO HS 02/25/23 06/06/23 cetirizine 10 mg tablet 10 mg PO DAILY 05/31/23 06/06/23 oxycodone 10 mg tablet 10 mg PO BIDP PRN pain (scale 05/31/23 06/06/23 score 7-10) Previous Rx's Medication Instructions Recorded atorvastatin 80 mg tablet 80 mg PO HS #30 tabs 04/02/23 isosorbide mononitrate 30 mg 30 mg PO DAILY #90 tabs 04/02/23 tablet,extended release 24 hr metoprolol succinate 50 mg 50 mg PO DAILY #90 tabs 04/02/23 tablet,extended release 24 hr rivaroxaban 20 mg tablet 20 mg PO HS #30 tabs 04/02/23 spironolactone 25 mg tablet 25 mg PO DAILY 90 days #90 tabs 05/04/23 fluticasone fur. 100 mcg-umeclid 1 inh inhalation DAILY 90 days #90 05/15/23 62.5 mcg-vilant 25 mcg ea inhalat.powder (Trelegy Ellipta) aspirin 81 mg tablet,delayed 81 mg PO DAILY #30 tabs 05/23/23 release (Adult Aspirin Regimen) pantoprazole 40 mg tablet,delayed 40 mg PO BID Acid reflux #90 tabs 06/02/23 release Allergies Allergy/AdvReac Type Severity Reaction Status Date / Time Penicillins Allergy Intermediate I-ITCHING; Verified 06/06/23 11:16 SWELLING Antihistamines - Ethanolamine Allergy Unknown Unknown Verified 06/06/23 11:16 allergy reaction [place] nut Allergy Rash Verified 06/06/23 11:16 doxycycline AdvReac Mild Rash Verified 06/06/23 11:16 [facility] Disclaimer: The information contained in this section may have been updated after the patient was seen, as this information can be updated by other users. Medical History (Updated 06/10/23 @ 17:30 by Matthew Medina MD) Abdominal bruit Abnormal ankle brachial index (JUSTICE) Acute blood loss anemia Acute upper gastrointestinal bleeding Allergic rhinitis C. difficile colitis CAD (coronary artery disease) Cardiac murmur Carotid artery disease Cecum perforation Chronic cough Claudication Claudication Coagulopathy COPD (chronic obstructive pulmonary disease) COPD exacerbation COPD mixed type Dyspnea on exertion H/O: lung cancer Hearing Loss Hearing loss, bilateral Hemoptysis Hyperlipidemia Hypertension Impacted cerumen Incurved toenail Ischemic colitis Laceration of right ear canal Lung nodule Nausea vomiting and diarrhea Non-healing wound Nonhealing nonsurgical wound PAD (peripheral artery disease) Pain around toenail, left foot Paroxysmal atrial fibrillation Peripheral arterial disease Pneumonia PVD (peripheral vascular disease) Respiratory failure Sepsis Small cell lung cancer Smoker Smoking greater than 30 pack years Type 2 [place] (myocardial infarction) Vasculopathy Surgical History (Updated 06/06/23 @ 11:17 by MELLO Torres) H/O angioplasty H/O endarterectomy History of cardiac cath History of carpal tunnel release History of esophagogastroduodenoscopy (EGD) Hx of coronary artery bypass graft S/P femoral-popliteal bypass surgery S/P right hemicolectomy Status post insertion of iliac artery stent Family History Other Asthma Social History Smoking Status: Never smoker alcohol intake: current substance use type: denies use current occupational status: retired Travel in the last 8 weeks: None household members: spouse housing: house marital status: caffeine: Yes ROS Obtained: Yes Systems reviewed as appropriate & no additional complaints except as documented Physical Exam General General appearance: alert and in no apparent distress Head Head exam: atraumatic and normocephalic Eye Eye exam: Present PERRL ENT ENT exam: Present mucous membranes moist Neck Neck exam: Present normal inspection Chest Chest inspection: Present normal inspection and symmetric chest wall rise Respiratory Respiratory exam: Absent respiratory distress Cardiovascular Cardiovascular exam: Present regular rate and normal rhythm Abdominal Exam Abdominal exam: Present soft and tenderness (Diffuse, mild) Extremities Exam Extremities exam: Present normal inspection Neurological Exam Neurological exam: Present alert Psychiatric Psychiatric exam: Present normal affect Skin Skin exam: Present warm and dry Medical Decision Making Ricardo Inquiry Pt receiving controlled substance: No Vital Signs: 06/10/23 15:16 06/10/23 15:46 Temperature 98.4 F Temperature Source Oral Pulse Rate 73 Pulse Rate [Radial] 75 Respiratory Rate 18 Blood Pressure 172/71 H Blood Pressure [Right Arm] 163/71 H Blood Pressure Mean [Right Arm] 101 Blood Pressure Source [Right Arm] Automatic Cuff Blood Pressure Position [Right Arm] Sitting 02 Sat by Pulse Oximetry 98 99 Oxygen Delivery Method Room Air Lab Data Lab Results 06/10/23 14:05: Lipase 27 06/10/23 15:50: SARS-CoV-2 (PCR) Not detected, Influenza A Untype (PCR) Not detected, Influenza Type B (PCR) Not detected 06/10/23 16:20: Urine Color Yellow, Urine Appearance Clear, Urine pH 7.0, Ur Specific [place] 1.010, Urine Protein Negative, Urine Glucose (UA) Negative, Urine Ketones Negative, Urine Blood Negative, Urine Nitrate Negative, Urine Bilirubin Negative, Urine Urobilinogen 0.2, Ur Leukocyte Esterase Negative, Urine RBC None, Urine WBC Occasional, Ur Squamous Epith Cells None, Urine Bacteria None Orders (Tests/Meds): ED MEDICATIONS Generic Name Dose Route Start Last Admin Trade Name Freq PRN Reason Stop Dose Admin Sodium Chloride 10 ml 06/10/23 16:16 06/10/23 16:16 Sodium Chloride 0.9% 10ml Syr (Rad Only) IV 07/10/23 16:15 10 ml NEEDED PRN Administration Maintain IV Site Discontinued Medications Generic Name Dose Route Start Last Admin Trade Name Freq PRN Reason Stop Dose Admin Iopamidol 75 ml 06/10/23 16:16 06/10/23 16:17 Iopamidol-370 (76%);100ml Bottle IV 06/10/23 16:17 75 ml ONCE ONE Administration ORDERS Category Date Time Status CT abdomen pelvis w con Stat Cat Scan 06/10/23 15:51 Completed Lipase Stat Lab 06/10/23 14:05 Completed Rapid PCR Covid and Flu A/B Stat Lab 06/10/23 15:50 Completed Urinalysis-Acute [Urinalysis and Microscopic] Stat Lab 06/10/23 16:20 Completed Medical Decision Narrative: In summary patient is a 78-year-old male with past medical history described above who presents to the emergency department for evaluation abdominal pain and nausea in the setting of previous C. difficile colitis status post medical therapy. Patient is hemodynamically stable nontoxic-appearing upon arrival, afebrile. Differential diagnosis includes recurrent C. difficile colitis, toxic megacolon, pancreatitis, electrolyte abnormality, viral syndrome, among others. Workup will be conducted with hematologic labs, CT abdomen pelvis IV contrast. Patient has received crystalloid bolus and Phenergan just prior to arrival therefore no additional resuscitation is indicated at this time. Hematologic labs obtained prior to arrival reviewed by me, white blood cell count 18.1, no critical electrolyte abnormality, no LO, no elevated anion gap, lipase is 27, urinalysis not consistent with infection. Viral swab obtained by me is negative. CT abdomen pelvis shows diverticulosis without evidence of diverticulitis, extensive atherosclerosis resulting in narrowing of multiple vessels of the mesenteric branches, these are previously evidenced in prior CTAs. Patient with p.o. trial was successful. Given that patient has no anion gap and no acute critical occlusion I do not think patient needs emergent vascular evaluation at this time although may benefit from this on an outpatient basis should his diffuse abdominal pain persist. Given the acuity of this it is likely that he has nonspecific infectious cause of his abdominal pain and diarrhea. These findings were relayed to patient at bedside and patient will follow-up with Dr. Hoff this week for continued evaluation. Critical Care Critical Care Time Critical Care Time: No
--- NOTE | 2023-06-10 16:05 | PC.NURSE ---
PT GONE TO CT
[2023-06-10 16:07] LABS: Lipase 27 U/L (23-300)
[2023-06-10 16:09] LABS: Coronavirus 19, PCR Not Detected (NotDetected); Influenza A, PCR Not Detected (NotDetected); Influenza B, PCR Not Detected (NotDetected)
--- NOTE | 2023-06-10 16:12 | PC.NURSE ---
PT RETURNED FROM CT
[2023-06-10] MEDS: SODIUM CHLORIDE 0.9% 10ML SYR (RAD ONLY) 10 ML IV (16:16)
[2023-06-10] MEDS: IOPAMIDOL-370 (76%);100ML BOTTLE 75 ML IV (16:17)
[2023-06-10 16:47] VITALS: BP 165/68; PULSE 70; RESP 16; O2SAT 97
[2023-06-10 16:47] LABS: Microscopic, Urine URINE MICROSCOPIC (MICROSCOPIC)
[2023-06-10 16:52] LABS: Appearance,Urine CLEAR (Clear); Bilirubin,Urine Negative (Negative); Blood, Urine Negative (Negative); Color,Urine YELLOW (Yellow); Glucose,Urine (UA) Negative (Negative); Ketones,Urine Negative (Negative); Leukocyte Esterase,Urine Negative (Negative); Nitrate,Urine Negative (Negative); Protein,Urine Negative (Negative); Urobilinogen,Urine 0.2 EU/dl (0.2)
--- NOTE | 2023-06-10 16:58 | PC.NURSE ---
DR LUIS EDUARDO RONQUILLO
[2023-06-10 17:00] VITALS: BP 170/72; PULSE 71; RESP 16; O2SAT 96
[2023-06-10 17:11] LABS: WBC,Urine Occasional #/hpf (0-3)
--- NOTE | 2023-06-10 17:12 | PC.NURSE ---
DR BRADFORD AT BEDSIDE TO UPDATE PT AND FAMILY
--- NOTE | 2023-06-10 17:30 | PC.NURSE ---
DR BRADFORD AT BEDSIDE TO UPDATE PT AND FAMILY
[2023-06-10 17:31] VITALS: BP 205/79; PULSE 69; RESP 16; O2SAT 98
[2023-06-10 17:54] VITALS: BP 177/88; BP 205/79; PULSE 69; PULSE 84; RESP 16; RESP 20; TEMP 36.5; TEMP 36.7; O2SAT 98
== END 2023-06-10 17:55 | disposition home or self-care (01) ==
PROVIDERS: Emergency Provider Emergency Medicine; PCP Internal Medicine Adolescent Medicine
DX: R10.9 Unspecified abdominal pain (principal); R11.0 Nausea; D72.829 Elevated white blood cell count, unspecified; I25.10 Atherosclerotic heart disease of native coronary artery without angina pectoris; R01.1 Cardiac murmur, unspecified; I65.29 Occlusion and stenosis of unspecified carotid artery; J44.9 Chronic obstructive pulmonary disease, unspecified; E78.5 Hyperlipidemia, unspecified; I10 Essential (primary) hypertension; I73.9 Peripheral vascular disease, unspecified; I48.0 Paroxysmal atrial fibrillation; I25.2 Old myocardial infarction; Z87.891 Personal history of nicotine dependence; Z85.118 Personal history of other malignant neoplasm of bronchus and lung
CPT/HCPCS: 74177; 80053; 81001; 83690; 85007; 85025; 87636; 96360; 96375; 99285; Q9967

== ENCOUNTER 2023-06-27 16:13 | Inpatient (IN) | payer MEDICARE, OTHER, SELFPAY ==
[2023-06-27] VITALS (10 sets, daily range): BP systolic 86–156; BP diastolic 43–77; PULSE 65–85; RESP 16–18; TEMP 36.5–36.7; O2SAT 97–100; BMI 21.3; BMI 20.9
--- NOTE | 2023-06-27 16:40 | PC.NURSE ---
DR MARTINEZ AT BEDSIDE
--- NOTE | 2023-06-27 16:52 | HMH.EDGENADL ---
Discharge Plan Disposition Patient Disposition: Admitted Chief Complaint: Abdominal Pain Prescriptions Prescriptions: No Action folic acid 1 mg tablet 1 mg PO DAILY albuterol sulfate [Ventolin HFA] 90 mcg/actuation HFA aerosol inhaler 2 puff IH QIDP PRN (Reason: Shortness Of Breath) multivitamin Tablet 1 tab PO DAILY Trelegy Ellipta 100-62.5-25 mcg blister with device 1 inh inhalation DAILY 90 Days Qty: 90 2RF atorvastatin 80 mg tablet 80 mg PO HS Qty: 30 5RF isosorbide mononitrate 30 mg tablet extended release 24 hr 30 mg PO DAILY Qty: 90 5RF metoprolol succinate 50 mg tablet extended release 24 hr 50 mg PO DAILY Qty: 90 3RF rivaroxaban 20 mg tablet 20 mg PO HS Qty: 30 5RF spironolactone 25 mg tablet 25 mg PO DAILY 90 Days Qty: 90 3RF aspirin [Adult Aspirin Regimen] 81 mg tablet,delayed release (DR/EC) 81 mg PO DAILY Qty: 30 5RF Hold Instructions: Resume on 06/09/23. fluticasone propionate [Flonase Allergy Relief] 50 mcg/actuation spray,suspension 2 spray intranasal DAILY Rx Instructions: administer into each nostril montelukast 10 mg tablet 10 mg PO HS Patient Comments: TAKE 1 TABLET BY MOUTH ONCE DAILY cetirizine 10 mg tablet 10 mg PO DAILY Patient Comments: TAKE 1 TABLET BY MOUTH ONCE DAILY oxycodone 10 mg tablet 10 mg PO BIDP PRN (Reason: pain (scale score 7-10)) pantoprazole 40 mg tablet,delayed release (DR/EC) 40 mg PO BID Qty: 90 1RF Patient Comments: TAKE 1 TABLET BY MOUTH ONCE DAILY mirtazapine 15 mg tablet 7.5 mg PO HS Referrals Follow up/Referrals: Curtis Mc MD [Primary Care Provider] - See instructions Clinical Impressions Clinical Impression: Acute upper gastrointestinal bleeding, Acute hypotension Instructions Patient Instructions: DI for Acute Abdominal Pain Discharge ED Provider: Christianne Ling General Adult HPI General Chief complaint: Abdominal Pain Stated complaint: sent by Dr. Mc- Low BP Time Seen by Provider: 06/27/23 16:38 Mode of Arrival: Ambulatory Source of Information: Patient Limitations: No Limitations Description of Symptoms (Recalled from ER Triage Doc. by RN): pt presents to ED from Dr. mc office with hypotension. per report pt had been having stool checked for blood recently. pt pale. denies any abdominal pain or noticing blood in stool. History of Present Illness HPI narrative: Patient is a 78-year-old male who had a recent hospitalization for an upper GI bleed on Xarelto where he had a punctate focus of bleeding in the mid upper gastric body that was status post epinephrine and a clip. He was profoundly anemic and had loss of consciousness when he was in the emergency department with his last presentation at which point I saw him at that time. States he has been very weak feeling went to his follow-up appointment with Dr. Mills today and was profoundly hypotensive his blood pressure is normal in the 130s from a systolic standpoint and he was sent to the emergency department presumed ongoing epigastric test no bleeding. He still is taking Xarelto for his atrial fibrillation. This has not been stopped. Related Data Home Medications Medication Instructions Recorded Confirmed albuterol sulfate 90 mcg/actuation 2 puff inhalation QIDP PRN 08/27/17 06/14/23 aerosol inhaler (Ventolin HFA) Shortness Of Breath folic acid 1 mg tablet 1 mg PO DAILY Supplement 08/27/17 06/14/23 fluticasone propionate 50 2 spray intranasal DAILY 08/18/22 06/14/23 mcg/actuation nasal spray,suspension (Flonase Allergy Relief) mirtazapine 15 mg tablet 7.5 mg PO HS 09/01/22 06/14/23 multivitamin 1 tab PO DAILY Supplement 09/25/22 06/14/23 montelukast 10 mg tablet 10 mg PO HS 02/25/23 06/14/23 cetirizine 10 mg tablet 10 mg PO DAILY 05/31/23 06/14/23 oxycodone 10 mg tablet 10 mg PO BIDP PRN pain (scale 05/31/23 06/14/23 score 7-10) Previous Rx's Medication Instructions Recorded atorvastatin 80 mg tablet 80 mg PO HS #30 tabs 04/02/23 isosorbide mononitrate 30 mg 30 mg PO DAILY #90 tabs 04/02/23 tablet,extended release 24 hr metoprolol succinate 50 mg 50 mg PO DAILY #90 tabs 04/02/23 tablet,extended release 24 hr rivaroxaban 20 mg tablet 20 mg PO HS #30 tabs 04/02/23 spironolactone 25 mg tablet 25 mg PO DAILY 90 days #90 tabs 05/04/23 fluticasone fur. 100 mcg-umeclid 1 inh inhalation DAILY 90 days #90 05/15/23 62.5 mcg-vilant 25 mcg ea inhalat.powder (Trelegy Ellipta) aspirin 81 mg tablet,delayed 81 mg PO DAILY #30 tabs 05/23/23 release (Adult Aspirin Regimen) pantoprazole 40 mg tablet,delayed 40 mg PO BID Acid reflux #90 tabs 06/02/23 release Allergies Allergy/AdvReac Type Severity Reaction Status Date / Time Penicillins Allergy Intermediate I-ITCHING; Verified 06/14/23 11:03 SWELLING Antihistamines - Ethanolamine Allergy Unknown Unknown Verified 06/14/23 11:03 allergy reaction [place] nut Allergy Rash Verified 06/14/23 11:03 doxycycline AdvReac Mild Rash Verified 06/14/23 11:03 PFSH PFS Disclaimer: The information contained in this section may have been updated after the patient was seen, as this information can be updated by other users. Medical History Abdominal bruit Abnormal ankle brachial index (JUSTICE) Acute blood loss anemia Acute upper gastrointestinal bleeding Punctate focus of bleeding in mid/upper gastric body. Status post epi/clip. Allergic rhinitis C. difficile colitis CAD (coronary artery disease) Cardiac murmur Carotid artery disease Cecum perforation Chronic cough Claudication Claudication Coagulopathy COPD (chronic obstructive pulmonary disease) COPD exacerbation COPD mixed type Dyspnea on exertion H/O: lung cancer Hearing Loss Hearing loss, bilateral Hemoptysis Hyperlipidemia Hypertension Impacted cerumen Incurved toenail Ischemic colitis Laceration of right ear canal Lung nodule Nausea vomiting and diarrhea Non-healing wound Nonhealing nonsurgical wound PAD (peripheral artery disease) Pain around toenail, left foot Paroxysmal atrial fibrillation Peripheral arterial disease Pneumonia PVD (peripheral vascular disease) Respiratory failure Sepsis Small cell lung cancer Smoker Smoking greater than 30 pack years Type 2 [place] (myocardial infarction) Vasculopathy Surgical History H/O angioplasty H/O endarterectomy History of cardiac cath History of carpal tunnel release History of esophagogastroduodenoscopy (EGD) Hx of coronary artery bypass graft S/P femoral-popliteal bypass surgery S/P right hemicolectomy Status post insertion of iliac artery stent Family History Other Asthma Social History Smoking Status: Never smoker alcohol intake: current substance use type: denies use current occupational status: retired Travel in the last 8 weeks: None household members: spouse housing: house marital status: caffeine: Yes ROS Obtained: Yes All systems reviewed & no additional complaints except as documented Physical Exam General General appearance: alert and other (Pale) Respiratory Respiratory exam: Present normal lung sounds bilaterally Cardiovascular Cardiovascular exam: Present regular rate; Absent tachycardia Abdominal Exam Abdominal exam: Present soft; Absent distention or tenderness Rectal Exam Rectal exam: Present other (Black stool sent for development for heme presence ) Neurological Exam Neurological exam: Present alert and oriented X3 Medical Decision Making Ricardo Inquiry Pt receiving controlled substance: No Vital Signs: 06/27/23 16:13 Temperature 97.7 F Temperature Source Oral Pulse Rate [Right Radial] 83 Respiratory Rate 18 Blood Pressure [Right Arm] 86/43 L Blood Pressure Mean [Right Arm] 57 Blood Pressure Source [Right Arm] Automatic Cuff Blood Pressure Position [Right Arm] Sitting 02 Sat by Pulse Oximetry 97 Oxygen Delivery Method Room Air Lab Data Lab results reviewed: Yes I reviewed the patient's lab results. Lab Results 06/27/23 16:46: Stool Occult Blood Positive A 06/27/23 17:03: WBC 8.5, RBC 2.64 L, Hgb 7.4 L, Hct 23.7 L, MCV 89.6, MCH 28.0, MCHC 31.3 L, RDW 19.4 H, Plt Count 279, MPV 9.1, Neut % (Auto) 84.9 H, Lymph % (Auto) 9.8 L, [place] % (Auto) 3.6, Eos % (Auto) 1.2, Baso % (Auto) 0.5, Neut # (Auto) 7.2, Lymph # (Auto) 0.8, [place] # (Auto) 0.3, Eos # (Auto) 0.1, Baso # (Auto) 0.0, PT 14.8 H, INR 1.40 H, APTT 31.0 H, Sodium 139, Potassium 4.0, Chloride 107, Carbon Dioxide 29, Anion Gap 7.0, BUN 18, Creatinine 0.80, Estimated Creat Clear 52, Estimated GFR 94, Est GFR ( Amer) 113, Glucose 99, Lactate 2.1, Calcium 8.5, Total Bilirubin 0.3, AST 39, ALT 21, Alkaline Phosphatase 85, Troponin I < 0.01, Total Protein 6.0 L, Albumin 3.2 L, Globulin 2.8, Albumin/Globulin Ratio 1.1, Crossmatch (AHG) See Detail 06/27/23 17:03 06/27/23 17:03 Orders (Tests/Meds): ED MEDICATIONS Generic Name Dose Route Start Last Admin Trade Name Freq PRN Reason Stop Dose Admin Sodium Chloride 250 mls @ 25 mls/hr 06/27/23 17:00 Sod Chlor 0.9% 250ml Bag IV 06/28/23 16:59 .Q10H RADHA Discontinued Medications Generic Name Dose Route Start Last Admin Trade Name Freq PRN Reason Stop Dose Admin Lactated Ringer's 1,000 mls @ 999 mls/hr 06/27/23 17:00 06/27/23 17:06 Lactated Ringer's 1000 Ml Bag IV 06/27/23 18:00 999 mls/hr .Q1H1M [facility] Administration ORDERS Category Date Time Status Transfuse RBC's [Red Blood Cells] Stat BBK 06/27/23 17:03 Received Type and Screen Stat BBK 06/27/23 17:03 Received Complete Blood Count Auto Diff Stat Lab 06/27/23 17:03 Completed Comprehensive Metabolic Panel Stat Lab 06/27/23 17:03 Completed Lactic Acid Stat Lab 06/27/23 17:03 Completed Occult Blood,Stool Stat Lab 06/27/23 16:46 Completed PT/PTT Stat Lab 06/27/23 17:03 Completed Trop I [Troponin I] Stat Lab 06/27/23 17:03 Completed Troponin I Q3H Lab 06/27/23 20:00 Ordered Troponin I Q3H Lab 06/27/23 23:00 Ordered Medical Decision Narrative: Patient is a 78-year-old male presents today with similar presentation from the last time that I saw him with an upper GI bleed. He is still on Xarelto he is awake interacting with me normally at the moment not significantly tachycardic but is hypotensive I presume that this is from blood loss anemia. He has been crossed for 4 units we will hold off on transfusion to see his H&H no indication for emergency blood at the moment. Additionally if he has another profound loss of blood we will reverse his Xarelto again as it would be life-threatening in setting of hypotension and ongoing hemorrhage. I had an extensive discussion about the risk and benefits of ongoing oral anticoagulant use in the setting of atrial fibrillation given the fact that this is his second presentation with life-threatening gastrointestinal bleed. I do not suspect any other cause of hypotension at the moment. Will reassess after his initial workup is complete. Reassessment 6:05 PM patient remains stable and well-appearing H&H not below transfusion level but hemoglobin has dropped from 10 down to 7.5. Will continue to keep an eye on this. I am not going to emergently reverse his anticoagulation at this point as he is not nearly as critical as last time that I saw him. I discussed the case with Dr. Ryan Lockwood who agreed to accept the patient it is possible the patient may not get scoped if after holding his anticoagulation he remained stable once resuscitated. I discussed case with the family who agreed to this plan patient will be admitted for further evaluation and management. I discussed the case with Dr. Esteves with hospital medicine for further evaluation and management. Critical Care Critical Care Time Critical Care Time: Yes Attestation: On 06/27/23, the high probability of a clinically significant, sudden or life threatening deterioration of the following system(s) required my full and direct attention, intervention and personal management. The time I documented below is in addition to time spent performing reported procedures but includes the following listed in this critical care notation. Total Time Total Critical Care Time: 35
[2023-06-27 16:53] LABS: Occult Blood,Stool Positive (Negative)
[2023-06-27] MEDS: LACTATED RINGERS 1000ML 1,000 ML 999 ML IV (17:06)
[2023-06-27 17:23] LABS: Basophils % 0.5 % (0.1-2.0); Eosinophils # 0.1 K/mm3 (0.0-0.4); Eosinophils % 1.2 % (0.1-12.0); Hemoglobin 7.4 g/dL (14.1-18.0); Lymphocytes # 0.8 K/mm3 (0.7-4.5); Lymphocytes % 9.8 % (10-50); Mean Corpuscular HGB Conc 31.3 g/dL (31.8-35.4); Mean Corpuscular Volume 89.6 fl (80-94); Mean Platelet Volume 9.1 fl (7.4-10.4); Monocytes # 0.3 K/mm3 (0.1-1.0); Monocytes % 3.6 % (1.7-9.3); Neutrophils # 7.2 K/mm3 (1.8-7.8); Neutrophils % 84.9 % (37.0-80.0); Platelet Count 279 K/mm3 (142-424); Red Blood Count 2.64 M/mm3 (4.60-6.20); Red Cell Distribution Width 19.4 % (11.5-17.5); White Blood Count 8.5 K/mm3 (4.8-10.8)
[2023-06-27 17:29] LABS: Chloride 107 mmol/L (98-107); Sodium 139 mmol/L (136-145)
[2023-06-27 17:31] LABS: Blood Urea Nitrogen 18 mg/dl (9-20); Creatinine Clearance Estimated 52 mL/min (50-200); Estimated Glomerular Filt Rate 94 ml/min (>60); GFR (African American) 113 ML/MIN (>60)
[2023-06-27 17:32] LABS: Alanine Aminotransferase 21 U/L (12-78); Albumin Level 3.2 g/dl (3.5-5.0); Albumin/Globulin Ratio 1.1 (1.1-1.8); Alkaline Phosphatase 85 U/L (38-126); Aspartate Amino Transferase 39 U/L (17-59); Bilirubin,Total 0.3 mg/dl (0.2-1.3); Calcium 8.5 mg/dl (8.4-10.2); Carbon Dioxide 29 mmol/L (22.0-30.0); Globulin 2.8 g/dL (1.3-3.2); Glucose 99 mg/dl (74-100)
[2023-06-27 17:41] LABS: Hematocrit 23.7 % (42.0-52.0)
[2023-06-27 17:44] LABS: Troponin I < 0.01 ng/ml (0.00-0.034)
[2023-06-27 17:49] LABS: Lactic Acid 2.1 mmol/L (0.7-2.1)
[2023-06-27 17:52] LABS: Prothrombin Time 14.8 seconds (10.1-12.5)
--- NOTE | 2023-06-27 18:01 | PC.NURSE ---
Surgeon paged at time.
--- NOTE | 2023-06-27 18:01 | PC.NURSE ---
speaking with Dr. Rice at this time.
--- NOTE | 2023-06-27 18:35 | PC.NURSE ---
DR MARTINEZ SPEAKING WITH DR TYSON FOR ADMISSION
--- NOTE | 2023-06-27 18:39 | PC.NURSE ---
notified supervisor personnel clerks for bed assignment
--- NOTE | 2023-06-27 19:15 | EXP.HP ---
History of Present Illness *Admission Date: 06/27/23 *Reason for visit:: Fatigue, pallor *History of present illness: 78-year-old male who presented to the ER from Dr. Montes's office due to concern for hypotension and pallor. Patient has been checking his stools lately for blood. Was given guaiac cards and has turned to end. and patient are unsure of the results. To state though however he has been more pale and weak over the past few days. Was seen at his PCPs office for evaluation. Denies any nausea or vomiting, chest pain or shortness of breath. Is alert and oriented x 3. In the ER, workup positive for anemia with hemoglobin of 7.4. Case was discussed with surgery who recommended admission for further evaluation. Patient had a recent hospitalization with an upper GI bleed on Xarelto. Punctate focus was noted in the upper gastric body. Clipped and injected with epinephrine at that time. Responded to transfusion and was stable to go home. He is currently on Xarelto because of previous episode of A-fib but denies any current A-fib or sensation of tachycardia or palpitations. Has been feeling weak however and following up with PCP regularly. On evaluation, patient is stable on room air. Alert and oriented x 3. at bedside. Hard of hearing. [facility] Disclaimer: The information contained in this section may have been updated after the patient was seen, as this information can be updated by other users. Medical History (Updated 06/27/23 @ 22:28 by Lawrence Fitzgerald MD) PAD (peripheral artery disease) COPD (chronic obstructive pulmonary disease) CAD (coronary artery disease) Vasculopathy Coagulopathy Type 2 MS (myocardial infarction) Acute blood loss anemia Acute upper gastrointestinal bleeding Nausea vomiting and diarrhea Respiratory failure Pneumonia Sepsis C. difficile colitis Pain around toenail, left foot Incurved toenail Nonhealing nonsurgical wound Hearing loss, bilateral Paroxysmal atrial fibrillation Ischemic colitis Hyperlipidemia Hypertension Cecum perforation PVD (peripheral vascular disease) Non-healing wound Abnormal ankle brachial index (JUSTICE) Claudication Chronic cough Allergic rhinitis COPD exacerbation Lung nodule Smoking greater than 30 pack years Small cell lung cancer Hemoptysis Dyspnea on exertion COPD mixed type Laceration of right ear canal Hearing Loss Impacted cerumen H/O: lung cancer Abdominal bruit Cardiac murmur Claudication Smoker Peripheral arterial disease Carotid artery disease Surgical History History of esophagogastroduodenoscopy (EGD) S/P right hemicolectomy S/P femoral-popliteal bypass surgery Status post insertion of iliac artery stent H/O endarterectomy H/O angioplasty History of cardiac cath History of carpal tunnel release Hx of coronary artery bypass graft Family History Other Asthma Social History Smoking Status: Never smoker alcohol intake: current substance use type: denies use current occupational status: retired Travel in the last 8 weeks: None household members: spouse housing: house marital status: caffeine: Yes Review of Systems Review of Systems Review of systems (narrative): 14 point review of systems performed, pertinent positives and negatives as per [facility] Meds Home Medications and Allergies Home Medications Medication Instructions Recorded Confirmed Type albuterol sulfate 90 mcg/actuation 2 puff inhalation QIDP PRN 08/27/17 06/27/23 History aerosol inhaler (Ventolin HFA) Shortness Of Breath folic acid 1 mg tablet 1 mg PO DAILY Supplement 08/27/17 06/27/23 History fluticasone propionate 50 2 spray intranasal DAILY 08/18/22 06/27/23 History mcg/actuation nasal spray,suspension (Flonase Allergy Relief) mirtazapine 15 mg tablet 15 mg PO HS 09/01/22 06/27/23 History multivitamin 1 tab PO DAILY Supplement 09/25/22 06/27/23 History montelukast 10 mg tablet 10 mg PO HS 02/25/23 06/27/23 History atorvastatin 80 mg tablet 80 mg PO HS #30 tabs 04/02/23 06/27/23 Rx isosorbide mononitrate 30 mg 30 mg PO DAILY #90 tabs 04/02/23 06/27/23 Rx tablet,extended release 24 hr metoprolol succinate 50 mg 50 mg PO DAILY #90 tabs 04/02/23 06/27/23 Rx tablet,extended release 24 hr rivaroxaban 20 mg tablet 20 mg PO HS #30 tabs 04/02/23 06/27/23 Rx spironolactone 25 mg tablet 25 mg PO DAILY 90 days #90 tabs 05/04/23 06/27/23 Rx fluticasone fur. 100 mcg-umeclid 1 inh inhalation DAILY 90 days #90 05/15/23 06/27/23 Rx 62.5 mcg-vilant 25 mcg ea inhalat.powder (Trelegy Ellipta) cetirizine 10 mg tablet 10 mg PO DAILY 05/31/23 06/27/23 History oxycodone 10 mg tablet 10 mg PO BIDP PRN pain (scale 05/31/23 06/27/23 History score 7-10) pantoprazole 40 mg tablet,delayed 40 mg PO BID Acid reflux #90 tabs 06/02/23 06/27/23 Rx release fluticasone fur. 100 mcg-umeclid 1 inh inhalation DAILY 06/27/23 06/27/23 History 62.5 mcg-vilant 25 mcg inhalat.powder (Trelegy Ellipta) fluticasone fur. 100 mcg-umeclid 1 inh inhalation DAILY 06/27/23 06/27/23 History 62.5 mcg-vilant 25 mcg inhalat.powder (Trelegy Ellipta) New Prescriptions to Start Prescriptions: Allergies Allergy/AdvReac Type Severity Reaction Status Date / Time Penicillins Allergy Intermediate I-ITCHING; Verified 06/14/23 11:03 SWELLING Antihistamines - Ethanolamine Allergy Unknown Unknown Verified 06/14/23 11:03 allergy reaction [place] nut Allergy Rash Verified 06/14/23 11:03 doxycycline AdvReac Mild Rash Verified 06/14/23 11:03 Exam Data for Last 24 hours Vital signs and Labs for Last 24 Hours: Temp Pulse Resp BP Pulse Ox O2 Del Method 97.7 F 71 18 136/62 99 Room Air 06/27/23 16:13 06/27/23 18:15 06/27/23 18:00 06/27/23 18:15 06/27/23 18:15 06/27/23 16:13 Laboratory Results - last 24 hr 06/27/23 16:46: Stool Occult Blood Positive A 06/27/23 17:03: WBC 8.5, RBC 2.64 L, Hgb 7.4 L, Hct 23.7 L, MCV 89.6, MCH 28.0, MCHC 31.3 L, RDW 19.4 H, Plt Count 279, MPV 9.1, Neut % (Auto) 84.9 H, Lymph % (Auto) 9.8 L, [place] % (Auto) 3.6, Eos % (Auto) 1.2, Baso % (Auto) 0.5, Neut # (Auto) 7.2, Lymph # (Auto) 0.8, [place] # (Auto) 0.3, Eos # (Auto) 0.1, Baso # (Auto) 0.0, PT 14.8 H, INR 1.40 H, APTT 31.0 H, Sodium 139, Potassium 4.0, Chloride 107, Carbon Dioxide 29, Anion Gap 7.0, BUN 18, Creatinine 0.80, Estimated Creat Clear 52, Estimated GFR 94, Est GFR ( Amer) 113, Glucose 99, Lactate 2.1, Calcium 8.5, Total Bilirubin 0.3, AST 39, ALT 21, Alkaline Phosphatase 85, Troponin I < 0.01, Total Protein 6.0 L, Albumin 3.2 L, Globulin 2.8, Albumin/Globulin Ratio 1.1, Blood Type AB Positive, Antibody Screen Negative, Crossmatch ([facility]) See Detail I & O for Last 24 hours: Intake & Output 06/24/23 06/25/23 06/26/23 06/27/23 23:59 23:59 23:59 23:59 Weight 59.874 kg Constitutional Constitutional: no acute distress, average body habitus and cooperative *Routine HEENT Exam Head: Present normocephalic Eye: Present EOMI and PERRL ENT: Present mucous membranes moist *Routine Neck Exam Neck: Present supple; Absent lymphadenopathy *Routine Respiratory Exam Respiratory: Present CTA bilaterally; Absent rhonchi, wheezes or crackles *Routine Cardiovascular Exam Cardiovascular: Present RRR and murmur *Routine Abdominal Exam Abdominal: Present soft and normoactive bowel sounds; Absent tenderness *Routine Rectal Exam Rectal:: deferred *Routine Genitalia Exam Genitalia:: deferred *Routine Extremities Exam Extremities: Absent cyanosis, clubbing or edema *Routine Skin Exam Skin: Present intact, dry, pallor and warm; Absent rash *Routine Neurological Exam Neurological: Present alert, oriented X3 and moving all extremities; Absent altered mental status Assessment and Plan *Assessment and plan (1) Acute upper gastrointestinal bleeding: Problem Comment: Punctate focus of bleeding in mid/upper gastric body. Status post epi/clip. Status: Acute Category: Medical Code(s): K92.2 - Gastrointestinal hemorrhage, unspecified (2) Acute on chronic blood loss anemia: Status: Acute Category: Medical Code(s): D62 - Acute posthemorrhagic anemia (3) CAD (coronary artery disease): Status: Acute Qualifiers: Coronary Disease-Associated Artery/Lesion type: bypass graft [place] vs. transplanted heart: [place] heart Associated angina: without angina Qualified Code(s): I25.810 - Atherosclerosis of coronary artery bypass graft(s) without angina pectoris Category: Medical Code(s): I25.10 - Atherosclerotic heart disease of [place] coronary artery without angina pectoris (4) COPD (chronic obstructive pulmonary disease): Status: Acute Qualifiers: COPD type: unspecified COPD Qualified Code(s): J44.9 - Chronic obstructive pulmonary disease, unspecified Category: Medical Code(s): J44.9 - Chronic obstructive pulmonary disease, unspecified (5) PAD (peripheral artery disease): Status: Acute Category: Medical Code(s): I73.9 - Peripheral vascular disease, unspecified (6) Hyperlipidemia: Status: Acute Category: Medical Code(s): E78.5 - Hyperlipidemia, unspecified (7) Hypertension: Status: Acute Category: Medical Code(s): I10 - Essential (primary) hypertension Plan 78-year-old gentleman with history of CAD, COPD, PAD, previous episode of A-fib who is on rate controlling medication and anticoagulation with Xarelto. Presented to the ER at the recommendation of his PCP for weakness and fatigue. Found to be anemic. Discussed case with the ER physician, requests admission for monitoring with serial H&H, surgery eval, and treatment of suspected GI bleed and anemia. Medicine agreed to admit for further management. Started on Protonix twice daily. Holding anticoagulation. N.p.o. for possible EGD tomorrow. Problems addressed as follows: Acute on Chronic anemia GI bleed -Hemoglobin 10.3 one month ago. 7.4 on presentation. Patient fatigued. No santos melenic stool, hematochezia, hematemesis. Previous lesions noted. Reviewed chart, EGD showing punctate bleeding lesion that was clipped. -Surgery consulted, appreciate their recommendations. N.p.o. at midnight pending possible scope in the morning -Continue pantoprazole 40 mg IV twice daily. -Transfusion threshold hemoglobin less than 7. -Kidney function and electrolytes normal. Repeat CBC, CMP, magnesium ordered for the morning. COPD -DuoNebs every 6 hours scheduled. Continue home Trelegy. -Supplemental oxygen as needed, goal saturation greater 90%. Currently on R CAD/PAD hypertension: Hyperlipidemia: Paroxysmal A-fib - Continue Lipitor 80 mg nightly - Continue isosorbide 30 mg daily, metoprolol succinate 50 mg daily, spironolactone 25 mg daily -Holding anticoagulation in the setting of GI bleed and blood loss anemia. EKG to evaluate A-fib. Will consider holding anticoagulation at discharge and having further evaluation for risks and benefits of anticoagulation in the outpatient setting. Insomnia: Continue mirtazapine 15 mg nightly, Full code Regular diet, n.p.o. at midnight Holding anticoagulation in the setting of anemia and GI bleed
--- NOTE | 2023-06-27 19:36 | PC.NURSE ---
Spoke with Lab in regards to transfusion for this patient, they stated the blood was ready to be transfused. After discussing with Dr. Ling and BERNARDINO Alba they had me contact the Lab back to hold on the transfusion until were ready for it.
--- NOTE | 2023-06-27 19:42 | PC.NURSE ---
Attempted to call report to Tia MONTES, will call back for report
--- NOTE | 2023-06-27 19:50 | PC.NURSE ---
report to Tia RN #[id number]
--- NOTE | 2023-06-27 19:51 | PC.NURSE ---
Assessment completed on pt at time of transfer, not completed by dayshift
--- NOTE | 2023-06-27 19:55 | PC.NURSE ---
at bedside, pt updated on admission, no needs at this time
[2023-06-27 20:30] LABS: Troponin I < 0.01 ng/ml (0.00-0.034)
[2023-06-27 21:16] LABS: Reflex Lactic Add Lactic Reflex
[2023-06-27] MEDS: MIRTAZAPINE 15 MG TABLET PO (21:38)
[2023-06-27] MEDS: ATORVASTATIN 40MG TABLET 80 MG PO (21:38)
[2023-06-27] MEDS: MONTELUKAST SODIUM 10MG TAB 10 MG PO (21:39)
[2023-06-27 21:46] LABS: Lactic Acid Follow Up (RFLX 1) 1.5 mmol/L (0.7-2.1)
[2023-06-27] MEDS: PANTOPRAZOLE 40MG VIAL 40 MG IV (23:16)
[2023-06-27] MEDS: MELATONIN 5MG TABLET 10 MG PO (23:16)
[2023-06-27 23:21] LABS: Troponin I < 0.01 ng/ml (0.00-0.034)
--- NOTE | 2023-06-27 23:26 | PC.NURSE ---
RECEIVED PHONE REPORT FROM MIKAYLA RN/ED NURSE AR [id number]. PATIENT ARRIVED TO THE FLOOR AT 2009. DIAGOSIS GI BLEED.
[2023-06-28] VITALS (15 sets, daily range): BP systolic 112–153; BP diastolic 51–92; PULSE 52–73; RESP 17–18; TEMP 36.5–36.8; O2SAT 97–100; BMI 21.4
--- NOTE | 2023-06-28 05:12 | PC.NURSE ---
PATIENT HAS HAD A QUIET NIGHT. NO COMPLAINTS OF PAIN. NO REPORTS OF BLACK OR BLOODY STOOLS. HAD BEEN NPO SINCE MIDNIGHT FOR POSSIBLE PROCEDURE THIS AM.
[2023-06-28 06:55] LABS: Basophils % 0.4 % (0.1-2.0); Eosinophils # 0.2 K/mm3 (0.0-0.4); Eosinophils % 4.4 % (0.1-12.0); Hematocrit 21.3 % (42.0-52.0); Lymphocytes % 18.1 % (10-50); Mean Corpuscular HGB Conc 32.1 g/dL (31.8-35.4); Mean Corpuscular Hemoglobin 28.4 pg (27.0-31.2); Mean Corpuscular Volume 88.6 fl (80-94); Mean Platelet Volume 8.3 fl (7.4-10.4); Monocytes # 0.3 K/mm3 (0.1-1.0); Monocytes % 5.3 % (1.7-9.3); Neutrophils # 3.8 K/mm3 (1.8-7.8); Neutrophils % 71.7 % (37.0-80.0); Platelet Count 249 K/mm3 (142-424); Red Cell Distribution Width 19.8 % (11.5-17.5); White Blood Count 5.3 K/mm3 (4.8-10.8)
[2023-06-28 07:12] LABS: Alanine Aminotransferase 13 U/L (12-78); Albumin Level 2.8 g/dl (3.5-5.0); Albumin/Globulin Ratio 1.1 (1.1-1.8); Alkaline Phosphatase 71 U/L (38-126); Anion Gap 6.9 mEq/L (5-15); Aspartate Amino Transferase 20 U/L (17-59); Bilirubin,Total 0.4 mg/dl (0.2-1.3); Blood Urea Nitrogen 16 mg/dl (9-20); Calcium 8.2 mg/dl (8.4-10.2); Carbon Dioxide 28 mmol/L (22.0-30.0); Chloride 108 mmol/L (98-107); Creatinine Clearance Estimated 53 mL/min (50-200); Estimated Glomerular Filt Rate 109 ml/min (>60); GFR (African American) 132 ML/MIN (>60); Globulin 2.5 g/dL (1.3-3.2); Glucose 86 mg/dl (74-100); Magnesium 1.7 mg/dl (1.6-2.3); Potassium 3.9 mmoL/L (3.5-5.1); Sodium 139 mmol/L (136-145); Total Protein,Serum 5.3 g/dl (6.3-8.2)
[2023-06-28 07:18] LABS: Hemoglobin 6.8 g/dL (14.1-18.0)
--- NOTE | 2023-06-28 08:10 | HMH.PHAINT1 ---
Pharmacy Intervention Comments: Verified home medications using external fill history and spoke with patient at bedside.
[2023-06-28] MEDS: ISOSORBIDE MONO 30MG TAB.ER.24H 30 MG PO (09:08)
[2023-06-28] MEDS: SPIRONOLACTONE 25MG TABLET 25 MG PO (09:08)
[2023-06-28] MEDS: PANTOPRAZOLE 40MG VIAL 40 MG IV ×2 (09:08→20:24)
[2023-06-28] MEDS: METOPROLOL SUCCINATE XL 50MG TABLET 50 MG PO (09:08)
--- NOTE | 2023-06-28 09:25 | P.CONS_ITS ---
History of Present Illness *Admission Date: 06/27/23 *Reason for visit:: Gastrointestinal hemorrhage *History of present illness: This is a 78-year-old gentleman seen in consultation after being readmitted for recurrent gastrointestinal hemorrhage. Please see HPI forwarded below. Note: During recent hospitalization he underwent esophagogastroduodenoscopy on June 01, 2023 with the following findings: 1) Large volume clot in proximal/mid gastric body 2) Severe patchy gastritis 3) Multiple punctate and linear ulcerations throughout proximal and mid gastric body 4) Focal ulceration with active sanguinous ooze controlled with epinephrine injection and Resolution 360 clip placement Forwarded from admission H&P/emergency department evaluation: 78-year-old male who presented to the ER from Dr. Montes's office due to concern for hypotension and pallor. Patient has been checking his stools lately for blood. Was given guaiac cards and has turned to end. and patient are unsure of the results. To state though however he has been more pale and weak over the past few days. Was seen at his PCPs office for evaluation. Denies any nausea or vomiting, chest pain or shortness of breath. Is alert and oriented x 3. In the ER, workup positive for anemia with hemoglobin of 7.4. Case was discussed with surgery who recommended admission for further evaluation. Patient had a recent hospitalization with an upper GI bleed on Xarelto. Punctate focus was noted in the upper gastric body. Clipped and injected with epinephrine at that time. Responded to transfusion and was stable to go home. He is currently on Xarelto because of previous episode of A-fib but denies any current A-fib or sensation of tachycardia or palpitations. Has been feeling weak however and following up with PCP regularly. On evaluation, patient is stable on room air. Alert and oriented x 3. at bedside. Hard of hearing. [facility] Disclaimer: The information contained in this section may have been updated after the patient was seen, as this information can be updated by other users. Medical History (Updated 06/28/23 @ 09:31 by Kyle Rice MD) PAD (peripheral artery disease) COPD (chronic obstructive pulmonary disease) CAD (coronary artery disease) Vasculopathy Coagulopathy Type 2 CT (myocardial infarction) Acute blood loss anemia Acute upper gastrointestinal bleeding Nausea vomiting and diarrhea Respiratory failure Pneumonia Sepsis C. difficile colitis Pain around toenail, left foot Incurved toenail Nonhealing nonsurgical wound Hearing loss, bilateral Paroxysmal atrial fibrillation Ischemic colitis Hyperlipidemia Hypertension Cecum perforation PVD (peripheral vascular disease) Non-healing wound Abnormal ankle brachial index (JUSTICE) Claudication Chronic cough Allergic rhinitis COPD exacerbation Lung nodule Smoking greater than 30 pack years Small cell lung cancer Hemoptysis Dyspnea on exertion COPD mixed type Laceration of right ear canal Hearing Loss Impacted cerumen H/O: lung cancer Abdominal bruit Cardiac murmur Claudication Smoker Peripheral arterial disease Carotid artery disease Surgical History History of esophagogastroduodenoscopy (EGD) S/P right hemicolectomy S/P femoral-popliteal bypass surgery Status post insertion of iliac artery stent H/O endarterectomy H/O angioplasty History of cardiac cath History of carpal tunnel release Hx of coronary artery bypass graft Family History Other Asthma Social History Smoking Status: Never smoker alcohol intake: current substance use type: denies use current occupational status: retired Travel in the last 8 weeks: None household members: spouse housing: house marital status: caffeine: Yes Meds Home Medications and Allergies Home Medications Medication Instructions Recorded Confirmed Type albuterol sulfate 90 mcg/actuation 2 puff inhalation QIDP PRN 08/27/17 06/27/23 History aerosol inhaler (Ventolin HFA) Shortness Of Breath folic acid 1 mg tablet 1 mg PO DAILY Supplement 08/27/17 06/27/23 History fluticasone propionate 50 2 spray intranasal DAILY 08/18/22 06/27/23 History mcg/actuation nasal spray,suspension (Flonase Allergy Relief) mirtazapine 15 mg tablet 15 mg PO HS 09/01/22 06/27/23 History multivitamin 1 tab PO DAILY Supplement 09/25/22 06/27/23 History montelukast 10 mg tablet 10 mg PO HS 02/25/23 06/27/23 History atorvastatin 80 mg tablet 80 mg PO HS #30 tabs 04/02/23 06/27/23 Rx isosorbide mononitrate 30 mg 30 mg PO DAILY #90 tabs 04/02/23 06/27/23 Rx tablet,extended release 24 hr metoprolol succinate 50 mg 50 mg PO DAILY #90 tabs 04/02/23 06/27/23 Rx tablet,extended release 24 hr rivaroxaban 20 mg tablet 20 mg PO HS #30 tabs 04/02/23 06/27/23 Rx spironolactone 25 mg tablet 25 mg PO DAILY 90 days #90 tabs 05/04/23 06/27/23 Rx cetirizine 10 mg tablet 10 mg PO DAILY 05/31/23 06/27/23 History oxycodone 10 mg tablet 10 mg PO BIDP PRN pain (scale 05/31/23 06/27/23 History score 7-10) pantoprazole 40 mg tablet,delayed 40 mg PO BID Acid reflux #90 tabs 06/02/23 06/27/23 Rx release fluticasone fur. 100 mcg-umeclid 1 inh inhalation DAILY 06/27/23 06/27/23 History 62.5 mcg-vilant 25 mcg inhalat.powder (Trelegy Ellipta) New Prescriptions to Start Prescriptions: Allergies Allergy/AdvReac Type Severity Reaction Status Date / Time Penicillins Allergy Intermediate I-ITCHING; Verified 06/14/23 11:03 SWELLING Antihistamines - Ethanolamine Allergy Unknown Unknown Verified 06/14/23 11:03 allergy reaction [place] nut Allergy Rash Verified 06/14/23 11:03 doxycycline AdvReac Mild Rash Verified 06/14/23 11:03 Exam (Inpt) Vital signs and Labs for Last 24 Hours: Temp Pulse Resp BP Pulse Ox O2 Del Method 98.1 F 73 18 153/67 H 97 Room Air 06/28/23 07:52 06/28/23 07:52 06/28/23 07:52 06/28/23 07:52 06/28/23 07:52 06/28/23 09:00 Laboratory Results - last 24 hr 06/27/23 16:46: Stool Occult Blood Positive A 06/27/23 17:03: WBC 8.5, RBC 2.64 L, Hgb 7.4 L, Hct 23.7 L, MCV 89.6, MCH 28.0, MCHC 31.3 L, RDW 19.4 H, Plt Count 279, MPV 9.1, Neut % (Auto) 84.9 H, Lymph % (Auto) 9.8 L, [place] % (Auto) 3.6, Eos % (Auto) 1.2, Baso % (Auto) 0.5, Neut # (Auto) 7.2, Lymph # (Auto) 0.8, [place] # (Auto) 0.3, Eos # (Auto) 0.1, Baso # (Auto) 0.0, PT 14.8 H, INR 1.40 H, APTT 31.0 H, Sodium 139, Potassium 4.0, Chloride 107, Carbon Dioxide 29, Anion Gap 7.0, BUN 18, Creatinine 0.80, Estimated Creat Clear 52, Estimated GFR 94, Est GFR ( Amer) 113, Glucose 99, Lactate 2.1, Calcium 8.5, Total Bilirubin 0.3, AST 39, ALT 21, Alkaline Phosphatase 85, Troponin I < 0.01, Total Protein 6.0 L, Albumin 3.2 L, Globulin 2.8, Albumin/Globulin Ratio 1.1, Blood Type AB Positive, Antibody Screen Negative, Crossmatch ([facility]) See Detail 06/27/23 19:47: Troponin I < 0.01 06/27/23 21:30: Lactate 1.5 06/27/23 22:48: Troponin I < 0.01 06/28/23 06:14: WBC 5.3 D, RBC 2.40 L, Hgb 6.8 L*, Hct 21.3 L, MCV 88.6, MCH 28.4, MCHC 32.1, RDW 19.8 H, Plt Count 249, MPV 8.3, Neut % (Auto) 71.7, Lymph % (Auto) 18.1, [place] % (Auto) 5.3, Eos % (Auto) 4.4, Baso % (Auto) 0.4, Neut # (Auto) 3.8, Lymph # (Auto) 1.0, [place] # (Auto) 0.3, Eos # (Auto) 0.2, Baso # (Auto) 0.0, Sodium 139, Potassium 3.9, Chloride 108 H, Carbon Dioxide 28, Anion Gap 6.9, BUN 16, Creatinine 0.70, Estimated Creat Clear 53, Estimated GFR 109, Est GFR ( Amer) 132, Glucose 86, Calcium 8.2 L, Magnesium 1.7, Total Bilirubin 0.4, AST 20 D, ALT 13 D, Alkaline Phosphatase 71, Total Protein 5.3 L, Albumin 2.8 L D, Globulin 2.5, Albumin/Globulin Ratio 1.1 I & O for Labs for Last 24 Hours: Intake & Output 06/25/23 06/26/23 06/27/23 06/28/23 11:59 11:59 11:59 11:59 Intake Total 240 / 240 Output Total 0 / 0 Balance 240 / 240 Weight 133 lb 5 oz Constitutional: no acute distress Respiratory: Absent respiratory distress Cardiac: Absent Tachycardia Results Labs 06/28/23 06:14 06/28/23 06:14 Labs: Laboratory Results - last 24 hr 06/27/23 16:46: Stool Occult Blood Positive A 06/27/23 17:03: WBC 8.5, RBC 2.64 L, Hgb 7.4 L, Hct 23.7 L, MCV 89.6, MCH 28.0, MCHC 31.3 L, RDW 19.4 H, Plt Count 279, MPV 9.1, Neut % (Auto) 84.9 H, Lymph % (Auto) 9.8 L, [place] % (Auto) 3.6, Eos % (Auto) 1.2, Baso % (Auto) 0.5, Neut # (Auto) 7.2, Lymph # (Auto) 0.8, [place] # (Auto) 0.3, Eos # (Auto) 0.1, Baso # (Auto) 0.0, PT 14.8 H, INR 1.40 H, APTT 31.0 H, Sodium 139, Potassium 4.0, Chloride 107, Carbon Dioxide 29, Anion Gap 7.0, BUN 18, Creatinine 0.80, Estimated Creat Clear 52, Estimated GFR 94, Est GFR ( Amer) 113, Glucose 99, Lactate 2.1, Calcium 8.5, Total Bilirubin 0.3, AST 39, ALT 21, Alkaline Phosphatase 85, Troponin I < 0.01, Total Protein 6.0 L, Albumin 3.2 L, Globulin 2.8, Albumin/Globulin Ratio 1.1, Blood Type AB Positive, Antibody Screen Negative, Crossmatch ([facility]) See Detail 06/27/23 19:47: Troponin I < 0.01 06/27/23 21:30: Lactate 1.5 06/27/23 22:48: Troponin I < 0.01 06/28/23 06:14: WBC 5.3 D, RBC 2.40 L, Hgb 6.8 L*, Hct 21.3 L, MCV 88.6, MCH 28.4, MCHC 32.1, RDW 19.8 H, Plt Count 249, MPV 8.3, Neut % (Auto) 71.7, Lymph % (Auto) 18.1, [place] % (Auto) 5.3, Eos % (Auto) 4.4, Baso % (Auto) 0.4, Neut # (Auto) 3.8, Lymph # (Auto) 1.0, [place] # (Auto) 0.3, Eos # (Auto) 0.2, Baso # (Auto) 0.0, Sodium 139, Potassium 3.9, Chloride 108 H, Carbon Dioxide 28, Anion Gap 6.9, BUN 16, Creatinine 0.70, Estimated Creat Clear 53, Estimated GFR 109, Est GFR ( Amer) 132, Glucose 86, Calcium 8.2 L, Magnesium 1.7, Total Bilirubin 0.4, AST 20 D, ALT 13 D, Alkaline Phosphatase 71, Total Protein 5.3 L, Albumin 2.8 L D, Globulin 2.5, Albumin/Globulin Ratio 1.1 Assessment and Plan *Assessment and plan (1) Acute on chronic blood loss anemia: Status: Acute Category: Medical Code(s): D62 - Acute posthemorrhagic anemia (2) Acute upper gastrointestinal bleeding: Problem Comment: Punctate focus of bleeding in mid/upper gastric body. Status post epi/clip on 06/01/23. Status: Acute Category: Medical Code(s): K92.2 - Gastrointestinal hemorrhage, unspecified Plan The patient is to receive blood transfusion secondary to a.m. hemoglobin of 6.8. He states that he feels fine right now . I have discussed the risks and benefits of esophagogastroduodenoscopy this morning. The patient prefers to wait and see how things go with the blood . He is hopeful that he can avoid esophagogastroduodenoscopy during this hospitalization and just have the one as an outpatient as scheduled . However, he is agreeable to be NPO after midnight for possible esophagogastroduodenoscopy tomorrow morning if needed .
[2023-06-28] MEDS: miSOPROStoL 200 MCG TABLET PO ×3 (10:21→22:14)
[2023-06-28] MEDS: SUCRALFATE 1GM/10ML SUSP UDC 1 GM PO ×3 (10:21→20:24)
[2023-06-28] MEDS: FLUTICASONE/UMECLIDIN/VILANTER 100/62.5/25MCG INHALER 1 PUFF IH (10:59)
[2023-06-28 13:14] LABS: Hemoglobin 7.8 g/dL (14.1-18.0)
--- NOTE | 2023-06-28 13:22 | PC.NURSE ---
Danielito aware of new HGB after one unit of blood now 7.8.
--- NOTE | 2023-06-28 13:40 | P.PN_ITS ---
Subjective *Date: 06/28/23 *Time: 14:00 Interval history: patient was seen and evaluated at the bedside. No reported acute events overnight, denies chest pain, shortness of breath, nausea, vomiting, abdominal pain. He has noticed any GIB himself Exam Data for Last 24 hours Vital signs and Labs for Last 24 Hours: Temp Pulse Resp BP Pulse Ox O2 Del Method 97.7 F 56 L 17 140/86 99 Room Air 06/28/23 12:30 06/28/23 12:30 06/28/23 12:30 06/28/23 12:30 06/28/23 12:30 06/28/23 12:49 Laboratory Results - last 24 hr 06/27/23 16:46: Stool Occult Blood Positive A 06/27/23 17:03: WBC 8.5, RBC 2.64 L, Hgb 7.4 L, Hct 23.7 L, MCV 89.6, MCH 28.0, MCHC 31.3 L, RDW 19.4 H, Plt Count 279, MPV 9.1, Neut % (Auto) 84.9 H, Lymph % (Auto) 9.8 L, [place] % (Auto) 3.6, Eos % (Auto) 1.2, Baso % (Auto) 0.5, Neut # (Auto) 7.2, Lymph # (Auto) 0.8, [place] # (Auto) 0.3, Eos # (Auto) 0.1, Baso # (Auto) 0.0, PT 14.8 H, INR 1.40 H, APTT 31.0 H, Sodium 139, Potassium 4.0, Chloride 107, Carbon Dioxide 29, Anion Gap 7.0, BUN 18, Creatinine 0.80, Estimated Creat Clear 52, Estimated GFR 94, Est GFR ( Amer) 113, Glucose 99, Lactate 2.1, Calcium 8.5, Total Bilirubin 0.3, AST 39, ALT 21, Alkaline Phosphatase 85, Troponin I < 0.01, Total Protein 6.0 L, Albumin 3.2 L, Globulin 2.8, Albumin/Globulin Ratio 1.1, Blood Type AB Positive, Antibody Screen Negative, Crossmatch (AHG) See Detail 06/27/23 19:47: Troponin I < 0.01 06/27/23 21:30: Lactate 1.5 06/27/23 22:48: Troponin I < 0.01 06/28/23 06:14: WBC 5.3 D, RBC 2.40 L, Hgb 6.8 L*, Hct 21.3 L, MCV 88.6, MCH 28.4, MCHC 32.1, RDW 19.8 H, Plt Count 249, MPV 8.3, Neut % (Auto) 71.7, Lymph % (Auto) 18.1, [place] % (Auto) 5.3, Eos % (Auto) 4.4, Baso % (Auto) 0.4, Neut # (Auto) 3.8, Lymph # (Auto) 1.0, [place] # (Auto) 0.3, Eos # (Auto) 0.2, Baso # (Auto) 0.0, Sodium 139, Potassium 3.9, Chloride 108 H, Carbon Dioxide 28, Anion Gap 6.9, BUN 16, Creatinine 0.70, Estimated Creat Clear 53, Estimated GFR 109, Est GFR ( Amer) 132, Glucose 86, Calcium 8.2 L, Magnesium 1.7, Total Bilirubin 0.4, AST 20 D, ALT 13 D, Alkaline Phosphatase 71, Total Protein 5.3 L, Albumin 2.8 L D, Globulin 2.5, Albumin/Globulin Ratio 1.1 06/28/23 12:35: Hgb 7.8 L D, Hct 25.0 L I & O for Last 24 hours: Intake & Output 06/25/23 06/26/23 06/27/23 06/28/23 23:59 23:59 23:59 23:59 Intake Total 960 / 960 Output Total 0 / 0 0 / 0 Balance 0 / 240 960 / 960 Weight 59.165 kg 60.47 kg Constitutional Constitutional: no acute distress Comments: he is hard of hearing *Routine HEENT Exam Head: Present normocephalic Eye: Present EOMI and PERRL ENT: Present mucous membranes moist *Routine Neck Exam Neck: Present supple; Absent lymphadenopathy *Routine Respiratory Exam Respiratory: Present CTA bilaterally *Routine Cardiovascular Exam Cardiovascular: Present RRR *Routine Abdominal Exam Abdominal: Present soft and normoactive bowel sounds; Absent tenderness *Routine Extremities Exam Extremities: Absent cyanosis, clubbing or edema *Routine Skin Exam Skin: Present warm; Absent rash *Routine Neurological Exam Neurological: Present alert and oriented X3 Assessment and Plan *Assessment and plan (1) Acute upper gastrointestinal bleeding: Problem Comment: Punctate focus of bleeding in mid/upper gastric body. Status post epi/clip on 06/01/23. Status: Acute Category: Medical Code(s): K92.2 - Gastrointestinal hemorrhage, unspecified (2) Acute on chronic blood loss anemia: Status: Acute Category: Medical Code(s): D62 - Acute posthemorrhagic anemia (3) CAD (coronary artery disease): Status: Acute Qualifiers: Associated angina: without angina Coronary Disease-Associated Artery/Lesion type: bypass graft [place] vs. transplanted heart: [place] heart Qualified Code(s): I25.810 - Atherosclerosis of coronary artery bypass graft(s) without angina pectoris Category: Medical Code(s): I25.10 - Atherosclerotic heart disease of [place] coronary artery without angina pectoris (4) COPD (chronic obstructive pulmonary disease): Status: Acute Qualifiers: COPD type: unspecified COPD Qualified Code(s): J44.9 - Chronic obstructive pulmonary disease, unspecified Category: Medical Code(s): J44.9 - Chronic obstructive pulmonary disease, unspecified (5) PAD (peripheral artery disease): Status: Acute Category: Medical Code(s): I73.9 - Peripheral vascular disease, unspecified (6) Hyperlipidemia: Status: Acute Category: Medical Code(s): E78.5 - Hyperlipidemia, unspecified (7) Hypertension: Status: Acute Category: Medical Code(s): I10 - Essential (primary) hypertension Plan 78-year-old gentleman with history of CAD, COPD, PAD, previous episode of A-fib who is on rate controlling medication and anticoagulation with Xarelto. Presented for weakness and fatigue Acute on Chronic anemia GI bleed - continue IV PPI - monitor [facility] COPD -DuoNebs every 6 hours scheduled. Continue home Trelegy CAD/PAD hypertension: Hyperlipidemia: Paroxysmal A-fib - Continue Lipitor 80 mg nightly - Continue isosorbide 30 mg daily, metoprolol succinate 50 mg daily, spironolactone 25 mg daily -Holding anticoagulation in the setting of GI bleed and blood loss anemia. Insomnia: Continue mirtazapine 15 mg nightly, Full code Regular diet, n.p.o. at midnight DVT PPx - SCDs only
[2023-06-28] MEDS: MONTELUKAST SODIUM 10MG TAB 10 MG PO (17:35)
[2023-06-28] MEDS: MELATONIN 5MG TABLET 10 MG PO (20:24)
[2023-06-28] MEDS: ATORVASTATIN 40MG TABLET 80 MG PO (20:24)
[2023-06-28] MEDS: MIRTAZAPINE 15 MG TABLET PO (20:24)
[2023-06-28] MEDS: SODIUM CHLORIDE 0.9% 10ML FLUSH SYRINGE 10 ML IV (20:25)
--- NOTE | 2023-06-29 03:43 | PC.NURSE ---
NPO SINCE MIDNIGHT FOR EGD. NO RECTAL BLEEDING. NO COMPLAINTS OF ABDOMINAL PAIN. VITAL SIGNS STABLE.
[2023-06-29] MEDS: miSOPROStoL 200 MCG TABLET PO (03:45)
[2023-06-29 04:00] VITALS: BP 122/58; PULSE 60; RESP 18; TEMP 36.6; O2SAT 95; BMI 20.9
[2023-06-29] MEDS: SUCRALFATE 1GM/10ML SUSP UDC 1 GM PO (05:01)
[2023-06-29] MEDS: FLUTICASONE/UMECLIDIN/VILANTER 100/62.5/25MCG INHALER 1 PUFF IH (06:29)
--- NOTE | 2023-06-29 07:28 | EXP.SURG.PN ---
Subjective Patient reports: no new complaints and feels better Exam Data for Last 24 hours Vital signs and Labs for Last 24 Hours: Temp Pulse Resp BP Pulse Ox O2 Del Method 97.9 F 60 18 122/58 L 95 Room Air 06/29/23 04:00 06/29/23 04:00 06/29/23 04:00 06/29/23 04:00 06/29/23 04:00 06/29/23 06:48 Laboratory Results - last 24 hr 06/27/23 17:03: Blood Type AB Positive, Antibody Screen Negative, Crossmatch (AHG) See Detail 06/28/23 06:14: Sodium 139, Potassium 3.9, Chloride 108 H, Carbon Dioxide 28, Anion Gap 6.9, BUN 16, Creatinine 0.70, Estimated Creat Clear 53, Estimated GFR 109, Est GFR ( Amer) 132, Glucose 86, Calcium 8.2 L, Magnesium 1.7, Total Bilirubin 0.4, AST 20 D, ALT 13 D, Alkaline Phosphatase 71, Total Protein 5.3 L, Albumin 2.8 L D, Globulin 2.5, Albumin/Globulin Ratio 1.1 06/28/23 12:35: Hgb 7.8 L D, Hct 25.0 L 06/28/23 19:59: Hgb 8.0 L, Hct 25.0 L I & O for Last 24 hours: Intake & Output 06/26/23 06/27/23 06/28/23 06/29/23 11:59 11:59 11:59 11:59 Intake Total 490 / 490 1300 / 1300 Output Total 0 / 0 Balance 490 / 490 1299 / 1299 Weight 133 lb 5 oz 130 lb 2 oz Constitutional Constitutional: no acute distress *Routine Respiratory Exam Respiratory: Absent respiratory distress *Routine Cardiovascular Exam Cardiovascular: Absent tachycardia Progress Note: A&P Assessment and plan (1) Acute upper gastrointestinal bleeding: Problem details: Punctate focus of bleeding in mid/upper gastric body. Status post epi/clip on 06/01/23. Status: Acute Assessment and plan: No evidence of definitive ongoing blood loss. Hemoglobin last night at 8 PM was 8.0 (stable). Follow-up a.m. labs The patient wishes to hold off on repeat EGD and do it as an outpatient unless morning labs show significant decline in hemoglobin. (2) Acute on chronic blood loss anemia: Status: Acute
[2023-06-29] MEDS: PANTOPRAZOLE 40MG VIAL 40 MG IV (07:35)
[2023-06-29] MEDS: SPIRONOLACTONE 25MG TABLET 25 MG PO (07:36)
[2023-06-29] MEDS: METOPROLOL SUCCINATE XL 50MG TABLET 50 MG PO (07:36)
[2023-06-29] MEDS: ISOSORBIDE MONO 30MG TAB.ER.24H 30 MG PO (07:36)
[2023-06-29 07:44] LABS: Basophils % 0.4 % (0.1-2.0); Eosinophils # 0.2 K/mm3 (0.0-0.4); Eosinophils % 3.8 % (0.1-12.0); Hematocrit 25.9 % (42.0-52.0); Hemoglobin 8.2 g/dL (14.1-18.0); Lymphocytes % 16.3 % (10-50); Mean Corpuscular HGB Conc 31.7 g/dL (31.8-35.4); Mean Corpuscular Hemoglobin 27.9 pg (27.0-31.2); Mean Platelet Volume 8.1 fl (7.4-10.4); Monocytes # 0.4 K/mm3 (0.1-1.0); Monocytes % 6.3 % (1.7-9.3); Neutrophils # 4.3 K/mm3 (1.8-7.8); Neutrophils % 73.2 % (37.0-80.0); Platelet Count 262 K/mm3 (142-424); Red Blood Count 2.94 M/mm3 (4.60-6.20); Red Cell Distribution Width 19.5 % (11.5-17.5); White Blood Count 5.9 K/mm3 (4.8-10.8)
[2023-06-29 08:00] VITALS: BP 115/42; PULSE 64; RESP 18; TEMP 36.6; O2SAT 96
--- NOTE | 2023-06-29 09:47 | EXP.DC.SUM ---
General Admission date:: 06/28/23 Discharge date: 06/29/23 HPI HPI HPI: 78-year-old male who presented to the ER from Dr. Montes's office due to concern for hypotension and pallor. Patient has been checking his stools lately for blood. Was given guaiac cards and has turned to end. and patient are unsure of the results. To state though however he has been more pale and weak over the past few days. Was seen at his PCPs office for evaluation. Denies any nausea or vomiting, chest pain or shortness of breath. Is alert and oriented x 3. In the ER, workup positive for anemia with hemoglobin of 7.4. Case was discussed with surgery who recommended admission for further evaluation. Patient had a recent hospitalization with an upper GI bleed on Xarelto. Punctate focus was noted in the upper gastric body. Clipped and injected with epinephrine at that time. Responded to transfusion and was stable to go home. He is currently on Xarelto because of previous episode of A-fib but denies any current A-fib or sensation of tachycardia or palpitations. Has been feeling weak however and following up with PCP regularly. Hospital Course Hospital Course Hospital Course: 78-year-old gentleman with history of CAD, COPD, PAD, previous episode of A-fib who is on rate controlling medication and anticoagulation with Xarelto. Presented for weakness and fatigue Acute on Chronic anemia, Hb stable after holding xarelto, contnue to hold until cleared by GS and scope, patient and informed. GI bleed - stable DC on PPI, hold xarelto GS wants to do scope as OP and follow up as OP COPD -DuoNebs every 6 hours scheduled. Continue home Trelegy - stable CAD/PAD - stable hypertension: Hyperlipidemia: Paroxysmal A-fib - Continue Lipitor 80 mg nightly - Continue isosorbide 30 mg daily, metoprolol succinate 50 mg daily, spironolactone 25 mg daily Exam Data for Last 24 hours Vital signs and Labs for Last 24 Hours: Temp Pulse Resp BP Pulse Ox O2 Del Method 97.9 F 64 18 115/42 L 96 Room Air 06/29/23 08:00 06/29/23 08:00 06/29/23 08:00 06/29/23 08:00 06/29/23 08:00 06/29/23 08:00 Laboratory Results - last 24 hr 06/27/23 17:03: Crossmatch (AHG) See Detail 06/28/23 12:35: Hgb 7.8 L D, Hct 25.0 L 06/28/23 19:59: Hgb 8.0 L, Hct 25.0 L 06/29/23 07:30: WBC 5.9, RBC 2.94 L, Hgb 8.2 L, Hct 25.9 L, MCV 88.0, MCH 27.9, MCHC 31.7 L, RDW 19.5 H, Plt Count 262, MPV 8.1, Neut % (Auto) 73.2, Lymph % (Auto) 16.3, [place] % (Auto) 6.3, Eos % (Auto) 3.8, Baso % (Auto) 0.4, Neut # (Auto) 4.3, Lymph # (Auto) 1.0, [place] # (Auto) 0.4, Eos # (Auto) 0.2, Baso # (Auto) 0.0 I & O for Last 24 hours: Intake & Output 06/26/23 06/27/23 06/28/23 06/29/23 23:59 23:59 23:59 23:59 Intake Total 1430 / 1790 360 / 360 Output Total 0 / 0 0 / 0 1 / 1 Balance 0 / 240 1430 / 1790 359 / 359 Weight 59.165 kg 60.47 kg 59.024 kg Constitutional Constitutional: no acute distress *Routine HEENT Exam Head: Present normocephalic Eye: Present EOMI and PERRL ENT: Present mucous membranes moist *Routine Neck Exam Neck: Present supple; Absent lymphadenopathy *Routine Respiratory Exam Respiratory: Present CTA bilaterally *Routine Cardiovascular Exam Cardiovascular: Present RRR *Routine Abdominal Exam Abdominal: Present soft and normoactive bowel sounds; Absent tenderness *Routine Extremities Exam Extremities: Absent cyanosis, clubbing or edema *Routine Skin Exam Skin: Present warm; Absent rash *Routine Neurological Exam Neurological: Present alert and oriented X3 Results Data Completed and Pending Labs on day of discharge: Labs from last 24 hours 06/29/23 06/28/23 06/28/23 07:30 19:59 12:35 WBC 5.9 RBC 2.94 L Hgb 8.2 L 8.0 L 7.8 L D Hct 25.9 L 25.0 L 25.0 L MCV 88.0 MCH 27.9 MCHC 31.7 L RDW 19.5 H Plt Count 262 MPV 8.1 Neut % (Auto) 73.2 Lymph % (Auto) 16.3 [place] % (Auto) 6.3 Eos % (Auto) 3.8 Baso % (Auto) 0.4 Neut # (Auto) 4.3 Lymph # (Auto) 1.0 [place] # (Auto) 0.4 Eos # (Auto) 0.2 Baso # (Auto) 0.0 Crossmatch (AHG) 06/27/23 17:03 WBC RBC Hgb Hct MCV MCH MCHC RDW Plt Count MPV Neut % (Auto) Lymph % (Auto) [place] % (Auto) Eos % (Auto) Baso % (Auto) Neut # (Auto) Lymph # (Auto) [place] # (Auto) Eos # (Auto) Baso # (Auto) Crossmatch (AHG) See Detail DS: Diagnosis Discharge Diagnosis (1) Acute upper gastrointestinal bleeding: Status: Acute Code(s): K92.2 - Gastrointestinal hemorrhage, unspecified Problem details: Punctate focus of bleeding in mid/upper gastric body. Status post epi/clip on 06/01/23. (2) Acute on chronic blood loss anemia: Status: Acute Code(s): D62 - Acute posthemorrhagic anemia Meds Home Medications and Allergies Home Medications Medication Instructions Recorded Confirmed Type albuterol sulfate 90 mcg/actuation 2 puff inhalation QIDP PRN 08/27/17 06/27/23 History aerosol inhaler (Ventolin HFA) Shortness Of Breath folic acid 1 mg tablet 1 mg PO DAILY Supplement 08/27/17 06/27/23 History fluticasone propionate 50 2 spray intranasal DAILY 08/18/22 06/27/23 History mcg/actuation nasal spray,suspension (Flonase Allergy Relief) mirtazapine 15 mg tablet 15 mg PO HS 09/01/22 06/27/23 History multivitamin 1 tab PO DAILY Supplement 09/25/22 06/27/23 History montelukast 10 mg tablet 10 mg PO HS 02/25/23 06/27/23 History atorvastatin 80 mg tablet 80 mg PO HS #30 tabs 04/02/23 06/27/23 Rx isosorbide mononitrate 30 mg 30 mg PO DAILY #90 tabs 04/02/23 06/27/23 Rx tablet,extended release 24 hr metoprolol succinate 50 mg 50 mg PO DAILY #90 tabs 04/02/23 06/27/23 Rx tablet,extended release 24 hr rivaroxaban 20 mg tablet 20 mg PO HS #30 tabs 04/02/23 06/27/23 Rx spironolactone 25 mg tablet 25 mg PO DAILY 90 days #90 tabs 05/04/23 06/27/23 Rx cetirizine 10 mg tablet 10 mg PO DAILY 05/31/23 06/27/23 History oxycodone 10 mg tablet 10 mg PO BIDP PRN pain (scale 05/31/23 06/27/23 History score 7-10) pantoprazole 40 mg tablet,delayed 40 mg PO BID Acid reflux #90 tabs 06/02/23 06/27/23 Rx release fluticasone fur. 100 mcg-umeclid 1 inh inhalation DAILY 06/27/23 06/27/23 History 62.5 mcg-vilant 25 mcg inhalat.powder (Trelegy Ellipta) New Prescriptions to Start Prescriptions: Allergies Allergy/AdvReac Type Severity Reaction Status Date / Time Penicillins Allergy Intermediate I-ITCHING; Verified 06/14/23 11:03 SWELLING Antihistamines - Ethanolamine Allergy Unknown Unknown Verified 06/14/23 11:03 allergy reaction [place] nut Allergy Rash Verified 06/14/23 11:03 doxycycline AdvReac Mild Rash Verified 06/14/23 11:03 Discharge Plan Disposition Patient Disposition: Home, Self-Care Condition: Good Discharge Order Discharge Orders: Discharge Order (Routine); Ordered 06/29/23 Ordered By: Abraham Esteves Follow up Plan Follow up with: Curtis Montes MD [Primary Care Provider] - 07/09/23 11:00 am Kyle Rice MD [Staff Physician] - 07/03/23 3:00 pm (for egd) Prescriptions/Medication Reconciliation: Continued folic acid 1 mg tablet 1 mg PO DAILY albuterol sulfate [Ventolin HFA] 90 mcg/actuation HFA aerosol inhaler 2 puff IH QIDP PRN (Reason: Shortness Of Breath) multivitamin Tablet 1 tab PO DAILY atorvastatin 80 mg tablet 80 mg PO HS Qty: 30 5RF isosorbide mononitrate 30 mg tablet extended release 24 hr 30 mg PO DAILY Qty: 90 5RF metoprolol succinate 50 mg tablet extended release 24 hr 50 mg PO DAILY Qty: 90 3RF spironolactone 25 mg tablet 25 mg PO DAILY 90 Days Qty: 90 3RF fluticasone propionate [Flonase Allergy Relief] 50 mcg/actuation spray,suspension 2 spray intranasal DAILY Rx Instructions: administer into each nostril montelukast 10 mg tablet 10 mg PO HS Patient Comments: TAKE 1 TABLET BY MOUTH ONCE DAILY cetirizine 10 mg tablet 10 mg PO DAILY Patient Comments: TAKE 1 TABLET BY MOUTH ONCE DAILY oxycodone 10 mg tablet 10 mg PO BIDP PRN (Reason: pain (scale score 7-10)) pantoprazole 40 mg tablet,delayed release (DR/EC) 40 mg PO BID Qty: 90 1RF Patient Comments: TAKE 1 TABLET BY MOUTH ONCE DAILY mirtazapine 15 mg tablet 15 mg PO HS Trelegy Ellipta 100-62.5-25 mcg Blister With Device 1 inh INHALATION DAILY Held rivaroxaban 20 mg tablet 20 mg PO HS Qty: 30 5RF Hold Instructions: Resume on 06/29/23. Problem Reconciliation Problems Reviewed?: Yes Patient Discharge Instructions ACTIVITY: Ambulate as tolerated DIET: continue same diet Patient Instructions: DI for Gastrointestinal Bleeding Providers Primary Care Provider: Curtis Montes [place]onn Provider: Abraham Esteves Attending Provider: Abraham Esteves
--- NOTE | 2023-07-03 14:55 | CARE MANAGER ---
Contacted patient's related to hospital discharge.She states he is doing well. There were no new medicatiosn and they already followed up with Dr. Montes and Dr. Rice. JYOTI Main
== END 2023-06-29 10:12 | disposition home or self-care (01) | DRG 378 ==
LOC: ER 18:06 → 2ND 18:49
PROVIDERS: Internal Medicine Adolescent Medicine; Surgery; Admitting Provider Internal Medicine; Emergency Provider Student in an Organized Health Care Education/Training Program; PCP Internal Medicine Adolescent Medicine; Visit Provider Internal Medicine
DX: K92.2 Gastrointestinal hemorrhage, unspecified (principal); D62 Acute posthemorrhagic anemia; I25.810 Atherosclerosis of coronary artery bypass graft(s) without angina pectoris; J44.9 Chronic obstructive pulmonary disease, unspecified; I73.9 Peripheral vascular disease, unspecified; E78.5 Hyperlipidemia, unspecified; I10 Essential (primary) hypertension; I25.10 Atherosclerotic heart disease of native coronary artery without angina pectoris; I48.0 Paroxysmal atrial fibrillation; G47.00 Insomnia, unspecified
CPT/HCPCS: 36415; 80053; 82272; 83605; 83735; 84484; 85014; 85018; 85025; 85610; 85730; 86850; 94640; 99291; G0328; G0378; P9016

== ENCOUNTER 2023-07-03 08:30 | Day surgery (SDC) | payer MEDICARE, OTHER, SELFPAY ==
[2023-07-02 10:00] VITALS: BMI 21.3
[2023-07-03] MEDS: LACTATED RINGERS 1000ML 1,000 ML 100 ML IV (08:46)
[2023-07-03 08:49] VITALS: BP 139/50; PULSE 72; RESP 18; TEMP 36.6; O2SAT 98
--- NOTE | 2023-07-03 09:37 | HMH.SCOPE ---
Procedure: Date: 07/03/23 Patient Date of :: 1945 Procedure Performed:: Esophagogastroduodenoscopy with biopsy Indications:: Recurrent upper gastrointestinal hemorrhage Gastric ulcerations Performing Provider:: Kyle Rice MD Referring Provider:: . Sedation:: Monitored anesthesia care Procedure:: After informed consent was obtained the patient was taken to the endoscopy suite. Sedation ensued after the patient was transferred to the left lateral decubitus position. Pulse, blood pressure, and oxygen saturation were monitored throughout the procedure. The endoscope was advanced beyond the duodenal bulb. Retroflexion within the gastric lumen was accomplished. The gastroscope was carefully removed and the patient was transferred to recovery in stable condition. Please see findings and specimens below for detail. Findings:: No sign of active/recent hemorrhage Clip placed during prior esophagogastroduodenoscopy remains in position with no evidence of hemorrhage Significant improvement with regard to overall inflammatory response/ulcerations Discoloration (white/blanching appearance) in multiple areas within gastric lumen Multiple antral biopsies obtained Specimens:: Antral biopsies Recommendations:: Follow-up pathology Follow-up repeat hemoglobin/hematocrit Likely repeat EGD in 6-8 weeks to confirm complete healing and for additional biopsies of areas of discoloration Complications:: No immediate Estimated blood obtained (mL): 1 Colonoscopy Component Colonoscopy Component Was a colonoscopy performed during today's procedure?: No
[2023-07-03 09:41] VITALS: O2SAT 98
[2023-07-03 10:00] VITALS: BP 110/58; PULSE 69; RESP 16; TEMP 36.2; O2SAT 95
[2023-07-03 10:10] VITALS: BP 123/59; PULSE 71; RESP 16; O2SAT 95
[2023-07-03 10:20] VITALS: BP 135/67; PULSE 63; RESP 18; O2SAT 95
[2023-07-03 10:21] LABS: Hematocrit 27.3 % (42.0-52.0); Hemoglobin 8.4 g/dL (14.1-18.0)
[2023-07-03 10:30] VITALS: BP 140/67; PULSE 59; RESP 18; O2SAT 97
== END 2023-07-03 10:32 | disposition home or self-care (01) ==
PROVIDERS: PCP Internal Medicine Adolescent Medicine; Visit Provider Surgery
PROC: 0DJ08ZZ Inspection of Upper Intestinal Tract, Via Natural or Artificial Opening Endoscopic (ICD-10-PCS; CPT 43235; principal; 2023-07-03 15:00)
DX: K29.50 Unspecified chronic gastritis without bleeding (principal); Z87.19 Personal history of other diseases of the digestive system; K31.89 Other diseases of stomach and duodenum
CPT/HCPCS: 43239; 36415; 85014; 85018; 88305

== ENCOUNTER 2023-07-11 10:14 | Outpatient (CLI) | payer MEDICARE, OTHER, SELFPAY ==
[2023-07-11 10:18] VITALS: BMI 21.4
--- NOTE | 2023-07-11 10:29 | PC.NURSE ---
1029- labs collected via ventipuncture in right hand and sent to lab. pt nicole home
[2023-07-11 10:38] LABS: Basophils % 0.4 % (0.1-2.0); Eosinophils # 0.4 K/mm3 (0.0-0.4); Eosinophils % 4.5 % (0.1-12.0); Hematocrit 31.7 % (42.0-52.0); Hemoglobin 9.5 g/dL (14.1-18.0); Lymphocytes # 1.2 K/mm3 (0.7-4.5); Lymphocytes % 14.5 % (10-50); Mean Corpuscular HGB Conc 29.9 g/dL (31.8-35.4); Mean Corpuscular Hemoglobin 26.6 pg (27.0-31.2); Mean Platelet Volume 8.1 fl (7.4-10.4); Monocytes # 0.5 K/mm3 (0.1-1.0); Monocytes % 6.7 % (1.7-9.3); Neutrophils # 5.9 K/mm3 (1.8-7.8); Neutrophils % 73.8 % (37.0-80.0); Platelet Count 317 K/mm3 (142-424); Red Blood Count 3.56 M/mm3 (4.60-6.20); Red Cell Distribution Width 18.9 % (11.5-17.5); White Blood Count 7.9 K/mm3 (4.8-10.8)
[2023-07-11 10:48] LABS: Chloride 107 mmol/L (98-107)
[2023-07-11 10:49] LABS: Potassium 3.4 mmoL/L (3.5-5.1); Sodium 140 mmol/L (136-145)
[2023-07-11 10:51] LABS: Alanine Aminotransferase 26 U/L (12-78); Alkaline Phosphatase 101 U/L (38-126); Anion Gap 10.4 mEq/L (5-15); Aspartate Amino Transferase 32 U/L (17-59); Bilirubin,Total 0.3 mg/dl (0.2-1.3); Blood Urea Nitrogen 12 mg/dl (9-20); Carbon Dioxide 26 mmol/L (22.0-30.0); Creatinine Clearance Estimated 53 mL/min (50-200); Estimated Glomerular Filt Rate 94 ml/min (>60); GFR (African American) 113 ML/MIN (>60)
[2023-07-11 10:52] LABS: Albumin Level 3.5 g/dl (3.5-5.0); Albumin/Globulin Ratio 1.1 (1.1-1.8); Calcium 8.9 mg/dl (8.4-10.2); Globulin 3.1 g/dL (1.3-3.2); Glucose 97 mg/dl (74-100); Total Protein,Serum 6.6 g/dl (6.3-8.2)
== END 2023-07-11 10:30 | disposition home or self-care (01) ==
LOC: INF 10:15
PROVIDERS: PCP Internal Medicine Adolescent Medicine; Visit Provider Internal Medicine Adolescent Medicine
DX: K92.2 Gastrointestinal hemorrhage, unspecified (principal); D50.0 Iron deficiency anemia secondary to blood loss (chronic)
CPT/HCPCS: 36415; 80053; 85025

== ENCOUNTER 2023-07-24 14:20 | Outpatient (CLI) | payer MEDICARE, OTHER, SELFPAY ==
--- NOTE | 2023-07-24 14:35 | PC.NURSE ---
1435-collected labs via venipuncture stick in left forearm with butterfly needle;pt to d/c home
[2023-07-24 14:42] LABS: Basophils % 0.4 % (0.1-2.0); Eosinophils # 0.5 K/mm3 (0.0-0.4); Hematocrit 28.1 % (42.0-52.0); Hemoglobin 8.7 g/dL (14.1-18.0); Lymphocytes # 1.1 K/mm3 (0.7-4.5); Lymphocytes % 11.8 % (10-50); Mean Corpuscular HGB Conc 30.8 g/dL (31.8-35.4); Mean Corpuscular Volume 84.4 fl (80-94); Mean Platelet Volume 8.4 fl (7.4-10.4); Monocytes # 0.6 K/mm3 (0.1-1.0); Monocytes % 6.1 % (1.7-9.3); Neutrophils # 7.2 K/mm3 (1.8-7.8); Neutrophils % 76.7 % (37.0-80.0); Platelet Count 270 K/mm3 (142-424); Red Blood Count 3.33 M/mm3 (4.60-6.20); White Blood Count 9.4 K/mm3 (4.8-10.8)
[2023-07-24 14:48] LABS: Chloride 109 mmol/L (98-107); Potassium 3.4 mmoL/L (3.5-5.1); Sodium 140 mmol/L (136-145)
[2023-07-24 14:50] LABS: Blood Urea Nitrogen 12 mg/dl (9-20); Estimated Glomerular Filt Rate 109 ml/min (>60); GFR (African American) 132 ML/MIN (>60)
[2023-07-24 14:51] LABS: Anion Gap 9.4 mEq/L (5-15); Calcium 8.8 mg/dl (8.4-10.2); Carbon Dioxide 25 mmol/L (22.0-30.0); Glucose 109 mg/dl (74-100)
== END 2023-07-24 14:36 | disposition home or self-care (01) ==
LOC: LAB 14:21 → INF 14:23
PROVIDERS: PCP Internal Medicine Adolescent Medicine; Visit Provider Internal Medicine
DX: I25.810 Atherosclerosis of coronary artery bypass graft(s) without angina pectoris (principal); J44.9 Chronic obstructive pulmonary disease, unspecified; I73.9 Peripheral vascular disease, unspecified; D64.9 Anemia, unspecified; K92.2 Gastrointestinal hemorrhage, unspecified
CPT/HCPCS: 36415; 80048; 85025

== ENCOUNTER 2023-08-02 07:47 | Outpatient (CLI) | payer MEDICARE, OTHER, SELFPAY ==
--- NOTE | 2023-08-02 07:47 | CT_ITS ---
FINAL REPORT TECHNIQUE: After the administration of oral and intravenous contrast, axial images were obtained through the abdomen and pelvis by computed tomography. The study was performed with techniques to keep radiation dose as low as reasonably achievable, (ALARA). Individual dose reduction techniques using automated exposure control or adjustment of mA and/or kV according to the patient's size were employed. CLINICAL HISTORY: possible hernia COMPARISON: 06/10/2023 FINDINGS: Abdomen: There are small low-attenuation structures in the liver which are too small to accurately characterize and probably related to benign cysts. The gallbladder is present. The spleen, pancreas, and adrenal appear unremarkable. There are benign-appearing cysts in both kidneys. The aorta is normal in caliber. There are dense vascular calcifications within the abdominal aorta and iliac vessels. There is streak artifact related to stents in the iliac vessels. There is no free fluid or adenopathy. Pelvis: The appendix is not identified. There is moderate descending and sigmoid diverticulosis without evidence of diverticulitis. There is a moderate amount of stool in the colon. The urinary bladder is unremarkable. There is no free fluid or adenopathy. There is no evidence of hernia. IMPRESSION: No acute intra-abdominal process. No evidence of hernia. Diverticulosis without evidence of diverticulitis. Reviewed, Interpreted and Dictated by Jakub Jansen MD Transcribed by Nichelle Pearson Authenticated and [facility]
--- NOTE | 2023-08-02 08:37 | CT_ITS ---
FINAL REPORT TECHNIQUE: Routine axial images were obtained from the lung apices to below the diaphragm following IV contrast administration. Individualized dose reduction techniques using automated exposure control or adjustment of the mA and/or kV according to the patient size were employed. CLINICAL HISTORY: LUNG CANCER COMPARISON: 05/02/2023 FINDINGS: There is streak artifact from multiple mediastinal wires. The mediastinal vasculature is adequately opacified. No pleural or pericardial effusion is seen. There is an airspace opacity in the posterior left upper lobe which is more evident than on the prior exam. Airspace opacity in the left suprahilar region is also more evident than prior. There is a new opacity in the medial portion of the left lower lobe measuring 4.0 x 3.0 cm corresponding to the previously described nodules. There is a small cluster of nodules in the right lower lobe measuring about 6 mm in diameter which is stable compared to the prior study. IMPRESSION: Worsening areas of airspace opacity in the posterior left upper lobe, left suprahilar region, and medial left lower lobe. Findings are favored to represent post treatment change. Please correlate with any history of radiation therapy. Stable small cluster of nodules at the right lung base. Reviewed, Interpreted and Dictated by Jakub Jansen MD Transcribed by Nichelle Pearson Authenticated and [facility]
[2023-08-02] MEDS: BARIUM SULFATE(READI-CAT2);450ML BOTTLE 450 ML PO (08:58)
[2023-08-02] MEDS: IOPAMIDOL-370 (76%);100ML BOTTLE 75 ML IV (08:58)
== END 2023-08-02 23:59 ==
LOC: RAD 07:47
PROVIDERS: PCP Internal Medicine Adolescent Medicine; Visit Provider Internal Medicine Medical Oncology
DX: K42.9 Umbilical hernia without obstruction or gangrene (principal); C34.92 Malignant neoplasm of unspecified part of left bronchus or lung
CPT/HCPCS: 71260; 74177; Q9967

== ENCOUNTER 2023-08-08 13:08 | Outpatient (CLI) | payer MEDICARE, OTHER, SELFPAY ==
--- NOTE | 2023-08-08 13:20 | PC.NURSE ---
1320-collected labs via venipuncture stick in left forearm with butterfly needle;pt to oncology appointment.
[2023-08-08 13:35] VITALS: BMI 22.0
[2023-08-08 13:47] LABS: Basophils % 0.6 % (0.1-2.0); Eosinophils # 0.3 K/mm3 (0.0-0.4); Eosinophils % 4.9 % (0.1-12.0); Hematocrit 28.2 % (42.0-52.0); Hemoglobin 8.5 g/dL (14.1-18.0); Lymphocytes # 0.9 K/mm3 (0.7-4.5); Lymphocytes % 14.4 % (10-50); Mean Corpuscular HGB Conc 30.2 g/dL (31.8-35.4); Mean Corpuscular Hemoglobin 24.8 pg (27.0-31.2); Mean Corpuscular Volume 82.2 fl (80-94); Mean Platelet Volume 8.4 fl (7.4-10.4); Monocytes # 0.5 K/mm3 (0.1-1.0); Monocytes % 7.5 % (1.7-9.3); Neutrophils # 4.6 K/mm3 (1.8-7.8); Neutrophils % 72.6 % (37.0-80.0); Platelet Count 279 K/mm3 (142-424); Red Blood Count 3.43 M/mm3 (4.60-6.20); Red Cell Distribution Width 19.5 % (11.5-17.5); White Blood Count 6.4 K/mm3 (4.8-10.8)
[2023-08-08 13:48] LABS: Chloride 107 mmol/L (98-107); Sodium 140 mmol/L (136-145)
[2023-08-08 13:49] LABS: Potassium 3.4 mmoL/L (3.5-5.1)
[2023-08-08 13:51] LABS: Alanine Aminotransferase 15 U/L (12-78); Alkaline Phosphatase 80 U/L (38-126); Aspartate Amino Transferase 27 U/L (17-59); Bilirubin,Total 0.5 mg/dl (0.2-1.3); Blood Urea Nitrogen 10 mg/dl (9-20); Creatinine Clearance Estimated 54 mL/min (50-200); Estimated Glomerular Filt Rate 109 ml/min (>60); GFR (African American) 132 ML/MIN (>60)
[2023-08-08 13:52] LABS: Albumin Level 3.3 g/dl (3.5-5.0); Albumin/Globulin Ratio 1.1 (1.1-1.8); Anion Gap 7.4 mEq/L (5-15); Calcium 8.6 mg/dl (8.4-10.2); Carbon Dioxide 29 mmol/L (22.0-30.0); Glucose 95 mg/dl (74-100); Total Protein,Serum 6.3 g/dl (6.3-8.2)
[2023-08-09 10:45] LABS: Iron 32 ug/dL (49-181)
[2023-08-09 10:59] LABS: Total Iron Binding Capacity 337 ug/dL (261-462)
[2023-08-09 11:27] LABS: Ferritin 7.96 ng/ml (17.9-464)
== END 2023-08-08 13:25 | disposition home or self-care (01) ==
LOC: INF 13:09
PROVIDERS: Internal Medicine Medical Oncology; PCP Internal Medicine Adolescent Medicine; Visit Provider Physician Assistant
DX: C34.92 Malignant neoplasm of unspecified part of left bronchus or lung (principal); D50.8 Other iron deficiency anemias
CPT/HCPCS: 36415; 80053; 82728; 83540; 83550; 85025

== ENCOUNTER 2023-08-13 12:01 | Outpatient (CLI) | payer MEDICARE, OTHER, SELFPAY ==
[2023-08-13 12:25] VITALS: BP 145/54; PULSE 76; RESP 19; O2SAT 97
[2023-08-13] MEDS: SODIUM CHLORIDE 0.9% 50ML BAG 50 ML IV (12:25)
[2023-08-13] MEDS: IRON SUCROSE COMPLEX 200 MG in 0.9 % SODIUM CHLORIDE 100 ML 220 MG IV (12:25)
[2023-08-13 13:03] VITALS: BP 154/49; PULSE 80; RESP 18
== END 2023-08-13 13:03 | disposition home or self-care (01) ==
LOC: INF 12:02
PROVIDERS: PCP Internal Medicine Adolescent Medicine; Visit Provider Internal Medicine Medical Oncology
DX: C34.90 Malignant neoplasm of unspecified part of unspecified bronchus or lung (principal); D50.9 Iron deficiency anemia, unspecified
CPT/HCPCS: 96365; J1756

== ENCOUNTER 2023-08-17 07:39 | Day surgery (SDC) | payer MEDICARE, OTHER, SELFPAY ==
--- NOTE | 2023-07-03 09:11 | EXP.ANES.CKL ---
[facility] Disclaimer: The information contained in this section may have been updated after the patient was seen, as this information can be updated by other users. Medical History PAD (peripheral artery disease) COPD (chronic obstructive pulmonary disease) CAD (coronary artery disease) Vasculopathy Coagulopathy Type 2 [place] (myocardial infarction) Acute blood loss anemia Acute upper gastrointestinal bleeding Nausea vomiting and diarrhea Respiratory failure Pneumonia Sepsis C. difficile colitis Pain around toenail, left foot Incurved toenail Nonhealing nonsurgical wound Hearing loss, bilateral Paroxysmal atrial fibrillation Ischemic colitis Hyperlipidemia Hypertension Cecum perforation PVD (peripheral vascular disease) Non-healing wound Abnormal ankle brachial index (JUSTICE) Claudication Chronic cough Allergic rhinitis COPD exacerbation Lung nodule Smoking greater than 30 pack years Small cell lung cancer Hemoptysis Dyspnea on exertion COPD mixed type Laceration of right ear canal Hearing Loss Impacted cerumen H/O: lung cancer Abdominal bruit Cardiac murmur Claudication Smoker Peripheral arterial disease Carotid artery disease Surgical History History of esophagogastroduodenoscopy (EGD) S/P right hemicolectomy S/P femoral-popliteal bypass surgery Status post insertion of iliac artery stent H/O endarterectomy H/O angioplasty History of cardiac cath History of carpal tunnel release Hx of coronary artery bypass graft Family History Other Asthma Social History Smoking Status: Never smoker alcohol intake: current substance use type: denies use current occupational status: retired Travel in the last 8 weeks: None household members: spouse housing: house marital status: caffeine: Yes [facility] Anesthesia Checklist Patient Identification Patient Identification: Arm Band and Family Structural Data Admitted From: Home Planned Operative Procedure/s: EGD Consent for Planned Operative Procedure(s) Verified: Yes Verified Documents: Surgical Consent and History and Physical NPO Status Verified Time NPO: 00:00 Additional verifications Patient : No Anesthesia Reactions: No Hx Blood Transfusions: Yes Blood Transfusion Reaction: No Cephalosporin Allergy: No Previous Colonoscopy: No Airway Assessment Mallampati Score:: Class II C-Spine Mobility Assessed: Yes TMJ Mobility Assessed: Yes Dentition: Edentulous Neurological Assessment Level of Consciousness: Awake, Alert, Appropriate and Follows Commands Hx Seizures: No Numbness or tingling in extremities: No Anesthesia Plan Anesthesia Risk discussed: Yes ASA Class: III Anesthesia Type: MAC Preoperative Comments Pre-Operative Comments: Tripple bypass 1987. COPD. HTN. Small cell lung cancer.
--- NOTE | 2023-08-17 07:50 | EXP.ANES.CKL ---
[facility] Disclaimer: The information contained in this section may have been updated after the patient was seen, as this information can be updated by other users. Medical History Fungal ear infection Impacted cerumen, bilateral Hearing Loss PAD (peripheral artery disease) COPD (chronic obstructive pulmonary disease) CAD (coronary artery disease) Vasculopathy Coagulopathy Type 2 WA (myocardial infarction) Acute blood loss anemia Acute upper gastrointestinal bleeding Nausea vomiting and diarrhea Respiratory failure Pneumonia Sepsis C. difficile colitis Pain around toenail, left foot Incurved toenail Nonhealing nonsurgical wound Hearing loss, bilateral Paroxysmal atrial fibrillation Ischemic colitis Hyperlipidemia Hypertension Cecum perforation PVD (peripheral vascular disease) Non-healing wound Abnormal ankle brachial index (JUSTICE) Claudication Chronic cough Allergic rhinitis COPD exacerbation Lung nodule Smoking greater than 30 pack years Small cell lung cancer Hemoptysis Dyspnea on exertion COPD mixed type Laceration of right ear canal Impacted cerumen H/O: lung cancer Abdominal bruit Cardiac murmur Claudication Smoker Peripheral arterial disease Carotid artery disease Surgical History History of esophagogastroduodenoscopy (EGD) S/P right hemicolectomy S/P femoral-popliteal bypass surgery Status post insertion of iliac artery stent H/O endarterectomy H/O angioplasty History of cardiac cath History of carpal tunnel release Hx of coronary artery bypass graft Family History Other Asthma Social History Smoking Status: Never smoker alcohol intake: current alcohol intake frequency: a few times a month substance use type: denies use current occupational status: retired Travel in the last 8 weeks: None household members: spouse housing: house marital status: caffeine: Yes [facility] Anesthesia Checklist Patient Identification Patient Identification: Arm Band and Verbal (Name & ) Structural Data Admitted From: Home Planned Operative Procedure/s: EGD Consent for Planned Operative Procedure(s) Verified: Yes NPO Status Verified Time NPO: 00:00 Chart Verification Results Verified: CBC and BMP Additional verifications Anesthesia Reactions: No Hx Blood Transfusions: Yes Blood Transfusion Reaction: No Cephalosporin Allergy: No Airway Assessment Mallampati Score:: Class II C-Spine Mobility Assessed: Yes TMJ Mobility Assessed: Yes Dentition: Dentures-good fit (Removed) Neurological Assessment Level of Consciousness: Awake Hx Seizures: No Numbness or tingling in extremities: No Anesthesia Plan Anesthesia Risk discussed: Yes Anesthesia Plan: Verified ASA Class: IV Anesthesia Type: MAC
[2023-08-17 08:02] VITALS: BP 166/60; PULSE 42; RESP 18; TEMP 36.9; O2SAT 98
--- NOTE | 2023-08-17 08:04 | P.PCN_ITS ---
Procedure: Date: 08/17/23 Patient Date of :: 1945 Procedure Performed:: Esophagogastroduodenoscopy with biopsy Indications:: Patient is a 78-year-old male with history of hypertension, hyperlipidemia, chr onic arterial occlusive disease, coronary artery disease with previous CABG, COPD, history of lung cancer (small cell diagnosed August 2021), hyperlipidemia, hypertension, carotid artery disease, history of atrial fibrillation. He underwent emergent laparotomy with right hemicolectomy by Dr. Servando Dasilva on 03/07/2023 for significant ischemic colitis. He underwent EGD as an inpatient by Dr. Rice on 06/01/2023 for GI blood loss. At that time he was found to have a significant amount of clot in the gastric body and patchy gastritis with multiple punctate linear ulcerations with 1 ulcerations showing some serosanguineous oozing at which time intervention with epinephrine injection and resolution clip placement was performed. He had subsequently been readmitted with GI blood loss and ultimately underwent outpatient EGD with Dr. Rice on 07/03/2023 which revealed no sign of active or recent hemorrhage. There is significant improvement with the overall inflammatory response and ulcerations. Antral biopsies were obtained. This revealed minimal chronic gastritis. He recommended follow-up endoscopy in 6 to 8 weeks. He has had ongoing iron deficiency anemia requiring iron infusion. He has been off of anticoagulants. Cardiology is considering watchman's device. He is ASA class IV. . Performing Provider:: Karri Alarcon MD Referring Provider:: Curtis Montes MD Sedation:: MAC sedation Procedure:: Patient history was obtained and appropriate physical examination was performed. Patient's medications and allergies were reviewed. Informed consent was obtained after explaining the benefits, alternatives, and risks of the procedure including, but not limited to, bleeding, perforation, missed lesions, and adverse reaction to anesthesia medications. Patient was transported to endoscopy procedure room. Patient was connected to monitoring devices. Throughout the procedure the patient's blood pressure, pulse, and oxygen saturations were monitored continuously. Patient ident ification and planned procedure were verified by the staff. Patient was positioned in lateral decubitus position. Olympus endoscope was inserted via the oropharynx and esophagus was cannulated. There was mild tortuosity to the esophagus overall however the esophagus appeared normal. Gastroesophageal junction was encountered at approximately 41 cm. The stomach was cannulated and insufflated. Retroflexion revealed possible minuscule 2 cm sliding hiatal hernia. There was some patchy mild to moderate nonerosive gastritis. Previously placed Hemoclip from upper endoscopy in May was pres ent. There was some mild prominent tissue surrounding this. Pylorus was traversed. Duodenum appeared unremarkable. Endoscope was withdrawn into the gastric lumen. There was some patchy blanching of the gastric mucosa the likely consistent with chronic vascular insufficiency. A couple of biopsies were obtained of the prominent mucosa adjacent to previous Hemoclip. Stomach was desufflated and the endoscope was withdrawn. . Findings:: Gastroesophageal junction at 41 cm Possible minuscule hiatal hernia Mild gastritis Patchy blanching of gastric mucosa, possible chronic vascular insufficiency Previous Hemoclip present with some adjacent prominent mucosa, likely inflammatory, biopsied Recommendations:: Continue medical management. Follow-up on biopsy. Complications:: None immediately apparent Estimated blood obtained (mL): 1 Colonoscopy Component Colonoscopy Component Was a colonoscopy performed during today's procedure?: No
[2023-08-17 08:12] VITALS: BMI 22.2
[2023-08-17] MEDS: LACTATED RINGERS 1000ML 1,000 ML 25 ML IV (08:14)
[2023-08-17 08:25] VITALS: O2SAT 5
[2023-08-17 08:41] VITALS: BP 104/59; PULSE 49; RESP 17; TEMP 36.1; O2SAT 97
[2023-08-17 08:51] VITALS: BP 122/84; PULSE 72; RESP 16; O2SAT 98
[2023-08-17 09:01] VITALS: BP 142/69; PULSE 73; RESP 16; O2SAT 97
[2023-08-17 09:11] VITALS: BP 138/74; PULSE 75; RESP 17; O2SAT 98
== END 2023-08-17 09:12 | disposition home or self-care (01) ==
PROVIDERS: PCP Internal Medicine Adolescent Medicine; Visit Provider Surgery
PROC: 0DJ08ZZ Inspection of Upper Intestinal Tract, Via Natural or Artificial Opening Endoscopic (ICD-10-PCS; CPT 43235; principal; 2023-08-17 09:30)
DX: D13.1 Benign neoplasm of stomach (principal); K29.70 Gastritis, unspecified, without bleeding
CPT/HCPCS: 43239; 88305

== ENCOUNTER 2023-08-20 10:27 | Outpatient (CLI) | payer MEDICARE, OTHER, SELFPAY ==
[2023-08-20 10:31] VITALS: BMI 22.4
[2023-08-20 10:49] VITALS: BP 137/46; PULSE 69; RESP 18; TEMP 36.6; O2SAT 98
[2023-08-20] MEDS: IRON SUCROSE COMPLEX 200 MG in 0.9 % SODIUM CHLORIDE 100 ML 220 MG IV (10:49)
[2023-08-20] MEDS: SODIUM CHLORIDE 0.9% 10ML FLUSH SYRINGE 10 ML IV (10:49)
[2023-08-20] MEDS: SODIUM CHLORIDE 0.9% 50ML BAG 50 ML IV (10:49)
[2023-08-20 11:01] LABS: Chloride 106 mmol/L (98-107); Sodium 137 mmol/L (136-145)
[2023-08-20 11:02] LABS: Potassium 4.1 mmoL/L (3.5-5.1)
[2023-08-20 11:05] LABS: Anion Gap 7.1 mEq/L (5-15); Blood Urea Nitrogen 14 mg/dl (9-20); Calcium 8.8 mg/dl (8.4-10.2); Carbon Dioxide 28 mmol/L (22.0-30.0); Creatinine Clearance Estimated 55 mL/min (50-200); Estimated Glomerular Filt Rate 82 ml/min (>60); GFR (African American) 99 ML/MIN (>60); Glucose 156 mg/dl (74-100)
[2023-08-20 11:07] LABS: Basophils % 0.5 % (0.1-2.0); Eosinophils # 0.4 K/mm3 (0.0-0.4); Eosinophils % 4.7 % (0.1-12.0); Hematocrit 31.4 % (42.0-52.0); Hemoglobin 9.7 g/dL (14.1-18.0); Lymphocytes # 0.7 K/mm3 (0.7-4.5); Lymphocytes % 8.2 % (10-50); Mean Corpuscular Hemoglobin 24.9 pg (27.0-31.2); Mean Corpuscular Volume 80.3 fl (80-94); Mean Platelet Volume 8.2 fl (7.4-10.4); Monocytes # 0.5 K/mm3 (0.1-1.0); Monocytes % 6.5 % (1.7-9.3); Neutrophils # 6.5 K/mm3 (1.8-7.8); Neutrophils % 80.1 % (37.0-80.0); Platelet Count 294 K/mm3 (142-424); Red Blood Count 3.91 M/mm3 (4.60-6.20); Red Cell Distribution Width 21.3 % (11.5-17.5); White Blood Count 8.1 K/mm3 (4.8-10.8)
[2023-08-20 11:30] VITALS: BP 146/44; PULSE 67; RESP 18; O2SAT 98
== END 2023-08-20 11:35 | disposition home or self-care (01) ==
LOC: INF 10:30
PROVIDERS: PCP Internal Medicine Adolescent Medicine; Visit Provider Internal Medicine Medical Oncology
DX: D50.0 Iron deficiency anemia secondary to blood loss (chronic) (principal); C34.90 Malignant neoplasm of unspecified part of unspecified bronchus or lung; I10 Essential (primary) hypertension; Z79.899 Other long term (current) drug therapy
CPT/HCPCS: 80048; 85025; 96365; J1756

== ENCOUNTER 2023-08-23 14:09 | Outpatient (CLI) | payer MEDICARE, OTHER, SELFPAY | END 2023-08-23 23:59 | disposition home or self-care (01) | LOC: LAB.DROPOF 14:10 | PROVIDERS: PCP Internal Medicine Adolescent Medicine; Visit Provider Internal Medicine Pulmonary Disease | DX: J18.9 Pneumonia, unspecified organism (principal); B37.1 Pulmonary candidiasis | CPT/HCPCS: 87070; 87106; 87205; 87220 ==

== ENCOUNTER 2023-08-27 12:03 | Outpatient (CLI) | payer MEDICARE, OTHER, SELFPAY ==
[2023-08-27 12:20] VITALS: BP 131/62; PULSE 68; RESP 18; TEMP 36.7; O2SAT 99
[2023-08-27] MEDS: SODIUM CHLORIDE 0.9% 10ML FLUSH SYRINGE 10 ML IV (12:20)
[2023-08-27] MEDS: SODIUM CHLORIDE 0.9% 50ML BAG 50 ML IV (12:20)
[2023-08-27] MEDS: IRON SUCROSE COMPLEX 200 MG in 0.9 % SODIUM CHLORIDE 100 ML 220 MG IV (12:20)
[2023-08-27 12:50] VITALS: BP 121/57; PULSE 71
== END 2023-08-27 13:00 | disposition home or self-care (01) ==
LOC: INF 12:04
PROVIDERS: PCP Internal Medicine Adolescent Medicine; Visit Provider Internal Medicine Medical Oncology
DX: C34.90 Malignant neoplasm of unspecified part of unspecified bronchus or lung (principal); D50.8 Other iron deficiency anemias
CPT/HCPCS: 96365; J1756

== ENCOUNTER 2023-09-03 08:51 | Outpatient (CLI) | payer MEDICARE, OTHER, SELFPAY ==
[2023-09-03 09:26] VITALS: BP 112/68; PULSE 66; RESP 18; TEMP 36.6; O2SAT 94
[2023-09-03] MEDS: SODIUM CHLORIDE 0.9% 10ML FLUSH SYRINGE 10 ML IV (09:26)
[2023-09-03] MEDS: SODIUM CHLORIDE 0.9% 50ML BAG 50 ML IV (09:26)
[2023-09-03] MEDS: IRON SUCROSE COMPLEX 200 MG in 0.9 % SODIUM CHLORIDE 100 ML 220 MG IV (09:26)
[2023-09-03 10:10] VITALS: BP 119/62; PULSE 69; RESP 18; O2SAT 95
== END 2023-09-03 10:20 | disposition home or self-care (01) ==
LOC: INF 08:52
PROVIDERS: PCP Internal Medicine Adolescent Medicine; Visit Provider Internal Medicine Medical Oncology
DX: C34.90 Malignant neoplasm of unspecified part of unspecified bronchus or lung (principal); D50.9 Iron deficiency anemia, unspecified
CPT/HCPCS: 96365; J1756

== ENCOUNTER 2023-09-04 07:00 | Outpatient (CLI) | payer MEDICARE, OTHER, SELFPAY ==
--- NOTE | 2023-09-04 07:09 | CT_ITS ---
FINAL REPORT TECHNIQUE: Axial images through the chest were performed by computed tomography. This study was performed with techniques to keep radiation doses as low as reasonably achievable, (ALARA). Individualized dose reduction techniques using automated exposure control or adjustment of mA and/or kV according to the patient's size were employed. CLINICAL HISTORY: CT Lung bx abort. change to CT chest without. COMPARISON: 08/02/2023 FINDINGS: CT CHEST WITHOUT CONTRAST: This examination was previously scheduled as a biopsy of a left upper lobe posterior chest mass. The prior CT of August 01 had shown dense coronary artery calcifications, multiple median sternotomy wires, and an abnormal left upper lobe posterior mass best seen on image #15 of series 2, measuring 3.1 x 2.5 cm in size. In the interval since July, there was some improvement in the left upper lobe airspace opacity, but new dense airspace opacities are now seen in the peripheral inferior right upper lobe consistent with acute pneumonia. There is also new airspace opacity in the left lung base. Clinically, the patient was hypoxic and appeared to have developed an acute pneumonia, so the biopsy was aborted at that time. Also noted are multiple simple and complex cysts present in the left kidney, measuring up to 3.5 cm, and gallstones present in the gallbladder. IMPRESSION: An attempt was made to biopsy a left upper lobe posterior and medial chest mass, however the biopsy was aborted secondary to new airspace infiltrates consistent with pneumonia. Reviewed, Interpreted and Dictated by Jakub Jansen MD Transcribed by Loreto Gonzalez Authenticated and [facility]
[2023-09-04 07:31] VITALS: BP 155/67; PULSE 72; RESP 16; TEMP 36.3; O2SAT 94
[2023-09-04 07:43] VITALS: BMI 21.6
[2023-09-04 08:25] LABS: Blood Urea Nitrogen 15 mg/dl (9-20); Creatinine Clearance Estimated 53 mL/min (50-200); Estimated Glomerular Filt Rate 82 ml/min (>60); GFR (African American) 99 ML/MIN (>60)
[2023-09-04 08:35] LABS: INR 1.15 (0.9-1.1); Prothrombin Time 12.3 seconds (10.1-12.5)
[2023-09-04 08:53] LABS: Activated Partial Thrombo Time 30.4 seconds (22.8-30.6)
--- NOTE | 2023-09-04 09:46 | PC.NURSE ---
0925- Decision made by PA radiologist to cancel procedure. Pt updated by PA and family updated by this nurse and radiation therapistlorna Garcia. Pt ok to D/C per PA. No new orders at this time. PT vss.
[2023-09-04 09:50] VITALS: BP 154/62; PULSE 83; RESP 18; O2SAT 95
== END 2023-09-04 09:50 | disposition home or self-care (01) ==
LOC: RAD 07:00
PROVIDERS: PCP Internal Medicine Adolescent Medicine; Visit Provider Internal Medicine Pulmonary Disease
DX: J18.9 Pneumonia, unspecified organism (principal); Z01.812 Encounter for preprocedural laboratory examination; R91.1 Solitary pulmonary nodule; H61.23 Impacted cerumen, bilateral; C34.90 Malignant neoplasm of unspecified part of unspecified bronchus or lung; R10.9 Unspecified abdominal pain
CPT/HCPCS: 36415; 71250; 82565; 84520; 85610; 85730

== ENCOUNTER 2023-09-11 15:30 | Outpatient (CLI) | payer MEDICARE, OTHER, SELFPAY ==
--- NOTE | 2023-09-11 15:32 | XR_ITS ---
FINAL REPORT TECHNIQUE: Chest PA & Lateral CLINICAL HISTORY: SOB FINDINGS: 2 views of the chest were performed. The heart size is normal. The patient is status post median sternotomy. There is a new dense airspace opacity in the mid right upper lobe probably related to acute pneumonia. There is a new lingular opacity on the left which could be related to atelectasis. There are persistent opacities in the left upper lobe and left perihilar region favored to represent scar. IMPRESSION: Dense airspace infiltrate in the mid right upper lobe probably related to acute pneumonia. Continued follow-up is recommended. Reviewed, Interpreted and Dictated by Jakub Jansen MD Transcribed by Valeria Boyle Authenticated and [facility]
== END 2023-09-11 23:59 | disposition home or self-care (01) ==
LOC: RAD 15:31
PROVIDERS: PCP Internal Medicine Adolescent Medicine; Visit Provider Internal Medicine Pulmonary Disease
DX: R06.02 Shortness of breath (principal)
CPT/HCPCS: 71046

== ENCOUNTER 2023-09-17 07:39 | Day surgery (SDC) | payer MEDICARE, OTHER, SELFPAY ==
[2023-09-13 08:10] VITALS: BMI 22.1
--- NOTE | 2023-09-17 07:41 | CA_ITS ---
APPROVED REPORT EXAM: Comprehensive 2D, Doppler, and color-flow Echocardiogram Porcelain Technician: Radha Rogel RVT Ht: 5 ft 6 in Wt: 139lbs BSA: 1.71 BP: 114/47 mmHg Indications: CAD,A-FIB,ASSESS FOR WATCHMAN,HX LUNG CA,SMOKER,COPD,HTN,HLD Procedure After obtaining informed consent, patient underwent transesophageal echo in the [facility]. Type of Sedation : MAC Sedation was administered by Alaina Yang C.R.N.A. Sedation start time: 10:05 Case end Time: 10:20 Transesophageal probe was inserted and advanced into esophagus without difficulty by Dr. Ramesh Gonzalez. The RAJENDRA was performed without complications. Throughout the procedure, the blood pressure, pulse oximetry, cardiac rhythm, and rate were monitored. The patient tolerated the procedure without adverse effects. Recovery from conscious sedation was uneventful and vital signs were stable. Left Ventricle The left ventricle is normal size. The left ventricular systolic function is normal. The left ventricular ejection fraction is within the normal range. There is increased LV wall thickness. There is normal LV segmental wall motion. LVEF is 55%. Right Ventricle The right ventricle is mildly dilated. The right ventricular systolic function is normal. Atria The left atrium size is normal. No thrombus is visualized in the left atrium and the left atrial appendage. The left atrial appendage is chicken wing type. The sizing orifice measures up to 2.1 cm in diameter. The LA appendage depth measures up to 3.0 centimeters in length. The right atrium size is normal. Interatrial septum is intact without evidence of ASD or PFO. Aortic Valve The aortic valve is mildly thickened. Moderate aortic stenosis. RELL by 2D planimetry is 1.3 cm2. Peak velocity 2.9 m/s. Mean AV gradient 20 mmHg. Max AV gradient 32 mmHg. Trace aortic regurgitation. Mitral Valve The mitral valve leaflets are mildly thickened. No evidence of mitral valve stenosis. Trace mitral regurgitation. Tricuspid Valve The tricuspid valve leaflets are thin and pliable. Trace tricuspid regurgitation. RVSP is normal. Pulmonic Valve The pulmonary valve is normal in structure. Mild pulmonic regurgitation. Great Vessels The aortic root is normal in size. The ascending aorta is normal in size. Pericardium There is no pericardial effusion. Other Information Study Quality: Fair Conclusion Normal biventricular systolic function. Mild RV dilation. Mild AI. Moderate (RELL by 2D planimetry is 1.3 cm2. Peak velocity 2.9 m/s. Mean AV gradient 20 mmHg. Max AV gradient 32 mmHg). No thrombus is visualized in the left atrium and the left atrial appendage. The left atrial appendage is chicken wing type. The sizing orifice measures up to 2.1 cm in diameter. The LA appendage depth measures up to 3.0 centimeters in length. Overall, appears favorable for MARGUERITE closure device. Referral to interventional cardiology is recommended more Watchman device placement in the setting history of atrial fibrillation requiring anticoagulation complicated by bleeding episodes. Electronically signed by : Manisha Gonzalez MD 09/20/2023 00:56:45
[2023-09-17 08:01] VITALS: BP 139/57; PULSE 70; RESP 18; TEMP 36.2; O2SAT 95
--- NOTE | 2023-09-17 08:03 | ECG_ITS ---
APPROVED REPORT Exam: Resting ECG HR:78 bpm ECG Measurements Heart Rate 78 AXES TX 173 P 66 QRSd 108 QRS 58 QT 406 T 66 QTc 439 Conclusion SINUS RHYTHM WITH FREQUENT VENTRICULAR PREMATURE COMPLEXES IN A BIGEMINAL PATTERN MODERATE ST DEPRESSION [0.05+ mV ST DEPRESSION] ABNORMAL ECG UNCONFIRMED REPORT Electronically signed by : Curtis Montes MD 09/18/2023 17:29:17
--- NOTE | 2023-09-17 08:36 | EXP.ANES.CKL ---
[facility] Disclaimer: The information contained in this section may have been updated after the patient was seen, as this information can be updated by other users. Medical History Lung nodule seen on imaging study Primary lung cancer Pre-procedure lab exam Pneumonia Fungal ear infection Impacted cerumen, bilateral Hearing Loss PAD (peripheral artery disease) COPD (chronic obstructive pulmonary disease) CAD (coronary artery disease) Vasculopathy Coagulopathy Type 2 [place] (myocardial infarction) Acute blood loss anemia Acute upper gastrointestinal bleeding Nausea vomiting and diarrhea Respiratory failure Sepsis C. difficile colitis Pain around toenail, left foot Incurved toenail Nonhealing nonsurgical wound Hearing loss, bilateral Paroxysmal atrial fibrillation Ischemic colitis Hyperlipidemia Hypertension Cecum perforation PVD (peripheral vascular disease) Non-healing wound Abnormal ankle brachial index (JUSTICE) Claudication Chronic cough Allergic rhinitis COPD exacerbation Lung nodule Smoking greater than 30 pack years Small cell lung cancer Hemoptysis Dyspnea on exertion COPD mixed type Laceration of right ear canal Impacted cerumen H/O: lung cancer Abdominal bruit Cardiac murmur Claudication Smoker Peripheral arterial disease Carotid artery disease Surgical History History of esophagogastroduodenoscopy (EGD) S/P right hemicolectomy S/P femoral-popliteal bypass surgery Status post insertion of iliac artery stent H/O endarterectomy H/O angioplasty History of cardiac cath History of carpal tunnel release Hx of coronary artery bypass graft Family History Other Asthma Social History Smoking Status: Never smoker alcohol intake: current alcohol intake frequency: a few times a month substance use type: denies use current occupational status: retired Travel in the last 8 weeks: None household members: spouse housing: house marital status: caffeine: No [facility] Anesthesia Checklist Patient Identification Patient Identification: Arm Band and Verbal (Name & ) Structural Data Admitted From: Home Planned Operative Procedure/s: RAJENDRA Consent for Planned Operative Procedure(s) Verified: Yes NPO Status Verified Time NPO: 00:00 Additional verifications Anesthesia Reactions: No Hx Blood Transfusions: Yes Blood Transfusion Reaction: No Airway Assessment Mallampati Score:: Class II C-Spine Mobility Assessed: Yes TMJ Mobility Assessed: Yes Dentition: Dentures-good fit (Removed) Neurological Assessment Level of Consciousness: Awake Hx Seizures: No Numbness or tingling in extremities: No Anesthesia Plan Anesthesia Risk discussed: Yes Anesthesia Plan: Verified ASA Class: IV Anesthesia Type: MAC
[2023-09-17 08:39] LABS: Chloride 103 mmol/L (98-107); Sodium 138 mmol/L (136-145)
[2023-09-17 08:40] LABS: Potassium 4.9 mmoL/L (3.5-5.1)
[2023-09-17 08:42] LABS: Anion Gap 13.9 mEq/L (5-15); Blood Urea Nitrogen 15 mg/dl (9-20); Carbon Dioxide 26 mmol/L (22.0-30.0); Creatinine Clearance Estimated 54 mL/min (50-200); Estimated Glomerular Filt Rate 82 ml/min (>60); GFR (African American) 99 ML/MIN (>60)
[2023-09-17 08:43] LABS: Glucose 93 mg/dl (74-100)
[2023-09-17 08:47] LABS: Basophils # 0.1 K/mm3 (0-0.2); Basophils % 0.9 % (0.1-2.0); Eosinophils # 0.5 K/mm3 (0.0-0.4); Eosinophils % 6.2 % (0.1-12.0); Hematocrit 35.8 % (42.0-52.0); Hemoglobin 11.2 g/dL (14.1-18.0); Lymphocytes # 0.8 K/mm3 (0.7-4.5); Lymphocytes % 9.5 % (10-50); Mean Corpuscular HGB Conc 31.3 g/dL (31.8-35.4); Mean Corpuscular Hemoglobin 26.2 pg (27.0-31.2); Mean Corpuscular Volume 83.7 fl (80-94); Mean Platelet Volume 8.1 fl (7.4-10.4); Monocytes # 0.6 K/mm3 (0.1-1.0); Monocytes % 6.7 % (1.7-9.3); Neutrophils # 6.6 K/mm3 (1.8-7.8); Neutrophils % 76.8 % (37.0-80.0); Platelet Count 300 K/mm3 (142-424); Red Blood Count 4.28 M/mm3 (4.60-6.20); Red Cell Distribution Width 23.9 % (11.5-17.5); White Blood Count 8.6 K/mm3 (4.8-10.8)
[2023-09-17 08:52] LABS: Activated Partial Thrombo Time 21.5 seconds (22.8-30.6); INR 1.06 (0.9-1.1); Prothrombin Time 11.4 seconds (10.1-12.5)
[2023-09-17 10:06] VITALS: O2SAT 100
[2023-09-17 10:20] VITALS: BP 116/63; PULSE 61; RESP 18; TEMP 37; O2SAT 100
[2023-09-17 10:30] VITALS: BP 104/61; PULSE 55; RESP 18; O2SAT 95
[2023-09-17 10:40] VITALS: BP 143/74; PULSE 62; RESP 18; O2SAT 94
[2023-09-17 10:55] VITALS: BP 143/74; PULSE 65; RESP 18; O2SAT 94
== END 2023-09-17 10:55 | disposition home or self-care (01) ==
PROVIDERS: PCP Internal Medicine Adolescent Medicine; Visit Provider Internal Medicine
DX: I25.810 Atherosclerosis of coronary artery bypass graft(s) without angina pectoris (principal); J44.9 Chronic obstructive pulmonary disease, unspecified; I73.9 Peripheral vascular disease, unspecified; K92.2 Gastrointestinal hemorrhage, unspecified; D64.9 Anemia, unspecified; I25.10 Atherosclerotic heart disease of native coronary artery without angina pectoris; R94.31 Abnormal electrocardiogram [ECG] [EKG]; Z95.1 Presence of aortocoronary bypass graft
CPT/HCPCS: 80048; 85025; 85610; 85730; 93005; 93270; 93312; 93319

== ENCOUNTER 2023-10-29 09:30 | Day surgery (SDC) | payer MEDICARE, OTHER, SELFPAY ==
[2023-10-25 12:27] VITALS: BMI 22.6
[2023-10-29] VITALS (11 sets, daily range): BP systolic 148–181; BP diastolic 69–86; PULSE 60–81; RESP 14–18; TEMP 36.3–36.7; O2SAT 91–98
--- NOTE | 2023-10-29 09:55 | P.PNANES_ITS ---
[facility] Disclaimer: The information contained in this section may have been updated after the patient was seen, as this information can be updated by other users. Medical History Lung nodule seen on imaging study Primary lung cancer Pre-procedure lab exam Pneumonia Fungal ear infection Impacted cerumen, bilateral Hearing Loss PAD (peripheral artery disease) COPD (chronic obstructive pulmonary disease) CAD (coronary artery disease) Vasculopathy Coagulopathy Type 2 AR (myocardial infarction) Acute blood loss anemia Acute upper gastrointestinal bleeding Punctate focus of bleeding in mid/upper gastric body. Status post epi/clip on 06/01/23. Repeat EGD secondary to recurrent bleeding on July 03, 2023 revealed no sign of active hemorrhage. Nausea vomiting and diarrhea Respiratory failure Sepsis C. difficile colitis Pain around toenail, left foot Incurved toenail Nonhealing nonsurgical wound Hearing loss, bilateral Paroxysmal atrial fibrillation Ischemic colitis Hyperlipidemia Hypertension Cecum perforation PVD (peripheral vascular disease) Non-healing wound Abnormal ankle brachial index (JUSTICE) Claudication Chronic cough Allergic rhinitis COPD exacerbation Lung nodule Smoking greater than 30 pack years Small cell lung cancer Hemoptysis Dyspnea on exertion COPD mixed type Laceration of right ear canal Impacted cerumen H/O: lung cancer Abdominal bruit Cardiac murmur Claudication Smoker Peripheral arterial disease Carotid artery disease Surgical History History of esophagogastroduodenoscopy (EGD) S/P right hemicolectomy S/P femoral-popliteal bypass surgery Status post insertion of iliac artery stent H/O endarterectomy H/O angioplasty History of cardiac cath History of carpal tunnel release Hx of coronary artery bypass graft Family History Other Asthma Social History Smoking Status: Former smoker tobacco type: cigarettes packs per day: 1 alcohol intake: never substance use type: denies use current occupational status: retired Travel in the last 8 weeks: None household members: spouse housing: house marital status: caffeine: No [facility] Anesthesia Checklist Patient Identification Patient Identification: Arm Band Structural Data Admitted From: Home Planned Operative Procedure/s: Bronchoscopy with Transbronchial Biopsy Consent for Planned Operative Procedure(s) Verified: Yes Verified Documents: Surgical Consent and History and Physical NPO Status Verified Time NPO: 00:00 Additional verifications Anesthesia Reactions: No Hx Blood Transfusions: Yes Blood Transfusion Reaction: No Airway Assessment Mallampati Score:: Class II C-Spine Mobility Assessed: Yes TMJ Mobility Assessed: Yes Dentition: Edentulous Neurological Assessment Level of Consciousness: Awake, Alert and Appropriate Anesthesia Plan Anesthesia Risk discussed: Yes Anesthesia Plan: Verified ASA Class: III Anesthesia Type: General
[2023-10-29 10:06] LABS: POC Glucose,Bedside 98 (70-110)
[2023-10-29 10:09] LABS: Basophils # 0.1 K/mm3 (0-0.2); Basophils % 0.5 % (0.1-2.0); Eosinophils # 0.7 K/mm3 (0.0-0.4); Eosinophils % 7.1 % (0.1-12.0); Hemoglobin 12.8 g/dL (14.1-18.0); Lymphocytes % 10.4 % (10-50); Mean Corpuscular HGB Conc 32.8 g/dL (31.8-35.4); Mean Corpuscular Hemoglobin 29.4 pg (27.0-31.2); Mean Corpuscular Volume 89.7 fl (80-94); Mean Platelet Volume 8.2 fl (7.4-10.4); Monocytes # 0.6 K/mm3 (0.1-1.0); Monocytes % 6.3 % (1.7-9.3); Neutrophils # 7.2 K/mm3 (1.8-7.8); Neutrophils % 75.7 % (37.0-80.0); Platelet Count 164 K/mm3 (142-424); Red Blood Count 4.34 M/mm3 (4.60-6.20); Red Cell Distribution Width 23.8 % (11.5-17.5); White Blood Count 9.5 K/mm3 (4.8-10.8)
[2023-10-29 10:14] LABS: Chloride 110 mmol/L (98-107); Potassium 3.7 mmoL/L (3.5-5.1); Sodium 140 mmol/L (136-145)
[2023-10-29 10:17] LABS: Alanine Aminotransferase 29 U/L (12-78); Albumin Level 3.8 g/dl (3.5-5.0); Albumin/Globulin Ratio 1.3 (1.1-1.8); Alkaline Phosphatase 88 U/L (38-126); Anion Gap 9.7 mEq/L (5-15); Aspartate Amino Transferase 32 U/L (17-59); Bilirubin,Total 0.5 mg/dl (0.2-1.3); Blood Urea Nitrogen 15 mg/dl (9-20); Calcium 8.9 mg/dl (8.4-10.2); Carbon Dioxide 24 mmol/L (22.0-30.0); Creatinine Clearance Estimated 56 mL/min (50-200); Estimated Glomerular Filt Rate 94 ml/min (>60); GFR (African American) 113 ML/MIN (>60); Globulin 2.9 g/dL (1.3-3.2); Glucose 104 mg/dl (74-100); Total Protein,Serum 6.7 g/dl (6.3-8.2)
[2023-10-29 10:19] LABS: INR 0.94 (0.9-1.1); Prothrombin Time 10.6 seconds (10.1-12.5)
--- NOTE | 2023-10-29 11:22 | XR_ITS ---
FINAL REPORT CLINICAL HISTORY: BRONCH COMPARISON: None FINDINGS: FLUOROSCOPY LESS THAN 1 HOUR HISTORY: FINDINGS: Fluoroscopic guidance was provided for intraoperative bronchoscopy. A single spot film was obtained. 2.18 minutes of fluoroscopy time were used. 13.49 mGy is the intraoperative dosage. IMPRESSION: As above. Reviewed, Interpreted and Dictated by Yas Coe MD Transcribed by Loreto Gonzalez Authenticated and [facility]
--- NOTE | 2023-10-29 11:42 | EXP.BRONCH.N ---
Procedure: Date: 10/29/23 Patient Date of :: 1945 Procedure Performed:: Bronchoscopy with airway examination bronchoalveolar lavage and transbronchial lung biopsy Indications:: Nonresolving pneumonia Performing Provider:: Lexis Finch MD Referring Provider:: Dr. Brewster Sedation:: General anesthesia Procedure:: Bronchoscopy airway examination, bronchoalveolar lavage and transbronchial lung biopsy: A clean DIAGNOSTIC bronchoscopy was advanced through the ET tube and airways were examined up to subsegmental bronchi. Airways appeared grossly normal, no evidence of mucoid secretions, mucous plugging active bleeding/old blood clots noted. Bronchoalveolar lavage was performed in the RIGHT MIDDLE LOBE with instillation of 60 cc normal saline with return of 30 cc back. BAL fluid was sent for cell count and differential along with bacterial fungal and AFB stain and cultures. Transbronchial biopsy was performed in the RIGHT MIDDLE LOBE with a total of 7 biopsies performed, 5 biopsy specimens were sent in formalin for cytopathologic examination. The other 2 biopsy samples, were sent one each in two separate normal saline specimen cups for bacterial fungal and AFB stain cultures. Special request was also made for the pathologist to evaluate for AFB and fungal organisms on the cytopathologic examination. Bronchoalveolar lavage was also performed in the LEFT UPPER LOBE. Will perform a bronchoalveolar aspiration noted to have bleeding from the left upper lobe apical segment. Hemostasis was achieved after holding the pressure and instillation of cold saline. A total of 60 cc normal saline was instilled with return of 20 cc of blood-tinged fluid. BAL fluid was sent for cell count and differential along with bacterial fungal and AFB stain and cultures. BAL fluid was also sent for cytopathologic examination. Patient tolerated the procedure with no immediate acute complications. We will follow the patient in pulmonary clinic in 7 to 10 days. Findings:: Please see the procedure note Recommendations:: Postoperative bronchoscopy instructions Follow in pulmonary clinic in 5 to 7 days Complications:: No acute immediate complication Estimated blood obtained (mL): 10
--- NOTE | 2023-10-29 11:50 | XR_ITS ---
FINAL REPORT CLINICAL HISTORY: post bronch COMPARISON: 09/11/2023 FINDINGS: A portable view of the chest was obtained. The patient has undergone a prior midline sternotomy. Cardiac and mediastinal silhouettes are within normal limits. There has been interval improvement in the right upper lobe opacity since the prior chest x-ray of September 10. There is however worsening of the left upper lobe and left perihilar opacities when compared to the prior exam.. No pneumothorax is seen, but a component of post bronchoscopy hemorrhage cannot be excluded.. IMPRESSION: Interval improvement in right upper lobe opacity, however there is worsening of the left upper lobe and perihilar opacities when compared to the prior exam. No pneumothorax is seen, but a component of post bronchoscopy hemorrhage is not excluded.. Reviewed, Interpreted and Dictated by Yas Coe MD Transcribed by Loreto Gonzalez Authenticated and [facility]
--- NOTE | 2023-10-29 11:55 | EXP.ANES.I ---
[facility] Anesthesia Record Part I Anesthesia Record I Intake, IV Amount: 800 Hydration: Adequate Estimated blood loss (mL): 1 Urine output (mL): 0 Blood Products used (#): none Blood Pressure: 155/86 SaO2: 94 Pulse Rate: 81 Airway Patency: Patent Respiratory Rate: 18 Temperature: 97.4 F Patient is:: Stable Stable to PACU at:: 11:47
[2023-10-29 12:03] LABS: POC Glucose,Bedside 101 (70-110)
--- NOTE | 2023-10-30 12:33 | P.PNANES_ITS ---
[facility] Anesthesia Record Part II Anesthesia Record Part II Discharge Time: 12:27 Destination: Surgical Day Care (OP Surgery) PACU nurse assessment reviewed?: Yes Patient Condition:: Good Anesthesia Complications:: None Swallowing reflex intact?: Yes Airway Patency: Patent Cyanosis?: No Blood Pressure: 170/69 SaO2: 93 Respiratory Rate: 14 Pulse Rate: 60 Temperature: 98.1 F Mental Status: Alert & Oriented Pain level:: 0 Nausea and/or vomitting:: None Intake, IV Amount: 0 Hydration: Adequate
[2023-10-30 12:34] VITALS: BP 170/69; PULSE 60; RESP 14; TEMP 36.7; O2SAT 93
[2023-12-03 14:45] LABS: Aspergillus Antigen, BAL/Serum 1.33; PDF: SCANNED IMAGE
== END 2023-10-29 13:00 | disposition home or self-care (01) ==
PROVIDERS: PCP Internal Medicine Adolescent Medicine; Visit Provider Internal Medicine Pulmonary Disease
PROC: (CPT 31624; principal; 2023-10-29 11:00)
DX: J18.9 Pneumonia, unspecified organism (principal); C34.32 Malignant neoplasm of lower lobe, left bronchus or lung; R05.3 Chronic cough; J44.9 Chronic obstructive pulmonary disease, unspecified; Z87.891 Personal history of nicotine dependence
CPT/HCPCS: 31624; 31628; 71045; 76000; 80053; 82962; 85025; 85610; 87070; 87077; 87102; 87116; 87186; 87205; 87206; 87305; 88112; 88305; 88312; 89051; J3490; J1100; J2405; J3010

== ENCOUNTER 2023-12-29 06:39 | Observation (INO) | payer MEDICARE, OTHER, SELFPAY ==
[2023-12-29] VITALS (20 sets, daily range): BP systolic 110–169; BP diastolic 43–106; PULSE 57–102; RESP 15–23; TEMP 36.5–37; O2SAT 84–98; BMI 24.2
--- NOTE | 2023-12-29 06:53 | ECG_ITS ---
APPROVED REPORT Exam: Resting ECG HR:73 bpm ECG Measurements Heart Rate 73 AXES NC 159 P 87 QRSd 118 QRS 62 QT 431 T 89 QTc 457 Conclusion SINUS RHYTHM MODERATE INTRAVENTRICULAR CONDUCTION DELAY [110+ ms QRS DURATION] MODERATE ST DEPRESSION [0.05+ mV ST DEPRESSION] ABNORMAL ECG Electronically signed by : KELLY BRADFORD, 12/29/2023 15:56:01
--- NOTE | 2023-12-29 06:53 | CT_ITS ---
PROCEDURE INFORMATION: Exam: CTA Chest With Contrast Exam date and time: 12/29/2023 7:55 AM Age: 78 years old Clinical indication: Cough; Additional info: Lung cancer, cough on new TECHNIQUE: Imaging protocol: Computed tomographic angiography of the chest with contrast. Exam focused on the arteries. 3D rendering (Not supervised by radiologist): MIP and/or 3D reconstructed images were created by the technologist. Radiation optimization: All CT scans at this facility use at least one of these dose optimization techniques: automated exposure control; mA and/or kV adjustment per patient size (includes targeted exams where dose is matched to clinical indication); or iterative reconstruction. Contrast material: ISOVUE 370; Contrast volume: 70 ml; Contrast route: INTRAVENOUS (IV); COMPARISON: CT ANGIO CHEST PE PROTOCOL 04/02/2023 11:09 AM FINDINGS: Pulmonary arteries: Normal. No pulmonary emboli. Aorta: Unremarkable. No aortic aneurysm. No aortic dissection. Lungs: Spiculated mass in the right middle lobe 2.9 x 2.4 cm. (series 5, image 84) It was not present in April 07. It measures 89 Hounsfield units. This may represent lung cancer. Differential includes pneumonia but the spiculation and solid appearance favors malignancy. Consolidation in the right lower lobe. Patchy ground-glass opacities in the left lower lobe. Findings may reflect metastatic disease and/or pneumonia. Pleural spaces: Unremarkable. No pneumothorax. No pleural effusion. Heart: There is calcification of the aortic valve annulus. There is calcification of the mitral valve annulus. Coronary arteries: Coronary artery calcifications may indicate coronary artery disease. Lymph nodes: Unremarkable. No enlarged lymph nodes. Bones/joints: Median sternotomy. Unhealed right posterior 11th rib fracture Soft tissues: Unremarkable. IMPRESSION: 1. Spiculated mass in the right middle lobe 2.9 x 2.4 cm. (series 5, image 84) It was not present in April 07. It measures 89 Hounsfield units. This may represent lung cancer. Differential includes pneumonia but the spiculation and solid appearance favors malignancy. 2. Consolidation in the right lower lobe. Patchy ground-glass opacities in the left lower lobe. Findings may reflect metastatic disease and/or pneumonia.
--- NOTE | 2023-12-29 07:08 | ED_ITS ---
Discharge Plan Disposition Patient Disposition: Admitted Chief Complaint: Shortness of Breath/Dyspnea Prescriptions Prescriptions: No Action folic acid 1 mg tablet 1 mg PO DAILY albuterol sulfate [Ventolin HFA] 90 mcg/actuation HFA aerosol inhaler 2 puff IH QIDP PRN (Reason: Shortness Of Breath) multivitamin Tablet 1 tab PO DAILY prednisone 20 mg tablet See Rx Instructions .Route .COMPLEX Qty: 50 0RF Rx Instructions: Take 40mg (2 tab) oral once daily for 14 days followed by 20mg (1 tabs) oral once daily for 14 days followed by 10mg(Half tab) oral once daily for 14 days then stop taking prednisone. isosorbide mononitrate 30 mg tablet extended release 24 hr 30 mg PO DAILY Qty: 90 5RF metoprolol succinate 50 mg tablet extended release 24 hr 50 mg PO DAILY Qty: 90 3RF spironolactone 25 mg tablet 25 mg PO DAILY 90 Days Qty: 90 3RF Zyrtec 10 mg capsule 10 mg PO DAILY PRN (Reason: allergic symptoms) Qty: 30 0RF montelukast 10 mg tablet 10 mg PO DAILY 90 Days Qty: 90 3RF atorvastatin 80 mg tablet 80 mg PO HS Qty: 30 0RF Rx Instructions: Resuming prior dose as patient completed course of itraconazole benzonatate 200 mg capsule 200 mg PO TID PRN (Reason: cough) Qty: 30 0RF EQ Cough & Chest Congestion DM 20-200 MG/20ML Oral Liquid See Rx Instructions .ROUTE .COMPLEX Qty: 237 0RF Dose Instruction: TAKE 20 ML EVERY 6 HOURS NEEDED FOR COUGH Rx Instructions: TAKE 20 ML EVERY 6 HOURS NEEDED FOR COUGH fluticasone propionate [Flonase Allergy Relief] 50 mcg/actuation spray,suspension 2 spray intranasal DAILY Rx Instructions: administer into each nostril montelukast 10 mg tablet 10 mg PO HS Patient Comments: TAKE 1 TABLET BY MOUTH ONCE DAILY oxycodone 10 mg tablet 10 mg PO BIDP PRN (Reason: pain (scale score 7-10)) pantoprazole 40 mg tablet,delayed release (DR/EC) 40 mg PO BID Qty: 90 1RF Patient Comments: TAKE 1 TABLET BY MOUTH ONCE DAILY mirtazapine [Remeron] 15 mg tablet 30 mg PO HS Trelegy Ellipta 100-62.5-25 mcg Blister With Device 1 inh INHALATION DAILY Referrals Follow up/Referrals: Curtis Montes MD [Primary Care Provider] - See instructions Clinical Impressions Clinical Impression: COPD (chronic obstructive pulmonary disease), Pneumonia, Elevated troponin, Lung cancer Print Language Print Language: Maltese Discharge ED Provider: Matthew Medina General Chief Complaint: Shortness of Breath/Dyspnea Stated Complaint: coughing, wheezing with phlegm Time Seen by Provider: 12/29/23 06:53 Mode of Arrival: Ambulatory Source of Information: Patient and Spouse Limitations: No Limitations Description of Symptoms (Recalled from ER Triage Doc. by RN): Pt ambulatory to ED with c/o SOA, wheezing , productive cough with white/yellow sputum since yesterday morning. Pt reports hx of COPD, and lung cancer X 2.5 years. History of Present Illness HPI narrative: Patient is a 78-year-old male with past medical history of lung cancer for the last 2 and half years who presents emergency department for evaluation of cough and shortness of breath. History is obtained by patient and family at bedside. Patient originally had chemo and radiation 2 years ago and has had a small area for which he is undergoing surveillance. He had COVID 3 weeks ago from a positive test at home and has had waxing and waning upper respiratory symptoms in the subacute phase and has positive sick contact with COVID over the last week. No chest pain. He has a history of previous ischemic bowel with subsequent anticoagulation with subsequent recurrent GI bleeds that was taken off of anticoagulation is now on aspirin only. No other acute complaints at this time. Related Data Home Medications ?Medication ?Instructions ?Recorded ?Confirmed albuterol sulfate 90 mcg/actuation 2 puff inhalation QIDP PRN 08/27/17 11/07/23 aerosol inhaler (Ventolin HFA) Shortness Of Breath folic acid 1 mg tablet 1 mg PO DAILY Supplement 08/27/17 11/07/23 fluticasone propionate 50 2 spray intranasal DAILY 08/18/22 11/07/23 mcg/actuation nasal spray,suspension (Flonase Allergy Relief) mirtazapine 15 mg tablet (Remeron) 30 mg PO HS 09/01/22 11/07/23 multivitamin 1 tab PO DAILY Supplement 09/25/22 11/07/23 montelukast 10 mg tablet 10 mg PO HS 02/25/23 11/07/23 oxycodone 10 mg tablet 10 mg PO BIDP PRN pain (scale 05/31/23 11/07/23 score 7-10) fluticasone fur. 100 mcg-umeclid 1 inh inhalation DAILY 06/27/23 11/07/23 62.5 mcg-vilant 25 mcg inhalat.powder (Trelegy Ellipta) Previous Rx's ?Medication ?Instructions ?Recorded isosorbide mononitrate 30 mg 30 mg PO DAILY #90 tabs 04/02/23 tablet,extended release 24 hr metoprolol succinate 50 mg 50 mg PO DAILY #90 tabs 04/02/23 tablet,extended release 24 hr spironolactone 25 mg tablet 25 mg PO DAILY 90 days #90 tabs 05/04/23 pantoprazole 40 mg tablet,delayed 40 mg PO BID Acid reflux #90 tabs 06/02/23 release cetirizine 10 mg capsule (Zyrtec) 10 mg PO DAILY PRN allergic 09/12/23 symptoms #30 caps montelukast 10 mg tablet 10 mg PO DAILY 90 days #90 tabs 09/28/23 atorvastatin 80 mg tablet 80 mg PO HS #30 tabs 10/12/23 prednisone 20 mg tablet See Rx Instructions .Route 11/02/23 .COMPLEX #50 tabs benzonatate 200 mg capsule 200 mg PO TID PRN cough #30 caps 12/04/23 EQ Cough & Chest Congestion DM See Rx Instructions .Route 12/27/23 20-200 MG/20ML Oral Liquid .COMPLEX #237 mL Allergies Allergy/AdvReac Type Severity Reaction Status Date / Time Penicillins Allergy Intermediate I-ITCHING; Verified 11/07/23 09:20 SWELLING Antihistamines - Ethanolamine Allergy Unknown Unknown Verified 11/07/23 09:20 allergy reaction Friendship nut Allergy Rash Verified 11/07/23 09:20 doxycycline AdvReac Mild Rash Verified 11/07/23 09:20 [facility] Disclaimer: The information contained in this section may have been updated after the patient was seen, as this information can be updated by other users. Medical History (Updated 12/29/23 @ 10:21 by Matthew Medina MD) Organizing pneumonia Lung nodule seen on imaging study Primary lung cancer Pre-procedure lab exam Pneumonia Fungal ear infection Impacted cerumen, bilateral Hearing Loss PAD (peripheral artery disease) COPD (chronic obstructive pulmonary disease) CAD (coronary artery disease) Vasculopathy Coagulopathy Type 2 IL (myocardial infarction) Acute blood loss anemia Acute upper gastrointestinal bleeding Nausea vomiting and diarrhea Respiratory failure Sepsis C. difficile colitis Pain around toenail, left foot Incurved toenail Nonhealing nonsurgical wound Hearing loss, bilateral Paroxysmal atrial fibrillation Ischemic colitis Hyperlipidemia Hypertension Cecum perforation PVD (peripheral vascular disease) Non-healing wound Abnormal ankle brachial index (JUSTICE) Claudication Chronic cough Allergic rhinitis COPD exacerbation Lung nodule Smoking greater than 30 pack years Small cell lung cancer Hemoptysis Dyspnea on exertion COPD mixed type Laceration of right ear canal Impacted cerumen H/O: lung cancer Abdominal bruit Cardiac murmur Claudication Smoker Peripheral arterial disease Carotid artery disease Surgical History History of esophagogastroduodenoscopy (EGD) S/P right hemicolectomy S/P femoral-popliteal bypass surgery Status post insertion of iliac artery stent H/O endarterectomy H/O angioplasty History of cardiac cath History of carpal tunnel release Hx of coronary artery bypass graft Family History Other Asthma Social History Smoking Status: Former smoker tobacco type: cigarettes packs per day: 1 alcohol intake: never substance use type: denies use current occupational status: retired Travel in the last 8 weeks: None household members: spouse housing: house marital status: caffeine: No ROS Obtained: Yes Systems reviewed as appropriate & no additional complaints except as documented Physical Exam General General appearance: alert and in no apparent distress Head Head exam: atraumatic and normocephalic Eye Eye exam: Present PERRL and EOMI ENT ENT exam: Present mucous membranes moist Neck Neck exam: Present normal inspection Chest Chest inspection: Present normal inspection and symmetric chest wall rise Respiratory Respiratory exam: Present other (Severely diminished air movement throughout); Absent normal lung sounds bilaterally or respiratory distress Cardiovascular Cardiovascular exam: Present regular rate and normal rhythm Abdominal Exam Abdominal exam: Present soft; Absent tenderness Extremities Exam Extremities exam: Present normal inspection Neurological Exam Neurological exam: Present alert; Absent motor sensory deficit Psychiatric Psychiatric exam: Present normal affect Skin Skin exam: Present warm and dry HEART Score HEART Score HEART Score assessment performed?: Yes History (anamnesis): Slightly suspicious ECG: Non-specific disturbance Age: >65 years Risk factors: Atherosclerosis history Troponin: 1-3x normal limit HEART Score: 6 Critical Care Critical Care Time Critical Care Time: Yes Attestation: On 12/29/23, the high probability of a clinically significant, sudden or life threatening deterioration of the following system(s) required my full and direct attention, intervention and personal management. The time I documented below is in addition to time spent performing reported procedures but includes the following listed in this critical care notation. Total Time Total Critical Care Time: 40 Medical Decision Making Ricardo Inquiry Pt receiving controlled substance: No Vital Signs Vital Signs: 12/29/23 06:41 12/29/23 07:31 12/29/23 08:01 Temperature 97.7 F Temperature Source Oral Pulse Rate 64 70 Pulse Rate [Apical] 72 Respiratory Rate 23 15 18 Blood Pressure 110/53 L 121/56 L Blood Pressure [Left Arm] 169/86 H Blood Pressure Mean [Left Arm] 113 Blood Pressure Source [Left Arm] Automatic Cuff Blood Pressure Position [Left Arm] Sitting 02 Sat by Pulse Oximetry 84 L 91 L 94 L Oxygen Delivery Method Room Air Nasal Cannula Nasal Cannula 12/29/23 08:30 12/29/23 09:00 12/29/23 09:30 Temperature Temperature Source Pulse Rate 83 76 76 Pulse Rate [Apical] Respiratory Rate 20 18 17 Blood Pressure 143/53 H 150/62 H 132/58 L Blood Pressure [Left Arm] Blood Pressure Mean [Left Arm] Blood Pressure Source [Left Arm] Blood Pressure Position [Left Arm] 02 Sat by Pulse Oximetry 96 95 96 Oxygen Delivery Method Nasal Cannula Lab Data Labs: Lab Results 12/29/23 06:53: VBG pH 7.31, VBG pCO2 45.3, VBG pO2 35.1, VBG HCO3 22.5 L, VBG Total CO2 23.8, VBG O2 Saturation 59.6, VBG Base Excess -3.8 L, VBG Lactic Acid 2.7 H 12/29/23 07:05: WBC 16.1 H, RBC 4.22 L, Hgb 12.6 L, Hct 41.2 L, MCV 97.7 H, MCH 30.0, MCHC 30.7 L, RDW 18.9 H, Plt Count 242, MPV 8.6, Neut % (Auto) 86.6 H, L ymph % (Auto) 7.2 L, [place] % (Auto) 5.0, Eos % (Auto) 1.0, Baso % (Auto) 0.3, N eut # (Auto) 14.0 H, Lymph # (Auto) 1.2, [place] # (Auto) 0.8, Eos # (Auto) 0.2, Baso # (Auto) 0.1, Sodium 136, Potassium 3.8, Chloride 106, Carbon Dioxide 26, Anion Gap 7.8, BUN 17, Creatinine 1.00, Estimated Creat Clear 60, Estimated GFR 72, Est GFR ( Amer) 88, Glucose 138 H, Calcium 9.1, Total Bilirubin 1.6 H , AST 39, ALT 37, Alkaline Phosphatase 58, Troponin I 0.05 H, Total Protein 7.1, Albumin 3.9, Globulin 3.2, Albumin/Globulin Ratio 1.2 12/29/23 07:15: SARS-CoV-2 (PCR) Detected A, Influenza A Untype (PCR) Not detected, Influenza Type B (PCR) Not detected 12/29/23 07:05 12/29/23 07:05 Response Orders (Tests/Meds): ED MEDICATIONS Generic Name Dose Route Start Last Admin Trade Name Freq PRN Reason Stop Dose Admin Sodium Chloride 10 ml 12/29/23 08:23 12/29/23 08:25 Sodium Chloride 0.9% 10ml Syr (Rad Only) IV 01/28/24 08:22 10 ml NEEDED PRN Administration Maintain IV Site Discontinued Medications Generic Name Dose Route Start Last Admin Trade Name Freq PRN Reason Stop Dose Admin Albuterol Sulfate 20 mg 12/29/23 08:35 12/29/23 08:59 Albuterol 0.083% 2.5 Mg/3 Ml [facility] 12/29/23 08:36 20 mg ONCE ONE Administration Albuterol/Ipratropium 9 ml 12/29/23 06:53 12/29/23 07:18 Ipratropium/Albuterol 3 Ml [facility] 12/29/23 06:54 9 ml ONCE ONE Administration Magnesium Sulfate 2 gm in 50 mls @ 50 mls/hr 12/29/23 06:53 12/29/23 07:18 Magnesium Sulfate 2gm/50ml Premix IV 12/29/23 07:52 50 mls/hr ONCE ONE Administration Azithromycin 500 mg/ Sodium 250 mls @ 250 mls/hr 12/29/23 06:56 12/29/23 07:46 Chloride IV 12/29/23 06:57 250 mls/hr ONCE ONE Administration Lactated Ringer's 1,000 mls @ 999 mls/hr 12/29/23 07:57 12/29/23 08:33 Lactated Ringer's 1000 Ml Bag IV 12/29/23 08:57 999 mls/hr .Q1H1M ONE Administration Ceftriaxone Sodium 1 gm/ 50 mls @ 100 mls/hr 12/29/23 07:58 12/29/23 09:33 Sodium Chloride IV 12/29/23 08:27 100 mls/hr ONCE ONE Administration Iopamidol 70 ml 12/29/23 08:23 12/29/23 08:25 Iopamidol-370 (76%);100ml Bottle IV 12/29/23 08:24 70 ml ONCE ONE Administration Methylprednisolone Sodium Succinate 125 mg 12/29/23 06:53 12/29/23 07:18 Methylprednisolone Sod Succ 125mg Vial IV 12/29/23 06:54 125 mg ONCE ONE Administration Sodium Chloride 50 ml 12/29/23 08:23 12/29/23 08:25 0.9 % Sodium Chloride 50 Ml Vial IV 12/29/23 08:24 50 ml ONCE ONE Administration ORDERS Category Date Time Status CT angio chest PE protocol Stat Cat Scan 12/29/23 06:53 Completed CBC w/Auto Diff [Complete Blood Count Auto Diff] Stat Lab 12/29/23 07:05 Results CMP [Comprehensive Metabolic Panel] Stat Lab 12/29/23 07:05 Completed Complete Blood Count Auto Diff AMLAB Lab 12/30/23 06:00 Ordered Comprehensive Metabolic Panel AMLAB Lab 12/30/23 06:00 Ordered Magnesium AMLAB Lab 12/30/23 06:00 Ordered Rapid PCR Covid and Flu A/B Stat Lab 12/29/23 07:15 Completed Trop I [Troponin I] Stat Lab 12/29/23 07:05 Completed Troponin I Q3H Lab 12/29/23 10:11 Received Troponin I Q3H Lab 12/29/23 13:00 Ordered Blood Culture Stat Micro 12/29/23 07:57 Received VBG [Venous Blood Gas] Stat RT 12/29/23 06:53 Completed ECG Data Tracing #1: ECG Narrative: Independently interpreted by me rate 73, rhythm is regular, axis is normal, no ST elevation in anatomical contiguous leads, QTc 457 Tracing #2: ECG Narrative: Independently interpreted by me rate is 81, rhythm is regular, axis is normal, sinus rhythm with incomplete bundle branch block with isolated PVC, QTc 471, no ST elevation in anatomical contiguous leads, nonspecific ST changes in the lateral leads MDM Narrative Medical Decision Narrative: In regardIn summary patient is a 78-year-old male with past medical history described above who presents emergency department for evaluation of shortness of breath and cough in the setting of lung cancer status post chemoradiation currently undergoing surveillance. Patient is hemodynamically stable and nontoxic-appearing upon arrival, afebrile, requiring 2 L nasal cannula to maintain oxygen saturations greater than 90%. Differential diagnosis includes pneumonia, COPD exacerbation secondary to viral infection, pulmonary embolism, atypical ACS, among others. Workup will be conducted with hematologic labs, VBG, CT angio pulmonary embolism protocol, viral swab. Initial interventions include azithromycin, DuoNebs x 3, methylprednisolone, IV magnesium. Transesophageal echocardiogram reviewed from September, normal biventricular systolic function. Patient hematologic labs reviewed by me, leukocytosis of 16.1. Given tachypnea and new oxygen requirement will be treated empirically with ceftriaxone for presumed pneumonia until imaging is obtained. 1 L of lactated Ringer's will be administered. Aggressive sepsis bolus fluids was considered but will be deferred given that patient appears largely euvolemic on my exam. No LO or critical electrolyte abnormality. Troponin 0.05. His COVID test is positive, he has had an interim negative test so he either has serial infections or the interim test was incorrect. CT chest shows spiculated mass right middle lobe that was not present in March which may represent malignancy versus pneumonia, consolidation in the right lower lobe with patchy groundglass opacities in the left lower lobe which may represent metastatic disease or pneumonia. The case was discussed management patient admitted to their service for continued evaluation at this time.
--- NOTE | 2023-12-29 07:10 | PC.NURSE ---
pt placed on 2L NC upon arrival. O2 sat increased to 93%
[2023-12-29 07:16] LABS: VBG Base Excess -3.8 mmol/L (-2.4-2.3); VBG HCO3 22.5 mmol/L (23-30); VBG Oxygen Saturation 59.6 % (50-70); VBG PCO2 45.3 mmol/L (35-51); VBG PH 7.31 mmol/L (7.31-7.41); VBG PO2 35.1 mmol/L (28-40); VBG Total CO2 23.8 mmol/L (23-27)
[2023-12-29 07:17] LABS: Lactate Venous 2.7 mmol/L (0.4-2.0)
[2023-12-29] MEDS: IPRATROPIUM/ALBUTEROL 3 ML NEB 9 ML IH (07:18)
[2023-12-29] MEDS: METHYLPREDNISOLONE SOD SUCC 125MG VIAL 125 MG IV (07:18)
[2023-12-29] MEDS: MAGNESIUM SULFATE IN WATER 2 GM/50 ML PIGGYBACK IV (07:18)
[2023-12-29 07:23] LABS: Basophils # 0.1 K/mm3 (0-0.2); Basophils % 0.3 % (0.1-2.0); Eosinophils # 0.2 K/mm3 (0.0-0.4); Hematocrit 41.2 % (42.0-52.0); Hemoglobin 12.6 g/dL (14.1-18.0); Lymphocytes # 1.2 K/mm3 (0.7-4.5); Lymphocytes % 7.2 % (10-50); Mean Corpuscular HGB Conc 30.7 g/dL (31.8-35.4); Mean Corpuscular Volume 97.7 fl (80-94); Mean Platelet Volume 8.6 fl (7.4-10.4); Monocytes # 0.8 K/mm3 (0.1-1.0); Neutrophils % 86.6 % (37.0-80.0); Platelet Count 242 K/mm3 (142-424); Red Blood Count 4.22 M/mm3 (4.60-6.20); Red Cell Distribution Width 18.9 % (11.5-17.5); White Blood Count 16.1 K/mm3 (4.8-10.8)
[2023-12-29 07:27] LABS: Influenza A, PCR Not Detected (NotDetected); Influenza B, PCR Not Detected (NotDetected)
[2023-12-29 07:30] LABS: Alanine Aminotransferase 37 U/L (12-78); Albumin Level 3.9 g/dl (3.5-5.0); Albumin/Globulin Ratio 1.2 (1.1-1.8); Alkaline Phosphatase 58 U/L (38-126); Anion Gap 7.8 mEq/L (5-15); Aspartate Amino Transferase 39 U/L (17-59); Bilirubin,Total 1.6 mg/dl (0.2-1.3); Blood Urea Nitrogen 17 mg/dl (9-20); Calcium 9.1 mg/dl (8.4-10.2); Carbon Dioxide 26 mmol/L (22.0-30.0); Chloride 106 mmol/L (98-107); Creatinine Clearance Estimated 60 mL/min (50-200); Estimated Glomerular Filt Rate 72 ml/min (>60); GFR (African American) 88 ML/MIN (>60); Globulin 3.2 g/dL (1.3-3.2); Glucose 138 mg/dl (74-100); Potassium 3.8 mmoL/L (3.5-5.1); Sodium 136 mmol/L (136-145); Total Protein,Serum 7.1 g/dl (6.3-8.2)
[2023-12-29 07:42] LABS: Troponin I 0.05 ng/ml (0.00-0.034)
[2023-12-29] MEDS: AZITHROMYCIN 500 MG in 0.9 % SODIUM CHLORIDE 250 ML 250 MG IV (07:46)
[2023-12-29 07:55] LABS: MANUAL DIFFERENTIAL MANUAL DIFFERENTIAL (MANUAL DIFF)
--- NOTE | 2023-12-29 08:12 | PC.NURSE ---
Pt gone to RAD via wheelchair
--- NOTE | 2023-12-29 08:21 | PC.NURSE ---
Pt returned to room from RAD
[2023-12-29 08:23] LABS: Coronavirus 19, PCR Detected (NotDetected)
[2023-12-29] MEDS: 0.9 % SODIUM CHLORIDE 50 ML VIAL IV (08:25)
[2023-12-29] MEDS: IOPAMIDOL-370 (76%);100ML BOTTLE 70 ML IV (08:25)
[2023-12-29] MEDS: SODIUM CHLORIDE 0.9% 10ML SYR (RAD ONLY) 10 ML IV (08:25)
--- NOTE | 2023-12-29 08:26 | ECG_ITS ---
APPROVED REPORT Exam: Resting ECG HR:81 bpm ECG Measurements Heart Rate 81 AXES CA 172 P 82 QRSd 122 QRS 67 QT 433 T 84 QTc 471 Conclusion SINUS RHYTHM WITH OCCASIONAL VENTRICULAR PREMATURE COMPLEXES MODERATE INTRAVENTRICULAR CONDUCTION DELAY [110+ ms QRS DURATION] ST DEPRESSION, CONSIDER SUBENDOCARDIAL INJURY [0.1+ mV ST DEPRESSION] PROLONGED QT INTERVAL ABNORMAL ECG INTERPRETATION BASED ON A DEFAULT AGE OF 40 YEARS Electronically signed by : KELLY BRADFORD, 12/29/2023 16:00:09
[2023-12-29] MEDS: LACTATED RINGERS 1000ML 1,000 ML 999 ML IV (08:33)
[2023-12-29] MEDS: ALBUTEROL 0.083% 2.5 MG/3 ML NEB 20 MG IH (08:59)
[2023-12-29] MEDS: CEFTRIAXONE 1 GM 1 GM in 0.9 % SODIUM CHLORIDE 50 ML IV (09:33)
--- NOTE | 2023-12-29 10:11 | PC.NURSE ---
second trop collected and sent to lab
--- NOTE | 2023-12-29 10:20 | EXP.HP ---
History of Present Illness *Admission Date: 12/29/23 *Reason for visit:: Shortness of breath *History of present illness: 78-year-old male with history of lung cancer and COPD who presented to the ER because of worsening shortness of breath, wheezing, productive cough over the past 24 to 48 hours. States he was positive on a home test for COVID about 3 weeks ago, symptoms improved and he had mainly just mild cold symptoms. tested +2 weeks ago. Over the past few days he started feeling more symptomatic with increased cough and fatigue. Short of breath on exertion. Denies santos chest pain. No fever. No nausea or vomiting. New oxygen requirement on arrival to the ER, necessitating 2 L. Does not wear oxygen at home. Workup in the ER shows leukocytosis, chest imaging with left lower lobe consolidation. Medicine consulted for admission for COVID-pneumonia. On evaluation, patient is receiving a breathing treatment. States he is breathing marginally better but still quite fatigued. at bedside assists with history. [facility] Disclaimer: The information contained in this section may have been updated after the patient was seen, as this information can be updated by other users. Medical History Organizing pneumonia Lung nodule seen on imaging study Primary lung cancer Pre-procedure lab exam Pneumonia Fungal ear infection Impacted cerumen, bilateral Hearing Loss PAD (peripheral artery disease) COPD (chronic obstructive pulmonary disease) CAD (coronary artery disease) Vasculopathy Coagulopathy Type 2 MD (myocardial infarction) Acute blood loss anemia Acute upper gastrointestinal bleeding Nausea vomiting and diarrhea Respiratory failure Sepsis C. difficile colitis Pain around toenail, left foot Incurved toenail Nonhealing nonsurgical wound Hearing loss, bilateral Paroxysmal atrial fibrillation Ischemic colitis Hyperlipidemia Hypertension Cecum perforation PVD (peripheral vascular disease) Non-healing wound Abnormal ankle brachial index (JUSTICE) Claudication Chronic cough Allergic rhinitis COPD exacerbation Lung nodule Smoking greater than 30 pack years Small cell lung cancer Hemoptysis Dyspnea on exertion COPD mixed type Laceration of right ear canal Impacted cerumen H/O: lung cancer Abdominal bruit Cardiac murmur Claudication Smoker Peripheral arterial disease Carotid artery disease Surgical History History of esophagogastroduodenoscopy (EGD) S/P right hemicolectomy S/P femoral-popliteal bypass surgery Status post insertion of iliac artery stent H/O endarterectomy H/O angioplasty History of cardiac cath History of carpal tunnel release Hx of coronary artery bypass graft Family History Other Asthma Social History Smoking Status: Former smoker tobacco type: cigarettes packs per day: 1 alcohol intake: never substance use type: denies use current occupational status: retired Travel in the last 8 weeks: None household members: spouse housing: house marital status: caffeine: No Review of Systems Review of Systems Review of systems (narrative): 14 point review of systems performed, pertinent positives and negatives as per [facility] Meds Home Medications and Allergies Home Medications ?Medication ?Instructions ?Recorded ?Confirmed ?Type albuterol sulfate 90 mcg/actuation 2 puff inhalation QIDP PRN 08/27/17 11/07/23 History aerosol inhaler (Ventolin HFA) Shortness Of Breath folic acid 1 mg tablet 1 mg PO DAILY Supplement 08/27/17 11/07/23 History fluticasone propionate 50 2 spray intranasal DAILY 08/18/22 11/07/23 History mcg/actuation nasal spray,suspension (Flonase Allergy Relief) mirtazapine 15 mg tablet (Remeron) 30 mg PO HS 09/01/22 11/07/23 History multivitamin 1 tab PO DAILY Supplement 09/25/22 11/07/23 History montelukast 10 mg tablet 10 mg PO HS 02/25/23 11/07/23 History isosorbide mononitrate 30 mg 30 mg PO DAILY #90 tabs 04/02/23 11/07/23 Rx tablet,extended release 24 hr metoprolol succinate 50 mg 50 mg PO DAILY #90 tabs 04/02/23 11/07/23 Rx tablet,extended release 24 hr spironolactone 25 mg tablet 25 mg PO DAILY 90 days #90 tabs 05/04/23 11/07/23 Rx oxycodone 10 mg tablet 10 mg PO BIDP PRN pain (scale 05/31/23 11/07/23 History score 7-10) pantoprazole 40 mg tablet,delayed 40 mg PO BID Acid reflux #90 tabs 06/02/23 11/07/23 Rx release fluticasone fur. 100 mcg-umeclid 1 inh inhalation DAILY 06/27/23 11/07/23 History 62.5 mcg-vilant 25 mcg inhalat.powder (Trelegy Ellipta) cetirizine 10 mg capsule (Zyrtec) 10 mg PO DAILY PRN allergic 09/12/23 11/07/23 Rx symptoms #30 caps montelukast 10 mg tablet 10 mg PO DAILY 90 days #90 tabs 09/28/23 11/07/23 Rx atorvastatin 80 mg tablet 80 mg PO HS #30 tabs 10/12/23 11/07/23 Rx prednisone 20 mg tablet See Rx Instructions .Route 11/02/23 11/07/23 Rx .COMPLEX #50 tabs benzonatate 200 mg capsule 200 mg PO TID PRN cough #30 caps 12/04/23 Rx EQ Cough & Chest Congestion DM See Rx Instructions .Route 12/27/23 Rx 20-200 MG/20ML Oral Liquid .COMPLEX #237 mL New Prescriptions to Start Prescriptions: Allergies Allergy/AdvReac Type Severity Reaction Status Date / Time Penicillins Allergy Intermediate I-ITCHING; Verified 11/07/23 09:20 SWELLING Antihistamines - Ethanolamine Allergy Unknown Unknown Verified 11/07/23 09:20 allergy reaction [place] nut Allergy Rash Verified 11/07/23 09:20 doxycycline AdvReac Mild Rash Verified 11/07/23 09:20 Exam Data for Last 24 hours Vital signs and Labs for Last 24 Hours: Temp Pulse Resp BP Pulse Ox O2 Del Method 97.7 F 76 17 132/58 L 96 Nasal Cannula 12/29/23 06:41 12/29/23 09:30 12/29/23 09:30 12/29/23 09:30 12/29/23 09:30 12/29/23 08:30 Laboratory Results - last 24 hr 12/29/23 06:53: VBG pH 7.31, VBG pCO2 45.3, VBG pO2 35.1, VBG HCO3 22.5 L, VBG Total CO2 23.8, VBG O2 Saturation 59.6, VBG Base Excess -3.8 L, VBG Lactic Acid 2.7 H 12/29/23 07:05: WBC 16.1 H, RBC 4.22 L, Hgb 12.6 L, Hct 41.2 L, MCV 97.7 H, MCH 30.0, MCHC 30.7 L, RDW 18.9 H, Plt Count 242, MPV 8.6, Neut % (Auto) 86.6 H, Lymph % (Auto) 7.2 L, [place] % (Auto) 5.0, Eos % (Auto) 1.0, Baso % (Auto) 0.3, Neut # (Auto) 14.0 H, Lymph # (Auto) 1.2, [place] # (Auto) 0.8, Eos # (Auto) 0.2, Baso # (Auto) 0.1, Sodium 136, Potassium 3.8, Chloride 106, Carbon Dioxide 26, Anion Gap 7.8, BUN 17, Creatinine 1.00, Estimated Creat Clear 60, Estimated GFR 72, Est GFR ( Amer) 88, Glucose 138 H, Calcium 9.1, Total Bilirubin 1.6 H, AST 39, ALT 37, Alkaline Phosphatase 58, Troponin I 0.05 H, Total Protein 7.1, Albumin 3.9, Globulin 3.2, Albumin/Globulin Ratio 1.2 12/29/23 07:15: SARS-CoV-2 (PCR) Detected A, Influenza A Untype (PCR) Not detected, Influenza Type B (PCR) Not detected I & O for Last 24 hours: Intake & Output 12/26/23 12/27/23 12/28/23 12/29/23 23:59 23:59 23:59 23:59 Weight 68.039 kg Constitutional Constitutional: no acute distress, average body habitus and cooperative *Routine HEENT Exam Head: Present normocephalic Eye: Present EOMI and PERRL ENT: Present mucous membranes moist *Routine Neck Exam Neck: Present supple; Absent lymphadenopathy *Routine Respiratory Exam Respiratory: Present accessory muscle use, prolonged expiratory phase, wheezes and crackles; Absent respiratory distress or rhonchi *Routine Cardiovascular Exam Cardiovascular: Present RRR and murmur *Routine Abdominal Exam Abdominal: Present soft and normoactive bowel sounds; Absent tenderness *Routine Rectal Exam Rectal:: deferred *Routine Genitalia Exam Genitalia:: deferred *Routine Extremities Exam Extremities: Absent cyanosis, clubbing or edema *Routine Skin Exam Skin: Present intact, dry, pallor and warm; Absent rash *Routine Neurological Exam Neurological: Present alert, oriented X3 and moving all extremities; Absent altered mental status Assessment and Plan *Assessment and plan (1) Pneumonia: Status: Acute Category: Medical Code(s): J18.9 - Pneumonia, unspecified organism (2) COPD (chronic obstructive pulmonary disease): Status: Acute Category: Medical Code(s): J44.9 - Chronic obstructive pulmonary disease, unspecified (3) Elevated troponin: Status: Acute Category: Medical Code(s): R79.89 - Other specified abnormal findings of blood chemistry (4) Lung cancer: Status: Acute Category: Medical Code(s): C34.90 - Malignant neoplasm of unspecified part of unspecified bronchus or lung (5) Organizing pneumonia: Status: Acute Category: Medical Code(s): J84.89 - Other specified interstitial pulmonary diseases (6) CAD (coronary artery disease): Status: Acute Qualifiers: Coronary Disease-Associated Artery/Lesion type: bypass graft [place] vs. transplanted heart: [place] heart Associated angina: without angina Qualified Code(s): I25.810 - Atherosclerosis of coronary artery bypass graft(s) without angina pectoris Category: Medical Code(s): I25.10 - Atherosclerotic heart disease of [place] coronary artery without angina pectoris (7) COPD (chronic obstructive pulmonary disease): Status: Acute Qualifiers: COPD type: unspecified COPD Qualified Code(s): J44.9 - Chronic obstructive pulmonary disease, unspecified Category: Medical Code(s): J44.9 - Chronic obstructive pulmonary disease, unspecified (8) Hypertension: Status: Acute Category: Medical Code(s): I10 - Essential (primary) hypertension Plan Seven 8-year-old male with history of COPD and lung cancer that has been in remission. Follows with oncology at [facility]. Presented with worsening shortness of breath and fatigue. Found to be COVID-positive with concern for pneumonia on chest imaging. Discussed case with ER physician, request admission for antibiotics and further management. I agreed to admit. Received azithromycin and ceftriaxone in the ER. Continue close monitoring. Necessitating inpatient management with PSI/port score of 107/risk class IV. Problems addressed as follows: Pneumonia COVID COPD exacerbation -New oxygen requirement, continue supplemental oxygen as needed for goal sats greater than 90%. Currently on 2 L. - White count of 16, neutrophil predominant 86%. VBG showing normal pH 7.31. Positive for COVID. -Chest CTA per my review with new spiculated mass approximately an inch in diameter. Concern for recurrence of his lung cancer. Right lower lobe with patchy groundglass opacity and consolidation consistent with his previously known organizing pneumonia. New opacity in left lower lobe consistent with pneumonia. -Continue ceftriaxone 1 g daily and azithromycin 500 mg daily. -Sputum and blood cultures pending. -Recommend close follow-up with oncology when stable to discharge home for reevaluation of spiculated lung mass - DuoNeb scheduled every 6 hours -CBC, CMP, magnesium ordered for the morning -Continue Singulair 10 mg daily -Trelegy 100 daily Detectable troponin at 0.04. Denies any chest pain. Stable. No EKG changes. Secondary to stress of acute illness. Hypertension/CAD Continue isosorbide mononitrate 30 mg daily, metoprolol 50 mg daily succinate, , Lipitor 80 mg nightly for hyperlipidemia Full code Pantoprazole 40 for GERD daily Regular diet
--- NOTE | 2023-12-29 10:20 | PC.NURSE ---
I called to request a bed for admission for COPD, PNA, and covid. We will be boarding at this time, no available beds.
[2023-12-29 10:42] LABS: Lymphocytes % 11 % (10-50); Monocytes % 5 % (2-9); Neutrophils % 84 % (42-76); Platelet Estimate Normal; RBC Morphology Normal; Total Cells Counted 100
[2023-12-29 10:48] LABS: Troponin I 0.04 ng/ml (0.00-0.034)
[2023-12-29 11:18] LABS: Reflex Lactic Add Lactic Reflex
[2023-12-29 13:50] LABS: Reflex Lactic (2 hrs) Add Lactic Reflex
--- NOTE | 2023-12-29 14:12 | PC.NURSE ---
Rounded on pt. Gave update on bed status. No needs voiced at this time. Call light remains within reach.
[2023-12-29 14:25] LABS: Troponin I 0.04 ng/ml (0.00-0.034)
--- NOTE | 2023-12-29 15:06 | PC.NURSE ---
report called to [facility]
--- NOTE | 2023-12-29 15:20 | PC.NURSE ---
arrived by w/c from ED
[2023-12-29 15:41] LABS: Lactic Acid Follow up (RFLX 2) 5.6 mmol/L (0.7-2.1)
--- NOTE | 2023-12-29 17:52 | PC.NURSE ---
pt is alert and oriented x4 and is resting comfortably in bed. pt arrived from the ER around 1520 with complaints of sob. pt tested positive for COVID. vss. bowel sounds active and crackles noted in the lung bases. currently on 2L NC and satting >90%. pt ambulates independently. no complaints verbalized this shift. at bedside. call light in reach and bed in low and locked position.
--- NOTE | 2023-12-29 19:05 | PC.NURSE ---
was not given tray
[2023-12-29] MEDS: PANTOPRAZOLE 40MG TABLET 40 MG PO (20:40)
[2023-12-29] MEDS: CEFTRIAXONE SODIUM 1 GM in 0.9 % SODIUM CHLORIDE 50 ML IV (20:40)
[2023-12-29] MEDS: ATORVASTATIN 40MG TABLET 80 MG PO (20:40)
--- NOTE | 2023-12-29 23:51 | EXP.EVENT.NO ---
Patient reported to nurse that he was not able to sleep and that he was having his normal mid back pain.. Stated he takes 10 of oxycodone at home. This is listed in his medical records so I will go ahead and put 10 of oxycodone every 12 as needed for pain
[2023-12-30] VITALS: BP 130/67; PULSE 62; RESP 16; O2SAT 95
[2023-12-30] MEDS: OXYCODONE 10MG EXTENDED RELEASE TAB.ER.12H 10 MG PO (00:17)
[2023-12-30 04:00] VITALS: BMI 23.9
--- NOTE | 2023-12-30 05:17 | PC.NURSE ---
Patient had a decent night. Stayed up and watched the [employer] football game and stood for most of the game. He stood due to his back hurting. After the game he wanted something to help him sleep and for his back pain. The provider came to bedside and ordered his home pain medication. After that the patient was able to sleep. Patient was titrated down to room air and tolerated it well he is sating in the high 90s. No other issues through the night
[2023-12-30 05:35] VITALS: BP 130/59; PULSE 68; RESP 16; TEMP 36.6; O2SAT 92
[2023-12-30] MEDS: AZITHROMYCIN 500 MG in 0.9 % SODIUM CHLORIDE 250 ML 250 MG IV (05:40)
--- NOTE | 2023-12-30 07:33 | EXP.DC.SUM ---
General Admission date:: 12/29/23 Discharge date: 12/30/23 HPI HPI HPI: 78-year-old male with history of lung cancer and COPD who presented to the ER because of worsening shortness of breath, wheezing, productive cough over the past 24 to 48 hours. States he was positive on a home test for COVID about 3 weeks ago, symptoms improved and he had mainly just mild cold symptoms. tested +2 weeks ago. Over the past few days he started feeling more symptomatic with increased cough and fatigue. Short of breath on exertion. Denies santos chest pain. No fever. No nausea or vomiting. New oxygen requirement on arrival to the ER, necessitating 2 L. Does not wear oxygen at home. Workup in the ER shows leukocytosis, chest imaging with left lower lobe consolidation. Medicine consulted for admission for COVID-pneumonia. On evaluation, patient is receiving a breathing treatment. States he is breathing marginally better but still quite fatigued. at bedside assists with history. Hospital Course Hospital Course Hospital Course: 78-year-old male with history of COPD and lung cancer that has been in remission. Follows with oncology at [facility]. Presented with worsening shortness of breath and fatigue. Found to be COVID-positive with concern for pneumonia on chest imaging. Discussed case with ER physician, request admission for antibiotics and further management. I agreed to admit. Received azithromycin and ceftriaxone in the ER. Admitted because of oxygen requirement and risk classification. PSI/port score 107, class IV risk. Responded well to antibiotics and breathing treatments. Able to wean to room air by morning. Stable to discharge home to complete treatment as an outpatient. Problems addressed as follows: Pneumonia COVID COPD exacerbation -New oxygen requirement with elevated white count of 16 and COVID-positive. Chest imaging with CTA showing pulmonary spiculated mass. Concern for recurrence of his lung cancer. Additionally has right lower lobe patchy groundglass opacity where he has previously had organizing pneumonia and consolidation. Also found to have an opacity in left lower lobe consistent with pneumonia. This is an acute finding. Started on ceftriaxone 1 g daily and azithromycin 500 mg daily. Did well with weaning to room air by morning and maintaining sats in the low 90s. Will transition to cefdinir and azithromycin orally to complete empiric course for community-acquired pneumonia. Continue 4 more days of steroids with prednisone 40 mg for COPD component. Close follow-up with primary care for further management. Patient also due for outpatient eval with oncology in the coming weeks. Recommend continued follow-up of mass finding on chest imaging. Patient has been afebrile since admission. Continue Singulair 10 mg daily and Trelegy 100 inhaler. Given improvement in de-escalation of oxygen requirement, stable to discharge home. Detectable troponin at 0.04. Denies any chest pain. Stable. No EKG changes. Secondary to stress of acute illness, would benefit from consideration of outpatient stress test Hypertension/CAD Continue isosorbide mononitrate 30 mg daily, metoprolol 50 mg daily succinate, , Lipitor 80 mg nightly for hyperlipidemia Stable to discharge home. Total time spent on discharge 32 minutes in counseling, documentation, chart review, and direct care with patient. Exam Data for Last 24 hours Vital signs and Labs for Last 24 Hours: Temp Pulse Resp BP Pulse Ox O2 Del Method O2 Flow Rate 97.9 F 68 16 130/59 L 92 L Room Air 2 12/30/23 05:35 12/30/23 05:35 12/30/23 05:35 12/30/23 05:35 12/30/23 05:35 12/30/23 06:52 12/29/23 18:49 Laboratory Results - last 24 hr 12/29/23 07:05: WBC 16.1 H, RBC 4.22 L, Hgb 12.6 L, Hct 41.2 L, MCV 97.7 H, MCH 30.0, MCHC 30.7 L, RDW 18.9 H, Plt Count 242, MPV 8.6, Neut % (Auto) 86.6 H, Lymph % (Auto) 7.2 L, [place] % (Auto) 5.0, Eos % (Auto) 1.0, Baso % (Auto) 0.3, Neut # (Auto) 14.0 H, Lymph # (Auto) 1.2, [place] # (Auto) 0.8, Eos # (Auto) 0.2, Baso # (Auto) 0.1, Total Counted 100, Neutrophils % (Manual) 84 H, Lymphocytes % (Manual) 11, Monocytes % (Manual) 5, Platelet Estimate Normal, RBC Morphology Normal, Sodium 136, Potassium 3.8, Chloride 106, Carbon Dioxide 26, Anion Gap 7.8, BUN 17, Creatinine 1.00, Estimated Creat Clear 60, Estimated GFR 72, Est GFR ( Amer) 88, Glucose 138 H, Calcium 9.1, Total Bilirubin 1.6 H, AST 39, ALT 37, Alkaline Phosphatase 58, Troponin I 0.05 H, Total Protein 7.1, Albumin 3.9, Globulin 3.2, Albumin/Globulin Ratio 1.2 12/29/23 07:15: SARS-CoV-2 (PCR) Detected A, Influenza A Untype (PCR) Not detected, Influenza Type B (PCR) Not detected 12/29/23 10:11: Troponin I 0.04 H 12/29/23 11:45: Lactate 5.0 H 12/29/23 13:01: Troponin I 0.04 H 12/29/23 15:15: Lactate 5.6 H I & O for Last 24 hours: Intake & Output 12/27/23 12/28/23 12/29/23 12/30/23 23:59 23:59 23:59 23:59 Intake Total 240 / 240 Output Total 250 / 350 100 / 100 Balance -10 / -110 -100 / -100 Weight 68.039 kg 67.54 kg Constitutional Constitutional: no acute distress, average body habitus and cooperative *Routine HEENT Exam Head: Present normocephalic Eye: Present EOMI and PERRL ENT: Present mucous membranes moist *Routine Neck Exam Neck: Present supple; Absent lymphadenopathy *Routine Respiratory Exam Respiratory: Present prolonged expiratory phase and crackles (in left base); Absent rhonchi or wheezes *Routine Cardiovascular Exam Cardiovascular: Present RRR *Routine Abdominal Exam Abdominal: Present soft and normoactive bowel sounds; Absent tenderness Comments: Surgical incision with minor redness along edge. No significant drainage. *Routine Rectal Exam Patient deferred: visual exam *Routine Exam Patient deferred: penile exam *Routine Extremities Exam Extremities: Absent cyanosis, clubbing or edema *Routine Skin Exam Skin: Present warm; Absent rash *Routine Neurological Exam Neurological: Present alert, oriented X3 and moving all extremities; Absent altered mental status Results Data Completed and Pending Labs on day of discharge: Labs from last 24 hours 12/29/23 12/29/23 12/29/23 15:15 13:01 11:45 WBC RBC Hgb Hct MCV MCH MCHC RDW Plt Count MPV Neut % (Auto) Lymph % (Auto) [place] % (Auto) Eos % (Auto) Baso % (Auto) Neut # (Auto) Lymph # (Auto) [place] # (Auto) Eos # (Auto) Baso # (Auto) Total Counted Neutrophils % (Manual) Lymphocytes % (Manual) Monocytes % (Manual) Platelet Estimate RBC Morphology Sodium Potassium Chloride Carbon Dioxide Anion Gap BUN Creatinine Estimated Creat Clear Estimated GFR Est GFR ( Amer) Glucose Lactate 5.6 H 5.0 H Calcium Total Bilirubin AST ALT Alkaline Phosphatase Troponin I 0.04 H Total Protein Albumin Globulin Albumin/Globulin Ratio SARS-CoV-2 (PCR) Influenza A Untype (PCR) Influenza Type B (PCR) 12/29/23 12/29/23 12/29/23 10:11 07:15 07:05 WBC 16.1 H RBC 4.22 L Hgb 12.6 L Hct 41.2 L MCV 97.7 H MCH 30.0 MCHC 30.7 L RDW 18.9 H Plt Count 242 MPV 8.6 Neut % (Auto) 86.6 H Lymph % (Auto) 7.2 L [place] % (Auto) 5.0 Eos % (Auto) 1.0 Baso % (Auto) 0.3 Neut # (Auto) 14.0 H Lymph # (Auto) 1.2 [place] # (Auto) 0.8 Eos # (Auto) 0.2 Baso # (Auto) 0.1 Total Counted 100 Neutrophils % (Manual) 84 H Lymphocytes % (Manual) 11 Monocytes % (Manual) 5 Platelet Estimate Normal RBC Morphology Normal Sodium 136 Potassium 3.8 Chloride 106 Carbon Dioxide 26 Anion Gap 7.8 BUN 17 Creatinine 1.00 Estimated Creat Clear 60 Estimated GFR 72 Est GFR ( Amer) 88 Glucose 138 H Lactate Calcium 9.1 Total Bilirubin 1.6 H AST 39 ALT 37 Alkaline Phosphatase 58 Troponin I 0.04 H 0.05 H Total Protein 7.1 Albumin 3.9 Globulin 3.2 Albumin/Globulin Ratio 1.2 SARS-CoV-2 (PCR) Detected A Influenza A Untype (PCR) Not detected Influenza Type B (PCR) Not detected DS: Diagnosis Discharge Diagnosis (1) Pneumonia: Status: Acute Code(s): J18.9 - Pneumonia, unspecified organism (2) COPD (chronic obstructive pulmonary disease): Status: Acute Code(s): J44.9 - Chronic obstructive pulmonary disease, unspecified (3) Elevated troponin: Status: Acute Code(s): R79.89 - Other specified abnormal findings of blood chemistry (4) Lung cancer: Status: Acute Code(s): C34.90 - Malignant neoplasm of unspecified part of unspecified bronchus or lung (5) Organizing pneumonia: Status: Acute Code(s): J84.89 - Other specified interstitial pulmonary diseases (6) CAD (coronary artery disease): Status: Acute Code(s): I25.10 - Atherosclerotic heart disease of [place] coronary artery without angina pectoris Qualifiers: Associated angina: without angina Coronary Disease-Associated Artery/Lesion type: bypass graft [place] vs. transplanted heart: [place] heart Qualified Code(s): I25.810 - Atherosclerosis of coronary artery bypass graft(s) without angina pectoris (7) Hypertension: Status: Acute Code(s): I10 - Essential (primary) hypertension Meds Home Medications and Allergies Home Medications ?Medication ?Instructions ?Recorded ?Confirmed ?Type albuterol sulfate 90 mcg/actuation 2 puff inhalation QIDP PRN 08/27/17 12/29/23 History aerosol inhaler (Ventolin HFA) Shortness Of Breath folic acid 1 mg tablet 1 mg PO DAILY Supplement 08/27/17 12/29/23 History fluticasone propionate 50 2 spray intranasal DAILY 08/18/22 12/29/23 History mcg/actuation nasal spray,suspension (Flonase Allergy Relief) multivitamin 1 tab PO DAILY Supplement 09/25/22 12/29/23 History montelukast 10 mg tablet 10 mg PO HS 02/25/23 12/29/23 History isosorbide mononitrate 30 mg 30 mg PO DAILY #90 tabs 04/02/23 12/29/23 Rx tablet,extended release 24 hr metoprolol succinate 50 mg 50 mg PO DAILY #90 tabs 04/02/23 12/29/23 Rx tablet,extended release 24 hr spironolactone 25 mg tablet 25 mg PO DAILY 90 days #90 tabs 05/04/23 12/29/23 Rx oxycodone 10 mg tablet 10 mg PO BIDP PRN pain (scale 05/31/23 12/29/23 History score 7-10) pantoprazole 40 mg tablet,delayed 40 mg PO BID Acid reflux #90 tabs 06/02/23 12/29/23 Rx release fluticasone fur. 100 mcg-umeclid 1 inh inhalation DAILY 06/27/23 12/29/23 History 62.5 mcg-vilant 25 mcg inhalat.powder (Trelegy Ellipta) cetirizine 10 mg capsule (Zyrtec) 10 mg PO DAILY PRN allergic 09/12/23 12/29/23 Rx symptoms #30 caps montelukast 10 mg tablet 10 mg PO DAILY 90 days #90 tabs 09/28/23 12/29/23 Rx atorvastatin 80 mg tablet 80 mg PO HS #30 tabs 10/12/23 12/29/23 Rx aspirin 81 mg tablet,delayed 81 mg PO DAILY 12/29/23 12/29/23 History release azithromycin 500 mg tablet 500 mg PO DAILY 3 days #3 tabs 12/30/23 Rx cefdinir 300 mg capsule 300 mg PO BID 4 days #8 caps 12/30/23 Rx prednisone 20 mg tablet 40 mg (2 x 20 mg) PO DAILY 3 days 12/30/23 Rx #6 tabs New Prescriptions to Start Prescriptions: Lawrence Joseph cefdinir Lawrence Fitzgerald prednisone Lawrence Fitzgerald Allergies Allergy/AdvReac Type Severity Reaction Status Date / Time Penicillins Allergy Intermediate I-ITCHING; Verified 11/07/23 09:20 SWELLING Antihistamines - Ethanolamine Allergy Unknown Unknown Verified 11/07/23 09:20 allergy reaction [place] nut Allergy Rash Verified 11/07/23 09:20 doxycycline AdvReac Mild Rash Verified 11/07/23 09:20 Discharge Plan Disposition Patient Disposition: Home, Self-Care Condition: Fair Follow up Plan Follow up with: Curtis Montes MD [Primary Care Provider] - Enter time for follow up (please call for appointment) Prescriptions/Medication Reconciliation: New cefdinir 300 mg capsule 300 mg PO BID 4 Days Qty: 8 0RF azithromycin 500 mg tablet 500 mg PO DAILY 3 Days Qty: 3 0RF Rx Instructions: first dose due morning of 12/30 prednisone 20 mg tablet 40 mg PO DAILY 3 Days Qty: 6 0RF Continued folic acid 1 mg tablet 1 mg PO DAILY albuterol sulfate [Ventolin HFA] 90 mcg/actuation HFA aerosol inhaler 2 puff IH QIDP PRN (Reason: Shortness Of Breath) multivitamin Tablet 1 tab PO DAILY isosorbide mononitrate 30 mg tablet extended release 24 hr 30 mg PO DAILY Qty: 90 5RF metoprolol succinate 50 mg tablet extended release 24 hr 50 mg PO DAILY Qty: 90 3RF spironolactone 25 mg tablet 25 mg PO DAILY 90 Days Qty: 90 3RF Zyrtec 10 mg capsule 10 mg PO DAILY PRN (Reason: allergic symptoms) Qty: 30 0RF montelukast 10 mg tablet 10 mg PO DAILY 90 Days Qty: 90 3RF atorvastatin 80 mg tablet 80 mg PO HS Qty: 30 0RF Rx Instructions: Resuming prior dose as patient completed course of itraconazole fluticasone propionate [Flonase Allergy Relief] 50 mcg/actuation spray,suspension 2 spray intranasal DAILY Rx Instructions: administer into each nostril montelukast 10 mg tablet 10 mg PO HS Patient Comments: TAKE 1 TABLET BY MOUTH ONCE DAILY oxycodone 10 mg tablet 10 mg PO BIDP PRN (Reason: pain (scale score 7-10)) pantoprazole 40 mg tablet,delayed release (DR/EC) 40 mg PO BID Qty: 90 1RF Patient Comments: TAKE 1 TABLET BY MOUTH ONCE DAILY Trelegy Ellipta 100-62.5-25 mcg Blister With Device 1 inh INHALATION DAILY aspirin 81 mg Tablet,Delayed Release (Dr/Ec) 81 mg PO DAILY Problem Reconciliation Problems Reviewed?: Yes Patient Discharge Instructions ACTIVITY: Continue current activity DIET: continue same diet Patient Instructions: Pneumonia-Adult, DI for COVID-19 (Suspected or Confirmed ), How to Care for Someone with COVID-19, Preventing the Spread of Coronavirus Discharge Instructions Print Language: German Providers Primary Care Provider: Curtis Montes Provider: Lawrence Fitzgerald Attending Provider: Lawrence Fitzgerald
[2023-12-30 07:56] LABS: Albumin Level 3.5 g/dl (3.5-5.0); Chloride 111 mmol/L (98-107); Potassium 3.9 mmoL/L (3.5-5.1); Sodium 137 mmol/L (136-145)
[2023-12-30 07:59] LABS: Alanine Aminotransferase 26 U/L (12-78); Albumin/Globulin Ratio 1.3 (1.1-1.8); Alkaline Phosphatase 68 U/L (38-126); Anion Gap 5.9 mEq/L (5-15); Aspartate Amino Transferase 34 U/L (17-59); Basophils % 0.1 % (0.1-2.0); Bilirubin,Total 0.6 mg/dl (0.2-1.3); Blood Urea Nitrogen 20 mg/dl (9-20); Calcium 8.8 mg/dl (8.4-10.2); Carbon Dioxide 24 mmol/L (22.0-30.0); Creatinine Clearance Estimated 59 mL/min (50-200); Eosinophils % 0.1 % (0.1-12.0); Estimated Glomerular Filt Rate 94 ml/min (>60); GFR (African American) 113 ML/MIN (>60); Globulin 2.6 g/dL (1.3-3.2); Glucose 124 mg/dl (74-100); Hematocrit 35.1 % (42.0-52.0); Lymphocytes # 0.7 K/mm3 (0.7-4.5); Lymphocytes % 4.9 % (10-50); Magnesium 1.9 mg/dl (1.6-2.3); Mean Corpuscular HGB Conc 31.3 g/dL (31.8-35.4); Mean Corpuscular Hemoglobin 30.5 pg (27.0-31.2); Mean Corpuscular Volume 97.3 fl (80-94); Mean Platelet Volume 8.8 fl (7.4-10.4); Monocytes # 0.8 K/mm3 (0.1-1.0); Monocytes % 5.3 % (1.7-9.3); Neutrophils % 89.6 % (37.0-80.0); Platelet Count 229 K/mm3 (142-424); Red Blood Count 3.61 M/mm3 (4.60-6.20); Total Protein,Serum 6.1 g/dl (6.3-8.2); White Blood Count 14.5 K/mm3 (4.8-10.8)
[2023-12-30 08:00] VITALS: BP 139/96; PULSE 51; RESP 16; TEMP 36.6; O2SAT 95
[2023-12-30 08:10] LABS: MANUAL DIFFERENTIAL MANUAL DIFFERENTIAL (MANUAL DIFF)
[2023-12-30] MEDS: ENOXAPARIN 40MG/0.4ML SYRINGE 40 MG SQ (08:42)
[2023-12-30] MEDS: METOPROLOL SUCCINATE XL 50MG TABLET 50 MG PO (08:42)
[2023-12-30] MEDS: MONTELUKAST SODIUM 10MG TAB 10 MG PO (08:42)
[2023-12-30] MEDS: ISOSORBIDE MONO 30MG TAB.ER.24H 30 MG PO (08:42)
[2023-12-30] MEDS: PANTOPRAZOLE 40MG TABLET 40 MG PO (08:42)
[2023-12-30] MEDS: FLUTICASONE/UMECLIDIN/VILANTER 100/62.5/25MCG INHALER 1 PUFF IH (09:51)
[2023-12-30 11:53] LABS: Lymphocytes % 6 % (10-50); Monocytes % 5 % (2-9); Neutrophils % 89 % (42-76); Platelet Estimate Normal; RBC Morphology Normal; Total Cells Counted 100
--- NOTE | 2023-12-31 15:49 | CARE MANAGER ---
Contacted patient's related to hospital discharge. She states he is doing well. He is taking new medications and has made a follow up appointment with Dr. Montes. Denies any questions or concerns. JYOTI Main
== END 2023-12-30 11:52 | disposition home or self-care (01) ==
LOC: ER 10:21 → 2ND 10:46
PROVIDERS: Admitting Provider Internal Medicine Adolescent Medicine; Emergency Provider Emergency Medicine; PCP Internal Medicine Adolescent Medicine; Visit Provider Internal Medicine Adolescent Medicine
DX: J18.9 Pneumonia, unspecified organism (principal); J44.1 Chronic obstructive pulmonary disease with (acute) exacerbation; R79.89 Other specified abnormal findings of blood chemistry; C34.90 Malignant neoplasm of unspecified part of unspecified bronchus or lung; J84.89 Other specified interstitial pulmonary diseases; I25.810 Atherosclerosis of coronary artery bypass graft(s) without angina pectoris; I10 Essential (primary) hypertension; Z87.891 Personal history of nicotine dependence; Z79.899 Other long term (current) drug therapy; U07.1 COVID-19; I25.10 Atherosclerotic heart disease of native coronary artery without angina pectoris
CPT/HCPCS: 36415; 71275; 80053; 82803; 83605; 83735; 84484; 85007; 85025; 87040; 87636; 93005; 99291; G0378; J0456; J0696; J1650; J2919; J3475; J7050; J7120; J7613; J7620; Q9967

== ENCOUNTER 2024-01-17 13:53 | Outpatient (CLI) | payer MEDICARE, OTHER, SELFPAY ==
--- NOTE | 2024-01-17 13:57 | CA_ITS ---
APPROVED REPORT EXAM: Comprehensive 2D, Doppler, and color-flow Echocardiogram C.O.D. Audit Clerk: Karli Ayers CRT Ht: 5 ft 6 in Wt: 154lbs BSA: 1.79 BP: 117/61 mmHg Indications: COPD, Murmur, Hyperlipidemia, Hypertension/HDD, smoker, CABG 2D Dimensions LA Volume 39.80 mL LA Volume Index 22.23 mL/m2 (M/F) 16-34 M-Mode Dimensions RVDd 2.21 cm (0.9-2.6) LA Diam 3.77 cm (1.9-4.0) LVDd 4.50 cm (3.5-5.7) LVDs 2.57 cm (3.5-5.7) IVSd 1.89 cm (0.6-1.1) PWd 1.46 cm (0.6-1.1) EF (Teich) 74.10% FS 42.90% EDV (Teich) 92.40 mL TAPSE 1.33 (<1.7) ESV (Teich) 23.90 mL LV Diastology E Decel Time 257 (160-240 msec) E/A Ratio 0.9 MED A' 8.50 cm/s LAT A' 9.10 cm/s Aortic Valve RELL Index 0.67 cm2/m2 AoV Peak Moises. 335.0 (50-130 cm/s) AO Peak GR. 45.00 mmHg AO Mean GR. 25.40 (<5 mmHg) AO VTI 75.0 (18-25 cm) RELL (VTI) 1.22 (2.5-4.5 cm2) Mitral Valve MV E Max Moises. 100.0 (40-130 cm/s) MV A Velocity 117.0 (40-130 cm/s) E/A Ratio 0.85 MV PHT 75.0 ms Pulmonary Valve PV Peak Velocity 190.0 (50-150 cm/s) Tricuspid Valve TR P. Velocity 202.00 cm/s RAP Estimate 10.00 mmHg RVSP 26.40 mmHg Left Ventricle The left ventricle is normal size. Left ventricular systolic function is low normal. There is increased LV wall thickness. There is borderline global hypokinesis present. Grade 1 diastolic dysfunction. LVEF is 50%. Right Ventricle Right ventricle is mildly dilated. The right ventricular systolic function is normal. Atria The left atrium is mildly dilated. The right atrium size is normal. There is no Doppler evidence of interatrial shunt. Aortic Valve The aortic valve is moderately thickened. Moderate aortic stenosis is present. RELL by continuity equation is 1.3 cm.. Peak velocity 3.3 m/s. Mean AV gradient 25 mmHg. Max AV gradient 44 mmHg. Trace aortic regurgitation. Mitral Valve Mild mitral annular calcification. The mitral valve leaflets are mildly thickened. No evidence of mitral valve stenosis. Trace mitral regurgitation. Tricuspid Valve Tricuspid valve is grossly normal in structure and function. Trace tricuspid regurgitation. There is insufficient TR jet to estimate RVSP. Pulmonic Valve The pulmonary valve is normal in structure. Mild pulmonic regurgitation. Great Vessels The aortic root is normal in size. The ascending aorta is not well-visualized. IVC is normal in size and collapses >50% with inspiration. Pericardium There is no pericardial effusion. Other Information Study Quality: Fair Conclusion Low normal LV systolic function (LVEF 50%). Mild RV dilation with normal RV function. Mild LA dilation. Moderate (RELL by continuity equation is 1.3 cm.. Peak velocity 3.3 m/s. Mean AV gradient 25 mmHg. Max AV gradient 44 mmHg). Mild PI. Compared to prior RAJENDRA from 09/2023, the severity and the transaortic parameters are overall unchanged. Electronically signed by : Manisha Gonzalez MD 01/21/2024 00:32:00
== END 2024-01-17 23:59 | disposition home or self-care (01) ==
LOC: RT 13:54
PROVIDERS: PCP Internal Medicine Adolescent Medicine; Visit Provider Internal Medicine
DX: I35.0 Nonrheumatic aortic (valve) stenosis (principal)
CPT/HCPCS: 93306

== ENCOUNTER 2024-01-31 14:40 | Outpatient (CLI) | payer MEDICARE, OTHER, SELFPAY ==
[2024-01-31 14:36] LABS: Basophils # 0.1 K/mm3 (0-0.2); Basophils % 0.6 % (0.1-2.0); Eosinophils # 0.2 K/mm3 (0.0-0.4); Hematocrit 38.3 % (42.0-52.0); Hemoglobin 12.6 g/dL (14.1-18.0); Lymphocytes # 1.2 K/mm3 (0.7-4.5); Mean Corpuscular Hemoglobin 31.3 pg (27.0-31.2); Mean Platelet Volume 7.9 fl (7.4-10.4); Monocytes # 0.6 K/mm3 (0.1-1.0); Monocytes % 8.5 % (1.7-9.3); Neutrophils # 5.1 K/mm3 (1.8-7.8); Neutrophils % 70.9 % (37.0-80.0); Platelet Count 237 K/mm3 (142-424); Red Blood Count 4.03 M/mm3 (4.60-6.20); Red Cell Distribution Width 16.9 % (11.5-17.5); White Blood Count 7.2 K/mm3 (4.8-10.8)
[2024-01-31 14:39] LABS: Albumin Level 4.1 g/dl (3.5-5.0); Chloride 107 mmol/L (98-107)
[2024-01-31 14:40] LABS: Sodium 141 mmol/L (136-145)
[2024-01-31 14:42] LABS: Alanine Aminotransferase 21 U/L (12-78); Alkaline Phosphatase 63 U/L (38-126); Aspartate Amino Transferase 26 U/L (17-59); Bilirubin,Direct 0.2 mg/dl (0.0-0.4); Bilirubin,Indirect 0.4 mg/dL (0.0-0.9); Bilirubin,Total 0.6 mg/dl (0.2-1.3); Bilirubin,Unconjugated 0.4 mg/dL (0.0-1.1); Blood Urea Nitrogen 12 mg/dl (9-20); Carbon Dioxide 29 mmol/L (22.0-30.0); Estimated Glomerular Filt Rate 94 ml/min (>60); GFR (African American) 113 ML/MIN (>60)
[2024-01-31 14:43] LABS: Calcium 9.4 mg/dl (8.4-10.2); Cholesterol 98 mg/dl (140-200); Glucose 118 mg/dl (74-100); HDL Cholesterol 37 mg/dl (40-60); Magnesium 1.5 mg/dl (1.6-2.3); Triglycerides 143 mg/dl (30-150); VLDL Cholesterol 29 mg/dL (0-40)
[2024-01-31 14:53] LABS: Chol/HDL Ratio 2.6 (1-3.5)
[2024-01-31 15:02] LABS: Direct LDL Cholesterol 34.89 mg/dL (100-129)
[2024-01-31 15:12] LABS: Free T4 (Free Thyroxine) 1.18 ng/dl (0.78-2.19)
== END 2024-01-31 14:47 | disposition home or self-care (01) ==
LOC: INF 14:42
PROVIDERS: PCP Internal Medicine Adolescent Medicine; Visit Provider Internal Medicine
DX: D64.9 Anemia, unspecified (principal); I25.810 Atherosclerosis of coronary artery bypass graft(s) without angina pectoris; J44.9 Chronic obstructive pulmonary disease, unspecified; I73.9 Peripheral vascular disease, unspecified; E78.5 Hyperlipidemia, unspecified; I10 Essential (primary) hypertension; C34.90 Malignant neoplasm of unspecified part of unspecified bronchus or lung; R53.83 Other fatigue
CPT/HCPCS: 36415; 80048; 80061; 80076; 83735; 84439; 84443; 85025

== ENCOUNTER 2024-02-07 10:13 | Outpatient (CLI) | payer MEDICARE, OTHER, SELFPAY ==
--- NOTE | 2024-02-07 10:23 | PC.NURSE ---
1023-collected labs via venipuncture stick in right hand with butterfly needle.
[2024-02-07 10:38] LABS: Chloride 107 mmol/L (98-107); Potassium 3.9 mmoL/L (3.5-5.1); Sodium 142 mmol/L (136-145)
[2024-02-07 10:41] LABS: Anion Gap 13.9 mEq/L (5-15); Blood Urea Nitrogen 14 mg/dl (9-20); Calcium 9.2 mg/dl (8.4-10.2); Carbon Dioxide 25 mmol/L (22.0-30.0); Estimated Glomerular Filt Rate 82 ml/min (>60); GFR (African American) 99 ML/MIN (>60); Glucose 220 mg/dl (74-100)
== END 2024-02-07 10:24 | disposition home or self-care (01) ==
LOC: INF 10:15
PROVIDERS: PCP Internal Medicine Adolescent Medicine; Visit Provider Internal Medicine
DX: I25.810 Atherosclerosis of coronary artery bypass graft(s) without angina pectoris (principal); E78.5 Hyperlipidemia, unspecified; I10 Essential (primary) hypertension; R53.83 Other fatigue
CPT/HCPCS: 36415; 80048

== ENCOUNTER 2024-02-12 10:05 | Outpatient (CLI) | payer MEDICARE, OTHER, SELFPAY ==
[2024-02-12 10:21] LABS: Basophils % 0.4 % (0.1-2.0); Eosinophils # 0.4 K/mm3 (0.0-0.4); Eosinophils % 4.4 % (0.1-12.0); Hematocrit 40.5 % (42.0-52.0); Hemoglobin 12.1 g/dL (14.1-18.0); Lymphocytes # 1.1 K/mm3 (0.7-4.5); Lymphocytes % 12.1 % (10-50); Mean Corpuscular HGB Conc 29.8 g/dL (31.8-35.4); Mean Corpuscular Volume 100.7 fl (80-94); Mean Platelet Volume 7.2 fl (7.4-10.4); Monocytes # 0.6 K/mm3 (0.1-1.0); Monocytes % 6.8 % (1.7-9.3); Neutrophils # 6.8 K/mm3 (1.8-7.8); Neutrophils % 76.2 % (37.0-80.0); Platelet Count 274 K/mm3 (142-424); Red Blood Count 4.02 M/mm3 (4.60-6.20); Red Cell Distribution Width 16.6 % (11.5-17.5)
[2024-02-12 10:26] LABS: Albumin Level 3.9 g/dl (3.5-5.0); Chloride 103 mmol/L (98-107); Potassium 4.5 mmoL/L (3.5-5.1); Sodium 139 mmol/L (136-145)
[2024-02-12 10:29] LABS: Alanine Aminotransferase 20 U/L (12-78); Albumin/Globulin Ratio 1.3 (1.1-1.8); Alkaline Phosphatase 68 U/L (38-126); Anion Gap 13.5 mEq/L (5-15); Aspartate Amino Transferase 28 U/L (17-59); Bilirubin,Total 0.7 mg/dl (0.2-1.3); Blood Urea Nitrogen 13 mg/dl (9-20); Calcium 9.1 mg/dl (8.4-10.2); Carbon Dioxide 27 mmol/L (22.0-30.0); Estimated Glomerular Filt Rate 82 ml/min (>60); GFR (African American) 99 ML/MIN (>60); Glucose 167 mg/dl (74-100); Total Protein,Serum 6.9 g/dl (6.3-8.2)
--- NOTE | 2024-02-12 10:57 | PC.NURSE ---
[id number]-[id number].[id number];rn collected labs via venipuncture stick with butterfly needle; to call pt with results.
== END 2024-02-12 10:11 | disposition home or self-care (01) ==
LOC: LAB 10:06
PROVIDERS: PCP Internal Medicine Adolescent Medicine; Visit Provider Internal Medicine Medical Oncology
DX: C34.90 Malignant neoplasm of unspecified part of unspecified bronchus or lung (principal)
CPT/HCPCS: 36415; 80053; 85025

== ENCOUNTER 2024-02-25 09:45 | Outpatient (CLI) | payer MEDICARE, OTHER, SELFPAY ==
[2024-02-25 10:31] VITALS: BMI 24.7
--- NOTE | 2024-02-25 10:40 | XR_ITS ---
FINAL REPORT CLINICAL HISTORY: PICC line placement COMPARISON: 10/29/2023 FINDINGS: A single portable view of the chest was obtained. The heart size is enlarged. The pulmonary vascularity is within normal limits. Prior median sternotomy. A left-sided PICC line is present with the tip in the upper SVC. Right basilar opacities likely represent atelectasis or pneumonia. The bony thorax is intact. IMPRESSION: Left-sided PICC line tip in the upper SVC. Right basilar opacities, likely atelectasis or pneumonia. Reviewed, Interpreted and Dictated by Karri Roldan III, MD Transcribed by Nichelle Pearson Authenticated and [facility]
== END 2024-02-25 23:59 | disposition home or self-care (01) ==
LOC: INF 09:48
PROVIDERS: PCP Internal Medicine Adolescent Medicine; Visit Provider Internal Medicine Medical Oncology
DX: Z95.0 Presence of cardiac pacemaker (principal)
CPT/HCPCS: 36410; 36569; 71045; C1751

== ENCOUNTER 2024-02-26 09:36 | Outpatient (CLI) | payer MEDICARE, OTHER, SELFPAY ==
[2024-02-26] VITALS (7 sets, daily range): BP systolic 137–169; BP diastolic 59–67; PULSE 51–63; RESP 18; O2SAT 98; BMI 26.9
[2024-02-26 10:08] LABS: Basophils # 0.1 K/mm3 (0-0.2); Basophils % 0.7 % (0.1-2.0); Eosinophils # 0.6 K/mm3 (0.0-0.4); Eosinophils % 6.1 % (0.1-12.0); Hematocrit 39.7 % (42.0-52.0); Lymphocytes # 1.2 K/mm3 (0.7-4.5); Lymphocytes % 13.1 % (10-50); Mean Corpuscular HGB Conc 32.7 g/dL (31.8-35.4); Mean Corpuscular Hemoglobin 31.7 pg (27.0-31.2); Mean Corpuscular Volume 96.8 fl (80-94); Mean Platelet Volume 7.6 fl (7.4-10.4); Monocytes # 0.6 K/mm3 (0.1-1.0); Neutrophils # 6.8 K/mm3 (1.8-7.8); Platelet Count 204 K/mm3 (142-424); Red Cell Distribution Width 16.4 % (11.5-17.5); White Blood Count 9.2 K/mm3 (4.8-10.8)
[2024-02-26 10:22] LABS: Alanine Aminotransferase 24 U/L (12-78); Albumin Level 3.8 g/dl (3.5-5.0); Albumin/Globulin Ratio 1.5 (1.1-1.8); Alkaline Phosphatase 64 U/L (38-126); Anion Gap 12.1 mEq/L (5-15); Aspartate Amino Transferase 31 U/L (17-59); Bilirubin,Total 0.6 mg/dl (0.2-1.3); Blood Urea Nitrogen 11 mg/dl (9-20); Calcium 9.2 mg/dl (8.4-10.2); Carbon Dioxide 25 mmol/L (22.0-30.0); Chloride 106 mmol/L (98-107); Creatinine Clearance Estimated 66 mL/min (50-200); Estimated Glomerular Filt Rate 94 ml/min (>60); GFR (African American) 113 ML/MIN (>60); Globulin 2.5 g/dL (1.3-3.2); Glucose 130 mg/dl (74-100); Potassium 4.1 mmoL/L (3.5-5.1); Sodium 139 mmol/L (136-145); Total Protein,Serum 6.3 g/dl (6.3-8.2)
[2024-02-26] MEDS: APREPITANT 125MG/80MG TRIFOLD PACK 1 PACKET PO (10:30)
[2024-02-26] MEDS: ONDANSETRON 4MG ODT 16 MG (10:30)
[2024-02-26] MEDS: DEXAMETHASONE 4MG TABLET 12 MG (10:30)
[2024-02-26] MEDS: SODIUM CHLORIDE 0.9% 50ML BAG 50 ML IV (11:11)
[2024-02-26] MEDS: CARBOPLATIN IV (12:09)
[2024-02-26] MEDS: SODIUM CHLORIDE 0.9% IV (12:09)
== END 2024-02-26 12:50 | disposition home or self-care (01) ==
LOC: INF 09:38
PROVIDERS: PCP Internal Medicine Adolescent Medicine; Visit Provider Internal Medicine Medical Oncology
DX: Z51.11 Encounter for antineoplastic chemotherapy (principal); Z79.630 Long term (current) use of alkylating agent; C34.12 Malignant neoplasm of upper lobe, left bronchus or lung
CPT/HCPCS: 80053; 85025; 96413; 96415; 96417; J8501; J8540; J9045; J9181; Q0162

== ENCOUNTER 2024-02-27 09:29 | Outpatient (CLI) | payer MEDICARE, OTHER, SELFPAY ==
[2024-02-27] MEDS: DEXAMETHASONE 4MG TABLET 12 MG PO (09:50)
[2024-02-27] MEDS: SODIUM CHLORIDE 0.9% 50ML BAG 50 ML IV (09:50)
[2024-02-27 10:20] VITALS: BP 149/65; PULSE 80; RESP 17; O2SAT 98
[2024-02-27 10:35] VITALS: BP 147/70; PULSE 75; RESP 17
[2024-02-27 10:50] VITALS: BP 155/66; PULSE 77; RESP 16
[2024-02-27 11:05] VITALS: BP 137/58; PULSE 73; RESP 16
[2024-02-27 11:20] VITALS: BP 134/55; PULSE 74; RESP 16
[2024-02-27 11:30] VITALS: BP 135/64; PULSE 73; RESP 17
== END 2024-02-27 11:45 | disposition home or self-care (01) ==
LOC: INF 09:31
PROVIDERS: PCP Internal Medicine Adolescent Medicine; Visit Provider Internal Medicine Medical Oncology
DX: Z51.11 Encounter for antineoplastic chemotherapy (principal); C34.90 Malignant neoplasm of unspecified part of unspecified bronchus or lung; Z79.634 Long term (current) use of topoisomerase inhibitor
CPT/HCPCS: 96413; J8540; J9181

== ENCOUNTER 2024-02-28 09:40 | Outpatient (CLI) | payer MEDICARE, OTHER, SELFPAY ==
[2024-02-28] MEDS: SODIUM CHLORIDE 0.9% 50ML BAG 50 ML IV (10:01)
[2024-02-28] MEDS: DEXAMETHASONE 4MG TABLET 12 MG PO (10:01)
[2024-02-28 10:25] VITALS: BP 125/62; PULSE 69; RESP 17; O2SAT 98
[2024-02-28 10:40] VITALS: BP 122/60; PULSE 65; RESP 16
[2024-02-28 10:55] VITALS: BP 133/53; PULSE 64; RESP 16
[2024-02-28 11:10] VITALS: BP 128/53; PULSE 70; RESP 16
[2024-02-28 11:25] VITALS: BP 139/67; PULSE 67; RESP 16
[2024-02-28 11:35] VITALS: BP 144/59; PULSE 68; RESP 16
== END 2024-02-28 11:50 | disposition home or self-care (01) ==
LOC: INF 09:42
PROVIDERS: PCP Internal Medicine Adolescent Medicine; Visit Provider Internal Medicine Medical Oncology
DX: Z51.11 Encounter for antineoplastic chemotherapy (principal); C34.90 Malignant neoplasm of unspecified part of unspecified bronchus or lung; Z79.899 Other long term (current) drug therapy
CPT/HCPCS: 96413; J8540; J9181

== ENCOUNTER 2024-03-03 09:17 | Outpatient (CLI) | payer MEDICARE, OTHER, SELFPAY | END 2024-03-03 09:40 | disposition home or self-care (01) | LOC: INF 09:19 | PROVIDERS: PCP Internal Medicine Adolescent Medicine; Visit Provider Internal Medicine Medical Oncology | DX: Z45.2 Encounter for adjustment and management of vascular access device (principal) | CPT/HCPCS: 96523 ==

== ENCOUNTER 2024-03-10 14:21 | Outpatient (CLI) | payer MEDICARE, OTHER, SELFPAY | END 2024-03-10 14:28 | disposition home or self-care (01) | LOC: INF 14:21 | PROVIDERS: PCP Internal Medicine Adolescent Medicine; Visit Provider Internal Medicine Medical Oncology | DX: C34.90 Malignant neoplasm of unspecified part of unspecified bronchus or lung (principal) | CPT/HCPCS: 96523 ==

== ENCOUNTER 2024-03-11 10:00 | Observation (INO) | payer MEDICARE, OTHER, SELFPAY ==
[2024-03-11] VITALS (12 sets, daily range): BP systolic 86–161; BP diastolic 51–76; PULSE 39–96; RESP 13–20; TEMP 36.7–36.9; O2SAT 96–100; BMI 26.7; BMI 25.3
--- NOTE | 2024-03-11 10:10 | ECG_ITS ---
APPROVED REPORT Exam: Resting ECG HR:123 bpm ECG Measurements Heart Rate 123 AXES QRSd 128 QRS 73 QT 311 T 76 QTc 384 Conclusion Atrial fibrillation with rapid ventricular response ST depression without reciprocal change Electronically signed by : EARNEST RENDON, 03/11/2024 14:14:33
--- NOTE | 2024-03-11 10:41 | XR_ITS ---
FINAL REPORT CLINICAL HISTORY: palpitations COMPARISON: 02/25/2024 FINDINGS: A single PA view of the chest was obtained. The patient is status post median sternotomy. The heart is normal in size. A left PICC line is unchanged. There is fullness in the superior left hilum that is more prominent than on the previous exam. Please see the chest CT report from the same day. There are areas of probable atelectasis in the right lower lobe. There is no effusion or pneumothorax. IMPRESSION: Interval increase in the left suprahilar opacity. Areas of probable atelectasis in the right base. Please see chest CT report from today. Reviewed, Interpreted and Dictated by Yas Coe MD Transcribed by Lou Child Authenticated and [facility]
[2024-03-11 10:51] LABS: Basophils % 1.1 % (0.1-2.0); Eosinophils % 2.6 % (0.1-12.0); Hematocrit 30.7 % (42.0-52.0); Hemoglobin 10.5 g/dL (14.1-18.0); Lymphocytes # 0.4 K/mm3 (0.7-4.5); Lymphocytes % 46.8 % (10-50); Mean Corpuscular HGB Conc 34.2 g/dL (31.8-35.4); Mean Corpuscular Hemoglobin 31.4 pg (27.0-31.2); Mean Platelet Volume 8.3 fl (7.4-10.4); Monocytes # 0.1 K/mm3 (0.1-1.0); Monocytes % 13.8 % (1.7-9.3); Neutrophils # 0.3 K/mm3 (1.8-7.8); Neutrophils % 35.6 % (37.0-80.0); Red Blood Count 3.33 M/mm3 (4.60-6.20); Red Cell Distribution Width 16.1 % (11.5-17.5)
--- NOTE | 2024-03-11 10:55 | PC.NURSE ---
blood cultures and new VBG drawn, respiratory notified.
--- NOTE | 2024-03-11 10:58 | ECG_ITS ---
APPROVED REPORT Exam: Resting ECG HR:83 bpm ECG Measurements Heart Rate 83 AXES WY 153 P 87 QRSd 111 QRS 67 QT 373 T 75 QTc 413 Conclusion Sinus rhythm No acute ischemic change Electronically signed by : EARNEST RENDON, 03/11/2024 14:14:51
[2024-03-11 11:00] LABS: Activated Partial Thrombo Time 29.3 seconds (22.8-30.6)
[2024-03-11 11:02] LABS: Lactate Venous 1.9 mmol/L (0.4-2.0); VBG Base Excess -1.5 mmol/L (-2.4-2.3); VBG HCO3 22.9 mmol/L (23-30); VBG Oxygen Saturation 87.6 % (50-70); VBG PCO2 35.3 mmol/L (35-51); VBG PH 7.43 mmol/L (7.31-7.41); VBG PO2 56.2 mmol/L (28-40); VBG Total CO2 23.9 mmol/L (23-27)
[2024-03-11 11:03] LABS: Platelet Count 49 K/mm3 (142-424); White Blood Count 0.8 K/mm3 (4.8-10.8)
[2024-03-11 11:04] LABS: MANUAL DIFFERENTIAL MANUAL DIFFERENTIAL (MANUAL DIFF)
[2024-03-11 11:05] LABS: Alanine Aminotransferase 30 U/L (12-78); Albumin Level 3.6 g/dl (3.5-5.0); Albumin/Globulin Ratio 1.3 (1.1-1.8); Alkaline Phosphatase 85 U/L (38-126); Anion Gap 14.1 mEq/L (5-15); Aspartate Amino Transferase 29 U/L (17-59); Bilirubin,Total 0.7 mg/dl (0.2-1.3); Blood Urea Nitrogen 19 mg/dl (9-20); Carbon Dioxide 23 mmol/L (22.0-30.0); Chloride 102 mmol/L (98-107); Creatinine Clearance Estimated 62 mL/min (50-200); Estimated Glomerular Filt Rate 72 ml/min (>60); GFR (African American) 88 ML/MIN (>60); Globulin 2.8 g/dL (1.3-3.2); Glucose 96 mg/dl (74-100); Magnesium 1.4 mg/dl (1.6-2.3); Potassium 4.1 mmoL/L (3.5-5.1); Sodium 135 mmol/L (136-145); Total Protein,Serum 6.4 g/dl (6.3-8.2)
[2024-03-11 11:10] LABS: INR 1.03 (0.9-1.1); Prothrombin Time 11.5 seconds (10.1-12.5)
--- NOTE | 2024-03-11 11:10 | PC.NURSE ---
Dr. Lewis notified of critical WBC 0.8 & placement.
[2024-03-11 11:14] LABS: NT Pro Brain Natriuretic Pep. 1180 pg/mL (0-450)
--- NOTE | 2024-03-11 11:15 | ED_ITS ---
Discharge Plan Disposition Chief Complaint: Dizziness Prescriptions Prescriptions: No Action metoprolol succinate 25 mg tablet extended release 24 hr 25 mg PO DAILY Qty: 30 3RF potassium chloride 20 mEq tablet extended release 20 meq PO DAILY Qty: 30 2RF brimonidine 0.2 % drops Eye-Both Patient Comments: INSTILL 1 DROP INTO AFFECTED EYE TWICE DAILY folic acid 1 mg tablet 1 mg PO DAILY albuterol sulfate [Ventolin HFA] 90 mcg/actuation HFA aerosol inhaler 2 puff IH QIDP PRN (Reason: Shortness Of Breath) multivitamin Tablet 1 tab PO DAILY isosorbide mononitrate 30 mg tablet extended release 24 hr 30 mg PO DAILY Qty: 90 5RF spironolactone 25 mg tablet 25 mg PO DAILY 90 Days Qty: 90 3RF atorvastatin 80 mg tablet 80 mg PO HS Qty: 30 0RF Rx Instructions: Resuming prior dose as patient completed course of itraconazole prochlorperazine maleate [Compazine] 10 mg tablet 10 mg PO Q6H PRN (Reason: nausea and vomiting) Qty: 30 2RF ondansetron 8 mg tablet,disintegrating 8 mg PO Q8H PRN (Reason: nausea and vomiting) Qty: 30 2RF diphenoxylate-atropine [Lomotil] 2.5-0.025 mg tablet 1 tab PO TID PRN (Reason: diarrhea) Qty: 30 1RF fluticasone propionate [Flonase Allergy Relief] 50 mcg/actuation spray,suspension 2 spray intranasal DAILY Rx Instructions: administer into each nostril montelukast 10 mg tablet 10 mg PO HS Patient Comments: TAKE 1 TABLET BY MOUTH ONCE DAILY oxycodone 10 mg tablet 10 mg PO BIDP PRN (Reason: pain (scale score 7-10)) pantoprazole 40 mg tablet,delayed release (DR/EC) 40 mg PO BID Qty: 90 1RF Patient Comments: TAKE 1 TABLET BY MOUTH ONCE DAILY Trelegy Ellipta 100-62.5-25 mcg Blister With Device 1 inh INHALATION DAILY aspirin 81 mg Tablet,Delayed Release (Dr/Ec) 81 mg PO DAILY Referrals Follow up/Referrals: Curtis Montes MD [Primary Care Provider] - See instructions Print Language Print Language: Citizen Of The [place] Discharge ED Provider: Pedro Lewis General Adult HPI General Chief complaint: Dizziness Stated complaint: dizzy spells Time Seen by Provider: 03/11/24 10:16 Mode of Arrival: Ambulatory Source of Information: Patient and Spouse Limitations: No Limitations Description of Symptoms (Recalled from ER Triage Doc. by RN): pt got up this morning and went to radiation at [facility] for small cell lung cancer since 2021 and had an episode of dizziness and kind of zoned out per History of Present Illness HPI narrative: Please note that above description of symptoms, in this electronic medical record under categorization of recalled from ER triage doctor by RN are reflective of an initial nursing assessment, however, is not reflective of my full history and physical exam that was personally taken and clarified. Consequentially, this preceding description of symptoms, which may include the patient's categorized chief complaint in the EMR, do not reflect my personal clinical impression, and the ultimate description of history of present illness and patient stated complaints should be deferred to this section of the note. Unless stated otherwise or congruent with this section of the note, additional signs, symptoms, or incongruence should be interpreted as inaccurate with my clinical impression. Related Data Home Medications ?Medication ?Instructions ?Recorded ?Confirmed albuterol sulfate 90 mcg/actuation 2 puff inhalation QIDP PRN 08/27/17 02/12/24 aerosol inhaler (Ventolin HFA) Shortness Of Breath folic acid 1 mg tablet 1 mg PO DAILY Supplement 08/27/17 02/12/24 fluticasone propionate 50 2 spray intranasal DAILY 08/18/22 02/12/24 mcg/actuation nasal spray,suspension (Flonase Allergy Relief) multivitamin 1 tab PO DAILY Supplement 09/25/22 02/12/24 montelukast 10 mg tablet 10 mg PO HS 02/25/23 02/12/24 oxycodone 10 mg tablet 10 mg PO BIDP PRN pain (scale 05/31/23 02/12/24 score 7-10) fluticasone fur. 100 mcg-umeclid 1 inh inhalation DAILY 06/27/23 02/12/24 62.5 mcg-vilant 25 mcg inhalat.powder (Trelegy Ellipta) aspirin 81 mg tablet,delayed 81 mg PO DAILY 12/29/23 02/12/24 release brimonidine 0.2 % eye drops drp Eye-Both 02/12/24 02/12/24 Previous Rx's ?Medication ?Instructions ?Recorded isosorbide mononitrate 30 mg 30 mg PO DAILY #90 tabs 04/02/23 tablet,extended release 24 hr spironolactone 25 mg tablet 25 mg PO DAILY 90 days #90 tabs 05/04/23 pantoprazole 40 mg tablet,delayed 40 mg PO BID Acid reflux #90 tabs 06/02/23 release metoprolol succinate 25 mg 25 mg PO DAILY #30 tabs 01/31/24 tablet,extended release 24 hr potassium chloride 20 mEq 20 meq PO DAILY #30 tabs 01/31/24 tablet,extended release atorvastatin 80 mg tablet 80 mg PO HS #30 tabs 02/05/24 ondansetron 8 mg disintegrating 8 mg PO Q8H PRN nausea and 02/27/24 tablet vomiting #30 tabs prochlorperazine maleate 10 mg 10 mg PO Q6H PRN nausea and 02/27/24 tablet (Compazine) vomiting #30 tabs diphenoxylate-atropine 2.5 1 tab PO TID PRN diarrhea #30 tabs 03/03/24 mg-0.025 mg tablet (Lomotil) Allergies Allergy/AdvReac Type Severity Reaction Status Date / Time Penicillins Allergy Intermediate I-ITCHING; Verified 02/12/24 09:27 SWELLING Antihistamines - Ethanolamine Allergy Unknown Unknown Verified 02/12/24 09:27 allergy reaction [place] nut Allergy Rash Verified 02/12/24 09:27 doxycycline AdvReac Mild Rash Verified 02/12/24 09:27 [facility] Disclaimer: The information contained in this section may have been updated after the patient was seen, as this information can be updated by other users. Medical History Fatigue Aortic stenosis Organizing pneumonia Lung nodule seen on imaging study Primary lung cancer Pre-procedure lab exam Pneumonia Fungal ear infection Impacted cerumen, bilateral Hearing Loss PAD (peripheral artery disease) COPD (chronic obstructive pulmonary disease) CAD (coronary artery disease) Vasculopathy Coagulopathy Type 2 SD (myocardial infarction) Acute blood loss anemia Acute upper gastrointestinal bleeding Punctate focus of bleeding in mid/upper gastric body. Status post epi/clip on 06/01/23. Repeat EGD secondary to recurrent bleeding on July 03, 2023 revealed no sign of active hemorrhage. Nausea vomiting and diarrhea Respiratory failure Sepsis C. difficile colitis Pain around toenail, left foot Incurved toenail Nonhealing nonsurgical wound Hearing loss, bilateral Paroxysmal atrial fibrillation Ischemic colitis Hyperlipidemia Hypertension Cecum perforation PVD (peripheral vascular disease) Non-healing wound Abnormal ankle brachial index (JUSTICE) Claudication Chronic cough Allergic rhinitis COPD exacerbation Lung nodule Smoking greater than 30 pack years Small cell lung cancer Hemoptysis Dyspnea on exertion COPD mixed type Laceration of right ear canal Impacted cerumen H/O: lung cancer Abdominal bruit Cardiac murmur Claudication Smoker Peripheral arterial disease Carotid artery disease Surgical History History of esophagogastroduodenoscopy (EGD) S/P right hemicolectomy S/P femoral-popliteal bypass surgery Status post insertion of iliac artery stent H/O endarterectomy H/O angioplasty History of cardiac cath History of carpal tunnel release Hx of coronary artery bypass graft Family History Other Asthma Social History Smoking Status: Never smoker alcohol intake: never substance use type: denies use current occupational status: retired household members: spouse housing: house marital status: caffeine: No Other Medical History Have you received the Flu Vaccine for this season: No Have you received the Pneumonia Vaccine: Yes ROS Obtained: Yes All systems reviewed & no additional complaints except as documented Physical Exam General General appearance: alert Head Head exam: atraumatic and normocephalic Eye Eye exam: Present normal appearance, PERRL and EOMI Neck Neck exam: Present normal inspection, full ROM and trachea midline Respiratory Respiratory exam: Absent respiratory distress, wheezes, stridor, accessory muscle use or prolonged expiratory phase Cardiovascular Cardiovascular exam: Present other (Pulses equal symmetric in upper and lower extremities) Abdominal Exam Abdominal exam: Present soft; Absent distention, tenderness or pulsatile mass Extremities Exam Extremities exam: Absent edema Neurological Exam Neurological exam: Present alert, oriented X3 and CN II-XII intact; Absent motor sensory deficit Skin Skin exam: Present warm and dry; Absent diaphoresis or erythema Medical Decision Making Medical Records Medical records reviewed: Yes I reviewed the patient's medical records. Screening: Per USPSTF and CDC recommendations, given the prevalence of disease in our region, it is our hospital?s policy to screen for HIV and viral Hepatitis for all patients aged 18 and over and those with ongoing risk factors. Ricardo Inquiry Pt receiving controlled substance: No Ricardo was queried for this patient: No Vital Signs: 03/11/24 10:03 03/11/24 10:08 03/11/24 10:31 Temperature 98.2 F Temperature Source Oral Pulse Rate 66 39 L Pulse Rate [Right Radial] 75 Respiratory Rate 20 16 Blood Pressure 161/63 H 86/51 L Blood Pressure [Right Arm] 131/63 Blood Pressure Mean [Right Arm] 85 02 Sat by Pulse Oximetry 99 100 99 Oxygen Delivery Method Room Air 03/11/24 11:00 Temperature Temperature Source Pulse Rate 76 Pulse Rate [Right Radial] Respiratory Rate 13 Blood Pressure 92/59 L Blood Pressure [Right Arm] Blood Pressure Mean [Right Arm] 02 Sat by Pulse Oximetry 96 Oxygen Delivery Method Lab Data Lab Results 03/11/24 10:17: WBC 0.8 L*, RBC 3.33 L, Hgb 10.5 L, Hct 30.7 L, MCV 92.0, MCH 31.4 H, MCHC 34.2, RDW 16.1, Plt Count 49 L*, MPV 8.3, Neut % (Auto) 35.6 L, Lymph % (Auto) 46.8, [place] % (Auto) 13.8 H, Eos % (Auto) 2.6, Baso % (Auto) 1.1, Neut # (Auto) 0.3 L*, Lymph # (Auto) 0.4 L, [place] # (Auto) 0.1, Eos # (Auto) 0.0, Baso # (Auto) 0.0, Total Counted 25, Neutrophils % (Manual) 36 L, Lymphocytes % (Manual) 32, Atypical Lymphs % 4.0, Monocytes % (Manual) 28 H, Platelet Estimate Marked decrease, RBC Morphology Normal, Ovalocytes 1+, PT 11.5, INR 1.03, APTT 29.3, Sodium 135 L, Potassium 4.1, Chloride 102, Carbon Dioxide 23, Anion Gap 14.1, BUN 19, Creatinine 1.00, Estimated Creat Clear 62, Estimated GFR 72, Est GFR ( Amer) 88, Glucose 96, Calcium 9.0, Magnesium 1.4 L, Total Bilirubin 0.7, AST 29, ALT 30, Alkaline Phosphatase 85, Troponin I 0.12 H, NT-Pro-B Natriuret Pep 1180 H, Total Protein 6.4, Albumin 3.6, Globulin 2.8, Albumin/Globulin Ratio 1.3, TSH 0.98, Thyroxine (T4) 7.2 03/11/24 10:55: VBG pH 7.43 H, VBG pCO2 35.3, VBG pO2 56.2 H, VBG HCO3 22.9 L, VBG Total CO2 23.9, VBG O2 Saturation 87.6 H, VBG Base Excess -1.5, VBG Lactic Acid 1.9, Lactate 1.3 03/11/24 10:17 03/11/24 10:17 Orders (Tests/Meds): ED MEDICATIONS Generic Name Dose Route Start Last Admin Trade Name Freq PRN Reason Stop Dose Admin Vancomycin/PEG/NADA/Lysine/Water 1.5 gm in 300 mls @ 150 mls/hr 03/11/24 12:15 03/11/24 12:12 Vancomycin 1.5gm/300ml (Peg) Premix IV 03/11/24 14:14 150 mls/hr ONCE ONE Administration Discontinued Medications Generic Name Dose Route Start Last Admin Trade Name Freq PRN Reason Stop Dose Admin Aspirin 324 mg 03/11/24 11:15 03/11/24 11:30 Aspirin 81mg Chewable Tablet PO 03/11/24 11:16 Not Given ONCE ONE Magnesium Sulfate 2 gm in 50 mls @ 50 mls/hr 03/11/24 11:20 03/11/24 11:26 Magnesium Sulfate 2gm/50ml Premix IV 03/11/24 12:19 50 mls/hr ONCE ONE Administration Cefepime HCl 2 gm/ Sodium 100 mls @ 200 mls/hr 03/11/24 12:03 03/11/24 12:12 Chloride IV 03/11/24 12:32 200 mls/hr ONCE ONE Administration Iopamidol 80 ml 03/11/24 12:24 03/11/24 12:27 Iopamidol-370 (76%);100ml Bottle IV 03/11/24 12:25 80 ml ONCE ONE Administration Magnesium Oxide 800 mg 03/11/24 11:21 03/11/24 11:25 Magnesium Oxide 400mg Tablet PO 03/11/24 11:22 800 mg ONCE ONE Administration Metronidazole 500 mg 03/11/24 12:03 03/11/24 12:12 Metronidazole 500 Mg Tablet PO 03/11/24 12:04 500 mg ONCE ONE Administration Miscellaneous 1 each 03/11/24 12:15 Vancomycin Consult Request NOTAPPLIC 04/10/24 12:14 CONSULT [facility] Sodium Chloride 50 ml 03/11/24 12:24 03/11/24 12:27 0.9 % Sodium Chloride 50 Ml Vial IV 03/11/24 12:25 50 ml ONCE ONE Administration Sodium Chloride 10 ml 03/11/24 12:24 03/11/24 12:27 Sodium Chloride 0.9% 10ml Syr (Rad Only) IV 03/11/24 12:25 10 ml ONCE ONE Administration ORDERS Category Date Time Status CT angio chest - dissection Stat Cat Scan 03/11/24 12:05 Taken XR chest portable Stat Exams 03/11/24 10:41 Taken Complete Blood Count Auto Diff Stat Lab 03/11/24 10:17 Completed Comprehensive Metabolic Panel Stat Lab 03/11/24 10:17 Completed Lactic Acid Stat Lab 03/11/24 10:55 Completed Magnesium Stat Lab 03/11/24 10:17 Completed NT Pro Brain Natriuretic Pep. Stat Lab 03/11/24 10:17 Completed PT INR [Prothrombin Time INR] Stat Lab 03/11/24 10:17 Completed PTT [Activated Partial Thrombo Time] Stat Lab 03/11/24 10:17 Completed T4 (Thyroxine) Stat Lab 03/11/24 10:17 Completed TSH [Thyroid Stimulating Hormone] Stat Lab 03/11/24 10:17 Completed Troponin I Q3H Lab 03/11/24 13:45 Ordered Troponin I Q3H Lab 03/11/24 16:45 Ordered Troponin I Stat Lab 03/11/24 10:17 Completed Blood Culture Stat Micro 03/11/24 10:55 Received Venous Blood Gas Stat RT 03/11/24 10:55 Completed HEART Score History (anamnesis): Slightly suspicious ECG: Non-specific disturbance Age: >65 years Risk factors: 3 or more risk factors Troponin: > 3x normal limit HEART Score: 7 Medical Decision Narrative: 78-year-old male history of hypertension, hyperlipidemia, COPD not on home oxygen, SD status post stenting and CABG, paroxysmal A-fib not on anticoagulation, small cell lung cancer currently undergoing chemo and radiation presenting with lightheadedness. Patient states that he had radiation treatment today, 03/11 around 8 AM. Had a dizzy episode right afterward. Has had 2 since episodes without syncope. No neurologic deficits. States that during these episodes he is disoriented. Family corroborating story. No other associated symptoms. History was obtained via conversation with patient and family. On arrival, patient hemodynamically stable, alert, [oriented x4, ][appropriate, ]GCS [15], moving all extremities spontaneously, pupils equal and reactive to light. Full physical exam performed and significant for neurologically intact with NIHSS 0. Cardiac exam with right upper sternal border murmur, left upper sternal border murmur, apical murmur. Normal S1-S2. No lower extremity edema. Pulses equal and symmetric in upper and lower extremities. Lungs are clear to auscultation anterior and posterior bilaterally. Differential includes metabolic abnormality, endocrinologic abnormality, dehydration, arrhythmia/cardiac, medication induced, intoxication, withdrawal, among others. Patient placed on continuous cardiac monitoring and continuous pulse ox with initial blood pressure 131/63, heart rate 75, saturation 99% on room air. [Independent interpretation of EKG shows] A-fib with RVR around [address] or T wave changes concerning for obvious ischemia. QRS 128, QTc 384. Normal axis. Intermittent PVCs. Patient was given 324 mg aspirin for symptomatic management[ and correction of underlying abnormalities]. Spontaneously converted normal sinus rhythm around 11 AM. Repeat EKG sinus rhythm 83 beats a minute with AK 153, QRS 111, QTc 413. Still no acute ischemic. Normal axis. Workup independently interpreted and significant for pancytopenia with white blood cell count 800, absolute neutrophil count 300, lymphocytes 400. Platelets low at 49,000. Coags normal. Patient's VBG nonactionable. Lactate negative. Chemistry nonactionable with normal kidney function. Magnesium low at 1.4, this was repleted IV and p.o. Initial troponin 0.12 and BNP 1180, likely type II NSTEMI secondary to rate related ischemia. Given patient's thrombocytopenia, but already on antiplatelet agents, aspirin was considered, but not deemed necessary or appropriate at this time. On independent interpretation of imaging, patient has new streaking in his right lower lobe concerning for scarring versus developing pneumonia. Was given vancomycin, cefepime, Flagyl for this. See radiology read for full review of final results. Heart score 7. On reevaluation, patient resting comfortably. I talked to hospital medicine and had interactive discussion. Hospitalist wanted to obtain CT chest to evaluate underlying cancer. Given patient was intermittently having pain between his shoulder blades in the setting of elevated troponin and murmurs, CT angiogram to evaluate the aorta was performed. [Tissue perfusion reassessment performed within 3 hours, patient mentating, following commands, good capillary refill and hemodynamically stable.] [Consultants] [obs] Given patient presentation, workup, history, this most likely represents []. Less likely []. [SDH] Incubator Operator disclaimer Much of this encounter note is an electronic automatic lump making machine tender spoken language to printed text. Electronic automatic lump making machine tender of the spoken language may permit errors. Although I have reviewed the note, some errors may still exist. Critical Care Critical Care Time Critical Care Time: No
[2024-03-11 11:17] LABS: Lactic Acid 1.3 mmol/L (0.7-2.1)
[2024-03-11 11:18] LABS: Troponin I 0.12 ng/ml (0.00-0.034)
[2024-03-11 11:23] LABS: T4 (Thyroxine) 7.2 ug/dl (5.53-11.0)
[2024-03-11] MEDS: MAGNESIUM OXIDE 400MG TABLET 800 MG PO (11:25)
[2024-03-11] MEDS: MAGNESIUM SULFATE IN WATER 2 GM/50 ML PIGGYBACK IV (11:26)
[2024-03-11 11:28] LABS: Lymphocytes % 32 % (10-50); Monocytes % 28 % (2-9); Neutrophils % 36 % (42-76); Ovalocytes 1+; Platelet Estimate Marked Decrease; RBC Morphology Normal; Total Cells Counted 25
[2024-03-11 11:36] LABS: Thyroid Stimulating Hormone 0.98 uIU/mL (0.465-4.68)
--- NOTE | 2024-03-11 12:05 | CT_ITS ---
FINAL REPORT TECHNIQUE: Axial imaging of the chest is obtained after the administration of contrast. 3-D MIP reformatted images were also obtained and reviewed per PE protocol. This study was performed with techniques to keep radiation doses as low as reasonably achievable (ALARA). Individualized dose reduction techniques using automated exposure control or adjustment of mA and/or kV according to the patient's size were employed. This study was performed with techniques to keep radiation doses as low as reasonably achievable (ALARA). Individualized dose reduction techniques using automated exposure control or adjustment of mA and/or kV according to the patient's size were employed. CLINICAL HISTORY: back pain, presyncope COMPARISON: 12/29/2023 FINDINGS: The pulmonary arteries are well filled. There is no evidence of pulmonary embolus. There is no aortic dissection or intimal flap. There is no axillary lymphadenopathy. There is slight interval improvement in left hilar adenopathy since the prior CT. No right hilar adenopathy is noted. There is no pleural or pericardial effusion. The previously noted lower lobe nodular groundglass opacities and reticulonodular opacities have improved since the prior CT. The right middle lobe spiculated nodule, which previously measured 2.9 x 2.4 cm in size, on today's exam measures 1.4 x 1.2 cm in size. However, new groundglass and airspace disease is present in the medial aspect of the superior left lower lobe. The posterior left upper lobe opacity is stable. There is a small subpleural nodule in the right upper lobe best seen on image #33, which is new since the prior exam. There is new right lower lobe atelectasis. Gallstones are once again noted in the upper abdomen. There are multiple low-density hepatic and renal lesions once again identified, favor cysts. Limited evaluation of the upper abdomen is without acute abnormality. No acute osseous abnormality. IMPRESSION: No evidence of pulmonary embolism or aortic dissection. The previous lower lobe nodular ground glass opacities and reticulonodular opacities have improved since the prior exam. New ground glass and airspace opacities are noted in the medial aspect of the superior segment of the left lower lobe, which may represent a new infiltrate or pneumonia. The spiculated nodule in the right middle lobe has improved since the prior exam, was previously 29 x 24 mm in size, and on today's exam measures 14 x 12 mm in size. Reviewed, Interpreted and Dictated by Yas Coe MD Transcribed by Loreto Gonzalez Authenticated and [facility]
[2024-03-11] MEDS: CEFEPIME HCL 2 GM in 0.9 % SODIUM CHLORIDE 100 ML IV ×2 (12:12→22:57)
[2024-03-11] MEDS: VANCOMYCIN/WATER FOR INJ (PEG) 1.5 GM/300 ML PIGGYBACK IV (12:12)
[2024-03-11] MEDS: metroNIDAZOLE 500 MG TABLET PO (12:12)
[2024-03-11] MEDS: 0.9 % SODIUM CHLORIDE 50 ML VIAL IV (12:27)
[2024-03-11] MEDS: IOPAMIDOL-370 (76%);100ML BOTTLE 80 ML IV (12:27)
[2024-03-11] MEDS: SODIUM CHLORIDE 0.9% 10ML SYR (RAD ONLY) 10 ML IV (12:27)
--- NOTE | 2024-03-11 13:01 | MR_ITS ---
FINAL REPORT TECHNIQUE: Multiplanar and multisequence imaging of the brain was obtained without contrast. CLINICAL HISTORY: confusion in setting of lung cancer COMPARISON: 09/03/2021 FINDINGS: There is no mass effect or midline shift. There are moderate to severe periventricular white matter changes which are worse than previous, could be treatment related. There is no evidence of hydrocephalus. The cerebellum and brainstem have an unremarkable appearance. There are no areas of restricted diffusion on diffusion weighted images to suggest acute infarct. There is fluid in the bilateral mastoid air cells consistent with mastoiditis. IMPRESSION: No restricted diffusion to suggest acute ischemia. Progressive extensive periventricular white matter changes, may be treatment related especially if patient received whole brain radiation. Clinical correlation is recommended. Bilateral mastoiditis. Reviewed, Interpreted and Dictated by Yas Coe MD Transcribed by Bernadette Nolasco Authenticated and [facility]
--- NOTE | 2024-03-11 13:16 | PC.NURSE ---
rounded on patient, gave a cup of ice and a holger lorie
--- NOTE | 2024-03-11 15:13 | EXP.CARD.CON ---
History of Present Illness History of Present Illness Consult date: 03/11/24 Requesting physician: Bridger Campuzano Consult reason: known to you Chief complaint: weakness History of present illness: 78-year-old white male well-established patient of our office with a history of extensive cardiac history including CAD status post CABG and PCI, PAD status post balloon angioplasty bilateral lower extremity, CEA, ischemic colitis status post hemicolectomy with severe SMA stenosis, HFrEF with EF 40%, moderate aortic stenosis, paroxysmal atrial fibrillation, COPD, small cell lung cancer, recent GI bleeding requiring multiple transfusions. Patient seen in our office last month and was stable from a cardiac standpoint with recent echo showing normal EF and moderate . Recently saw hematology and was found to have possible progression of his small cell lung cancer and has started another round of chemo and radiation. He was at his radiation appointment today and felt a bit weak. Upon returning home had severe weakness and near syncope while standing at the kitchen counter. He presented to the emergency room was found to be in A-fib RVR, 140s. Workup also revealed severe thrombocytopenia at 46 and severe leukopenia at 0.[address] chest showing left lower lobe pneumonia. Patient was admitted and we are consulted for elevated troponin and proBNP. Patient's troponin was 0.12, proBNP 1100. I am seeing patient on telemetry floor and he is currently stable and without complaints. Denies angina near syncope or shortness of breath. He and his do admit he has been coughing and fatigued over the past week. He received a flu shot yesterday. [facility] Disclaimer: The information contained in this section may have been updated after the patient was seen, as this information can be updated by other users. Medical History Fatigue Aortic stenosis Organizing pneumonia Lung nodule seen on imaging study Primary lung cancer Pre-procedure lab exam Pneumonia Fungal ear infection Impacted cerumen, bilateral Hearing Loss PAD (peripheral artery disease) COPD (chronic obstructive pulmonary disease) CAD (coronary artery disease) Vasculopathy Coagulopathy Type 2 CA (myocardial infarction) Acute blood loss anemia Acute upper gastrointestinal bleeding Nausea vomiting and diarrhea Respiratory failure Sepsis C. difficile colitis Pain around toenail, left foot Incurved toenail Nonhealing nonsurgical wound Hearing loss, bilateral Paroxysmal atrial fibrillation Ischemic colitis Hyperlipidemia Hypertension Cecum perforation PVD (peripheral vascular disease) Non-healing wound Abnormal ankle brachial index (JUSTICE) Claudication Chronic cough Allergic rhinitis COPD exacerbation Lung nodule Smoking greater than 30 pack years Small cell lung cancer Hemoptysis Dyspnea on exertion COPD mixed type Laceration of right ear canal Impacted cerumen H/O: lung cancer Abdominal bruit Cardiac murmur Claudication Smoker Peripheral arterial disease Carotid artery disease Surgical History History of esophagogastroduodenoscopy (EGD) S/P right hemicolectomy S/P femoral-popliteal bypass surgery Status post insertion of iliac artery stent H/O endarterectomy H/O angioplasty History of cardiac cath History of carpal tunnel release Hx of coronary artery bypass graft Family History Other Asthma Social History Smoking Status: Never smoker alcohol intake: never substance use type: denies use current occupational status: retired household members: spouse housing: house marital status: caffeine: No Review of Systems Constitutional Constitutional: Denies fatigue and Reports weakness Eyes Eyes: Denies loss of vision ENT Ears, Nose, Mouth, and Throat: Denies hearing loss and Denies vertigo *Cardiovascular Cardiovascular: Denies chest pain, Denies dyspnea and Denies syncope *Respiratory Respiratory: Denies cough and Denies dyspnea *Gastrointestinal Gastrointestinal: Denies change in stool character, Denies nausea and Denies vomiting *Genitourinary Genitourinary: Denies difficulty urinating *Musculoskeletal Musculoskeletal: Denies muscle weakness Integumentary/Breasts Skin/Breast: Denies changing lesions *Neurologic Neurologic: Denies loss of vision, Denies syncope, Denies vertigo and Reports weakness Endocrine Endocrine: Denies fatigue Exam Data for Last 24 hours Vital signs and Labs for Last 24 Hours: Temp Pulse Resp BP Pulse Ox O2 Del Method 98.1 F 73 16 135/61 100 Room Air 03/11/24 13:34 03/11/24 13:34 03/11/24 13:34 03/11/24 13:34 03/11/24 13:34 03/11/24 14:56 Laboratory Results - last 24 hr 03/11/24 10:17: WBC 0.8 L*, RBC 3.33 L, Hgb 10.5 L, Hct 30.7 L, MCV 92.0, MCH 31.4 H, MCHC 34.2, RDW 16.1, Plt Count 49 L*, MPV 8.3, Neut % (Auto) 35.6 L, Lymph % (Auto) 46.8, Lucas % (Auto) 13.8 H, Eos % (Auto) 2.6, Baso % (Auto) 1.1, Neut # (Auto) 0.3 L*, Lymph # (Auto) 0.4 L, Lucas # (Auto) 0.1, Eos # (Auto) 0.0, Baso # (Auto) 0.0, Total Counted 25, Neutrophils % (Manual) 36 L, Lymphocytes % (Manual) 32, Atypical Lymphs % 4.0, Monocytes % (Manual) 28 H, Platelet Estimate Marked decrease, RBC Morphology Normal, Ovalocytes 1+, PT 11.5, INR 1.03, APTT 29.3, Sodium 135 L, Potassium 4.1, Chloride 102, Carbon Dioxide 23, Anion Gap 14.1, BUN 19, Creatinine 1.00, Estimated Creat Clear 62, Estimated GFR 72, Est GFR ( Amer) 88, Glucose 96, Calcium 9.0, Magnesium 1.4 L, Total Bilirubin 0.7, AST 29, ALT 30, Alkaline Phosphatase 85, Troponin I 0.12 H, NT-Pro-B Natriuret Pep 1180 H, Total Protein 6.4, Albumin 3.6, Globulin 2.8, Albumin/Globulin Ratio 1.3, TSH 0.98, Thyroxine (T4) 7.2 03/11/24 10:55: VBG pH 7.43 H, VBG pCO2 35.3, VBG pO2 56.2 H, VBG HCO3 22.9 L, VBG Total CO2 23.9, VBG O2 Saturation 87.6 H, VBG Base Excess -1.5, VBG Lactic Acid 1.9, Lactate 1.3 I & O for Last 24 hours: Intake & Output 03/08/24 03/09/24 03/10/24 03/11/24 23:59 23:59 23:59 23:59 Weight 148 lb 4.8 oz Constitutional Constitutional: no acute distress and cooperative Comments: Hard of hearing *Routine HEENT Exam Eye: Present PERRL *Routine Respiratory Exam Respiratory: Present CTA bilaterally; Absent accessory muscle use, wheezes or crackles *Routine Cardiovascular Exam Cardiovascular: Present RRR, Normal S1 and Normal S2; Absent murmur, gallop or rubs *Routine Abdominal Exam Abdominal: Present soft; Absent tenderness Comments: Incisional hernia mid abdomen *Routine Extremities Exam Extremities: Present pulses intact; Absent cyanosis or edema *Routine Skin Exam Skin: Present intact; Absent erythema or wounds *Routine Neurological Exam Neurological: Present alert and oriented X3 Routine Psychiatric Exam Psychiatric: Present cooperative Meds Home Medications and Allergies Home Medications ?Medication ?Instructions ?Recorded ?Confirmed ?Type albuterol sulfate 90 mcg/actuation 2 puff inhalation QIDP PRN 08/27/17 02/12/24 History aerosol inhaler (Ventolin HFA) Shortness Of Breath folic acid 1 mg tablet 1 mg PO DAILY Supplement 08/27/17 02/12/24 History fluticasone propionate 50 2 spray intranasal DAILY 08/18/22 02/12/24 History mcg/actuation nasal spray,suspension (Flonase Allergy Relief) multivitamin 1 tab PO DAILY Supplement 09/25/22 02/12/24 History montelukast 10 mg tablet 10 mg PO HS 02/25/23 02/12/24 History isosorbide mononitrate 30 mg 30 mg PO DAILY #90 tabs 04/02/23 02/12/24 Rx tablet,extended release 24 hr spironolactone 25 mg tablet 25 mg PO DAILY 90 days #90 tabs 05/04/23 02/12/24 Rx oxycodone 10 mg tablet 10 mg PO BIDP PRN pain (scale 05/31/23 02/12/24 History score 7-10) pantoprazole 40 mg tablet,delayed 40 mg PO BID Acid reflux #90 tabs 06/02/23 02/12/24 Rx release fluticasone fur. 100 mcg-umeclid 1 inh inhalation DAILY 06/27/23 02/12/24 History 62.5 mcg-vilant 25 mcg inhalat.powder (Trelegy Ellipta) aspirin 81 mg tablet,delayed 81 mg PO DAILY 12/29/23 02/12/24 History release metoprolol succinate 25 mg 25 mg PO DAILY #30 tabs 01/31/24 02/12/24 Rx tablet,extended release 24 hr potassium chloride 20 mEq 20 meq PO DAILY #30 tabs 01/31/24 02/12/24 Rx tablet,extended release atorvastatin 80 mg tablet 80 mg PO HS #30 tabs 02/05/24 02/12/24 Rx brimonidine 0.2 % eye drops drp Eye-Both 02/12/24 02/12/24 History ondansetron 8 mg disintegrating 8 mg PO Q8H PRN nausea and 02/27/24 Rx tablet vomiting #30 tabs prochlorperazine maleate 10 mg 10 mg PO Q6H PRN nausea and 02/27/24 Rx tablet (Compazine) vomiting #30 tabs diphenoxylate-atropine 2.5 1 tab PO TID PRN diarrhea #30 tabs 03/03/24 Rx mg-0.025 mg tablet (Lomotil) New Prescriptions to Start Prescriptions: Allergies Allergy/AdvReac Type Severity Reaction Status Date / Time Penicillins Allergy Intermediate I-ITCHING; Verified 02/12/24 09:27 SWELLING Antihistamines - Ethanolamine Allergy Unknown Unknown Verified 02/12/24 09:27 allergy reaction Alvin nut Allergy Rash Verified 02/12/24 09:27 doxycycline AdvReac Mild Rash Verified 02/12/24 09:27 Assessment and Plan *Assessment and plan (1) Atrial fibrillation with rapid ventricular response: Status: Acute Category: Medical Code(s): I48.91 - Unspecified atrial fibrillation (2) Aortic stenosis: Status: Acute Category: Medical Code(s): I35.0 - Nonrheumatic aortic (valve) stenosis (3) Organizing pneumonia: Status: Acute Category: Medical Code(s): J84.89 - Other specified interstitial pulmonary diseases (4) Primary lung cancer: Status: Acute Category: Medical Code(s): C34.90 - Malignant neoplasm of unspecified part of unspecified bronchus or lung (5) CAD (coronary artery disease): Status: Acute Qualifiers: Coronary Disease-Associated Artery/Lesion type: bypass graft [place] vs. transplanted heart: [place] heart Associated angina: without angina Qualified Code(s): I25.810 - Atherosclerosis of coronary artery bypass graft(s) without angina pectoris Category: Medical Code(s): I25.10 - Atherosclerotic heart disease of [place] coronary artery without angina pectoris (6) PAD (peripheral artery disease): Status: Acute Category: Medical Code(s): I73.9 - Peripheral vascular disease, unspecified Plan A-fib RVR - known dx - acute exacerbation in stetting of illness, chemo/radiation - spont conversion to SR - cont home dose metoprolol - no OAC for now due to severe thrombocytopenia CAD, NSTEMI - known hx s/p prior CABG and PCI - mild trop elevation here in setting of A-fib RVR, appears to be demand ischemia - pt denies angina, no ischemic changes on EKG - check limited ECHO for wall motion changes and change in EF - DAPT on hold and not a candidate for LHC due to severe thrombocytopenia - cont BB, statin, nitrates PAD - Bilateral Carotid Dz, BLE Dz, Severe SMA dz - no signs of acute ischemia - cont statin Moderate - per ECHO 01/2024 - medical management Hx of recurrent GI bleeding and severe anemia - discussed watchman as outpatient which pt declined - he states now is is interested in referral PNA - LLL per CT scan, WBC 0.8 and Neur 0.3 Small Cell Lung Cancer - currently on Chemo/Rad CV stable. Will check limited ECHO but I do not anticipate any procedural intervention this admisison. Hold all DAPT/OAC until cleared by Heme/Onc.
--- NOTE | 2024-03-11 15:21 | ECG_ITS ---
APPROVED REPORT Exam: Resting ECG HR:71 bpm ECG Measurements Heart Rate 71 AXES RI 173 P 78 QRSd 113 QRS 51 QT 419 T 55 QTc 441 Conclusion SINUS RHYTHM WITH OCCASIONAL VENTRICULAR PREMATURE COMPLEXES POSSIBLE INFERIOR MYOCARDIAL INFARCTION , PROBABLY OLD [30 ms Q WAVE IN II/aVF] BORDERLINE ECG UNCONFIRMED REPORT Electronically signed by : Curtis Montes MD 03/11/2024 20:55:51
--- NOTE | 2024-03-11 15:25 | CA_ITS ---
APPROVED REPORT EXAM: Limited 2D Echocardiogram Beam Dyer Operator: Chastity Contreras RT(R) Ht: 5 ft 6 in Wt: 148lbs BSA: 1.76 BP: 142/82 mmHg Indications: Ordered as a limited to assess EF and wall motion. Patient declined contrast agent at this time. 2D Dimensions EF AP4 41.80 % GL Strain -0.1 % M-Mode Dimensions RVDd 2.14 cm (0.9-2.6) LVDd 6.57 cm (3.5-5.7) LVDs 5.78 cm (3.5-5.7) IVSd 0.64 cm (0.6-1.1) PWd 0.68 cm (0.6-1.1) EF (Teich) 25.40% FS 12.00% EDV (Teich) 221.30 mL ESV (Teich) 165.20 mL Other Information Study Quality: Technically Difficult Conclusion This is a limited TTE to evaluate for LV systolic function and wall motion. Limited windows were obtained. Technically difficult study. The left ventricle is normal in size. There is increased LV wall thickness. The septum is asynchronous. There is low-normal global systolic function. No obvious wall motion abnormalities are noted. LVEF is 50%. Compared to prior study from 01/17/2024, the LV systolic function overall appears unchanged. Electronically signed by : Manisha Gonzalez MD 03/14/2024 14:21:46
--- NOTE | 2024-03-11 16:57 | EXP.HP ---
History of Present Illness *Admission Date: 03/11/24 *Reason for visit:: Dizziness, confusion *History of present illness: Lawrence Tsang is a 78-year-old male with a medical history significant for left lung small cell lung carcinoma (currently undergoing chemo/radiation therapy at [facility] and [facility] respectively), organizing pneumonia, history of GI bleeds, paroxysmal A-fib, PAD, CAD s/p CABG, HFrEF 40%, hypertension, aortic stenosis,, ischemic colitis s/p hemicolectomy, GERD who presents with altered mental status, dizziness after radiation therapy today. Patient has had radiation therapy for the past 2 days, but today he stated he felt lightheaded soon after therapy was complete. There was most prominent when standing, and he did not think anything of it until it happened again when he got home. However, this time he states he had generalized weakness and that his was unable to get his attention for several seconds as he was spacing out. He was recently diagnosed with left ear infection and is currently on cefdinir and waiting on topical ear antibiotics prescription from his PCP. He denies fever/chill, chest pain, shortness of breath, abdominal pain, urinary symptoms. He does state he has chronic cough that has not changed, and is not productive in nature. Workup in the ED significant for WBC 0.8, Hgb 10.5, platelets 49, magnesium 1.4, troponin 0.12, BNP 1180. CXR revealed left suprahilar opacity, CTA suggests new infiltrates in the superior segment of the left lower lobe as acute findings. Was discussed with the ED provider and decision was made to admit patient for IV antibiotics for pneumonia in the setting of significant leukopenia from chemo/radiation therapy for SCLC. [facility] Disclaimer: The information contained in this section may have been updated after the patient was seen, as this information can be updated by other users. Medical History (Updated 03/11/24 @ 17:25 by Bridger Campuzano MD) Small cell lung cancer Fatigue Aortic stenosis Organizing pneumonia Lung nodule seen on imaging study Primary lung cancer Pre-procedure lab exam Pneumonia Fungal ear infection Impacted cerumen, bilateral Hearing Loss PAD (peripheral artery disease) COPD (chronic obstructive pulmonary disease) CAD (coronary artery disease) Vasculopathy Coagulopathy Type 2 WA (myocardial infarction) Acute blood loss anemia Acute upper gastrointestinal bleeding Nausea vomiting and diarrhea Respiratory failure Sepsis C. difficile colitis Pain around toenail, left foot Incurved toenail Nonhealing nonsurgical wound Hearing loss, bilateral Paroxysmal atrial fibrillation Ischemic colitis Hyperlipidemia Hypertension Cecum perforation PVD (peripheral vascular disease) Non-healing wound Abnormal ankle brachial index (JUSTICE) Claudication Chronic cough Allergic rhinitis COPD exacerbation Lung nodule Smoking greater than 30 pack years Hemoptysis Dyspnea on exertion COPD mixed type Laceration of right ear canal Impacted cerumen H/O: lung cancer Abdominal bruit Cardiac murmur Claudication Smoker Peripheral arterial disease Carotid artery disease Surgical History History of esophagogastroduodenoscopy (EGD) S/P right hemicolectomy S/P femoral-popliteal bypass surgery Status post insertion of iliac artery stent H/O endarterectomy H/O angioplasty History of cardiac cath History of carpal tunnel release Hx of coronary artery bypass graft Family History Other Asthma Social History Smoking Status: Never smoker alcohol intake: never substance use type: denies use current occupational status: retired household members: spouse housing: house marital status: caffeine: No Other Medical History Have you received the Flu Vaccine for this season: No Have you received the Pneumonia Vaccine: Yes Review of Systems Constitutional Constitutional: Reports weakness Eyes Eyes: Denies loss of vision ENT Ears, Nose, Mouth, and Throat: Denies vertigo *Cardiovascular Cardiovascular: Denies syncope *Neurologic Neurologic: Denies loss of vision, Denies syncope, Denies vertigo and Reports weakness Meds Home Medications and Allergies Home Medications ?Medication ?Instructions ?Recorded ?Confirmed ?Type albuterol sulfate 90 mcg/actuation 2 puff inhalation QIDP PRN 08/27/17 02/12/24 History aerosol inhaler (Ventolin HFA) Shortness Of Breath folic acid 1 mg tablet 1 mg PO DAILY Supplement 08/27/17 02/12/24 History fluticasone propionate 50 2 spray intranasal DAILY 08/18/22 02/12/24 History mcg/actuation nasal spray,suspension (Flonase Allergy Relief) multivitamin 1 tab PO DAILY Supplement 09/25/22 02/12/24 History montelukast 10 mg tablet 10 mg PO HS 02/25/23 02/12/24 History isosorbide mononitrate 30 mg 30 mg PO DAILY #90 tabs 04/02/23 02/12/24 Rx tablet,extended release 24 hr spironolactone 25 mg tablet 25 mg PO DAILY 90 days #90 tabs 05/04/23 02/12/24 Rx oxycodone 10 mg tablet 10 mg PO BIDP PRN pain (scale 05/31/23 02/12/24 History score 7-10) pantoprazole 40 mg tablet,delayed 40 mg PO BID Acid reflux #90 tabs 06/02/23 02/12/24 Rx release fluticasone fur. 100 mcg-umeclid 1 inh inhalation DAILY 06/27/23 02/12/24 History 62.5 mcg-vilant 25 mcg inhalat.powder (Trelegy Ellipta) aspirin 81 mg tablet,delayed 81 mg PO DAILY 12/29/23 02/12/24 History release metoprolol succinate 25 mg 25 mg PO DAILY #30 tabs 01/31/24 02/12/24 Rx tablet,extended release 24 hr potassium chloride 20 mEq 20 meq PO DAILY #30 tabs 01/31/24 02/12/24 Rx tablet,extended release atorvastatin 80 mg tablet 80 mg PO HS #30 tabs 02/05/24 02/12/24 Rx brimonidine 0.2 % eye drops drp Eye-Both 02/12/24 02/12/24 History ondansetron 8 mg disintegrating 8 mg PO Q8H PRN nausea and 02/27/24 Rx tablet vomiting #30 tabs prochlorperazine maleate 10 mg 10 mg PO Q6H PRN nausea and 02/27/24 Rx tablet (Compazine) vomiting #30 tabs diphenoxylate-atropine 2.5 1 tab PO TID PRN diarrhea #30 tabs 03/03/24 Rx mg-0.025 mg tablet (Lomotil) New Prescriptions to Start Prescriptions: Allergies Allergy/AdvReac Type Severity Reaction Status Date / Time Penicillins Allergy Intermediate I-ITCHING; Verified 03/11/24 17:07 SWELLING Antihistamines - Ethanolamine Allergy Unknown Unknown Verified 03/11/24 17:07 allergy reaction [place] nut Allergy Rash Verified 03/11/24 17:07 doxycycline AdvReac Mild Rash Verified 03/11/24 17:07 Exam Data for Last 24 hours Vital signs and Labs for Last 24 Hours: Temp Pulse Resp BP Pulse Ox O2 Del Method 98.1 F 96 H 16 86/62 L 96 Room Air 03/11/24 16:00 03/11/24 16:10 03/11/24 16:00 03/11/24 16:10 03/11/24 16:00 03/11/24 16:13 Laboratory Results - last 24 hr 03/11/24 10:17: WBC 0.8 L*, RBC 3.33 L, Hgb 10.5 L, Hct 30.7 L, MCV 92.0, MCH 31.4 H, MCHC 34.2, RDW 16.1, Plt Count 49 L*, MPV 8.3, Neut % (Auto) 35.6 L, Lymph % (Auto) 46.8, [place] % (Auto) 13.8 H, Eos % (Auto) 2.6, Baso % (Auto) 1.1, Neut # (Auto) 0.3 L*, Lymph # (Auto) 0.4 L, [place] # (Auto) 0.1, Eos # (Auto) 0.0, Baso # (Auto) 0.0, Total Counted 25, Neutrophils % (Manual) 36 L, Lymphocytes % (Manual) 32, Atypical Lymphs % 4.0, Monocytes % (Manual) 28 H, Platelet Estimate Marked decrease, RBC Morphology Normal, Ovalocytes 1+, PT 11.5, INR 1.03, APTT 29.3, Sodium 135 L, Potassium 4.1, Chloride 102, Carbon Dioxide 23, Anion Gap 14.1, BUN 19, Creatinine 1.00, Estimated Creat Clear 62, Estimated GFR 72, Est GFR ( Amer) 88, Glucose 96, Calcium 9.0, Magnesium 1.4 L, Total Bilirubin 0.7, AST 29, ALT 30, Alkaline Phosphatase 85, Troponin I 0.12 H, NT-Pro-B Natriuret Pep 1180 H, Total Protein 6.4, Albumin 3.6, Globulin 2.8, Albumin/Globulin Ratio 1.3, TSH 0.98, Thyroxine (T4) 7.2 03/11/24 10:55: VBG pH 7.43 H, VBG pCO2 35.3, VBG pO2 56.2 H, VBG HCO3 22.9 L, VBG Total CO2 23.9, VBG O2 Saturation 87.6 H, VBG Base Excess -1.5, VBG Lactic Acid 1.9, Lactate 1.3 03/11/24 14:30: Troponin I 0.40 H I & O for Last 24 hours: Intake & Output 03/08/24 03/09/24 03/10/24 03/11/24 23:59 23:59 23:59 23:59 Intake Total 300 / 300 Balance 300 / 300 Weight 67.268 kg Constitutional Constitutional: no acute distress *Routine HEENT Exam Head: Present normocephalic Eye: Present EOMI and PERRL ENT: Present mucous membranes moist *Routine Neck Exam Neck: Present supple; Absent lymphadenopathy *Routine Respiratory Exam Respiratory: Present CTA bilaterally *Routine Cardiovascular Exam Cardiovascular: Present RRR *Routine Abdominal Exam Abdominal: Present soft and normoactive bowel sounds; Absent tenderness *Routine Rectal Exam Rectal:: deferred *Routine Genitalia Exam Genitalia:: deferred *Routine Extremities Exam Extremities: Absent cyanosis, clubbing or edema *Routine Skin Exam Skin: Present warm; Absent rash *Routine Neurological Exam Neurological: Present alert and oriented X3 Assessment and Plan *Assessment and plan (1) Atrial fibrillation with rapid ventricular response: Status: Acute Category: Medical Code(s): I48.91 - Unspecified atrial fibrillation (2) Pneumonia: Status: Acute Category: Medical Code(s): J18.9 - Pneumonia, unspecified organism (3) Mastoiditis: Status: Acute Category: Medical Code(s): H70.90 - Unspecified mastoiditis, unspecified ear Plan Lawrence Alonso is a 78-year-old male with a medical history significant for left lung small cell lung carcinoma (currently undergoing chemo/radiation therapy at [facility] and [facility] respectively), organizing pneumonia, history of GI bleeds, paroxysmal A-fib, PAD, CAD s/p CABG, HFrEF 40%, hypertension, aortic stenosis,, ischemic colitis s/p hemicolectomy, GERD who presents with altered mental status, dizziness after radiation therapy today. Patient has had radiation therapy for the past 2 days, but today he stated he felt lightheaded soon after therapy was complete. There was most prominent when standing, and he did not think anything of it until it happened again when he got home. However, this time he states he had generalized weakness and that his was unable to get his attention for several seconds as he was spacing out. He was recently diagnosed with left ear infection and is currently on cefdinir and waiting on topical ear antibiotics prescription from his PCP. He denies fever/chill, chest pain, shortness of breath, abdominal pain, urinary symptoms. He does state he has chronic cough that has not changed, and is not productive in nature. Workup in the ED significant for WBC 0.8, Hgb 10.5, platelets 49, magnesium 1.4, troponin 0.12, BNP 1180. CXR revealed left suprahilar opacity, CTA suggests new infiltrates in the superior segment of the left lower lobe as acute findings. Was discussed with the ED provider and decision was made to admit patient for IV antibiotics for pneumonia in the setting of significant leukopenia from chemo/radiation therapy for SCLC. #Left lower lobe community-acquired pneumonia #Bilateral mastoiditis #Acute metabolic encephalopathy, resolved #Leukopenia, chronic #History of organizing pneumonia of right lung ? CTA suggests new pneumonia, and MRI brain suggests bilateral mastoiditis, which may correlate with patient's dizziness and encephalopathy. ? WBC 0.8, ANC low at 300 in the setting of chemo/radiation therapy for SCLC. ? IV vancomycin, Zosyn day /. Will need a total of 10-day coverage for bilateral mastoiditis and Augmentin should suffice. ? Follow-up procalcitonin, MRSA screen. ? Follow-up sputum, blood cultures. #Paroxysmal A-fib #Elevated troponins ? Initially presenting with A-fib with RVR HR in the 120s. Self resolved. ? Troponin 0.12 to 0.40 to 0.37. Patient denies chest pain, shortness of breath. Looks comfortable. ? Repeat EKG shows sinus rhythm HR 71 without signs of acute ischemia ? Cardiology consulted, do not plan for intervention at this time. No LHC or anticoagulation planned at this time given history of GI bleeds and thrombocytopenia, and likely intolerance to DAPT. ? Continue metoprolol succinate 25 mg daily. ? Continuous cardiac telemetry. ? Follow-up limited ECHO. #Small cell lung carcinoma ? Follows with Dr. Brewster. Undergoing chemo and radiation therapy at [facility] and [facility] respectively. ? Next radiation therapy appointment is on 03/12/2024, rescheduled for next Sunday. #CAD s/p CABG #PAD ? Resume home medications once reconciled. #Hypertension ? Currently stable. ? Resume home medications once reconciled. #GERD ? Resume home Protonix twice daily. #HFrEF ? Currently stable. Resume home medications once reconciled. Full code DVT prophylaxis: SCDs
[2024-03-11 17:20] LABS: Troponin I 0.37 ng/ml (0.00-0.034)
[2024-03-11] MEDS: METRONIDAZ/SOD CHL 500 MG/100 ML PIGGYBACK 100 MG IV ×2 (18:28→23:40)
[2024-03-11] MEDS: VANCOMYCIN CONSULT REQUEST 1 EACH NOTAPPLIC (19:27)
[2024-03-11] MEDS: TRAZODONE 50MG TABLET 25 MG PO (20:23)
[2024-03-11] MEDS: PANTOPRAZOLE 40MG TABLET 40 MG PO (20:23)
[2024-03-11 20:29] LABS: Adenovirus,PCR Not Detected (NotDetected); Bordetella Pertussis Not Detected (NotDetected); Chlamydophila Pneumoniae, PCR Not Detected (NotDetected); Coronavirus 19, PCR Not Detected (NotDetected); Coronavirus 229E Not Detected (NotDetected); Coronavirus NL63 Not Detected (NotDetected); Coronavirus OC43 Not Detected (NotDetected); Coronovirus HKU1,PCR Not Detected (NotDetected); Human Metapneumovirus Not Detected (NotDetected); Influenza A, PCR Not Detected (NotDetected); Influenza AH1, 2009 Not Detected (NotDetected); Influenza AH1, PCR Not Detected (NotDetected); Influenza AH3,PCR Not Detected (NotDetected); Influenza B, PCR Not Detected (NotDetected); Mycoplasma Pneumoniae, PCR Not Detected (NotDetected); Parainfluenza 1, PCR Not Detected (NotDetected); Parainfluenza 2, PCR Not Detected (NotDetected); Parainfluenza 3, PCR Not Detected (NotDetected); Parainfluenza 4, PCR Not Detected (NotDetected); Respiratory Syncytial Virus Not Detected (NotDetected); Rhinovirus/Enterovirus Not Detected (NotDetected)
[2024-03-11] MEDS: ACETAMINOPHEN 325MG TAB 650 MG PO (23:39)
[2024-03-12] VITALS: BP 125/72; PULSE 81; PULSE 90; RESP 16; TEMP 36.7; O2SAT 96
[2024-03-12 04:00] VITALS: BP 124/57; PULSE 73; PULSE 80; RESP 16; TEMP 36.7; O2SAT 98; BMI 24.7
[2024-03-12] MEDS: METRONIDAZ/SOD CHL 500 MG/100 ML PIGGYBACK 100 MG IV ×2 (04:59→12:19)
[2024-03-12] MEDS: VANCOMYCIN HCL 1,000 MG in 0.9 % SODIUM CHLORIDE 250 ML 125 MG IV (06:08)
[2024-03-12 06:24] LABS: Basophils % 0.1 % (0.1-2.0); Eosinophils % 2.6 % (0.1-12.0); Lymphocytes # 0.3 K/mm3 (0.7-4.5); Lymphocytes % 33.9 % (10-50); Mean Corpuscular HGB Conc 34.7 g/dL (31.8-35.4); Mean Corpuscular Volume 89.4 fl (80-94); Mean Platelet Volume 8.7 fl (7.4-10.4); Monocytes # 0.2 K/mm3 (0.1-1.0); Monocytes % 18.4 % (1.7-9.3); Neutrophils # 0.4 K/mm3 (1.8-7.8); Platelet Count 58 K/mm3 (142-424); Red Blood Count 3.02 M/mm3 (4.60-6.20); Red Cell Distribution Width 16.3 % (11.5-17.5)
[2024-03-12 07:06] LABS: Alanine Aminotransferase 27 U/L (12-78); Albumin Level 3.1 g/dl (3.5-5.0); Albumin/Globulin Ratio 1.2 (1.1-1.8); Alkaline Phosphatase 84 U/L (38-126); Anion Gap 11.7 mEq/L (5-15); Aspartate Amino Transferase 30 U/L (17-59); Bilirubin,Total 0.6 mg/dl (0.2-1.3); Blood Urea Nitrogen 18 mg/dl (9-20); Calcium 8.6 mg/dl (8.4-10.2); Carbon Dioxide 23 mmol/L (22.0-30.0); Chloride 106 mmol/L (98-107); Chol/HDL Ratio 2.6 (1-3.5); Cholesterol 86 mg/dl (140-200); Creatinine Clearance Estimated 58 mL/min (50-200); Estimated Glomerular Filt Rate 94 ml/min (>60); GFR (African American) 113 ML/MIN (>60); Globulin 2.6 g/dL (1.3-3.2); Glucose 93 mg/dl (74-100); HDL Cholesterol 33 mg/dl (40-60); Magnesium 1.7 mg/dl (1.6-2.3); Potassium 3.7 mmoL/L (3.5-5.1); Sodium 137 mmol/L (136-145); Total Protein,Serum 5.7 g/dl (6.3-8.2); Triglycerides 65 mg/dl (30-150); VLDL Cholesterol 13 mg/dL (0-40)
--- NOTE | 2024-03-12 07:16 | P.CONPHA_ITS ---
Pharmacy Consult Date: 03/12/24 Time: 07:16 Referring provider: DR. DIANE Reason for Consult:: VANCOMYCIN DOSING Allergies Allergy/AdvReac Type Severity Reaction Status Date / Time Penicillins Allergy Intermediate I-ITCHING; Verified 03/11/24 17:07 SWELLING Antihistamines - Ethanolamine Allergy Unknown Unknown Verified 03/11/24 17:07 allergy reaction [place] nut Allergy Rash Verified 03/11/24 17:07 doxycycline AdvReac Mild Rash Verified 03/11/24 17:07 Home Medications ?Medication ?Instructions ?Recorded ?Confirmed ?Type albuterol sulfate 90 mcg/actuation 2 puff inhalation QIDP PRN 08/27/17 03/12/24 History aerosol inhaler (Ventolin HFA) Shortness Of Breath folic acid 1 mg tablet 1 mg PO DAILY Supplement 08/27/17 03/11/24 History fluticasone propionate 50 2 spray intranasal DAILY 08/18/22 03/11/24 History mcg/actuation nasal spray,suspension (Flonase Allergy Relief) multivitamin 1 tab PO DAILY Supplement 09/25/22 03/11/24 History montelukast 10 mg tablet 10 mg PO HS 02/25/23 03/11/24 History isosorbide mononitrate 30 mg 30 mg PO DAILY #90 tabs 04/02/23 03/11/24 Rx tablet,extended release 24 hr spironolactone 25 mg tablet 25 mg PO DAILY 90 days #90 tabs 05/04/23 03/11/24 Rx oxycodone 10 mg tablet 10 mg PO BIDP PRN pain (scale 05/31/23 03/11/24 History score 7-10) pantoprazole 40 mg tablet,delayed 40 mg PO BID Acid reflux #90 tabs 06/02/23 03/11/24 Rx release fluticasone fur. 100 mcg-umeclid 1 inh inhalation DAILY 06/27/23 03/11/24 History 62.5 mcg-vilant 25 mcg inhalat.powder (Trelegy Ellipta) aspirin 81 mg tablet,delayed 81 mg PO DAILY 12/29/23 03/12/24 History release metoprolol succinate 25 mg 25 mg PO DAILY #30 tabs 01/31/24 03/11/24 Rx tablet,extended release 24 hr atorvastatin 80 mg tablet 80 mg PO HS #30 tabs 02/05/24 03/12/24 Rx ondansetron 8 mg disintegrating 8 mg PO Q8H PRN nausea and 02/27/24 Rx tablet vomiting #30 tabs prochlorperazine maleate 10 mg 10 mg PO Q6H PRN nausea and 02/27/24 Rx tablet (Compazine) vomiting #30 tabs diphenoxylate-atropine 2.5 1 tab PO TID PRN diarrhea #30 tabs 03/03/24 Rx mg-0.025 mg tablet (Lomotil) New Prescriptions to Start Prescriptions: Height: 1.63 m Weight: 65.726 kg Laboratory Results:: Laboratory Results - last 24 hr 03/11/24 10:17: WBC 0.8 L*, RBC 3.33 L, Hgb 10.5 L, Hct 30.7 L, MCV 92.0, MCH 31.4 H, MCHC 34.2, RDW 16.1, Plt Count 49 L*, MPV 8.3, Neut % (Auto) 35.6 L, Lymph % (Auto) 46.8, [place] % (Auto) 13.8 H, Eos % (Auto) 2.6, Baso % (Auto) 1.1, Neut # (Auto) 0.3 L*, Lymph # (Auto) 0.4 L, [place] # (Auto) 0.1, Eos # (Auto) 0.0, Baso # (Auto) 0.0, Total Counted 25, Neutrophils % (Manual) 36 L, Lymphocytes % (Manual) 32, Atypical Lymphs % 4.0, Monocytes % (Manual) 28 H, Platelet Estimate Marked decrease, RBC Morphology Normal, Ovalocytes 1+, PT 11.5, INR 1.03, APTT 29.3, Sodium 135 L, Potassium 4.1, Chloride 102, Carbon Dioxide 23, Anion Gap 14.1, BUN 19, Creatinine 1.00, Estimated Creat Clear 62, Estimated GFR 72, Est GFR ( Amer) 88, Glucose 96, Calcium 9.0, Magnesium 1.4 L, Total Bilirubin 0.7, AST 29, ALT 30, Alkaline Phosphatase 85, Troponin I 0.12 H, NT-Pro-B Natriuret Pep 1180 H, Total Protein 6.4, Albumin 3.6, Globulin 2.8, Albumin/Glob ulin Ratio 1.3, TSH 0.98, Thyroxine (T4) 7.2 03/11/24 10:55: VBG pH 7.43 H, VBG pCO2 35.3, VBG pO2 56.2 H, VBG HCO3 22.9 L, VBG Total CO2 23.9, VBG O2 Saturation 87.6 H, VBG Base Excess -1.5, VBG Lactic Acid 1.9, Lactate 1.3 03/11/24 14:30: Troponin I 0.40 H 03/11/24 16:50: Troponin I 0.37 H 03/11/24 20:21: Chlamy pneumoniae PCR Not detected, Adenovirus (PCR) Not dete cted, B. pertussis DNA (PCR) Not detected, Coronavirus OC43 (PCR) Not detected, Coronavirus HKU1 (PCR) Not detected, Coronavirus 229E (PCR) Not detected, SARS-CoV-2 (PCR) Not detected, Coronavirus NL63 (PCR) Not detected, Human Metapneumovir PCR Not detected, Influenza A (H1) PCR Not detected, Influ A (H1N1/09) PCR Not detected, Influenza A (H3) PCR Not detected, Influenza Type A (PCR) Not detected, Influenza Type B (PCR) Not detected, M. pneumoniae (PCR) Not detected, Parainfluenza 1 (PCR) Not detected, Parainfluenza 2 (PCR) Not detected, Parainfluenza 3 (PCR) Not detected, Parainfluenza 4 (PCR) Not detected, RSV (PCR) Not detected, Entero/Rhino (PCR) Not detected 03/12/24 06:00: Sodium 137, Potassium 3.7, Chloride 106, Carbon Dioxide 23, Anion Gap 11.7, BUN 18, Creatinine 0.80, Estimated Creat Clear 58, Estimated GFR 94, Est GFR ( Amer) 113 D, Glucose 93, Calcium 8.6, Magnesium 1.7 D, Total Bilirubin 0.6, AST 30, ALT 27, Alkaline Phosphatase 84, Total Protein 5.7 L, Albumin 3.1 L D, Globulin 2.6, Albumin/Globulin Ratio 1.2, Triglycerides 65, Cholesterol 86 L, VLDL Cholesterol 13, HDL Cholesterol 33 L, Cholesterol/HDL Ratio 2.6 Medical History: Medical History (Updated 03/11/24 @ 17:25 by Bridger Diane MD) Small cell lung cancer Fatigue Aortic stenosis Organizing pneumonia Lung nodule seen on imaging study Primary lung cancer Pre-procedure lab exam Pneumonia Fungal ear infection Impacted cerumen, bilateral Hearing Loss PAD (peripheral artery disease) COPD (chronic obstructive pulmonary disease) CAD (coronary artery disease) Vasculopathy Coagulopathy Type 2 RI (myocardial infarction) Acute blood loss anemia Acute upper gastrointestinal bleeding Nausea vomiting and diarrhea Respiratory failure Sepsis C. difficile colitis Pain around toenail, left foot Incurved toenail Nonhealing nonsurgical wound Hearing loss, bilateral Paroxysmal atrial fibrillation Ischemic colitis Hyperlipidemia Hypertension Cecum perforation PVD (peripheral vascular disease) Non-healing wound Abnormal ankle brachial index (JUSTICE) Claudication Chronic cough Allergic rhinitis COPD exacerbation Lung nodule Smoking greater than 30 pack years Hemoptysis Dyspnea on exertion COPD mixed type Laceration of right ear canal Impacted cerumen H/O: lung cancer Abdominal bruit Cardiac murmur Claudication Smoker Peripheral arterial disease Carotid artery disease Assessment and Plan Assessment and plan all Dx Assessment and Plan for all problems:: Pharmacokinetic dosing service Objective: Patient: Floor: Age: 78 yo Serum creatinine: 1.00 mg/dL Height: 64.2 Inches Weight (kg): 65.7 Assessment: IBW (kg): 59.66 Dosing wt(kg): 65.7 Estimated Creatinine clearance (ml/min): 52.2 CRCL method: Cockcroft and Gault using ibw(default). Drug selected: Vancomycin Loading dose (mg): Vd (liters): 52.6 (factor used: 0.8 L/kg) Shahriar (hr-1): 0.048 Half life (hrs): 14.44 CLvanco=?? 2.525 L/hr Recommended dose: 1000 mg Interval: 18 hrs Infusion time (hrs): 2.0 Predicted peak (mcg/mL): 31.3 Predicted trough (mcg/mL): 14.52 Total body weight is being used for vancomycin dosing. Recommendations: Give Vancomycin 1000 mg q 18 hrs with an expected Cpeak of 31.3 mcg/ml and an expected Ctrough of 14.52 mcg/ml AUC 0-24 /YANNI Data: YANNI 0.5 mcg/mL:?? AUC/YANNI:? 1056.1 YANNI 1.0 mcg/mL:?? AUC/YANNI:? 528.1 --------- YANNI 1.5 mcg/mL:?? AUC/YANNI:? 352.0 YANNI 2.0 mcg/mL:?? AUC/YANNI:? 264.0 Thank you for the consult, will continue to follow. -MORGAN SOARES, JOSHD
[2024-03-12 07:17] LABS: Direct LDL Cholesterol 36.95 mg/dL (100-129)
--- NOTE | 2024-03-12 07:21 | HMH.PHAINT1 ---
Pharmacy Intervention Comments: home medications verified via outpatient pharmacy and patient interview
[2024-03-12 07:39] LABS: Hemoglobin 9.4 g/dL (14.1-18.0); MANUAL DIFFERENTIAL MANUAL DIFFERENTIAL (MANUAL DIFF); White Blood Count 0.9 K/mm3 (4.8-10.8)
[2024-03-12 07:41] LABS: Procalcitonin 0.166 ng/mL (0.0-2.0)
[2024-03-12 07:56] VITALS: BP 127/68; PULSE 77; RESP 18; TEMP 36.9; O2SAT 100
[2024-03-12 08:00] VITALS: PULSE 80
[2024-03-12 08:15] LABS: Eosinophils % 8 % (0-3); Lymphocytes % 28 % (10-50); Monocytes % 36 % (2-9); Neutrophils % 24 % (42-76); Total Cells Counted 25
[2024-03-12 08:16] LABS: Platelet Estimate Marked Decrease; RBC Morphology Normal
[2024-03-12] MEDS: PANTOPRAZOLE 40MG TABLET 40 MG PO (08:29)
[2024-03-12] MEDS: METOPROLOL SUCCINATE XL 25MG TABLET 25 MG PO (08:29)
[2024-03-12] MEDS: CEFEPIME HCL 2 GM in 0.9 % SODIUM CHLORIDE 100 ML IV (08:29)
--- NOTE | 2024-03-12 10:10 | P.PN_ITS ---
Subjective Subjective Date: 03/12/24 Time: 10:00 Interval history: No events overnight. ECHO shows normal EF, no WMA. Pt denies cardiac questions/concerns. Exam Data for Last 24 hours Vital signs and Labs for Last 24 Hours: Temp Pulse Resp BP Pulse Ox O2 Del Method 98.5 F 77 18 127/68 100 Room Air 03/12/24 07:56 03/12/24 07:56 03/12/24 07:56 03/12/24 07:56 03/12/24 07:56 03/12/24 07:56 Laboratory Results - last 24 hr 03/11/24 10:17: WBC 0.8 L*, RBC 3.33 L, Hgb 10.5 L, Hct 30.7 L, MCV 92.0, MCH 31.4 H, MCHC 34.2, RDW 16.1, Plt Count 49 L*, MPV 8.3, Neut % (Auto) 35.6 L, Lymph % (Auto) 46.8, [place] % (Auto) 13.8 H, Eos % (Auto) 2.6, Baso % (Auto) 1.1, Neut # (Auto) 0.3 L*, Lymph # (Auto) 0.4 L, [place] # (Auto) 0.1, Eos # (Auto) 0.0, Baso # (Auto) 0.0, Total Counted 25, Neutrophils % (Manual) 36 L, Lymphocytes % (Manual) 32, Atypical Lymphs % 4.0, Monocytes % (Manual) 28 H, Platelet Estimate Marked decrease, RBC Morphology Normal, Ovalocytes 1+, PT 11.5, INR 1.03, APTT 29.3, Sodium 135 L, Potassium 4.1, Chloride 102, Carbon Dioxide 23, Anion Gap 14.1, BUN 19, Creatinine 1.00, Estimated Creat Clear 62, Estimated GFR 72, Est GFR ( Amer) 88, Glucose 96, Calcium 9.0, Magnesium 1.4 L, Total Bilirubin 0.7, AST 29, ALT 30, Alkaline Phosphatase 85, Troponin I 0.12 H, NT-Pro-B Natriuret Pep 1180 H, Total Protein 6.4, Albumin 3.6, Globulin 2.8, Albumin/Globulin Ratio 1.3, TSH 0.98, Thyroxine (T4) 7.2 03/11/24 10:55: VBG pH 7.43 H, VBG pCO2 35.3, VBG pO2 56.2 H, VBG HCO3 22.9 L, VBG Total CO2 23.9, VBG O2 Saturation 87.6 H, VBG Base Excess -1.5, VBG Lactic Acid 1.9, Lactate 1.3 03/11/24 14:30: Troponin I 0.40 H 03/11/24 16:50: Troponin I 0.37 H 03/11/24 20:21: Chlamy pneumoniae PCR Not detected, Adenovirus (PCR) Not detected, B. pertussis DNA (PCR) Not detected, Coronavirus OC43 (PCR) Not detected, Coronavirus HKU1 (PCR) Not detected, Coronavirus 229E (PCR) Not dete cted, SARS-CoV-2 (PCR) Not detected, Coronavirus NL63 (PCR) Not detected, Human Metapneumovir PCR Not detected, Influenza A (H1) PCR Not detected, Influ A (H1N1/09) PCR Not detected, Influenza A (H3) PCR Not detected, Influenza Type A (PCR) Not detected, Influenza Type B (PCR) Not detected, M. pneumoniae (PCR) Not detected, Parainfluenza 1 (PCR) Not detected, Parainfluenza 2 (PCR) Not detected, Parainfluenza 3 (PCR) Not detected, Parainfluenza 4 (PCR) Not detected, RSV (PCR) Not detected, Entero/Rhino (PCR) Not detected 03/12/24 06:00: WBC 0.9 L*, RBC 3.02 L, Hgb 9.4 L D, Hct 27.0 L, MCV 89.4, MCH 31.0, MCHC 34.7, RDW 16.3, Plt Count 58 L, MPV 8.7, Neut % (Auto) 45.0, Lymph % (Auto) 33.9, [place] % (Auto) 18.4 H, Eos % (Auto) 2.6, Baso % (Auto) 0.1, Neut # (Auto) 0.4 L*, Lymph # (Auto) 0.3 L, [place] # (Auto) 0.2, Eos # (Auto) 0.0, Baso # (Auto) 0.0, Total Counted 25, Neutrophils % (Manual) 24 L, Band Neutrophils % 4.0, Lymphocytes % (Manual) 28, Monocytes % (Manual) 36 H, Eosinophils % (Manual) 8 H, Platelet Estimate Marked decrease, RBC Morphology Normal, Sodium 137, Potassium 3.7, Chloride 106, Carbon Dioxide 23, Anion Gap 11.7, BUN 18, Creatinine 0.80, Estimated Creat Clear 58, Estimated GFR 94, Est GFR ( Amer) 113 D, Glucose 93, Calcium 8.6, Magnesium 1.7 D, Total Bilirubin 0.6, AST 30, ALT 27, Alkaline Phosphatase 84, Total Protein 5.7 L, Albumin 3.1 L D, Globulin 2.6, Albumin/Globulin Ratio 1.2, Triglycerides 65, Cholesterol 86 L, LDL Cholesterol Direct 36.95 L, VLDL Cholesterol 13, HDL Cholesterol 33 L, Cholesterol/HDL Ratio 2.6, Procalcitonin 0.166 I & O for Last 24 hours: Intake & Output 03/09/24 03/10/24 03/11/24 03/12/24 23:59 23:59 23:59 23:59 Intake Total 300 / 500 535 / 535 Output Total 0 / 0 0 / 0 Balance 300 / 500 535 / 535 Weight 148 lb 4.8 oz 144 lb 14.4 oz Constitutional Constitutional: no acute distress and cooperative *Routine HEENT Exam Eye: Present PERRL *Routine Respiratory Exam Respiratory: Present CTA bilaterally; Absent accessory muscle use, wheezes or crackles *Routine Cardiovascular Exam Cardiovascular: Present RRR, Normal S1 and Normal S2; Absent murmur, gallop or rubs *Routine Abdominal Exam Abdominal: Present soft; Absent tenderness *Routine Extremities Exam Extremities: Present pulses intact; Absent cyanosis or edema *Routine Skin Exam Skin: Present intact; Absent erythema or wounds *Routine Neurological Exam Neurological: Present alert and oriented X3 Routine Psychiatric Exam Psychiatric: Present cooperative Progress Note: A&P Assessment and plan (1) Atrial fibrillation with rapid ventricular response: Status: Acute (2) Pneumonia: Status: Acute (3) Mastoiditis: Status: Acute (4) CAD (coronary artery disease): Status: Acute (5) PAD (peripheral artery disease): Status: Acute Assessment and Plan Assessment and Plan for All Diagnoses:: A-fib RVR - known dx - acute exacerbation in stetting of illness, chemo/radiation - spont conversion to SR - cont home dose metoprolol - no OAC for now due to severe thrombocytopenia - if pt has recurrence may consider antiarrhythmics ethan - he is interested in Watchman referral later - not a candidate right now with severe neutropenia and thrombocytopenia CAD, NSTEMI - known hx s/p prior CABG and PCI - mild trop elevation here in setting of A-fib RVR, appears to be demand ischemia - pt denies angina, no ischemic changes on EKG - Limited ECHO neg for wall motion changes and change in EF. ACS ruled out - DAPT on hold and not a candidate for LHC due to severe thrombocytopenia - cont BB, statin, nitrates PAD - Bilateral Carotid Dz, BLE Dz, Severe SMA dz - no signs of acute ischemia - cont statin Moderate - per ECHO 01/2024 - medical management Hx of recurrent GI bleeding and severe anemia - discussed watchman as outpatient which pt declined - he states now is is interested in referral. Defer for now due to severe thrombocytopenia and neutropenia PNA - LLL per CT scan, WBC 0.8 and Neur 0.3 - on Ab per Hospital service Small Cell Lung Cancer - currently on Chemo/Rad 03/12: ACS ruled out. Pt in SR. Cont current meds. CV stable for DC home.
[2024-03-12] MEDS: ASPIRIN EC 81MG TABLET 81 MG PO (10:21)
[2024-03-12] MEDS: OXYCODONE 5MG IMMEDIATE RELEASE TABLET 10 MG PO (10:21)
[2024-03-12 12:00] VITALS: BP 135/71; PULSE 68; RESP 16; TEMP 36.6; O2SAT 97
--- NOTE | 2024-03-12 12:10 | P.DS_ITS ---
General Admission date:: 03/11/24 HPI HPI HPI: Lawrence Tsang is a 78-year-old male with a medical history significant for left lung small cell lung carcinoma (currently undergoing chemo/radiation therapy at [facility] and [facility] respectively), organizing pneumonia, history of GI bleeds, paroxysmal A-fib, PAD, CAD s/p CABG, HFrEF 40%, hypertension, aortic stenosis,, ischemic colitis s/p hemicolectomy, GERD who presents with altered mental status, dizziness after radiation therapy today. Patient has had radiation therapy for the past 2 days, but today he stated he felt lightheaded soon after therapy was complete. There was most prominent when standing, and he did not think anything of it until it happened again when he got home. However, this time he states he had generalized weakness and that his was unable to get his attention for several seconds as he was spacing out. He was recently diagnosed with left ear infection and is currently on cefdinir and waiting on topical ear antibiotics prescription from his PCP. He denies fever/chill, chest pain, shortness of breath, abdominal pain, urinary symptoms. He does state he has chronic cough that has not changed, and is not productive in nature. Workup in the ED significant for WBC 0.8, Hgb 10.5, platelets 49, magnesium 1.4, troponin 0.12, BNP 1180. CXR revealed left suprahilar opacity, CTA suggests new infiltrates in the superior segment of the left lower lobe as acute findings. Was discussed with the ED provider and decision was made to admit patient for IV antibiotics for pneumonia in the setting of significant leukopenia from chemo/radiation therapy for SCLC. Hospital Course Hospital Course Hospital Course: Lawrence Alonso is a 78-year-old male with a medical history significant for left lung small cell lung carcinoma (currently undergoing chemo/radiation therapy at [facility] and [facility] respectively), organizing pneumonia, history of GI bleeds, paroxysmal A-fib, PAD, CAD s/p CABG, HFrEF 40%, hypertension, aortic stenosis,, ischemic colitis s/p hemicolectomy, GERD who presents with altered mental status, dizziness after radiation therapy today. Patient has had radiation therapy for the past 2 days, but today he stated he felt lightheaded soon after therapy was complete. There was most prominent when standing, and he did not think anything of it until it happened again when he got home. However, this time he states he had generalized weakness and that his was unable to get his attention for several seconds as he was spacing out. He was recently diagnosed with left ear infection and is currently on cefdinir and waiting on topical ear antibiotics prescription from his PCP. He denies fever/chill, chest pain, shortness of breath, abdominal pain, urinary symptoms. He does state he has chronic cough that has not changed, and is not productive in nature. Workup in the ED significant for WBC 0.8, Hgb 10.5, platelets 49, magnesium 1.4, troponin 0.12, BNP 1180. CXR revealed left suprahilar opacity, CTA suggests new infiltrates in the superior segment of the left lower lobe as acute findings. Was discussed with the ED provider and decision was made to admit patient for IV antibiotics for pneumonia in the setting of significant leukopenia from chemo/radiation therapy for SCLC. #Left lower lobe community-acquired pneumonia #Bilateral mastoiditis #Acute metabolic encephalopathy, resolved #Leukopenia, chronic #History of organizing pneumonia of right lung ? CTA suggests new pneumonia, and MRI brain suggests bilateral mastoiditis, which may correlate with patient's dizziness and encephalopathy. Encephalopathy resolved on admission. - Brain MRI did not show metastatic disease. ? WBC 0.8, ANC low at 300 in the setting of chemo/radiation therapy for SCLC, chronic. - Patient was treated with vancomycin and Zosyn for 1 day and remained stable. AOx4, pleasant and conversational. Saturating appropriately on room air. No signs of decompensation. - No tenderness of maistoid bones, bilateraly tympanic membranes show fibrotic changes from chronic ear infections. - Medically stable to be discharged home with close follow-up with PCP within 3- 4 days. - Discharged with broad-spectrum antibiotics in setting of leukopenia, Augmentin 500mg TID and ciprofloxicin 500mg BID for 9 more days. #Paroxysmal A-fib #Elevated troponins ? Initially presenting with A-fib with RVR HR in the 120s. Self resolved. ? Troponin 0.12 to 0.40 to 0.37. Patient denies chest pain, shortness of breath. Looks comfortable. ? Repeat EKG shows sinus rhythm HR 71 without signs of acute ischemia ? Cardiology consulted, do not plan for intervention at this time. No LHC or anticoagulation planned at this time given history of GI bleeds and thrombocytopenia, and likely intolerance to DAPT. ? Continue metoprolol succinate 25 mg daily. ? Limited ECHO did not show wall motion abnormalities, LVEF 50%. - he is interested in Watchman referral later - not a candidate right now with severe neutropenia and thrombocytopenia. #Small cell lung carcinoma ? Follows with Dr. Brewster. Undergoing chemo and radiation therapy at [facility] and [facility] respectively. ? Next radiation therapy appointment is on 03/12/2024, rescheduled for next Sunday. #CAD s/p CABG #PAD ? Continue aspirin. #Hypertension ? Continue home regimen. - Imdur held due to stable pressures, will follow-up with cardiology for resumption. #GERD ? Resume home Protonix twice daily. #HFrEF ? Currently stable. Continue home regimen. Exam Data for Last 24 hours Vital signs and Labs for Last 24 Hours: Temp Pulse Resp BP Pulse Ox O2 Del Method 98.5 F 80 18 127/68 100 Room Air 03/12/24 07:56 03/12/24 08:00 03/12/24 07:56 03/12/24 07:56 03/12/24 07:56 03/12/24 09:00 Laboratory Results - last 24 hr 03/11/24 14:30: Troponin I 0.40 H 03/11/24 16:50: Troponin I 0.37 H 03/11/24 20:21: Chlamy pneumoniae PCR Not detected, Adenovirus (PCR) Not detected, B. pertussis DNA (PCR) Not detected, Coronavirus OC43 (PCR) Not detected, Coronavirus HKU1 (PCR) Not detected, Coronavirus 229E (PCR) Not detected, SARS-CoV-2 (PCR) Not detected, Coronavirus NL63 (PCR) Not detected, Human Metapneumovir PCR Not detected, Influenza A (H1) PCR Not detected, Influ A (H1N1/09) PCR Not detected, Influenza A (H3) PCR Not detected, Influenza Type A (PCR) Not detected, Influenza Type B (PCR) Not detected, M. pneumoniae (PCR) Not detected, Parainfluenza 1 (PCR) Not detected, Parainfluenza 2 (PCR) Not detected, Parainfluenza 3 (PCR) Not detected, Parainfluenza 4 (PCR) Not detected, RSV (PCR) Not detected, Entero/Rhino (PCR) Not detected 03/12/24 06:00: WBC 0.9 L*, RBC 3.02 L, Hgb 9.4 L D, Hct 27.0 L, MCV 89.4, MCH 31.0, MCHC 34.7, RDW 16.3, Plt Count 58 L, MPV 8.7, Neut % (Auto) 45.0, Lymph % (Auto) 33.9, [place] % (Auto) 18.4 H, Eos % (Auto) 2.6, Baso % (Auto) 0.1, Neut # (Auto) 0.4 L*, Lymph # (Auto) 0.3 L, [place] # (Auto) 0.2, Eos # (Auto) 0.0, Baso # (Auto) 0.0, Total Counted 25, Neutrophils % (Manual) 24 L, Band Neutrophils % 4.0, Lymphocytes % (Manual) 28, Monocytes % (Manual) 36 H, Eosinophils % (Manual) 8 H, Platelet Estimate Marked decrease, RBC Morphology Normal, Sodium 137, Potassium 3.7, Chloride 106, Carbon Dioxide 23, Anion Gap 11.7, BUN 18, Creatinine 0.80, Estimated Creat Clear 58, Estimated GFR 94, Est GFR ( Amer) 113 D, Glucose 93, Calcium 8.6, Magnesium 1.7 D, Total Bilirubin 0.6, AST 30, ALT 27, Alkaline Phosphatase 84, Total Protein 5.7 L, Albumin 3.1 L D, Globulin 2.6, Albumin/Globulin Ratio 1.2, Triglycerides 65, Cholesterol 86 L, LDL Cholesterol Direct 36.95 L, VLDL Cholesterol 13, HDL Cholesterol 33 L, Cholesterol/HDL Ratio 2.6, Procalcitonin 0.166 I & O for Last 24 hours: Intake & Output 03/09/24 03/10/24 03/11/24 03/12/24 23:59 23:59 23:59 23:59 Intake Total 300 / 500 535 / 535 Output Total 0 / 0 0 / 0 Balance 300 / 500 535 / 535 Weight 67.268 kg 65.726 kg Microbiology Reports for the Last 24 Hours: Microbiology 03/11/24 10:55 Blood Blood Culture - Preliminary NO GROWTH AFTER 24 HOURS 03/11/24 10:55 Blood Blood Culture - Preliminary NO GROWTH AFTER 24 HOURS Constitutional Constitutional: no acute distress *Routine HEENT Exam Head: Present normocephalic Eye: Present EOMI and PERRL ENT: Present mucous membranes moist *Routine Neck Exam Neck: Present supple; Absent lymphadenopathy *Routine Respiratory Exam Respiratory: Present CTA bilaterally *Routine Cardiovascular Exam Cardiovascular: Present RRR *Routine Abdominal Exam Abdominal: Present soft and normoactive bowel sounds; Absent tenderness *Routine Extremities Exam Extremities: Absent cyanosis, clubbing or edema *Routine Skin Exam Skin: Present warm; Absent rash *Routine Neurological Exam Neurological: Present alert and oriented X3 Results Data Completed and Pending Labs on day of discharge: Labs from last 24 hours 03/12/24 03/11/24 03/11/24 06:00 20:21 16:50 WBC 0.9 L* RBC 3.02 L Hgb 9.4 L D Hct 27.0 L MCV 89.4 MCH 31.0 MCHC 34.7 RDW 16.3 Plt Count 58 L MPV 8.7 Neut % (Auto) 45.0 Lymph % (Auto) 33.9 [place] % (Auto) 18.4 H Eos % (Auto) 2.6 Baso % (Auto) 0.1 Neut # (Auto) 0.4 L* Lymph # (Auto) 0.3 L [place] # (Auto) 0.2 Eos # (Auto) 0.0 Baso # (Auto) 0.0 Total Counted 25 Neutrophils % (Manual) 24 L Band Neutrophils % 4.0 Lymphocytes % (Manual) 28 Monocytes % (Manual) 36 H Eosinophils % (Manual) 8 H Platelet Estimate Marked decrease RBC Morphology Normal Sodium 137 Potassium 3.7 Chloride 106 Carbon Dioxide 23 Anion Gap 11.7 BUN 18 Creatinine 0.80 Estimated Creat Clear 58 Estimated GFR 94 Est GFR ( Amer) 113 D Glucose 93 Calcium 8.6 Magnesium 1.7 D Total Bilirubin 0.6 AST 30 ALT 27 Alkaline Phosphatase 84 Troponin I 0.37 H Total Protein 5.7 L Albumin 3.1 L D Globulin 2.6 Albumin/Globulin Ratio 1.2 Triglycerides 65 Cholesterol 86 L LDL Cholesterol Direct 36.95 L VLDL Cholesterol 13 HDL Cholesterol 33 L Cholesterol/HDL Ratio 2.6 Procalcitonin 0.166 Chlamy pneumoniae PCR Not detected Adenovirus (PCR) Not detected B. pertussis DNA (PCR) Not detected Coronavirus OC43 (PCR) Not detected Coronavirus HKU1 (PCR) Not detected Coronavirus 229E (PCR) Not detected SARS-CoV-2 (PCR) Not detected Coronavirus NL63 (PCR) Not detected Human Metapneumovir PCR Not detected Influenza A (H1) PCR Not detected Influ A (H1N1/09) PCR Not detected Influenza A (H3) PCR Not detected Influenza Type A (PCR) Not detected Influenza Type B (PCR) Not detected M. pneumoniae (PCR) Not detected Parainfluenza 1 (PCR) Not detected Parainfluenza 2 (PCR) Not detected Parainfluenza 3 (PCR) Not detected Parainfluenza 4 (PCR) Not detected RSV (PCR) Not detected Entero/Rhino (PCR) Not detected 03/11/24 14:30 WBC RBC Hgb Hct MCV MCH MCHC RDW Plt Count MPV Neut % (Auto) Lymph % (Auto) [place] % (Auto) Eos % (Auto) Baso % (Auto) Neut # (Auto) Lymph # (Auto) [place] # (Auto) Eos # (Auto) Baso # (Auto) Total Counted Neutrophils % (Manual) Band Neutrophils % Lymphocytes % (Manual) Monocytes % (Manual) Eosinophils % (Manual) Platelet Estimate RBC Morphology Sodium Potassium Chloride Carbon Dioxide Anion Gap BUN Creatinine Estimated Creat Clear Estimated GFR Est GFR ( Amer) Glucose Calcium Magnesium Total Bilirubin AST ALT Alkaline Phosphatase Troponin I 0.40 H Total Protein Albumin Globulin Albumin/Globulin Ratio Triglycerides Cholesterol LDL Cholesterol Direct VLDL Cholesterol HDL Cholesterol Cholesterol/HDL Ratio Procalcitonin Chlamy pneumoniae PCR Adenovirus (PCR) B. pertussis DNA (PCR) Coronavirus OC43 (PCR) Coronavirus HKU1 (PCR) Coronavirus 229E (PCR) SARS-CoV-2 (PCR) Coronavirus NL63 (PCR) Human Metapneumovir PCR Influenza A (H1) PCR Influ A (H1N1/09) PCR Influenza A (H3) PCR Influenza Type A (PCR) Influenza Type B (PCR) M. pneumoniae (PCR) Parainfluenza 1 (PCR) Parainfluenza 2 (PCR) Parainfluenza 3 (PCR) Parainfluenza 4 (PCR) RSV (PCR) Entero/Rhino (PCR) Preliminary micro results at discharge 03/11/24 10:55 Blood Culture - Preliminary Blood NO GROWTH AFTER 24 HOURS 03/11/24 10:55 Blood Culture - Preliminary Blood NO GROWTH AFTER 24 HOURS DS: Diagnosis Discharge Diagnosis (1) Atrial fibrillation with rapid ventricular response: Status: Acute Code(s): I48.91 - Unspecified atrial fibrillation (2) Pneumonia: Status: Acute Code(s): J18.9 - Pneumonia, unspecified organism (3) Mastoiditis: Status: Acute Code(s): H70.90 - Unspecified mastoiditis, unspecified ear (4) CAD (coronary artery disease): Status: Acute Code(s): I25.10 - Atherosclerotic heart disease of [place] coronary artery without angina pectoris Qualifiers: Associated angina: without angina Coronary Disease-Associated Artery/Lesion type: bypass graft [place] vs. transplanted heart: [place] heart Qualified Code(s): I25.810 - Atherosclerosis of coronary artery bypass graft(s) without angina pectoris (5) PAD (peripheral artery disease): Status: Acute Code(s): I73.9 - Peripheral vascular disease, unspecified Meds Home Medications and Allergies Home Medications ?Medication ?Instructions ?Recorded ?Confirmed ?Type albuterol sulfate 90 mcg/actuation 2 puff inhalation QIDP PRN 08/27/17 03/12/24 History aerosol inhaler (Ventolin HFA) Shortness Of Breath folic acid 1 mg tablet 1 mg PO DAILY 08/27/17 03/12/24 History fluticasone propionate 50 2 spray intranasal DAILY 08/18/22 03/12/24 History mcg/actuation nasal spray,suspension (Flonase Allergy Relief) multivitamin 1 tab PO DAILY 09/25/22 03/12/24 History montelukast 10 mg tablet 10 mg PO HS 02/25/23 03/12/24 History isosorbide mononitrate 30 mg 30 mg PO DAILY #90 tabs 04/02/23 03/12/24 Rx tablet,extended release 24 hr spironolactone 25 mg tablet 25 mg PO DAILY 90 days #90 tabs 05/04/23 03/12/24 Rx oxycodone 10 mg tablet 10 mg PO BIDP PRN pain (scale 05/31/23 03/11/24 History score 7-10) pantoprazole 40 mg tablet,delayed 40 mg PO BID Acid reflux #90 tabs 06/02/23 03/11/24 Rx release fluticasone fur. 100 mcg-umeclid 1 inh inhalation DAILY 06/27/23 03/12/24 History 62.5 mcg-vilant 25 mcg inhalat.powder (Trelegy Ellipta) aspirin 81 mg tablet,delayed 81 mg PO DAILY 12/29/23 03/12/24 History release metoprolol succinate 25 mg 25 mg PO DAILY #30 tabs 01/31/24 03/12/24 Rx tablet,extended release 24 hr atorvastatin 80 mg tablet 80 mg PO HS #30 tabs 02/05/24 03/12/24 Rx amoxicillin 500 mg-potassium 1 tab PO TID 9 days #27 tabs 03/12/24 Rx clavulanate 125 mg tablet (Augmentin) ciprofloxacin HCl 500 mg tablet 500 mg PO BID 9 days #18 tabs 03/12/24 Rx (Cipro) diphenoxylate-atropine 2.5 1 tab PO TIDP PRN Diarrhea 03/12/24 03/12/24 History mg-0.025 mg tablet (Lomotil) ondansetron 8 mg disintegrating 8 mg PO Q8HP PRN nausea and 03/12/24 03/12/24 History tablet vomiting potassium chloride 20 mEq 20 meq PO DAILY 03/12/24 03/12/24 History tablet,extended release prochlorperazine maleate 10 mg 10 mg PO Q6HP PRN nausea and 03/12/24 03/12/24 History tablet (Compazine) vomiting New Prescriptions to Start Prescriptions: amoxicillin-pot clavulanate [Augmentin] Bridger Campuzano ciprofloxacin HCl [Cipro] Bridger Campuzano Allergies Allergy/AdvReac Type Severity Reaction Status Date / Time Penicillins Allergy Intermediate I-ITCHING; Verified 03/11/24 17:07 SWELLING Antihistamines - Ethanolamine Allergy Unknown Unknown Verified 03/11/24 17:07 allergy reaction [place] nut Allergy Rash Verified 03/11/24 17:07 doxycycline AdvReac Mild Rash Verified 03/11/24 17:07 Discharge Plan Disposition Patient Disposition: Home, Self-Care Follow up Plan Follow up with: Enid Rangel APRN [Nurse Practitioner] - 03/19/24 1:40 pm (Bilateral mastoiditis) Curtis Montes MD [Primary Care Provider] - 03/17/24 9:45 am Prescriptions/Medication Reconciliation: New amoxicillin-pot clavulanate [Augmentin] 500-125 mg tablet 1 tab PO TID 9 Days Qty: 27 0RF ciprofloxacin HCl [Cipro] 500 mg tablet 500 mg PO BID 9 Days Qty: 18 0RF Continued metoprolol succinate 25 mg tablet extended release 24 hr 25 mg PO DAILY Qty: 30 3RF folic acid 1 mg tablet 1 mg PO DAILY albuterol sulfate [Ventolin HFA] 90 mcg/actuation HFA aerosol inhaler 2 puff inhalation QIDP PRN (Reason: Shortness Of Breath) multivitamin Tablet 1 tab PO DAILY spironolactone 25 mg tablet 25 mg PO DAILY 90 Days Qty: 90 3RF atorvastatin 80 mg tablet 80 mg PO HS Qty: 30 0RF fluticasone propionate [Flonase Allergy Relief] 50 mcg/actuation spray,suspension 2 spray intranasal DAILY Rx Instructions: administer into each nostril montelukast 10 mg tablet 10 mg PO HS Patient Comments: TAKE 1 TABLET BY MOUTH ONCE DAILY oxycodone 10 mg tablet 10 mg PO BIDP PRN (Reason: pain (scale score 7-10)) pantoprazole 40 mg tablet,delayed release (DR/EC) 40 mg PO BID Qty: 90 1RF Patient Comments: TAKE 1 TABLET BY MOUTH ONCE DAILY potassium chloride 20 mEq tablet extended release 20 meq PO DAILY Patient Comments: TAKE 1 TABLET BY MOUTH ONCE DAILY diphenoxylate-atropine [Lomotil] 2.5-0.025 mg tablet 1 tab PO TIDP PRN (Reason: Diarrhea) prochlorperazine maleate [Compazine] 10 mg tablet 10 mg PO Q6HP PRN (Reason: nausea and vomiting) ondansetron 8 mg tablet,disintegrating 8 mg PO Q8HP PRN (Reason: nausea and vomiting) Trelegy Ellipta 100-62.5-25 mcg Blister With Device 1 inh INHALATION DAILY aspirin 81 mg Tablet,Delayed Release (Dr/Ec) 81 mg PO DAILY Held isosorbide mononitrate 30 mg tablet extended release 24 hr 30 mg PO DAILY Qty: 90 5RF Hold Instructions: Resume on 03/26/24. Your blood pressures have been stable without this medication. Please talk to your telephone information supervisor about resuming this medication. Problem Reconciliation Problems Reviewed?: Yes Patient Discharge Instructions Patient Instructions: DI for Heart Attack, DI for Pneumonia -- Adult, DI for Atrial Fibrillation Print Language: [place] Providers Primary Care Provider: Curtis Montes Admit Provider: Bridger Campuazno Attending Provider: Bridger Campuzano
== END 2024-03-12 13:20 | disposition home or self-care (01) ==
LOC: ER 10:12 → 2ND 13:11
PROVIDERS: Admitting Provider Student in an Organized Health Care Education/Training Program; Emergency Provider Emergency Medicine; PCP Internal Medicine Adolescent Medicine; Visit Provider Student in an Organized Health Care Education/Training Program
DX: J18.9 Pneumonia, unspecified organism (principal); I48.0 Paroxysmal atrial fibrillation; H70.93 Unspecified mastoiditis, bilateral; I35.0 Nonrheumatic aortic (valve) stenosis; J84.89 Other specified interstitial pulmonary diseases; C34.92 Malignant neoplasm of unspecified part of left bronchus or lung; I25.810 Atherosclerosis of coronary artery bypass graft(s) without angina pectoris; I73.9 Peripheral vascular disease, unspecified; Z79.899 Other long term (current) drug therapy; Z95.1 Presence of aortocoronary bypass graft; I50.20 Unspecified systolic (congestive) heart failure; I11.0 Hypertensive heart disease with heart failure; I25.10 Atherosclerotic heart disease of native coronary artery without angina pectoris; I25.2 Old myocardial infarction; I77.1 Stricture of artery; J44.9 Chronic obstructive pulmonary disease, unspecified; G93.41 Metabolic encephalopathy; D72.819 Decreased white blood cell count, unspecified
CPT/HCPCS: 70551; 71045; 71275; 80053; 80061; 82803; 83605; 83735; 83880; 84145; 84436; 84443; 84484; 85007; 85025; 85027; 85610; 85730; 87040; 87081; 87633; 93005; 93308; 99285; G0378; J3370; J3372; J3475; J7050; Q9967

== ENCOUNTER 2024-03-18 09:38 | Outpatient (CLI) | payer MEDICARE, OTHER, SELFPAY ==
[2024-03-18 10:09] LABS: Basophils # 0.1 K/mm3 (0-0.2); Eosinophils % 0.6 % (0.1-12.0); Hemoglobin 11.2 g/dL (14.1-18.0); Lymphocytes # 0.8 K/mm3 (0.7-4.5); Lymphocytes % 16.7 % (10-50); Mean Corpuscular HGB Conc 33.8 g/dL (31.8-35.4); Mean Corpuscular Hemoglobin 31.4 pg (27.0-31.2); Mean Corpuscular Volume 93.1 fl (80-94); Monocytes # 0.6 K/mm3 (0.1-1.0); Monocytes % 12.1 % (1.7-9.3); Neutrophils # 3.4 K/mm3 (1.8-7.8); Neutrophils % 69.6 % (37.0-80.0); Platelet Count 205 K/mm3 (142-424); Red Blood Count 3.55 M/mm3 (4.60-6.20); Red Cell Distribution Width 17.1 % (11.5-17.5); White Blood Count 4.9 K/mm3 (4.8-10.8)
[2024-03-18 10:18] LABS: Albumin Level 3.8 g/dl (3.5-5.0); Chloride 108 mmol/L (98-107); Potassium 4.1 mmoL/L (3.5-5.1); Sodium 142 mmol/L (136-145)
[2024-03-18 10:20] LABS: Blood Urea Nitrogen 13 mg/dl (9-20); Estimated Glomerular Filt Rate 94 ml/min (>60); GFR (African American) 113 ML/MIN (>60)
[2024-03-18 10:21] LABS: Alanine Aminotransferase 33 U/L (12-78); Albumin/Globulin Ratio 1.4 (1.1-1.8); Alkaline Phosphatase 72 U/L (38-126); Anion Gap 12.1 mEq/L (5-15); Aspartate Amino Transferase 41 U/L (17-59); Bilirubin,Total 0.3 mg/dl (0.2-1.3); Carbon Dioxide 26 mmol/L (22.0-30.0); Globulin 2.8 g/dL (1.3-3.2); Glucose 111 mg/dl (74-100); Total Protein,Serum 6.6 g/dl (6.3-8.2)
--- NOTE | 2024-03-18 12:01 | PC.NURSE ---
1002 Patient here for labs prior to appointment with Dr. Brewster this am. L upper arm PICC is occluded/ will no flush and no blood return. Labs obtained per venipuncture to R hand x1 stick with butterfly needle. Patient tolerated well.
== END 2024-03-18 11:30 | disposition home or self-care (01) ==
LOC: INF 09:39
PROVIDERS: PCP Internal Medicine Adolescent Medicine; Visit Provider Internal Medicine Medical Oncology
DX: C34.90 Malignant neoplasm of unspecified part of unspecified bronchus or lung (principal)
CPT/HCPCS: 36415; 80053; 85025; G0463

== ENCOUNTER 2024-04-23 08:07 | Outpatient (CLI) | payer MEDICARE, OTHER, SELFPAY ==
--- NOTE | 2024-04-23 08:08 | CT_ITS ---
FINAL REPORT TECHNIQUE: Routine axial images were obtained from the lung apices to below the diaphragm following IV contrast administration. Individualized dose reduction techniques using automated exposure control or adjustment of the mA and/or kV according to the patient size were employed. CLINICAL HISTORY: SMALL CELL LUNG CANCER COMPARISON: CTA of the chest 03/11/2024 FINDINGS: CT CHEST WITH CONTRAST: CT examination of the chest was performed after the administration of intravenous contrast, and is compared to a prior CTA of the chest dated 03/11/2024. There is streak artifact noted secondary to sternotomy wires. Moderate coronary artery calcifications are noted. There is persistent abnormal opacity in the posterior left upper lobe and the superior segment to the left lower lobe, similar to the previous exam. There is scarring and fibrosis in the left perihilar region, that may represent post therapy changes. There is a density in the posterior right upper lobe, which appears stable from the prior exam. Scarring is present in the right lung base. No new masses or infiltrates are identified. Note is made of multiple bilateral renal cysts in the upper abdomen, stable. IMPRESSION: Stable chest CT when compared to the prior examination of 03/11/2024. Specifically, no new or enlarging masses or infiltrates are identified. Reviewed, Interpreted and Dictated by Jakbu Jansen MD Transcribed by Loreto Gonzalez Authenticated and [facility]
--- NOTE | 2024-04-23 08:08 | CT_ITS ---
FINAL REPORT TECHNIQUE: After the administration of intravenous contrast, axial images were obtained through the abdomen and pelvis by computed tomography. This study was performed with technique to keep radiation doses as low as reasonably achievable, (ALARA). Individualized dose reduction techniques using automated exposure control or adjustment of the MA and/or KV according to the patient's size were employed. CLINICAL HISTORY: SMALL CELL LUNG CANCER COMPARISON: 08/02/2023 FINDINGS: Abdomen: The liver is somewhat nodular at the periphery which is concerning for early cirrhosis. There is diffuse fatty infiltration. Gallbladder is present. There are new, low-attenuation areas in the spleen measuring up to 1.7 cm. This is best seen on image 14 of series 3. The adrenals are normal. The pancreas is unremarkable. There are benign appearing bilateral renal cysts measuring up to 3.5 cm. The aorta is normal in caliber. There is no free fluid or adenopathy. There is protrusion of the anterior abdominal wall fascia. There is diverticulosis without evidence of diverticulitis. Pelvis: The appendix is not identified. The urinary bladder is decompressed. There is no free fluid or adenopathy. There is advanced degenerative disc disease from L3-4 through L5-S1. IMPRESSION: New low-attenuation areas in the spleen which could be related to perfusion. Consider CT or ultrasound for further evaluation. Findings concerning for early cirrhosis. Reviewed, Interpreted and Dictated by Jakub Jansen MD Transcribed by Rach Sotomayor Authenticated and [facility]
[2024-04-23 08:44] LABS: Blood Urea Nitrogen 10 mg/dl (9-20); Estimated Glomerular Filt Rate 109 ml/min (>60); GFR (African American) 132 ML/MIN (>60)
[2024-04-23] MEDS: IOPAMIDOL-370 (76%);100ML BOTTLE 75 ML IV (09:07)
[2024-04-23] MEDS: SODIUM CHLORIDE 0.9% 10ML SYR (RAD ONLY) 10 ML IV (09:07)
[2024-04-23] MEDS: BARIUM SULFATE(READI-CAT2);450ML BOTTLE 450 ML PO (09:07)
--- NOTE | 2024-04-23 14:31 | PC.NURSE ---
0830- started 22g in right forearm for CT scan. yelena CBC and cmp via butterfly needle in right hand per MD Narcisa. pt tolerated well.
== END 2024-04-23 23:59 | disposition home or self-care (01) ==
LOC: RAD 08:08
PROVIDERS: PCP Internal Medicine Adolescent Medicine; Visit Provider Internal Medicine Medical Oncology
DX: C34.90 Malignant neoplasm of unspecified part of unspecified bronchus or lung (principal)
CPT/HCPCS: 36415; 71260; 74177; 82565; 84520; Q9967

== ENCOUNTER 2024-05-01 09:22 | Outpatient (CLI) | payer MEDICARE, OTHER, SELFPAY ==
--- NOTE | 2024-05-01 09:24 | US_ITS ---
FINAL REPORT TECHNIQUE: Multiple transverse and longitudinal images CLINICAL HISTORY: CT SCAN SHOWS LIVER LESION COMPARISON: CT abdomen and pelvis 04/23/2024 FINDINGS: Echogenic material within the gallbladder is considered sludge. No biliary ductal dilatation is appreciated. No fluid collections are seen. The liver is fatty infiltrated. There is a 17 mm lesion in the posterior right hepatic lobe with internal echoes and mild increased through transmission, probably a complex cyst.. There is a small exophytic cyst in the upper pole of the right kidney measuring up to 18 mm. IMPRESSION: Right liver mass, probable complex cyst. Fatty liver. Reviewed, Interpreted and Dictated by Carol Jolly MD Transcribed by Nichelle Pearson Authenticated and [facility]
== END 2024-05-01 23:59 | disposition home or self-care (01) ==
LOC: RAD 09:24
PROVIDERS: PCP Internal Medicine Adolescent Medicine; Visit Provider Internal Medicine Medical Oncology
DX: C34.90 Malignant neoplasm of unspecified part of unspecified bronchus or lung (principal)
CPT/HCPCS: 76705

== ENCOUNTER 2024-05-15 10:33 | Outpatient (CLI) | payer MEDICARE, OTHER, SELFPAY ==
[2024-05-15 11:13] LABS: Chloride 104 mmol/L (98-107)
[2024-05-15 11:14] LABS: Potassium 3.2 mmoL/L (3.5-5.1); Sodium 140 mmol/L (136-145)
[2024-05-15 11:16] LABS: Alanine Aminotransferase 25 U/L (12-78); Aspartate Amino Transferase 38 U/L (17-59); Blood Urea Nitrogen 16 mg/dl (9-20); Estimated Glomerular Filt Rate 93 ml/min (>60); GFR (African American) 113 ML/MIN (>60)
[2024-05-15 11:17] LABS: Albumin/Globulin Ratio 1.5 (1.1-1.8); Alkaline Phosphatase 76 U/L (38-126); Anion Gap 12.2 mEq/L (5-15); Bilirubin,Total 0.6 mg/dl (0.2-1.3); Calcium 9.1 mg/dl (8.4-10.2); Carbon Dioxide 27 mmol/L (22.0-30.0); Globulin 2.6 g/dL (1.3-3.2); Glucose 138 mg/dl (74-100); Iron 87 ug/dL (49-181); Total Protein,Serum 6.6 g/dl (6.3-8.2)
[2024-05-15 11:26] LABS: Total Iron Binding Capacity 349 ug/dL (261-462)
[2024-05-15 11:52] LABS: Ferritin 17.2 ng/ml (17.9-464)
[2024-05-16 14:26] LABS: Actin (Smooth Muscle) Antibody 3 Units (0-19); Mitochondrial (M2) Antibody <20.0 Units (0.0-20.0)
[2024-05-20 08:13] LABS: ALT (SGPT) P5P 18 IU/L (0-55); AST (SGOT) P5P 25 IU/L (0-40); Alpha 2-Macroglobulins, Qn 312 mg/dL (110-276); Apolipoprotein A-1 128 mg/dL (101-178); Bilirubin, Total 0.3 mg/dL (0.0-1.2); Cholesterol, Total 111 mg/dL (100-199); Fibrosis Score 0.49 (0.00-0.21); GGT 35 IU/L (0-65); Glucose 143 mg/dL (70-99); Haptoglobin 230 mg/dL (34-355); NASH Score 0.72 (0.00-0.25); Steatosis Score 0.56 (0.00-0.40); Triglycerides 144 mg/dL (0-149)
[2024-06-02 18:14] LABS: Alpha-1-Antitrypsin 182 mg/dL (101-187)
== END 2024-05-15 23:59 | disposition home or self-care (01) ==
LOC: LAB 10:34
PROVIDERS: PCP Internal Medicine Adolescent Medicine; Visit Provider Nurse Practitioner Family
DX: R93.2 Abnormal findings on diagnostic imaging of liver and biliary tract (principal); D64.9 Anemia, unspecified
CPT/HCPCS: 36415; 80053; 81256; 82103; 82104; 82728; 83540; 83550; 86255; 86256

== ENCOUNTER 2024-07-07 10:56 | Outpatient (CLI) | payer MEDICARE, OTHER, SELFPAY ==
--- NOTE | 2024-07-07 10:59 | XR_ITS ---
FINAL REPORT CLINICAL HISTORY: SOB pt states chest cough COMPARISON: 03/11/2024 FINDINGS: PA and lateral views of the chest were obtained. Prior median sternotomy. Heart is stable in size.. Interval development of masslike opacity left perihilar region. Given that this developed in a relatively short timeframe, this is favored to represent pneumonia. However, underlying mass is not excluded. Previously seen right basilar opacity has resolved. There is underlying emphysema. There is no pleural effusion or pneumothorax. No acute osseous abnormality is identified. IMPRESSION: New left perihilar masslike opacity, favor pneumonia but underlying mass not excluded. Recommend 4-week follow-up to ensure resolution or consider chest CT. Reviewed, Interpreted and Dictated by Yas Coe MD Transcribed by Nichelle Pearson Authenticated and [facility]
--- NOTE | 2024-07-07 13:45 | CT_ITS ---
FINAL REPORT TECHNIQUE: Thin section axial images were obtained from the lung apices through the upper abdomen without contrast. This study was performed with techniques to keep radiation doses as low as reasonably achievable (ALARA). Individualized dose reduction techniques using automated exposure control or adjustment of mA and/or kV according to the patient's size were employed. CLINICAL HISTORY: Radiation Pneumonitis. SOB, COUGH, HISTORY LUNG CANCER COMPARISON: 04/23/2024 FINDINGS: No axillary lymphadenopathy. Small lymph nodes in the AP window are unchanged. Interval increase in size of right paratracheal lymph node measuring 19 x 16 mm and was 9 x 8 mm. Subcarinal lymph node also increased in size now measuring 26 mm and previously measured 19 mm.. Small left pleural effusion is new. There is no right pleural effusion or pericardial effusion.. Changes of emphysema are noted. Airspace disease posterior left upper lobe is unchanged. New left perihilar groundglass opacity is present. Airspace disease medial left lower lobe is worse, now with a more nodular appearance. New nodules are noted in the left lower lobe. A new nodule on series 2 image 67 measures 7 mm. A right lower lobe nodule on image 68 is unchanged. There is a right middle lobe nodular opacity measuring 9 mm which previously measured 10 mm. Limited images of the upper abdomen demonstrate no acute findings. There are stable bilateral hypodense renal lesions. There is no acute osseous abnormality. IMPRESSION: Progression of mediastinal lymphadenopathy concerning for recurrent or metastatic disease. New nodules left lower lobe could be infectious, inflammatory, or metastatic. New left perihilar groundglass opacities could be due to radiation therapy, or could be infectious or neoplastic. Consider short interval follow-up chest CT or PET/CT. Stable appearance right lung. Reviewed, Interpreted and Dictated by Yas Coe MD Transcribed by Nichelle Pearson Authenticated and [facility]
== END 2024-07-07 23:59 | disposition home or self-care (01) ==
PROVIDERS: PCP Internal Medicine Adolescent Medicine; Visit Provider Internal Medicine Pulmonary Disease
DX: R06.02 Shortness of breath (principal); R91.8 Other nonspecific abnormal finding of lung field; J18.9 Pneumonia, unspecified organism; B96.89 Other specified bacterial agents as the cause of diseases classified elsewhere
CPT/HCPCS: 71046; 71250; 87070; 87077; 87205

== ENCOUNTER 2024-08-13 09:03 | Outpatient (CLI) | payer MEDICARE, OTHER, SELFPAY ==
[2024-08-13 09:25] LABS: Basophils # 0.1 K/mm3 (0-0.2); Basophils % 0.6 % (0.1-2.0); Eosinophils # 0.3 Kmm3 (0.0-0.4); Eosinophils % 3.3 % (0.1-12.0); Hematocrit 37.1 % (42.0-52.0); Hemoglobin 11.8 g/dL (14.1-18.0); Lymphocytes # 0.8 K/mm3 (0.7-4.5); Lymphocytes % 9.1 % (10-50); Mean Corpuscular HGB Conc 31.8 g/dL (31.8-35.4); Mean Corpuscular Hemoglobin 28.2 pg (27.0-31.2); Mean Corpuscular Volume 88.8 fl (80-94); Mean Platelet Volume 10.1 fl (7.4-10.4); Monocytes # 0.7 K/mm3 (0.1-1.0); Neutrophils # 6.8 K/mm3 (1.8-7.8); Neutrophils % 78.7 % (37.0-80.0); Nucleated Red Blood Cells # 0 10^3/uL; Nucleated Red Blood Cells % 0 %; Platelet Count 232 K/mm3 (142-424); Red Blood Count 4.18 M/mm3 (4.60-6.20); Red Cell Distribution Width-SD 54.9 fL; White Blood Count 8.7 K/mm3 (4.8-10.8)
[2024-08-13 09:27] LABS: Albumin Level 3.8 g/dl (3.5-5.0); Chloride 106 mmol/L (98-107); Potassium 3.2 mmoL/L (3.5-5.1); Sodium 138 mmol/L (136-145)
[2024-08-13 09:30] LABS: Alanine Aminotransferase 25 U/L (12-78); Albumin/Globulin Ratio 1.4 (1.1-1.8); Alkaline Phosphatase 78 U/L (38-126); Anion Gap 11.2 mEq/L (5-15); Aspartate Amino Transferase 31 U/L (17-59); Bilirubin,Total 0.7 mg/dl (0.2-1.3); Blood Urea Nitrogen 14 mg/dl (9-20); Carbon Dioxide 24 mmol/L (22.0-30.0); Estimated Glomerular Filt Rate 82 ml/min (>60); GFR (African American) 99 ML/MIN (>60); Globulin 2.7 g/dL (1.3-3.2); Total Protein,Serum 6.5 g/dl (6.3-8.2)
[2024-08-13 09:31] LABS: Calcium 9.1 mg/dl (8.4-10.2); Glucose 128 mg/dl (74-100)
[2024-08-13] MEDS: DEXAMETHASONE 4MG TABLET 12 MG PO (10:15)
[2024-08-13] MEDS: SODIUM CHLORIDE 0.9% 50ML BAG 50 ML IV (10:15)
[2024-08-13] MEDS: ONDANSETRON 4MG ODT 16 MG SL (10:15)
[2024-08-13] MEDS: LURBINECTEDIN IV (10:40)
[2024-08-13] MEDS: SODIUM CHLORIDE 0.9% IV (10:40)
[2024-08-13 10:50] VITALS: BP 140/65; PULSE 75; RESP 18; TEMP 36.7; O2SAT 93
[2024-08-13 11:05] VITALS: BP 151/65; PULSE 73; O2SAT 94
[2024-08-13 11:20] VITALS: BP 145/61; PULSE 70; O2SAT 94
[2024-08-13 11:35] VITALS: BP 150/72; PULSE 74
[2024-08-13 11:50] VITALS: BP 135/72; PULSE 71
== END 2024-08-13 11:55 | disposition home or self-care (01) ==
LOC: INF 09:05
PROVIDERS: PCP Internal Medicine Adolescent Medicine; Visit Provider Internal Medicine Medical Oncology
DX: C34.90 Malignant neoplasm of unspecified part of unspecified bronchus or lung (principal)
CPT/HCPCS: 80053; 85025; 96413; J8540; J9223; Q0162

== ENCOUNTER 2024-08-18 09:00 | Inpatient (IN) | payer MEDICARE, OTHER, SELFPAY ==
[2024-08-15 11:25] VITALS: BMI 24.3
[2024-08-15] MEDS: ONDANSETRON 4MG/2ML VIAL 8 MG (11:32)
[2024-08-15] MEDS: 0.9 % SODIUM CHLORIDE 1000ML 1,000 ML 999 ML IV (11:33)
[2024-08-15] MEDS: DEXAMETHASONE 4MG/ML 1ML VIAL 8 MG (11:33)
[2024-08-15 11:40] VITALS: BP 145/52; PULSE 81; RESP 18; TEMP 37.2; O2SAT 100
[2024-08-15 12:01] LABS: Alanine Aminotransferase 574 U/L (12-78); Albumin Level 3.7 g/dl (3.5-5.0); Albumin/Globulin Ratio 1.2 (1.1-1.8); Alkaline Phosphatase 67 U/L (38-126); Anion Gap 10.3 mEq/L (5-15); Blood Urea Nitrogen 32 mg/dl (9-20); Calcium 8.7 mg/dl (8.4-10.2); Carbon Dioxide 25 mmol/L (22.0-30.0); Chloride 105 mmol/L (98-107); Creatinine Clearance Estimated 59 mL/min (50-200); Estimated Glomerular Filt Rate 82 ml/min (>60); GFR (African American) 99 ML/MIN (>60); Globulin 3.2 g/dL (1.3-3.2); Glucose 138 mg/dl (74-100); Potassium 3.3 mmoL/L (3.5-5.1); Sodium 137 mmol/L (136-145); Total Protein,Serum 6.9 g/dl (6.3-8.2)
[2024-08-15 12:02] LABS: Magnesium 1.5 mg/dl (1.6-2.3)
[2024-08-15 12:08] LABS: Aspartate Amino Transferase 780 U/L (17-59)
[2024-08-15 12:10] VITALS: BP 134/54; PULSE 78
--- NOTE | 2024-08-15 13:06 | PC.NURSE ---
report given to Teri Root RN at this time.
--- NOTE | 2024-08-15 13:12 | EXP.HP ---
History of Present Illness *Admission Date: 08/15/24 *Reason for visit:: nausea and vomiting *History of present illness: 79-year-old male with metastatic squamous cell carcinoma of the lung. Recently started salvage chemotherapy on Sunday. After receiving his first dose, has developed abdominal pain and nausea and vomiting over the past 48 hours. Unable to keep anything down. Had outpatient labs that showed transaminitis and LO. Was sent for infusions in the outpatient setting today with IV fluids. Due to persistent nausea and vomiting, oncologist reached out to hospital medicine for admission and further management. Patient admitted to the floor. Continues to have abdominal pain. Stable on room air. at bedside. Will monitor for improvement with fluid resuscitation and serial labs. [facility] Disclaimer: The information contained in this section may have been updated after the patient was seen, as this information can be updated by other users. Medical History Debris in left ear canal Cholesteatoma of left external auditory canal Hypotension Small cell lung cancer Fatigue Aortic stenosis Organizing pneumonia Lung nodule seen on imaging study Primary lung cancer Pre-procedure lab exam Pneumonia Fungal ear infection Impacted cerumen, bilateral Hearing Loss PAD (peripheral artery disease) COPD (chronic obstructive pulmonary disease) CAD (coronary artery disease) Vasculopathy Coagulopathy Type 2 NE (myocardial infarction) Acute blood loss anemia Acute upper gastrointestinal bleeding Nausea vomiting and diarrhea Respiratory failure Sepsis C. difficile colitis Pain around toenail, left foot Incurved toenail Nonhealing nonsurgical wound Hearing loss, bilateral Paroxysmal atrial fibrillation Ischemic colitis Hyperlipidemia Hypertension Cecum perforation PVD (peripheral vascular disease) Non-healing wound Abnormal ankle brachial index (JUSTICE) Claudication Chronic cough Allergic rhinitis COPD exacerbation Lung nodule Smoking greater than 30 pack years Hemoptysis Dyspnea on exertion COPD mixed type Laceration of right ear canal Impacted cerumen H/O: lung cancer Abdominal bruit Cardiac murmur Claudication Smoker Peripheral arterial disease Carotid artery disease Surgical History History of esophagogastroduodenoscopy (EGD) S/P right hemicolectomy S/P femoral-popliteal bypass surgery Status post insertion of iliac artery stent H/O endarterectomy H/O angioplasty History of cardiac cath History of carpal tunnel release Hx of coronary artery bypass graft Family History Other Alcohol abuse Asthma Cirrhosis Colon cancer Social History Smoking Status: Former smoker tobacco type: cigarettes packs per day: 1 alcohol intake: former substance use type: denies use current occupational status: retired Travel in the last 8 weeks?: None household members: spouse housing: house marital status: caffeine: No Other Medical History Have you received the Flu Vaccine for this season: No Have you received the Pneumonia Vaccine: Yes Review of Systems Review of Systems Review of systems (narrative): 14 point review of systems performed, pertinent positives and negatives as per HPI Meds Home Medications and Allergies Home Medications ?Medication ?Instructions ?Recorded ?Confirmed ?Type albuterol sulfate 90 mcg/actuation 2 puff inhalation QIDP PRN 08/27/17 08/15/24 History aerosol inhaler (Ventolin HFA) Shortness Of Breath folic acid 1 mg tablet 1 mg PO DAILY 08/27/17 08/15/24 History fluticasone propionate 50 2 spray intranasal DAILY 08/18/22 08/15/24 History mcg/actuation nasal spray,suspension (Flonase Allergy Relief) multivitamin 1 tab PO DAILY 09/25/22 08/15/24 History spironolactone 25 mg tablet 25 mg PO DAILY 90 days #90 tabs 05/04/23 08/15/24 Rx metoprolol succinate 25 mg 25 mg PO DAILY #30 tabs 01/31/24 08/15/24 Rx tablet,extended release 24 hr atorvastatin 80 mg tablet 80 mg PO HS #30 tabs 02/05/24 08/15/24 Rx fluticasone fur. 100 mcg-umeclid 1 inh inhalation DAILY 90 days #90 04/22/24 08/15/24 Rx 62.5 mcg-vilant 25 mcg ea inhalat.powder (Trelegy Ellipta) apixaban 2.5 mg tablet (Eliquis) 2.5 mg PO BID 06/04/24 08/15/24 History mirtazapine 15 mg tablet 15 mg PO HS 08/13/24 08/15/24 History sucralfate 1 gram tablet 1 g PO BID 08/13/24 08/15/24 History montelukast 10 mg tablet 10 mg PO PM 08/15/24 08/15/24 History oxycodone 5 mg tablet 10 mg PO Q6HP PRN Severe Pain 08/15/24 08/15/24 History (Scale Score 7-10) pantoprazole 40 mg tablet,delayed 40 mg PO BID 08/15/24 08/15/24 History release New Prescriptions to Start Prescriptions: Allergies Allergy/AdvReac Type Severity Reaction Status Date / Time Penicillins Allergy Intermediate I-ITCHING; Verified 08/13/24 09:32 SWELLING Antihistamines - Ethanolamine Allergy Unknown Unknown Verified 08/13/24 09:32 allergy reaction [place] nut Allergy Rash Verified 08/13/24 09:32 doxycycline AdvReac Mild Rash Verified 08/13/24 09:32 Exam Data for Last 24 hours Vital signs and Labs for Last 24 Hours: Laboratory Results - last 24 hr 08/15/24 11:24: Sodium 137, Potassium 3.3 L, Chloride 105, Carbon Dioxide 25, Anion Gap 10.3, BUN 32 H D, Creatinine 0.90, Estimated Creat Clear 59, Estimated GFR 82, Est GFR ( Amer) 99, Glucose 138 H, Calcium 8.7, Magnesium 1.5 L, Total Bilirubin 1.0, AST 780 H* D, ALT 574 H*, Alkaline Phosphatase 67, Total Protein 6.9, Albumin 3.7, Globulin 3.2, Albumin/Globulin Ratio 1.2 I & O for Last 24 hours: Intake & Output 08/12/24 08/13/24 08/14/24 08/15/24 23:59 23:59 23:59 23:59 Weight 68.492 kg Constitutional Constitutional: mild distress, thin and chronically ill appearing *Routine HEENT Exam Head: Present normocephalic Eye: Present EOMI and PERRL ENT: Present mucous membranes moist *Routine Neck Exam Neck: Present supple; Absent lymphadenopathy *Routine Respiratory Exam Respiratory: Present CTA bilaterally *Routine Cardiovascular Exam Cardiovascular: Present RRR *Routine Abdominal Exam Abdominal: Present soft, normoactive bowel sounds and tenderness (Mainly right upper quadrant) Comments: Abdominal hernias present, no incarceration *Routine Rectal Exam Rectal:: deferred *Routine Genitalia Exam Genitalia:: deferred *Routine Extremities Exam Extremities: Absent cyanosis, clubbing or edema *Routine Skin Exam Skin: Present intact and warm; Absent rash *Routine Neurological Exam Neurological: Present alert, oriented X3 and moving all extremities; Absent altered mental status Assessment and Plan *Assessment and plan (1) Intractable nausea and vomiting: Status: Acute Category: Medical Code(s): R11.2 - Nausea with vomiting, unspecified (2) Adverse effect of chemotherapy: Status: Acute Category: Medical Code(s): T45.1X5A - Adverse effect of antineoplastic and immunosuppressive drugs, initial encounter (3) Transaminitis: Status: Acute Category: Medical Code(s): R74.01 - Elevation of levels of liver transaminase levels (4) Dehydration: Status: Acute Category: Medical Code(s): E86.0 - Dehydration (5) Small cell lung cancer: Status: Acute Category: Medical Code(s): C34.90 - Malignant neoplasm of unspecified part of unspecified bronchus or lung (6) COPD (chronic obstructive pulmonary disease): Status: Acute Category: Medical Code(s): J44.9 - Chronic obstructive pulmonary disease, unspecified (7) CAD (coronary artery disease): Status: Acute Qualifiers: Coronary Disease-Associated Artery/Lesion type: bypass graft [place] vs. transplanted heart: [place] heart Associated angina: without angina Qualified Code(s): I25.810 - Atherosclerosis of coronary artery bypass graft(s) without angina pectoris Category: Medical Code(s): I25.10 - Atherosclerotic heart disease of [place] coronary artery without angina pectoris (8) COPD (chronic obstructive pulmonary disease): Status: Acute Qualifiers: COPD type: unspecified COPD Qualified Code(s): J44.9 - Chronic obstructive pulmonary disease, unspecified Category: Medical Code(s): J44.9 - Chronic obstructive pulmonary disease, unspecified (9) Hypertension: Status: Acute Category: Medical Code(s): I10 - Essential (primary) hypertension (10) Hyperlipidemia: Status: Acute Category: Medical Code(s): E78.5 - Hyperlipidemia, unspecified Plan 79-year-old male with metastatic lung cancer who started new chemotherapy on Sunday. Had his first infusion. Developed abdominal pain, nausea, vomiting. Has become dehydrated, unable to keep food down. Presented to outpatient infusion for labs and fluids, found to have elevated liver enzymes. Discussed case with oncology, requests admission for further management of transaminitis, dehydration, intolerance of p.o. intake. I agreed to admit for further care. Initiating on antiemetics, IV pain medication, IV fluids. Labs ordered for the morning. Problems addressed as follows: intractable nausea and vomiting Adverse effect of chemotherapy Dehydration - Developed abdominal pain, nausea, vomiting after chemotherapy on Sunday. BUN elevated at 32, creatinine 0.9. Consistent with prerenal state. Liver enzymes elevated with bilirubin 1.0, AST 780, ALT 574, AST 3067. Inability to tolerate p.o. intake. - Initiate Zofran 4 mg IV every 6 hours, Phenergan 25 mg IV every 6 hours as needed for nausea and vomiting - Morphine 4 mg IV every 4 hours for severe breakthrough pain - received 2 L in infusion. Repeat CBC, CMP, magnesium ordered for the morning - Hold on further chemotherapy at this time. - Holding statin due to liver injury COPD: Continue home inhaler regimen, not in exacerbation, on room air - Continue Singulair 10 mg nightly for COPD Continue pantoprazole 40 mg twice daily and sucralfate 1 g twice daily for GERD/gastritis Continue metoprolol succinate 25 mg daily for hypertension/CAD mirtazapine 50 mg nightly for sleep disorder Full code Eliquis 2.5 mg twice daily Full liquid diet
[2024-08-15 13:18] VITALS: BP 155/72; PULSE 90; RESP 15; TEMP 36.8; O2SAT 91; BMI 24.7
[2024-08-15] MEDS: OXYCODONE 5MG IMMEDIATE RELEASE TABLET 10 MG PO (15:58)
[2024-08-15] MEDS: ONDANSETRON 4MG/2ML VIAL 4 MG IV (17:06)
[2024-08-15] MEDS: MONTELUKAST SODIUM 10MG TAB 10 MG PO (17:57)
[2024-08-15] MEDS: MORPHINE 4MG/ML SYRINGE 4 MG IV (18:10)
[2024-08-15 20:00] VITALS: BP 151/62; PULSE 80; RESP 19; TEMP 36.9; O2SAT 96
[2024-08-15] MEDS: SUCRALFATE 1GM TABLET 1 GM PO (20:03)
[2024-08-15] MEDS: APIXABAN 5MG TABLET 2.5 MG PO (20:03)
[2024-08-15] MEDS: PANTOPRAZOLE 40MG TABLET 40 MG PO (20:03)
[2024-08-15] MEDS: MIRTAZAPINE 15 MG TABLET PO (20:03)
[2024-08-16 04:00] VITALS: BP 114/49; PULSE 84; RESP 19; TEMP 36.8; O2SAT 92; BMI 25.2
[2024-08-16] MEDS: MORPHINE 4MG/ML SYRINGE 4 MG IV (04:00)
[2024-08-16] MEDS: ONDANSETRON 4MG/2ML VIAL 4 MG IV (04:00)
[2024-08-16] MEDS: FLUTICASONE/UMECLIDIN/VILANTER 100/62.5/25MCG INHALER 1 PUFF IH (06:31)
[2024-08-16 06:32] VITALS: O2SAT 95
[2024-08-16] MEDS: OXYCODONE 5MG IMMEDIATE RELEASE TABLET 10 MG PO ×3 (07:24→19:52)
[2024-08-16 08:00] VITALS: BP 117/55; PULSE 81; RESP 16; TEMP 36.7; O2SAT 97
[2024-08-16 08:00] LABS: Basophils % 0.1 % (0.1-2.0); Hematocrit 31.4 % (42.0-52.0); Lymphocytes # 0.2 K/mm3 (0.7-4.5); Lymphocytes % 3.1 % (10-50); Mean Corpuscular HGB Conc 31.8 g/dL (31.8-35.4); Mean Platelet Volume 10.8 fl (7.4-10.4); Monocytes # 0.2 K/mm3 (0.1-1.0); Monocytes % 1.9 % (1.7-9.3); Neutrophils # 7.4 K/mm3 (1.8-7.8); Neutrophils % 94.8 % (37.0-80.0); Nucleated Red Blood Cells # 0 10^3/uL; Nucleated Red Blood Cells % 0 %; Platelet Count 202 K/mm3 (142-424); Red Blood Count 3.57 M/mm3 (4.60-6.20); Red Cell Distribution Width 17.3 % (11.5-17.5); Red Cell Distribution Width-SD 56.2 fL; White Blood Count 7.8 K/mm3 (4.8-10.8)
[2024-08-16 08:05] LABS: MANUAL DIFFERENTIAL MANUAL DIFFERENTIAL (MANUAL DIFF)
[2024-08-16] MEDS: METOPROLOL SUCCINATE XL 25MG TABLET 25 MG PO (08:24)
[2024-08-16] MEDS: APIXABAN 5MG TABLET 2.5 MG PO ×2 (08:24→21:47)
[2024-08-16] MEDS: PANTOPRAZOLE 40MG TABLET 40 MG PO ×2 (08:24→21:47)
[2024-08-16] MEDS: SUCRALFATE 1GM TABLET 1 GM PO ×2 (08:24→21:47)
[2024-08-16] MEDS: PROMETHAZINE HCL 25MG/ML 1ML VIAL 25 MG IV ×2 (08:26→19:52)
[2024-08-16 08:32] LABS: Alanine Aminotransferase 387 U/L (12-78); Albumin Level 3.4 g/dl (3.5-5.0); Albumin/Globulin Ratio 1.1 (1.1-1.8); Alkaline Phosphatase 66 U/L (38-126); Anion Gap 10.6 mEq/L (5-15); Aspartate Amino Transferase 347 U/L (17-59); Bilirubin,Total 0.8 mg/dl (0.2-1.3); Blood Urea Nitrogen 34 mg/dl (9-20); Calcium 8.5 mg/dl (8.4-10.2); Carbon Dioxide 25 mmol/L (22.0-30.0); Chloride 106 mmol/L (98-107); Creatinine Clearance Estimated 61 mL/min (50-200); Estimated Glomerular Filt Rate 82 ml/min (>60); GFR (African American) 99 ML/MIN (>60); Glucose 112 mg/dl (74-100); Magnesium 1.7 mg/dl (1.6-2.3); Potassium 3.6 mmoL/L (3.5-5.1); Sodium 138 mmol/L (136-145); Total Protein,Serum 6.4 g/dl (6.3-8.2)
[2024-08-16 10:36] LABS: Lymphocytes % 6 % (10-50); Monocytes % 1 % (2-9); Neutrophils % 93 % (42-76); RBC Morphology Normal; Total Cells Counted 100
[2024-08-16 10:37] LABS: Platelet Estimate Normal
--- NOTE | 2024-08-16 12:30 | P.PN_ITS ---
Subjective *Date: 08/16/24 *Time: 12:30 Interval history: Complaining of some nausea and pain but improving. On room air. Poor p.o. intake overnight. No diarrhea. Tolerating liquids this morning for breakfast Medical Exam Vital signs and Labs for Last 24 Hours: Vital Signs Temp Pulse Resp BP Pulse Ox O2 Del Method 08/16/24 09:00 Room Air 08/16/24 08:00 Room Air 08/16/24 08:00 98.1 F 81 16 117/55 L 97 Room Air 08/16/24 06:45 Room Air 08/16/24 06:32 95 Room Air 08/16/24 05:00 Room Air 08/16/24 04:00 98.3 F 84 19 114/49 L 92 L Room Air 08/16/24 03:00 Room Air 08/16/24 00:44 Room Air 08/15/24 23:00 Room Air 08/15/24 21:00 Room Air 08/15/24 20:00 Room Air 08/15/24 20:00 98.5 F 80 19 151/62 H 96 Room Air 08/15/24 18:34 Room Air 08/15/24 17:00 Room Air 08/15/24 15:00 Room Air 08/15/24 13:18 98.2 F 90 15 155/72 H 91 L Room Air 08/15/24 13:08 Room Air Intake and Output 08/15/24 08/16/24 08/16/24 23:59 07:59 15:59 Intake Total 240 / 240 Output Total 0 / 0 0 / 0 Balance 0 / 240 240 / 240 Intake: Intake, Oral Amount 240 / 240 Output: Output, Urine Amount 0 / 0 0 / 0 Other: Number of Unmeasured Voids 1 1 Weight 71.078 kg Patient Weight 08/16/24 23:59 Weight 71.078 kg Laboratory Results - last 24 hr 08/16/24 06:55: WBC 7.8, RBC 3.57 L, Hgb 10.0 L, Hct 31.4 L, MCV 88.0, MCH 28.0, MCHC 31.8, RDW 17.3, Plt Count 202, MPV 10.8 H, Neut % (Auto) 94.8 H, Lymph % (Auto) 3.1 L, [place] % (Auto) 1.9, Eos % (Auto) 0.0 L, Baso % (Auto) 0.1, Neut # (Auto) 7.4, Lymph # (Auto) 0.2 L, [place] # (Auto) 0.2, Eos # (Auto) 0.0, Baso # (Auto) 0.0, Total Counted 100, Neutrophils % (Manual) 93 H, Lymphocytes % (Manual) 6 L, Monocytes % (Manual) 1 L, Platelet Estimate Normal, RBC Morphology Normal, Sodium 138, Potassium 3.6, Chloride 106, Carbon Dioxide 25, Anion Gap 10.6, BUN 34 H, Creatinine 0.90, Estimated Creat Clear 61, Estimated GFR 82, Est GFR ( Amer) 99, Glucose 112 H, Calcium 8.5, Magnesium 1.7 D, Total Bilirubin 0.8, AST 347 H* D, ALT 387 H*, Alkaline Phosphatase 66, Total Protein 6.4, Albumin 3.4 L, Globulin 3.0, Albumin/Globulin Ratio 1.1 I & O for Labs for Last 24 Hours: Intake & Output 08/13/24 08/14/24 08/15/24 08/16/24 23:59 23:59 23:59 23:59 Intake Total 240 / 240 Output Total 0 / 0 Balance 240 / 240 Weight 69.598 kg 71.078 kg Constitutional: Present no acute distress, thin, chronically ill appearing and cooperative Head: Present atraumatic ENT: Present normal exam Respiratory: Present normal respiratory effort; Absent respiratory distress, rhonchi, stridor, wheezes or crackles Cardiac: Present Reg Rate and Rhythm GI: Present soft, tenderness and normal bowel sounds; Absent distention or guarding Extremities: Present normal inspection and full ROM Skin: Present intact; Absent erythema Neuro: Present Grossly Intact, alert, awake, oriented x 3 and moves all extremities Assessment and Plan *Assessment and plan (1) Intractable nausea and vomiting: Status: Acute Category: Medical Code(s): R11.2 - Nausea with vomiting, unspecified (2) Adverse effect of chemotherapy: Status: Acute Category: Medical Code(s): T45.1X5A - Adverse effect of antineoplastic and immunosuppressive drugs, initial encounter (3) Transaminitis: Status: Acute Category: Medical Code(s): R74.01 - Elevation of levels of liver transaminase levels (4) Dehydration: Status: Acute Category: Medical Code(s): E86.0 - Dehydration (5) Small cell lung cancer: Status: Acute Category: Medical Code(s): C34.90 - Malignant neoplasm of unspecified part of unspecified bronchus or lung (6) COPD (chronic obstructive pulmonary disease): Status: Acute Category: Medical Code(s): J44.9 - Chronic obstructive pulmonary disease, unspecified (7) CAD (coronary artery disease): Status: Acute Qualifiers: Coronary Disease-Associated Artery/Lesion type: bypass graft [place] vs. transplanted heart: [place] heart Associated angina: without angina Qualified Code(s): I25.810 - Atherosclerosis of coronary artery bypass graft(s) without angina pectoris Category: Medical Code(s): I25.10 - Atherosclerotic heart disease of [place] coronary artery without angina pectoris (8) COPD (chronic obstructive pulmonary disease): Status: Acute Qualifiers: COPD type: unspecified COPD Qualified Code(s): J44.9 - Chronic obstructive pulmonary disease, unspecified Category: Medical Code(s): J44.9 - Chronic obstructive pulmonary disease, unspecified (9) Hypertension: Status: Acute Category: Medical Code(s): I10 - Essential (primary) hypertension (10) Hyperlipidemia: Status: Acute Category: Medical Code(s): E78.5 - Hyperlipidemia, unspecified Plan 79-year-old male with metastatic lung cancer who started new chemotherapy on Sunday. Had his first infusion. Developed abdominal pain, nausea, vomiting. Has become dehydrated, unable to keep food down. Presented to outpatient infusion for labs and fluids, found to have elevated liver enzymes. Discussed case with oncology, requests admission for further management of transaminitis, dehydration, intolerance of p.o. intake. I agreed to admit for further care. Tolerating antiemetics and pain control. No vomiting overnight. Seeing improvement labs. Continues to require inpatient management or we advance diet. Problems addressed as follows: intractable nausea and vomiting Adverse effect of chemotherapy Dehydration - Developed abdominal pain, nausea, vomiting after chemotherapy on Sunday - BUN remains elevated at 34, creatinine 0.9. AST 347, ALT 387. Improved from yesterday. - Repeat CBC, CMP, magnesium ordered for the morning -Transition to oral Zofran. 4 mg p.o. every 6 hours as needed. IV Phenergan if Zofran does not work. -Encourage oral pain control with oxycodone 5 mg as needed every 4 hours for severe breakthrough pain. Monitor for toxicity. - Holding statin due to liver injury COPD: - Continue home inhaler regimen, not in exacerbation, on room air - Continue Singulair 10 mg nightly for COPD Continue pantoprazole 40 mg twice daily and sucralfate 1 g twice daily for GERD/gastritis Continue metoprolol succinate 25 mg daily for hypertension/CAD mirtazapine 50 mg nightly for sleep disorder Full code Eliquis 2.5 mg twice daily Full liquid diet
[2024-08-16 16:00] VITALS: BP 162/80; PULSE 90; RESP 18; TEMP 36.5; O2SAT 96
[2024-08-16] MEDS: ONDANSETRON 4MG/5ML SOL UDC 4 MG PO (16:00)
[2024-08-16] MEDS: DIPHENOXYLATE/ATROPINE 2.5MG TABLET 2.5 MG PO (16:00)
--- NOTE | 2024-08-16 16:49 | PC.NURSE ---
AOX[facility], MEDICATED FOR PAIN AND N/V PER MAR. DID C/O ONE EPISODE DIARRHEA TODAY. CURRENTLY UP TO CHAIR. TOLERATING DIET WELL.
[2024-08-16] MEDS: MAGNESIUM SULFATE IN WATER 2 GM/50 ML PIGGYBACK IV ×2 (18:26→19:45)
[2024-08-16] MEDS: SODIUM CHLORIDE 0.9% 25ML BAG 25 ML IV (19:52)
[2024-08-16 20:00] VITALS: BP 138/58; PULSE 77; RESP 16; TEMP 36.5; O2SAT 94
[2024-08-16] MEDS: MONTELUKAST SODIUM 10MG TAB 10 MG PO (21:47)
[2024-08-16] MEDS: MIRTAZAPINE 15 MG TABLET PO (21:47)
[2024-08-17] VITALS: BP 171/77; PULSE 85; RESP 16; TEMP 36.4; O2SAT 95
[2024-08-17 04:00] VITALS: BP 158/80; PULSE 95; RESP 16; TEMP 37.2; O2SAT 91; BMI 24.7
[2024-08-17] MEDS: FLUTICASONE/UMECLIDIN/VILANTER 100/62.5/25MCG INHALER 1 PUFF IH (07:01)
[2024-08-17 07:59] LABS: Alanine Aminotransferase 306 U/L (12-78); Albumin Level 3.8 g/dl (3.5-5.0); Albumin/Globulin Ratio 1.2 (1.1-1.8); Alkaline Phosphatase 75 U/L (38-126); Anion Gap 11.8 mEq/L (5-15); Aspartate Amino Transferase 186 U/L (17-59); Bilirubin,Total 0.9 mg/dl (0.2-1.3); Blood Urea Nitrogen 41 mg/dl (9-20); Calcium 8.9 mg/dl (8.4-10.2); Carbon Dioxide 25 mmol/L (22.0-30.0); Chloride 105 mmol/L (98-107); Creatinine Clearance Estimated 60 mL/min (50-200); Estimated Glomerular Filt Rate 82 ml/min (>60); GFR (African American) 99 ML/MIN (>60); Globulin 3.3 g/dL (1.3-3.2); Glucose 135 mg/dl (74-100); Magnesium 2.6 mg/dl (1.6-2.3); Potassium 3.8 mmoL/L (3.5-5.1); Sodium 138 mmol/L (136-145); Total Protein,Serum 7.1 g/dl (6.3-8.2)
[2024-08-17 08:00] VITALS: BP 149/80; PULSE 60; RESP 16; TEMP 36.4; O2SAT 98
[2024-08-17 08:00] LABS: Basophils # 0.1 K/mm3 (0-0.2); Basophils % 1.6 % (0.1-2.0); Hematocrit 36.2 % (42.0-52.0); Hemoglobin 11.7 g/dL (14.1-18.0); Lymphocytes # 0.2 K/mm3 (0.7-4.5); Lymphocytes % 2.9 % (10-50); Mean Corpuscular HGB Conc 32.3 g/dL (31.8-35.4); Mean Corpuscular Hemoglobin 28.6 pg (27.0-31.2); Mean Corpuscular Volume 88.5 fl (80-94); Monocytes # 0.1 K/mm3 (0.1-1.0); Neutrophils # 5.4 K/mm3 (1.8-7.8); Neutrophils % 92.3 % (37.0-80.0); Nucleated Red Blood Cells # 0.02 10^3/uL; Nucleated Red Blood Cells % 0.3 %; Platelet Count 169 K/mm3 (142-424); Red Blood Count 4.09 M/mm3 (4.60-6.20); Red Cell Distribution Width 17.5 % (11.5-17.5); White Blood Count 5.8 K/mm3 (4.8-10.8)
[2024-08-17] MEDS: ONDANSETRON 4MG/5ML SOL UDC 4 MG PO ×2 (08:04→16:39)
[2024-08-17] MEDS: APIXABAN 5MG TABLET 2.5 MG PO ×2 (08:05→20:16)
[2024-08-17] MEDS: PANTOPRAZOLE 40MG TABLET 40 MG PO ×2 (08:05→20:17)
[2024-08-17] MEDS: METOPROLOL SUCCINATE XL 25MG TABLET 25 MG PO (08:05)
[2024-08-17] MEDS: SUCRALFATE 1GM TABLET 1 GM PO ×2 (08:05→20:16)
[2024-08-17 08:09] LABS: MANUAL DIFFERENTIAL MANUAL DIFFERENTIAL (MANUAL DIFF)
[2024-08-17] MEDS: OXYCODONE 5MG IMMEDIATE RELEASE TABLET 10 MG PO (08:09)
[2024-08-17 09:24] LABS: Eosinophils % 1 % (0-3); Lymphocytes % 9 % (10-50); Monocytes % 3 % (2-9); Neutrophils % 87 % (42-76); Total Cells Counted 100
[2024-08-17 09:25] LABS: Platelet Estimate Normal; RBC Morphology Normal
--- NOTE | 2024-08-17 11:18 | CT_ITS ---
PROCEDURE INFORMATION: Exam: CT Abdomen And Pelvis With Contrast Exam date and time: 08/17/2024 11:33 AM Age: 79 years old Clinical indication: Abdominal pain; Additional info: Worsening abdominal pain TECHNIQUE: Imaging protocol: Computed tomography of the abdomen and pelvis with contrast. Radiation optimization: All CT scans at this facility use at least one of these dose optimization techniques: automated exposure control; mA and/or kV adjustment per patient size (includes targeted exams where dose is matched to clinical indication); or iterative reconstruction. Contrast material: ISOVUE; Contrast volume: 75 ml; Contrast route: IV; COMPARISON: 1. CT ABDOMEN PELVIS W CON 04/23/2024 8:[address] CHEST WO CON 07/07/2024 1:38 PM FINDINGS: Lungs: Slight interval enlargement of the medial left lower lobe pulmonary nodule previously measuring about 7 x 5 mm and currently measuring about 7 x 8 mm. Diaphragm: Small hiatus hernia. Liver: Hepatic steatosis. There are least two and probably three new masses in the posterior right lobe of the liver measuring up to 3 cm. These masses are concerning for metastatic disease. Mild nodularity of the liver capsule. Early changes of hepatic cirrhosis can not be excluded. There is a new soft tissue nodule measuring about 12 mm adjacent to the right lobe of the liver within the peritoneum concerning for metastatic disease. Gallbladder and biliary ducts: Normal. No calcified stones. No ductal dilation. Pancreas: The pancreas is normal in appearance. No evidence of pancreatic ductal dilatation. Spleen: The spleen is normal in appearance. Adrenal glands: The adrenal glands are stable. There is stable adreniform enlargement of the left adrenal gland suggesting adrenal hyperplasia. Kidneys and ureters: There are multiple bilateral simple appearing renal cortical cysts. No evidence of hydronephrosis or nephroureteral calculi on either side. Stomach and bowel: There are multiple dilated loops of small bowel. There are distal decompressed loops of small bowel just proximal to the small bowel-colon surgical anastomosis. The findings are concerning for a high-grade small bowel obstruction. Status post right hemicolectomy. There is diverticulosis of the left hemicolon. Appendix: No evidence of appendicitis. Intraperitoneal space: Unremarkable. No free air. No significant fluid collection. 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 Status post stenting of the bilateral common iliac arteries. High-grade stenoses suspected of the origin of each renal artery. The partially imaged right femoral artery bypass appears patent. Lymph nodes: Unremarkable. No enlarged lymph nodes. Urinary bladder: The urinary bladder is normal in appearance. Reproductive: Mild prostatomegaly. Bones/joints: No acute osseous lesions. There are multilevel chronic degenerative changes throughout the visualized spine. Soft tissues: Diastasis recti. Fat containing bilateral inguinal hernias. IMPRESSION: 1. Findings concerning for high-grade small bowel obstruction. 2. New metastatic disease in the liver. Hepatic steatosis. 3. New soft tissue nodule adjacent to the right lobe of the liver in the peritoneum concerning for metastatic disease. 4. Slight interval enlargement of a left lower lobe pulmonary nodule. 5. 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 COMMENTS: Consistent with the [employer]'s Incidental Findings Committee white paper (J Am Benjie Radiol 2018): Any incidental renal lesion less than 1 cm or classified as too small to characterize, or any incidental cystic renal lesion characterized as simple-appearing, is likely benign. No follow-up imaging is recommended for these lesions per consensus recommendations based on imaging criteria.
[2024-08-17] MEDS: IOPAMIDOL-370 (76%);100ML BOTTLE 75 ML IV (11:34)
[2024-08-17] MEDS: SODIUM CHLORIDE 0.9% 10ML SYR (RAD ONLY) 10 ML IV (11:34)
[2024-08-17] MEDS: MORPHINE 4MG/ML SYRINGE 4 MG IV ×3 (12:00→20:24)
[2024-08-17 16:00] VITALS: BP 156/73; PULSE 90; RESP 14; TEMP 36.6; O2SAT 93
--- NOTE | 2024-08-17 17:18 | P.PN_ITS ---
Subjective *Date: 08/17/24 *Time: 17:23 Interval history: Stable on room air. Complaining of more abdominal distention and pain today. No bowel movement since yesterday. Denies chest pain or shortness of breath. Labs showing improvement. at bedside on exam Medical Exam Vital signs and Labs for Last 24 Hours: Vital Signs Temp Pulse Resp BP Pulse Ox O2 Del Method 08/17/24 16:46 Room Air 08/17/24 15:00 Room Air 08/17/24 12:37 Room Air 08/17/24 11:00 Room Air 08/17/24 09:00 Room Air 08/17/24 08:00 Room Air 08/17/24 08:00 97.5 F L 60 16 149/80 H 98 Room Air 08/17/24 06:39 Room Air 08/17/24 05:00 Room Air 08/17/24 04:00 99.0 F 95 H 16 158/80 H 91 L Room Air 08/17/24 02:36 Room Air 08/17/24 01:00 Room Air 08/17/24 00:00 Room Air 08/17/24 00:00 97.5 F L 85 16 171/77 H 95 Room Air 08/16/24 23:00 Room Air 08/16/24 21:00 Room Air 08/16/24 20:00 97.7 F 77 16 138/58 L 94 L Room Air 08/16/24 20:00 Room Air 08/16/24 18:11 Room Air Intake and Output 08/17/24 08/17/24 08/17/24 07:59 15:59 23:59 Intake Total 120 / 360 240 / 360 Output Total 0 / 0 0 / 0 Balance 120 / 360 240 / 360 Intake: Intake, Oral Amount 120 / 360 240 / 360 Output: Output, Urine Amount 0 / 0 0 / 0 Other: Number of Unmeasured Voids 1 0 Weight 69.944 kg Patient Weight 08/17/24 23:59 Weight 69.944 kg Laboratory Results - last 24 hr 08/17/24 07:15: WBC 5.8 D, RBC 4.09 L, Hgb 11.7 L, Hct 36.2 L, MCV 88.5, MCH 28.6, MCHC 32.3, RDW 17.5, Plt Count 169, MPV 11.0 H, Neut % (Auto) 92.3 H, Lymph % (Auto) 2.9 L, [place] % (Auto) 1.0 L, Eos % (Auto) 0.0 L, Baso % (Auto) 1.6, Neut # (Auto) 5.4, Lymph # (Auto) 0.2 L, [place] # (Auto) 0.1, Eos # (Auto) 0.0, Baso # (Auto) 0.1, Total Counted 100, Neutrophils % (Manual) 87 H, Lymphocytes % (Manual) 9 L, Monocytes % (Manual) 3, Eosinophils % (Manual) 1, Platelet Estimate Normal, RBC Morphology Normal, Sodium 138, Potassium 3.8, Chloride 105, Carbon Dioxide 25, Anion Gap 11.8, BUN 41 H, Creatinine 0.90, Estimated Creat Clear 60, Estimated GFR 82, Est GFR ( Amer) 99, Glucose 135 H, Calcium 8.9, Magnesium 2.6 H D, Total Bilirubin 0.9, AST 186 H D, ALT 306 H*, Alkaline Phosphatase 75, Total Protein 7.1, Albumin 3.8 D, Globulin 3.3 H, Albumin/Globulin Ratio 1.2 I & O for Labs for Last 24 Hours: Intake & Output 08/14/24 08/15/24 08/16/24 08/17/24 23:59 23:59 23:59 23:59 Intake Total 560 / 680 360 / 360 Output Total 0 / 0 0 / 0 Balance 560 / 680 360 / 360 Weight 69.598 kg 71.078 kg 69.944 kg Constitutional: Present mild distress, thin, chronically ill appearing and cooperative Head: Present atraumatic ENT: Present normal exam Respiratory: Present rhonchi and normal respiratory effort; Absent respiratory distress, stridor, wheezes or crackles Cardiac: Present Reg Rate and Rhythm GI: Present soft, distention, tenderness (Diffuse, nonfocal) and diminished bowel sounds; Absent guarding Comments:: Ventral hernia reducible Extremities: Present normal inspection and full ROM Skin: Present intact; Absent erythema Neuro: Present Grossly Intact, alert, awake, oriented x 3 and moves all extremities Assessment and Plan *Assessment and plan (1) Ileus: Status: Acute Category: Medical Code(s): K56.7 - Ileus, unspecified (2) Intractable nausea and vomiting: Status: Acute Category: Medical Code(s): R11.2 - Nausea with vomiting, unspecified (3) Adverse effect of chemotherapy: Status: Acute Category: Medical Code(s): T45.1X5A - Adverse effect of antineoplastic and immunosuppressive drugs, initial encounter (4) Transaminitis: Status: Acute Category: Medical Code(s): R74.01 - Elevation of levels of liver transaminase levels (5) Dehydration: Status: Acute Category: Medical Code(s): E86.0 - Dehydration (6) Small cell lung cancer: Status: Acute Category: Medical Code(s): C34.90 - Malignant neoplasm of unspecified part of unspecified bronchus or lung (7) COPD (chronic obstructive pulmonary disease): Status: Acute Category: Medical Code(s): J44.9 - Chronic obstructive pulmonary disease, unspecified (8) CAD (coronary artery disease): Status: Acute Qualifiers: Associated angina: without angina Coronary Disease-Associated Artery/Lesion type: bypass graft [place] vs. transplanted heart: [place] heart Qualified Code(s): I25.810 - Atherosclerosis of coronary artery bypass graft(s) without angina pectoris Category: Medical Code(s): I25.10 - Atherosclerotic heart disease of [place] coronary artery without angina pectoris (9) COPD (chronic obstructive pulmonary disease): Status: Acute Qualifiers: COPD type: unspecified COPD Qualified Code(s): J44.9 - Chronic ob structive pulmonary disease, unspecified Category: Medical Code(s): J44.9 - Chronic obstructive pulmonary disease, unspecified (10) Hypertension: Status: Acute Category: Medical Code(s): I10 - Essential (primary) hypertension (11) Hyperlipidemia: Status: Acute Category: Medical Code(s): E78.5 - Hyperlipidemia, unspecified Plan 79-year-old male with metastatic lung cancer who started new chemotherapy on Sunday. Had his first infusion. Developed abdominal pain, nausea, vomiting. Has become dehydrated, unable to keep food down. Presented to outpatient infusion for labs and fluids, found to have elevated liver enzymes. Discussed case with oncology, requests admission for further management of transaminitis, dehydration, intolerance of p.o. intake. I agreed to admit for further care. Has developed ileus over the past 24 hours. More abdominal distention. N.p.o. at this time. Will monitor overnight. Continues to require inpatient management. Problems addressed as follows: Ileus intractable nausea and vomiting, resolved Adverse effect of chemotherapy Dehydration - Developed abdominal pain, nausea, vomiting after chemotherapy on 08/13/2024 -Liver enzymes improving with bilirubin 0.9, AST 186, ALT 306, alk phos 75. Kidney function stable BUN 41, creatinine 0.9 -CT abdomen pelvis obtained due to distention and pain. Found to have ileus with no santos transition point. Will initiate bowel rest. Holding on NG unless he develops further nausea and vomiting. -Encouraged ambulation to promote bowel movements. -Continue Zofran 4 mg IV as needed every 6 hours for nausea or vomiting -Resume IV morphine for pain, monitor for toxicity with parenterally controlled substance - Holding statin due to liver injury COPD: - Continue home inhaler regimen, not in exacerbation, on room air - Continue Singulair 10 mg nightly for COPD Continue pantoprazole 40 mg twice daily and sucralfate 1 g twice daily for GERD/gastritis Continue metoprolol succinate 25 mg daily for hypertension/CAD mirtazapine 50 mg nightly for sleep disorder Full code Eliquis 2.5 mg twice daily N.p.o.
--- NOTE | 2024-08-17 17:40 | PC.NURSE ---
AMBULATED IN HALLWAY MULTIPLE TIMES THIS SHIFT. WAS MEDICATED FOR PAIN AND NAUSEA PER JUN.
[2024-08-17 20:00] VITALS: BP 162/84; PULSE 91; RESP 16; TEMP 36.3; O2SAT 92
[2024-08-17] MEDS: MONTELUKAST SODIUM 10MG TAB 10 MG PO (20:16)
[2024-08-17] MEDS: MIRTAZAPINE 15 MG TABLET PO (20:17)
[2024-08-17] MEDS: ONDANSETRON 4MG/2ML VIAL 4 MG IV (20:24)
--- NOTE | 2024-08-17 21:09 | PC.NURSE ---
patient c/o pain and nausea - morphine and zofran administered, emesis bag at bedside
[2024-08-18 04:00] VITALS: BP 132/70; PULSE 101; RESP 16; TEMP 36.7; O2SAT 91
[2024-08-18] MEDS: FLUTICASONE/UMECLIDIN/VILANTER 100/62.5/25MCG INHALER 1 PUFF IH (06:14)
[2024-08-18] MEDS: ONDANSETRON 4MG/2ML VIAL 4 MG IV ×2 (06:41→20:45)
[2024-08-18] MEDS: MORPHINE 4MG/ML SYRINGE 4 MG IV (06:41)
[2024-08-18 07:23] LABS: Basophils # 0.1 K/mm3 (0-0.2); Basophils % 1.5 % (0.1-2.0); Hematocrit 39.7 % (42.0-52.0); Hemoglobin 12.4 g/dL (14.1-18.0); Lymphocytes # 0.1 K/mm3 (0.7-4.5); Mean Corpuscular HGB Conc 31.2 g/dL (31.8-35.4); Mean Corpuscular Hemoglobin 28.8 pg (27.0-31.2); Mean Corpuscular Volume 92.1 fl (80-94); Mean Platelet Volume 11.1 fl (7.4-10.4); Monocytes # 0.1 K/mm3 (0.1-1.0); Monocytes % 3.7 % (1.7-9.3); Neutrophils # 2.9 K/mm3 (1.8-7.8); Neutrophils % 89.3 % (37.0-80.0); Nucleated Red Blood Cells # 0 10^3/uL; Nucleated Red Blood Cells % 0 %; Platelet Count 152 K/mm3 (142-424); Red Blood Count 4.31 M/mm3 (4.60-6.20); Red Cell Distribution Width 18.2 % (11.5-17.5); Red Cell Distribution Width-SD 60.5 fL; White Blood Count 3.2 K/mm3 (4.8-10.8)
[2024-08-18 07:26] LABS: MANUAL DIFFERENTIAL MANUAL DIFFERENTIAL (MANUAL DIFF)
[2024-08-18 07:34] LABS: Albumin Level 4.1 g/dl (3.5-5.0); Chloride 104 mmol/L (98-107); Potassium 4.2 mmoL/L (3.5-5.1); Sodium 137 mmol/L (136-145)
[2024-08-18 07:37] LABS: Alanine Aminotransferase 229 U/L (12-78); Albumin/Globulin Ratio 1.4 (1.1-1.8); Alkaline Phosphatase 92 U/L (38-126); Anion Gap 18.2 mEq/L (5-15); Aspartate Amino Transferase 132 U/L (17-59); Bilirubin,Total 1.4 mg/dl (0.2-1.3); Blood Urea Nitrogen 46 mg/dl (9-20); Calcium 8.9 mg/dl (8.4-10.2); Carbon Dioxide 19 mmol/L (22.0-30.0); Creatinine Clearance Estimated 55 mL/min (50-200); Estimated Glomerular Filt Rate 65 ml/min (>60); GFR (African American) 78 ML/MIN (>60); Glucose 150 mg/dl (74-100); Total Protein,Serum 7.1 g/dl (6.3-8.2)
[2024-08-18 07:58] LABS: Lymphocytes % 2 % (10-50); Monocytes % 3 % (2-9); Neutrophils % 95 % (42-76)
[2024-08-18 07:59] LABS: Platelet Estimate Normal; RBC Morphology Normal
[2024-08-18 08:00] VITALS: BP 150/84; PULSE 105; RESP 18; TEMP 36.7; O2SAT 93
[2024-08-18 08:08] LABS: Magnesium 2.3 mg/dl (1.6-2.3); Phosphorous 2.7 mg/dl (2.5-4.5)
[2024-08-18 08:38] LABS: Total Cells Counted 100
[2024-08-18] MEDS: SUCRALFATE 1GM TABLET 1 GM PO (08:47)
[2024-08-18] MEDS: METOPROLOL SUCCINATE XL 25MG TABLET 25 MG PO (08:47)
[2024-08-18] MEDS: PANTOPRAZOLE 40MG TABLET 40 MG PO (08:48)
[2024-08-18] MEDS: APIXABAN 5MG TABLET 2.5 MG PO (08:48)
[2024-08-18] MEDS: CALCIUM POLYCARBOPHIL 625MG TAB 1250 MG PO (08:49)
[2024-08-18 11:23] VITALS: BMI 24.7
[2024-08-18] MEDS: OXYCODONE 5MG IMMEDIATE RELEASE TABLET 10 MG PO (11:23)
[2024-08-18] MEDS: BISACODYL 10MG SUPP 10 MG RC (11:35)
--- NOTE | 2024-08-18 15:46 | EXP.ACUTE.PN ---
Subjective *Date: 08/18/24 *Time: 22:30 Interval history: Continuing to have significant abdominal pain this morning. Discussed placing NG, patient and spouse requested no placement this morning. Encouraged ambulation. Having nausea, no santos emesis. Afebrile. Mild confusion this morning Medical Exam Vital signs and Labs for Last 24 Hours: Vital Signs Temp Pulse Resp BP Pulse Ox O2 Del Method O2 Flow Rate 08/18/24 14:47 Nasal Cannula 2 08/18/24 13:00 Nasal Cannula 2 08/18/24 11:00 Nasal Cannula 2 08/18/24 08:00 Nasal Cannula 2 08/18/24 08:00 98.0 F 105 H 18 150/84 H 93 L Nasal Cannula 2 08/18/24 07:59 Room Air 08/18/24 07:59 Room Air 08/18/24 06:05 Room Air 08/18/24 05:00 Room Air 08/18/24 04:00 98.0 F 101 H 16 132/70 91 L Room Air 08/18/24 03:00 Room Air 08/18/24 01:00 Room Air 08/18/24 00:00 Room Air 08/17/24 23:00 Room Air 08/17/24 21:00 Room Air 08/17/24 20:00 97.4 F L 91 H 16 162/84 H 92 L Room Air 08/17/24 20:00 Room Air 08/17/24 18:47 Room Air 08/17/24 16:46 Room Air 08/17/24 16:00 97.9 F 90 14 156/73 H 93 L Room Air Intake and Output 08/17/24 08/18/24 08/18/24 23:59 07:59 15:59 Intake Total 240 / 240 0 / 240 Output Total 0 / 0 0 / 0 Balance 0 / 600 240 / 240 0 / 240 Intake: Intake, Oral Amount 240 / 240 0 / 240 Output: Output, Urine Amount 0 / 0 0 / 0 Other: Number of Unmeasured Voids 1 2 Weight 69.94 kg Patient Weight 08/18/24 23:59 Weight 69.94 kg Laboratory Results - last 24 hr 08/18/24 06:37: WBC 3.2 L D, RBC 4.31 L, Hgb 12.4 L, Hct 39.7 L, MCV 92.1, MCH 28.8, MCHC 31.2 L, RDW 18.2 H, Plt Count 152, MPV 11.1 H, Neut % (Auto) 89.3 H, Lymph % (Auto) 4.0 L, [place] % (Auto) 3.7, Eos % (Auto) 0.0 L, Baso % (Auto) 1.5, Neut # (Auto) 2.9, Lymph # (Auto) 0.1 L, [place] # (Auto) 0.1, Eos # (Auto) 0.0, Baso # (Auto) 0.1, Total Counted 100, Neutrophils % (Manual) 95 H, Lymphocytes % (Manual) 2 L, Monocytes % (Manual) 3, Platelet Estimate Normal, RBC Morphology Normal, Sodium 137, Potassium 4.2, Chloride 104, Carbon Dioxide 19 L, Anion Gap 18.2 H, BUN 46 H, Creatinine 1.10 D, Estimated Creat Clear 55, Estimated GFR 65, Est GFR ( Amer) 78 D, Glucose 150 H, Calcium 8.9, Phosphorus 2.7, Magnesium 2.3 D, Total Bilirubin 1.4 H, AST 132 H D, ALT 229 H D, Alkaline Phosphatase 92, Total Protein 7.1, Albumin 4.1, Globulin 3.0, Albumin/Globulin Ratio 1.4 I & O for Labs for Last 24 Hours: Intake & Output 08/15/24 08/16/24 08/17/24 08/18/24 23:59 23:59 23:59 23:59 Intake Total 560 / 680 360 / 600 240 / 240 Output Total 0 / 0 0 / 0 0 / 0 Balance 560 / 680 360 / 600 240 / 240 Weight 69.598 kg 71.078 kg 69.944 kg 69.94 kg Constitutional: Present mild distress, thin, chronically ill appearing and cooperative Head: Present atraumatic ENT: Present normal exam Respiratory: Present rhonchi and normal respiratory effort; Absent respiratory distress, stridor, wheezes or crackles Cardiac: Present Reg Rate and Rhythm GI: Present soft, distention, tenderness (Diffuse, nonfocal) and diminished bowel sounds; Absent guarding, rebound or rigidity Comments:: Ventral hernia reducible Extremities: Present normal inspection and full ROM Skin: Present intact; Absent erythema Neuro: Present Grossly Intact, alert, awake, oriented x 3 and moves all extremities Assessment and Plan *Assessment and plan (1) Ileus: Status: Acute Category: Medical Code(s): K56.7 - Ileus, unspecified (2) Intractable nausea and vomiting: Status: Acute Category: Medical Code(s): R11.2 - Nausea with vomiting, unspecified (3) Adverse effect of chemotherapy: Status: Acute Category: Medical Code(s): T45.1X5A - Adverse effect of antineoplastic and immunosuppressive drugs, initial encounter (4) Transaminitis: Status: Acute Category: Medical Code(s): R74.01 - Elevation of levels of liver transaminase levels (5) Dehydration: Status: Acute Category: Medical Code(s): E86.0 - Dehydration (6) Small cell lung cancer: Status: Acute Category: Medical Code(s): C34.90 - Malignant neoplasm of unspecified part of unspecified bronchus or lung (7) COPD (chronic obstructive pulmonary disease): Status: Acute Category: Medical Code(s): J44.9 - Chronic obstructive pulmonary disease, unspecified (8) CAD (coronary artery disease): Status: Acute Qualifiers: Associated angina: without angina Coronary Disease-Associated Artery/Lesion type: bypass graft [place] vs. transplanted heart: [place] heart Qualified Code(s): I25.810 - Atherosclerosis of coronary artery bypass graft(s) without angina pectoris Category: Medical Code(s): I25.10 - Atherosclerotic heart disease of [place] coronary artery without angina pectoris (9) COPD (chronic obstructive pulmonary disease): Status: Acute Qualifiers: COPD type: unspecified COPD Qualified Code(s): J44.9 - Chronic obstructive pulmonary disease, unspecified Category: Medical Code(s): J44.9 - Chronic obstructive pulmonary disease, unspecified (10) Hypertension: Status: Acute Category: Medical Code(s): I10 - Essential (primary) hypertension (11) Hyperlipidemia: Status: Acute Category: Medical Code(s): E78.5 - Hyperlipidemia, unspecified Plan 79-year-old male with metastatic lung cancer who started new chemotherapy on Sunday. Had his first infusion. Developed abdominal pain, nausea, vomiting. Has become dehydrated, unable to keep food down. Presented to outpatient infusion for labs and fluids, found to have elevated liver enzymes. Discussed case with oncology, requests admission for further management of transaminitis, dehydration, intolerance of p.o. intake. I agreed to admit for further care. Ileus persisting. Continues to require inpatient management. Problems addressed as follows: Ileus intractable nausea and vomiting, resolved Adverse effect of chemotherapy Dehydration - Developed abdominal pain, nausea, vomiting after chemotherapy on 08/13/2024 - Liver enzymes with some improvement, bilirubin 1.4, AST 132, ALT 229. Kidney function stable with BUN 46, creatinine 1.1. - CT abdomen pelvis obtained due to distention and pain. Found to have ileus with no santos transition point. Continue bowel rest, if no improvement, reevaluate placement of NG later. - Encouraged ambulation to promote bowel movements. -Continue Zofran 4 mg IV as needed every 6 hours for nausea or vomiting - Discontinue opiates, transition to Toradol IV 30 mg every 6 hours as needed - Holding statin due to liver injury COPD: - Continue home inhaler regimen, not in exacerbation, on room air - Continue Singulair 10 mg nightly for COPD Continue pantoprazole 40 mg twice daily and sucralfate 1 g twice daily for GERD/gastritis Continue metoprolol succinate 25 mg daily for hypertension/CAD mirtazapine 50 mg nightly for sleep disorder Full code Eliquis 2.5 mg twice daily N.p.o.
[2024-08-18 16:00] VITALS: BP 111/95; PULSE 103; RESP 16; O2SAT 96
[2024-08-18] MEDS: LACTATED RINGERS 1000ML 1,000 ML 125 ML IV (16:21)
--- NOTE | 2024-08-18 16:55 | PC.NURSE ---
PT IS RESTING IN CHAIR. ALERT AND ORIENTED X3 WITH SOME INTERMITTENT CONFUSION. PT HAS AMBULATED TO THE BATHROOM AND IN THE LI. LUNG SOUNDS DIMINISHED. ABDOMEN FIRM/TENDER WITH HYPOACTIVE BOWEL SOUNDS. PASSING FLATUS. MEDICATED PER MAR FOR ABDOMINAL DISCOMFORT. WILL CONTINUE TO MONITOR.
[2024-08-18 20:00] VITALS: BP 166/98; PULSE 107; RESP 17; TEMP 36.8; O2SAT 92
--- NOTE | 2024-08-18 20:44 | XR_ITS ---
PROCEDURE INFORMATION: Exam: XR Chest Exam date and time: 08/18/2024 8:45 PM Age: 79 years old Clinical indication: Device placement; Ng tube; Additional info: Ngt placement confirmation TECHNIQUE: Imaging protocol: Radiologic exam of the chest. Views: 1 view. COMPARISON: CT CHEST WO CON 07/07/2024 1:38 PM FINDINGS: Tubes, catheters and devices: Nasogastric tube projected over left upper quadrant. Lungs: Poorly defined left hilar consolidative mass. Pleural spaces: Unremarkable. No pleural effusion. No pneumothorax. Heart/Mediastinum: Unremarkable. No cardiomegaly. Bones/joints: Unremarkable. IMPRESSION: 1. Nasogastric tube grossly in place. 2. Left hilar mass.
--- NOTE | 2024-08-18 21:07 | PC.NURSE ---
patient was c/o extreme abd tenderness and pain to palpation around 1999. Hospitalist notified and at bedside. NGT inserted in left nare with immediate bloody, foul smelling output instant 500ml+. CXR obtained for placement. intermittent LWS ordered. VS changed to q2 to monitor pressures.
--- NOTE | 2024-08-18 21:49 | XR_ITS ---
PROCEDURE INFORMATION: Exam: XR Chest Exam date and time: 08/18/2024 10:07 PM Age: 79 years old Clinical indication: Device placement; Ng tube; Additional info: Ngt placement confirmation - pulled 1st one out TECHNIQUE: Imaging protocol: Radiologic exam of the chest. Views: 1 view. COMPARISON: CR XR CHEST PORTABLE 08/18/2024 8:45 PM FINDINGS: Tubes, catheters and devices: Nasogastric tube tip projected over mid stomach. Lungs: Unremarkable. No consolidation. Pleural spaces: Unremarkable. No pleural effusion. No pneumothorax. Heart/Mediastinum: Unremarkable. No cardiomegaly. Bones/joints: Unremarkable. Other findings: Left hilar consolidative. IMPRESSION: 1. Nasogastric tube grossly in place. 2. Left hilar.
--- NOTE | 2024-08-18 21:49 | PC.NURSE ---
jhonny pulled out NGT. reinserted new NGT. CXR ordered for placement.
[2024-08-18] MEDS: PANTOPRAZOLE 40MG VIAL 40 MG IV (21:59)
[2024-08-18 22:00] VITALS: BP 146/72; PULSE 72; RESP 18; O2SAT 92
[2024-08-18 23:57] VITALS: BP 150/87; PULSE 107; RESP 18; TEMP 36.5; O2SAT 92
[2024-08-19] VITALS (9 sets, daily range): BP systolic 131–179; BP diastolic 45–86; PULSE 77–110; RESP 16–18; TEMP 36.3–36.9; O2SAT 92–98; BMI 23.6
[2024-08-19 00:43] LABS: Basophils % 1.5 % (0.1-2.0); Hematocrit 37.7 % (42.0-52.0); Lymphocytes # 0.1 K/mm3 (0.7-4.5); Lymphocytes % 5.3 % (10-50); Mean Corpuscular HGB Conc 31.8 g/dL (31.8-35.4); Mean Corpuscular Hemoglobin 28.3 pg (27.0-31.2); Mean Corpuscular Volume 88.9 fl (80-94); Mean Platelet Volume 10.8 fl (7.4-10.4); Monocytes # 0.1 K/mm3 (0.1-1.0); Monocytes % 6.3 % (1.7-9.3); Neutrophils # 1.8 K/mm3 (1.8-7.8); Neutrophils % 86.4 % (37.0-80.0); Nucleated Red Blood Cells # 0 10^3/uL; Nucleated Red Blood Cells % 0 %; Platelet Count 117 K/mm3 (142-424); Red Blood Count 4.24 M/mm3 (4.60-6.20); Red Cell Distribution Width 17.7 % (11.5-17.5); Red Cell Distribution Width-SD 57.1 fL; White Blood Count 2.1 K/mm3 (4.8-10.8)
[2024-08-19 00:47] LABS: Chloride 103 mmol/L (98-107); Potassium 4.1 mmoL/L (3.5-5.1); Sodium 136 mmol/L (136-145)
--- NOTE | 2024-08-19 00:48 | EXP.EVENT.NO ---
Notified by bedside nurse at shift change that patient had distinctly distended abdomen with episode of vomiting with feculent smell. NG tube placed with return of maroon-colored output. Eliquis held given likelihood of GI bleed. Patient also developed hypoxia likely secondary to aspiration with vomiting event. Ceftriaxone Flagyl initiated. Patient Faina penicillin but tolerated Zosyn previously. Was discharged recently on cefdinir. Likely okay for cephalosporin dosing. Patient placed on Ventimask with improvement in oxygen saturation. No distress noted.
[2024-08-19 00:49] LABS: MANUAL DIFFERENTIAL MANUAL DIFFERENTIAL (MANUAL DIFF)
[2024-08-19 00:50] LABS: Anion Gap 12.1 mEq/L (5-15); Blood Urea Nitrogen 60 mg/dl (9-20); Carbon Dioxide 25 mmol/L (22.0-30.0); Creatinine Clearance Estimated 46 mL/min (50-200); Estimated Glomerular Filt Rate 53 ml/min (>60); GFR (African American) 65 ML/MIN (>60)
[2024-08-19 00:51] LABS: Calcium 8.5 mg/dl (8.4-10.2); Glucose 150 mg/dl (74-100)
[2024-08-19] MEDS: METRONIDAZ/SOD CHL 500 MG/100 ML PIGGYBACK 100 MG IV ×2 (01:45→12:17)
[2024-08-19] MEDS: CEFTRIAXONE SODIUM 2 GM in 0.9 % SODIUM CHLORIDE 100 ML IV (01:45)
[2024-08-19 02:03] LABS: Lymphocytes % 24 % (10-50); Neutrophils % 76 % (42-76); Total Cells Counted 50
[2024-08-19 02:04] LABS: Platelet Estimate Normal
[2024-08-19 02:05] LABS: Acanthocytes 1+; Ovalocytes 1+
[2024-08-19] MEDS: FLUTICASONE/UMECLIDIN/VILANTER 100/62.5/25MCG INHALER 1 PUFF IH (06:05)
[2024-08-19 06:35] LABS: Basophils % 2.6 % (0.1-2.0); Hematocrit 33.3 % (42.0-52.0); Hemoglobin 10.8 g/dL (14.1-18.0); Lymphocytes # 0.1 K/mm3 (0.7-4.5); Lymphocytes % 3.8 % (10-50); Mean Corpuscular HGB Conc 32.4 g/dL (31.8-35.4); Mean Corpuscular Hemoglobin 28.2 pg (27.0-31.2); Mean Corpuscular Volume 86.9 fl (80-94); Mean Platelet Volume 11.8 fl (7.4-10.4); Monocytes # 0.1 K/mm3 (0.1-1.0); Monocytes % 3.2 % (1.7-9.3); Neutrophils # 1.4 K/mm3 (1.8-7.8); Neutrophils % 89.8 % (37.0-80.0); Nucleated Red Blood Cells # 0 10^3/uL; Nucleated Red Blood Cells % 0 %; Platelet Count 100 K/mm3 (142-424); Red Blood Count 3.83 M/mm3 (4.60-6.20); Red Cell Distribution Width 17.6 % (11.5-17.5); Red Cell Distribution Width-SD 55.9 fL
[2024-08-19 06:37] LABS: Albumin Level 3.3 g/dl (3.5-5.0); Chloride 104 mmol/L (98-107)
[2024-08-19 06:38] LABS: Potassium 4.1 mmoL/L (3.5-5.1); Sodium 137 mmol/L (136-145)
[2024-08-19 06:40] LABS: Blood Urea Nitrogen 62 mg/dl (9-20); Creatinine Clearance Estimated 44 mL/min (50-200); Estimated Glomerular Filt Rate 53 ml/min (>60); GFR (African American) 65 ML/MIN (>60)
[2024-08-19 06:41] LABS: Alanine Aminotransferase 155 U/L (12-78); Albumin/Globulin Ratio 1.1 (1.1-1.8); Alkaline Phosphatase 93 U/L (38-126); Anion Gap 12.1 mEq/L (5-15); Aspartate Amino Transferase 111 U/L (17-59); Bilirubin,Total 2.6 mg/dl (0.2-1.3); Calcium 8.5 mg/dl (8.4-10.2); Carbon Dioxide 25 mmol/L (22.0-30.0); Globulin 2.9 g/dL (1.3-3.2); Glucose 144 mg/dl (74-100); Total Protein,Serum 6.2 g/dl (6.3-8.2)
[2024-08-19 07:30] LABS: Magnesium 2.4 mg/dl (1.6-2.3)
[2024-08-19 08:01] LABS: White Blood Count 1.6 K/mm3 (4.8-10.8)
--- NOTE | 2024-08-19 09:06 | XR_ITS ---
FINAL REPORT CLINICAL HISTORY: NG tube placement COMPARISON: 03/06/2023 FINDINGS: A single supine view of the abdomen was obtained. An NG tube is present in the stomach. Dilated small bowel loops are noted in the abdomen and pelvis which could represent ileus or small bowel obstruction. There are no pathologic calcifications. Osseous structures are within normal limits. IMPRESSION: NG tube in the stomach. Possible ileus or small bowel obstruction. Reviewed, Interpreted and Dictated by Yas Coe MD Transcribed by Nichelle Pearson Authenticated and [facility]
[2024-08-19] MEDS: PANTOPRAZOLE 40MG VIAL 40 MG IV ×2 (09:47→21:45)
[2024-08-19] MEDS: SODIUM CHLORIDE 0.9% 10ML VIAL 10 ML IV ×2 (09:47→21:45)
--- NOTE | 2024-08-19 11:05 | XR_ITS ---
FINAL REPORT CLINICAL HISTORY: hypoxia 70% COMPARISON: 08/18/2024 FINDINGS: A portable view of the chest was obtained. Patient is status post median sternotomy. The heart is stable. NG tube courses below the diaphragm. Left hilar masslike opacity is unchanged. There is slight increase in the right basilar opacity, favor atelectasis. There is no effusion or pneumothorax. IMPRESSION: Slight increase in right basilar opacity, favor atelectasis. No change in left hilar masslike opacity. Reviewed, Interpreted and Dictated by Yas Coe MD Transcribed by Bernadette Nolasco Authenticated and [facility]
[2024-08-19 12:08] LABS: Adenovirus,PCR Not Detected (NotDetected); Bordetella Pertussis Not Detected (NotDetected); Chlamydophila Pneumoniae, PCR Not Detected (NotDetected); Coronavirus 19, PCR Not Detected (NotDetected); Coronavirus 229E Not Detected (NotDetected); Coronavirus NL63 Not Detected (NotDetected); Coronavirus OC43 Not Detected (NotDetected); Coronovirus HKU1,PCR Not Detected (NotDetected); Human Metapneumovirus Not Detected (NotDetected); Influenza A, PCR Not Detected (NotDetected); Influenza AH1, 2009 Not Detected (NotDetected); Influenza AH1, PCR Not Detected (NotDetected); Influenza AH3,PCR Not Detected (NotDetected); Influenza B, PCR Not Detected (NotDetected); Mycoplasma Pneumoniae, PCR Not Detected (NotDetected); Parainfluenza 1, PCR Not Detected (NotDetected); Parainfluenza 2, PCR Not Detected (NotDetected); Parainfluenza 3, PCR Not Detected (NotDetected); Parainfluenza 4, PCR Not Detected (NotDetected); Respiratory Syncytial Virus Not Detected (NotDetected); Rhinovirus/Enterovirus Not Detected (NotDetected)
--- NOTE | 2024-08-19 13:19 | EXP.GE.CONS ---
History of Present Illness *Admission Date: 08/15/24 *History of present illness: Mr. Alonso is a 79-year-old gentleman who has been admitted for high-grade small bowel obstruction. 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 The patient states that his present symptoms began after his round of chemotherapy on Sunday and he developed abdominal distention, abdominal cramps, nausea and vomiting. Oncology reached out for hospital admission. CBC today shows leukopenia with white blood cell count of 1.6 and stable hemoglobin/hematocrit. Liver chemistries have been elevated and more so with total bilirubin 2.6 (from 0.9 on 08/17), ALT 155, AST 111 and alkaline phosphatase 93. The patient had been seen by Alicia WOLFE in the office in April for evaluation of his liver findings. The patient does report having right hemicolectomy here at [facility] in 2022 due to right sided ischemic colitis. Since his hospital admission he has had no bowel movements. He did have NG suction but family wanted this removed. He does have a long history of GERD. [facility] Disclaimer: The information contained in this section may have been updated after the patient was seen, as this information can be updated by other users. Medical History Debris in left ear canal Cholesteatoma of left external auditory canal Hypotension Small cell lung cancer Fatigue Aortic stenosis Organizing pneumonia Lung nodule seen on imaging study Primary lung cancer Pre-procedure lab exam Pneumonia Fungal ear infection Impacted cerumen, bilateral Hearing Loss PAD (peripheral artery disease) COPD (chronic obstructive pulmonary disease) CAD (coronary artery disease) Vasculopathy Coagulopathy Type 2 MS (myocardial infarction) Acute blood loss anemia Acute upper gastrointestinal bleeding Nausea vomiting and diarrhea Respiratory failure Sepsis C. difficile colitis Pain around toenail, left foot Incurved toenail Nonhealing nonsurgical wound Hearing loss, bilateral Paroxysmal atrial fibrillation Ischemic colitis Hyperlipidemia Hypertension Cecum perforation PVD (peripheral vascular disease) Non-healing wound Abnormal ankle brachial index (JUSTICE) Claudication Chronic cough Allergic rhinitis COPD exacerbation Lung nodule Smoking greater than 30 pack years Hemoptysis Dyspnea on exertion COPD mixed type Laceration of right ear canal Impacted cerumen H/O: lung cancer Abdominal bruit Cardiac murmur Claudication Smoker Peripheral arterial disease Carotid artery disease Surgical History History of esophagogastroduodenoscopy (EGD) S/P right hemicolectomy S/P femoral-popliteal bypass surgery Status post insertion of iliac artery stent H/O endarterectomy H/O angioplasty History of cardiac cath History of carpal tunnel release Hx of coronary artery bypass graft Family History Other Alcohol abuse Asthma Cirrhosis Colon cancer Social History Smoking Status: Former smoker tobacco type: cigarettes packs per day: 1 alcohol intake: former substance use type: denies use current occupational status: retired Travel in the last 8 weeks?: None household members: spouse housing: house marital status: caffeine: No Have you lived/traveled outside US in past 30 days?: No Contact w/someone who lives/traveled outside US past 30 days?: No Exposure to someone with infectious disease in past 14 days?: No Do you have a fever (greater than 100.4 F or 38 C)?: No Have you tested positive for COVID-19?: No Exposed to someone with COVID-19 in past 14 days?: No Do you have a sore throat?: No Do you have a cough?: No Do you have any weakness?: No Do you have any diarrhea?: No Are you experiencing any unusual bleeding?: No Do you have any muscle aches/pain?: No Do you have any abdominal pain?: No Are you experiencing loss of taste or smell?: No Meds Home Medications and Allergies Home Medications ?Medication ?Instructions ?Recorded ?Confirmed ?Type albuterol sulfate 90 mcg/actuation 2 puff inhalation QIDP PRN 08/27/17 08/15/24 History aerosol inhaler (Ventolin HFA) Shortness Of Breath folic acid 1 mg tablet 1 mg PO DAILY 08/27/17 08/15/24 History fluticasone propionate 50 2 spray intranasal DAILY 08/18/22 08/15/24 History mcg/actuation nasal spray,suspension (Flonase Allergy Relief) multivitamin 1 tab PO DAILY 09/25/22 08/15/24 History spironolactone 25 mg tablet 25 mg PO DAILY 90 days #90 tabs 05/04/23 08/15/24 Rx metoprolol succinate 25 mg 25 mg PO DAILY #30 tabs 01/31/24 08/15/24 Rx tablet,extended release 24 hr atorvastatin 80 mg tablet 80 mg PO HS #30 tabs 02/05/24 08/15/24 Rx fluticasone fur. 100 mcg-umeclid 1 inh inhalation DAILY 90 days #90 04/22/24 08/15/24 Rx 62.5 mcg-vilant 25 mcg ea inhalat.powder (Trelegy Ellipta) apixaban 2.5 mg tablet (Eliquis) 2.5 mg PO BID 06/04/24 08/15/24 History mirtazapine 15 mg tablet 15 mg PO HS 08/13/24 08/15/24 History sucralfate 1 gram tablet 1 g PO BID 08/13/24 08/15/24 History montelukast 10 mg tablet 10 mg PO PM 08/15/24 08/15/24 History oxycodone 5 mg tablet 10 mg PO Q6HP PRN Severe Pain 08/15/24 08/15/24 History (Scale Score 7-10) pantoprazole 40 mg tablet,delayed 40 mg PO BID 08/15/24 08/15/24 History release New Prescriptions to Start Prescriptions: Allergies Allergy/AdvReac Type Severity Reaction Status Date / Time Penicillins Allergy Intermediate I-ITCHING; Verified 08/13/24 09:32 SWELLING Antihistamines - Ethanolamine Allergy Unknown Unknown Verified 08/13/24 09:32 allergy reaction [place] nut Allergy Rash Verified 08/13/24 09:32 doxycycline AdvReac Mild Rash Verified 08/13/24 09:32 Exam (Inpt) Vital signs and Labs for Last 24 Hours: Temp Pulse Resp BP Pulse Ox O2 Del Method O2 Flow Rate 97.6 F 77 17 135/45 L 97 Venturi Mask 15 08/19/24 06:08/19/24 10:00 08/19/24 10:00 08/19/24 10:00 08/19/24 10:00 08/19/24 11:00 08/19/24 10:00 FiO2 50 08/19/24 06:06 Laboratory Results - last 24 hr 08/19/24 00:36: WBC 2.1 L D, RBC 4.24 L, Hgb 12.0 L, Hct 37.7 L, MCV 88.9, MCH 28.3, MCHC 31.8, RDW 17.7 H, Plt Count 117 L, MPV 10.8 H, Neut % (Auto) 86.4 H, Lymph % (Auto) 5.3 L, [place] % (Auto) 6.3, Eos % (Auto) 0.0 L, Baso % (Auto) 1.5, Neut # (Auto) 1.8, Lymph # (Auto) 0.1 L, [place] # (Auto) 0.1, Eos # (Auto) 0.0, Baso # (Auto) 0.0, Total Counted 50, Neutrophils % (Manual) 76, Lymphocytes % (Manual) 24, Platelet Estimate Normal, Ovalocytes 1+, Acanthocytes (Spur) 1+, Sodium 136, Potassium 4.1, Chloride 103, Carbon Dioxide 25, Anion Gap 12.1, BUN 60 H D, Creatinine 1.30 H, Estimated Creat Clear 46, Estimated GFR 53 L, Est GFR ( Amer) 65, Glucose 150 H, Calcium 8.5 08/19/24 05:45: WBC 1.6 L*, RBC 3.83 L, Hgb 10.8 L, Hct 33.3 L, MCV 86.9, MCH 28.2, MCHC 32.4, RDW 17.6 H, Plt Count 100 L, MPV 11.8 H, Neut % (Auto) 89.8 H, Lymph % (Auto) 3.8 L, [place] % (Auto) 3.2, Eos % (Auto) 0.0 L, Baso % (Auto) 2.6 H, Neut # (Auto) 1.4 L, Lymph # (Auto) 0.1 L, [place] # (Auto) 0.1, Eos # (Auto) 0.0, Baso # (Auto) 0.0, Sodium 137, Potassium 4.1, Chloride 104, Carbon Dioxide 25, Anion Gap 12.1, BUN 62 H, Creatinine 1.30 H, Estimated Creat Clear 44, Estimated GFR 53 L, Est GFR ( Amer) 65, Glucose 144 H, Calcium 8.5, Magnesium 2.4 H, Total Bilirubin 2.6 H, AST 111 H, ALT 155 H D, Alkaline Phosphatase 93, Total Protein 6.2 L, Albumin 3.3 L D, Globulin 2.9, Albumin/Globulin Ratio 1.1 I & O for Labs for Last 24 Hours: Intake & Output 08/16/24 08/17/24 08/18/24 08/19/24 23:59 23:59 23:59 23:59 Intake Total 560 / 680 360 / 600 1240 / 1240 Output Total 0 / 0 0 / 0 900 / 900 0 / 0 Balance 560 / 680 360 / 600 340 / 340 0 / 0 Weight 156 lb 11.2 oz 154 lb 3.2 oz 154 lb 3.061 oz 146 lb 14.4 oz Comments:: Hide posterior tympanic bowel sounds mildly hyperactive Results Labs 08/19/24 05:45 08/19/24 05:45 Labs: Laboratory Results - last 24 hr 08/19/24 00:36: WBC 2.1 L D, RBC 4.24 L, Hgb 12.0 L, Hct 37.7 L, MCV 88.9, MCH 28.3, MCHC 31.8, RDW 17.7 H, Plt Count 117 L, MPV 10.8 H, Neut % (Auto) 86.4 H, Lymph % (Auto) 5.3 L, [place] % (Auto) 6.3, Eos % (Auto) 0.0 L, Baso % (Auto) 1.5, Neut # (Auto) 1.8, Lymph # (Auto) 0.1 L, [place] # (Auto) 0.1, Eos # (Auto) 0.0, Baso # (Auto) 0.0, Total Counted 50, Neutrophils % (Manual) 76, Lymphocytes % (Manual) 24, Platelet Estimate Normal, Ovalocytes 1+, Acanthocytes (Spur) 1+, Sodium 136, Potassium 4.1, Chloride 103, Carbon Dioxide 25, Anion Gap 12.1, BUN 60 H D, Creatinine 1.30 H, Estimated Creat Clear 46, Estimated GFR 53 L, Est GFR ( Amer) 65, Glucose 150 H, Calcium 8.5 08/19/24 05:45: WBC 1.6 L*, RBC 3.83 L, Hgb 10.8 L, Hct 33.3 L, MCV 86.9, MCH 28.2, MCHC 32.4, RDW 17.6 H, Plt Count 100 L, MPV 11.8 H, Neut % (Auto) 89.8 H, Lymph % (Auto) 3.8 L, [place] % (Auto) 3.2, Eos % (Auto) 0.0 L, Baso % (Auto) 2.6 H, Neut # (Auto) 1.4 L, Lymph # (Auto) 0.1 L, [place] # (Auto) 0.1, Eos # (Auto) 0.0, Baso # (Auto) 0.0, Sodium 137, Potassium 4.1, Chloride 104, Carbon Dioxide 25, Anion Gap 12.1, BUN 62 H, Creatinine 1.30 H, Estimated Creat Clear 44, Estimated GFR 53 L, Est GFR ( Amer) 65, Glucose 144 H, Calcium 8.5, Magnesium 2.4 H, Total Bilirubin 2.6 H, AST 111 H, ALT 155 H D, Alkaline Phosphatase 93, Total Protein 6.2 L, Albumin 3.3 L D, Globulin 2.9, Albumin/Globulin Ratio 1.1 Assessment and Plan *Assessment and plan (1) Small bowel obstruction: Status: Acute Category: Medical Code(s): K56.609 - Unspecified intestinal obstruction, unspecified as to partial versus complete obstruction Plan 1. Small bowel obstruction. The CAT scan showed high-grade obstruction with decompressed loops of lower small bowel. I would favor small bowel obstruction over ileus. The patient has not yet had a bowel movement. I would consider glycerin suppository from below to see if we can yield any movement. I would recommend surgical consultation. The patient does have advanced metastatic cancer with high comorbidities and may not be a good candidate for surgery but if the patient were to develop more progressive small bowel obstruction, would then need surgical management. I think for now would manage conservatively. I would consider water-soluble barium small bowel series as well but will await surgical recommendations.
[2024-08-19] MEDS: 0.9 % SODIUM CHLORIDE 1000ML 1,000 ML 75 ML IV (13:31)
--- NOTE | 2024-08-19 14:03 | P.CONS_ITS ---
History of Present Illness *Admission Date: 08/15/24 *Reason for visit:: Small bowel obstruction *History of present illness: Patient is a 79-year-old male who is known to the surgical service in the past. He has a history of hypertension, hyperlipidemia, chronic arterial occlusive disease, coronary artery disease with previous CABG, COPD, history of lung cancer (small cell diagnosed August 2021), hyperlipidemia, hypertension, carotid artery disease, history of atrial fibrillation, moderate aortic stenosis. He underwent emergent laparotomy with right hemicolectomy by Dr. Servando Dasilva on 03/07/2023 for significant ischemic colitis. He did have prolonged convalescence after that procedure and had issues with C. difficile colitis and ultimately development of complex abdominal hernias managed expectantly. 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 He underwent chemotherapy last week and developed some abdominal distention, abdominal cramping, nausea, and vomiting. He was found to have elevation of liver function tests and leukopenia. 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 He was admitted on 08/15/2024, 5 days ago. He has had some increasing abdominal pain and distention. He had initially declined nasogastric tube. Overnight patient had progressively distended abdomen with vomiting of feculent liquid. Finally nasogastric tube was placed. There was concern for possible aspiration and he was started on antibiotics. There was also some bloody drainage from the nasogastric tube. Gastroenterology saw the patient in consultation. Plain film imaging today reveals nasogastric tube in good position with findings of possible ileus versus obstruction. Surgical consultation was placed this afternoon. . [facility] Disclaimer: The information contained in this section may have been updated after the patient was seen, as this information can be updated by other users. Medical History Debris in left ear canal Cholesteatoma of left external auditory canal Hypotension Small cell lung cancer Fatigue Aortic stenosis Organizing pneumonia Lung nodule seen on imaging study Primary lung cancer Pre-procedure lab exam Pneumonia Fungal ear infection Impacted cerumen, bilateral Hearing Loss PAD (peripheral artery disease) COPD (chronic obstructive pulmonary disease) CAD (coronary artery disease) Vasculopathy Coagulopathy Type 2 FL (myocardial infarction) Acute blood loss anemia Acute upper gastrointestinal bleeding Nausea vomiting and diarrhea Respiratory failure Sepsis C. difficile colitis Pain around toenail, left foot Incurved toenail Nonhealing nonsurgical wound Hearing loss, bilateral Paroxysmal atrial fibrillation Ischemic colitis Hyperlipidemia Hypertension Cecum perforation PVD (peripheral vascular disease) Non-healing wound Abnormal ankle brachial index (JUSTICE) Claudication Chronic cough Allergic rhinitis COPD exacerbation Lung nodule Smoking greater than 30 pack years Hemoptysis Dyspnea on exertion COPD mixed type Laceration of right ear canal Impacted cerumen H/O: lung cancer Abdominal bruit Cardiac murmur Claudication Smoker Peripheral arterial disease Carotid artery disease Surgical History History of esophagogastroduodenoscopy (EGD) S/P right hemicolectomy S/P femoral-popliteal bypass surgery Status post insertion of iliac artery stent H/O endarterectomy H/O angioplasty History of cardiac cath History of carpal tunnel release Hx of coronary artery bypass graft Family History Other Alcohol abuse Asthma Cirrhosis Colon cancer Social History Smoking Status: Former smoker tobacco type: cigarettes packs per day: 1 alcohol intake: former substance use type: denies use current occupational status: retired Travel in the last 8 weeks?: None household members: spouse housing: house marital status: caffeine: No Have you lived/traveled outside US in past 30 days?: No Contact w/someone who lives/traveled outside US past 30 days?: No Exposure to someone with infectious disease in past 14 days?: No Do you have a fever (greater than 100.4 F or 38 C)?: No Have you tested positive for COVID-19?: No Exposed to someone with COVID-19 in past 14 days?: No Do you have a sore throat?: No Do you have a cough?: No Do you have any weakness?: No Do you have any diarrhea?: No Are you experiencing any unusual bleeding?: No Do you have any muscle aches/pain?: No Do you have any abdominal pain?: No Are you experiencing loss of taste or smell?: No Meds Home Medications and Allergies Home Medications ?Medication ?Instructions ?Recorded ?Confirmed ?Type albuterol sulfate 90 mcg/actuation 2 puff inhalation QIDP PRN 08/27/17 08/15/24 History aerosol inhaler (Ventolin HFA) Shortness Of Breath folic acid 1 mg tablet 1 mg PO DAILY 08/27/17 08/15/24 History fluticasone propionate 50 2 spray intranasal DAILY 08/18/22 08/15/24 History mcg/actuation nasal spray,suspension (Flonase Allergy Relief) multivitamin 1 tab PO DAILY 09/25/22 08/15/24 History spironolactone 25 mg tablet 25 mg PO DAILY 90 days #90 tabs 05/04/23 08/15/24 Rx metoprolol succinate 25 mg 25 mg PO DAILY #30 tabs 01/31/24 08/15/24 Rx tablet,extended release 24 hr atorvastatin 80 mg tablet 80 mg PO HS #30 tabs 02/05/24 08/15/24 Rx fluticasone fur. 100 mcg-umeclid 1 inh inhalation DAILY 90 days #90 04/22/24 08/15/24 Rx 62.5 mcg-vilant 25 mcg ea inhalat.powder (Trelegy Ellipta) apixaban 2.5 mg tablet (Eliquis) 2.5 mg PO BID 06/04/24 08/15/24 History mirtazapine 15 mg tablet 15 mg PO HS 08/13/24 08/15/24 History sucralfate 1 gram tablet 1 g PO BID 08/13/24 08/15/24 History montelukast 10 mg tablet 10 mg PO PM 08/15/24 08/15/24 History oxycodone 5 mg tablet 10 mg PO Q6HP PRN Severe Pain 08/15/24 08/15/24 History (Scale Score 7-10) pantoprazole 40 mg tablet,delayed 40 mg PO BID 08/15/24 08/15/24 History release New Prescriptions to Start Prescriptions: Allergies Allergy/AdvReac Type Severity Reaction Status Date / Time Penicillins Allergy Intermediate I-ITCHING; Verified 08/13/24 09:32 SWELLING Antihistamines - Ethanolamine Allergy Unknown Unknown Verified 08/13/24 09:32 allergy reaction [place] nut Allergy Rash Verified 08/13/24 09:32 doxycycline AdvReac Mild Rash Verified 08/13/24 09:32 Exam (Inpt) Vital signs and Labs for Last 24 Hours: Temp Pulse Resp BP Pulse Ox O2 Del Method O2 Flow Rate 97.6 F 77 17 135/45 L 97 Venturi Mask 15 08/19/24 06:00 08/19/24 10:00 08/19/24 10:00 08/19/24 10:00 08/19/24 10:00 08/19/24 13:00 08/19/24 10:00 FiO2 50 08/19/24 06:06 Laboratory Results - last 24 hr 08/19/24 00:36: WBC 2.1 L D, RBC 4.24 L, Hgb 12.0 L, Hct 37.7 L, MCV 88.9, MCH 28.3, MCHC 31.8, RDW 17.7 H, Plt Count 117 L, MPV 10.8 H, Neut % (Auto) 86.4 H, Lymph % (Auto) 5.3 L, [place] % (Auto) 6.3, Eos % (Auto) 0.0 L, Baso % (Auto) 1.5, Neut # (Auto) 1.8, Lymph # (Auto) 0.1 L, [place] # (Auto) 0.1, Eos # (Auto) 0.0, Baso # (Auto) 0.0, Total Counted 50, Neutrophils % (Manual) 76, Lymphocytes % (Manual) 24, Platelet Estimate Normal, Ovalocytes 1+, Acanthocytes (Spur) 1+, Sodium 136, Potassium 4.1, Chloride 103, Carbon Dioxide 25, Anion Gap 12.1, BUN 60 H D, Creatinine 1.30 H, Estimated Creat Clear 46, Estimated GFR 53 L, Est GFR ( Amer) 65, Glucose 150 H, Calcium 8.5 08/19/24 05:45: WBC 1.6 L*, RBC 3.83 L, Hgb 10.8 L, Hct 33.3 L, MCV 86.9, MCH 28.2, MCHC 32.4, RDW 17.6 H, Plt Count 100 L, MPV 11.8 H, Neut % (Auto) 89.8 H, Lymph % (Auto) 3.8 L, [place] % (Auto) 3.2, Eos % (Auto) 0.0 L, Baso % (Auto) 2.6 H , Neut # (Auto) 1.4 L, Lymph # (Auto) 0.1 L, [place] # (Auto) 0.1, Eos # (Auto) 0.0, Baso # (Auto) 0.0, Sodium 137, Potassium 4.1, Chloride 104, Carbon Dioxide 25, Anion Gap 12.1, BUN 62 H, Creatinine 1.30 H, Estimated Creat Clear 44, E stimated GFR 53 L, Est GFR ( Amer) 65, Glucose 144 H, Calcium 8.5, M agnesium 2.4 H, Total Bilirubin 2.6 H, AST 111 H, ALT 155 H D, Alkaline Phosphatase 93, Total Protein 6.2 L, Albumin 3.3 L D, Globulin 2.9, Albumin/Globulin Ratio 1.1 I & O for Labs for Last 24 Hours: Intake & Output 08/17/24 08/18/24 08/19/24 08/20/24 11:59 11:59 11:59 11:59 Intake Total 680 / 680 240 / 240 1000 / 1000 Output Total 0 / 0 0 / 0 900 / 900 Balance 680 / 680 240 / 240 100 / 100 Weight 154 lb 3.2 oz 154 lb 3.061 oz 146 lb 14.4 oz Constitutional: chronically ill appearing Respiratory: Present decreased breath sounds Cardiac: Present Reg Rate and Rhythm Comments:: Abdomen is distended. Large midline hernia. Extensive abdominal scarring from previous laparotomy. Diffusely tender with guarding and rebound. Rectal (male): Present deferred (male): Present normal inspection Results Labs 08/19/24 05:45 08/19/24 05:45 Labs: Laboratory Results - last 24 hr 08/19/24 00:36: WBC 2.1 L D, RBC 4.24 L, Hgb 12.0 L, Hct 37.7 L, MCV 88.9, MCH 28.3, MCHC 31.8, RDW 17.7 H, Plt Count 117 L, MPV 10.8 H, Neut % (Auto) 86.4 H, Lymph % (Auto) 5.3 L, [place] % (Auto) 6.3, Eos % (Auto) 0.0 L, Baso % (Auto) 1.5, Neut # (Auto) 1.8, Lymph # (Auto) 0.1 L, [place] # (Auto) 0.1, Eos # (Auto) 0.0, Baso # (Auto) 0.0, Total Counted 50, Neutrophils % (Manual) 76, Lymphocytes % (Manual) 24, Platelet Estimate Normal, Ovalocytes 1+, Acanthocytes (Spur) 1+, Sodium 136, Potassium 4.1, Chloride 103, Carbon Dioxide 25, Anion Gap 12.1, BUN 60 H D, Creatinine 1.30 H, Estimated Creat Clear 46, Estimated GFR 53 L, Est GFR ( Amer) 65, Glucose 150 H, Calcium 8.5 08/19/24 05:45: WBC 1.6 L*, RBC 3.83 L, Hgb 10.8 L, Hct 33.3 L, MCV 86.9, MCH 28.2, MCHC 32.4, RDW 17.6 H, Plt Count 100 L, MPV 11.8 H, Neut % (Auto) 89.8 H, Lymph % (Auto) 3.8 L, [place] % (Auto) 3.2, Eos % (Auto) 0.0 L, Baso % (Auto) 2.6 H , Neut # (Auto) 1.4 L, Lymph # (Auto) 0.1 L, [place] # (Auto) 0.1, Eos # (Auto) 0.0, Baso # (Auto) 0.0, Sodium 137, Potassium 4.1, Chloride 104, Carbon Dioxide 25, Anion Gap 12.1, BUN 62 H, Creatinine 1.30 H, Estimated Creat Clear 44, E stimated GFR 53 L, Est GFR ( Amer) 65, Glucose 144 H, Calcium 8.5, M agnesium 2.4 H, Total Bilirubin 2.6 H, AST 111 H, ALT 155 H D, Alkaline Phosphatase 93, Total Protein 6.2 L, Albumin 3.3 L D, Globulin 2.9, Albumin/Globulin Ratio 1.1 Assessment and Plan *Assessment and plan (1) Small bowel obstruction: Status: Acute Category: Medical Code(s): K56.609 - Unspecified intestinal obstruction, unspecified as to partial versus complete obstruction Plan Patient requires urgent operative intervention due to findings on examination consistent with peritonitis. This peritonitis may be secondary to high-grade vs. complete bowel obstruction (either from adhesions or prior laparotomy) or mesenteric ischemia. With patient's current medical comorbidities, history of complex abdominal wall issues after prior laparotomy, extensive mesenteric vascular disease, probable liver cirrhosis, and metastatic disease to the abdomen, he is beyond the capabilities of adequate treatment at this facility and I recommend immediate initiation of transfer expeditiously. Prognosis is poor and morbidity and mortality is quite high even with surgical intervention.
--- NOTE | 2024-08-19 17:27 | CT_ITS ---
PROCEDURE INFORMATION: Exam: CT Abdomen And Pelvis With Contrast Exam date and time: 08/19/2024 9:38 PM Age: 79 years old Clinical indication: Other: F/u sbo TECHNIQUE: Imaging protocol: Computed tomography of the abdomen and pelvis with contrast. Radiation optimization: All CT scans at this facility use at least one of these dose optimization techniques: automated exposure control; mA and/or kV adjustment per patient size (includes targeted exams where dose is matched to clinical indication); or iterative reconstruction. Contrast material: ISOVUE; Contrast volume: 75 ml; Contrast route: IV; COMPARISON: CT ABDOMEN PELVIS W CON 08/17/2024 11:33 AM FINDINGS: Liver: Similar, scattered inferior right hepatic lobe hypodense lesions. Diffuse fatty liver infiltration. Gallbladder and biliary ducts: Debris and/or tiny calculi. No wall thickening. Pancreas: Normal. No ductal dilation. Spleen: Normal. No splenomegaly. Adrenal glands: Normal. No mass. Kidneys and ureters: Similar bilateral renal cysts. No nephroureterolithiasis. No hydronephrosis. Stomach and bowel: Fluid-filled distended stomach and multiple dilated loops of small bowel with relative transition to decompressed bowel loops in lower mid abdomen. Also minimal contrast transit beyond this point (series 4, image [id number]). Postoperative colon. Sigmoid colonic diverticula without pericolonic fat stranding. Appendix: No evidence of appendicitis. Intraperitoneal space: Similar peritoneal nodule measuring 1.1 cm adjacent to liver. Vasculature: Atherosclerotic calcification of aortoiliac, superior mesenteric, celiac, proximal renal arteries without aneurysm. Lymph nodes: Unremarkable. No enlarged lymph nodes. Urinary bladder: Unremarkable as visualized. Reproductive: Unremarkable as visualized. Bones/joints: Unremarkable. No acute fracture. Soft tissues: Unremarkable. IMPRESSION: 1. Similar high-grade small bowel obstructive pattern with suspected transition point in mid lower abdomen showing minimal contrast transit beyond this point. 2. Similar hepatic metastases and adjacent peritoneal nodule. COMMENTS: Consistent with the [employer]'s Incidental Findings Committee white paper (J Am Benjie Radiol 2018): Any incidental renal lesion less than 1 cm or classified as too small to characterize, or any incidental cystic renal lesion characterized as simple-appearing, is likely benign. No follow-up imaging is recommended for these lesions per consensus recommendations based on imaging criteria.
--- NOTE | 2024-08-19 17:27 | CT_ITS ---
PROCEDURE INFORMATION: Exam: CT Chest With Contrast; Diagnostic Exam date and time: 08/19/2024 9:38 PM Age: 79 years old Clinical indication: Other: Hypoxia TECHNIQUE: Imaging protocol: Diagnostic computed tomography of the chest with contrast. Radiation optimization: All CT scans at this facility use at least one of these dose optimization techniques: automated exposure control; mA and/or kV adjustment per patient size (includes targeted exams where dose is matched to clinical indication); or iterative reconstruction. Contrast material: ISOVUE; Contrast volume: 75 ml; Contrast route: IV; COMPARISON: CT CHEST WO CON 07/07/2024 1:38 PM FINDINGS: Lungs: New tree-in-bud nodular opacities in right posterior lung base. Modestly larger existing left pulmonary nodules with largest nodule measuring 1.0 x 1.3 from 0.8 x 1.1 cm. Poorly defined left hilar peribronchial postoperative scarring and fibrosis. Underlying emphysematous changes throughout both lungs. Similar left posterior apical scarring. Pleural spaces: Unremarkable. No pneumothorax. No pleural effusion. Heart: Unremarkable. No cardiomegaly. No pericardial effusion. Lymph nodes: Mediastinal and hilar lymph nodes with largest lymph node in subcarinal station measuring 3.0 x 1.7 cm essentially stable. Vasculature: No central or segmental pulmonary arterial intraluminal filling defect identified. Bones/joints: Unremarkable. No acute fracture. Soft tissues: Unremarkable. IMPRESSION: 1. No central or segmental pulmonary arterial embolism identified. 2. New infectious/inflammatory left basilar tree-in-bud peribronchial nodular infiltration. 3. Larger existing pulmonary metastases. Stable lymphadenopathy.
[2024-08-19] MEDS: ONDANSETRON 4MG/2ML VIAL 4 MG IV (18:42)
--- NOTE | 2024-08-19 19:00 | HMH.ITSTN ---
2nd floor called & said all gastro was given to pt. scan to be completed in 2 hours
[2024-08-19] MEDS: DIATRIZOATE MEG 66% & DIATRIZOATE NA 10% 30ML UDC 120 ML NG-TUBE (19:10)
--- NOTE | 2024-08-19 20:45 | P.PN_ITS ---
Subjective *Date: 08/19/24 *Time: 20:45 Interval history: Seems to have worsened SBO today, increased distention with rebound tenderness today. General surgery very concerned about peritonitis, recommended transfer. Pending CT abdomen/pelvis with oral contrast and will follow-up back with transfer center. Exam Data for Last 24 hours Vital signs and Labs for Last 24 Hours: Temp Pulse Resp BP Pulse Ox O2 Del Method O2 Flow Rate 98.4 F 86 18 131/55 L 95 Venturi Mask 15 08/19/24 20:00 08/19/24 20:00 08/19/24 20:00 08/19/24 20:00 08/19/24 20:00 08/19/24 20:00 08/19/24 20:00 FiO2 50 08/19/24 06:06 Laboratory Results - last 24 hr 08/19/24 00:36: WBC 2.1 L D, RBC 4.24 L, Hgb 12.0 L, Hct 37.7 L, MCV 88.9, MCH 28.3, MCHC 31.8, RDW 17.7 H, Plt Count 117 L, MPV 10.8 H, Neut % (Auto) 86.4 H, Lymph % (Auto) 5.3 L, [place] % (Auto) 6.3, Eos % (Auto) 0.0 L, Baso % (Auto) 1.5, Neut # (Auto) 1.8, Lymph # (Auto) 0.1 L, [place] # (Auto) 0.1, Eos # (Auto) 0.0, Baso # (Auto) 0.0, Total Counted 50, Neutrophils % (Manual) 76, Lymphocytes % (Manual) 24, Platelet Estimate Normal, Ovalocytes 1+, Acanthocytes (Spur) 1+, Sodium 136, Potassium 4.1, Chloride 103, Carbon Dioxide 25, Anion Gap 12.1, BUN 60 H D, Creatinine 1.30 H, Estimated Creat Clear 46, Estimated GFR 53 L, Est GFR ( Amer) 65, Glucose 150 H, Calcium 8.5 08/19/24 05:45: WBC 1.6 L*, RBC 3.83 L, Hgb 10.8 L, Hct 33.3 L, MCV 86.9, MCH 28.2, MCHC 32.4, RDW 17.6 H, Plt Count 100 L, MPV 11.8 H, Neut % (Auto) 89.8 H, Lymph % (Auto) 3.8 L, [place] % (Auto) 3.2, Eos % (Auto) 0.0 L, Baso % (Auto) 2.6 H , Neut # (Auto) 1.4 L, Lymph # (Auto) 0.1 L, [place] # (Auto) 0.1, Eos # (Auto) 0.0, Baso # (Auto) 0.0, Sodium 137, Potassium 4.1, Chloride 104, Carbon Dioxide 25, Anion Gap 12.1, BUN 62 H, Creatinine 1.30 H, Estimated Creat Clear 44, Estimated GFR 53 L, Est GFR ( Amer) 65, Glucose 144 H, Calcium 8.5, Magnesium 2.4 H, Total Bilirubin 2.6 H, AST 111 H, ALT 155 H D, Alkaline Phosphatase 93, Total Protein 6.2 L, Albumin 3.3 L D, Globulin 2.9, Albumin/Globulin Ratio 1.1 08/19/24 12:05: Chlamy pneumoniae PCR Not detected, Adenovirus (PCR) Not detected, B. pertussis DNA (PCR) Not detected, Coronavirus OC43 (PCR) Not detected, Coronavirus HKU1 (PCR) Not detected, Coronavirus 229E (PCR) Not detected, SARS-CoV-2 (PCR) Not detected, Coronavirus NL63 (PCR) Not detected, Human Metapneumovir PCR Not detected, Influenza A (H1) PCR Not detected, Influ A (H1N1/09) PCR Not detected, Influenza A (H3) PCR Not detected, Influenza Type A (PCR) Not detected, Influenza Type B (PCR) Not detected, M. pneumoniae (PCR) Not detected, Parainfluenza 1 (PCR) Not detected, Parainfluenza 2 (PCR) Not detected, Parainfluenza 3 (PCR) Not detected, Parainfluenza 4 (PCR) Not detected, RSV (PCR) Not detected, Entero/Rhino (PCR) Not detected 08/19/24 18:45: Lactate 3.0 H I & O for Last 24 hours: Intake & Output 08/16/24 08/17/24 08/18/24 08/19/24 23:59 23:59 23:59 23:59 Intake Total 560 / 680 360 / 600 1240 / 1240 Output Total 0 / 0 0 / 0 900 / 900 475 / 475 Balance 560 / 680 360 / 600 340 / 340 -475 / -475 Weight 71.078 kg 69.944 kg 69.94 kg 66.633 kg Constitutional Constitutional: no acute distress *Routine HEENT Exam Head: Present normocephalic Eye: Present EOMI and PERRL ENT: Present mucous membranes moist *Routine Neck Exam Neck: Present supple; Absent lymphadenopathy *Routine Respiratory Exam Respiratory: Present CTA bilaterally *Routine Cardiovascular Exam Cardiovascular: Present RRR *Routine Abdominal Exam Abdominal: Present soft, normoactive bowel sounds, tenderness, distended and rebound; Absent guarding Comments: Moderate rebound tenderness especially in the left upper and lower quadrants. *Routine Extremities Exam Extremities: Absent cyanosis, clubbing or edema *Routine Skin Exam Skin: Present warm; Absent rash *Routine Neurological Exam Neurological: Present alert and oriented X3 Assessment and Plan *Assessment and plan (1) Ileus: Status: Acute Category: Medical Code(s): K56.7 - Ileus, unspecified (2) Intractable nausea and vomiting: Status: Acute Category: Medical Code(s): R11.2 - Nausea with vomiting, unspecified (3) Adverse effect of chemotherapy: Status: Acute Category: Medical Code(s): T45.1X5A - Adverse effect of antineoplastic and immunosuppressive drugs, initial encounter (4) Transaminitis: Status: Acute Category: Medical Code(s): R74.01 - Elevation of levels of liver transaminase levels (5) Dehydration: Status: Acute Category: Medical Code(s): E86.0 - Dehydration (6) Small cell lung cancer: Status: Acute Category: Medical Code(s): C34.90 - Malignant neoplasm of unspecified part of unspecified bronchus or lung (7) COPD (chronic obstructive pulmonary disease): Status: Acute Category: Medical Code(s): J44.9 - Chronic obstructive pulmonary disease, unspecified (8) CAD (coronary artery disease): Status: Acute Qualifiers: Coronary Disease-Associated Artery/Lesion type: bypass graft [place]ol[place] vs. transplanted heart: [place] heart Associated angina: without angina Qualified Code(s): I25.810 - Atherosclerosis of coronary artery bypass graft(s) without angina pectoris Category: Medical Code(s): I25.10 - Atherosclerotic heart disease of [place] coronary artery without angina pectoris (9) COPD (chronic obstructive pulmonary disease): Status: Acute Qualifiers: COPD type: unspecified COPD Qualified Code(s): J44.9 - Chronic obstructive pulmonary disease, unspecified Category: Medical Code(s): J44.9 - Chronic obstructive pulmonary disease, unspecified (10) Hypertension: Status: Acute Category: Medical Code(s): I10 - Essential (primary) hypertension (11) Hyperlipidemia: Status: Acute Category: Medical Code(s): E78.5 - Hyperlipidemia, unspecified Plan 79-year-old male with metastatic lung cancer who started new chemotherapy on Sunday. Had his first infusion. Developed abdominal pain, nausea, vomiting. Has become dehydrated, unable to keep food down. Presented to outpatient infusion for labs and fluids, found to have elevated liver enzymes. Discussed case with oncology, requests admission for further management of transaminitis, dehydration, intolerance of p.o. intake. I agreed to admit for further care. Ileus persisting. Continues to require inpatient management. Problems addressed as follows: SBO Peritonitis intractable nausea and vomiting, resolved Adverse effect of chemotherapy Dehydration - Developed abdominal pain, nausea, vomiting after chemotherapy on 08/13/2024 ? CT abdomen/pelvis suggestive of SBO. Patient had fecal containing emesis overnight, requiring NG tube placement and suctioning. Also requiring Ventimask in the setting of NG tube for possible aspiration event. ? Today, patient has exam findings consistent with peritonitis, including moderate rebound tenderness. Vital signs stable, no fevers or leukocytosis. ? Continue cefepime, metronidazole for peritonitis. ? Discussed extensively with surgery today, they recommend transfer to tertiary center for further evaluation management of SBO and peritonitis. Discussed extensively with patient, though he understands the gravity of the situation and states he has had enough he does not want to pursue surgical intervention at this time if possible. ? Discussed extensively with [facility] center Dr. Nails, surgical oncology, and [facility] surgery team who recommended CT abdomen/pelvis with oral contrast to further evaluate for SBO and transition point. They have low suspicion for cancer burden within the colon as likelihood of lung cancer metastasizing to colon is low. ? Follow-up CT abdomen/pelvis with IV and oral contrast, CT chest. ? Follow-up with [facility] center after scans are done and PowerShared to them. ? At this time, patient has a high likelihood of to clinical decompensation from SBO, peritonitis, and possible impending perforation. COPD: - Continue home inhaler regimen, not in exacerbation, on room air - Continue Singulair 10 mg nightly for COPD Continue pantoprazole 40 mg twice daily and sucralfate 1 g twice daily for GERD/gastritis Continue metoprolol succinate 25 mg daily for hypertension/CAD mirtazapine 50 mg nightly for sleep disorder Full code Hold anticoagulation possible surgery N.p.o. except ice [employer]
--- NOTE | 2024-08-19 21:31 | PC.NURSE ---
Patient left floor with staff for CT at 21:30.
[2024-08-19] MEDS: SUCRALFATE 1GM TABLET 1 GM PO (21:45)
[2024-08-19] MEDS: MONTELUKAST SODIUM 10MG TAB 10 MG PO (21:45)
[2024-08-19] MEDS: CEFEPIME HCL 2 GM in 0.9 % SODIUM CHLORIDE 100 ML IV (21:45)
[2024-08-19] MEDS: MIRTAZAPINE 15 MG TABLET PO (21:45)
--- NOTE | 2024-08-19 21:47 | PC.NURSE ---
Patient back to floor from CT at 21:47.
[2024-08-19] MEDS: SODIUM CHLORIDE 0.9% 10ML SYR (RAD ONLY) 10 ML IV (21:50)
[2024-08-19] MEDS: IOPAMIDOL-370 (76%);100ML BOTTLE 75 ML IV (21:50)
--- NOTE | 2024-08-19 22:25 | PC.NURSE ---
The patient was requesting to have a sleep aid tonight. Merissa ELLINGTON was paged at this time for new orders.
[2024-08-19] MEDS: KETOROLAC 30MG/ML VIAL 30 MG IV (22:30)
[2024-08-19] MEDS: ALPRAZolam 0.25MG TABLET 0.25 MG PO (22:40)
[2024-08-19 22:50] LABS: Reflex Lactic Add Lactic Reflex
--- NOTE | 2024-08-19 23:04 | P.EN_ITS ---
Called by radiology team informing me that patient was asking is there a lot of forces individuals to receive treatment. Presented to the CT scanner had a long discussion with patient concerning patient's rights, CODE STATUS, and risk and benefits for treatment. Patient wanted to speak with his before he proceeded with any changes in plan. Patient did discuss his current condition and symptoms with and would like to proceed with additional interventions if there are some available at [facility] tertiary facility. Had images of CT scan of the abdomen pelvis with oral and IV contrast power shared with . Reached out to the transfer center spoke with Mare and informed her that the images were uploaded. Gave callback number in the event getting facility requires add itional conversation. Will update attending physician.
--- NOTE | 2024-08-19 23:15 | PC.NURSE ---
Patient refused to have lactic acid follow-up drawn at this time.
--- NOTE | 2024-08-19 23:44 | EXP.EVENT.NO ---
Received call back from medicine and spoke with Dr. Isacc red in his case. General surgeon at reviewed imagings that were uploaded via [employer], and after reviewing of those images he recommended to continue decompression with nasogastric tube and the surgeon voiced that there was no emergent surgical needs at this time. He recommended continuing current therapy and if patient had change in status to give them a call back. I will update attending physician.
[2024-08-20] VITALS: BP 118/73; PULSE 57; RESP 20; TEMP 37.1; O2SAT 99
[2024-08-20] MEDS: METRONIDAZ/SOD CHL 500 MG/100 ML PIGGYBACK 100 MG IV ×2 (00:45→11:48)
[2024-08-20 04:00] VITALS: BP 110/57; PULSE 77; RESP 18; TEMP 36.6; O2SAT 99; BMI 23.8
--- NOTE | 2024-08-20 04:40 | PC.NURSE ---
Addendum entered by Teena Reaves RN 08/20/24 06:27: NEUTROPENIC Original Note: Patient is alert and oriented; however, he has shown periods of intermittent confusion this shift. He is also hard of hearing; patient has a hearing aid available for his right ear in room. Patient's consulted with the patient at the bedside yesterday evening due to his expressed concerns about his ongoing plan of care; Craven RAKEL is aware that the patient previously expressed doubts during his CT scan this shift, but the patient is opting to continue with his plan of care for now (see event note for 08/19/24, 23:04). He was observed to have eyes closed, respirations even and unlabored, and no apparent distress throughout the majority of the night. A one time order of Xanax was obtained to give to the patient to aid in sleep; outcome was satisfactory. NG tube remains intact to the left nare, hooked to intermittent low wall suction. Gastric contents appearance maroon-colored with a slight odor; output measured and documented accordingly. Upon palpation of the patient's abdomen, he reported having some tenderness, and it is distended and puffy as well. Toradol IV was given per MAR for abdominal pain. Hypoactive bowel sounds were heard during auscultation. Patient has not had a bowel movement this shift and denies passing adequate gas. Heart sounds are within normal findings. Inspiratory rhonchi was heard in the right lung; diminished lung sounds were heard throughout. Loose, moist cough presented. Venturi mask remains in place at 15 L oxygen flow; oxygen saturations have remained > 90%. Bedside commode/urinal utilized for urination needs. Urine appearance was noted to be sveta in color with an odor. Patient has been allowed very few ice chips, tolerated well this shift; otherwise, he remains NPO. Aspiration precautions ongoing. Scheduled medications were administered as appropriately per MAR. Normal saline continues to infuse at 75 mL/hr. Patient requires x1 assistance during transfers/ambulation. At this time, the patient is resting in bed without any further complaints. No new needs at this time. Bed alarm on. Call light within reach.
[2024-08-20] MEDS: CEFEPIME HCL 2 GM in 0.9 % SODIUM CHLORIDE 100 ML IV (04:50)
[2024-08-20] MEDS: FLUTICASONE/UMECLIDIN/VILANTER 100/62.5/25MCG INHALER 1 PUFF IH (05:56)
[2024-08-20 06:13] LABS: Basophils % 2.3 % (0.1-2.0); Eosinophils % 0.6 % (0.1-12.0); Hematocrit 34.2 % (42.0-52.0); Hemoglobin 10.9 g/dL (14.1-18.0); Immature Granulocytes # 0.01 10^3uL; Immature Granulocytes % 0.6 %; Lymphocytes # 0.1 K/mm3 (0.7-4.5); Lymphocytes % 6.4 % (10-50); Mean Corpuscular HGB Conc 31.9 g/dL (31.8-35.4); Mean Corpuscular Hemoglobin 27.7 pg (27.0-31.2); Mean Corpuscular Volume 86.8 fl (80-94); Mean Platelet Volume 11.2 fl (7.4-10.4); Monocytes # 0.1 K/mm3 (0.1-1.0); Monocytes % 4.1 % (1.7-9.3); Neutrophils # 1.5 K/mm3 (1.8-7.8); Nucleated Red Blood Cells # 0 10^3/uL; Nucleated Red Blood Cells % 0 %; Platelet Count 78 K/mm3 (142-424); Red Blood Count 3.94 M/mm3 (4.60-6.20); Red Cell Distribution Width 17.8 % (11.5-17.5); Red Cell Distribution Width-SD 56.4 fL
[2024-08-20 06:20] LABS: Alanine Aminotransferase 431 U/L (12-78); Albumin Level 3.2 g/dl (3.5-5.0); Albumin/Globulin Ratio 1.1 (1.1-1.8); Alkaline Phosphatase 86 U/L (38-126); Anion Gap 10.1 mEq/L (5-15); Bilirubin,Total 3.2 mg/dl (0.2-1.3); Calcium 8.5 mg/dl (8.4-10.2); Carbon Dioxide 25 mmol/L (22.0-30.0); Chloride 110 mmol/L (98-107); Creatinine Clearance Estimated 39 mL/min (50-200); Estimated Glomerular Filt Rate 45 ml/min (>60); GFR (African American) 55 ML/MIN (>60); Globulin 2.9 g/dL (1.3-3.2); Glucose 125 mg/dl (74-100); Magnesium 2.9 mg/dl (1.6-2.3); Potassium 4.1 mmoL/L (3.5-5.1); Sodium 141 mmol/L (136-145); Total Protein,Serum 6.1 g/dl (6.3-8.2)
[2024-08-20 06:22] LABS: White Blood Count 1.7 K/mm3 (4.8-10.8)
[2024-08-20 06:24] LABS: MANUAL DIFFERENTIAL MANUAL DIFFERENTIAL (MANUAL DIFF)
--- NOTE | 2024-08-20 06:26 | PC.NURSE ---
Addendum entered by Teena Reaves RN 08/20/24 06:52: Justen BAI verbally ordered a bolus of LR to be infused over 2 hours to be given to the patient. Addendum entered by Teena Reaves RN 08/20/24 06:47: Lab called to report a critical BUN value of 83. Justen BAI was paged at this time to inform him about the lab value. Creatinine, AST, and ALT values were also relayed to him. Original Note: Lab called to report a critical WBC value of 1.7 for the patient. Merissa ELLINGTON was paged at this time to inform him about the lab value.
[2024-08-20 06:36] LABS: Lactic Acid 2.2 mmol/L (0.7-2.1)
[2024-08-20 06:41] LABS: Aspartate Amino Transferase 1109 U/L (17-59)
[2024-08-20 06:45] LABS: Blood Urea Nitrogen 83 mg/dl (9-20)
[2024-08-20] MEDS: LACTATED RINGERS 1000ML 1,000 ML 500 ML IV (07:03)
[2024-08-20 08:00] VITALS: BP 125/66; PULSE 134; RESP 17; O2SAT 97
[2024-08-20 08:30] LABS: Eosinophils % 2 % (0-3); Lymphocytes % 26 % (10-50); Monocytes % 2 % (2-9); Neutrophils % 70 % (42-76); Total Cells Counted 50
[2024-08-20 08:36] LABS: Acanthocytes 1+; Ovalocytes 1+; Platelet Estimate Moderate Decrease
[2024-08-20] MEDS: SUCRALFATE 1GM TABLET 1 GM PO (09:19)
[2024-08-20] MEDS: SENNA 8.6MG TABLET 8.6 MG PO (09:19)
[2024-08-20] MEDS: PANTOPRAZOLE 40MG VIAL 40 MG IV (09:20)
[2024-08-20] MEDS: SODIUM CHLORIDE 0.9% 10ML VIAL 10 ML IV (09:20)
[2024-08-20] MEDS: KETOROLAC 30MG/ML VIAL 30 MG IV ×2 (09:49→17:15)
[2024-08-20] MEDS: IPRATROPIUM/ALBUTEROL 3 ML NEB IH (10:55)
[2024-08-20 11:00] VITALS: PULSE 80
--- NOTE | 2024-08-20 11:01 | PC.NURSE ---
RESP CARE NOTE: Neb tx given per Dr Campuzano order. Pt does have an NG in nasal passage, and rhonchi is auscultated in throat but lung sounds are clear. Family at bedside. We will continue to monitor patient closely.
[2024-08-20] MEDS: ONDANSETRON 4MG/2ML VIAL 4 MG IV (11:38)
[2024-08-20] MEDS: MORPHINE 2MG/ML SYRINGE 2 MG IV ×2 (11:45→13:31)
[2024-08-20 12:00] VITALS: BP 118/51; PULSE 77; RESP 17; TEMP 36.9; O2SAT 91
--- NOTE | 2024-08-20 13:42 | US_ITS ---
FINAL REPORT TECHNIQUE: Multiple transverse and longitudinal scans were performed of the right upper quadrant of the abdomen. CLINICAL HISTORY: Shock liver, evaluate for thrombosis COMPARISON: CT abdomen and pelvis dated 08/17/2024 FINDINGS: The pancreas is obscured. There is fatty infiltration of the liver. There are 2 hypoechoic lesions in the right lobe of the liver which are not simple cysts. These 2 lesions correlate to the metastases on the recent CT. The portal vein and hepatic veins are patent. The patient was unable to hold her breath which makes pectoral evaluation limited. The gallbladder is unremarkable. The common duct is normal in 3 mm. IMPRESSION: Fatty liver. Liver lesions. Please see recent CT abdomen and pelvis report. There is flow within the portal vein and hepatic veins, although evaluation difficult. Reviewed, Interpreted and Dictated by Yas Coe MD Transcribed by Lou Child Authenticated and [facility]
--- NOTE | 2024-08-20 14:02 | XR_ITS ---
FINAL REPORT CLINICAL HISTORY: Worsening abdominal pain COMPARISON: 08/19/2024 FINDINGS: A single supine view the abdomen was obtained. There is an NG tube present in the stomach. There continues to be mild dilatation of small bowel loops in the abdomen and pelvis. There is some colonic gas present. There are no pathologic calcifications. Osseous structures are within normal limits. IMPRESSION: Persistent small bowel dilatation, ileus versus partial small bowel obstruction. Reviewed, Interpreted and Dictated by Yas Coe MD Transcribed by Lou Child Authenticated and [facility]
--- NOTE | 2024-08-20 15:46 | EXP.DC.SUM ---
General Admission date:: 08/18/24 HPI HPI HPI: Patient is a 79-year-old male who is known to the surgical service in the past. He has a history of hypertension, hyperlipidemia, chronic arterial occlusive disease, coronary artery disease with previous CABG, COPD, history of lung cancer (small cell diagnosed August 2021), hyperlipidemia, hypertension, carotid artery disease, history of atrial fibrillation, moderate aortic stenosis. He underwent emergent laparotomy with right hemicolectomy by Dr. Servando Dasilva on 03/07/2023 for significant ischemic colitis. He did have prolonged convalescence after that procedure and had issues with C. difficile colitis and ultimately development of complex abdominal hernias managed expectantly. 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 He underwent chemotherapy last week and developed some abdominal distention, abdominal cramping, nausea, and vomiting. He was found to have elevation of liver function tests and leukopenia. 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 He was admitted on 08/15/2024, 5 days ago. He has had some increasing abdominal pain and distention. He had initially declined nasogastric tube. Overnight patient had progressively distended abdomen with vomiting of feculent liquid. Finally nasogastric tube was placed. There was concern for possible aspiration and he was started on antibiotics. There was also some bloody drainage from the nasogastric tube. Gastroenterology saw the patient in consultation. Plain film imaging today reveals nasogastric tube in good position with findings of possible ileus versus obstruction. Surgical consultation was placed this afternoon. . Hospital Course Hospital Course Hospital Course: Lawrence Alonso is a 79-year-old male with metastatic lung cancer who had his third round of chemotherapy on 08/13/2024. Developed abdominal pain, nausea, vomiting. Has become dehydrated, unable to keep food down. Presented to outpatient infusion for labs and fluids, found to have elevated liver enzymes. Discussed case with oncology, requests admission for further management of SBO, transaminitis, dehydration, intolerance of p.o. intake. #SBO #Peritonitis #Hepatic failure #Metastatic small cell lung cancer #Liver metastasis #Leukopenia #Chronic mesenteric stenosis - Developed abdominal pain, nausea, vomiting after third round of chemotherapy on 08/13/[address] Kneroy Brewster at [facility]. Initially had significant transaminitis which improved with IV fluids. Patient does not wish to have chemotherapy anymore. ? Initial CT abdomen/pelvis suggestive of SBO versus ileus, but patient was having flatus and bowel movements at this time. As such, was treated with ileus with conservative management. ? However, on 08/18/2024, patient developed fecal emesis and NG tube was placed with about 400 cc dark green/brown output. No bowel movement/flatus since 08/18/2024. This was more consistent with SBO. Patient was hypoxic to 70% after this episode of emesis and was placed on Ventimask. Weaned to room air today. ? Patient does have a history of right hemicolectomy due to mesenteric ischemia. Suspect thrombosis in the setting of cancer. ? 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 ? Continue cefepime, metronidazole, NS at 125 mL/h. Lactic acid improving from 3.0-2.2 today. ? General Surgery consulted, and given patient's developing peritonitis with peritoneal signs including rebound tenderness they recommended transfer to tertiary facility in the setting of metastatic lung cancer, mesenteric arterial stenosis. ? Repeat CT abdomen/pelvis with oral contrast suggestive of high-grade stenosis with transition point in the mid lower abdomen. ? Today, patient's abdominal pain worsened with increased peritoneal signs. LFTs also worsening, AST/ALT 1109/431. Total bilirubin 3.2. ALP normal 86. Abdominal ultrasound with Doppler did not show portal vein thrombosis. ? Reached out to [facility] who placed patient on waitlist. ? Reached out to [facility] and spoke with general surgeon Dr. Bragg who graciously accepted patient for further evaluation and management. [facility] ? Anticoagulation with Eliquis held on 08/19/2024. #COPD exacerbation ? Increased wheezing today. Started DuoNebs every 6 hours. Continue Trelegy 100. #GERD #Gastritis ? Continue home pantoprazole, sucralfate. #CAD #Hypertension ? Continue home metoprolol succinate. Total time spent on discharge: 60 minutes on chart review, counseling, documentation, and direct care with patient. Exam Data for Last 24 hours Vital signs and Labs for Last 24 Hours: Temp Pulse Resp BP Pulse Ox O2 Del Method O2 Flow Rate 98.5 F 77 17 118/51 L 91 L Nasal Cannula 2 08/20/24 12:00 08/20/24 12:00 08/20/24 12:00 08/20/24 12:00 08/20/24 12:00 08/20/24 15:00 08/20/24 15:00 FiO2 50 08/19/24 06:06 Laboratory Results - last 24 hr 08/19/24 12:05: Chlamy pneumoniae PCR Not detected, Adenovirus (PCR) Not detected, B. pertussis DNA (PCR) Not detected, Coronavirus OC43 (PCR) Not detected, Coronavirus HKU1 (PCR) Not detected, Coronavirus 229E (PCR) Not detected, SARS-CoV-2 (PCR) Not detected, Coronavirus NL63 (PCR) Not detected, Human Metapneumovir PCR Not detected, Influenza A (H1) PCR Not detected, Influ A (H1N1/09) PCR Not detected, Influenza A (H3) PCR Not detected, Influenza Type A (PCR) Not detected, Influenza Type B (PCR) Not detected, M. pneumoniae (PCR) Not detected, Parainfluenza 1 (PCR) Not detected, Parainfluenza 2 (PCR) Not detected, Parainfluenza 3 (PCR) Not detected, Parainfluenza 4 (PCR) Not detected, RSV (PCR) Not detected, Entero/Rhino (PCR) Not detected 08/19/24 18:45: Lactate 3.0 H 08/20/24 06:01: WBC 1.7 L*, RBC 3.94 L, Hgb 10.9 L, Hct 34.2 L, MCV 86.8, MCH 27.7, MCHC 31.9, RDW 17.8 H, Plt Count 78 L, MPV 11.2 H, Neut % (Auto) 86.0 H, Lymph % (Auto) 6.4 L, [place] % (Auto) 4.1, Eos % (Auto) 0.6, Baso % (Auto) 2.3 H, Neut # (Auto) 1.5 L, Lymph # (Auto) 0.1 L, [place] # (Auto) 0.1, Eos # (Auto) 0.0, Baso # (Auto) 0.0, Total Counted 50, Neutrophils % (Manual) 70, Lymphocytes % (Manual) 26, Monocytes % (Manual) 2, Eosinophils % (Manual) 2, Platelet Estimate Moderate decrease, Ovalocytes 1+, Acanthocytes (Spur) 1+, Sodium 141, Potassium 4.1, Chloride 110 H, Carbon Dioxide 25, Anion Gap 10.1, BUN 83 H D, Creatinine 1.50 H, Estimated Creat Clear 39, Estimated GFR 45 L, Est GFR ( Amer) 55 L, Glucose 125 H, Lactate 2.2 H, Calcium 8.5, Magnesium 2.9 H D, Total Bilirubin 3.2 H, AST 1109 H* D, ALT 431 H*, Alkaline Phosphatase 86, Total Protein 6.1 L, Albumin 3.2 L, Globulin 2.9, Albumin/Globulin Ratio 1.1 I & O for Last 24 hours: Intake & Output 08/17/24 08/18/24 08/19/24 08/20/24 23:59 23:59 23:59 23:59 Intake Total 360 / 600 1240 / 1240 50 / 867 817 / 817 Output Total 0 / 0 900 / 900 725 / 1125 900 / 900 Balance 360 / 600 340 / 340 -675 / -258 -83 / -83 Weight 69.944 kg 69.94 kg 66.633 kg 67.33 kg Constitutional Constitutional: moderate distress *Routine HEENT Exam Head: Present normocephalic Eye: Present EOMI and PERRL ENT: Present mucous membranes moist *Routine Neck Exam Neck: Present supple; Absent lymphadenopathy *Routine Respiratory Exam Respiratory: Present CTA bilaterally *Routine Cardiovascular Exam Cardiovascular: Present RRR *Routine Abdominal Exam Abdominal: Present soft, normoactive bowel sounds, tenderness, distended and rebound; Absent guarding Comments: Moderate rebound tenderness especially in the left upper and lower quadrants. *Routine Extremities Exam Extremities: Absent cyanosis, clubbing or edema *Routine Skin Exam Skin: Present warm; Absent rash *Routine Neurological Exam Neurological: Present alert and oriented X3 Results Data Completed and Pending Labs on day of discharge: Labs from last 24 hours 08/20/24 08/19/24 08/19/24 06:01 18:45 12:05 WBC 1.7 L* RBC 3.94 L Hgb 10.9 L Hct 34.2 L MCV 86.8 MCH 27.7 MCHC 31.9 RDW 17.8 H Plt Count 78 L MPV 11.2 H Neut % (Auto) 86.0 H Lymph % (Auto) 6.4 L [place] % (Auto) 4.1 Eos % (Auto) 0.6 Baso % (Auto) 2.3 H Neut # (Auto) 1.5 L Lymph # (Auto) 0.1 L [place] # (Auto) 0.1 Eos # (Auto) 0.0 Baso # (Auto) 0.0 Total Counted 50 Neutrophils % (Manual) 70 Lymphocytes % (Manual) 26 Monocytes % (Manual) 2 Eosinophils % (Manual) 2 Platelet Estimate Moderate decrease Ovalocytes 1+ Acanthocytes (Spur) 1+ Sodium 141 Potassium 4.1 Chloride 110 H Carbon Dioxide 25 Anion Gap 10.1 BUN 83 H D Creatinine 1.50 H Estimated Creat Clear 39 Estimated GFR 45 L Est GFR ( Amer) 55 L Glucose 125 H Lactate 2.2 H 3.0 H Calcium 8.5 Magnesium 2.9 H D Total Bilirubin 3.2 H AST 1109 H* D ALT 431 H* Alkaline Phosphatase 86 Total Protein 6.1 L Albumin 3.2 L Globulin 2.9 Albumin/Globulin Ratio 1.1 Chlamy pneumoniae PCR Not detected Adenovirus (PCR) Not detected B. pertussis DNA (PCR) Not detected Coronavirus OC43 (PCR) Not detected Coronavirus HKU1 (PCR) Not detected Coronavirus 229E (PCR) Not detected SARS-CoV-2 (PCR) Not detected Coronavirus NL63 (PCR) Not detected Human Metapneumovir PCR Not detected Influenza A (H1) PCR Not detected Influ A (H1N1/09) PCR Not detected Influenza A (H3) PCR Not detected Influenza Type A (PCR) Not detected Influenza Type B (PCR) Not detected M. pneumoniae (PCR) Not detected Parainfluenza 1 (PCR) Not detected Parainfluenza 2 (PCR) Not detected Parainfluenza 3 (PCR) Not detected Parainfluenza 4 (PCR) Not detected RSV (PCR) Not detected Entero/Rhino (PCR) Not detected DS: Diagnosis Discharge Diagnosis (1) Ileus: Status: Acute Code(s): K56.7 - Ileus, unspecified (2) Intractable nausea and vomiting: Status: Acute Code(s): R11.2 - Nausea with vomiting, unspecified (3) Adverse effect of chemotherapy: Status: Acute Code(s): T45.1X5A - Adverse effect of antineoplastic and immunosuppressive drugs, initial encounter (4) Transaminitis: Status: Acute Code(s): R74.01 - Elevation of levels of liver transaminase levels (5) Dehydration: Status: Acute Code(s): E86.0 - Dehydration (6) Small cell lung cancer: Status: Acute Code(s): C34.90 - Malignant neoplasm of unspecified part of unspecified bronchus or lung (7) COPD (chronic obstructive pulmonary disease): Status: Acute Code(s): J44.9 - Chronic obstructive pulmonary disease, unspecified (8) CAD (coronary artery disease): Status: Acute Code(s): I25.10 - Atherosclerotic heart disease of [place] coronary artery without angina pectoris Qualifiers: Associated angina: without angina Coronary Disease-Associated Artery/Lesion type: bypass graft [place] vs. transplanted heart: [place] heart Qualified Code(s): I25.810 - Atherosclerosis of coronary artery bypass graft(s) without angina pectoris (9) Hypertension: Status: Acute Code(s): I10 - Essential (primary) hypertension (10) Hyperlipidemia: Status: Acute Code(s): E78.5 - Hyperlipidemia, unspecified Meds Home Medications and Allergies Home Medications ?Medication ?Instructions ?Recorded ?Confirmed ?Type albuterol sulfate 90 mcg/actuation 2 puff inhalation QIDP PRN 08/27/17 08/15/24 History aerosol inhaler (Ventolin HFA) Shortness Of Breath folic acid 1 mg tablet 1 mg PO DAILY 08/27/17 08/15/24 History fluticasone propionate 50 2 spray intranasal DAILY 08/18/22 08/15/24 History mcg/actuation nasal spray,suspension (Flonase Allergy Relief) multivitamin 1 tab PO DAILY 09/25/22 08/15/24 History spironolactone 25 mg tablet 25 mg PO DAILY 90 days #90 tabs 05/04/23 08/15/24 Rx metoprolol succinate 25 mg 25 mg PO DAILY #30 tabs 01/31/24 08/15/24 Rx tablet,extended release 24 hr atorvastatin 80 mg tablet 80 mg PO HS #30 tabs 02/05/24 08/15/24 Rx fluticasone fur. 100 mcg-umeclid 1 inh inhalation DAILY 90 days #90 04/22/24 08/15/24 Rx 62.5 mcg-vilant 25 mcg ea inhalat.powder (Trelegy Ellipta) apixaban 2.5 mg tablet (Eliquis) 2.5 mg PO BID 06/04/24 08/15/24 History mirtazapine 15 mg tablet 15 mg PO HS 08/13/24 08/15/24 History sucralfate 1 gram tablet 1 g PO BID 08/13/24 08/15/24 History montelukast 10 mg tablet 10 mg PO PM 08/15/24 08/15/24 History oxycodone 5 mg tablet 10 mg PO Q6HP PRN Severe Pain 08/15/24 08/15/24 History (Scale Score 7-10) pantoprazole 40 mg tablet,delayed 40 mg PO BID 08/15/24 08/15/24 History release New Prescriptions to Start Prescriptions: Allergies Allergy/AdvReac Type Severity Reaction Status Date / Time Penicillins Allergy Intermediate I-ITCHING; Verified 08/13/24 09:32 SWELLING Antihistamines - Ethanolamine Allergy Unknown Unknown Verified 08/13/24 09:32 allergy reaction Rienzi nut Allergy Rash Verified 08/13/24 09:32 doxycycline AdvReac Mild Rash Verified 08/13/24 09:32 Discharge Plan Disposition Patient Disposition: Xfer Short-Term Hosp Condition: Fair Discharge Order Discharge Orders: Discharge Order (Routine); Ordered 08/20/24 Ordered By: Bridger Campuzano Follow up Plan Follow up with: Kenroy Brewster MD [Staff Physician] - 08/22/24 10:30 am Curtis Montes MD [Primary Care Provider] - 08/25/24 12:15 pm Prescriptions/Medication Reconciliation: No Action metoprolol succinate 25 mg tablet extended release 24 hr 25 mg PO DAILY Qty: 30 3RF sucralfate 1 gram tablet 1 g PO BID Patient Comments: TAKE 1 TABLET BY MOUTH ON AN EMPTY STOMACH TWICE DAILY FOR 30 DAYS mirtazapine 15 mg tablet 15 mg PO HS Patient Comments: TAKE 1 TABLET BY MOUTH AT BEDTIME folic acid 1 mg tablet 1 mg PO DAILY albuterol sulfate [Ventolin HFA] 90 mcg/actuation HFA aerosol inhaler 2 puff inhalation QIDP PRN (Reason: Shortness Of Breath) multivitamin Tablet 1 tab PO DAILY Eliquis 2.5 mg tablet 2.5 mg PO BID spironolactone 25 mg tablet 25 mg PO DAILY 90 Days Qty: 90 3RF atorvastatin 80 mg tablet 80 mg PO HS Qty: 30 0RF Trelegy Ellipta 100-62.5-25 mcg blister with device 1 inh inhalation DAILY 90 Days Qty: 90 2RF fluticasone propionate [Flonase Allergy Relief] 50 mcg/actuation spray,suspension 2 spray intranasal DAILY Rx Instructions: administer into each nostril montelukast 10 mg tablet 10 mg PO PM Patient Comments: TAKE 1 TABLET BY MOUTH AT BEDTIME pantoprazole 40 mg tablet,delayed release (DR/EC) 40 mg PO BID oxycodone 5 mg tablet 10 mg PO Q6HP PRN (Reason: Severe Pain (Scale Score 7-10)) Problem Reconciliation Problems Reviewed?: Yes Patient Discharge Instructions Patient Instructions: DI for Nausea -- Adult, DI for Vomiting -- Adult, Stop Light Pneumonia, Stop Light COPD Print Language: Croatian Providers Primary Care Provider: Curtis Montes Admit Provider: Lawrence Fitzgerald Attending Provider: Lawrence Fitzgerald
[2024-08-20] MEDS: HYDROMORPHONE 2MG/ML SYRINGE 1 MG IV (16:02)
--- NOTE | 2024-08-20 16:03 | PC.NURSE ---
Lawrence Osunamehranjuanjose 1945Current Medications Albuterol/Ipratropium (Ipratropium/Albuterol 3 Ml Neb) 3 ml IH Q6RT [facility] Stop: 09/19/24 09:39 Last Admin: 08/20/24 10:55 Dose: 3 ml Calcium Polycarbophil (Calcium Polycarbophil 625mg Tab) 1,250 mg PO BIDP PRN PRN Reason: diarrhea Stop: 09/15/24 15:23 Last Admin: 08/18/24 08:49 Dose: 1,250 mg Fluticasone/Umeclidinium/Vilanterol (Fluticasone/Umeclidin/Vilanter 100/62.5/25mcg Inhaler) 1 puff IH DAILY [facility] Stop: 09/15/24 08:59 Last Admin: 08/20/24 05:56 Dose: 1 puff Metronidazole (Flagyl 500mg/100ml Ivpb) 500 mg in 100 mls @ 100 mls/hr IV Q12H [facility] Stop: 08/29/24 00:44 Last Admin: 08/20/24 11:48 Dose: 100 mls/hr Sodium Chloride (Sod Chlor 0.9% 1000ml Bag) 1,000 mls @ 75 mls/hr IV .[id number] [facility] Stop: 09/18/24 13:14 Last Admin: 08/20/24 03:35 Dose: Not Given Cefepime HCl 2 gm/ Sodium (Chloride) 100 mls @ 200 mls/hr IV BID [facility] Stop: 08/29/24 18:59 Ketorolac Tromethamine (Ketorolac 30mg/Ml Vial) 30 mg IV Q6HP PRN PRN Reason: Moderate to Severe Pain (4-10) Stop: 08/23/24 15:31 Last Admin: 08/20/24 09:49 Dose: 30 mg Metoprolol Succinate (Metoprolol Succinate Xl 25mg Tablet) 25 mg PO DAILY [facility] Stop: 09/15/24 08:59 Last Admin: 08/20/24 09:07 Dose: Not Given Mirtazapine (Mirtazapine 15 Mg Tablet) 15 mg PO HS [facility] Stop: 09/14/24 20:59 Last Admin: 08/19/24 21:45 Dose: 15 mg Montelukast Sodium (Montelukast Sodium 10mg Tab) 10 mg PO HS [facility] Stop: 09/15/24 20:59 Last Admin: 08/19/24 21:45 Dose: 10 mg Morphine Sulfate (Morphine 4mg/Ml Syringe) 4 mg IV Q4HP PRN PRN Reason: Severe Pain (7-10) Stop: 09/19/24 11:40 Morphine Sulfate (Morphine 2mg/Ml Syringe) 2 mg IV Q4HP PRN PRN Reason: Moderate Pain (4-6) Stop: 09/19/24 11:40 Last Admin: 08/20/24 13:31 Dose: 2 mg Ondansetron HCl (Ondansetron 4mg/2ml Vial) 4 mg IV Q6HP PRN PRN Reason: Nausea Stop: 09/16/24 17:21 Last Admin: 08/20/24 11:38 Dose: 4 mg Pantoprazole Sodium (Pantoprazole 40mg Vial) 40 mg IV BID [facility] Stop: 09/17/24 20:59 Last Admin: 08/20/24 09:20 Dose: 40 mg Promethazine HCl (Promethazine Hcl 25mg/Ml 1ml Vial) 25 mg IV Q6HP PRN PRN Reason: Nausea And Vomiting Stop: 09/14/24 17:31 Last Admin: 08/16/24 19:52 Dose: 25 mg Sennosides (Senna 8.6mg Tablet) 8.6 mg PO DAILY [facility] Stop: 09/18/24 08:59 Last Admin: 08/20/24 09:19 Dose: 8.6 mg Sodium Chloride (Sodium Chloride 0.9% 25ml Bag) 25 ml IV NEEDED PRN PRN Reason: for Use with IV Promethazine Stop: 09/14/24 17:31 Last Admin: 08/16/24 19:52 Dose: 25 ml Sodium Chloride (Sodium Chloride 0.9% 10ml Vial) 10 ml IV NEEDED PRN PRN Reason: dilute protonix Stop: 09/17/24 20:55 Last Admin: 08/20/24 09:20 Dose: 10 ml Sodium Chloride (Sodium Chloride 0.9% 10ml Flush Syringe) 10 ml IV NEEDED PRN PRN Reason: Maintain IV Site Stop: 09/18/24 13:02 Sucralfate (Sucralfate 1gm Tablet) 1 gm PO BID [facility] Stop: 09/14/24 20:59 Last Admin: 08/20/24 09:19 Dose: 1 gm
== END 2024-08-20 17:15 | disposition short-term general hospital (02) | DRG 388 ==
PROVIDERS: Internal Medicine Medical Oncology; Nurse Practitioner Acute Care; Student in an Organized Health Care Education/Training Program; Admitting Provider Internal Medicine Adolescent Medicine; PCP Internal Medicine Adolescent Medicine; Visit Provider Internal Medicine Adolescent Medicine
DX: K56.609 Unspecified intestinal obstruction, unspecified as to partial versus complete obstruction (principal); D61.810 Antineoplastic chemotherapy induced pancytopenia; J69.0 Pneumonitis due to inhalation of food and vomit; K65.9 Peritonitis, unspecified; K72.00 Acute and subacute hepatic failure without coma; C34.90 Malignant neoplasm of unspecified part of unspecified bronchus or lung; C78.7 Secondary malignant neoplasm of liver and intrahepatic bile duct; I25.810 Atherosclerosis of coronary artery bypass graft(s) without angina pectoris; J44.1 Chronic obstructive pulmonary disease with (acute) exacerbation; R11.2 Nausea with vomiting, unspecified; T45.1X5A Adverse effect of antineoplastic and immunosuppressive drugs, initial encounter; R74.01 Elevation of levels of liver transaminase levels; E86.0 Dehydration; I25.2 Old myocardial infarction; K72.90 Hepatic failure, unspecified without coma; I25.10 Atherosclerotic heart disease of native coronary artery without angina pectoris; K29.70 Gastritis, unspecified, without bleeding; R74.8 Abnormal levels of other serum enzymes; D70.1 Agranulocytosis secondary to cancer chemotherapy; Z90.49 Acquired absence of other specified parts of digestive tract; I10 Essential (primary) hypertension; K21.9 Gastro-esophageal reflux disease without esophagitis; I73.9 Peripheral vascular disease, unspecified; R11.13 Vomiting of fecal matter; E78.5 Hyperlipidemia, unspecified; Z88.0 Allergy status to penicillin; Z91.018 Allergy to other foods; Z88.1 Allergy status to other antibiotic agents; Z81.1 Family history of alcohol abuse and dependence; Z80.0 Family history of malignant neoplasm of digestive organs; Z82.5 Family history of asthma and other chronic lower respiratory diseases; Z83.79 Family history of other diseases of the digestive system; Z95.1 Presence of aortocoronary bypass graft; Z87.891 Personal history of nicotine dependence; Z95.820 Peripheral vascular angioplasty status with implants and grafts; Z79.01 Long term (current) use of anticoagulants; Z79.899 Other long term (current) drug therapy; Z79.51 Long term (current) use of inhaled steroids
CPT/HCPCS: 36415; 71045; 71260; 74018; 74177; 80048; 80053; 83605; 83735; 84100; 85007; 85025; 87633; 93975; 94640; 96360; 96375; J0696; J1100; J1171; J1885; J2270; J2405; J2470; J2550; J3475; J7030; J7120; J7620; Q9963; Q9967; S0119